=== PATIENT | female | born 1955 | race Caucasian/White ===

== ENCOUNTER 2019-01-14 23:28 | Inpatient (IN) | payer OTHER ==
[~2019-01-14] VITALS: Ht 165.1 cm; Wt 89.6 kg
--- OUTSIDE RECORDS SUMMARY | ~2019-01-14 | XMS | Clinical Summary ---
Demographics + + + | Address | [address] | | | [address] | | | [place] [address] | + + + | Home Phone | | + + + | Preferred Language | Unknown | + + + | Marital Status | | + + + | Tenriism Affiliation | Unknown | + + + | Race | Unknown | + + + | Ethnic Group | Unknown | + + + Author + + + | Author | [facility] | | | and [place] | + + + | Organization | [facility] | | | and [place] | + + + | Address | Unknown | + + + | Phone | Unavailable | + + + Care Team Providers + +------+ + | Care Metal Base Blocker Name | Role | Phone | + +------+ + | Braydon Lowry DO | PCP | Unavailable | + +------+ + Allergies Not on File Medications Not on file Active Problems Not on file Immunizations + + + + | Name | Dates Previously Given | Next Due | + + + [...] Filed Vital Signs + + + + | Vital Sign | Reading | Time Taken | + + + + | Blood Pressure | 134/69 | 07/27/2016 1101 PDT | + + + + | Pulse | 67 | 07/27/2016 1101 PDT | + + + + | Temperature | 36.2 C (97.1 F) | 06/01/2016 1350 PST | + + + + | Respiratory Rate | 14 | 06/01/2016 1350 PST | + + + + | Oxygen Saturation | - | - | + + + + | Inhaled Oxygen | - | - | | Concentration | | | + + + + | Weight | 86.2 kg (190 lb) | 07/27/20161100 PDT | + + + + | Height | 165.1 cm (5' 5") | 07/27/20161100 PDT | + + + + | Body Mass Index | 31.62 | 07/27/20161100 PDT | + + + + Plan of Treatment + + + + + | Health Maintenance | Due Date | Last Done | Comments | + + + + + | Vaccine: | | | | | Dtap/Tdap/Td (1 - | 5 | | | | Tdap) | | [...]
--- OUTSIDE RECORDS SUMMARY | ~2019-01-14 | XMS | Clinical Summary ---
Demographics + + + | Address | [address] | | | [address] | | | [place] [address] | + + + | Home Phone | | + + + | Preferred Language | Unknown | + + + | Marital Status | | + + + | Confucianism Affiliation | Unknown | + + + | Race | Unknown | + + + | Ethnic Group | Unknown | + + + Author + + + | Author | [facility] [email or web address] (Historical as of | | | 11-25-18) | + + + | Organization | [facility] [email or web address] (Historical as of | | | 11-25-18) [...] [place] | | | | | [id number] | | + + + + + Care Team Providers + +------+ + | Care Traveler Changer Name | Role | Phone | + [...] | 20 | | e | | [address] UNITS capsule | | | | 16 [...] +------+-------+ + | PREMERA | PREMER | [id number] | | | [address] [address] | | | A BLUE | | | | [place], [place] | | | CROSS | | | | [phone] | | | FED | | | [...] | sammi | | | [phone] | [phone] | + +--------+ +--------+ + +
--- OUTSIDE RECORDS SUMMARY | ~2019-01-14 | XMS | Clinical Summary ---
Demographics + + + | Address | [address] | | | [address] | | | [place] [address] | + + + | Home Phone | | + + + | Preferred Language | Unknown | + + + | Marital Status | | + + + | Caodaism Affiliation | Unknown | + + + | Race | Unknown | + + + | Ethnic Group | Unknown | + + + Author + + + | Author | [facility] (Historical as of | | | 11-25-18) | + + + | Organization | [facility] (Historical as of | | | 11-25-18) [...] [place] | | | | | [phone] | | + + + + + Care Team Providers + +------+ + | Care Manager Electronic Name | Role | Phone | + [...] | 20 | | e | | [address] UNITS capsule | | | | 16 [...] +------+-------+ + | PREMERA | PREMER | [id number] | | | [address] [address] | | | A BLUE | | | | [place], [place] | | | CROSS | | | | [phone] | | | FED | | | [...] | sammi | | | [phone] | [phone] | + +--------+ +--------+ + +
--- OUTSIDE RECORDS SUMMARY | ~2019-01-14 | XMS | Clinical Summary ---
Demographics + + + | Address | [address] | | | [address] | | | [place] [address] | + + + | Home Phone | | + + + | Preferred Language | Unknown | + + + | Marital Status | | + + + | Scientologist Affiliation | Unknown | + + + | Race | Unknown | + + + | Ethnic Group | Unknown | + + + Author + + + | Author | [facility] | | | and [place] | + + + | Organization | [facility] | | | and [place] | + + + | Address | Unknown | + + + | Phone | Unavailable | + + + Care Team Providers + +------+ + | Care Commercial Baker Helper Name | Role | Phone | + [...]
--- OUTSIDE RECORDS SUMMARY | ~2019-01-14 | XMS | Clinical Summary ---
Demographics + + + | Address | [address] | | | [address] | | | [place] [address] | + + + | Home Phone | | + + + | Preferred Language | Unknown | + + + | Marital Status | | + + + | Presybeterian Affiliation | Unknown | + + + | Race | Unknown | + + + | Ethnic Group | Unknown | + + + Author + + + | Author | [facility] [employer] (Historical as of | | | 11-25-18) | + + + | Organization | [facility] [employer] (Historical as of | | | 11-25-18) [...] [place] | | | | | [phone] | | + + + + + Care Team Providers + +------+ + | Care Qa Analyst Name | Role | Phone | [...] | 20 | | e | | [address] UNITS capsule | | | | 16 [...] +------+-------+ + | PREMERA | PREMER | [id number] | | | [address] [address] | | | A BLUE | | | | [place], [place] | | | CROSS | | | | [phone] | | | FED | | | [...] | sammi | | | [phone] | [phone] | + +--------+ +--------+ + +
--- OUTSIDE RECORDS SUMMARY | ~2019-01-14 | XMS | Clinical Summary ---
Demographics + + + | Address | [address] | | | [address] | | | [place] [address] | + + + | Home Phone | | + + + | Preferred Language | Unknown | + + + | Marital Status | | + + + | Yarsanism Affiliation | Unknown | + + + | Race | Unknown | + + + | Ethnic Group | Unknown | + + + Author + + + | Author | [facility] | | | and [place] | + + + | Organization | [facility] | | | and [place] | + + + | Address | Unknown | + + + | Phone | Unavailable | + + + Care Team Providers + +------+ + | Care Marketing Account Executive Name | Role | Phone | [...]
[2019-01-14] MEDS ORDERED: CARAFATE1 GM/10 ML PO (23:48)
[2019-01-14] MEDS ORDERED: PLAVIX75 MG PO (23:48)
[2019-01-14] MEDS ORDERED: CARVEDILOL3.125 MG PO (23:49)
[2019-01-14] MEDS ORDERED: PRAVACHOL40 MG PO (23:49)
[2019-01-14] MEDS ORDERED: NOVOLOG MI100 UNIT/1 SUB-Q (23:49)
--- NOTE | 2019-01-15 03:57 | NUR ---
PT ARRIVED AT 0245 TO FLOOR WITH . V/S ARE WDL. HER BP HAS DROPPED SIGNIFICANTLY FROM ED TO MS TRANSFER. WILL CONTINUE TO MONITOR. ALL LOBES ARE CLEAR, ABD SOUNDS ARE PRESENT, ABD IS SOFT BUT TENDER TO TOUCH ON THE LEFT SIDE. NO PERIPHERAL EDEMA NOTED AND OVERALL STRENGTH IS +, PT IS AAOX4. PT DENIES PAIN AND N/V THUS FAR.
--- NOTE | 2019-01-15 04:18 | NUR ---
CALL LIGHT ANSWERED. SBA TO RESTROOM FOR VOID AND BACK TO BED. PT RATES PAIN 7/10 IN UPPER EPIGASTRIC AREA. PRN PAIN MEDICATION ADMINISTERED. CALL LIGHT IN REACH. IVF INFUSING WNL.
--- NOTE | 2019-01-15 06:35 | NUR ---
PT ARRIVED ON FLOOR AT 0245. SO FAR PT HAS ONLY REQUIRED IV MORPHINE X1 AND HAS NOT HAD ANY N/V. ALL LOBES ARE CLEAR, ABD IS SOFT TO TOUCH BUT TENDER ON THE LEFT SIDE. NO PERIPHERAL EDMEMA NOTED, V/S ARE WDL.
--- NOTE | 2019-01-15 08:46 | NUR ---
PT SITTING UP IN BED AWAKE. PT AND AWAITING POC AND EVALUATION FROM DR. WOMACK. PT REPORTING 7/10 L EPIGASTRIC PAIN, MEDICATED WITH IV MORPHINE. DENIES NAUSEA OR OTHER CONCERN. IV INFUSING WNL IN RIGHT AC, DRESSING CDI. TRACE EDEMA OF BLE NOTED. CALL LIGHT WITHIN REACH.
--- NOTE | 2019-01-15 11:27 | NUR ---
PT REPORTS NAUSEA AFTER STARTING MIRALAX PREP. MEDICATED WITH IV ZOFRAN.
--- NOTE | 2019-01-15 11:29 | NUR ---
PT RESTING IN BED, MENTIONED THAT SHE IS MORE CONMFORTABLE THAN WHEN SHE CAME IN. WAITING TODAY FOR SCOPE AND MORE TESTS TO KNOW WHAT STEPS TO TAKE NEXT. PT REQUESTED PRAYER, WILL FOLLOW NEEDED
--- NOTE | 2019-01-15 12:15 | NUR ---
REPORTS NAUSEA RESOLVED AT THIS TIME. AT BEDSIDE. NO NEEDS OR CONCERNS AT THIS TIME. CALL LIGHT WITHIN REACH.
--- NOTE | 2019-01-15 12:20 | NUR ---
SPOKE WITH PATIENT IN ROOM. PATIENT LIVES WITH . KNOWS NO BARRIERS TO RETURNING HOME SAFELY AT DISCHARGE. WILL FOLLOW NEEDED.
[2019-01-15] MEDS ORDERED: GLYBURIDE2.5 MG PO (12:42)
[2019-01-15] MEDS ORDERED: GABAPENTIN300 MG PO (12:43)
--- NOTE | 2019-01-15 15:49 | NUR ---
PT REPORTS IMPROVEMENT IN PAIN AND NAUSEA AFTER IV TYLENOL ADMINISTRATION. UP TO RESTROOM INDEPENDENTLY. FINISHED WITH FIRST BOTTLE OF MIRALAX, STARTING SECOND ONE AT THIS TIME. PT AT BEDSIDE.
--- NOTE | 2019-01-15 16:48 | EKG ---
[facility] [address] [place], [place] [address] Signed Sinus rhythm with occasional premature ventricular complexes Otherwise normal ECG No previous ECGs available Confirmed by SAV ASHTON DO ([id number]) on 01/15/2019 4:48:39 PM Electronically Signed By: SAV ASHTON DO 01/15/19 1648 PATIENT NAME: CAPRICE AMADOR Electrocardiogram DATE OF : 55 PHYSICIAN: SAV ASHTON DO REPORT #: [id number] REPORT IS CONFIDENTIAL AND NOT TO BE RELEASED WITHOUT AUTHORIZATION
--- NOTE | 2019-01-15 18:25 | NUR ---
PT LYING IN BED. UP INDEPENDENTLY TO RESTROOM. DENIES NEEDS OR CONCERNS AT THIS TIME. IV INFUSING WNL IN RIGHT ARM. CALL LIGHT WITHIN REACH.
--- NOTE | 2019-01-15 20:10 | NUR ---
RECEIVED REPORT FROM DAY SHIFT RN. PATIENT IS RESTING IN BED. PATIENT RATES PAIN AT A 8/10. PATIENT GIVEN PRN PAIN MEDICATION PER ORDER. NO FURTHER NEEDS NOTED. CALL LIGHT IN REACH.
--- NOTE | 2019-01-15 21:05 | NUR ---
PATIENTS ASSESMENT COMPLETED. PATIENT IS RESTING IN BED. PATIENT IS INDEPENDENT IN THE ROOM AND HAS AN ESTIMATED 1/2 GATORADE BOTTLE OF BOWEL PREP LEFT. PATIENT DENIES ANY NAUSEA. PATIENT RATES PAIN AT A 7/10. PATIENT GIVEN PRN TYLENOL PER ORDER FOR PAIN. PATIENTS IV IS INFUSING PER ORDER. PATIENTS EVENING MEDICATIONS GIVEN PER ORDER. PATIENT HAS HYPERACTIVE BOWEL TONES. CRAMPING NOTED. PATIENT DENIES ANY NEEDS. CALL LIGHT IN REACH.
--- NOTE | 2019-01-15 22:15 | NUR ---
PATIENT IS RESTING IN BED WATCHING TV. PATIENT RATES PAIN AT A 7/10. PATIENT GIVEN PRN PAIN MEDICATION PER ORDER. PATIENT DENIES ANY FURTHER NEEDS AT THIS TIME. ABOUT 200ML LEFT OF BOWEL PREP. CALL LIGHT IN REACH.
--- NOTE | 2019-01-15 23:25 | NUR ---
PATIENT IS RESTING IN BED. PATIENT RATES PAIN AT A 3/10. PATIENT DENIES THE NEED FOR PAIN MEDICATION AT THIS TIME. CALL LIGHT IN REACH.
--- NOTE | 2019-01-16 00:16 | NUR ---
PATIENT IS RESTING IN BED WATCHING TV. PATIENT DENIES ANY NAUSEA. NO PAIN NOTED. CALL LIGHT IN REACH.
--- NOTE | 2019-01-16 02:13 | NUR ---
PATIENT ASSESMENT COMPLETED. PATIENT RATES PAIN AT A 7/10 IN HER ABD. PATIENT GIVEN PRN PAIN MEDICATION PER ORDER. PATIENTS SCHEDULED MEDICATIONS GIVEN PER ORDER. PATIENTS BMS ARE LOOSE WITH SMALL SEDIMENT NOTED. PATIENT DENIES ANY NAUSEA. VITALS TAKEN AND RECORDED. INTAKE AND OUPUT RECORDED. PATIENT DENIES ANY FURTHER NEEDS. CALL LIGHT IN REACH.
--- NOTE | 2019-01-16 02:59 | NUR ---
PATIENT IS RESTING IN BED. PATIENT RATES PAIN AT A 4/10. PATIENT DENIES THE NEED FOR PAIN MEDICATION AT THIS TIME. PATIENT DENIES ANY FURTHER NEEDS. CALL LIGHT IN REACH.
--- NOTE | 2019-01-16 04:07 | NUR ---
PATIENT CALLED AND COMPLAINED AT OF ABD PAIN AT AN 8/10. PATIENT GIVEN PRN PAIN MEDICATION PER ORDER. PATIENT DENIES ANY FURTHER NEEDS AT THIS TIME. CALL LIGHT IN REACH.
--- NOTE | 2019-01-16 05:02 | NUR ---
PATIENT RESTED ON AND OFF THROUGHOUT THE SHIFT. PATIENT IS NPO AT THIS TIME. PATIENT IS ON RA. PATIENT IS INDEPENDENT IN THE ROOM. PATIENT COMPLETED BOWEL PREP AT APPROX 2300. PATIENT HAD MULTIPLE LIQUID BMS. PATIENT RECEIVED PRN PAIN MEDICATION MULTIPLE TIMES. PATIENT DENIED ANY NAUSEA. PATIENT IS AAOX3 AND USES CALL LIGHT APPROPRIATELY.
--- NOTE | 2019-01-16 05:42 | NUR ---
PATIENT CALLED AND NOTIFIED STAFF THAT SHE WAS FEELING LIKE HER STOMACH WAS UPSET. PATIENT GIVEN PRN NAUSEA MEDICATION PER ORDER. PATIENT COMPLAINS OF PAIN. PATIENT HAS ELEVAED TEMP. PATIENT GIVEN PRN TYLENOL FOR TEMP AND PAIN. PATIENTS INTAKE AND OUPUT REOCRDED. PATIENT DENIES ANY FURTHER NEEDS. CALL LIGHT IN REACH.
--- NOTE | 2019-01-16 09:09 | NUR ---
SPOKE WITH PT AND . THEY WOULD LIKE HER IMAGING RELEASED TO DAUGHTER AT [facility]. GIVEN RELEASE FORM TO FILL OUT AND SIGN.
--- NOTE | 2019-01-16 09:10 | NUR ---
PT SITTING UP IN BED AWAKE WATCHING TV. REPORTS 6/10 ABD PAIN. MEDICATED WITH IV MORHPINE. DENIES NAUSEA AT THIS TIME. HAD MULTIPLE LOOSE BM'S LAST NIGHT AFTER BOWEL PREP. NO BASSEM BLOOD NOTED. NO EMSIS. NOTED H&H LOW THIS AM. NOTIFIED DR. WOMACK. RECIEVED ORDER FOR TYPE AND CROSS FOR 2 UNITS PRB'S ON HOLD. PT NPO. IV INFUSING WNL. AT BEDSIDE. CALL LIGHT WITHIN REACH.
--- NOTE | 2019-01-16 09:46 | NUR ---
PATIENT RESTING IN BED. IN ROOM. VITAL SIGNS AND I&O DONE. LOW BLOOD PRESSURE. RN NOTIFIED. CALL LIGHT WITHIN REACH. NO OTHER NEEDS AT THIS TIME
[2019-01-16] MEDS ORDERED: CARVEDILOL25 MG PO (10:06)
[2019-01-16] MEDS ORDERED: LOSARTAN POTASS50 MG PO (12:05)
[2019-01-16] MEDS ORDERED: HYDROCHLOROTH12.5 MG PO (12:05)
--- NOTE | 2019-01-16 12:06 | NUR ---
MED REC COMPLETE
--- NOTE | 2019-01-16 13:45 | NUR ---
PT UP TO VOID WITH SBA. TRANSFERRED INDEPENDENTLY TO STRETCHER AND TRANSPORTED TO OR FOR COLONOSCOPY. LINENS CHANGED. FAMILY REMAINS IN ROOM.
--- NOTE | 2019-01-16 13:52 | NUR ---
PATIENT IN SURGERY. I&O DONE.
--- NOTE | 2019-01-16 14:16 | NUR ---
PT TAKEN TO OR FOR SCOPE. FAMILY WAITING IN RM, WILL FOLLOW NEEDED
--- NOTE | 2019-01-16 15:13 | NUR ---
01/16/19 1513 Ara Jeter 1510 PATIENT ARRIVES TO PACU SLEEPING, DOES NOT RESPOND TO VERBAL STIMULI. RESP EVEN AND UNLABORED, ORAL AIRWAY IN PLACE, MASK AT 10 LITERS, DECREASED TO 6 LITERS.
--- NOTE | 2019-01-16 16:04 | NUR ---
PT RETURNED FROM OR. DROWSY BUT ORIENTED. STATED SHE NEEDED TO USE RESTROOM. STEADY ON FEET WITH SBA TO BATHROOM. PASSED MODERATE AMOUNT OF GAS. AMB TO HOSPITAL BED. VS STABLE. PT REPORTING 8/10 LEFT EPIGASTRIC PAIN. MEDICATED WITH IV MORPHINE. DENIES NAUSEA. CLEAR LIQUIDS ORDERED. AND DAUGHTER AT BEDSIDE. CALL LIGHT WITHIN REACH.
--- NOTE | 2019-01-16 17:49 | NUR ---
PATIENT RESTING IN BED. AND DAUGHTER IN ROOM. VITAL SIGNS AND I&O DONE. PATIENT COMPLAINS ABOUT PAIN. RN NOTIFIED. CALL LIGHT WITHIN REACH. NO OTHER NEEDS AT THIS TIME
--- NOTE | 2019-01-16 17:50 | NUR ---
PT REPORTING 8/10 ABD PAIN. MEDICATED WITH IV MORPHINE. TAKING SIPS OF WATER. KARTHIK WELL. DAUGHTER AND AT BEDSIDE. CALL LIGHT WITHIN REACH.
--- NOTE | 2019-01-16 20:18 | NUR ---
RECEIVED REPORT FROM DAY SHIFT RN. PATIENT IS RESTING IN BED. PATIENT COMPLAINS AT OF PAIN AND NAUSEA. PATIENT GIVEN PRN NAUSEA AND PAIN MEDICATION PER ORDER. PATIENT HAS FAMILY PRESENT NO FURTHER NEEDS NOTED. CALL LIGHT IN REACH.
--- NOTE | 2019-01-16 20:47 | NUR ---
PT IV FLUIDS COMPLETE, NEW BAG INFUSING, WARM BLANKET PROVIDED. AFTER USING BATHROOM, ASSISTED. BACK IN BED, PERSONAL SUPPLIES WITHIN REACH.
--- NOTE | 2019-01-16 21:40 | NUR ---
PATIENT ASSESEMENT COMPLETED. PATIENTS VITALS TAKEN AND RECORDED. INTAKE AND OUPUT RECORDED. PATIENTS EVENING MEDICATIONS GIVEN PER ORDER. PATIENT REPORTS 6/10 PAIN IN HER LUQ AREA. PATIENT GIVEN PRN PAIN MEDICATION PER ORDER. PATIENT DENIES ANY NAUSEA. PATIENTS ABD IS SOFT BUT TENDER. PATIENT HAS FAMILY PRESENT IN THE ROOM. NO FURTHER NEEDS NOTED. CALL LIGHT IN REACH.
--- NOTE | 2019-01-16 23:02 | NUR ---
PATIENT IS RESTING IN BED WATCHING TV. PATIENT RATES PAIN AT A 4/10. PATIENT DENIES THE NEED FOR PAIN MEDICATION AT THIS TIME. PATIENT DENIES ANY NAUSEA. NO NEEDS NOTED. IV INFUSING PER ORDER. ABX INFUSING PER ORDER. CALL LIGHT IN REACH. ASLEEP ON THE COUCH.
--- NOTE | 2019-01-17 01:09 | NUR ---
PATIENT IS RESTING IN BED AND IS IN RECLINER WATCHING TV. PATIENT DENIES ANY PAIN OR NAUSEA. NO NEEDS NOTED. CALL LIGHT IN REACH.
--- NOTE | 2019-01-17 01:39 | NUR ---
PATIENTS SCHEDULED MEDICATIONS GIVEN PER ORDER. PATIENT DENIES ANY PAIN OR NAUSEA. PATIENTS VITALS TAKEN AND RECORDED. INTAKE AND OUPUT RECORDED. PATIENT IS RESTING IN BED. PATIENTS REMAINS IN THE ROOM. PATIENT REFUSES 1 UNIT OF INSULIN FOR A 150 BS. PATIENT EDUCATED ON INSULIN AN SS. PATIENT VERBALIZES UNDERSTANDING AND STILL DECLINES. NO FURTHER NEEDS NOTED. CALL LIGHT IN REACH.
--- NOTE | 2019-01-17 03:45 | NUR ---
PATIENT CALLED AND REQUESTED PAIN MEDICATION FOR 8/10 PAIN IN HER LUQ. PATIENT GIVEN PRN PAIN MEDICATION PER ORDER. PATIENT DENIES ANY NAUSEA. IV INFUSING PER ORDER. PATIENTS REMAINS IN THE ROOM. PATIENT DENIES ANY FURTHER NEEDS. CALL LIGHT IN REACH.
--- NOTE | 2019-01-17 05:09 | NUR ---
PATIENT CALLED AND REQUESTED PAIN MEDICATION. PATIENT GIVEN PRN PAIN MEDICATION FOR 7/10 PAIN IN HER LUQ. PATIENT DENIES ANY NAUSEA. VITALS TAKEN AND RECORDED. INTAKE AND OUPUT RECORDED. IV INFUSING PER ORDER. NO FURTHER NEEDS NOTED. CALL LIGHT IN REACH.
--- NOTE | 2019-01-17 05:38 | NUR ---
PATIENT STRUGGLED TO REST THIS SHIFT. PATIENT IS ON CLEARS, TOELRATING OK, DECREASED APPETITE, AND PRN NAUSEA MEDICATION GIVEN X1. PATIENT RECEIVED PRN PAIN MEDICATION MULTIPLE TIMES. PATIENT IS INDEPENDENT IN THE ROOM. PATIENT HAS SCDS IN USE. PATIENT HAS IV INFUSING PER ORDER. PATEINT IS ON RA. ACTIVE BOWEL TONES. PATIENT IS AAOX3 AND USES CALL LIGHT APPROPRIATELY.
--- NOTE | 2019-01-17 06:09 | NUR ---
PATIENT GIVEN PRN NAUSEA MEDICATION AND PRN TYLENOL PER ORDER FOR PAIN IN HER LUQ THAT PATIENTS RATES AT A 5/10. PATIENT DENIES ANY FURTHER NEEDS. CALL LIGHT IN REACH.
--- NOTE | 2019-01-17 07:30 | NUR ---
0708: BEDSIDE REPORT RECIEVED FROM SUZIE SOARES. PT RESTING IN HER BED STATING HER PAIN IS A 7 WHICH IS TOLERABLE AT THIS TIME. CALL MOORE WITHIN REACH AND SHE DENIES ANY NEW PROBLMES. TEMP IS NOW 98.6.
--- NOTE | 2019-01-17 10:23 | NUR ---
BLOOD INFUSING AT THIS TIME ORDERED. PT DENIES ANY NEW PROBLEMS.
--- NOTE | 2019-01-17 10:24 | HP ---
[facility] [address], [place] [address] Signed ADMISSION DATE: 01/15/2019 REASON FOR ADMISSION: Complex left upper quadrant inflammatory process, possible abscess. HISTORY: This 63-year-old white woman has had 2 weeks of feeling unwell overall. 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 She was evaluated by Dr. Huff with epigastric and left subcostal and left flank pain. Concern was maintained for possible coronary ischemia at 1st and she was given nitroglycerin, which was of no benefit. She is noted to have an elevated white count greater than 14,000. Subsequently underwent a CT scan of the abdomen. This showed a fluid collection with possible air-fluid levels in the left upper quadrant in the region of the tail of the pancreas contiguous with the splenic flexure of the colon. This was interpreted by the radiologist at the time of a possible pancreatic or colonic fistula with abscess. She is admitted for further evaluation and care, begun on broad-spectrum antibiotics. The patient confirms to me the story that I have heard already. She has no prior history of pancreatitis. Does not drink alcohol and has had colonoscopy about three years ago in the [facility]. She says she has had polyps in the past. She additionally says that she has family history of colon cancer in her father. Her other medical issues include diabetes mellitus. She has had no fever or chills. Her appetite has been rather poor for the past 2 weeks. She is seen by [facility]. PAST MEDICAL HISTORY: Also includes coronary stenting 17 years ago. MEDICATIONS: Medicines at admission include carvedilol 3.125 mg p.o. b.i.d., Plavix 75 mg p.o. daily, NovoLog 70/30, 15 units subcu b.i.d., pravastatin 40 mg p.o. daily, and sucralfate suspension 1 g p.o. as needed. REVIEW OF SYSTEMS: She denies any shortness of breath or chest pain. She had no dysphagia. Denies any hematemesis or recent blood per rectum. Her pain is mostly in the left subcostal area. SOCIAL HISTORY: Electronically Signed By: POPEYE WOMACK MD 01/17/19 [facility] PATIENT NAME: CAPRICE AMADOR HISTORY AND PHYSICAL DATE OF : 55 REPORT #: [id number] PHYSICIAN: POPEYE WOMACK MD PCP: YOKASTA LIANG REPORT IS CONFIDENTIAL AND NOT TO BE RELEASED WITHOUT AUTHORIZATION [facility] [address] [place] [id number] Signed She lives in [place]. She is . Her accompanies her. She is retired. She previously worked for the [employer]. She has grown children. PHYSICAL EXAMINATION: GENERAL: This is an obese white woman who looks to be comfortable at this time. VITAL SIGNS: Temperature of 98, pulse is 66, blood pressure 112/58, pulse oximetry 95% on room air. NECK: Shows no thyromegaly or cervical adenopathy. Trachea is midline. CHEST: Shows normal respiratory excursion. Pulses regular. ABDOMEN: Obese and soft. There is mild tenderness in the left upper quadrant. No sign of ascites. ABDOMEN: Obese. EXTREMITIES: Show no clubbing, cyanosis, or edema. LABORATORY STUDIES: Show white count of 14.7, hematocrit 29.9, platelets 687,000. Chem profile is normal. Creatinine 0.72, glucose 131. Liver enzymes appear normal. Troponin is less than 0.01. Globulin 4.0. Amylase 27, lipase 24. I reviewed the CT scan in detail with Dr. Velez, new radiologist on duty. ASSESSMENT: She has an inflammatory process in the left upper quadrant, which bridges the space between the tail of the pancreas and the splenic flexure of the colon. I think it more likely this represents a colonic lesion rather than a pancreatic pseudocyst or pancreatic fistula to the colon. I think the pancreas is innocent bystander in all of this most likely. 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 She does not seem to have extensive diverticula otherwise. At this point, continued antibiotic therapy, IV fluids, and a bowel prep would be appropriate anticipating colonoscopy. If the neoplasm is noted at the splenic flexure and this might represent a perforated colonic neoplasm, for which operative management would be undertaken. Drainage of the abscess at present would be necessary and if the colon was entirely normal, then reconsideration of the etiology of the problem would be made. In the meantime, we will obtain a CA-19-9 tumor marker and CEA level, of which neither would be diagnostic but possibly instructive and determine the etiology of this inflammatory process. Notably, the amylase and lipase are normal and she has had no prior history of Electronically Signed By: POPEYE WOMACK MD 01/17/19 1024 PATIENT NAME: CAPRICE AMADOR HISTORY AND PHYSICAL DATE OF : 55 REPORT #: [id number] PHYSICIAN: POPEYE WOMACK MD PCP: YOKASTA LIANG REPORT IS CONFIDENTIAL AND NOT TO BE RELEASED WITHOUT AUTHORIZATION [facility] [address] [address] Signed pancreatitis or alcohol abuse. MD CLEMENT Landon/EBENEZER /[id number] cc: MD Yokasta Keys PA Copies: GABRIELA HUFF MD, RANDALL PA ~ Electronically Signed By: POPEYE WOMACK MD 01/17/19 1024 PATIENT NAME: CAPRICE AMADOR HISTORY AND PHYSICAL DATE OF : 55 REPORT #: [id number] PHYSICIAN: POPEYE WOMACK MD PCP: YOKASTA LIANG REPORT IS CONFIDENTIAL AND NOT TO BE RELEASED WITHOUT AUTHORIZATION
--- NOTE | 2019-01-17 10:24 | OR ---
[facility] [address], [place] [address] Signed DATE OF OPERATION: 01/16/2019 SURGEON: Popeye Womack MD PREOPERATIVE DIAGNOSES: 1. Left upper quadrant pericolonic fluid collection in region of tail of pancreas. 2. Progressive anemia. 3. Family history of colon cancer. POSTOPERATIVE DIAGNOSES: Extensive diverticular changes of sigmoid and left colon. No evidence of endoluminal lesion of colon. PROCEDURE PERFORMED: Total colonoscopy. ANESTHESIA: Intravenous sedation with propofol infusion. ANESTHESIOLOGIST: Popeye Dexter CRNA. INDICATIONS: This 63-year-old white woman was admitted by me yesterday through the emergency room having two weeks of left upper abdominal pain. She is a patient of Yokasta Liang. The patient was evaluated by Dr. Huff in the emergency room and a CT scan was performed, which showed a complex fluid collection with possible air-fluid levels in the left upper quadrant in the region of tail of pancreas, considered contiguous with the splenic flexure of the colon. Initial interpretation by the radiologist was a possible pancreatic or colonic fistula with abscess. She has been admitted to the hospital, given intravenous antibiotics, broad spectrum, and is improved. She was noted to have an initial hematocrit of 31, now 24 without overt bleeding anywhere. She does have family history of colon cancer. She had a colonoscopy three years ago, which was said to be with some polyps according to her description. She does not drink alcohol on a routine basis. Has no prior history of pancreatitis. Review of her CT scan with Dr. Velez, radiologist, shows no sign of pancreatic ductal dilatation and the fluid collection appears to be inferior to the tail of the pancreas and next to the splenic flexure of the colon. On CT scan, diverticula are not noted. She has undergone a careful bowel prep and is now to undergo colonoscopy to assess if there is an intraluminal lesion, which may account for the finding. The risks of bleeding, Electronically Signed By: POPEYE WOMACK MD 01/17/19 1024 PATIENT NAME: CAPRICE AMADOR OPERATIVE REPORT DATE OF : 55 REPORT #: [id number] PHYSICIAN: POPEYE WOMACK MD PCP: YOKASTA LIANG REPORT IS CONFIDENTIAL AND NOT TO BE RELEASED WITHOUT AUTHORIZATION [facility] [address], [place] [address] Signed infection, and perforation were reviewed with her and her , they understand and wished to proceed. FINDINGS: The prep was good. Passage to the sigmoid and left colon was challenging on the basis of extensive diverticular disease, somehow not noted on CT scan. Passage beyond the splenic flexure into the transverse and ultimately right colon showed no sign of neoplastic change, only diverticulosis. DESCRIPTION OF PROCEDURE: The patient was brought to the endoscopy suite and placed in lateral decubitus position, given intravenous sedation to the point of slurred speech and nystagmus with full cardiopulmonary monitoring by the burn out scarfing operator. The patient is already on antibiotic meropenem and was dosed just prior to the endoscopy session. After satisfactory sedation with propofol infusional anesthesia and full cardiopulmonary monitoring, digital rectal examination was performed, which was normal. An Olympus video colonoscope was passed in the rectum and manipulated into the sigmoid. Angulation deformity and profound diverticular changes were noted with care, persistence, and avoidance of excessive insufflation of air. The scope was advanced through the colon, ultimately beyond the splenic flexure to the transverse and ultimately right colon, and I believe the cecum itself. In keeping with minimal air insufflation, challenging the colon wall with additional pressure to manipulate further was deemed inadvisable. The scope was withdrawn from that point, affirming no evidence of intraluminal neoplastic lesion, only diverticular changes throughout. Retroflexed view was normal. The scope was removed and the patient was taken to recovery room in good condition. CONCLUDING DIAGNOSES: Extensive sigmoid and left-sided diverticular disease and scattered diverticula more proximally. It is uncertain if the pericolonic fluid collection represents a perforated diverticulitis issue or an another intraabdominal process, but it does not appear to be evidence of a perforated colon cancer. I am still unable to explain the anemia, however. Notably, her amylase and lipase are normal. She is not known to have pancreatitis in the past. PLAN: We will continue with IV antibiotics and further consideration of need for exploration to provide drainage. Electronically Signed By: POPEYE WOMACK MD 01/17/19 1024 PATIENT NAME: ACPRICE AMADOR OPERATIVE REPORT DATE OF : 55 REPORT #: [id number] PHYSICIAN: POPEYE WOMACK MD PCP: YOKASTA LIANG REPORT IS CONFIDENTIAL AND NOT TO BE RELEASED WITHOUT AUTHORIZATION [facility] [address] [place] [id number] Signed Popeye Womack MD JM/MODL /[id number] cc: ARIANA Dempsey MD Copies: YOKASTA LIANG SHELDON MD ~ Electronically Signed By: POPEYE WOMACK MD 01/17/19 1024 PATIENT NAME: CAPRICE AMADOR OPERATIVE REPORT DATE OF : 55 REPORT #: [id number] PHYSICIAN: POPEYE WOMACK MD PCP: YOKASTA LIANG REPORT IS CONFIDENTIAL AND NOT TO BE RELEASED WITHOUT AUTHORIZATION
--- NOTE | 2019-01-17 10:42 | NUR ---
PT CALLED AND STATES HER LEFT SIDED ABD PAIN IS AN 8/10, SEE EMAR. THE FIRST UNIT OF BLOOD CONTINUES TO INFUSE WITHOUT DIFFICULTY AND NO S/S REACTION NOTED.
--- NOTE | 2019-01-17 10:49 | NUR ---
PT STATES HER PAIN IS IMPROVING AND IS NOW A 6/10.
--- NOTE | 2019-01-17 12:16 | NUR ---
Pt sleeping, blood continues infusing at this time.
--- NOTE | 2019-01-17 13:34 | NUR ---
Pt's bp was lower than is baseline for her pre transfusion. Her spouse states her sbp runs about 145 normally.
--- NOTE | 2019-01-17 13:43 | NUR ---
PT RESTING IN HER BED STATING HER ABD PAIN IS DECREASING TO A 5 NOW AFTER THE PAIN MEDICATION. PT IS PLANNING TO GO TO CT ABOUT 1430.
--- NOTE | 2019-01-17 14:30 | NUR ---
I COULD TELL SOON I ENTERED PTS' RM COULD TELL SHE'S HAVING A TOUGH DAY. FINISHING UP SOME CONTRAST FOR A CT TO HAVE LATER TODAY. IN RM WITH PT. TRA STATED THAT HE WAS VERY RELIEVED THAT PT DID NOT HAVE CANCER. HE HAS HAD COLON CANCER AND WAS ON EDGE. GAVE PT A P.TOMWL, HAD PRAYER WITH BOTH AND REMINDED PT TO JUST WORK ON TODAY. GET INFO FROM CT, AND TACKLE TOMORROW WHEN IT COMES. WILL FOLLOW NEEDED
--- NOTE | 2019-01-17 14:56 | NUR ---
PT OFF FLOOR TO CT AT THIS TIME.
--- NOTE | 2019-01-17 15:29 | NUR ---
Pt returned to her room after her CT scan. She states her abd pain is an 8/10 at this time, see emar.
--- NOTE | 2019-01-17 15:47 | NUR ---
Pt running a temp of 101.4, pt handed her IS and requested to use it. Pt using it at this time. Pt medicated with iv tylenol at this time. Will continue to monitor.
--- NOTE | 2019-01-17 15:58 | NUR ---
DR WOMACK WAS CALLED AND NOTIFIED OF THE PT'S TEMP, BLOOD CULTURES ORDERED.
--- NOTE | 2019-01-17 17:39 | NUR ---
Pt resting in her bed using her IS and her temp is now 98.6. She states her abd pain is controlled at a 5/10.
--- NOTE | 2019-01-17 18:00 | NUR ---
ARMINDA CONTINUES TO NOT FEEL GOOD THROUGHOUT MY SHIFT. SHE HAS RATED HER PAIN FROM A 5-8/10 IN HER LEFT ABD WHICH HAS BEEN TREATED WITH MS WITH FAIR RESULTS. SHE HAS HAD NAUSEA SEVERAL TIMES WHICH SEEMS WORSE WITH EATING AND ACTIVITY WHICH WAS TREATED WITH ZOFRAN. HER H/H WAS 7.3/22.8 AND SHE RECEIVED TWO UNITS OF BLOOD ORDERED. THIS AFTERNOON THE PT SPIKED A TEMP OF 101.4 AND SHE WAS MEDICATED WITH IV TYLENOL AND USED HER IS, NOTIFIED AND BLOOD CULTURES ORDERED AND DRAWN. THE PT NOW STATES HER PAIN IS 5 WHICH IS ACCEPTABLE AND HER TEMP IS 98.6.
--- NOTE | 2019-01-17 18:14 | NUR ---
VITALS/I&Os RECORDED
--- NOTE | 2019-01-17 19:18 | NUR ---
CHARGE NURSE REPORT RECEIVED FROM MARIA A. NO NEEDS AT THIS TIME.
--- NOTE | 2019-01-17 19:20 | NUR ---
RECEIVED REPORT FROM DAY SHIFT RN. PATIENT IS RESTING IN BED. PATIENT DENIES ANY PAIN OR NASUEA. PATIENT IS REQUESTING A SHOWER AT THIS TIME. CALL LIGHT IN REACH.
--- NOTE | 2019-01-17 21:05 | NUR ---
PATIENT ASSESMENT COMPLETED. PATIENTS EVENING MEDCIATIONS GIVEN PER ORDER. PATIENT IS SL AT THIS TIME. TO TAKE A SHOWER. PATIENTS VITALS TAKEN AND RECORDED. INTAKE AND OUPUT RECORDED. WHEN PATIENT SAT AT THE EDGE OF THE BED PREPARING TO SHOWER PATIENT BECAME NAUSEOUS. PATIENT GIVEN PRN NAUSEA MEDICATION. PATIENT ASSISTED TO SHOWER BY ROBOT OPERATOR. PATIENTS BEDDING CHANGED. ROBOT OPERATOR REMAINS IN THE ROOM.
--- NOTE | 2019-01-17 21:25 | NUR ---
PATIENT BACK IN BED AFTER SHOWER. PATIENT RATES PAIN AT A 6/10. PATIENT GIVEN PRN PAIN MEDICATION PER ORDER. PATIENTS IV INFUSING PER ORDER. DR WOMACK IN THE ROOM TO DISCUSS SURGERY TOMORROW. ALL QUESTIONS ANSWERED. PATIENT DENIES ANY COMMENTS, QUESTIONS, OR CONCERNS ABOUT SURGERY. SCDS PLACE BACK IN AFTER SHOWER. PATIENT DENIES ANY FURTHER NEEDS AT THIS TIME. CALL LIGHT IN REACH.
--- NOTE | 2019-01-17 23:55 | NUR ---
PATIENT IS IN NEED OF A NEW IV TO INFUSE AX AND POTASSIUM. NEW IV STARTED BY ESTELLE SOARES. PATIENT NOW HAS ABX, POTASSIUM, AND IV FLUIDS INFUSING PER ORDER. PATIENT DENIES ANY FURTHER NEEDS. CALL LIGHT IN REACH.
--- NOTE | 2019-01-18 00:43 | NUR ---
PATIENT ASSISTED TO THE RESTROOM A SBA. PATIENT WAS ABLE TO VOID. PATIENT IS NOW BACK IN BED RESTING. PATIENT RATES PAIN AT AN 8/10. PATIENT GIVEN PRN PAIN MEDICATION PER ORDER. PATIENT IS NOW NPO. PATIENT DENIES ANY FURTHER NEEDS. CALL LIGHT IN REACH.
--- NOTE | 2019-01-18 02:32 | NUR ---
PATIENT ASSESMENT COMPLETED. PATIENT IS RESTING IN BED. UNFORTUNATELY PATIENT HAD ANOTHER IV NO LONGER PATENT. NEW IV STARTED BY ESTELLE SOARES. PATIENT IS RECEIVEING ABX PER ORDER. IV INFUSING PER ORDER. PATIENT RATES PAIN AT A 5/10. PATIENT IS REUSTING TYLENOL. PATIENT GIVEN PRN TYLENOL PER ORDER. PATIENT DENIES ANY NAUSEA. NO FURTHER NEEDS NOTED. CALL LIGHT IN REACH.
--- NOTE | 2019-01-18 04:31 | NUR ---
PATIENT CALLED AND REQUESTED PRN PAIN MEDICATION. PATIENT GIVEN PRN PAIN MEDICATION PER ORDER. PATIENT DENIES ANY NAUSEA. IV INFUSING PER ORDER. NO FURTHER NEEDS NOTED. CALL [facility] IN REACH.
--- NOTE | 2019-01-18 04:52 | NUR ---
PATIENT RESTED ON AND OFF THROUGHOUT THE SHIFT. PATIENT HAS BEEN NPO SINCE MIDNIGHT. PATIENT IS A SBA TO THE RESTROOM. PATIENT IS ON RA. PATIENT HAS ACTIVE BOWEL TONES. PATIENT RECEIVE PRN PAIN MEDICATION AND NAUSEA MEDICATION MULTIPLE TIMES FOR LUQ PAIN. PATIENT IS AAOX3. PATIENT HAS IV INFUSING PER ORDER.
--- NOTE | 2019-01-18 05:27 | NUR ---
PATIENTS VITALS TAKEN AND RECORDED. INTAKE AND OUPUT RECORDED. PATIENT DENIES ANY PAIN OR NAUSEA AT THIS TIME. CALL LIGHT IN REACH.
--- NOTE | 2019-01-18 09:00 | NUR ---
PT IS RESTING ON BED, READILY OPENS EYES AND RESPONDS TO QUESTIONS, STATES SHE IS VERY TIRED. DENIES NAUSEA, REPORTS MORPHINE IS EFFECTIVE PAIN CONTROL, ENC PT TO DEEP BREATHE AND USE IS WHEN AWAKE. AFEBRILE. AT BEDSIDE. DENIES ANY NEEDS.
--- NOTE | 2019-01-18 11:00 | NUR ---
PT HAS LOST 2ND IV SITE, VERY DIFFICULT IV START. RAC INFUSING WELL. SPOKE TO CHARGE NURSE ABOUT DIFFICULTY KEEPING IV SITES. CHARGE NUSE SPOKE WITH NURSE IN OR ABOUT MAY NEED LINE PLACEMENT.
--- NOTE | 2019-01-18 11:45 | NUR ---
observed pt resting. call light within reach.
--- NOTE | 2019-01-18 14:24 | NUR ---
PT RESTING IN BED, USING A MOIST SPONGE. SHE IS ALERT, ORIENTED AND JUST WAITING FOR SURGERY LATER THIS PM. CT WAS NOT DEFINATIVE HAD BEEN HOPED FOR, SO WILL DO SOME EXPLORATORY TO FIND LEAK. HAD PRAYER WITH PT AHD HER . REMINDED HER THAT GOAL FOR TODAY IS SURGERY, THEN RECOVERY. EXTENDED A BLESSING, WILL FOLLOW NEEDED
--- NOTE | 2019-01-18 14:51 | NUR ---
PT C/O PAIN IN IV SITE IN R HAND. UNABLE TO FLUSH OR DRAW BLOOD FROM SITE. UNABLE TO SEE GOOD VEIN FOR RESTART. EMILY FROM ICU WILL TRY TO PLACE IV.
--- NOTE | 2019-01-18 15:04 | NUR ---
Pt reported feeling nauseated. Addressed concern with primary nurse to see if Zofran order can be changed to PO. RN working on getting new IV line. Will continue to monitor.
--- NOTE | 2019-01-18 15:10 | NUR ---
Late entry d/t pt care performed at 1400. Went to administer IV Flagyl, assessed R hand IV line with flush. Pain and resistance with flushing changed dressing and tubing, resistance still occuring. Primary RN notified and working on getting another IV line. Pt has been identified as a difficult start. Anesthesiologist is evaluating pt to determine if peripheral line can be placed at this time prior to central line in OR. Notified primary RN that 1400 IV abx are delayed d/t lack of IV access.
--- NOTE | 2019-01-18 15:41 | NUR ---
MICHAEL SOARES IN TO START NEW IV TO RIGHT UPPER ARM. IV FLAGYL RESUMED FOR 30 MINUTES.
--- NOTE | 2019-01-18 16:15 | NUR ---
PT TO OR .
--- NOTE | 2019-01-18 21:20 | NUR ---
DERMATOLOGY SALES REPRESENTATIVE, KALEE, GAVE REPORT. pt DROWSY. SPOKE WITH MD AND THEN LEFT FOR THE NIGHT. ASSESSMENT DONE. GIA DRAIN RECENTLY EMPTIED. OSTOMY BEEFY. MIDLINE DRESSING AND GIA DRESSING CDI. pt DIAPHORETIC, COOL CLOTH APPLIED TO FOREHEAD. ON 2L O2 VIA NC. ON HEART MONITOR, SR WITH PVCs RATE IN THE 70'S. CURTAIN OPEN TO THE NURSES STATION.
--- NOTE | 2019-01-18 21:50 | NUR ---
01/18/192149 Joyce Yin 2041- PT ARRIVES TO CCU ROOM #129 NONAROUSABLE TO NOXIOUS STIMULI WITH AN OPA AT THE BEDSIDE. PT IS ON 10L VIA MASK. OXYGEN SAT LOW TO MID 90'S ON THIS. PT'S OXYGEN MASK FOGGING WELL. RESP EVEN AND UNLABORED. PT'S AT THE BEDSIDE. PT IS DIAPHORETIC, A COOL WASHCLOTH USED TO CLEAN OFF HER HEAD AND NECK AND THEN DRIED. PT'S HANDS AND EYES ARE ALSO SWOLLEN. POPEYE BACON CRNA AWARE OF ABOVE. 2052- PT IS MORE AROUSABLE AND FOLLOWS COMMAND TO OPEN HER MOUTH TO REMOVE OPA. 2101- BLOOD SUGAR 158, TAKEN BY RONALDO SPENCE RN. COOL WASHCLOTH PLACED TO PT'S HEAD. 2102- PT REPORTING HER PAIN TO BE A 10/10, FENTANYL GIVEN. OXYGEN TITRATED TO 2L VIA NC. OXYGEN SAT REMAINS LOW TO MID 90'S ON THIS. 2105- PT FALLS BACK TO SLEEP. RESP EVEN AND UNLABORED. 2112- PT HAS BEEN INTERMITTENTLY AROUSING. PT REPORTS HER PAIN TO CONTINUE TO BE A 10/10. FENTANYL GIVEN. 2114- PT FALLS BACK TO SLEEP. RESP EVEN AND UNLABORED. 2117- DR. WOMCAK AT THE BEDSIDE TO TALK WITH THE PT'S . 2124- REPORT GIVEN TO CCU RN'S RONALDO SPENCE RN AND KIMBERLY APONTE RN ALL QUESTIONS ANSWERED. PT REMAINS INTERMITTENTLY ASLEEP AND AWAKE. RESP EVEN AND UNLABORED. OXYGEN SAT LOW TO MID 90'S ON 2L VIA NC.
--- NOTE | 2019-01-18 22:00 | NUR ---
pt REPORTING 10/10 PAIN. PRN GIVEN (SEE MAR). SOME EDUCATION GIVEN. pt MORE AWAKE AND ALERT.
--- NOTE | 2019-01-18 23:20 | NUR ---
pt REPORTED 10/10 PAIN. PRN MED GIVEN WITH SCHEDULED MEDICATIONS (SEE MAR). ECKERT DRAINING. DRESSING CDI. IV ABX RUNNING IN LEFT HAND IV. IVF AND POTASSIUM INFUSING IN LEFT UPPER ARM IV. CURTAIN OPEN TO THE NURSES STATION.
--- NOTE | 2019-01-19 02:30 | NUR ---
pt REPORTED 10/10 PAIN. PRN GIVEN (SEE MAR). CHANGED GOWN AND GAVE BED BATH. OSTOMY WAFER LEAKING, CHANGED. STOMA RED AND BEEFY IN APPEARANCE. BROWN DRAINAGE. GIA DRAIN EMPTIED. DRESSING CDI. CALL LIGHT WITHIN REACH.
--- NOTE | 2019-01-19 03:31 | NUR ---
ROUNDED ON pt. RESTING WITH EYES CLOSED, RESPIRATIONS REGULAR AND UNLABORED. CALL LIGHT WITHIN REACH.
--- NOTE | 2019-01-19 06:07 | NUR ---
LAB INTO DRAW. DRESSING CHANGE ON IV IN LEFT UPPER ARM. STATES PAIN 8/10. SIPPING WATER AND WATCHING TV. EDUCATED ON PAIN MANAGEMENT AND WHEN NEXT DOSE OF PAIN MEDS AVAILABLE. pt AGREABLE. CALL LIGHT WITHIN REACH.
--- NOTE | 2019-01-19 08:51 | OR ---
[facility] [address] [place], [place] [address] Signed DATE OF OPERATION: 01/18/2019 SURGEON: Popeye Womack MD PREOPERATIVE DIAGNOSES: 1. Retroperitoneal/intra-abdominal abscess in the region of splenic hilum. 2. Anemia of unknown etiology. 3. Family history of colon cancer. 4. Obesity. POSTOPERATIVE DIAGNOSES: 1. Intra-abdominal and retroperitoneal abscess in the region of colonic mesentery at splenic flexure. 2. Profound desmoplastic response to inflammation. 3. Perforation of colon as an underlying etiology of abscess and fibrosis. PROCEDURE: 1. Exploration of abdomen with drainage of deep abdominal and retroperitoneal abscess. 2. Incomplete mobilization of splenic flexure. 3. Segmental resection of colon including transverse colon and splenic flexure with [id number] hand-sewn colocolostomy. 4. Protective diverting loop ileostomy. 5. Biopsy of retroperitoneum. All of these prolonged, complicated, difficult. IN HOME BABY SITTER: Nurse (Brenda Garcia RN). ANESTHESIOLOGIST: Popeye Dexter CRNA. INDICATION: This 63-year-old white woman was admitted through the emergency room on 01/14/2019, having 2 weeks of increasing left upper abdominal and lower chest wall pain. She was found on CT scan to have an abscess with air-fluid levels in the region of the tail of the pancreas in the splenic hilum with air bubbles highly consistent with abscess. She was admitted to the hospital, given intravenous antibiotics and further evaluation undertaken. Electronically Signed By: POPEYE WOMACK MD 01/19/19 0851 PATIENT NAME: CAPRICE AMADOR OPERATIVE REPORT DATE OF : 55 REPORT #: [id number] PHYSICIAN: POPEYE WOMACK MD PCP: YOKASTA MILLS REPORT IS CONFIDENTIAL AND NOT TO BE RELEASED WITHOUT AUTHORIZATION [facility] [address] [place], [place] [address] Signed She has prior history of colonoscopy 3 years ago in the [facility], which was said to be negative, though she may have had polyps. She does have family history of colon cancer in her mother. Interpreting radiologist initially thought the abscess was a pancreaticocolonic fistula; however, the patient has never had pancreatitis in any way, does not drink alcohol at all, has no prior history of pancreatitis in any way, and there is no intrapancreatic ductal dilatation. The patient's initial hematocrit was 31, subsequently 24. She has had no overt rectal bleeding. She underwent colonoscopy by me after bowel prep to assess if there may be a neoplastic portion of colon accounting for this. Passage of the scope was very difficult on the basis of profound diverticular changes and the extent to which colonoscopy was completed was thought to be well beyond the splenic flexure, though this is not entirely certain. She was transfused 2 units of packed red cells and her hematocrit has remained stable. She remains with no gastrointestinal bleeding. A CT scan with IV and GI contrast was undertaken with delayed phases so as to ascertain there was no vascular problem that may account for the inflammatory process as well as concurrent anemia and there appeared to be no sign of splenic artery aneurysm or anything of that sort. The location of the abscess appears to be in the region of the splenic hilum overall. She is admitted at this time to undergo exploration of the abdomen and drainage of the abscess and other indicated procedures. The patient and her understand the risks of bleeding, infection, failure to cure the problem, cardiovascular problems, need for bowel resection including possible need for colostomy or other ostomy type. Understanding this, they wished to proceed. FINDINGS: A rock-hard chronic inflammatory process was noted in the region of the splenic flexure of the colon. There was dense desmoplastic response between the spleen and the mesentery of the splenic flexure of the colon. An abscess was identified that was in the region of the right transverse colon, but deep within the abdomen and part of the root of the mesentery to a degree. Purulent material was noted and Gram stain and cultures were obtained. Additionally, there was a rock-hard fibrotic process of the area inferior to the pancreas as predicted, stomach was spared. It was ultimately found that the source of the abscess was that of a perforated colon. The segment of colon that was afflicted and the cause of the inflammatory process was ultimately mobilized and resected and when opened, appeared to have intense desmoplastic response as well as an obvious perforation and possibly a malignant source rather than the diverticular one, though that remains to be seen. Electronically Signed By: POPEYE WOMACK MD 01/19/19 0851 PATIENT NAME: CPARICE AMADOR OPERATIVE REPORT DATE OF : 55 REPORT #: [id number] PHYSICIAN: POPEYE WOMACK MD PCP: YOKASTA MILLS REPORT IS CONFIDENTIAL AND NOT TO BE RELEASED WITHOUT AUTHORIZATION [address] [address] Signed Given the anatomic findings and high probability that colocolostomy in the future would be profoundly difficult, a [id number] colocolostomy was undertaken from the left colon to the remaining right transverse colon. A protective ileostomy was fashioned as well. The gallbladder was tense and secondarily inflamed, but there was no evidence of palpable gallstones. The liver had some fatty infiltration, but no sign of neoplastic change, no sign of metastatic disease. Small bowel was run from the ligament of Treitz to the terminal ileum, which was normal. The remaining colon both distally and proximally was normal. She had undergone a bowel prep and a variable length colonoscopy. Colon was reasonably well prepped. DESCRIPTION OF PROCEDURE: The patient was brought to the operating room, given a general endotracheal anesthetic. A Gillis catheter was placed. She had done antibiotic meropenem. The abdomen was prepared with chlorhexidine solution and draped sterilely. A midline incision was made from the xiphoid inferiorly and later extended based on her abdominal obesity. The abdomen was entered. There was a bit of inflammatory fluid throughout, but no sign of carcinomatosis, no sign of blood, and no profound ascites particularly. Gentle palpation of the upper abdomen revealed a rock-hard process in the retroperitoneum below the stomach and in the region of the left transverse colon. A Bookwalter retractor was attached to the table. Brief examination of the stomach showed it to be normal as was the first portion of the duodenum. The gallbladder was somewhat tense and somewhat distended, but she has been n.p.o. for days. There was no palpable stone. Liver had no sign of metastatic lesions. Blunted liver edge, was normal otherwise. Gentle manipulation in the region of the splenic flexure revealed the colon proximally and distally to the dense inflammatory mass was widely patent. There appeared to be a puckered appearance in the surface of the colon highly suggestive of neoplasm. With blunt dissection with all due care in the area of the splenic flexure of the colon, a plane was developed and ultimately entering into a pus pocket draining copious purulent material, this was Gram stain and cultured. Further careful blunt dissection was undertaken freeing the inflammatory process from the retroperitoneum. An area of bleeding was secured with clips as well as 0 silk suture. It became clear that the offending cause of the abscess and the inflammatory process was perforated colon in the region of the left transverse colon, not far from splenic flexure proper. Dense fibrosis of the root of the mesentery was noted. There appeared no sign of pancreatic problems, though the pancreas itself was not fully identified. With further care, the entire transverse colon and splenic flexure could be mobilized out of the abdomen. The viable colon was noted proximally and distally to this dense fibrotic inflammatory mass and resection was deemed most advisable as there was an obvious perforation in the colon Electronically Signed By: POPEYE WOMACK MD 01/19/19 0851 PATIENT NAME: CAPRICE AMADOR OPERATIVE REPORT DATE OF : 55 REPORT #: [id number] PHYSICIAN: POPEYE WOMACK MD PCP: YOKASTA MILLS REPORT IS CONFIDENTIAL AND NOT TO BE RELEASED WITHOUT AUTHORIZATION [facility] [address] [place], [place] [address] Signed itself, although this was a perforated diverticulum or perforated colon cancer was uncertain at that point. The fibrotic mesentery of the left transverse colon was incised with electrocautery and secured with clips as necessary. Similarly, attempts were made to more fully mobilize the splenic flexure of the colon. A dense inflammatory rind between the medial aspect of the spleen and the left-sided mesentery was noted. There appeared not to be any sign of pancreatic neoplasm. The splenic flexure could not be fully mobilized, though attempts were made to do so. It was deemed most advisable to transect the colon in the right transverse portion and in the proximal left colon. This was accomplished with a 75 mm JANIYA stapling device after security of the mesentery itself. The proximal and distal ends of the retained colon appeared viable;a portion of the distal aspect had enough deserosalization so forth that over-sewing the staple line with interrupted 3-0 silk sutures was considered appropriate. The specimen was opened on the back table and found to have a deep ulcerating cause of perforation, possibly and in fact likely related to malignancy, though this was not certain. It may simply be a dense fibrotic process related to perforated diverticulitis. Given the intense inflammatory process in the retroperitoneum, it was deemed unlikely that delayed colocolostomy would be at all easy and on that basis, since there was good mobility of the right transverse colon and viability of the left colon in the region of the splenic flexure, a owvv-ei-patn colocolostomy would be undertaken. This was accomplished precisely in a 2-layer technique with interrupted 3-0 silk suture. Good viability of both proximal and distal ends was noted. Wide patency of the anastomosis was also noted. Under the circumstances of this situation, a protective diverting loop ileostomy was deemed advisable, especially considering the inflammatory cicatrix, drained abscess and uncertainty as to pancreatic fluid drainage potential. An incision was made in the right abdominal wall over what would be the rectus abdominis muscle. The thick abdominal wall pannus obscured the anatomy a fair amount. The ileostomy was made above the level of the umbilicus for ease of use. The antimesenteric fat pad of Treves designating the terminal ileum was identified. Small bowel was marked about 10 inches from that site anticipating pullup through the Electronically Signed By: POPEYE WOMACK MD 01/19/19 0851 PATIENT NAME: CAPRICE AMADOR OPERATIVE REPORT DATE OF : 55 REPORT #: [id number] PHYSICIAN: POPEYE WOMACK MD PCP: YOKASTA MILLS REPORT IS CONFIDENTIAL AND NOT TO BE RELEASED WITHOUT AUTHORIZATION [facility] [address] [place], [place] [address] Signed abdominal wall for diverting loop ileostomy. A circular ostomy site was designated to the right abdomen. Dissection carried through subcutaneous tissue and blunt dissection used. Incision was made in the anterior rectus sheath revealing underlying muscle, longitudinally oriented fibers, therefore consistent with rectus abdominis. The abdomen was entered externally and a [place] clamp was used to grasp the loop of ileum. This was brought through the abdominal wall fully. Irrigation was undertaken more fully. Through a left-sided stab incision, a 7 mm flat Mario drain was placed extending from the splenic hilum medially and posteriorly to the dense fibrotic cavity from perforation. The ileostomy was matured with great effort made to have some projection on the ileostomy despite her abdominal wall obesity. Ileostomy was matured with 3-0 Vicryl suture. Irrigation was undertaken of the abdomen, notably gloves were changed after anastomosis and after ileostomy formation. Note that gloves of all team members were changed after anastomosis and after ileostomy formation. The omentum was replaced over the abdominal contents. The midline fascia was reapproximated with running bidirectional #1 PDS suture. Subcutaneous tissue copiously irrigated with saline solution. Skin was closed with running subcuticular 3-0 Vicryl. Steri-Strips were applied as was a Mepilex silver sponge dressing. Ileostomy appliance was fitted to her abdominal wall. The operation was very prolonged, complicated, and difficult, lasting greater than 4 hours, though was accomplished safely. I believe the underlying etiology will represent malignancy, though the possibility of an inflammatory process otherwise is still considered. Popeye Womack MD JM/MODL /[id number] cc: ARIANA Dempsey Electronically Signed By: POPEYE WOMACK MD 01/19/19 0851 PATIENT NAME: CAPRICE AMADOR OPERATIVE REPORT DATE OF : 55 REPORT #: [id number] PHYSICIAN: POPEYE WOMACK MD PCP: YOKASTA MILLS REPORT IS CONFIDENTIAL AND NOT TO BE RELEASED WITHOUT AUTHORIZATION [facility] [address] [place], [place] [address] Signed MD Nathaniel Verde MD Copies: YOKASTA MILLS CYNTHIA SUE MD WENDLER, SHELDON MD ~ Electronically Signed By: POPEYE WOMACK MD 01/19/19 0851 PATIENT NAME: CAPRICE AMADOR OPERATIVE REPORT DATE OF : 55 REPORT #: [id number] PHYSICIAN: POPEYE WOMACK MD PCP: YOKASTA MILLS REPORT IS CONFIDENTIAL AND NOT TO BE RELEASED WITHOUT AUTHORIZATION
[2019-01-19] MEDS ORDERED: SERTRALINE HCL100 MG PO (09:42)
--- NOTE | 2019-01-19 10:59 | NUR ---
PT RECEIVED FROM CCU. PT ON ROOMA IR, LUNG SOUNDS CLEAR, DENIES SOB. PT WITH GIA DRAIN TO LEFT ABD, DRAINED FOR 55ML OF SEROSANGUINOUS DRAINAGE. PT WITH ILEOSTOMY TO RIGHT ABD, DRAINING SMALL AMOUNT OF SEROSANGUINOUS. MIDLINE INCISION CDI. BOWEL TONES ACTIVE, DENIES NAUSEA, PROVIDED WITH ICE WATER AND CHICKEN BROTH. IV FLUIDS INFUSING D5LR AT 85ML/HR TO LEFT UPPER ARM IV. SCDS TO BLE, MINIMAL EDEMA TO LOWER LEGS. DISCUSSED PLAN OF CARE, PLAN TO WALK BEFORE LUNCH AND THIS AFTERNOON. PT DENIES OTHER NEEDS AT THIS TIME, FAMILY AT BEDSIDE.
--- NOTE | 2019-01-19 11:48 | NUR ---
PT ASSISTED TO WALK IN MIN, PT WALKED FROM 107 TO NURSES STATION AND BACK TO ROOM. PT NOW SITTING IN CHAIR. SHAMPOO SHOWER CAP APPLIED TO HEAD. PT DENIES OTHER NEEDS AT THIS TIME, SPOUSE IN ROOM.
--- NOTE | 2019-01-19 12:33 | NUR ---
SPOKE WITH NURSING STAFF. PATIENT IS INDEPENDENT WITH NO KNOWN BARRIERS TO RETURN HOME AT DISCHARGE AT THIS TIME. CONSULT WILL BE PLACED IF ISSUES ARISE. DEFER ASSESSMENT AT THIS TIME.
--- NOTE | 2019-01-19 15:00 | NUR ---
PT ASSISTED TO WALK IN MIN, PT ABLE TO AMBULATE AROUND SHORT LOOP OF NURSING FLOOR, TOLERATED WELL. PT ASSISTED BACK TO BED. GOWN CHANGED. GIA DRAIN EMPTIED, ILEOSTOMY EMPTIED FOR 200 ML OF GREEN/BROWN STOOL.
--- NOTE | 2019-01-19 15:17 | NUR ---
GIA DRAIN WITH 95 ML OUTPUT AT 1330, 110 ML AT 1430 AND IMMEDIATELY FILLED AFTER SUCTIONING FOR ANOTHER 110ML. DR. WOMACK NOTIFIED, ORDER TO MONITOR FOR PUS, GREEN COLOR, OR BLOOD, OTHERWISE LARGE AMOUNTS OF SEROSANGUINOUS FLUID ARE OKAY. UPDATED ON OUPUT FROM ILEOSTOMY. NO OTHER ORDERS AT THIS TIME.
--- NOTE | 2019-01-19 16:47 | NUR ---
PT REQUESTING PAIN MEDICATION, PT RATING PAIN 7-8/10, GIVEN 4MG IV MORPHINE, DISCUSSED THAT TORADOL WILL BE GIVEN WHEN AVAILABLE. PT DNIES OTHER NEEDS AT THIS TIME.
--- NOTE | 2019-01-19 18:29 | NUR ---
PT REQUESTING PAIN MEDICATION. PT RATING PAIN 7/10, GIVEN IV TORADOL AND PO TYLENOL PER EMAR. PT PROVIDED WITH FRESH WATER, ENCOURAGED CLEAR LIQUID TRAY. PT DENIES OTHER NEEDS AT THIS TIME.
--- NOTE | 2019-01-19 18:30 | NUR ---
PT TX FROM CCU. PT ON ROOM AIR, LUNG SOUNDS CLEAR WITH DIMINISHED BASES, I/S AT BEDSIDE. PT ON CLEAR LIQUID DIET, DENIES NAUSEA, BOWEL TONES ACTIVE. ILEOSTOMY WITH GREEN/BROWN STOOL. GIA DRAIN WITH LARGE AMOUNTS OF SEROSANGUINOUS DRAIANGE. PT WALKED IN MIN TWO TIMES WITH 1PA. D5LR AT 85, IV TORADOL AND MORPHINE, TRY TO AVOID NARCOTICS POSSIBLE. PT WITH GENERALIZED EDEMA, CMS INTACT, SCDS IN PLACE.
--- NOTE | 2019-01-19 19:00 | NUR ---
BEDSIDE REPORT RECEIVED FROM OFFGOING RN. PT RESTING IN BED, PARTICIPATES IN REPORT. ABDOMEN VIEWED WITH OFFGOING RN. MEPILEX AND OPSITE. C/D/I. PT DENIES NEEDS AT THIS TIME. CALL LIGHT IN REACH.
--- NOTE | 2019-01-19 21:20 | NUR ---
PT ASSESSMENT COMPLETE. PT RATING PAIN 8/10 TO ABD. PT DENIES SOB OR NAUSEA. PT DEMONSTRATES APPROPRIATE IS USE WHILE FOUNDATION MAKER IN ROOM. BT'S ACTIVE. ABD TENDER TO TOUCH. MEPILEX AND OPSITE TO MIDLINE, C/D/I. GIA TO LLQ, DRAINING SEROSANGUINEOUS DRAINAGE, DRESSING C/D/I. ILEOSTOMY BAG EMPTIED, BROWN/GREEN LIQ PRESENT IN BAG. EDUCATION PROVIDED THROUGHOUT PROCEDURE. PT STATES UNDERSTANDING. PT HAS GENERALIZED EDEMA IN BUE AND BLE. IV SITES FLUSHED, WNL. PT ICE WATER REFILLED. PT DENIES FURTHER NEEDS AT THIS TIME. CALL LIGHT IN REACH.
--- NOTE | 2019-01-19 21:30 | NUR ---
PT STATES THAT PAIN 8/10, STATES THAT SHE NEEDS SOMETHING TO HELP WITH ABD PAIN. PRN MORPHINE, 2MG, ADMINISTERED. PT DENIES FURTHER NEEDS. CALL LIGHT WITHIN REACH.
--- NOTE | 2019-01-19 21:45 | NUR ---
vitals and I&Os done
--- NOTE | 2019-01-19 22:00 | NUR ---
PT UP AMBULATING IN MIN WITH DAUGHTER AT HER SIDE.
--- NOTE | 2019-01-19 23:00 | NUR ---
PT RATES PAIN 5/10, STATES "IT'S BETTER". PT'S DAUGHTER AT BEDSIDE. STATES THAT SHE IS STAYING THE NIGHT WITH PT. PT'S DAUGHTER ORIENTED TO COUCH, PROVIDED WITH COUCH LINEN PACK. PT AND HER DAUGHTER DENY FURTHER NEEDS AT THIS TIME. CALL LIGHT WITHIN REACH.
--- NOTE | 2019-01-20 01:07 | NUR ---
PT REPORTS INCREASED PAIN TO ABD, RATES 7/10. PRN IBUPROFEN ADMINISTERED. PT EXPRESSED CONCERN THAT AT [facility] DOCTORS AT [facility] TOLD EHR NOT TO TAKE IBUPROFEN BECAUSE SHE HAD TAKEN TOO MUCH. ENSURED PT THAT THIS LAY OUT HELPER SPOKE WITH MD AND HE DID ORDER IBUPROFEN. PT REQUESTS JEMAYAO, PROVIDED JELLO. DENIES FURTHER NEEDS AT THIS TIME. CALL LIGHT WITHIN REACH. PT'S DAUGHTER AT BEDSIDE.
--- NOTE | 2019-01-20 02:40 | NUR ---
PT ASSESSMENT COMPLETE. PT STATES THAT PAIN IS BETTER AFTER IBUPROFEN ADMINISTRATION. BT'S ACTIVE. ABD TENDER TO TOUCH. MEPILEX AND OPSITE TO MIDLINE C/D/I. GIA WITH SEROSANGUINEOUS DRAINAGE. ILEOSTOMY WITH SMALL AMOUNT OF BROWNISH/GREEN DRAINAGE. ECKERT CATH DRAINING CLEAR YELLOW URINE. PT DENIES FURTHER NEEDS AT THIS TIME. PT'S DAUGHTER SLEEPING AT BEDSIDE. CALL LIGHT WITHIN REACH.
--- NOTE | 2019-01-20 07:44 | NUR ---
BEDSIDE HANDOFF REPORT RECEIVED FROM SOLAR ENERGY SYSTEMS DESIGNER RN. PT SLEEPING, LEFT UNDISTURBED, FAMILY AT BEDSIDE.
--- NOTE | 2019-01-20 08:00 | NUR ---
PT SLEEPING, BLOOD GLUCOSE 232. ALLOWING PT TO REST BEFORE MORNING MEDICATIONS. FAMILY AT BEDSIDE.
--- NOTE | 2019-01-20 09:00 | NUR ---
PT RESTING IN BED. PT ON ROOM AIR, LUNG SOUNDS CLEAR. PT WITH PAIN 7/10 TO ABD. PT BG 232, GIVEN 5 UNITS SS HUMULIN R. PT HR IN LOW 50'S, COREG HELD. ABD WITH MIDLINE INCISION, CDI, GIA DRAIN TO LEFT SIDE WITH SEROSANGUINOUS DRAIANGE. ILEOSTOMY APPLIANCE TO RIGHT ABD WITH LEAK ON RIGHT LATERAL PORTION OF WAFFER, APPLIANCE CHANGED, EDUCATION PROVIDED. PT WITH EDEMA TO BUE, AND FEET, SLIGHTLY IMPROVED FROM YESTERDAY. IV FLUIDS INFUSING D5LR AT 85 ML/HR, IV MERREM INFUSING. ECKERT CATH WITH QS URINE. DISCUSSED PLAN OF CARE FOR THE DAY. PT DNEIS OTHER NEEDS AT THSI TIME.
--- NOTE | 2019-01-20 10:30 | NUR ---
OSTOMY APPLIANCE WITH LEAK, CHANGED TO NEW APPLIANCE, WITH APPLIANCE PASTE TO HELP BINDING TO CONCAVE SKIN ON RIGHT LATERAL PORTION OF WAFFER. WILL MONITOR FOR LEAKING. PT WITH INCREASED PAIN, RATING PAIN 8/10, GIVEN MOTRIN AND MORPHINE PER EMAR. PLAN FOR WALK IN 30-45 MINUTES, PT AGREEABLE. PT DENIES OTHER NEEDS AT THIS TIME.
--- NOTE | 2019-01-20 10:39 | NUR ---
DR. WOMACK CALLED AND NOTIFIED OF PT HYPERTENSION AND HELD COREG THIS AM, ORDER TO CONTINUE TO HOLD COREG AND TO CONTINUE TO MONITOR BP.
--- NOTE | 2019-01-20 11:05 | NUR ---
PT WALKING INHALL WTH NURSE AIDE.
--- NOTE | 2019-01-20 13:39 | NUR ---
ILEOSTOMY APPLIANCE WITH LEAK, APPLIANCE CHANGED.
--- NOTE | 2019-01-20 14:45 | NUR ---
PT BLOOD GLUCOSE 237, GIVEN 5 UNITS SS HUMULIN R. PT RATING PAIN 5/10, GIVEN TYLENOL PO. ILEOSTOMY APPLIANCE ASSESSED, NO SIGN OF LEAK AT THIS TIME. PT SLOWLY EATING CREAM OF CHICKEN SOUP. FAMILY AT BEDSIDE. PT DENIES OTHER NEEDS AT THIS TIME
--- NOTE | 2019-01-20 16:00 | NUR ---
ECKERT DISCONTINUED PER ORDER. PT ASSISTED TO WALK IN MIN WITHNURSE AIDE
--- NOTE | 2019-01-20 17:46 | NUR ---
GIA DRAIN TUBE SECURED PER ORDER. ILEOSTOMY EMPTIED, WAFFER INTACT, NO SIGNS OF LEAK. PT WORKING ON EATING DINNER. PT DENIES OTHER NEEDS AT THIS TIME.
--- NOTE | 2019-01-20 17:48 | NUR ---
DIFFICULTY WITH OSTOMY APPLIANCE THIS AM ,FREQUENT CHANGES FOR LEAKING, RESOLVED NOW. PT ON ROOM AIR, LUNG SOUNDS CLEAR. PT ADVANCED TO TO FULL LIQUID DIET, SLOW INTAKE. BOWEL TONES ACTIVE, ILEOSTOMY WITH OUTPUT AND FLATUS. PT AMBULATED IN JOSH MIN. ILINE INCISION CDI. GIA DRAIN TO LEFT SIDE WITH SEROSANGUINOUS DRAINAGE, TUBING SECURED WITH OPSITE. EDEMA IMPROVING. ECKERT CATH REMOVED, DUE TO VOID BY 2200.
--- NOTE | 2019-01-20 19:00 | NUR ---
BEDSIDE REPORT RECEIVED FROM OFFGOING RNGERRY. PT RESTING IN BED WITH HER AT BEDSIDE. PT ABLE TO PARTICIPATE IN REPORT. DENIES FURTHER NEEDS AT THIS TIME. CALL LIGHT IN REACH.
--- NOTE | 2019-01-20 21:30 | NUR ---
PT ASSESSMENT COMPLETE. PT RATES PAIN 7-8/10 TO ABD. PRN TYLENOL AND MOTRIN ADMINISTERED. EDUCATION REGARDING MEDCIATION AVAILABILITY PROVIDED. PT STATES UNDERSTANDING. PT DENIES NAUSEA OR SOB. CONTINUOUS PULSE OX IN PLACE, SA02 96% ON RA. BT'S ACTIVE. ABD TENDER TO PALPATION. MEPILEX AND OPSITE C/D/I. GIA DRAIN TO LLQ, OPSITE COVERING GIA. GIA DRAINING SEROSANGUINEOUS FLUID. ILEOSTOMY APPLIANCE INTACT. ILEOSTOMOY DRAINING BROWN LIQUID. GENERALIZED EDEMA IN BUE AND BLE CONTINUES. PT UP TO BATHROOM AND BACK TO BED WITH SBA, TOLERATED WELL. PT DENIES FURTHER NEEDS AT THIS TIME. CALL LIGHT IN REACH.
--- NOTE | 2019-01-20 21:56 | NUR ---
SBA PT TO TOILET, TOOK VITALS/I&Os
--- NOTE | 2019-01-20 22:30 | NUR ---
PT RESTING IN BED WITH EYES CLOSED. DOES NOT WAKE WHILE SOUND TRUCK OPERATOR IN ROOM. PT APPEARS TO BE SLEEPING. CALL LIGHT IN REACH. PT'S ASLEEP ON COUCH.
--- NOTE | 2019-01-20 23:45 | NUR ---
PT UP TO USE THE BATHROOM AND BACK TO BED WITH SBA. PT TOLERATED WELL. PT DENIES FURTHER NEEDS AT THIS TIME. CALL LIGHT IN REACH. PT'S SLEEPING AT BEDSIDE.
--- NOTE | 2019-01-21 02:30 | NUR ---
PT ASSESSMENT COMPLETE. PT STATES THAT PAIN IS WELL CONTROLLED WHILE SHE IS LAYING STILL. PT DENIES NAUSEA AND SOB. ASSESSMENT UNCHANGED FROM PREVIOUS. PT UP TO BR AND BACK TO BED WITH POLISHING MACHINE TENDER ASSISTANCE. PT'S SITTING UP IN CHAIR AT BEDSIDE. PT DENIES FURTHER NEEDS FROM THIS DRILL SHARPENER. POLISHING MACHINE TENDER REMAINS IN ROOM.
--- NOTE | 2019-01-21 05:18 | NUR ---
PT UP TO THE BATHROOM AND BACK TO BED WITH 1 PA. PT TOLERATES WELL, REQUESTS PRN TYLENOL AND IBUPROFEN. PT DENIES FURTHER NEEDS AT THIS TIME. AT BEDSIDE, CALL LIGHT IN REACH.
--- NOTE | 2019-01-21 08:30 | NUR ---
PATIENT UP TO BATHROOM, THEN TO CHAIR. BP ELEVATED. PATIENT REPORTS PAIN 8/10 ON PAIN SCALE. PATIENT REQUESTING MORPHINE IV. PROVIDED WITH MORNING MEDICAITONS. FULL BODY ASSESMENT DONE.
--- NOTE | 2019-01-21 09:05 | NUR ---
PATIENT UP TO BATHROOM, BACK TO BED, ADMINISTERED 4MG IV MORPHINE FOR PAIN. RATES PAIN 8/10 ON PAIN SCALE. ASSISTING WITH TRANSFERING PATIENT.
--- NOTE | 2019-01-21 12:02 | NUR ---
CNA2 BONNY GAVE PATIENT A BEDBATH
--- NOTE | 2019-01-21 13:00 | NUR ---
PATIENT REQUESTING PAIN MEDICATION. UP IN HALLS AMBULATING, APPEARS TO BE TOLERTAING WELL.
--- NOTE | 2019-01-21 15:16 | NUR ---
PATIENT UP AMBULATING IN HALLS, RATES PAIN 7/10 ON PAIN SCALE. REPORTS TYLENOL AND IBUPROFEN NOT EFFECTIVE CONTROLLING PAIN. DRESSING INTACT. GIA DRAINING WELL. ILEOSTOMY PRODUING LIQUID STOOL. ENCOURAGED PATIENT TO PROVIDE MAINTANENCE TO OSTOMY, APPEARS UNINTERESTED AT THIS TIME.
--- NOTE | 2019-01-21 16:32 | NUR ---
TODAY AROUND 1130 THIS MORNING I GAVE PATIENT A BED BATH ALSO WASHED HER HAIR AND PUT IT UP IN HER HAIR TIE. CHANGED HER GOWN.
--- NOTE | 2019-01-21 17:33 | NUR ---
PT CALLED RN INTO ROOM THINKING HER OSTOMY WAS LEAKING. RN ASSESSED OSTOMY, IT WAS LEAKING OUT THE CORNER OF THE WAFER, UNDER THE MEPLEX, ONTO THE STERI-STRIPS AND POOLING IN THE BELLY BUTTON. RN TOOK DOWN THE OPSITE, MEPLEX, AFFECTED STERI-STRIPS, CLEANED SKIN, CLEANED WITH CLORAHEXIDINE SPONGE AND ALLOWED TO AIR DRY. REAPPLIED STERI-STRIPS, MEPLIX AND OPSITE. CHANGED WAFFER AND BAG. RN WALKED PT THOUGH THE STEPS OF CHANGING WAFER AND PT WATCHED THE PROCESS. SHE WAS RECEPTIVE TO WATCHING THE PROCESS AND ASKED QUESTIONS ABOUT THE STOMA. PT STATED SHE WILL CONTINUE TO WORK WITH THE OSTOMY. PT AGREED TO GO FOR ANOTHER WALK AFTER DINNER.
--- NOTE | 2019-01-21 18:32 | NUR ---
PT HAS BEEN UP WALKING IN HALLS SEVERAL TIMES THIS AFTERNOON. WAFER CHANGED DUE TO LEAKING. MEPLEX AND OPSITE OVER MIDLINE INCISION REPLACED DUE TO SOILAGE. INCISION IS C/D/I. NO S/SX OF INFECTION. PT IS SLOWING ADJUSTING TO OSTOMY, ASKING QUESTION RECEPTIVE TO TEACHING. DIET ADVANCED. TOLERATING WELL.
--- NOTE | 2019-01-21 19:00 | NUR ---
RECEIVED REPORT FROM RODGER ADDISON. pt RESTING IN BED. OSTOMY BAG INTACT, NO LEAKING NOTED. REPORTED PAIN "IS ABOUT TIME TO TAKE SOME MORE MEDICATION." PLAN MADE TO RETURNED IN ABOUT HALF AN HOUR WITH PAIN MEDICATION, pt AGREEABLE. CALL LIGHT WITHIN REACH.
--- NOTE | 2019-01-21 19:00 | NUR ---
CHARGE NURSE REPORT RECEIVED. PT IN BED, NO NEEDS.
--- NOTE | 2019-01-21 20:39 | NUR ---
pt UP TO TOILET. REPORTED PAIN 4/10, PRN GIVEN WITH SCHEDULED MEDICATIONS (SEE MAR). IV IN WRIST DC'D PER PROTOCOL. pt INDEPENDENT UP TO VOID. WALKING IN MIN WITH STITCH SEPARATOR.
--- NOTE | 2019-01-21 20:48 | NUR ---
ACCOMPANIED PATIENT AMBULATE AROUND HALLWAY X1. PATIENT IS BACK IN BED. CALL LIGHT IN REACH.
--- NOTE | 2019-01-21 22:39 | NUR ---
ROUNDED ON pt. REPORTED 4/10 PAIN "IT'S OKAY." EMPTIED URINE HAT. NO FURTHER REQUESTS AT THIS TIME CALL LIGHT WITHIN REACH.
--- NOTE | 2019-01-22 01:15 | NUR ---
ROUNDED ON pt. AWAKE, REPORTED 5/10 PAIN. EDUCATED ON NEXT AVAILABLE MEDICATION. WILL CONTINUE TO MONITOR.
--- NOTE | 2019-01-22 01:45 | NUR ---
PRN MEDICATION ADMINISTERED FOR 5/10 PAIN. SCHEDULED ABX INFUSING (SEE MAR). pt AMBULATED TO TOILET. OSTOMY BAG EMPTIED. GIA DRAIN EMPTIED, SEROUS FLUID. ACCU CHECK COMPLETE. WATER PROVIDED. pt RESTING IN BED. NO FURTHER REQUESTS AT THIS TIME. CALL LIGHT WITHIN REACH.
--- NOTE | 2019-01-22 04:01 | NUR ---
ROUNDED ON pt. RESTING WITH EYES CLOSED, RESPIRATIONS REGULAR AND UNLABORED. CALL LIGHT WITHIN REACH.
--- NOTE | 2019-01-22 06:03 | NUR ---
pt RESTED ON AND OFF DURING SHIFT. PAIN MOSTLY CONTROLLED WITH PRN MEDS. ACCUCHECK Q6H. SBA. OSTOMY (RIGHT SIDE) CARE AND EDUCATION. GIA DRAIN LEFT SIDE, SMALL AMOUNT OF SEROUS OUTPUT. TOLERATING 60GM CARB DIET. IVF INFUSING. URINE OUTPUT HIGH. MIDLINE DRESSING IN PLACE. USES CALL LIGHT APPROPRIATELY.
--- NOTE | 2019-01-22 06:28 | NUR ---
pt UP TO TOILET TO VOID AND BACK TO BED. VITALS AND I&O RECORDED. pt REPORTED 3/10 PAIN PRN GIVEN (SEE MAR). WATER PROVIDED. NO FURTHER REQUESTS AT THIS TIME. CALL LIGHT WITHIN REACH.
--- NOTE | 2019-01-22 07:13 | NUR ---
RECIEVED BEDSIDE REPORT FROM RODGER HIGGINS. PT IS SLEEPING SOUNDLY. VOIDING COPIOUS AMOUNTS, OVER 3,000ML OUTPUT. BLOOD SUGAR IN GOOD CONTROL WITH BREAK IN FLUIDS. WAFER HELD.
--- NOTE | 2019-01-22 07:59 | NUR ---
REPLACED WAFER DUE TO LEAKAGE. PT TOLERATED WELL. VOIDED.
--- NOTE | 2019-01-22 11:19 | NUR ---
PT SLEEPING, IN RM. WILL CHECK BACK
--- NOTE | 2019-01-22 19:00 | NUR ---
BEDSIDE REPORT RECEIVED FROM OFFGOING RN. PT RESTING IN BED, PARTICIPATES IN REPORT. DENIES NEEDS AT THIS TIME. CALL LIGHT IN REACH.
--- NOTE | 2019-01-22 19:33 | NUR ---
CHARGE NURSE REPORT RECEIVED. PT IN BED, NO NEEDS
--- NOTE | 2019-01-22 22:05 | NUR ---
PT ASSESSMENT COMPLETE. PT REQUESTS TYLENOL AND IBUPROFEN FOR ABDOMINAL PAIN. LUNG SOUNDS DIM IN BILATERAL BASES. BT'S ACTIVE. ABD TENDER TO PALPATION. MIDLINE INCISION MICHELE WITH STERISTRIPS PRESENT. INCISION REDDENED, WELL APPROXIMATED. GIA DRAIN WITH SEROUS FLUID PRESENT. OPSITE OVER GIA TUBING INTACT. ILEOSTOMY DRAINING BROWN LIQUID. CLINICAL SOCIAL WORKER DISCUSSES WITH PT RE: NEW ILEOSTOMY. PT AGREES THIS IS A LARGE CHANGE, NOT WHAT SHE WAS EXPECTING. PT BECOMES TEARFUL. PT EDUCATION PROVIDED REGARDING TIMELINE FOR REVERSAL. PT AGREES. PT DENIES FURTHER NEEDS AT THIS TIME. CALL LIGHT IN REACH.
--- NOTE | 2019-01-23 00:28 | NUR ---
PT RESTING IN BD WITH EYES CLOSED. DOES NOT WAKE WHEN PERSHING MISSILE CREWMEMBER IN DOORWAY. RESPIRATIONS EVEN AND UNLABORED. PT APPEARS TO BE SLEEPING. CALL LIGHT IN REACH.
--- NOTE | 2019-01-23 01:55 | NUR ---
PT UTILIZES CALL LIGHT FOR ILEOSTOMY LEAKING. APPLIANCE CHANGED AT THIS TIME. PT ASSESSMENT COMPLETE. PT DENIES PAIN, NAUSEA, OR SOB. LUNG SOUNDS DIM IN BILATERAL BASES. BT'S ACTIVE. ABD TENDER TO PALPATION. MIDLINE STAFFING RN WITH STERISTRIPS, UNCHANGED FROM PREVIOUS. GIA DRAIN WITH SEROUS FLUID PRESENT IN BULB. DRESSING TO GIA C/D/I. GENERALIZED EDEMA CONTINUES. PT DENIES FURTHER NEEDS AT THIS TIME. CALL LIGHT IN REACH.
--- NOTE | 2019-01-23 08:00 | NUR ---
SPENT AN HOUR PLACING OSTOMY APPLIANCE TO STOMA SITE. PATIENT SKIN APPEARS RED, AND IRRITATED. PATIENT REPORTS DISCOMFORT. STOMA PRODUCING BROWN/GREEN FLUID, STOMA IS RED AND FLESHY. PATIENT APPEARS TO BE INTERESTED IN CARE. GOOD SEAL TO SITE, PATIENT REPORTS FEELING NAUSEA, AND UNINTERESTED IN BREAKFAST. HOLD [address] FOX NOTIFIED.
--- NOTE | 2019-01-23 10:00 | NUR ---
FULL BODY ASSESMENT DONE, MORNING MEDICAITONS ADMINISTERED. PROVIDED WARM BLANKET AND ICE WATER. AT BEDSIDE. NO OTHER NEEDS AT THIS TIME.
--- NOTE | 2019-01-23 11:30 | NUR ---
SPOKE WITH PATIENT IN ROOM REGARDING POSSIBLE OUTPATIENT OSTOMY CARE AT [facility] AT [facility] AFTER DISCHARGE. DISCUSSED THAT DR WOMACK SUGGESTED THIS TO ME AND WE CAN ARRANGE THAT IF SHE IS INTERESTED. SHE STATES SHE WOULD VERY MUCH LIKE TO DO THIS, SHE STATES SHE HAS TRANSPORTATION AND WOULD BE ABLE TO COME IN FOR THIS. SHE STATES SHE IS STILL FEELING "LITTLE NERVOUS" ABOUT DOING HER OWN OSTOMY CARE AT HOME. SHE STATES THE NURSES ARE "HELPING ME LEARN MORE". SUGGESTED SHE HAVE HER COME IN TO WORK WITH HER ON HOW TO CARE FOR IT, SHE STATES SHE WILL ASK HIM, SHE FEELS HE WOULD BE WILLING TO DO THIS. WE DISCUSSED GENERAL OSTOMY ISSUES, QUESTIONS ANSWERED. WILL CONTINUE TO FOLLOW.
--- NOTE | 2019-01-23 12:20 | NUR ---
PT SITTING UP IN BED, TV ON AND LUNCH IN FRONT OF HER. SHE MENTIONED THAT SHE IS FEELING SO MUCH BETTER-MAYBE DC TOMORROW IF SHE CAN KEEP SOLID FOOD DOWN. PTS' TRA HAD JUST RETURNED WITH HIS LUNCH. PT LOOKING FORWARD TO BEING HOME. SHE REQUESTED PRAYER,WILL FOLLOW NEEDED
--- NOTE | 2019-01-23 13:00 | NUR ---
PATIENT UP AMBUALTING IN HALLS X2 TODAY. PATIENT HAD BENT OVER IN BATHROOM UPON RETURNING TO ROOM AND APPLIANCE STARTED TO LEAK FROM SIDE. PATIENT CALLED FOR ASSISTANCE SPENT 45 MIN ATTEMPTING TO SECURE NEW DEVICE, UNSUCCESFUL. PATIENT BACK TO BED, ANOTHER NURSE TO ROOM TO ATTEMPT GOOD SEAL WITH APPLIANCE.
--- NOTE | 2019-01-23 14:02 | NUR ---
ILEOSTOMY WITH LEAK TO LATERAL SIDE. OSTOMY APPLIANCE CHANGED. GOWN CHANGED.
--- NOTE | 2019-01-23 15:24 | NUR ---
VERBAL REPORT TO GERRY SOARES TO ASSUME CARE.
--- NOTE | 2019-01-23 18:00 | NUR ---
IELOSTOMY APPLIANCE LEAKING, DISCUSSED WITH CORNELIA IN DS, SUGGESTED OSTOMY POWDER OR JOELLE RING, OSTOMY POWDER NOT AVAILABLE BUT EAKING RING AVAILABLE. OSTOMY APPLIANCE EMOVED, REDDENED AREA TO SURROUNDING SKIN OF STOMA FROM 6 TO 9 O'CLOCK, SKIN CLEANSED AND DRIED, SKIN BARRIER SPRAY APPLIED, JOELLE RING AND APPLIANCE APPLIED. WILL CONTINUE TO MONITOR FOR LEAKING.
--- NOTE | 2019-01-23 18:26 | NUR ---
PT ONROOM AIR. PT WITH DECREASED EDEMA. ILEOSTOMY WITH FREQUENT LEAKS, DISCUSSED WITH CORNELIA IN DS, RECOMMENDED JOELLE RING TO HELP WITH SEAL, APPLIED. PT UP WITH SBA. PAIN CONTROLLED WITH TYLENOL AND MORTIN. TOLERATING REGULAR DIET. VOIDING QS.
--- NOTE | 2019-01-23 20:05 | NUR ---
REPORT RECEIVED FROM DAY SHIFT RN. PT LYING IN BED, ALERT AND ORIENTED. DENIES PAIN. OSTOMY APPLIANCE NOTED TO BE LEAKING, WILL CHANGE APPLIANCE. NO OTHER REQUESTS AT THIS TIME. CALL LIGHT IN REACH.
--- NOTE | 2019-01-23 21:50 | NUR ---
EVENING MEDS GIVEN WITHOUT ISSUE. MEDICATED PT WITH PRN IBUPROFEN AND TYLENOL FOR 7/ COLOSTOMY/INCISIONAL PAIN AFTER APPLIANCE CHANGE. ASSESSMENT COMPLETE. MIDLINE ABD INCISION CDI. GIA DRAIN EMPTIED FOR 5 ML CLEAR FLUID. PT AMB TO BR TO VOID INDEPENDENTLY. SS INSULIN GIVEN PER ORDER. I & O, AND VS COMPLETE. NO OTHER REQUESTS AT THIS TIME.
--- NOTE | 2019-01-23 22:30 | NUR ---
PATIENTS ILESTOMY APPLIANCE IS NO LONGER STAYING IN PLACE AND IS LEAKING. APPLIANCE REMOVED. PASTE, JOELLE, AND LOWER RING REPLACED AFTER STOMA SITE CARE COMPLETED. PATIENT TOLERATED ACTIVITY WELL. ERMIAS SOARES IS PRESENT IN THE ROOM.
--- NOTE | 2019-01-24 00:46 | NUR ---
PATIENT CALLED AND NOTIFIED STAFF THAT HER "BAG WAS LEAKING". PATIENTS ILEOSTOMY BAG CHANGED AND REPOSITONED TO HOPEFULLY NO LEAK. PATIENT DENIES ANY NEEDS. CALL LIGHT IN REACH.
--- NOTE | 2019-01-24 01:32 | NUR ---
PATIENT CALLED AND BAG IS LEAKING AGAIN. PATIENTS BAG LEF TIN PLACE HER SKING HAS BECOME VERY IRRITATED AND RED FROM CHANGING. REINFORCED WITH BARRIER CREAM, GAUZE AND SILK TAPE. PATIENT DENIES ANY FURTHER NEEDS. CALL LIGHT IN REACH.
--- NOTE | 2019-01-24 03:09 | NUR ---
PT LYING IN BED RESTING WITH EYES CLOSED, RR EVEN AND UNLABORED. CALL LIGHT IN REACH.
--- NOTE | 2019-01-24 04:42 | NUR ---
call light answered. pt requesting prn pain medication for 6/10 "burning" abd pain. pt denies nausea. no other requests at this time. call light in reach.
--- NOTE | 2019-01-24 04:47 | NUR ---
PATIENT IS RESTING IN BED. PATIENTS GAUZE AND SILK TAPE CHANGED AROUND ILEOSTOMY. PATIENTS STOMA IS PINK AND MOIST. ERMIAS RN PRESENT IN ROOM. NO FURTHER NEEDS NOTED. CALL LIGHT IN REACH.
--- NOTE | 2019-01-24 08:37 | NUR ---
LE 0700: MS RN CALLS DOWN REQUESTING HELP WITH ILEOSTOMY POUCH AND PLACEMENT. IT HAS CONTINUED TO LEAK AFTER TRYING TIPS GIVEN YESTERDAY VIA PHONE. LE 0730: THE PT'S ILEOSTOMY SITE IS ASSESSED PRIOR TO REMOVING THE OLD APPLIANCE. THERE IS ABD PADS AND SILK TAPE ON THE ABDOMEN/SIDE OF CHEST BELOW THE POUCH APPLIANCE TO COLLECT DRAINAGE. AFTER REMOVING THE ABD PADS THERE IS SOILED GAUZE AND STERI STRIPS, THAT ARE ALSO REMOVED. THERE IS A SIGNIFICANT AMOUNT OF PASTE ON THE PT'S SKIN, THIS NEEDS TO BE REMOVED TO WORK WITH A FRESH, FLAT SURFACE. THE PT'S SKIN IS INCREDIBLE RED, RAW, AND PAINFUL. SHE TOLERATES THE REMOVAL OF THE PASTE WELL, SHE IS EDUCATED TO LET STAFF KNOW IF SHE NEEDS A BREAK, SHE VERBALIZES UNDERSTANDING. A COOL SALINE SOAKED GAUZE IS APPLIED TO THE SKIN TO PROVIDE SOME RELIEF AND COLLECT DRAINAGE. ANOTHER SALINE SOAKED GUAZE IS USED TO CLEAN THE SKIN SURFACE TO GET ANY RESIDUCE FROM ADHESIVE REMOVER OFF. THE AREA IS PATTED DRY WITH A DRY WASHCLOTH. SKIN PREP IS GENEROUSLY APPLIED TO THE SURROUNDING PERIWOUND SKIN. A STENCIL IS USED TO CREATE SHAPE ON OSTOMY RING. [facility] SN CUTS THE APPLIANCE TO THE CORRECT SIZE. COLOPLAST IS USED TO CREATE A "DAM" AROUND THE STOMA AND FILL IN THE CONCAVE OF THE SKIN AT 7-8 O'CLOCK. THE POUCH IS APPLIED TO THE RING PRIOR TO ADHERING IT TO THE SKIN. THIS RN HAS THE PT STAND UP TO APPLY THE ILEOSTOMY APPLIANCE TO THE SKIN. GENTLY PRESSURE IS USED TO PRESSURE DOWN THE RING TO MAKE IT STICK TO THE PT'S SKIN. SHE TOLERATES THIS PRESSURE WELL. ONCE THE APPLIANCE IS FULL ADHERED, THE PT IS ASKED TO SIT DOWN AND THE SITE IS ASSESSED, THE EDGE OF THE DRESSING SLIGHTLY POPS UP AT 1 AND 3 O'CLOCK BUT IS EASILY FLATTENED BACK OUT ON THE SKIN. SHE IS ALSO ASKED TO LAY DOWN AND THE SITE IS ASSESSED AGAIN, WITH NO ISSUES. SHE AND THE MS RN ARE EDUCATED ON THINGS THEY CAN DO IF THE EDGE OF THE DRESSING COMES UP AND TO CALL IF THEY HAVE ANY MORE QUESTIONS OR CONCERNS. WILL CALL LATER TODAY TO CHECK AND SEE HOW PT'S APPLIANCE IS DOING.
--- NOTE | 2019-01-24 08:45 | NUR ---
PT ILEOSTOMY LEAKING, CORNELIA SOARES FROM TO ROOM TO ASSIST WITH ILEOSTOMY. SKIN CLEANSED, OSTOMY PASTE REMOVED WITH ADHESIVE REMOVED, SKIN BARRIER APPLIED, COLOPLAST APPLIED AROUND STOMA AND TO CONCAVE SECTION OF SKIN, OSTOMY APPLIANCE APPLIED. PT ON ROOM AIR, LUNG SOUNDS CLEAR WITH DIMINISHED BASES. PT DENIES NAUSEA, BOWEL TONES ACTIVE. PT WITH DECREASED EDEMA, TRACE IN BLE. IV TO LEFT UPPER ARM FLUSHED, PATENT. MIDLINE INCISION WIHT STERISTRIPS IN PLACE, EDGES WELL APPROXIMATED, WITHOUT REDNESS OR DRAINAGE. GIA TO LEFT ABD WITH SEROUS FLUID. PT ENCOURAGED TO SIT AND CHAIR AND WALK IN MIN. DISCUSSED PLAN OF CARE FOR THE DAY.
--- NOTE | 2019-01-24 10:48 | NUR ---
PT SITTING U IN BED, TRA RESTING PT RESTING IN BED WITH TV ON AND TRA RESTING ON COUCH. NEITHER SEEMED TO SLEEP WELL LAST NIGHT. ILIOSTMY BAG CONTINUED TO LEAK. CHANGED AND IT SEEMS BETTER NOW. PT HOPES TO BE DC'S LATER TODAY. EXTENDED A BLESSING,WILL FOLLOW NEEDED ON COUCH.
--- NOTE | 2019-01-24 13:37 | NUR ---
PT SITTING UP IN BED, TV ON. SHE SAID THE NIGHT WAS ALITTLE ROUGH-TROUBLE WITH HER ILEOSTOMY BAG LEAKING. PT FEELS THINGS ARE BETTER, HOPING TO GO HOME TOMORROW. EXTENDED A BLESSING, WILL FOLLOW NEEDED
--- NOTE | 2019-01-24 13:49 | NUR ---
PATIENT IN BED WATCHING TV. FRESH WATER GIVEN. CALL LIGHT IN REACH. NO FURTHER NEEDS AT THIS TIME.
--- NOTE | 2019-01-24 15:02 | PATH ---
[facility] [address] [place], [place] [address] Signed SPECIMEN(S): A SPLENIC COLON SPECIMEN(S): B RETROPERITONEAL TISSUE SPECIMEN SOURCE: A. SPLENIC COLON B. RETROPERITONEAL TISSUE CLINICAL HISTORY: Abscess of LUQ of Abd., poss ruptured diverticulitis, poss tumor of colon. FINAL PATHOLOGIC DIAGNOSIS: A. 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 - Tumor size: 6.2 x 4.2 x 4.2 cm. - Macroscopic tumor perforation: Present. - Histologic tumor type: Mucinous carcinoma. - Histologic grade: Moderately differentiated (grade 2 of 4). - Microscopic tumor extension: Penetrates to surface at visceral peritoneum. - Surgical margins: - Proximal and distal resection margins free of neoplasm. - Neoplasm penetrates to radial margin. - Lymphovascular invasion: Absent. - Perineural invasion: Absent. - Continuous extramural extension: Absent. - Type of polyp in which invasive carcinoma arose: Not identified. - Lymph nodes: Four identified, all negative for metastatic neoplasm. - AJCC: pT4a pN0. - Microsatellite instability testing by immunohistochemistry: - MLH1: Loss of nuclear expression. - MSH2: Intact nuclear expression. - MSH6: Intact nuclear expression. - PMS2: Loss of nuclear expression. - INTERPRETATION: Suggestive of MLH1 mutation. COMMENT: Tumor cells show loss of nuclear expression for both MLH1 and PMS2, suggestive of a mutation or promoter methylation of the MLH1 gene. Testing for methylation of the MLH1 promoter and/or mutation of PATIENT NAME: CAPRICE AMADOR PATHOLOGY DATE OF : 55 REPORT #: [id number] PHYSICIAN: [employer] [facility] PCP: YOKASTA MILLS REPORT IS CONFIDENTIAL AND NOT TO BE RELEASED WITHOUT AUTHORIZATION [facility] [address], [place] [address] Signed BRAF is indicated. The presence of a BRAF V600E mutation and/or MLH1 methylation would suggest sporadic colorectal carcinoma. Absence of both MLH1 methylation and BRAF V600E mutation would suggest Marion syndrome (hereditary non-polyposis colorectal carcinoma syndrome). Clinical correlation with appropriate genetic counseling is recommended to assess the need for further testing in this patient. B. Retroperitoneal tissue, excision: - Focal hemorrhage and fibrosis. - Negative for malignancy. BRAF testing may not be indicated in the absence of metastatic disease and has not been ordered. If testing is desired, please contact [facility] with prior authorization if applicable. As part of [facility] [employer]' Quality Improvement Program, this case was reviewed by another member of our pathology staff. Results called to Dr. Poe's office ([facility]) 01/24/19 1:45 PM. CHARI:NRT:cml:C1NR MICROSCOPIC EXAMINATION: Histologic sections of all submitted blocks are examined by light microscopy. These findings, together with the gross examination, support the pathologic diagnosis. A panel of four antibodies is selected which will detect 95% of microsatellite unstable carcinomas. Testing is performed at the request of Jorge Porras M.D. Block: A7. Recut HE slide is prepared from the block. The presence of neoplastic glands and non-neoplastic internal control glands or stroma is confirmed. Internal control cells for MLH1, MSH2, PMS2 and MSH6 are positive. Neoplastic gland cells show the following: - MLH1: Negative. - MSH2: Positive. - MSH6: Positive. - PMS2: Negative. Technical testing is performed at [facility], [place], [place]. LJA:cml GROSS DESCRIPTION: Two specimens are received in two containers, labeled "RC." A. The specimen, labeled "RC, splenic colon and perforation ," is received in formalin and consists of one piece of large bowel that measure 8.5 cm in length PATIENT NAME: CAPRICE AMADOR PATHOLOGY DATE OF : 55 REPORT #: [id number] PHYSICIAN: [facility] PATHOLOGY PCP: YOKASTA MILLS REPORT IS CONFIDENTIAL AND NOT TO BE RELEASED WITHOUT AUTHORIZATION [facility] [address], [place] [address] Signed and 6.5 cm in inner circumference. One end of the bowel shows black stitch that is undesignated. The serosal surface is pink-graves, indurated and puckering. The bowel shows attached fibroadipose tissue that is dark red, partially covered with yellow-graves, adherent, plaque-like material. There is an area of fibroadipose tissue that is easy friable. That area is probe patent to the lumen of the colon. That area is inked black. The serosal surface is inked blue. One side of the colon shows attached yellow-graves piece of omentum that measure 13 x 11.2 x 0.2 cm. The omentum shows signs of induration on the one area of attachment to the bowel that measure 1.5 x 1.2 cm. Opening of the specimen shows morrison-pink, fungated mass that is necrotic and ulcerated in the middle. The mass measure 6.2 x 4.2 x 4.2 cm. The mass is 3.5 cm from the margin marked with a black stitch and 1.3 cm from the opposite margin. Sectioning through the mass reveal morrison-graves, friable tissue. The mass extended to the area of previously described friable adipose tissue. Extended to the adipose surface is grossly visible. Mass abuts serosa in area of previously described induration and puckering. Crossing to the surface of the serosa is not grossly visible. Sectioning through the pericolonic fat reveals 13 possible lymph nodes that range in size from 0.5-1.2 cm in greatest dimension. Sectioning through the omentum is unremarkable. No abnormalities are grossly identified. Still [employer] Brandy sections submitted in 14 cassettes. Cassette summary: (A1) margin, shave, closest to the black stitch (A2) opposite margin, shave (A3-A4) mass to omentum attachment (A5) mass deepest extension to adipose friable tissue (A6) mass to serosal surface (A7-A8) mass to uninvolved bowel wall (A9) mass, additional section (A10) omentum, random section (A11) five possible lymph nodes (A12) two possible lymph nodes (A13) four possible lymph nodes (A14) two possible lymph nodes B. The specimen, labeled "RC, retroperitoneal tissue," is received in formalin and consists of one piece of brown-graves, irregular shaped tissue that measure 1.0 x 0.7 x 0.3 cm. Specimen is sectioned. PATIENT NAME: CAPRICE AMADOR PATHOLOGY DATE OF : 55 REPORT #: [id number] PHYSICIAN: [employer] [facility] PCP: YOKASTA MILLS REPORT IS CONFIDENTIAL AND NOT TO BE RELEASED WITHOUT AUTHORIZATION [facility] [address], [place] [address] Signed Specimen is entirely submitted in cassette (B1). JS (under the direct supervision of a pathologist) The Gross Description was prepared using a voice recognition system. The report was reviewed for accuracy; however, sound-alike word errors, addition and/or deletions may occur. If there is any question about this report, please contact Client Services. ADDITIONAL NOTES: Immunohistochemical and/or in situ hybridization studies were performed on this case with the appropriate positive controls that react as expected. This test was developed and its performance characteristics determined by [facility]. It has not been cleared or approved by the U.S. Food and Drug Administration. The FDA has determined that such clearance or approval is not necessary. This test is used for clinical purposes. It should not be regarded as investigational or for research. [facility] is certified under the Clinical Laboratory Improvement Amendments of 1988 (CLIA) as qualified to perform high complexity clinical laboratory testing. PERFORMING LABORATORY: The technical component was performed by [facility], [address] [place] [id number] ([employer]: Harleen Jeffers MD; CLIA# [id number]). [facility], [address] [address] ([employer]: Jorge Porras MD; CLIA# [id number]). Diagnostician: Jorge Porras MD Pathologist Electronically Signed 01/24/2019 Copies: ~ PATIENT NAME: CAPRICE AMADOR PATHOLOGY DATE OF : 55 REPORT #: [id number] PHYSICIAN: JERSEY MCQUEEN PCP: YOKASTA MILLS REPORT IS CONFIDENTIAL AND NOT TO BE RELEASED WITHOUT AUTHORIZATION
--- NOTE | 2019-01-24 15:55 | NUR ---
[facility] CONTACTED TO SEE IF THEY HAVE OSTOMY POWDER AND ADDITIONAL SUPPLIES THAT MAY HELP WITH LEAKING APPLIANCE, THEY ARE ABLE TO SUPPLY OSTOMY APPLIANCE AND CONVEX WASHER.
--- NOTE | 2019-01-24 16:22 | NUR ---
OSTOMOY SUPPLIES OBTAINED FROM [facility]. OSTOMY APPLIANCE REMOVED, SKIN CLEANSED WITH ADHESIVE REMOVER, MAALOX APPLIED TO EXCORIATED SKIN PER ORDER. SKIN CLEANSED WITH WATER, DRIED, "CRUSTING" COMPLETED WITH OSTOMY POWDER AND SKIN PROTECTANT SPRAY. CONVEX WASHER MOLDED AND APPLIED AROUND STOMA, OSTOMY APPLIANCE ATTACHED TO WASHER AND SKIN, BAG APPLIED. PT PROVIDED WARM BLANKET AND INSTRUCTED TO APPLY PRESSURE TO HELP WITH SEALING. PT TOLERATED OSTOMY APPLIANCE CHANGE WITH INTERMITTENT MILD BURNING TO EXCORIATED SKIN. WILL CONTINUE TO MONITOR FOR LEAKING.
--- NOTE | 2019-01-24 19:05 | NUR ---
PATIENT IN BED, RNS IN ROOM CHANGING OSTOMY BAG AND GIVING REPOSRT. CALL LIGHT IN REACH. NO FURTHER NEEDS AT THIS TIME.
--- NOTE | 2019-01-24 19:12 | NUR ---
OSTOMY APPLIANCE LEAKING. APPLIANCE REMOVED WITH ADHESIVE REMOVER, SKIN CLEANSED, MAALOX APPLIED AND ALLOWED TO SOAK FOR A 5 MINUTES, SKIN CLEANSED WITH WATER, AND PATTED DRY. "CRUSTING" COMPLETED AGAIN WITH OSTOMY POWDER AND SKIN PROTECTANT SPRAY, CONVATEC OSTOMY APPLIED AND PRESSURE HELD TO HELP WITH BONDING, BAG ATTACHED. PT TOLERATED WITH BURNING PAIN TO SKIN. REDNESS IMPROVED, NO FROM 6-9 O'CLOCK.
--- NOTE | 2019-01-24 19:55 | NUR ---
REPORT RECEIVED FROM DAY SHIFT RN. PT LYING IN BED, ALERT AND ORIENTED. DAY SHIFT RN WORKING ON OSTOMY APPLIANCE. OSTOMY NOT LEAKING FOR THE MOMENT. PT C/O ABDOMINAL PAIN. WILL MEDICATE WITH PRN TYLENOL AND MOTRIN PER ORDER.
--- NOTE | 2019-01-24 19:56 | NUR ---
ROUNDED CHARGE. PATIENT IS RESITNG IN BED. PATIENT DENIES ANY COMMENTS, QUESTIONS OR CONCERNS. NO NEEDS NOTED. CALL LIGHT IN REACH.
--- NOTE | 2019-01-24 20:30 | NUR ---
EVENING ASSESSMENT COMPLETE. PT IN BED, DROWSY. MEDICATED WITH PRN IBUPROFEN FOR ABD PAIN. MIDLINE ABD INCISION WELL APPROXIMATED. NO REDNESS OR DRAINAGE NOTED, STERI STRIPS CDI. BOWEL TONES PRESENT. GIA DRAINING SMALL AMOUNT OF SEROUS DRAINAGE, GAUZE DRESSING WITH OPSITE INTACT. YOGURT GIVEN PER PT REQUEST. OSTOMY LEAKING A SMALL AMOUNT FROM THE SIDE OF APPLIANCE. SKIN CLEANED AND BARRIER CREAM APPLIED. APPLIANCE NOT CHANGED AT THIS TIME. PT DENIES OTHER NEEDS AT THIS TIME. CALL LIGHT IN REACH.
--- NOTE | 2019-01-24 22:17 | NUR ---
THIS RN IN TO ROOM TO ASSIST PT WITH EMPTYING OSTOMY BAG. PT HESITANT BUT WAS ABLE TO SUCCESSFULLY EMPTY AND CLEAN BAG. APPLIANCE STILL LEAKING A SMALL AMOUNT FROM THE SIDE. PT DOES NOT WANT TO CHANGE WHOLE APPLIANCE AT THIS TIME. SKIN CLEANED AND BARRIER CREAM APPLIED. CLEAN TOWEL PLACED UNDER THE BAG TO CATCH DRAINAGE. NO FURTHER QUESTIONS OR REQUESTS AT THIS TIME. CALL LIGHT IN REACH.
--- NOTE | 2019-01-25 01:09 | NUR ---
PT RESTING IN BED WITH EYES CLOSED, NAD. CALL LIGHT IN REACH.
--- NOTE | 2019-01-25 03:40 | NUR ---
O2 SATS 99% ON 15L OXYMASK AT REST. O2 TITRATED TO 10L. RR EVEN AND UNLABORED.
--- NOTE | 2019-01-25 03:48 | NUR ---
PT CONTINUES TO REST. RR EVEN AND UNLABORED. NAD. CALL LIGHT IN REACH.
--- NOTE | 2019-01-25 04:11 | NUR ---
PT OOB AMB TO BR TO VOID 400 ML CL YELLOW URINE. KARTHIK FAIR. INCREASED RR WITH AMB, UNLABORED, PT DENIES SOB. O2 SATS 95% ON 10L OXYMASK. NO FURTHER NEEDS AT THIS TIME.
--- NOTE | 2019-01-25 06:10 | NUR ---
RN IN TO DO ASSESSMENT AND VS. PT UP TO BR WITH MINIMAL ASSIST TO VOID 350 ML YELLOW URINE. KARTHIK WELL. BACK TO BED. OSTOMY EMPTIED BY RN. MEDICATED WITH PRN TYLENOL FOR 6/10 ABD PAIN. MIDLINE ABD INCISION WELL APPROXIMATED, STERI STRIPS CDI. PT DENIES OTHER NEEDS AT THIS TIME. CALL LIGHT IN REACH.
--- NOTE | 2019-01-25 06:16 | NUR ---
PT RESTED WELL THROUGH OUT THE NIGHT. MIDLINE ABD INCISION WELL APPROXIMATED, STERI STRIPS CDI. GIA ON LEFT SIDE DRAINING SEROUS FLUID, SITE COVERED WITH GUAZE AND REINFORCED WITH OPSITE DRESSING. OSTOMY ON RIGHT SIDE CONTINUES TO LEAK A SMALL AMOUNT. PT EMPTIED APPLIANCE 1X LAST NOC. BOWEL TONES PRESENT. PAIN CONTROLLED WELL WITH ALTERNATING PRN TYLENOL AND MOTRIN.
--- NOTE | 2019-01-25 07:33 | NUR ---
0708: Bedside report received from Iman SOARES. Pt resting in her bed with no compliants other than her continue leaking ostomy site. Call adela trinh.
--- NOTE | 2019-01-25 08:20 | NUR ---
PT DENIES ANY NEW PROBLEMS. SHE DOES COMPLAIN ABOUT THE LEAKING OF HER ILEOSTOMY THAT CONTINUES. PLAN TO CHANGE TO JUAN SHORTLY.
--- NOTE | 2019-01-25 08:58 | NUR ---
PT RESTING IN BED. PT HAS NO NEEDS AT THIS TIME.
--- NOTE | 2019-01-25 09:15 | NUR ---
SPOKE WITH PATIENT IN ROOM WITH . PATIENT IN TEARS. STATES SHE IS SCARED TO GO HOME, SHE STATES "THEY JUST CAN'T GET THE BAG TO QUIT LEAKING". SHE STATES THE BAG HAD TO BE CHANGED FOUR TIMES YESTERDAY. DISCUSSED WITH HER THAT WE WILL NOT DISCHARGE HER UNTIL THIS IS FIGURED OUT. SPOKE WITH STAFF. THEY STATED THEY CALLED [facility] YESTERDAY TO SEE ABOUT DIFFERENT OPTIONS FOR SUPPLIES. THEY WERE ABLE TO SEND SOME THINGS. CALLED [facility] TODAY RENETTA SPOKE WITH REINA, SHE STATES THEY ARE HAVING A HOME HEALTH NURSE STOP BY TODAY TO SEE IF THEY CAN OFFER ANY SUGGESTIONS. STAFF AND PATIENT UPDATED.
--- NOTE | 2019-01-25 10:24 | NUR ---
PT'S ILEOSTOMY SITE WAS DRAINING UNDER THE WAFFER ON THE RIGHT SIDE. THE WAFFER WAS CHANGED AT THIS TIME. WILL CONTINUE TO MONITOR FOR LEAKS. THE SKIN ON AROUND THE STOMA AND LARGELY ON THE RIGHT SIDE IS RED AN IRRITATED. MAALOX WAS APPLIED AND ALLOWED TO SOAK THE SKIN, THE SITE WAS DRIED, BARRIER SPRAY WAS APPLIED AND STOMA PASTE WAS PLACE AND A NEW WAFFER AND BAG APPLIED. IT WAS UNCOMFORTABLE TO THE PT TO HAVE THE WAFFER CHANGED DUE TO HER SKIN IRRITATION. PT NOW STATES THAT IT IS EASING UP AFTER THE CHANGE IS DONE.
--- NOTE | 2019-01-25 11:14 | NUR ---
WAFFER IS LEAKING AGAIN. DRESSING CHANGED AGAIN, THIS TIME A COLOPLAST STRIP WAS USED WELL STOMA PASTE. PT STATES HER SKIN IS BURNING AND WAS MEDICATED FOR THE PAIN, SEE EMAR.
--- NOTE | 2019-01-25 11:46 | NUR ---
1130: I SPOKE WITH DR WMOACK ON THE PHONE AND UPDATED HIM TO THE STATUS OF THE OSTOMY SITE LEAKING AND HOW THE SKIN APPEARS AROUND THE STOMA. NEW ORDERS GIVEN, SEE EMAR.
--- NOTE | 2019-01-25 12:02 | NUR ---
Pt states her pain is improving.
--- NOTE | 2019-01-25 13:13 | NUR ---
PT NOW STATES HER PAIN IS A 2/10 WHICH IS UNDER CONTROL FOR HER. THE OSTOMY SITE CONTINUES TO OOZE AND THE SITE WAS REINFORCED. HOME HEALTH IS TO COME SEE THE PT SHORTLY TO SEE IF THEY CAN COME UP WITH A SOLUTION FOR THE LEAKING AT THE [facility]. PT DENIES ANY OTHER PROBLEMS. THE PT DID STATE THAT SHE DOES NOT WANT TO WALK DUE TO THE LEAKING STOOL. PT EATING LUNCH AT THIS TIME.
--- NOTE | 2019-01-25 13:55 | NUR ---
PT LAYING ON BED, COVERS OFF AND FAN BLOWING. TRA IS AT BS. HE HAS BEEN VERY VIGILANT CARING FOR PT. ILEOSTOMY BAG CONTINUES TO LEAK, STAFF HAVE CONTACTED HOME HEALTH TO COME AND SEE IF THEY CAN HELP. PT REQUESTED PRAYER, PT IS TRYING TO STAY POSITIVE, BUT TODAY ESPECIALLY IT IS A REAL CHALLENGE FOR HER. WILL FOLLOW NEEDED
--- NOTE | 2019-01-25 14:00 | NUR ---
PAIGE SOARES FROM [facility] HERE TO SEE THE PT AND CHECK ON HER OSTOMY SITE.
--- NOTE | 2019-01-25 14:28 | NUR ---
New appliance applied by Zari AGUILERA Will continue to monitor for leaking.
--- NOTE | 2019-01-25 14:46 | NUR ---
ILEOSTOMY SITE NOT LEAKING AT THIS TIME. THE STOOL IS NOW THE CONSISTENCY OF JELLO.
--- NOTE | 2019-01-25 15:31 | NUR ---
OSTOMY APPLIANCE HOLDING AND NOT LEAKING AT THIS TIME.
--- NOTE | 2019-01-25 15:47 | NUR ---
Pt states her pain is "doing good" and the waffer is holding at this time.
--- NOTE | 2019-01-25 16:55 | NUR ---
Waffer leaking on the lower right side again. Appliance changed as ordered.
--- NOTE | 2019-01-25 16:56 | NUR ---
Pt using her IS at this time.
--- NOTE | 2019-01-25 17:20 | NUR ---
DR WOMACK CALLED AND UPDATED TO THE PT'S ILEOSTOMY WAFFER FAILURE AND THAT IT HAS BEEN CHANGED [address] WOMACK STATES HE IS COMING TO SEE THE PT YET THIS EVENING. NO NEW ORDERS AT THIS TIME.
--- NOTE | 2019-01-25 19:00 | NUR ---
SHIFT REPORT RECEIVED FROM EYAD STOREY AT BEDSIDE. PT AWAKE AND RESTING IN BED, DENIES NEEDS AT THIS TIME. ABDOMINAL INCISION WELL APPROXIMATED, STERI STRIPS IN PLACE. CALL LIGHT IN REACH.
--- NOTE | 2019-01-25 20:55 | NUR ---
VITALS AND I&OS DONE AND CHARTED. PT ASKED FOR PAIN PILL. I INFORMED HER RN TOMASA. FRESH ICE WATER GIVEN. BEDSIDE TABLE AND CALL LIGHT IN REACH.
--- NOTE | 2019-01-25 21:00 | NUR ---
ASSESSMENT COMPLETE, SCHEDULED MEDICATIONS GIVEN (SEE EMAR). PT AWAKE AND RESTING IN BED, ILEOSTOMY IN PLACE, NO LEAKING NOTED. WILL CONTINUE TO MONITOR. PT REPORTS INCREASING PAIN, PRN TYLENOL ADMINISTERED. VSS. PT DENIES ADDITIONAL NEEDS, CALL LIGHT IN REACH.
--- NOTE | 2019-01-26 01:00 | NUR ---
PT REPORTS ILEOSTOMY IS LEAKING. THIS RN AND RN BALWINDER IN ROOM TO ASSESS. ILEOSTOMY WAFFER AND BAG REMOVED, STOMA WNL, INTERMITTENT OZZING NOTED. SITE AROUND STOMA IS RED AND IRRITATED. HAM SMOKER CALLED TO ASSIST WITH NEW STOMA WAFFER PLACEMENT. PT DENIES FURTHER NEEDS, CALL LIGHT IN REACH. AWAITING HAM SMOKER.
--- NOTE | 2019-01-26 01:33 | NUR ---
THEATER MANAGER IN ROOM TO ASSIST WITH STOMA CLEANING AND APPLICATION OF COLOSTOMY WAFFER.
--- NOTE | 2019-01-26 02:20 | NUR ---
PER THEATER TEACHER, STOMA WAFFER AND BAG REPLACED. PT DENIES ADDITIONAL NEEDS, CALL LIGHT IN REACH.
--- NOTE | 2019-01-26 02:50 | NUR ---
PT REPORTS ILEOSTOMY BAG IS AGAIN LEAKING, WELT BEATER CALLED AND IS IN ROOM TO ASSESS SITE.
--- NOTE | 2019-01-26 03:30 | NUR ---
PER MOVABLE BULKHEAD INSTALLER PAT, STOMA WAFFER WAS MAINTAINED, ADDITIONAL STOMA PASTE AND MASTISOL APPLIED TO STOMA SITE. WILL CONTINUE TO MONITOR.
--- NOTE | 2019-01-26 04:10 | NUR ---
PATIENT GIVEN 600MG OF PO IBUPROFEN FOR PAIN AROUND HER STOMA SITE. PATIENT HAD NO OTHER NEEDS. CALL LIGHT IN REACH.
--- NOTE | 2019-01-26 05:00 | NUR ---
ASSESSMENT COMPLETE, ILEOSTOMY IN PLACE, SCANT LEAKING NOTED TO RIGHT EDGE OF ADHESIVE. WILL MONITOR. PT DENIES BURNING OR PAIN AT PAIN. ABDOMINAL INCISION OPEN TO AIR, STERI STRIPS IN PLACE, WELL APPROXIMATED. NO NEW CHANGES OR CONCERNS. CALL LIGHT IN REACH.
--- NOTE | 2019-01-26 05:27 | NUR ---
PT RESTING IN BED, EYES CLOSED. RR WNL, PT APPEARS COMFORTABLE. NO DISTRESS NOTED. CALL LIGHT IN REACH.
--- NOTE | 2019-01-26 07:24 | NUR ---
0710: REPORT RECIEVED FROM TOMASA SOARES. PT RESTING IN BED AND SHE DENIES ANY PAIN. THE ILEOSTOMY SITE IS LEAKING AT THIS TIME AND IT WAS REINFORCED WITH A WASH CLOTH TO CATCH THE DRIPS. PT DENIES ANY OTHER PROBLEMS.
--- NOTE | 2019-01-26 08:02 | NUR ---
PT SLEEPING, AWAKES TO VOICE AND DENIES ANY PAIN AT THIS TIME.
--- NOTE | 2019-01-26 09:21 | NUR ---
0852: PT TAKEN TO HER SCHEDULED BE. A MESSAGE WAS LEFT FOR DR WOMACK TO NOTIFY HIM OF THIS HE HAD REQUESTED.
--- NOTE | 2019-01-26 10:33 | NUR ---
PT RESTING IN HER ROOM AND SHE CONTINUES TO DENIE ANY PAIN. THE OSTOMY WAFFER CONTINUES TO LEAK AND THE PT DECLINES A CHANGE AT THIS TIME THEY CONTINUE TO LEAK AFTER THE CHANGES IN THE PAST. IT SITE WAS REINFORCED WITH TOWELS AND SHE STATES SHE WILL CALL FOR A CHANGE IF THE SITE STARTS TO CAUSE BURNING AGAIN.
--- NOTE | 2019-01-26 12:38 | NUR ---
PT RESTING IN BED- TRA AND SON PARAM AT . PT IS TO HAVE REVERSAL TOMORROW-PT IS PLEASED. GAVE A BLESSING, WILL FOLLOW NEEDED
--- NOTE | 2019-01-26 13:14 | NUR ---
OSTOMY SITE CONTINUES TO LEAK. THE PT DECLINES A CHANGE OF THE DRESSING AT THIS TIME. SHE IS PLANNING TO TAKE A SHOWER AND STATES IT CAN BE CHANGED FOLLOWING HER SHOWER. PT STATES SHE IS PLEASED WITH THE PLAN OF SURGERY TOMORROW FOR THE REVERSAL. ARMINDA DENIES ANY PAIN AT THIS TIME.
--- NOTE | 2019-01-26 15:09 | NUR ---
PATIENT TOOK A SHOWER TODAY.
--- NOTE | 2019-01-26 15:40 | NUR ---
The pt has showered and has a new iv in her right upper arm placed by Jasson SOARES and Jossie SOARES with ultrasound. The ostomy bag and waffer were removed and the site cleaned but I was unable to get off all of the stoma paste. The skin around the stoma specifically on the right lower edge remains red, irritated and weeping. The area was dried, barrier spray applied, stoma power applied after the barrier spray dried and a diaper was placed over the stoma and held in place with an anita wrap. There was a towel placed under the right side of the pt as well as some chucks to catch as missed drainage. The pt was encouarged to call with any pain at the site or noted drainage.
--- NOTE | 2019-01-26 16:47 | NUR ---
Pt's dressing over her ostomy site was removed, the site cleaned and redressed as before. The skin appears unchanged. The pt states there is "a little burning" at the site and she was medicated, see emar. Orellana denies any other problems at this time.
--- NOTE | 2019-01-26 17:45 | NUR ---
PT RESTING IN HER BED AND STATES HER PAIN IS A 1/10 AT THIS TIME. DRESSING ON THE OSTOMY SITE INTACT AT THIS TIME.
--- NOTE | 2019-01-26 18:42 | NUR ---
Ostomy dressing changed as before and the pt tolerated the change well. The site appears a little less red than it did prior. There was a scant amount of bleeding from the stoma which quicky stopped. The surrounding tissue continues to have stoma paste in place which is turning out to be very difficult to remove while trying to not cause the pt any pain.
--- NOTE | 2019-01-26 19:05 | NUR ---
IN ROOM FOR REPORT, PT IS AWAKE IN BED. SHE DENIES NEEDS AT THIS TIME. CALL LIGHT IS CLOSE.
--- NOTE | 2019-01-26 21:30 | NUR ---
IN ROOM TO ASSESS PT AND ADMINISTER MEDICATIONS. PT REPORTS PAIN 4/10 BURNING AT STOMA SITE. SHE JUST HAD STOMA SITE CLEANED UP BY RONALDO SOARES AND SKIN PROTECTANT APPLIED ALONG WITH DRESSING TO CATCH DRAINAGE. PT IS ON CLEARS UNTIL MIDNIGHT AND DENIES NEED FOR FURTHER FLUIDS AT THIS TIME BESIDES WATER. GIA ONLY PUT OUT 5MLS AT MOST OF SEROUS FLUIDS. LR IS INFUSING AT 65 MLS/HOUR. PT DENIES NEEDS AT THIS TIME. CALL LIGHT IS WITHIN REACH.
--- NOTE | 2019-01-26 23:26 | NUR ---
PT IS RESTING WITH EYES CLOSED, RR IS EVEN AND NONLABORED. CALL LIGHT IS WITHIN REACH.
--- NOTE | 2019-01-27 01:48 | NUR ---
PT IS RESTING WITH EYES CLOSED, RR IS EVEN AND NONLABORED. CALL LIGHT IS WITHIN REACH.
--- NOTE | 2019-01-27 02:59 | NUR ---
asst SOARES c\ ostemy cleanup and change
--- NOTE | 2019-01-27 03:59 | NUR ---
PT IS RESTING WITH EYES CLOSED, RR IS EVEN AND NONLABORED. CALL LIGHT IS WITHIN REACH.
--- NOTE | 2019-01-27 06:20 | NUR ---
asst RN c\ am vitals, asst with ostemey change and GIA Drain measurement,
--- NOTE | 2019-01-27 06:25 | NUR ---
CHANGED PT'S DRESSING OVER OSTOMY AND HUNG NEW IV BAG. PT DENIES NEEDS AT THIS TIME. CALL LIGHT IS CLOSE.
--- NOTE | 2019-01-27 09:41 | NUR ---
PRE OP WIPE DOWN COMPLETE AT THIS TIME. PROP CHECKLIST DONE.
--- NOTE | 2019-01-27 10:02 | NUR ---
PT LEFT UNIT FOR SURGERY WITH OR NURSE MEMBER.
--- NOTE | 2019-01-27 12:37 | NUR ---
01/27/19 1237 Yolanda,Angelique 1147 PT ARRIVED TO PACU ON 6L VIA MASK, PT REACTIVE TO TACTILE STIMULI AND IS REORIENTED TO PACU. 1150 PT REPORTS SHE IS HAVING PAIN AND NAUSEA. APPRENTICE COSMETOLOGIST AT BEDSIDE. DECREASED RESP NOTED AND PT ENOCUARGED TO DEEP BREATHE. 1154 NAUSEA MEDICATION GIVEN PER APPRENTICE COSMETOLOGIST. PT REPORTS PAIN 10/10, PT DEEP BREATHING AND MOANING. 1201 6 BEATS OF V-TACH NOTED ON MONITOR. CNRA AND MD NOTIFIED, NO NEW ORDERS. PT DENIES CHEST PAIN AND DIZZINESS AT THIS TIME. PT REPORTS NO CHANGE IN PAIN OR NAUSEA. 1204 PAIN MEDICATION GIVEN PER EMAR. DECREASED RESP NOTED AND RN CONTINUES TO ENOCUARGE DEEP BREATHING, O2 SAT REMIANS HIGH 90S. 1206 PT RESTING IN BED MOANING OFF AND ON. 1210 PT REPORTS NO CHANGE IN PAIN AND RATES 10/10 RIGHT AT SUGICAL SITE. 1215 O2 MASK REMOVED. PT REPORTS "I FEEL LIKE I AM GOING TO THROW UP." EMESIS BAG GIVEN AND HOB INCREASED SLIGHTLY. NO EMESIS NOTED AT THIS TIME. 1221 NAUSEA MEDICATION GIVEN. PT CONTINUES TO RATE PAIN 10/10 AND REPORTS NAUSEA. VITAL REMAIN STABLE WITH RESP BETWEEN 7-10. 1233 PT REPORTS PAIN IS 9/10 AND NAUSEA "IS ABOUT THE SAME." PT MORE AWAKE AND CONTINUES TO DEEP BREATHE AND MAON OFF AND ON. RESP 7-10. O2 SAT 93-95%
--- NOTE | 2019-01-27 13:38 | NUR ---
PT BACK FROM SURGERY. VS STABLE AT THIS TIME. PT IS ON 2L OXYGEN, SAT LEVEL OF 98% ON 2L PER NC. PT REPORTING 10/10 ABD PAIN; TORADOL 30MG IVP ADMIN. PT IV LR INCREASED TO 100ML/HR PER DOC ORDER. PT ORIENTED TO ROOM AND CALL LIGHT. FAMILY AT BEDSIDE. DRESSING TO RIGHT ABD IS CDI. PT DTV. CALL LIGHT WITHIN REACH. NO NEEDS AT THIS TIME.
--- NOTE | 2019-01-27 14:46 | NUR ---
ADMIN MORHINE 2MG IVP FOR REPORTS OF 10/10 ABD PAIN. PT STATES THE TORADOL DID NOT WORK. TYLENOL IVP WAS RECENTLY GIVEN IN PACU SO UNABLE TO GIVE AT THIS TIME. PT REPORTS NAUSEA IS A BIT IMPROVED. ABD DRESSING CDI. FAMILY AT BEDSIDE. PT DENIES NEED TO VOID. PERSONAL SUPPLIES AND CALL LIGHT WIHTIN REACH.
--- NOTE | 2019-01-27 15:40 | NUR ---
PT RESTING, EYES CLOSED. CPOX INTACT, 93% ON 1L OXYGEN PER NC. PT'S VS STABLE. NO DISTRESS AT THIS TIME. FAMILY AT BEDSIDE. PERSONAL SUPPLIES AND CALL LIGHT WITHIN REACH.
--- NOTE | 2019-01-27 16:40 | NUR ---
ADMIN ZOFRAN 8MG IVP FOR REPORTS OF NAUSEA.
--- NOTE | 2019-01-27 16:50 | NUR ---
VS STABLE, RESP EVEN AND NON LABORED. CPOX INTACT, OXYGEN SAT LEVEL 95% ON RA. ASSISTED PT TO COMMODE AT THIS TIME; PT TOLERATED WELL WITH 1PA. PT STATES THAT ANY PHYSICAL MOVEMENT CAUSES INCREASED NAUSEA. PERSONAL SUPPLIES AND CALL LIGHT WITHIN REACH.
--- NOTE | 2019-01-27 17:39 | NUR ---
ADMIN TYLENOL 1000MG IVP FOR REPORTS OF 9/10 ABD PAIN.
--- NOTE | 2019-01-27 19:12 | NUR ---
REPORT AT BEDSIDE. PT RESTING IN BED. C/O SOME SLIGHT NAUSEA. NO MEDICATION DUE AT THIS TIME. COOL WASHCLOTH ON FORHEAD, AND EMISIS BAG AT SIDE.
--- NOTE | 2019-01-27 23:17 | NUR ---
NOTED ELEVATED BP CHARTED AT 2143 191/66. PT EXPERINCEING 01/18 PAIN REQUIRED TORADOL AND MORPHINE ADMINISTARTION TO REGULATE DOWN TO 09/18. BP RE-ASSESSED 176/61. DISCUSSED WITH SAT ACT INSTRUCTOR.
--- NOTE | 2019-01-28 00:16 | NUR ---
PT HAVING DIFFICUTLY WITH PAIN CONTROL AND NAUSEA. ADMINISTERED PHENERGEN AND MORPHINE.
--- NOTE | 2019-01-28 02:18 | NUR ---
PT CALLED, ASSISTED HER TO THE RESTROOM AND BACK TO BED. REINFORCED RIGHT ABD DRESSING WITH ABD AND MEDIPORE D/T SEROUS DRAINAGE LEAKING OUT. PT DENIES FURTHER NEEDS AT THIS TIME. CALL LIGHT IS WITHIN REACH.
--- NOTE | 2019-01-28 05:09 | NUR ---
PT HAD A ROUGHT FIRST PART OF THE NIGHT WITH UNCONTROLED PAIN AND NAUSEA. ONCE GIVEN PHENERGERN AND MORPHINE SHE WAS ABLE TO REST FOR THE REST OF THE NIGHT. AN ELEVATED BP DURRING INTENSE PAIN RESOLVED. PT CALL APPROPRIATLY FOR ASSISTANCE. GAZE DRESSING RE-INFORCED DUE TO SMALL AMMOUNT OF DRAINAGE. GIA OUTPUT VOLUME MINIMAL AND YELLOW. LUNG SOUNDS CLEAR WITH DIMINSHED IN BASE.
--- NOTE | 2019-01-28 07:10 | NUR ---
REPORT RECEIVED FROM WOOD SHOP TEACHER RN. PT RESTING IN BED. PT REPORTS 4/10 PAIN THAT IS TOLERABLE AT THIS TIME. PT DENEIS NAUSEA. DRESSING C/D/I. NO ADDITIONAL REQEUSTS OR COMPLAINTS AT THIS TIME. CALL LIGHT WITHIN REACH.
--- NOTE | 2019-01-28 09:41 | NUR ---
ADMIN TYLENOL 1000MG PO FOR REPORTS OF 5/10 RIGHT LOWER ABD/INCISIONAL PAIN.
--- NOTE | 2019-01-28 10:00 | NUR ---
MORNING ASSESSMENT DUE. SBA UP TO RESTROOM AND THEN TO CHAIR. PT REPORTS 4/10 PAIN WHICH SHE STATES IS TOLERABLE. PT DENIES NEED FOR PAIN MEDICATION. PT DENIES NAUSEA, TOLERATING CLEAR LIQUID DIET. STOMA SURGICAL SITE DRESSING WAS REINFORCED BY MANAGER HIGHWAY RN, ABD PAD OVER DRESSING WITH METAPORE TAPE. C/D/I ON SURFACE. WHEN LOOKING UNDER ABD PAD, SURGICAL DRESSING SHOWS YELLOW SHADOWING THROUGHOUT DRESSING. GIA DRESSIN C/D/I. 10ML YELLOW DRAINAGE REMOVED FROM GIA DRAIN. MIDLINE OLD SURGICAL INCISION IS WELL APROXIMATED WITH NO DRAINAGE NOTED. LUNG SOUNDS CLEAR. PT DEMONSTRATES USE OF I.S. REACHING 1750ML. CPOX REMAINS IN PLACE PER POST SURGICAL PROTOCOL. ICE WATER REFILLED. NO ADDITIONAL REQUESTS OR COMPLAINTS. AT CHAIRSIDE. CALL LIGHT WITHIN REACH.
--- NOTE | 2019-01-28 10:41 | NUR ---
THIS RN TO ROOM TO CHECK ON PT. PT REMAINS UP TO CHAIR. PT REPORTS 4/10 PAIN AND DENIES NEED FOR ADDITIONAL MEDICATION. PT TALKIGN ON PHONE. NO ADDITONAL REQUESTS OR COMPLAINTS. CALL LIGHT WITHIN REACH.
--- NOTE | 2019-01-28 10:49 | NUR ---
PATIENT IN BED RESTING WITH EYES CLOSED. IN ROOM. CALL LIGHT IN REACH. NO FURTHER NEEDS AT THIS TIME.
--- NOTE | 2019-01-28 11:25 | NUR ---
MD ORDERS FOR DRESSING CHANGE NOTED. ABD PAD REMOVED. SATURATED GAZUE DRESSING REMOVED. PT ASSISTS WITH CARES. NEW GAUZE DRESSING APPLIED PER MD ORDERS. PT DEMONSTRATES UNDERSTANDING AND STATES "THAT'LL BE PRETTY EASY TO DO AT HOME." PT REPROTS 09/18 PAIN. SEE MAR FOR MEDICATION GIVEN. PT DENIES NASUEA. BLOOD SUGAR = 204, PT REQUESTS SHERBERT FOR LUNCH. PROVIDED REQUESTED. MEDICATIONS GIVEN. PT REMAINS UP TO CHAIR. NO ADDITIONAL REQUESTS OR COMPLAINTS AT THIS TIME. CALL LIGHT WITHIN REACH.
--- NOTE | 2019-01-28 11:47 | NUR ---
NOON ASSESSMENT, BLOOD SUGAR CHECK AND MEDICATION DUE. PT UP TO CHAIR. ASSESSMENT DONE. CPOX DC'D PT REMAINS IN 98% ON ROOM AIR. PT UP TO AMBULATE X1 LAP IN MIN. PT BACK TO BED AFTER AMBULATION TO REST. CLEAR LIQUID TRAY ORDERED FOR PT. NEW GAUZE DRESSING OVER STOMA REDUCATION C/D/I. MIDLINE INCISION WELL APROXIMATED. GIA DRAIN SHOWS NO NEW DRAINAGE AT THIS TIME. PT REPORTS TORDOL IS HELPING THE PAIN. NO ADDITIONAL REQUESTS OR COMPLAINTS AT THIS TIME. CALL LIGHT WITHIN REACH. AT BEDSIDE.
--- NOTE | 2019-01-28 13:09 | NUR ---
THIS RN TO ROOM TO CHECK ON PT. PT REPORTS 4/10 PAIN THAT IS TOLERABLE AT THIS TIME. PT DENIES NEED FOR ADDITIONAL PAIN MEDICATION. PT RESTING IN BED. AT BEDSIDE. NO ADDITIONAL REQUESTS OR COMPLAINTS AT THIS TIME. CALL LIGHT WITHIN REACH.
--- NOTE | 2019-01-28 13:39 | OR ---
[facility] [address] [place], [place] [address] Signed DATE OF OPERATION: 01/27/2019 SURGEON: Popeye Womack MD PREOPERATIVE DIAGNOSES: 1. Dysfunctional loop ileostomy with skin excoriation, inability to control ileostomy contents. 2. History of perforated splenic flexure colon cancer with segmental resection, kxgd-yj-shfc anastomosis and protective loop ileostomy; associated pericolic abscess (drained on January 18, 2019). POSTOPERATIVE DIAGNOSES: 1. Dysfunctional loop ileostomy with skin excoriation, inability to control ileostomy contents. 2. History of perforated splenic flexure colon cancer with segmental resection, srvy-wx-svvj anastomosis and protective loop ileostomy; associated pericolic abscess ( January 18, 2019). PROCEDURE: Removal of loop ileostomy with segmental small bowel resection and end-to-end hand-sewn enteroenterostomy. ANESTHESIA: General endotracheal; Judi Truong CRNA and unilateral tap block, right side. INDICATIONS: This 63-year-old white woman is a patient of ARIANA Dempsey and Dr. Rosalio Hinds and was admitted to the hospital by hi on January 15, 2019, having presented to the emergency room with severe left upper abdominal pain and a CT scan finding showing an abscess in the retroperitoneum and deep intraabdominal area in the left upper quadrant. The radiologist's initial consideration was this may represent a pancreatic or colonic fistula, which was certainly not the case. Colonoscopy was performed to rule out neoplasm. The patient had undergone colonoscopy at [facility] 3 years ago without signs of cancer, but with polyps. She does have family history of colon cancer. The colonoscopy did not demonstrate a mass and she proceeded to operation where she was to undergo drainage of the abscess. The abscess was well formed and in the region of the splenic flexure that associated with a dense mass highly suggestive of malignancy. This subsequently proved to be the case. A perforated left transverse/splenic flexure colon cancer was ultimately diagnosed. A zwkp-bx-wmvm colocolostomy was performed with a protective loop ileostomy. Electronically Signed By: POPEYE WOMACK MD 01/28/19 1339 PATIENT NAME: CAPRICE AMADOR OPERATIVE REPORT DATE OF : 55 REPORT #: [id number] PHYSICIAN: POPEYE WOMACK MD PCP: YOKASTA MILLS REPORT IS CONFIDENTIAL AND NOT TO BE RELEASED WITHOUT AUTHORIZATION [facility] [address] [place], [place] [address] Signed She has recovered very well from the operation except for the fact the she has persistent peristomal leakage and progressive and significant skin excoriation. Various methods have been used to secure the ileostomy device, but placement of the ileostomy is in a skin crease that was unbeknownst to me at time of operation and is extremely problematic at this time, causing progressive skin destruction. She underwent a Gastrografin enema yesterday identifying the cfld-id-yvgf colocolostomy as intact and without sign of leakage. I have offered a solution to this problem to include early takedown of the ileostomy versus revisional surgery for the ileostomy. Since there is no anastomotic leakage detected and she is otherwise doing well, I believe it reasonable to takedown the ileostomy at this time with segmental bowel resection. The risks of bleeding, infection, anastomotic failure, or other problems were reviewed in detail. She understands and wished to proceed. FINDINGS: The skin excoriation was ascertained. There was no sign of full-thickness loss of epidermis, but there certainly was significant excoriation. The abdominal wall was obese. The loop segment was mobilized and segmental resection undertaken. An end-to-end ileoileostomy was formed in a 2-layer technique of interrupted 3-0 silk suture and 3-0 Vicryl suture for the inner layer. Abdominal wall defect was repaired at the conclusion of the procedure. There was no complication. DESCRIPTION OF PROCEDURE: The patient was brought to the operating room, given a general endotracheal anesthetic. Preoperative antibiotic, Levaquin and Flagyl were given. Sequential compression device stockings were in place and heparin subcutaneously administered. A Gillis catheter was placed. The ileostomy bag was removed the night prior to operation as the wafer itself was extremely irritating to the patient. The remaining stoma adhesive material was removed with appropriate solvents and the abdomen was then prepared with chlorhexidine solution and draped sterilely. Steri-Strips from the midline incision had been removed. An elliptical incision was made at the ileostomy site. Dissection carried through the dermis and subcutaneous tissue with electrocautery. Ultimately, the fascial wall was encountered. The small bowel was freed from the fascial inflammatory changes and the bowel delivered out of the wound more fully. As expected, inflammatory changes between the mesentery of the small bowel loops was freed with blunt electrocautery dissection. Electronically Signed By: POPEYE WOMACK MD 01/28/19 1339 PATIENT NAME: CAPRICE AMADOR OPERATIVE REPORT DATE OF : 55 REPORT #: [id number] PHYSICIAN: POPEYE WOMACK MD PCP: YOKASTA MILLS REPORT IS CONFIDENTIAL AND NOT TO BE RELEASED WITHOUT AUTHORIZATION [address] [address] Signed An area designated appropriate for segmental excision was identified. The mesentery in this area was lightly scored with electrocautery. Hemostats were applied to the blood vessels and secured with 2-0 silk ties. A JANIYA stapling device, 75 mm in length was used to transect the proximal and distal ileal bowel segments. Specimen passed for pathology. Photographs were taken. Given the configuration of the bowel, it was deemed most appropriate to perform an end-to-end ileoileostomy rather than a lndc-zd-dwva stapled connection particularly as there was mild edema of the bowel related to recent operation. This was accomplished without problem using 2-layer technique of interrupted 3-0 silk suture in the serosal layer and interrupted 3-0 Vicryl in the mucosal layer. The mesenteric defect was secured with a few interrupted 3-0 silk sutures. The fascial opening was extended laterally a bit to allow reduction of the bowel loop into the abdominal cavity. The Peritoneal layer and fascial layer was reapproximated with running PDS suture initially and then the muscular layers, including the anterior rectus sheath, was secured with interrupted 0 PDS suture. Copious irrigation was undertaken in the area. Two interrupted 3-0 Vicryl were used to secure scarpas fascia and gauze was packed into the wound to allow for delayed primary closure. The patient was ultimately extubated after undergoing a unilateral right-sided tap block by the publicist. She tolerated the procedure well. BLOOD LOSS: Less than 20 mL in aggregate. COUNTS: Sponge, needle, and instrument counts reported as correct x3. MD CLEMENT Landon/EBENEZER /[id number] cc: Gabriela Huff MD Electronically Signed By: POPEYE WOMACK MD 01/28/19 1339 PATIENT NAME: CAPRICE AMADOR OPERATIVE REPORT DATE OF : 55 REPORT #: [id number] PHYSICIAN: POPEYE WOMACK MD PCP: YOKASTA MILLS REPORT IS CONFIDENTIAL AND NOT TO BE RELEASED WITHOUT AUTHORIZATION [address] [address] Signed ARIANA Law Copies: GABRIELA HUFF MD, BRUCE JARRELL, RANDALL PA ~ Electronically Signed By: POPEYE WOMACK MD 01/28/19 1339 PATIENT NAME: CAPRICE AMADOR OPERATIVE REPORT DATE OF : 55 REPORT #: [id number] PHYSICIAN: POPEYE WOMACK MD PCP: YOKASTA MILLS REPORT IS CONFIDENTIAL AND NOT TO BE RELEASED WITHOUT AUTHORIZATION
--- NOTE | 2019-01-28 14:01 | NUR ---
PATIENT IN BED RESTING. NO VOID, PATIENT SAYS SHE DOESNT SHE DOESNT HAVE TO GO, RN NOTIFIED. CALL LIGHT IN [facility]. NO FURTHER NEEDS AT THIS TIME.
--- NOTE | 2019-01-28 15:16 | NUR ---
THIS RN TO ROOM TO CHECK ON PT. PT ASSISTED WITH ORDER FULL LIQUID DINNER. PT REPORTS 2/10 PAIN AND DENIES NEED FOR PAIN MEDICATION AT THIS TIME. BED RAILS UP. CALL LIGHT WITHIN REACH.
--- NOTE | 2019-01-28 16:17 | NUR ---
AFTERNOON ASSESSMENT DUE. PT UP TO AMBULATE IN HALLS X1 LAP, SBA, PT UP TO RESTROOM, VOIDS WITHOUT ISSUE. ASSESSMENT DONE. MIDLINE INCISION REMAINS C/D/I WITH EDGES APPROXIMATED. GAUZE DRESSING TO CLOSED STOMA C/D/I, NO DRAINAGE NOTED. GIA BANDAID SHOWS MINIMAL AMOUNT OF SHADOWING. PT REPORTS PAIN OF 2/10 AND DENIES NAUSEA. PT ANTICIPATING DINNER ORDER AND ADDS SHERBERT TO ORDER. I.S. USE DEMONSTRATED. PT REACHES 1750ML. NO ADDITIONAL REQUESTS OR COMPLAINTS AT THIS TIME. CALL LIGHT WITHIN REACH.
--- NOTE | 2019-01-28 18:31 | NUR ---
THIS RN TO ROOM TO CHECK ON PT. PT TALKING ON PHONE. PT REPORTS 5/10 PAIN AND REQUESTS MEDICATION. SEE MAR FOR MEDICATION GIVEN. VITALS TAKEN, I/O RECORDED. PT WATCHING TV. NO ADDITIONAL REQUESTS OR COMPLAINTS AT THIS TIME.
--- NOTE | 2019-01-28 18:33 | NUR ---
PT HERE FOR ILEOSTOMY TAKE DOWN. GAUZE DRESSING IN PLACE TO BE CHANGED DAILY AND PRN. C/D/I THIS SHIFT AFTER DRESSING CHANGE. GIA DRAIN DC'D MY MD. DRESSING OVER OLD CHEST TUBE SITE DC'D BY . ANNABELLA AND MENG GIVEN THIS SHIFT FOR 5-6/10 PAIN. CPX DC'D, PT TOLERATING ROOM AIR WIHT O2 SATURATIONS ABOVE 92%.PT ADVANCED TO FULL LIQUID DIET. TOLERATING WITHOUT NAUSEA. BLOOD SUGAR CHECKS WITH SLIDING SCALE INSULIN. VOIDING QUANTITY SUFFICIENT. BOWEL MOVMENT TODAY. ENCOURAGING AMBULATION, PT UP IN HALLS X2 THIS SHIFT. PT USES CALL LIGHT APPROPRIATLY.
--- NOTE | 2019-01-28 18:39 | NUR ---
PT HERE FOR ILEOSTOMY TAKE DOWN. GAUZE DRESSING IN PLACE TO BE CHANGED DAILY AND PRN. C/D/I THIS SHIFT AFTER DRESSING CHANGE. GIA DRAIN DC'D MY MD. ANNABELLA AND MENG GIVEN THIS SHIFT FOR 5-6/10 PAIN. CPX DC'D, PT TOLERATING ROOM AIR WIHT O2 SATURATIONS ABOVE 92% ADVANCED TO FULL LIQUID DIET. TOLERATING WITHOUT NAUSEA. BLOOD SUGAR CHECKS WITH SLIDING SCALE INSULIN. VOIDING QUANTITY SUFFICIENT. BOWEL MOVMENT TODAY. ENCOURAGING AMBULATION, PT UP IN HALLS X2 THIS SHIFT. PT USES CALL LIGHT APPROPRIATLY.
--- NOTE | 2019-01-28 19:37 | NUR ---
REPORT RECEIVED FROM DAY SHIFT RN. PT LYING IN BED, ALERT AND ORIENTED. PT STATES PRN TYELON GIVE PREVIOUSLY HELPED WITH ABD PAIN. ILEOSTOMY TAKE DOWN SITE ON RIGHT SIDE COVERED WITH GUAZE DRESSING, CDI. MIDLINE ABD INCISION WELL APPROXIMATED, OPEN TO AIR. NO REDNESS OR DRAINAGE NOTED. OLD GIA SITE ON LEFT SIDE COVERED WITH BANDAID, SMALL AMOUNT OF OLD DRAINAGE NOTED. PT ON RA. IV INFUSING WITH OUT DIFFICULTY. PT DENIES OTHER NEEDS AT THIS TIME. CALL LIGHT IN REACH.
--- NOTE | 2019-01-28 19:37 | NUR ---
ROUNDED CHARGE. PATIENT IS RESTING IN BED. PATIENT DENIES ANY COMMENTS, QUESTIONS OR CONCERNS. NO NEEDS NOTED. CALL LIGHT IN REACH.
--- NOTE | 2019-01-28 22:11 | NUR ---
EVENING ASSESSMENT COMPLETE. GAUZE DRESSING CDI. EVENING MEDS GIVEN WITHOUT DIFFICULTY. MEDICATED WITH PRN MOTRIN FOR 4/10 ABD PAIN. MINIMAL STABDY ASSIST TO BR TO VOID 500 ML CLEAR YELLOW URINE AND A SMALL LIQUID, GREEN COLORED BM. PT BACK TO BED, KARTHIK WELL. PT HAVING A PM SNACK, NO OTHER REQUESTS AT THIS TIME. CALL LIGHT IN REACH.
--- NOTE | 2019-01-28 23:00 | NUR ---
PT RESTING IN BED WITH EYES CLOSED, RR EVEN AND UNLABORED. CALL LIGHT IN REACH.
--- NOTE | 2019-01-29 01:05 | NUR ---
PT AMB TO BR WITH MINIMAL SBA TO VOID 600 ML CLEAR YELLOW URINE. BACK TO BED, KARTHIK WELL. MEDICATED WITH PRN TYLENOL FOR 6/10 ABD PAIN. PT AGREEABLE WITH PLAN TO ALTERNATE PRN TYLENOL AND MOTRIN THROUGHOUT THE NIGHT TO PREVENT UNCONTROLLED PAIN. GAUZE DRESSING CDI. PT OTHERWISE RESTING WELL, CALL LIGHT WITHIN REACH.
--- NOTE | 2019-01-29 03:33 | NUR ---
PT CALLED REQUESTING PAIN MEDICATION. MEDICATED WITH PRN IV TORADOL FOR 7/10 ABD PAIN PER PT REQUEST. NO OTHER REQUESTS AT THIS TIME.
--- NOTE | 2019-01-29 05:50 | NUR ---
PT OOB TO BR WITH MINIMAL SBA TO VOID AND HAVE EXTRA SMALL LIQUID BM. PT C/O INCREASED PAIN WITH AMBULATION AND GETTING OUT OF BED. PT BACK TO BED, KARTHIK WELL. ASSESSMENT, VS, AND I & O COMPLETE. GAUZE DRESSING OVER STOMA SITE CDI. PT DENIES OTHER NEEDS AT THIS TIME. CALL LIGHT IN REACH.
--- NOTE | 2019-01-29 05:56 | NUR ---
PT SLEPT FAIR THROUGHOUT THE NIGHT. PT MEDICATED WITH IV TORADOL, PO TYLENOL AND MOTRIN, PAIN 4/10 AT THIS TIME. GAUZE OVER STOMA SITE REMAINS CDI. MIDLINE INCISION WELL APPROXIMATED, NO DRAINAGE OR REDNESS NOTED. GIA SITE COVERED WITH BANDAID, SMALL AMOUNT OF OLD DRAINAGE NOTED. BOWEL TONES ACTIVE, PT HAD BM X 2 THIS SHIFT. NO C/O NAUSEA. AMB INDEPENDENTLY IN ROOM, TRANSFERS SELF OOB TO BR. ENCOURAGED TO USE CALL LIGHT. LUNGS CLEAR, DIM IN THE BASES, ON RA.
--- NOTE | 2019-01-29 06:58 | NUR ---
REPORT RECEIVED FROM RODGER MONSON. PT RESTING ON BACK WITH EYES CLOSED. RESPIRATIONS EVEN AND UNLABORED. BED RAILS UP. CALL LIGHT WITHIN REACH. PT ALLOWED TO REST.
--- NOTE | 2019-01-29 07:57 | NUR ---
TOOK PATIENTS BLOOD GLUCOSE IT WAS 98, WILL REPORT TO NURSE
--- NOTE | 2019-01-29 08:39 | NUR ---
MORNING ASSESSMENT AND MEDICATIONS DUE. PT WATCHING TV WITH . PT REPORTS 4/10 PAIN AND REQUESTS MEDICATION "SO IT DOESN'T GET WORSE." SEE MAR FOR MEDICATION GIVEN. ASSESSMENT DONE. MID LINE INCISION EDGES WELL APROXIMATED. DRESSING CHANGE TO STOMA REINCERTION SITE DONE BY PT WHILE THIS RN OBSERVED. PT DEMONSTRATES COMPETENCY WITH DRESSING CHANGE. MODERATE AMOUNT OF YELLOW AND SERIOUSANGUINOUS DRAINGED NOTED ON OLD DRESSING. BANDAID REMAINS OVER OLD GIA SITE WITH MINIMAL AMOUNT OF SHADOWING. LUNG SOUNDS CLEAR. PT DEMONSTRATES USE OF I.S. REACHING 2000ML. PT UP TO AMBULATE IN MIN X2 LAPS AROUND UNIT. PT SITTING ON EDGE OF BED EAING BREAKFAST, TOLERATING WELL. NO ADDITONAL REQUESTS OR COMPLAINTS AT THIS TIME. AT BEDSIDE. CALL LIGHT WITHIN REACH.
--- NOTE | 2019-01-29 09:10 | NUR ---
SPOKE WITH PATIENT AND IN ROOM. PATIENT STATES SHE HAD THE OSTOMY TAKEN DOWN THIS WEEKEND AND SHE IS FEELING GOOD. SHE IS GLAD SHE DOESN'T HAVE TO "DEAL WITH THE BAG" ANYMORE. PATIENT FEELS SHE CAN GO HOME ON OWN WITH NOW. WILL CONTINUE TO FOLLOW NEEDED.
--- NOTE | 2019-01-29 10:25 | NUR ---
THIS RN TO ROOM TO CHECK ON PT. PT RESTING IN BED VISITING WITH FRIENDS AND FMAILY. PT REPORTS 2/10 PAIN AND DENIES NEED FOR PAIN MEDICATION AT THIS TIME. PT ASSISTED WITH ORDERING FOOD FOR LUNCH. PIV SALINE LOCKED PER MD ORDER. NO ADDITIONAL REQUESTS OR COMPLAINTS AT THIS TIME. CALL LIGHT WITHIN REACH.
--- NOTE | 2019-01-29 10:57 | NUR ---
PT UP TO AMBULATE IN MIN, INDEPENDANT, WITH , X1 LAP. NO REQUESTS OR COMPLAINTS AT THIS TIME.
--- NOTE | 2019-01-29 11:19 | NUR ---
PT HAS BEEN UP AMBULATING AND SAID SHE ENJOYED IT. IN SOME PAIN NOW, VISITOR IN RM. LOOKS LIKE DC TOMORROW, EXTENDED A BLESSING. WILL FOLLOW NEEDED
--- NOTE | 2019-01-29 12:08 | NUR ---
NOON ASSESSMENT AND MEDICATION DUE. PT SITTING AT EDGE OF BED, LUNCH JUST ARRIVED. BLOOD SUGAR ASSESSED. 1 UNIT INSULINE GIVEN. ASSESSMENT DONE. MIDLINE INCISION WELL APPROXIMATED. GAUZE DRESSING C/D/I. BANDAID REMOVED FROM GIA SITE, WNL. NO CHANGES FROM THIS AM ASSESSMENT. PT EATING LUNCH, TOLERATING WELL. DENIES NAUSEA. REPORTS 2/10 PAIN AND DENIES NEED FOR PAIN MEDICAITON AT THIS TIME. NO ADDITIONAL REQUESTS OR COMPLAINTS AT THIS TIME. CALL LIGHT WITHIN REACH.
--- NOTE | 2019-01-29 12:50 | NUR ---
THIS RN TO ROOM TO CHECK ON PT. PT DENIES NEED FOR PAIN MEDICAITON AT THIS TIME. PT STATES LUNCH WENT "REALLY WELL." PT DENIES NASUEA. PT WATCHING TV. NO REQUESTS OR COMPLAINTS AT THIS TIME. CALL LIGHT WITHIN REACH.
--- NOTE | 2019-01-29 13:42 | NUR ---
PT CALL LIGHT ON. PT REQUESTS PAIN MEDICATION FOR 5/10 PAIN, "JUST SOMETHING TO TAKE THE EDGE OFF." SEE MAR FOR MEDICATION GIVEN. PT STATES SHE HAS NO ADDITIONAL REQUESTS OR COMPLAINTS AT THIS TIME. PT DENIES NASUEA. CALL LIGHT WITHIN REACH.
--- NOTE | 2019-01-29 16:25 | NUR ---
AFTERNOON ASSESSMENT AND MEDICATION DUE. PT UP TO AMBULATE OUT MAIN MIN TO EQUAL EMPLOYMENT OPPORTUNITY OFFICER DESK AND 1 LAP AROUND UNIT WITH THIS RN. PT INDEPENDANT AND STEADY ON FEET. PT DENIES NAUSEA AND REPORTS PAIN OF 4/10 AFTER AMBULATION. SEE MAR FOR MEDICATION GIVEN. ASSESSMENT DONE. STOMA REDUCTION DRESSING C/D/I. ALL OTHER WOUND EDGES WELL APROXIMATED. LUNG SOUNDS CLEAR. PT REACHES 1750 ON I.S. CBG TAKEN. CALLED FOR CLARIFICATION ON INSULIN ORDERS. NO ANSWER AT THIS TIME. WILL CALL BACK. NO ADDITIONAL REQUESTS OR COMPLAINTS AT THIS TIME. CALL LIGHT WITHIN REACH.
--- NOTE | 2019-01-29 17:00 | NUR ---
CALLED REGARDING INSULIN. NO ANSWER, WILL TRY AGAIN.
--- NOTE | 2019-01-29 17:01 | NUR ---
PT HERE FOR ILEOSTOMY TAKE DOWN. PT INDEPENDANT IN ROOM AND AMBULATING IN HALLS FREQUENTLY. PT TOLERATING 60G CARB DIET WITH NO NAUSEA THIS SHIFT. DRESSING CHANGE DONE BY PT WITH SBA FROM THIS RN THIS SHIFT. PT DEMONSTRATES COMPETENCY WITH DRESSING CHANGE. MID LINE INCISION C/D/I WITH EDGES WELL APROXIMATED THIS SHIFT. OLD GIA DRAIN SITE WNL. 2-5 PAIN THIS SHIFT CONTROLED WITH TYLENOL AND MOTRIN. VOIDING QUANTITY SUFFICIENT. NEW INSULIN ORDERS WITH CBG CHECK AT MEALS AND HS. PT USES CALL LIGHT APPROPRIATLY.
--- NOTE | 2019-01-29 17:14 | NUR ---
DINNER ARRIVED. PTS HOME DOSE OF INSULIN GIVEN. SLIDING SCALE HELD UNTIL MD CAN BE CONSULTED. PT REPORTS 3/10 PAIN. PT DENIES NAUSEA. PT WATCHING TV AND EATING DINNER. NO REQUESTS OR COMPLAINTS AT THIS TIME. CALL LIGHT WITHIN REACH.
--- NOTE | 2019-01-29 18:27 | NUR ---
DR WOMACK CALLED. STATES TO HOLD SLIDING SCALE INSULIN DOES UNTIL THE MORNING BLOOD SUGAR CHECKS. BEGIN SLIDING SCALE IN AM ORDERED. CHARGE NURSE NOTIFIED OF CHANGE OF ORDERS.
--- NOTE | 2019-01-29 18:38 | NUR ---
PATIENT IN BED RESTING. FRESH WATER GIVEN. CALL LIGHT IN REACH. NO FURTHER NEEDS AT THIS TIME.
--- NOTE | 2019-01-29 19:39 | NUR ---
REPORT RECEIVED FROM DAY SHIFT RN. PT LYING IN BED WATCHING TV, ALERT AND ORIENTED. NO REQUESTS AT THIS TIME. CALL LIGHT IN REACH.
--- NOTE | 2019-01-29 22:54 | NUR ---
ASSESSMENT COMPLETE. MIDLINE ABD INCISION WELL APPROXIMATED, OPEN TO AIR. OLD GIA SITE OPEN TO AIR, NO DRAINAGE OR REDNESS NOTED. OLD STOMA SITE COVERED WITH GAUZE DRESSING AND TAPE, NO DRAINAGE NOTED. BOWEL TONES ACTIVE, LUNGS CLEAR. SLIDING SCALE INSULIN NOT GIVEN THIS KIA PT IS TRYING TO TRANSITION BACK TO HOME REGIMENT. MEDICATED WITH PRN MOTRIN FOR 5/10 ABD PAIN. PM SNACK PROVIDED PER PT REQUEST. NO OTHER REQUESTS AT THIS TIME. CALL LIGHT IN REACH.
--- NOTE | 2019-01-30 01:13 | NUR ---
PRN TYLENOL GIVEN FOR 5/10 ABD PAIN. PT UP TO BR WITH NO ASSIST TO VOID 600 ML YELLOW URINE. BACK TO BED, KARTHIK WELL. NO OTHER REQUESTS AT THIS TIME.
--- NOTE | 2019-01-30 04:28 | NUR ---
MEDICATED WITH PRN MOTRIN FOR 4/10 ABD PAIN. PT RESTING IN BED. ASSESSMENT COMPLETE. GAUZE DRESSING OVER STOMA SITE, CDI. MIDLINE INCISION WELL APPROXIMATED, NO REDNESS OR DRAINAGE NOTED. GIA SITE OPEN TO AIR, NO DRAINAGE NOTED. BOWEL TONES ACTIVE, PT PASSING GAS. PT DENIES NAUSEA. NO OTHER NEEDS AT THIS TIME, CALL LIGHT IN REACH.
--- NOTE | 2019-01-30 04:55 | NUR ---
PT RESTED WELL. 4-5/ ABD PAIN CONTROLLED WITH PRN MOTRIN AND TYLENOL. PT INDEPENDENT IN ROOM. SLIDING SCALE INSULIN HELD LAST NOC PT IS TRANSITIONING BACK TO HER HOME REGIMEN. PT KARTHIK 60 GR CC DIET. MIDLINE ABD INCISION WELL APPROXIMATED, NO REDNESS OR DRAINAGE. STOMA SITE COVERED WITH GAUZE DRESS, CDI. GIA SITE OPEN TO AIR, NO DRAINAGE NOTED. VOIDING QS. PT USES CALL LIGHT APPROPRIATELY.
--- NOTE | 2019-01-30 06:47 | NUR ---
MEDICATED PT WITH PRN TYLENOL FOR 4/10 ABD PAIN. BS CHECK COMPLETE, PT WOULD LIKE TO TAKE INSULIN CLOSER TO BREAKFAST TIME. WILL PASS ALONG TO DAY SHIFT RN. NO FURTHER REQUESTS, CALL LIGHT IN REACH.
--- NOTE | 2019-01-30 07:38 | NUR ---
Pt in bed, eyes closed at this time, resp even and non labored. Pt has no notable distress. Personal supplies and call light within reach. No needs at this time.
--- NOTE | 2019-01-30 09:34 | NUR ---
PATIENT RESTING IN BED WITH IN ROOM. PATIENT IS WAITING ON DOCTOR AND WOULD LIKE A SHOWER AFTERWARDS. NO OTHER NEEDS AT THIS TIME.
--- NOTE | 2019-01-30 10:45 | NUR ---
PATIENT UP TO SHOWER. LINENS CHANGED. FRESH ICEWATER GIVEN. IN ROOM RESTING IN CHAIR.
--- NOTE | 2019-01-30 11:33 | NUR ---
PT IN BED WATCHING TV, RESP EVEN AND NON LABORED. PT DENIES NEEDS AT THIS TIME. AT BEDSIDE. NO NEEDS AT THIS TIME.
--- NOTE | 2019-01-30 12:41 | NUR ---
PT RESTING IN BED, AT BS. PT IS READY TO GO! SHE IS HOPING TODAY IS THE DAY. EXTENDED A BLESSING, WILL FOLLOW NEEDED
[2019-01-30] MEDS ORDERED: NICOTINE PATCH1 EAC1 TD (13:20)
[2019-01-30] MEDS ORDERED: IBUPROFEN600 MG PO (13:21)
--- NOTE | 2019-01-31 10:51 | DS ---
[facility] [address], [place] [address] Signed ADMISSION DATE: 01/15/2019 DISCHARGE DATE: 01/30/2019 REASON FOR ADMISSION: This 63-year-old white woman has had 2 weeks of feeling unwell overall. She presented to the emergency room the [employer] hours and was evaluated by Dr. Huff with epigastric and severe left subcostal and left flank pain. Her evaluation in emergency room included a CT scan of the abdomen showing an obvious abscess in the region of the splenic flexure of the colon, not far from the splenic hilum and the tail of the pancreas. She is admitted for further evaluation and care. Other details can be found in Admission History and Physical. Special note, she does have family history of colon cancer in her mother and underwent colonoscopy in the past three years at [facility] showing some polyps. She is a patient of ARIANA Dempsey. OTHER MEDICAL ISSUES: Include dyslipidemia, ongoing smoking, hypertension. PERTINENT PHYSICAL EXAM: GENERAL: An obese white woman, who looked not to be systemically toxic. VITAL SIGNS: Temperature is 98, pulse 66, blood pressure 112/58. ABDOMEN: Obese and soft. There is mild tenderness in the left upper abdomen. There is no sign of ascites. LABORATORY DATA: White count was 14.7, hematocrit 29.9, platelets 687,000. Liver enzymes were normal. Troponin is less than 0.01. Lipase and amylase normal. HOSPITAL COURSE: She was admitted with an abscess quite clearly on evaluation, but uncertain as to its etiology. The original radiology report theorized a pancreaticocolonic fistula, which was quite unlikely as she has never had pancreatitis. Pancreatic duct was not dilated nor inflamed at this time. She underwent a colonoscopy on January 16, 2019, after that to assess if there was a neoplasm in the splenic flexure. There was no such neoplasm identified particularly, but the prep was suboptimal. She was maintained on broad-spectrum antibiotics for the abscess. This was thoght to possibly represent perforated diverticulitis with peridiverticular abscess. Diverticuli had been identified on ct and colonoscopy. A repeat CT scan was performed Electronically Signed By: POPEYE WOMACK MD 01/31/19 1051 PATIENT NAME: CAPRICE AMADOR DISCHARGE SUMMARY DATE OF : 55 REPORT #: [id number] PHYSICIAN: POPEYE WOMACK MD PCP: YOKASTA MILLS REPORT IS CONFIDENTIAL AND NOT TO BE RELEASED WITHOUT AUTHORIZATION [facility] [address], [place] [address] Signed with IV and GI contrast to ascertain that this did not represent a ruptured splenic artery aneurysm or something of that sort. As she has had symptoms for nearly two weeks, possibility of that with thrombosis was considered possible. The study did not confirm such a finding, however. On January 18, 2019, she underwent operative exploration to provide for drainage of the abscess. Drainage of the retroperitoneal and intraabdominal abscess was undertaken. There was a hard mass with profound desmoplastic response in the region of the left transverse colon. Drainage of the retroperitoneal abscess was undertaken, and ultimately segmental resection of the colon was undertaken. Upon opening the dense hard mass in the colonic specimen, is was felt most likely to represent perforated colon cancer with pericolonic abscess. There was no evidence of splenic or pancreatic abnormality. The proximal and distal colonic segments were free of stool and clean and viable so a side to side colocolostomy was performed. A protective loop ileostomy was also formed, considering the anastomosis lay in the area of profound inflammation of the drained abscess area, despite its drainage and irrigation. Postoperatively, she was maintained with as minimal opiate use as possible. The drain that was placed, drained only serosanguineous fluid, no purulence. She was maintained with broad spectrum antibiotics. The Ileostomy began to work rather promptly, but it was difficult to provide an adequate skins/appliance seal. Leakage was symptomatic and significant. This was largely related to location of the ileostomy, which ultimately was found to be in an abdominal skin crease that was not foreseeable at the time of operation due to her significant abdominal obesity. Placement of the ileostomy any higher would have abutted the costal margin and any lower would have been out of view of given her abdominal pannus. Multiple attempts at control of the ileostomy effluent in relation to her wafer and skin was unsuccessful. Consideration was made for takedown of the ileostomy or replacement to a different site. On that basis, a Gastrografin enema was performed showing the colocolostomy to be intact without sign of leakage or other problem. On January 27, 2019, she underwent takedown of the dysfunctional loop ileostomy demonstrating significant skin excoriation locally. Segmental small bowel resection was undertaken with end-to-end hand-sewn anastomosis. The abdominal wall defect was repaired as well. The subcutaneous layer was left open for gauze packing to minimize Electronically Signed By: POPEYE WOMACK MD 01/31/19 1051 PATIENT NAME: CAPRICE AMADOR DISCHARGE SUMMARY DATE OF : 55 REPORT #: [id number] PHYSICIAN: POPEYE WOMACK MD PCP: YOKASTA MILLS REPORT IS CONFIDENTIAL AND NOT TO BE RELEASED WITHOUT AUTHORIZATION [address] [place], [place] [address] Signed chances of wound infection. She had prompt recovery after that, resumption of oral intake promptly and marked improvement of her skin excoriation. The ileostomy site is being packed with plain gauze and will close secondarily. The pathology report ultimately did return confirming perforated adenocarcinoma of the colon. Margins were negative. Retroperitoneal biopsy showed only fibrosis. There was no evidence of carcinomatosis or hepatic metastases. The patient will be discharged home with local wound care performed by herself. We will arrange for a medical oncology consultation with Dr. Obregon as she may be a candidate for adjuvant chemotherapy depending on his judgment. DISCHARGE DIAGNOSES: 1. Perforated splenic flexure, adenocarcinoma of the colon with secondary abscess formation in retroperitoneum and deep abdomen, status post abscess drainage, segmental colon resection, wmae-fv-vwze colocolostomy and protective diverting loop ileostomy. 2. Family history of colon cancer (mother). 3. History of polyps. Last colonoscopy three years ago at [facility]. 4. Smoking and obesity 5. Insulin-dependent diabetes mellitus. 6. Hypertension. 7. 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 FOLLOWUP PLAN: She will return to see me in approximately [address] Obregon before that time. DISCHARGE MEDICATIONS: 1. Nicotine patch 21 mg topically daily #30, refill 4. 2. Ibuprofen 600 mg p.o. q.6 hours p.r.n. pain #30, refill 1. 3. She will continue usual medication sucralfate at bedtime and before meals on empty stomach. 4. NovoLog 70/30, 15 units b.i.d. before meals. 5. Pravastatin 40 mg p.o. bedtime. 6. Glyburide 2.5 mg p.o. with meals. 7. Gabapentin 300 mg 1-3 p.o. at bedtime for restless legs. 8. Carvedilol 25 mg p.o. b.i.d. with meals. 9. Losartan 50 mg p.o. daily. 10. Hydrochlorothiazide 12.5 mg p.o. daily. 11. Sertraline 100 mg p.o. daily. Electronically Signed By: POPEYE WOMACK MD 01/31/19 1051 PATIENT NAME: CAPRICE AMADOR DISCHARGE SUMMARY DATE OF : 55 REPORT #: [id number] PHYSICIAN: POPEYE WOMACK MD PCP: YOKASTA MILLS REPORT IS CONFIDENTIAL AND NOT TO BE RELEASED WITHOUT AUTHORIZATION [address] [address] Signed She is held in abeyance of taking Plavix 75 mg daily. MD CLEMENT Landon/MODL /[id number] cc: MD Rosalio Santiago MD Randall Jarrell, PA Copies: NIELS OBREGON MD, BRUCE WENDLER, SHELDON MD GENE,YOKASTA PA ~ Electronically Signed By: POPEYE WOMACK MD 01/31/19 1051 PATIENT NAME: CAPRICE AMADOR DISCHARGE SUMMARY DATE OF : 55 REPORT #: [id number] PHYSICIAN: POPEYE WOMACK MD PCP: YOKASTA MILLS REPORT IS CONFIDENTIAL AND NOT TO BE RELEASED WITHOUT AUTHORIZATION
--- NOTE | 2019-01-31 14:36 | PATH ---
[facility] [address], [place] [address] Signed SPECIMEN(S): A SEGMENT OF ILEUM SPECIMEN SOURCE: A. SEGMENT OF ILEUM CLINICAL HISTORY: Take down loop ileostomy. FINAL PATHOLOGIC DIAGNOSIS: Ileum, segmental excision (takedown of loop ileostomy): - Focal area of mucosal necrosis, chronic inflammation, edema and hemorrhage with focal acute serositis. - Negative for malignancy and atypia. COMMENT: The patient had a recent segmental excision of the splenic flexure of the colon with diagnosis of mucinous carcinoma with macroscopic perforation present, proximal and distal resection margins free of neoplasm, but with neoplasm penetrating to the radial margin ([id number]), received at [facility] 01/19/2019. CHARI:cml:C2NR MICROSCOPIC EXAMINATION: Histologic sections of all submitted blocks are examined by light microscopy. These findings, together with the gross examination, support the pathologic diagnosis. GROSS DESCRIPTION: The specimen, labeled "RC, segment of ileum," is received in formalin and consists of two small bowel segments that are side by side and have a stapled margin at one end. The opposite end of each segment comes together to an opening that is lined by a 0.4 cm wide strip of graves-brown skin. The segments of small bowel measure 3.2 cm in length by 3.1 cm diameter and 3.4 cm in length by 3.0 cm diameter. Surrounding the specimen is up to 1.4 cm of graves-yellow and lobulated mesentery. The mucosa of the specimen is graves with unremarkable folds. No lesions or lymph nodes are grossly identified. Section Weaver sections are submitted in cassette (A1). AM (under the direct supervision of a pathologist) The Gross Description was prepared using a voice recognition system. The report was reviewed for accuracy; however, sound-alike word errors, addition PATIENT NAME: CAPRICE AMADOR PATHOLOGY DATE OF : 55 REPORT #: [id number] PHYSICIAN: [facility] PCP: YOKASTA MILLS REPORT IS CONFIDENTIAL AND NOT TO BE RELEASED WITHOUT AUTHORIZATION [facility] [address], [place] [address] Signed and/or deletions may occur. If there is any question about this report, please contact Client Services. PERFORMING LABORATORY: The technical component was performed by [facility] [address] (Gut Dropper: Harleen Jeffers MD; CLIA# [id number]). [facility] [address] [address] (Gut Dropper: Jorge Porras MD; CLIA# [id number]). Diagnostician: Jorge Porras MD Pathologist Electronically Signed 01/31/2019 Copies: ~ PATIENT NAME: CAPRICE AMADOR PATHOLOGY DATE OF : 55 REPORT #: [id number] PHYSICIAN: [facility] PCP: YOKASTA MILLS REPORT IS CONFIDENTIAL AND NOT TO BE RELEASED WITHOUT AUTHORIZATION
== END 2019-01-30 14:35 | disposition home or self-care (01) | DRG 329 ==
LOC: ED 23:28 → MS 23:30 → CCU 01-18 20:40 → MS 01-19 10:10
PROVIDERS: ADMIT Surgery
PROC: 0DJD8ZZ Inspection of Lower Intestinal Tract, Via Natural or Artificial Opening Endoscopic (ICD-10-PCS; 2019-01-16)
PROC: 30233N1 Transfusion of Nonautologous Red Blood Cells into Peripheral Vein, Percutaneous Approach (ICD-10-PCS; 2019-01-16)
PROC: 0DBL0ZZ Excision of Transverse Colon, Open Approach (ICD-10-PCS; principal; 2019-01-18 14:00)
PROC: 0D1B0Z4 Bypass Ileum to Cutaneous, Open Approach (ICD-10-PCS; 2019-01-18 14:00)
PROC: 0DBB0ZZ Excision of Ileum, Open Approach (ICD-10-PCS; 2019-01-27)
PROC: 3E0T3BZ Introduction of Anesthetic Agent into Peripheral Nerves and Plexi, Percutaneous Approach (ICD-10-PCS; 2019-01-27)
DX: C18.4 Malignant neoplasm of transverse colon (principal); K63.1 Perforation of intestine (nontraumatic); K63.0 Abscess of intestine; K94.13 Enterostomy malfunction; K57.30 Diverticulosis of large intestine without perforation or abscess without bleeding; I10 Essential (primary) hypertension; F17.200 Nicotine dependence, unspecified, uncomplicated; E78.5 Hyperlipidemia, unspecified; I25.2 Old myocardial infarction; E11.9 Type 2 diabetes mellitus without complications; D63.0 Anemia in neoplastic disease; F41.9 Anxiety disorder, unspecified; E66.9 Obesity, unspecified; G89.18 Other acute postprocedural pain; Z80.0 Family history of malignant neoplasm of digestive organs; Z95.5 Presence of coronary angioplasty implant and graft; Z88.0 Allergy status to penicillin; Z79.02 Long term (current) use of antithrombotics/antiplatelets; Z79.4 Long term (current) use of insulin; Z79.899 Other long term (current) drug therapy; Z68.32 Body mass index [BMI] 32.0-32.9, adult
CPT/HCPCS: 00840; 36415; 36430; 71045; 71046; 74160; 74177; 74270; 76942; 80048; 80053; 82150; 82247; 82465; 83615; 83690; 83735; 84100; 84478; 84484; 84550; 85025; 86850; 86900; 86901; 86920; 87040; 87070; 87075; 87076; 87077; 87185; 87205; 88305; 88309; 88341; 88342; 93005; 93010; 94760; 96365; 96368; 96375; 96376; 99285-25; 99406; G0378; J0131; J0330; J0360; J1100; J1200; J1644; J1720; J1815; J1885; J1956; J2185; J2250; J2270; J2405; J2550; J2704; J2765; J2795; J3010; J3475; J3480; J7030; J7120; J7121; P9016; Q9967

== ENCOUNTER 2019-04-09 08:24 | Inpatient (IN) | payer OTHER ==
[~2019-04-09] VITALS: Ht 165.1 cm; Wt 83.9 kg
--- NOTE | ~2019-04-09 | DS ---
[facility] [address], [place] [address] Draft ADMISSION DATE: 04/09/2019 DISCHARGE DATE: 04/13/2019 REASON FOR ADMISSION: This 63-year-old white woman is known to me from the past. In January, she suffered a left upper abdominal quadrant abscess, which was found related to perforated colon cancer. She underwent segmental resection of the upper portion of left colon and mid transverse colon with primary anastomosis and a protective loop ileostomy. On postoperative day 8, she underwent takedown of loop ileostomy without complication, was discharged home, doing well. She presented to the emergency room on the day of admission, April 09, 2019, suffering onset of right-sided abdominal pain 2 nights previously. The pain was unrelenting and worsened with movement. She was thoroughly evaluated by Dr. Yan and gallbladder ultrasound performed showed a normal-appearing gallbladder. No findings of concern. A CT scan was then performed, which showed peculiar findings of marked inflammatory change in the region of the ileoileostomy (takedown of loop ileostomy) as well as numerous diverticula of the remaining left and sigmoid colon and small air bubbles outside the area of the loop ileostomy and apparent possible small bubbles near the left colon and one lucency within the spleen. She was admitted for further evaluation and care. Of special note, she does have diabetes, which is insulin dependent. PERTINENT PHYSICAL EXAMINATION: GENERAL: Showed an obese white woman accompanied by her son and . She did not look systemically toxic. HEENT: Mucous membranes are dry. NECK: Trachea midline. CHEST: Clear. HEART: Regular without murmur. ABDOMEN: Obese with a well-healed midline incision and a small right upper quadrant ileostomy incision well healed. There is no crepitus of the skin. No erythema of the skin. She had marked tenderness in the right subcostal area. The left lower abdomen had mild tenderness, but not much. LABORATORY DATA: Her white count was 9.2, hematocrit 36.4, platelets 310,000. Electrolytes are normal. Chem profile essentially normal. CT was reviewed with Dr. Velez. HOSPITAL COURSE: PATIENT NAME: CAPRICE AMADOR DISCHARGE SUMMARY DATE OF : 55 REPORT #: [id number] PHYSICIAN: POPEYE WOMACK MD PCP: YOKASTA MILLS REPORT IS CONFIDENTIAL AND NOT TO BE RELEASED WITHOUT AUTHORIZATION [facility] [address], [place] [address] Draft Quite uncertain was the underlying diagnosis, but with free abdominal air or perienteric bubbles, concern was maintained for possible enteric leak of course. Broad-spectrum antibiotics were initiated and examination showed her to have no tenderness except in the right subcostal area, which was quite marked. There was no obvious mass on examination. A CCK HIDA test was performed, which showed an ejection fraction of 0%. On that basis, she was considered likely to have acute acalculous cholecystitis. On that basis, she underwent laparoscopy on April 10, 2019. Laparoscopy demonstrated a fair number of adhesions as might be expected. A gallbladder, which was tense and distended and subacutely inflamed. There was no sign of fluid collection or actual abscess. There was marked inflammatory change of a small bowel loop nearby and the enteroenterostomy had a firm with somewhat gelatinous cocoon around it. Whether this was normal or not was uncertain. On that basis, conversion to open operation was undertaken. She was found to have fibrinous peel around the area of the previous enteroenterostomy, but no sign of renard perforation. Segmental resection of this was undertaken with end-to-end anastomosis. Additionally, the cholecystectomy was performed without cholangiogram. The appendix had fecaliths without sign of acute inflammation. Appendectomy was also performed. Additionally, she had an inflamed appendix epiploica. Whether this was secondary to an inflammatory process or torsion was uncertain. It was excised as well. A drain was placed in the left lower quadrant. She had numerous palpable diverticula of the sigmoid and left colon, but no obvious perforation or abscess in that area. She was maintained on broad-spectrum antibiotics. She had a fair amount of pain postoperatively as a TAP block was not performed and was started on a HAND GLASS CUTTER device, which was beneficial. She was properly advanced to a liquid diet and ultimately full and subsequently solid diet, which she tolerated well. She had several bowel movements prior to time of discharge. Incision was healing well. Her preoperative symptoms were entirely resolved. It is quite uncertain as to the ultimate etiology of her problem whether there was a subclinical leak of the enteroenterostomy or it was simply acalculous cholecystitis. In any case, she is now doing well. FOLLOWUP PLAN: She is to return to see me in approximately a month. She will lift no more than 10 pounds for a month. She is permitted and encouraged to shower daily and to walk. She will resume her usual diabetes diet and diabetic regimen. DISCHARGE MEDICATIONS: 1. Nicotine patch 21 mg daily, #30, refill two. 2. Percocet 7.5/325 1-2 p.o. q.4 hours as needed for pain, #14. 3. Tylenol Extra Strength 500 mg tablets two tablets p.o. q.6 hours as needed for pain, #60, refill two. 4. Bactrim DS one tablet p.o. b.i.d., #10, no refill. PATIENT NAME: CAPRICE AMADOR DISCHARGE SUMMARY DATE OF : 55 REPORT #: [id number] PHYSICIAN: POPEYE WOMACK MD PCP: YOKASTA MILLS REPORT IS CONFIDENTIAL AND NOT TO BE RELEASED WITHOUT AUTHORIZATION [facility] [address], [place] [address] Draft 5. She will continue with Carafate in 10 mL suspension a.c. and h.s. on empty stomach. 6. NovoLog mix 70/30, 15 units subcutaneous before meals b.i.d. 7. Pravastatin 40 mg p.o. at bedtime as needed for cholesterol issues. 8. Glyburide 2.5 mg p.o. daily with breakfast. 9. Gabapentin 300 mg 2-3 caps oral at bedtime for restless legs. 10. Carvedilol 25 mg p.o. b.i.d. with meals. 11. Losartan 50 mg p.o. daily for hypertension. 12. Hydrochlorothiazide 12.5 mg p.o. daily for peripheral swelling. 13. Aspirin 81 mg p.o. daily. 14. Flonase Allergy relief one spray each nostril daily as needed for headaches. DISCHARGE DIAGNOSES: 1. Severe acute right upper quadrant pain with acalculous cholecystitis status post open cholecystectomy. 2. Inflamed and edematous ileoileostomy from prior loop ileostomy takedown, January 2019, without obvious perforation, status post resection and anastomosis. 3. Placement of drain of abdomen. 4. Appendectomy for appendix with multiple fecaliths. 5. Taenia epiploica excision (torsed and inflamed). 6. Diabetes mellitus, insulin dependent. 7. Hypertension. 8. History of smoking. 9. Peptic disease. 10. Obesity. 11. History of perforated splenic flexure, colon cancer status post resection with primary anastomosis and diverting loop ileostomy with takedown of loop ileostomy eight days postoperatively (January 2019). MD CLEMENT Landon/MODL /[id number] cc: ARIANA Dempsey MD PATIENT NAME: CAPRICE AMADOR DISCHARGE SUMMARY DATE OF : 55 REPORT #: [id number] PHYSICIAN: POPEYE WOMACK MD PCP: YOKASTA MILLS REPORT IS CONFIDENTIAL AND NOT TO BE RELEASED WITHOUT AUTHORIZATION [facility] [address] [place] [id number] Draft Copies: YOKASTA MILLS WILLIAM S MD ~ PATIENT NAME: CAPRICE AMADOR DISCHARGE SUMMARY DATE OF : 55 REPORT #: [id number] PHYSICIAN: POPEYE WOMACK MD PCP: YOKASTA MILLS REPORT IS CONFIDENTIAL AND NOT TO BE RELEASED WITHOUT AUTHORIZATION
--- OUTSIDE RECORDS SUMMARY | ~2019-04-09 | XMS | Encounter Summary ---
Demographics + + + | Address | [address] | | | [place] [address] | + + + | Home Phone | | + + + | Preferred Language | Unknown | + + + | Marital Status | | + + + | Alevism Affiliation | Unknown | + + + | Race | Unknown | + + + | Ethnic Group | Unknown | + + + Author + + + | Author | [facility] | | | and [place] | + + + | Organization | [facility] | | | and [place] | + + + | Address | Unknown | + + + | Phone | Unavailable | + + + Support + + +---------+ + | Name | Relationship | Address | Phone | + + +---------+ + | James Hurt | ECON | Unknown | | + + +---------+ + Care Team Providers + +------+ + | Care Bone Drier Name | Role | Phone | + +------+ + PCP | Unavailable | + +------+ + Encounter Details +--------+ + + + + | Date | Type | Department | Care Team | Description | +--------+ + + + + | 01/25/ | Hospital | [facility] | Dc Munoz | Excessive | | 2002 - | Encounter | [facility] | Alex [phone] | menstruation | | | | [place] | (Fax) | | | 01/27/ | | [place] | | | | 2002 | | [address] | | | | | | [phone] | | | +--------+ + + + + Social History + +-------+ +--------+------+ | Tobacco Use | Types | Packs/Day | Years | Date | | | | | Used | | + +-------+ +--------+------+ | Never Assessed | | | | | + +-------+ +--------+------+ + + + | Sex Assigned at | Date Recorded | | | | + + + | Not on file | | + + + + + + + | Job Start Date | Occupation | Industry | + + + + | Not on file | Not on file | Not on file | + + + + + + + + | Travel History | Travel Start | Travel End | + + + + + + | No recent travel history available. | + + documented as of this encounter Plan of Treatment Not on filedocumented as of this encounter Visit Diagnoses + + | Diagnosis | + + | Excessive menstruation Excessive or frequent menstruation | + + documented in this encounter"
--- OUTSIDE RECORDS SUMMARY | ~2019-04-09 | XMS | Encounter Summary ---
Demographics + + + | Address | [address] | | | [place] [address] | + + + | Home Phone | | + + + | Preferred Language | Unknown | + + + | Marital Status | | + + + | Sabianist Affiliation | Unknown | + + + | Race | Unknown | + + + | Ethnic Group | Unknown | + + + Author + + + | Author | [facility] | | | and [place] | + + + | Organization | [facility] | | | and [place] [...] Team Providers + +------+ + | Care Solutions Specialist Name | Role | Phone | + +------+ + PCP | Unavailable | + +------+ + Encounter Details +--------+ + + + + | Date | Type | Department | Care Team | Description | +--------+ + + + + | 05/28/ | Hospital | [facility] | Conversion | | | 2017 | Encounter | [facility] | Transaction, | | | | | CLINIC [address] | Provider Unknown | | | | | [place] | | | | | | [address] | (Fax) | | | | | [phone] | | | +--------+ + + + [...] + + documented as of this encounter Last Filed Vital Signs + + + + + | Vital Sign | Reading | Time Taken | Comments | + + + + + | Blood Pressure | 116/56 | 05/28/2016 4:02 PM | | | | | PST | | + + + + + | Pulse | 72 | 05/28/2016 4:02 PM | | | | | PST | | + + + + + | Temperature | - | - | | + + + + + | Respiratory Rate | - | - | | + + + + + | Oxygen Saturation | - | - | | + + + + + | Inhaled Oxygen | - | - | | | Concentration | | | | + + + + + | Weight | 86.8 kg (191 lb 5.8 | 05/28/2016 4:02 PM | | | | oz) | PST | | + + + + + | Height | 165.1 cm (5' 5") | 05/28/2016 4:02 PM | | | | | PST | | + + + + + | Body Mass Index | 31.84 | 05/28/2016 4:02 PM | | | | | PST | | + + + + + documented in this encounter Plan of Treatment Not on filedocumented as of this encounter Procedures + +--------+ + + + | Procedure Name | Priori | Date/Time | Associated Diagnosis | Comments | | | ty | | | | + +--------+ + + + | BASIC METABOLIC | Routin | 05/28/2016 | | Results for this | | PANEL | e | 4:21 PM | | procedure are in the | | | | PST | | results section. | + +--------+ + + + documented in this encounter Results Basic Metabolic Panel (05/28/2016 4:21 PM PST) + + + + + + | Component | Value | Ref Range | Performed | Pathologist | | | | | At | Signature | + + + + + + | Na | 142Comment: Testing | 135 - 145 | EXTERNAL | | | | performed at [facility] | mmol/L | LAB | | | | [address] [facility];[place], [place] | | | | | | [address] | | | | + + + + + + | K | 4.1Comment: Testing | 3.5 - 4.9 | EXTERNAL | | | | performed at [facility];[address] | mmol/L | LAB | | | | [address];[place] | | | | | | [address] | | | | + + + + + + | Cl | 106Comment: Testing | 99 - 109 mmol/L | EXTERNAL | | | | performed at [facility];[address] | | LAB | | | | [address];[place] | | | | | | [address] | | | | + + + + + + | CO2 | 27Comment: Testing | 23 - 32 mmol/L | EXTERNAL | | | | performed at [facility];[address] | | LAB | | | | [address];[place] | | | | | | [address] | | | | + + + + + + | Anion Gap | 12Comment: Testing | 5 - 20 mmol/L | EXTERNAL | | | | performed at [facility];[address] | | LAB | | | | [address];[place] | | | | | | [address] | | | | + + + + + + | Glucose, | 152 (H)Comment: Testing | 65 - 99 mg/dL | EXTERNAL | | | Fasting | performed at [facility];[address] | | LAB | | | | [address];[place] | | | | | | [address] | | | | + + + + + + | BUN | 14Comment: Testing | 8 - 25 mg/dL | EXTERNAL | | | | performed at [facility];[address] | | LAB | | | | [address];[place] | | | | | | [address] | | | | + + + + + + | Creatinine | 0.79Comment: Testing | 0.50 - 1.00 | EXTERNAL | | | | performed at [facility];888 | mg/dL | LAB | | | | [address];[place] | | | | | | [address] | | | | + + + + + + | BUN/Creatin | 18Comment: Testing | | EXTERNAL | | | ine Ratio | performed at [facility];[address] | | LAB | | | | [address];[place] | | | | | | [address] | | | | + + + + + + | Calcium | 9.3Comment: Testing | 8.5 - 10.5 | EXTERNAL | | | | performed at [facility];888 | mg/dL | LAB | | | | [address];[place] | | | | | | [address] | | | | + + + + + + | Estimated | >60Comment: GFR <60: | mL/min/1.73m2 | EXTERNAL | | | GFR | CHRONIC KIDNEY DISEASE, | | LAB | | | | IF FOUND OVER A 3 MONTH | | | | | | PERIOD.GFR <15: KIDNEY | | | | | | FAILURE.FOR | | | | | | AMERICANS, MULTIPLY THE | | | | | | CALCULATED GFR BY | | | | | | 1.210.Testing performed | | | | | | at [facility];[address] | | | | | | [address];[place] [address] | | | | + + + + + + + + | Specimen | + + | Blood specimen | | (specimen) | + + + +---------+ + + | Performing | Address | City/State/Zipcode | Phone Number | | Organization | | | | + +---------+ + + | EXTERNAL LAB | | | | + +---------+ + + documented in this encounter Visit Diagnoses Not on filedocumented in this encounter
--- OUTSIDE RECORDS SUMMARY | ~2019-04-09 | XMS | Clinical Summary ---
Demographics + + + | Address | [address] | | | [place] [address] | + + + | Home Phone | | + + + | Preferred Language | Unknown | + + + | Marital Status | | + + + | Amish Affiliation | Unknown | + + + | Race | Unknown | + + + | Ethnic Group | Unknown | + + + Author + + + | Author | [facility] [place] | | | and [place] | + + + | Organization | [facility] | | | and [place] | [...] Team Providers + +------+ + | Care Commercial Collections Specialist Name | Role | Phone | + +------+ + | Ziyad Liang | PCP | | + +------+ + Allergies Not on File Medications Not on file Active Problems Not on file Immunizations + + + + | Name | Administration Dates | Next Due | + + + + | INFLUENZA PF | 03/06/2016 | | | QUAD(PED/ADOL/ADULT) | | | | ,PSKT or VIAL | | | + + + + Family History + +------+ + + | Relation | Name | Status | Comments | + +------+ + + | Father | | | | + +------+ + + | Mother | | | | + +------+ + + Social History + +-------+ +--------+------+ | Tobacco Use | Types | Packs/Day | Years | Date | | | | | Used | | + +-------+ +--------+------+ | Current Every Day | | 0.25 | | | | Smoker | | | | | + +-------+ [...] recent travel history available. | + + Last Filed Vital Signs + + + + + | Vital Sign | Reading | Time Taken | Comments | + + + + + | Blood Pressure | 134/69 | 07/27/2016 11:01 AM | | | | | PDT | | + + + + + | Pulse | 67 | 07/27/2016 11:01 AM | | | | | PDT | | + + + + + | Temperature | 36.2 C (97.1 F) | 06/01/2016 1:50 PM | | | | | PST | | + + + + + | Respiratory Rate | 14 | 06/01/2016 1:50 PM | | | | | PST | | + + + + + | Oxygen Saturation | - | - | | + + + + + | Inhaled Oxygen | - | - | | | Concentration | | | | + + + + + | Weight | 86.2 kg (190 lb) | 07/27/2016 11:01 AM | | | | | PDT | | + + + + + | Height | 165.1 cm (5' 5") | 07/27/2016 11:01 AM | | | | | PDT | | + + + + + | Body Mass Index | 31.62 | 07/27/2016 11:01 AM | | | | | PDT | | + + + + + Plan of Treatment + + + + + | Health Maintenance | Due Date | Last Done | Comments | + + + + + | Vaccine: | | | | | Dtap/Tdap/Td (1 - | 7 | | | | Tdap) | | | | + + + + + | Cervical Cancer | | | | | Screening (Pap) | 6 | | | + + + + + | Vaccine: Zoster (1 | | | | | of 2) | 6 | | | + + + + + | Breast Cancer | | 02/21/2013 | | | Screening | 5 | | | + + + + + | Vaccine: Influenza | | 03/06/2016 | | | (#1) | 9 | | | + + + + + Results Not on filefrom Last 3 Months Insurance + +--------+ +--------+ +---------+--------+ | Payer | Benefi | Subscriber | Effect | Phone | Address | Type | | | t Plan | ID | michelle | | | | | | / | | Dates | | | | | | Group | | | | | | + +--------+ +--------+ +---------+--------+ | [employer] | [employer] | [id number] | 02/19/ | [phone] | | [employer] | | MEDICAID HMO | HEALTH | | 2019-P | 1 | | id | | | MDCD | | resent | | | | | | HMO [place] | | | | | | + +--------+ +--------+ +---------+--------+ + +--------+ +--------+ + + | Guarantor Name | Accoun | Relation to | Date | Phone | Billing Address | | | t Type | Patient | of | | | | | | | | | | + +--------+ +--------+ + + | Whit Hurt | Person | Self [birth year] [address] | | | al/Fam | | 1956 | [phone] | [place] [address] | | | sammi | | | 2 (Home) | | + +--------+ +--------+ + +
--- OUTSIDE RECORDS SUMMARY | ~2019-04-09 | XMS | Encounter Summary ---
Demographics + + + | Address | [address] | | | [place] [address] | + + + | Home Phone | | + + + | Preferred Language | Unknown | + + + | Marital Status | | + + + | Zoroastrian Affiliation | Unknown | + + + | Race | Unknown | + + + | Ethnic Group | Unknown | + + + Author + + + | Author | [facility] | | | and [place] | + + + | Organization | [facility] | | | and [place] [...] Team Providers + +------+ + | Care Retail Marketing Executive Name | Role | Phone | + +------+ + PCP | Unavailable | + +------+ + Encounter Details +--------+ + + + + | Date | Type | Department | Care Team | Description | +--------+ + + + + | 05/26/ | Emergency | [facility] | Vinh Baker, | Acute abdominal | | 2013 - | | [facility] | MD Amaris THOMSON | pain; Acute | | | | EMERGENCY CENTER | [place] [address] | gastroenteritis | | 05/27/ | | [address] | [phone] | | | 2013 | | [place], [place] | | | | | | [address] | | | | | | [phone] | | | +--------+ + + + [...] | + +--------+ + + + | CT ABDOMEN PELVIS WO | Routin | 05/27/2013 | | Results for this | | CONTRAST | e | 12:05 AM | | procedure are in the | | | | PST | | results section. | + +--------+ + + + | EXTERNAL LAB: CBC | Routin | 05/26/2013 | | Results for this | | | e | 11:22 PM | | procedure are in the | | | | PST | | results section. | + +--------+ + + + | LIPASE | Routin | 05/26/2013 | | Results for this | | | e | 11:22 PM | | procedure are in the | | | | PST | | results section. | + +--------+ + + + | COMPREHENSIVE | Routin | 05/26/2013 | | Results for this | | METABOLIC PANEL | e | 11:22 PM | | procedure are in the | | | | PST | | results section. | + +--------+ + + + documented in this encounter Results CT Abdomen Pelvis wo Contrast (05/27/2013 12:05 AM PST) + + | Specimen | + + | | + + + + + | Impressions | Performed At | + + + | Negative noncontrast CT of the abdomen and pelvis. The kidneys | | | demonstrate no stones or hydronephrosis. No evidence of bowel | | | obstruction or appendicitis. There is sigmoid colon diverticulosis | | | without evidence of diverticulitis. [facility] Electronically | | | signed by Jose Nava MD on May 27 2013 12:23AM SITE ID: [id number] | | + + + + + + | Narrative | Performed At | + + + | EXAM: CT ABDOMEN AND PELVIS (CT KUB) EXAM DATE: 05/27/2013 12:05 | | | AM. CLINICAL HISTORY: Abdominal pain. COMPARISONS: None. | | | TECHNIQUE: Routine axial helical CT imaging was performed through the | | | abdomen and pelvis without IV contrast. Reconstructions: Coronal. | | | FINDINGS: Lung Bases: Normal. Right Kidney/Ureter: No stones, | | | hydronephrosis, or hydroureter. No perinephric fat stranding. Left | | | Kidney/Ureter: No stones, hydronephrosis, or hydroureter. No | | | perinephric fat stranding. Other Solid Organs: Noncontrast images | | | of the solid organs are grossly unremarkable. Gallbladder/Bile | | | Ducts: Unremarkable. Peritoneal Cavity: No free fluid, free air or | | | renard adenopathy. Bowel is grossly unremarkable. Pelvic Organs: | | | No bladder stones or wall thickening. Noncontrast images of the | | | visualized pelvic organs are unremarkable. Vasculature: No | | | aneurysms. There are atheromatous calcifications of the aorta and | | | branch vessels. Other: Small fat-containing periumbilical hernia | | | without evidence of associated inflammation. | | + + + + + | Procedure Note | + + | Niraj Lepe Conversion - 11/24/2018 8:21 PM PDT EXAM:CT ABDOMEN AND PELVIS (CT KUB) | | EXAM DATE: 05/27/2013 12:05 AM. CLINICAL HISTORY: Abdominal pain. COMPARISONS: None. | | TECHNIQUE:Routine axial helical CT imaging was performed through the abdomen and pelvis | | without IV contrast. Reconstructions: Coronal. FINDINGS:Lung Bases: Normal. Right | | Kidney/Ureter: No stones, hydronephrosis, or hydroureter. No perinephric fat stranding. | | Left Kidney/Ureter: No stones, hydronephrosis, or hydroureter. No perinephric fat | | stranding. Other Solid Organs: Noncontrast images of the solid organs are grossly | | unremarkable. Gallbladder/Bile Ducts: Unremarkable. Peritoneal Cavity: No free fluid, | | free air or renard adenopathy. Bowel is grossly unremarkable. Pelvic Organs: No bladder | | stones or wall thickening. Noncontrast images of the visualized pelvic organs are | | unremarkable. Vasculature: No aneurysms. There are atheromatous calcifications of the | | aorta and branch vessels. Other: Small fat-containing periumbilical hernia without | | evidence of associated inflammation. IMPRESSION: Negative noncontrast CT of the abdomen | | and pelvis. The kidneys demonstrate no stones or hydronephrosis. No evidence of bowel | | obstruction or appendicitis. There is sigmoid colon diverticulosis without evidence of | | diverticulitis. [facility] Electronically signed by Jose Nava MD on May 27 2013 | | 12:23AM SITE ID: [id number] | |Left Kidney/Ureter: No stones, hydronephrosis, or hydroureter. No perinephric fat stranding . | | | |Other Solid Organs: Noncontrast images of the solid organs are grossly unremarkable. | | | |Gallbladder/Bile Ducts: Unremarkable. | | | |Peritoneal Cavity: No free fluid, free air or renard adenopathy. Bowel is grossly unremarkab le. | | | |Pelvic Organs: No bladder stones or wall thickening. Noncontrast images of the visualized p elvic organs are unremarkable. | | | |Vasculature: No aneurysms. There are atheromatous calcifications of the aorta and branch ve ssels. | | | |Other: Small fat-containing periumbilical hernia without evidence of associated inflammatio n. | | | |IMPRESSION: | | | |Negative noncontrast CT of the abdomen and pelvis. The kidneys demonstrate no stones or hyd ronephrosis. No evidence of bowel obstruction or appendicitis. There is sigmoid colon divert iculosis without evidence of diverticulitis. | | | |[facility] | | | | Electronically signed by Jose Nava MD on May 27 2013 12:23AM SITE ID: [id number] | + + External Lab: [facility] (05/26/2013 11:22 PM PST) + + + + + + | Component | Value | Ref Range | Performed | Pathologist | | | | | At | Signature | + + + + + + | WBC | 14.0 (H)Comment: Testing | 3.8 - 11.0 K/uL | EXTERNAL | | | | performed at [facility];[address] | | LAB | | | | [address];[place] | | | | | | [address] | | | | + + + + + + | RED CELL | 5.11 (H)Comment: Testing | 3.70 - 5.10 | EXTERNAL | | | COUNT | performed at [facility];[address] | M/uL | LAB | | | | [address];[place] | | | | | | [address] | | | | + + + + + + | Hgb | 15.9 (H)Comment: Testing | 11.3 - 15.5 | EXTERNAL | | | | performed at [facility];[address] | g/dL | LAB | | | | [address];[place] | | | | | | [address] | | | | + + + + + + | Hematocrit, | 47.4 (H)Comment: Testing | 34.0 - 46.0 % | EXTERNAL | | | POC | performed at [facility];[address] | | LAB | | | | [address];[place] | | | | | | [address] | | | | + + + + + + | MCV | 92.7Comment: Testing | 80.0 - 100.0 fl | EXTERNAL | | | | performed at [facility];[address] | | LAB | | | | [address];[place] | | | | | | [address] | | | | + + + + + + | MCH | 31.1Comment: Testing | 27.0 - 34.0 pg | EXTERNAL | | | | performed at [facility];[address] | | LAB | | | | [address];[place] | | | | | | [address] | | | | + + + + + + | MCHC | 33.6Comment: Testing | 32.0 - 35.5 | EXTERNAL | | | | performed at [facility];[address] | g/dL | LAB | | | | [address];[place] | | | | | | [address] | | | | + + + + + + | RDW-CV | 43.3Comment: Testing | 37 - 53 fl | EXTERNAL | | | | performed at [facility];[address] | | LAB | | | | [address];[place] | | | | | | [address] | | | | + + + + + + | Platelet | 354Comment: Testing | 150 - 400 K/uL | EXTERNAL | | | Count | performed at [facility];[address] | | LAB | | | Plasma | [address];[place] | | | | | | [address] | | | | + + + + + + | MPV | 8.5Comment: Testing | fl | EXTERNAL | | | | performed at [facility];[address] | | LAB | | | | [address];[place] | | | | | | [address] | | | | + + + + + + | Differentia | AUTOMATEDComment: | | EXTERNAL | | | l Type | Testing performed at | | LAB | | | | [facility];[address];[place] [address] | | | | + + + + + + | % Segmented | 79.0Comment: Testing | % | EXTERNAL | | | | performed at [facility];[address] | | LAB | | | Neutrophils | [address];[place] | | | | | | [address] | | | | + + + + + + | % | 15.5Comment: Testing | % | EXTERNAL | | | Lymphocytes | performed at [facility];[address] | | LAB | | | | [address];[place] | | | | | | [address] | | | | + + + + + + | % Monocytes | 4.9Comment: Testing | % | EXTERNAL | | | | performed at [facility];[address] | | LAB | | | | [address];[place] | | | | | | [address] | | | | + + + + + + | % | 0.4Comment: Testing | % | EXTERNAL | | | Eosinophils | performed at [facility];[address] | | LAB | | | | [address];[place] | | | | | | [address] | | | | + + + + + + | % Basophils | 0.2Comment: Testing | % | EXTERNAL | | | | performed at [facility];[address] | | LAB | | | | [address];[place] | | | | | | [address] | | | | + + + + + + | Absolute | 11.1 (H)Comment: Testing | 1.9 - 7.4 K/uL | EXTERNAL | | | Segmented | performed at [facility];[address] | | LAB | | | Neutrophils | [address];[place] | | | | | | [address] | | | | + + + + + + | Absolute | 2.2Comment: Testing | 1.0 - 3.9 K/uL | EXTERNAL | | | Lymphocytes | performed at [facility];[address] | | LAB | | | | [address];[place] | | | | | | [address] | | | | + + + + + + | Absolute | 0.7Comment: Testing | 0 - 0.8 K/uL | EXTERNAL | | | Monocytes | performed at [facility];[address] | | LAB | | | | [address];[place] | | | | | | [address] | | | | + + + + + + | Absolute | 0.1Comment: Testing | 0 - 0.5 K/uL | EXTERNAL | | | Eosinophils | performed at [facility];[address] | | LAB | | | | [address];[place] | | | | | | [address] | | | | + + + + + + | Absolute | 0.0Comment: Testing | 0 - 0.1 K/uL | EXTERNAL | | | Basophils | performed at [facility];[address] | | LAB | | | | [address];[place] | | | | | | [address] | | | | + + + + + + + + | Specimen | + + | Blood specimen | | (specimen) | + + + +---------+ + + | Performing | Address | City/State/Zipcode | Phone Number | | Organization | | | | + +---------+ + + | EXTERNAL LAB | | | | + +---------+ + + Lipase (05/26/2013 11:22 PM PST) + + + + + + | Component | Value | Ref Range | Performed | Pathologist | | | | | At | Signature | + + + + + + | Lipase | 348Comment: Testing | 73 - 393 U/L | EXTERNAL | | | | performed at [facility];[address] | | LAB | | | | [address], [place] | | | | | | [address] | | | | + + + + + + + + | Specimen | + + | Blood specimen | | (specimen) | + + + +---------+ + + | Performing | Address | City/State/Zipcode | Phone Number | | Organization | | | | + +---------+ + + | EXTERNAL LAB | | | | + +---------+ + + Comprehensive Metabolic Panel (05/26/2013 11:22 PM PST) + + + + + + | Component | Value | Ref Range | Performed | Pathologist | | | | | At | Signature | + + + + + + | Na | 138Comment: Testing | 135 - 143 | EXTERNAL | | | | performed at [facility];[address] | mmol/L | LAB | | | | [address];[place] | | | | | | [address] | | | | + + + + + + | K | 3.8Comment: Testing | 3.5 - 4.9 | EXTERNAL | | | | performed at [facility];[address] | mmol/L | LAB | | | | [address];[place] | | | | | | [address] | | | | + + + + + + | Cl | 104Comment: Testing | 99 - 109 mmol/L | EXTERNAL | | | | performed at [facility];[address] | | LAB | | | | [address];[place] | | | | | | [address] | | | | + + + + + + | CO2 | 26Comment: Testing | 23 - 32 mmol/L | EXTERNAL | | | | performed at [facility];[address] | | LAB | | | | [address];[place] | | | | | | [address] | | | | + + + + + + | Anion Gap | 11Comment: Testing | 5 - 20 mmol/L | EXTERNAL | | | | performed at [facility];[address] | | LAB | | | | [address];[place] | | | | | | [address] | | | | + + + + + + | Glucose, | 329 (H)Comment: Testing | 65 - 99 mg/dL | EXTERNAL | | | Fasting | performed at [facility];[address] | | LAB | | | | [address];[place] | | | | | | [address] | | | | + + + + + + | BUN | 11Comment: Testing | 8 - 25 mg/dL | EXTERNAL | | | | performed at [facility];[address] | | LAB | | | | [address];[place] | | | | | | [address] | | | | + + + + + + | Creatinine | 1.03 (H)Comment: Testing | 0.50 - 1.00 | EXTERNAL | | | | performed at [facility];[address] | mg/dL | LAB | | | | [address];[place] | | | | | | [address] | | | | + + + + + + | BUN/Creatin | 11Comment: Testing | | EXTERNAL | | | ine Ratio | performed at [facility];[address] | | LAB | | | | [address];[place] | | | | | | [address] | | | | + + + + + + | Calcium | 9.7Comment: Testing | 8.5 - 10.2 | EXTERNAL | | | | performed at [facility];[address] | mg/dL | LAB | | | | [address];[place] | | | | | | [address] | | | | + + + + + + | Protein, | 8.7 (H)Comment: Testing | 6.3 - 8.2 g/dL | EXTERNAL | | | Total | performed at [facility];[address] | | LAB | | | | [address];[place] | | | | | | [address] | | | | + + + + + + | Albumin | 4.5Comment: Testing | 3.6 - 5.0 g/dL | EXTERNAL | | | | performed at [facility];[address] | | LAB | | | | [address];[place] | | | | | | [address] | | | | + + + + + + | Globulin | 4.2Comment: Testing | 1.3 - 4.9 g/dL | EXTERNAL | | | | performed at [facility];[address] | | LAB | | | | [address];[place] | | | | | | [address] | | | | + + + + + + | A/G Ratio | 1.1Comment: Testing | 1.0 - 2.4 | EXTERNAL | | | | performed at [facility];[address] | | LAB | | | | [address];[place] | | | | | | [address] | | | | + + + + + + | Bilirubin | 0.2Comment: Testing | 0.1 - 1.5 mg/dL | EXTERNAL | | | Total | performed at [facility];[address] | | LAB | | | | [address];[place] | | | | | | [address] | | | | + + + + + + | ALP, | 144 (H)Comment: Testing | 35 - 115 U/L | EXTERNAL | | | External | performed at [facility];[address] | | LAB | | | | [address];[place] | | | | | | [address] | | | | + + + + + + | AST | 19Comment: Testing | 10 - 45 U/L | EXTERNAL | | | | performed at [facility];[address] | | LAB | | | | [address];[place] | | | | | | [address] | | | | + + + + + + | ALT | 28Comment: Testing | 10 - 65 U/L | EXTERNAL | | | | performed at [facility];[address] | | LAB | | | | [address];[place] | | | | | | [address] | | | | + + + + + + | Estimated | 59 (L)Comment: GFR <60: | mL/min/1.73m2 | EXTERNAL | [...] | | | | | | at [facility];[address];[place] [address] | | | | + + + [...] + documented in this encounter Visit Diagnoses + + | Diagnosis | + + | Acute abdominal pain Abdominal pain, unspecified site | + + | Acute gastroenteritis Other and unspecified noninfectious gastroenteritis and colitis | + + documented in this encounter"
--- OUTSIDE RECORDS SUMMARY | ~2019-04-09 | XMS | Encounter Summary ---
Demographics + + + | Address | [address] | | | [place] [address] | + + + | Home Phone | | + + + | Preferred Language | Unknown | + + + | Marital Status | | + + + | Uatsdin Affiliation | Unknown | + + + | Race | Unknown | + + + | Ethnic Group | Unknown | + + + Author + + + | Author | [facility] [place] | | | and [place] | + + + | Organization | [facility] | | | and [place] [...] Team Providers + +------+ + | Care Sensory Scientist Name | Role | Phone | + +------+ + PCP | Unavailable | + +------+ + Encounter Details +--------+ + + + + | Date | Type | Department | Care Team | Description | +--------+ + + + + | 02/21/ | Hospital | [facility] | Conversion | Other screening | | 2012 | Encounter | IMAGING SERVICES | Transaction, | mammogram | | | | [address] | Provider Unknown | | | | | [address] [place], [place] | [phone] | | | | | [address] | | | | | | [phone] | | | +--------+ + + + [...] | + +--------+ + + + | RAIMUNDO DIGITAL | Routin | 02/21/2013 | | Results for this | | SCREENING BILATERAL | e | 8:43 AM | | procedure are in the | | | | PST | | results section. | + +--------+ + + + documented in this encounter Results RAIMUNDO Digital Screening Bilateral (02/21/2013 8:43 AM PST) + + | Specimen | + + | | + + + + + | Impressions | Performed At | + + + | BI-RADS 1 Negative examination. Routine annual examination | | | recommended. No mammographic evidence of malignancy Patient's | | | information has been entered into the reminder system with a target | | | date for follow-up mammogram. No imaging study is completely | | | sensitive and 10 to 15% of malignancies are not visible by | | | mammography. A negative mammographic evaluation should not preclude | | | further evaluation of any clinically suspicious finding. | | | | | + + + + + + | Narrative | Performed At | + + + | 57 years Female History: MAMMO SCREENING BILATERAL Comparison: | | | none Technique: Bilateral DIGITAL CC and MLO: 4 images. | | | COMPUTER AIDED DETECTION was utilized. Breast parenchyma: Breast | | | parenchyma is normal in attenuation with scattered fibroglandular | | | elements throughout both breasts. No dominant or spiculated mass is | | | seen. Calcifications: There are no worrisome calcifications within | | | the breasts. Architectural distortion: None | | + + + + + | Procedure Note | + + | Roberth, Rad Conversion - 12/01/2018 7:14 PM PDT 57 years FemaleHistory: MAMMO SCREENING | | BILATERAL Comparison: none Technique: Bilateral DIGITAL CC and MLO: 4 images. | | COMPUTER AIDED DETECTION was utilized. Breast parenchyma: Breast parenchyma is normal in | | attenuation with scattered fibroglandular elements throughout both breasts. No dominant | | or spiculated mass is seen.Calcifications: There are no worrisome calcifications within | | the breasts.Architectural distortion: None IMPRESSION: BI-RADS 1 Negative | | examination. Routine annual examination recommended. No mammographic evidence of | | malignancy Patient's information has been entered into the reminder system with a target | | date for follow-up mammogram.No imaging study is completely sensitive and 10 to 15% of | | malignancies are not visible by mammography. A negative mammographic evaluation should | | not preclude further evaluation of any clinically suspicious finding. Electronically | | signed by Raul Hamilton MD on 02/21/2013 1:19 PM | | | |BI-RADS 1 Negative examination. Routine annual examination recommended. | | | |No mammographic evidence of malignancy | | | |Patient's information has been entered into the reminder system with a target date for foll ow-up mammogram. | |No imaging study is completely sensitive and 10 to 15% of malignancies are not visible by mammography. A negative mammographic evaluation should not preclude further evaluation of a ny clinically suspicious finding. | | | | | + + documented in this encounter Visit Diagnoses + + | Diagnosis | + + | Other screening mammogram | + + documented in this encounter"
--- OUTSIDE RECORDS SUMMARY | ~2019-04-09 | XMS | Encounter Summary ---
Demographics + + + | Address | [address] | | | [place] [address] | + + + | Home Phone | | + + + | Preferred Language | Unknown | + + + | Marital Status | | + + + | Amish Affiliation | Unknown | + + + | Race | Unknown | + + + | Ethnic Group | Unknown | + + + Author + + + | Author | [facility] [place] | | | and [place] | + + + | Organization | [facility] [place] | | | and [place] | [...] Team Providers + +------+ + | Care Inventory Control Specialist Name | Role | Phone | + +------+ + PCP | Unavailable | + +------+ + Encounter Details +--------+ + + + + | Date | Type | Department | Care Team | Description | +--------+ + + + + | 09/03/ | Hospital | [facility] | Conversion | | | 2016 | Encounter | [facility] | Transaction, | | | | | NUCLEAR MEDICINE | Provider Unknown | | | | | [address] | | | | | | [place] | (Fax) | | | | | [address] | | | | | | [phone] | | | +--------+ + + + [...] filedocumented as of this encounter Visit Diagnoses Not on filedocumented in this encounter"
--- OUTSIDE RECORDS SUMMARY | ~2019-04-09 | XMS | Encounter Summary ---
Demographics + + + | Address | [address] | | | [place] [address] | + + + | Home Phone | | + + + | Preferred Language | Unknown | + + + | Marital Status | | + + + | Spiritism Affiliation | Unknown | + + + | Race | Unknown | + + + | Ethnic Group | Unknown | + + + Author + + + | Author | [facility] [place] | | | and [place] | + + + | Organization | [facility] [place] | | | and [place] [...] Team Providers + +------+ + | Care Business Management Analyst Name | Role | Phone | + +------+ + PCP | Unavailable | + +------+ + Encounter Details +--------+ + + + + | Date | Type | Department | Care Team | Description | +--------+ + + + + | 08/04/ | Hospital | [facility] | Conversion | [facility] NOS EPISODE CARE | | 2002 - | Encounter | [facility] | Transaction, | UNSPEC ([facility]) | | | | CARE FLOOR [address] | Provider Unknown | | | 08/06/ | | [address] | | | | 2002 | | [place], [place] | (Fax) | | | | | [address] | | | | | | [phone] | | | +--------+ + + + [...] | Diagnosis | + + | Acute myocardial infarction, unspecified site, episode of care unspecified | + + documented in this encounter"
--- OUTSIDE RECORDS SUMMARY | ~2019-04-09 | XMS | Encounter Summary ---
Demographics + + + | Address | [address] | | | [place] [address] | + + + | Home Phone | | + + + | Preferred Language | Unknown | + + + | Marital Status | | + + + | Sikhism Affiliation | Unknown | + + + | Race | Unknown | + + + | Ethnic Group | Unknown | + + + Author + + + | Author | [facility] [place] | | | and [place] | + + + | Organization | [facility] | | | and [...] Team Providers + +------+ + | Care Mailmaster Name | Role | Phone | + +------+ + PCP | Unavailable | + +------+ + Encounter Details +--------+ + + + + | Date | Type | Department | Care Team | Description | +--------+ + + + + | 02/21/ | Hospital | [facility] | Conversion | Other screening | | 2012 | Encounter | IMAGING SERVICES | Transaction, | mammogram | | | | [address] | Provider Unknown | | | | | [address] [place], [place] | [phone] | | | | | [address] | | | | | | [phone] | | | +--------+ + + + [...]
--- OUTSIDE RECORDS SUMMARY | ~2019-04-09 | XMS | Encounter Summary ---
Demographics + + + | Address | [address] | | | [place] [address] | + + + | Home Phone | | + + + | Preferred Language | Unknown | + + + | Marital Status | | + + + | Hindu Affiliation | Unknown | + + + | Race | Unknown | + + + | Ethnic Group | Unknown | + + + Author + + + | Author | [facility] [place] | | | and [place] | + + + | Organization | [facility] [place] | | | and [place] [...] Team Providers + +------+ + | Care Powdered Metal Supervisor Name | Role | Phone | + +------+ + PCP | Unavailable | + +------+ + Encounter Details +--------+ + + + + | Date | Type | Department | Care Team | Description | +--------+ + + + + | 08/04/ | Hospital | [facility] | Conversion | [place] NOS EPISODE CARE | | 2002 - | Encounter | [facility]ENTER [facility] | Transaction, | UNSPEC ([facility]) | | | | CARE FLOOR [phone] | Provider Unknown | | | 08/06/ | | [address] | | | | 2002 | | [place], [place] | (Fax) | | | | | [address] | | | | | | [phone] | | | +--------+ + + + [...]
--- OUTSIDE RECORDS SUMMARY | ~2019-04-09 | XMS | Clinical Summary ---
Demographics + + + | Address | [address] | | | [address] | | | [place] [address] | + + + | Home Phone | | + + + | Preferred Language | Unknown | + + + | Marital Status | | + + + | Holiness Affiliation | Unknown | + + + | Race | Unknown | + + + | Ethnic Group | Unknown | + + + Author + + + | Author | [facility] (Historical as of | | | 11-25-18) | + + + | Organization | [facility] (Historical as of | | | 11-25-18) | + + + | Address | Unknown | + + + | Phone | Unavailable | + + + Support + + + + + | Name | Relationship | Address | Phone | + + + + + | Detailed,Message | ECON | Unknown | | + + + + + | James Amador | ECON | [address] | | | | | [place] | | | | | [address] | | + + + + + Care Team Providers + +------+ + | Care Telephoto Installer Name | Role | Phone | + +------+ + | Braydon Lowry DO | PP | | + +------+ + Allergies + + + + + + | Active Allergy | Reactions | Severity | Noted | Comments | | | | | Date | | + + + + + + | Penicillins | Itching | Medium | 05/26/19 | | | | | | 14 | | + + + + + + Current Medications + + + +---------+------+------+-------+ | Prescription | Sig. | Disp. | Refills | Star | End | Statu | | | | | | t | Date | s | | | | | | Date | | | + + + +---------+------+------+-------+ | clopidogrel | Take 75 mg by mouth | | | | | Activ | | (PLAVIX) 75 MG | daily. | | | | | e | | tablet | | | | | | | + + + +---------+------+------+-------+ | pravastatin | Take 40 mg by mouth | | | | | Activ | | (PRAVACHOL) 40 MG | nightly. | | | | | e | | tablet | | | | | | | + + + +---------+------+------+-------+ | sertraline | Take 50 mg by mouth | | | 08/0 | | Activ | | (ZOLOFT) 50 MG | daily. | | | 2/20 | | e | | tablet | | | | 16 | | | + + + +---------+------+------+-------+ | estradiol | | | | 06/1 | | Activ | | (ESTRACE) 1 MG | | | | 1/20 | | e | | tablet | | | | 16 | | | + + + +---------+------+------+-------+ | amLODIPine | | | | 07/0 | | Activ | | (NORVASC) 10 MG | | | | 5/20 | | e | | tablet | | | | 16 | | | + + + +---------+------+------+-------+ | oxybutynin | every 6 (six) hours | | | 06/3 | | Activ | | (DITROPAN) 5 MG | as needed. | | | 0/20 | | e | | tabletIndications: | Indications: | | | 16 | | | | Hyperhidrosis | Excessive or Profuse | | | | | | | | Sweating | | | | | | + + + +---------+------+------+-------+ | ramipril (ALTACE) | | | | 06 | | Activ | | 10 MG capsule | | | | 09/28 | | e | | | | | | 16 | | | + + + +---------+------+------+-------+ | | | | | 07 | | Activ | | HYDROcodone-acetamin | | | | 12/29 | | e | | ophen (NORCO) | | | | 16 | | | | 7.5-325 MG per | | | | | | | | tablet | | | | | | | + + + +---------+------+------+-------+ | traMADol (ULTRAM) | every 6 (six) hours | | | / | | Activ | | 50 MG tablet | as needed. | | | 1/20 | | e | | | | | | 16 | | | + + + +---------+------+------+-------+ | vitamin D2, | once a week. Pt | | | 09/10 | | Activ | | ergocalciferol, | takes every Tuesday | | | 20 | | e | | [address]111 UNITS capsule | | | | 16 | | | + + + +---------+------+------+-------+ | metFORMIN | Take 2 tablets by | 60 | 1 | 11/09 | | Activ | | (GLUCOPHAGE) 500 MG | mouth 2 (two) times | tablet | | 0/20 | | e | | tablet | daily with meals. | | | 16 | | | + + + +---------+------+------+-------+ | insulin aspart | Inject 15 Units into | 3 mL | 1 | 08/1 | | Activ | | protamine-insulin | the skin 2 (two) | | | 0/20 | | e | | aspart (NOVOLOG | times daily before | | | 16 | | | | 70/30) (70-30) 100 | meals. | | | | | | | UNIT/ML injection | | | | | | | + + + +---------+------+------+-------+ | hydrocortisone | Place 1 suppository | 12 | 0 | 08/ | | Activ | | (ANUSOL-HC) 25 MG | rectally 2 (two) | supposito | | 520 | | e | | suppository | times daily as | ry | | 16 | | | | | needed for | | | | | | | | Hemorrhoids. Place | | | | | | | | into the rectum | | | | | | | | after each bowel | | | | | | | | movement and at | | | | | | | | night as needed | | | | | | + + + +---------+------+------+-------+ | carvedilol (COREG) | Take 1 tablet by | 60 | 0 | 11/2 | | Activ | | 12.5 MG tablet | mouth 2 (two) times | tablet | | 8/20 | | e | | | daily with meals. | | | 16 | | | + + + +---------+------+------+-------+ | potassium chloride | Take 2 tablets by | 60 | 0 | 11/2 | | Activ | | (K-DUR,KLOR-CON) 20 | mouth daily with | tablet | | 8/20 | | e | | MEQ tablet | breakfast. | | | 16 | | | + + + +---------+------+------+-------+ | sucralfate | Take 10 mLs by mouth | 420 mL | 0 | 11/2 | | Activ | | (CARAFATE) 1 GM/10ML | every 6 (six) | | | 8/20 | | e | | suspension | hours. | | | 16 | | | + + + +---------+------+------+-------+ | Apoaequorin | Take by mouth. | | | | | Activ | | (PREVAGEN PO) | | | | | | e | + + + +---------+------+------+-------+ Active Problems + + + | Problem | Noted Date | + + + | Colon cancer screening | 04/19/2016 | + + + | Epigastric pain | 04/19/2016 | + + + | Non-intractable vomiting with nausea | 04/19/2016 | + + + | Hypokalemia | 03/06/2016 | + + + | Dehydration | 03/05/2016 | + + + | Chest pain, unspecified | 03/05/2016 | + + + | Obesity, unspecified | 03/05/2016 | + + + | Type 2 diabetes mellitus with hyperglycemia (HCC) | 03/05/2016 | + + + | Gastroesophageal reflux disease without esophagitis | 03/05/2016 | + + + | Epigastric abdominal pain | 03/05/2016 | + + + | Severe protein-calorie malnutrition (HCC) | 11/21/2015 | + + + | Gastritis and duodenitis | 11/20/2015 | + + + | CAD (coronary artery disease) | 11/18/2015 | + + + | Depression | 11/18/2015 | + + + | Leukocytosis, unspecified | 11/18/2015 | + + + | Smoking | 11/18/2015 | + + + | Essential hypertension, benign | 11/16/2015 | + + + | Other and unspecified hyperlipidemia | 11/16/2015 | + + + | DM (diabetes mellitus) | 11/16/2015 | + + + | Abdominal pain | 11/16/2015 | + + + | Nausea and vomiting | 11/16/2015 | + + + Immunizations + + + + | Name | Dates Previously Given | Next Due | + + + + | INFLUENZA PF, | 03/06/2016 | | | QUADRIVALENT | | | | (PED/ADOL/ADULT) | | | + + + + [...] | | | + +-------+ +--------+------+ + +---+---+---+ | Smokeless Tobacco: | | | | | Never Used | | | | + +---+---+---+ + + | Tobacco Cessation: Counseling Given: Yes | + + + + +---------+ + | Alcohol Use | Drinks/We | oz/Week | Comments | | | ek | | | + + +---------+ + | No | | | | + + +---------+ + + + + | Sex Assigned at | Date Recorded | | | | + + + | Not on file | | + + + Last Filed Vital Signs + + + + | Vital Sign | Reading | Time Taken | + + + + | Blood Pressure | 135/63 | 06/01/2016 1:45 PM PST | + + + + | Pulse | 62 | 06/01/2016 1:45 PM PST | + + + + | Temperature | 36.2 C (97.1 F) | 06/01/2016 1:45 PM PST | + + + + | Respiratory Rate | 14 | 06/01/2016 1:45 PM PST | + + + + | Oxygen Saturation | 99% | 06/01/2016 1:45 PM PST | + + + + | Inhaled Oxygen | - | - | | Concentration | | | + + + + | Weight | 86.8 kg (191 lb 5.8 | 06/01/2016 10:56 AM PST | | | oz) | | + + + + | Height | 165.1 cm (5' 5") | 06/01/2016 10:56 AM PST | + + + + | Body Mass Index | 31.84 | 06/01/2016 10:56 AM PST | + + + + Plan of Treatment + + + + + | Health Maintenance | Due Date | Last Done | Comments | + + + + + | Diabetic Eye Exam | | | | | | 6 | | | + + + + + | Diabetic Foot Exam | | | | | | 6 | | | + + + + + | Microalbumin | | | | | Screening | 6 | | | + + + + + | Vaccine: | | | | | Dtap/Tdap/Td (1 - | 5 | | | | Tdap) | | | | + + + + + | Vaccine: | | | | | Pneumococcal 19-64 | 5 | | | | (PPSV23 only) Medium | | | | | Risk (1 of 1 - | | | | | PPSV23) | | | | + + + [...] | Screening | 5 | | | | (Mammogram) | | | | + + + + + | Hemoglobin A1c | | 03/05/2016, 11/17/2015, | | | | 7 | 11/16/2015 | | + + + + + | Vaccine: Influenza | | 03/06/2016 | | | (#1) | 9 | | | + + + + + | Colon Cancer | | 06/01/2016 | | | Screening | 7 | | | | (Colonoscopy) | | | | + + + + + Results Not on filefrom Last 3 Months Insurance +---------+--------+ +------+-------+ + | Payer | Benefi | Subscriber | Type | Phone | Address | | | t Plan | ID | | | | | | / | | | | | | | Group | | | | | +---------+--------+ +------+-------+ + | PREMERA | PREMER | [id number] | | | [address] [address] | | | A BLUE | | | | [place], [place] | | | [place] | | | | [address] | | | FED | | | | | | | PPO | | | | | +---------+--------+ +------+-------+ + + +--------+ +--------+ + + | Guarantor Name | Accoun | Relation to | Date | Phone | Billing Address | | | t Type | Patient | of | | | | | | | | | | + +--------+ +--------+ + + | CAPRICE AMADOR | Person | Self [birth year] | Home: | [address] | | | al[place]ime | | [phone] | [phone] [address] [place] | | | [place] | | | [phone] | [phone] | + +--------+ +--------+ + +
--- OUTSIDE RECORDS SUMMARY | ~2019-04-09 | XMS | Encounter Summary ---
Demographics + + + | Address | [address] | | | [place] [address] | + + + | Home Phone | | + + + | Preferred Language | Unknown | + + + | Marital Status | | + + + | Anglican Affiliation | Unknown | + + + | Race | Unknown | + + + | Ethnic Group | Unknown | + + + Author + + + | Author | [facility] [place] | | | and [place] | + + + | Organization | [facility] | | | and [place] [...] Team Providers + +------+ + | Care It Senior Analyst Name | Role | Phone | + +------+ + PCP | Unavailable | + +------+ + Encounter Details +--------+ + + + + | Date | Type | Department | Care Team | Description | +--------+ + + + + | 06/01/ | Hospital | [facility] | Patricia Oden, | Colon cancer | | 2017 | Encounter | [facility] | [address] | screening | | | | INTRA [address] | [address] [facility] | | | | | [place], [place] | [place] [address] | | | | | [address] | [phone] | | | | | [phone] | | | +--------+ + + + [...] | Blood Pressure | 135/63 | 06/01/2016 1:50 PM | | | | | PST | | + + + + + | Pulse | 62 | 06/01/2016 1:50 PM | | | [...] 86.8 kg (191 lb 5.8 | 06/01/2016 1:50 PM | | | | oz) | PST | | + + + + + | Height | 165.1 cm (5' 5") | 06/01/2016 1:50 PM | | | | | PST | | + + + + + | Body Mass Index | 31.84 | 06/01/2016 1:50 PM | | | | | PST | | + + + + + documented in this encounter Plan of Treatment Not on filedocumented as of this encounter Procedures + +--------+ + + + | Procedure Name | Priori | Date/Time | Associated Diagnosis | Comments | | | ty | | | | + +--------+ + + + | TISSUE REQUEST FOR | Routin | 06/02/2016 | | Results for this | | PATHOLOGY (NON-ORD) | e | 12:00 AM | | procedure are in the | | | | PST | | results section. | + +--------+ + + + | POC GLUCOSE | Routin | 06/01/2016 | | Results for this | | | e | 11:07 AM | | procedure are in the | | | | PST | | results section. | + +--------+ + + + documented in this encounter Results Tissue Request For Pathology (06/02/2016 12:00 AM PST) + + | Specimen | + + | Soft tissue sample | | (specimen) | + + + + + | Narrative | Performed At | + + + | SPECIMEN(S): A CECAL POLYP SPECIMEN(S): B ASCENDING COLON POLYPS | EXTERNAL LAB | | SPECIMEN(S): C TRANSVERSE COLON POLYPS SPECIMEN SOURCE: A. CECAL | | | POLYP B. ASCENDING COLON POLYPS C. TRANSVERSE COLON POLYPS CLINICAL | | | HISTORY: 06/01/2016 at 1251 H. No clinical history given. | | | MICROSCOPIC DESCRIPTION: A-C. Histologic sections of all submitted | | | blocks are examined by light microscopy. These findings, together with | | | the gross examination, support the pathologic diagnosis. FINAL | | | PATHOLOGIC DIAGNOSIS: A. Colon, cecum, biopsy: - Hyperplastic | | | polyp. COMMENT: There is no evidence of dysplasia or malignancy. | | | B. Colon, ascending, biopsy: - Sessile serrated polyp, | | | single largest polyp. - Additional polyps consist of tubular | | | adenomata and hyperplastic polyps. - No evidence of | | | malignancy. The sections through the colonic polyp show the presence | | | of serrated glands lined by cells that histologically more closely | | | resemble hyperplastic epithelium than adenomatous epithelium. Unlike | | | traditional hyperplastic polyps the serrated appearance extends to the | | | base of the mucosa. No dysplasia or malignancy is identified. | | | This polyp type can be seen in hyperplastic ("serrated") polyposis | | | syndrome. Recent data suggest that patients with sessile serrated | | | polyps, if incompletely excised or associated with multiple similar | | | polyps, may benefit from a shorter surveillance interval (e.g., 1-2 | | | years) since there is now compelling evidence that these lesions often | | | contain a "methylator phenotype". References: Hoang [place], Pete JR, | | | Rebecca Laguerre, Jewel ROSSI. Serrated polyps of the large intestine: | | | a morphologic and molecular review of an evolving concept. Am J Clin | | | Pathol. 2005;124:380-91. C. Colon, transverse, biopsies: - | | | Multiple fragments of tubular adenoma. - No evidence of high | | | grade dysplasia or malignancy. GROSS DESCRIPTION: Three specimens | | | are received in three containers labeled with the patient's name: | | | A. The specimen is received in formalin designated "cecal polyp" and | | | consists of one yellow-graves soft tissue fragment that is 0.2 cm in | | | greatest dimension. The specimen is entirely submitted in cassette | | | A1. B. The specimen is received in formalin designated "ascending | | | colon polyps" and consists of multiple yellow-graves soft tissue | | | fragments that range in size from 0.3 cm up to 1.0 cm in greatest | | | dimension. The largest tissue fragment is inked and sectioned. The | | | specimen is entirely submitted in cassette B1. C. The specimen is | | | received in formalin designated "transverse colon polyps" and consists | | | of three yellow-graves soft tissue fragments that range in size from 0.5 | | | cm up to 0.9 cm in greatest dimension. The largest tissue fragment | | | is inked and trisected. The specimen is entirely submitted in | | | cassette C1. FAM:[facility] PERFORMING LABORATORY: Professional | | | interpretation and technical preparation was performed by [facility] | | | [facility], [address], | | | [place] [address] (Bioprocess Engineer: Vinh Leal M.D.; IA#: | | | [id number]). Diagnostician: Samuel Venegas MD Pathologist | | | Electronically Signed 06/03/2016 | | + + + + +---------+ + + | Performing | Address | City/State/Zipcode | Phone Number | | Organization | | | | + +---------+ + + | EXTERNAL LAB | | | | + +---------+ + + POC Glucose (06/01/2016 11:07 AM PST) + + + + + + | Component | Value | Ref Range | Performed | Pathologist | | | | | At | Signature | + + + + + + | Glucose, | 86Comment: Testing | 65 - 99 mg/dL | EXTERNAL | | | Fingerstick | performed at [facility];[address] | | LAB | | | | [address];[place], [place] | | | | | | [address] | | | | + + + + + + + + | Specimen | + + | | + + + +---------+ + + | Performing | Address | City/State/Zipcode | Phone Number | | Organization | | | | + +---------+ + + | EXTERNAL LAB | | | | + +---------+ + + documented in this encounter Visit Diagnoses + + | Diagnosis | + + | Colon cancer screening Special screening for malignant neoplasms, colon | + + documented in this encounter
--- OUTSIDE RECORDS SUMMARY | ~2019-04-09 | XMS | Clinical Summary ---
Demographics + + + | Address | [address] | | | [place] [address] | + + + | Home Phone | | + + + | Preferred Language | Unknown | + + + | Marital Status | | + + + | Restoration Affiliation | Unknown | + + + | Race | Unknown | + + + | Ethnic Group | Unknown | + + + Author + + + | Author | [facility] [place] | | | and [place] | + + + | Organization | [facility] [place] | | | and [place] [...] Team Providers + +------+ + | Care Molder Operator Name | Role | Phone | + [...] | [employer] | MODA | [id number] | 02/19/ | [phone] | | Medica | | MEDICAID HMO [...] | Self | [birth year] | [address] | | | al/Fam | | 1956 | [phone] | [place] [address] | | | sammi | | | 2 (Home) | | + +--------+ +--------+ + +
--- OUTSIDE RECORDS SUMMARY | ~2019-04-09 | XMS | Encounter Summary ---
Demographics + + + | Address | [address] | | | [place] [address] | + + + | Home Phone | | + + + | Preferred Language | Unknown | + + + | Marital Status | | + + + | Holiness Affiliation | Unknown | + + + | Race | Unknown | + + + | Ethnic Group | Unknown | + + + Author + + + | Author | [facility] [place] | | | and [place] | + + + | Organization | [facility] [place] | | | and [...] Team Providers + +------+ + | Care Telephone Interviewer Name | Role | Phone | + +------+ + PCP | Unavailable | + +------+ + Encounter Details +--------+ + + + + | Date | Type | Department | Care Team | Description | +--------+ + + + + | 05/28/ | Hospital | [facility] | Conversion | | | 2017 | Encounter | [facility] | Transaction, | | | | | CLINIC [address] | Provider Unknown | | | | | [place] | | | | | | [address] | (Fax) | | | | | [phone] | | | +--------+ + + + [...] EXTERNAL | | | | performed at [facility]888 | mmol/L | LAB | | | | [facility];[place], [place] | | | | | | [address] | | | | + + + + + + | K | 4.1Comment: Testing | 3.5 - 4.9 | EXTERNAL | | | | performed at [facility];888 | mmol/L | LAB | | | | [address];[place] | | | | | | [address] | | | | + + + + + + | Cl | 106Comment: Testing | 99 - 109 mmol/L | EXTERNAL | | | | performed at [facility];[address] | | LAB | | | | [address];[place] | | | | | | [address] | | | | + + + + + + | CO2 | 27Comment: Testing | 23 - 32 mmol/L | EXTERNAL | | | | performed at [facility];[address] | | LAB | | | | [address];[place] | | | | | | [address] | | | | + + + + + + | Anion Gap | 12Comment: Testing | 5 - 20 mmol/L | EXTERNAL | | | | performed at [facility];[address] | | LAB | | | | [address];[place] | | | | | | [address] | | | | + + + + + + | Glucose, | 152 (H)Comment: Testing | 65 - 99 mg/dL | EXTERNAL | | | Fasting | performed at [facility];[address] | | LAB | | | | [address];[place] | | | | | | [address] | | | | + + + + + + | BUN | 14Comment: Testing | 8 - 25 mg/dL | EXTERNAL | | | | performed at [facility];[address] | | LAB | | | | [address];[place] | | | | | | [address] | | | | + + + + + + | Creatinine | 0.79Comment: Testing | 0.50 - 1.00 | EXTERNAL | | | | performed at [facility];888 | mg/dL | LAB | | | | [address];[place] | | | | | | [address] | | | | + + + + + + | BUN/Creatin | 18Comment: Testing | | EXTERNAL | | | ine Ratio | performed at [facility];[address] | | LAB | | | | [address];[place] | | | | | | [address] | | | | + + + + + + | Calcium | 9.3Comment: Testing | 8.5 - 10.5 | EXTERNAL | | | | performed at [facility];888 | mg/dL | LAB | | | | [address];[place] | | | | | | [address] | | | | + + + [...] | | | | | | at [facility];[address] | | | | | | [address];[place] [address] | | | | + + + [...]
--- OUTSIDE RECORDS SUMMARY | ~2019-04-09 | XMS | Encounter Summary ---
Demographics + + + | Address | [address] | | | [place] [address] | + + + | Home Phone | | + + + | Preferred Language | Unknown | + + + | Marital Status | | + + + | Yazidism Affiliation | Unknown | + + + | Race | Unknown | + + + | Ethnic Group | Unknown | + + + Author + + + | Author | [facility] [place] | | | and [place] | + + + | Organization | [facility] [place] | | | and [place] [...] Team Providers + +------+ + | Care Ski Lift Operator Name | Role | Phone | + +------+ + PCP | Unavailable | + +------+ + Encounter Details +--------+ + + + + | Date | Type | Department | Care Team | Description | +--------+ + + + + | 07/06/ | Hospital | [facility] | Tommy Voss E, | | | 2001 | Encounter | MED CTR [facility] INTRA OP | [address] | | | | | [address] | [place] | | | | | [place] | [address] | | | | | [address] | | | | | | [phone] | | | +--------+ + + + [...]
--- OUTSIDE RECORDS SUMMARY | ~2019-04-09 | XMS | Clinical Summary ---
Demographics + + + | Address | [address] | | | [place] [address] | + + + | Home Phone | | + + + | Preferred Language | Unknown | + + + | Marital Status | | + + + | Yazidi Affiliation | Unknown | + + + | Race | Unknown | + + + | Ethnic Group | Unknown | + + + Author + + + | Author | [facility] [place] | | | and [place] | + + + | Organization | [facility] [place] | | | and [place] [...] Team Providers + +------+ + | Care Senior Inspector Name | Role | Phone | + [...] | [employer] | MODA | [id number] | 02/19/ | [phone] | | Medica | | MEDICAID HMO [...] | Self | [birth year] | | [address] | | | al/Fam | | 1956 | [phone] | [place] [address] | | | sammi | | | 2 (Home) | | + +--------+ +--------+ + +
--- OUTSIDE RECORDS SUMMARY | ~2019-04-09 | XMS | Encounter Summary ---
Demographics + + + | Address | [address] | | | [place] [address] | + + + | Home Phone | | + + + | Preferred Language | Unknown | + + + | Marital Status | | + + + | Holiness Affiliation | Unknown | + + + | Race | Unknown | + + + | Ethnic Group | Unknown | + + + Author + + + | Author | [facility] [place] | | | and [place] | + + + | Organization | [facility] [place] | | | and [place] | + + + | Address | Unknown | + + + | Phone | Unavailable | + + + Support + + +---------+ + | Name | Relationship | Address | Phone | + + +---------+ + | James Amador | ECON | Unknown | | + + +---------+ + Care Team Providers + +------+ + | Care Personal Computer Specialist Name | Role | Phone | + +------+ + PCP | Unavailable | + +------+ + Encounter Details +--------+ + + + + | Date | Type | Department | Care Team | Description | +--------+ + + + + | 06/04/ | Hospital | [facility] | Braydon Pena, | Pain in Joint, | | 2008 | Encounter | CONVERSION [address] | [place] [address] [address] | Pelvic Region and | | | | [address] | [address] | Thigh | | | | [place], [place] | [place] [address] | | | | | [address] | [phone] | | | | | [phone] | | | +--------+ + + + [...] | + +--------+ + + + | XR HIP LEFT 2-3 | Routin | 06/04/2008 | | Results for this | | VIEWS | e | 9:30 AM | | procedure are in the | | | | PST | | results section. | + +--------+ + + + documented in this encounter Results XR Hip Left 2-3 Views (06/04/2008 9:30 AM PST) + + | Specimen | + + | | + + + + + | Narrative | Performed At | + + + | [id number] | | | Page 1 RADIOLOGY | | | / | | | O/P [facility] | | | NAME: [place] [address] | | | | | | | | | DATE OF : 1955 ORDER NUMBER: [id number] EXAM | | | DATE/TIME: 06/04/2008 09:22 A ORDERING PHYSICIAN: BRAYDON PENA | | | ORDER DETAIL: [id number] / / MARTHA EXAM DESCRIPTION: XR HIP 2VIEWS LEFT | | | | | | TWO-VIEW LEFT HIP 06/04/2008 HISTORY Hip pain. TECHNIQUE | | | Skeletal images were obtained as requested above customarily to | | | evaluate for effects of trauma, chronic disease, neoplastic disease, | | | aging changes or developmental anomalies. Evaluation includes soft | | | tissues and osseous structures. Any abnormalities on the basis of | | | these criteria will be discussed below. FINDINGS There is | | | minimal osteophytic buttressing along the articular surface of the | | | left femoral head seen only on the frogleg view. The joint spaces are | | | well preserved. Good acetabular coverage is noted. Pelvic ring is | | | intact. IMPRESSION Minimal degenerative changes. Details | | | mentioned above. Read by KURT GARZA MD 06/04/2008 10:46 A | | | Electronically Signed by KURT GARZA MD 06/04/2008 03:51 P | | | A P JOEL/[id number]/ | | | cc: MD BRAYDON DIMAS DO | | + + + + + | Procedure Note | + + | Niraj Lepe Conversion - 12/04/2018 12:40 AM PDT | | [id number] Page 1 | | RADIOLOGY / | | O/P | | [facility] NAME: CAPRICE AMADOR | | [place] [address] | | | | DATE OF : 1955 | | | | ORDER NUMBER: [id number] | | EXAM DATE/TIME: 06/04/2008 09:22 A | | ORDERING PHYSICIAN: BRAYDON PENA | | ORDER DETAIL: [id number] / / MARTHA | | EXAM DESCRIPTION: XR HIP 2VIEWS LEFT | | | | TWO-VIEW LEFT HIP 06/04/2008 | | | | HISTORY | | Hip pain. | | | | TECHNIQUE | | Skeletal images were obtained as requested above customarily to evaluate | | for effects of trauma, chronic disease, neoplastic disease, aging | | changes or developmental anomalies. Evaluation includes soft tissues and | | osseous structures. Any abnormalities on the basis of these criteria | | will be discussed below. | | | | FINDINGS | | There is minimal osteophytic buttressing along the articular surface of | | the left femoral head seen only on the frogleg view. The joint spaces | | are well preserved. Good acetabular coverage is noted. Pelvic ring is | | intact. | | | | IMPRESSION | | Minimal degenerative changes. Details mentioned above. | | | | Read by | | KURT GARZA MD 06/04/2008 10:46 A | | Electronically Signed by | | KURT GARZA MD 06/04/2008 03:51 P | | | | A | | P | | [facility]/[id number]/ | | cc: KURT GARZA MD | | BRAYDON PENA DO | + + documented in this encounter Visit Diagnoses + + | Diagnosis | + + | Pain in joint, pelvic region and thigh | + + documented in this encounter"
--- OUTSIDE RECORDS SUMMARY | ~2019-04-09 | XMS | Encounter Summary ---
Demographics + + + | Address | [address] | | | [place] [address] | + + + | Home Phone | | + + + | Preferred Language | Unknown | + + + | Marital Status | | + + + | Jain Affiliation | Unknown | + + + | Race | Unknown | + + + | Ethnic Group | Unknown | + + + Author + + + | Author | [facility] [place] | | | and [place] | + + + | Organization | [facility] [place] | | | and [place] [...] Team Providers + +------+ + | Care Forensic Medical Examiner Name | Role | Phone | + +------+ + PCP | Unavailable | + +------+ + Encounter Details +--------+ + + + + | Date | Type | Department | Care Team | Description | +--------+ + + + + | 01/25/ | Hospital | [facility] | Dc Munoz | Excessive | | 2002 - | Encounter | [facility] [address] | Alex [phone] | menstruation | | | | [place] | (Fax) | | | 01/27/ | | [place] | | | | 2002 | | [address] | | | | | | [phone] | | | +--------+ + + + [...]
--- OUTSIDE RECORDS SUMMARY | ~2019-04-09 | XMS | Encounter Summary ---
Demographics + + + | Address | [address] | | | [place] [address] | + + + | Home Phone | | + + + | Preferred Language | Unknown | + + + | Marital Status | | + + + | Jehovah'S Witness Affiliation | Unknown | + + + | Race | Unknown | + + + | Ethnic Group | Unknown | + + + Author + + + | Author | [facility] [place] | | | and [place] | + + + | Organization | [facility] [place] | | | and [place] [...] Team Providers + +------+ + | Care Sterile Technician Name | Role | Phone | + +------+ + PCP | Unavailable | + +------+ + Encounter Details +--------+ + + + + | Date | Type | Department | Care Team | Description | +--------+ + + + + | 07/06/ | Hospital | [facility] | Tommy Voss E, | | | 2001 | Encounter | MED CTR MP INTRA OP | [address] | | | | | [address] | [place] | | | | | [place] | [address] | | | | | [address] | | | | | | [phone] | | | +--------+ + + + [...]
--- OUTSIDE RECORDS SUMMARY | ~2019-04-09 | XMS | Encounter Summary ---
Demographics + + + | Address | [address] | | | [place] [address] | + + + | Home Phone | | + + + | Preferred Language | Unknown | + + + | Marital Status | | + + + | Roman Catholic Affiliation | Unknown | + + + | Race | Unknown | + + + | Ethnic Group | Unknown | + + + Author + + + | Author | [facility] | | | and [place] | + + + | Organization | [facility] | | | and [place] [...] Team Providers + +------+ + | [facility] Docent Name | Role | Phone | + +------+ + PCP | Unavailable | + +------+ + Encounter Details +--------+ + + + + | Date | Type | Department | Care Team | Description | +--------+ + + + + | 04/04/ | Emergency | [facility] | Avtar Ellis MD | Elevated blood | | 2016 - | | MEDICAL CENTER | [address] | pressure; | | | | EMERGENCY CENTER | [place] [address] | Generalized | | 04/05/ | | [address] | [phone] | abdominal pain; | | 2015 | | [place], [place] | | Non-intractable | | | | [address] | | vomiting with | | | | [phone] | | nausea, unspecified | | | | | | vomiting type; | | | | | | Hyponatremia; | | | | | | Hematuria | +--------+ + + + + Social [...] + + + | Blood Pressure | 204/94 | 04/05/2016 12:17 AM | | | | | PST | | + + + + + | Pulse | 101 | 04/05/2016 12:17 AM | | | | | PST | | + + + + + | Temperature | 37.2 C (98.9 F) | 04/05/2016 12:17 AM | | | | | PST | | + + + + + | Respiratory Rate | 14 | 04/05/2016 12:17 AM | | | | | PST | | + + + + + | Oxygen Saturation | - | - | | + + + + + | Inhaled Oxygen | - | - | | | Concentration | | | | + + + + + | Weight | 72.8 kg (160 lb 8 | 04/05/2016 12:17 AM | | | | oz) | PST | | + + + + + | Height | 165.1 cm (5' 5") | 04/05/2016 12:17 AM | | | | | PST | | + + + + + | Body Mass Index | 26.71 | 04/05/2016 12:17 AM | | | | | PST | | + + + + + documented in this encounter Plan of Treatment Not on filedocumented as of this encounter Procedures + +--------+ + + + | Procedure Name | Priori | Date/Time | Associated Diagnosis | Comments | | | ty | | | | + +--------+ + + + | URINALYSIS, REFLEX | Routin | 04/04/2016 | | Results for this | | MICROSCOPIC AND/OR | e | 10:42 PM | | procedure are in the | | CULTURE | | PST | | results section. | + +--------+ + + + | LACTIC ACID | Routin | 04/04/2016 | | Results for this | | | e | 7:59 PM | | procedure are in the | | | | PST | | results section. | + +--------+ + + + | EXTERNAL LAB: CBC | Routin | 04/04/2016 | | Results for this | | | e | 7:22 PM | | procedure are in the | | | | PST | | results section. | + +--------+ + + + | LIPASE | Routin | 04/04/2016 | | Results for this | | | e | 7:22 PM | | procedure are in the | | | | PST | | results section. | + +--------+ + + + | COMPREHENSIVE | Routin | 04/04/2016 | | Results for this | | METABOLIC PANEL | e | 7:22 PM | | procedure are in the | | | | PST | | results section. | + +--------+ + + + | ECG 12 LEAD | Routin | 04/04/2016 | | Results for this | | | e | 7:17 PM | | procedure are in the | | | | PST | | results section. | + +--------+ + + + documented in this encounter Results Urinalysis, Reflex Microscopic and/or Culture (04/04/2016 10:42 PM PST) + + + + + + | Component | Value | Ref Range | Performed | Pathologist | | | | | At | Signature | + + + + + + | Color | YELLOWComment: Testing | | EXTERNAL | | | | performed at [facility];[address] | | LAB | | | [address];[place] | | | | | | [address] | | | | + + + + + + | Clarity | CLEARComment: Testing | | EXTERNAL | | | | performed at [facility];[address] | | LAB | | | | [address];[place] | | | | | | [address] | | | | + + + + + + | Specific | 1.015Comment: Testing | 1.002 - 1.030 | EXTERNAL | | | Mazon | performed at [facility];[address] | | LAB | | | | [address];[place] | | | | | | [address] | | | | + + + + + + | Leukocyte | NEGATIVEComment: Testing | | EXTERNAL | | | Esterase, | performed at [facility];[address] | | LAB | | | Urine | [address];[place] | | | | | | [address] | | | | + + + + + + | Nitrite, | NEGATIVEComment: Testing | | EXTERNAL | | | Urine | performed at [facility];[address] | | LAB | | | | [address];[place] | | | | | | [address] | | | | + + + + + + | Urobilinoge | NORMALComment: Testing | mg/dL | EXTERNAL | | | n, Urine | performed at [facility];[address] | | LAB | | | | [address];[place] | | | | | | [address] | | | | + + + + + + | Protein, | >500 (A)Comment: Testing | mg/dL | EXTERNAL | | | Urine | performed at [facility];[address] | | LAB | | | | [address];[place] | | | | | | [address] | | | | + + + + + + | pH, Urine | 7.0Comment: Testing | 5.0 - 8.0 | EXTERNAL | | | | performed at [facility];[address] | | LAB | | | | [address];[place] | | | | | | [address] | | | | + + + + + + | Blood, | SMALL (A)Comment: | | EXTERNAL | | | Urine | Testing performed at | | LAB | | | | [facility];[address];[place] [address] | | | | + + + + + + | Ketones | 20 (A)Comment: Testing | mg/dL | EXTERNAL | | | | performed at [facility];[address] | | LAB | | | | [address];[place] | | | | | | [address] | | | | + + + + + + | Bilirubin, | NEGATIVEComment: Testing | | EXTERNAL | | | Urine | performed at [facility];[address] | | LAB | | | | [address];[place] | | | | | | [address] | | | | + + + + + + | Glucose, | >500 (A)Comment: Testing | mg/dL | EXTERNAL | | | Urine | performed at [facility];[address] | | LAB | | | [address];[place] | | | | | | [address] | | | | + + + + + + | WBC, UA | 3-5Comment: Testing | 0 - 5 /hpf | EXTERNAL | | | | performed at [facility];[address] | | LAB | | | | [address];[place] | | | | | | [address] | | | | + + + + + + | RBC, UA | 11-15Comment: Testing | 0 - 5 /hpf | EXTERNAL | | | | performed at [facility];[address] | | LAB | | | | [address];[place] | | | | | | [address] | | | | + + + + + + | Bacteria, | 1+ (A)Comment: Testing | | EXTERNAL | | | UA | performed at [facility];[address] | | LAB | | | | [address];[place] | | | | | | [address] | | | | + + + + + + | Epithelial | 16-25Comment: Testing | /lpf | EXTERNAL | | | Cells | performed at [facility];[address] | | LAB | | | | [address];[place] | | | | | | [address] | | | | + + + + + + | MUCUS UA | 1+Comment: Testing | | EXTERNAL | | | | performed at [facility];[address] | | LAB | | | | [address];[place] | | | | | | [address] | | | | + + + + + + + + | Specimen | + + | | + + + +---------+ + + | Performing | Address | City/State/Zipcode | Phone Number | | Organization | | | | + +---------+ + + | EXTERNAL LAB | | | | + +---------+ + + Lactic Acid (04/04/2016 7:59 PM PST) + + + + + + | Component | Value | Ref Range | Performed | Pathologist | | | | | At | Signature | + + + + + + | Lactate | 1.5Comment: Testing | 0.4 - 2.0 | EXTERNAL | | | | performed at [facility];[address] | mmol/L | LAB | | | | [address];[place], [place] | | | | | | [address] | | | | + + + + + + + + | Specimen | + + | | + + + +---------+ + + | Performing | Address | City/State/Zipcode | Phone Number | | Organization | | | | + +---------+ + + | EXTERNAL LAB | | | | + +---------+ + + External Lab: CBC (04/04/2016 7:22 PM PST) + + + + + + | Component | Value | Ref Range | Performed | Pathologist | | | | | At | Signature | + + + + + + | WBC | 14.80 (H)Comment: | 3.80 - 11.00 | EXTERNAL | | | | Testing performed at | K/uL | LAB | | | | [facility];[address];[place] [address] | | | | + + + + + + | RED CELL | 6.14 (H)Comment: Testing | 3.70 - 5.10 | EXTERNAL | | | COUNT | performed at [facility];[address] | M/uL | LAB | | | | [address];[place] | | | | | | [address] | | | | + + + + + + | Hgb | 18.7 (H)Comment: Testing | 11.3 - 15.5 | EXTERNAL | | | | performed at [facility];[address] | g/dL | LAB | | | | [address];[place] | | | | | | [address] | | | | + + + + + + | Hematocrit, | 55.1 (H)Comment: Testing | 34.0 - 46.0 % | EXTERNAL | | | POC | performed at [facility];[address] | | LAB | | | | [address];[place] | | | | | | [address] | | | | + + + + + + | MCV | 89.8Comment: Testing | 80.0 - 100.0 fl | EXTERNAL | | | | performed at [facility];[address] | | LAB | | | | [address];[place] | | | | | | [address] | | | | + + + + + + | MCH | 30.5Comment: Testing | 27.0 - 34.0 pg | EXTERNAL | | | | performed at [facility];[address] | | LAB | | | | [address];[place] | | | | | | [address] | | | | + + + + + + | MCHC | 34.0Comment: Testing | 32.0 - 35.5 | EXTERNAL | | | | performed at [facility];[address] | g/dL | LAB | | | | [address];[place] | | | | | | [address] | | | | + + + + + + | RDW-CV | 42.9Comment: Testing | 37 - 53 fl | EXTERNAL | | | | performed at [facility];[address] | | LAB | | | | [address];[place] | | | | | | [address] | | | | + + + + + + | Platelet | 364Comment: Testing | 150 - 400 K/uL | EXTERNAL | | | Count | performed at [facility];[address] | | LAB | | | Plasma | [address];[place] | | | | | | [address] | | | | + + + + + + | MPV | 8.1Comment: Testing | fl | EXTERNAL | | | | performed at [facility];[address] | | LAB | | | | [address];[place] | | | | | | [address] | | | | + + + + + + | Differentia | MANUALComment: Testing | | EXTERNAL | | | l Type | performed at [facility];[address] | | LAB | | | | [address];[place] | | | | | | [address] | | | | + + + + + + | Segmented | 81Comment: Testing | % | EXTERNAL | | | Neutrophils | performed at [facility];[address] | | LAB | | | Manual | [address];[place] | | | | | | [address] | | | | + + + + + + | % Bands | 1Comment: Testing | % | EXTERNAL | | | | performed at [facility];[address] | | LAB | | | | [address];[place] | | | | | | [address] | | | | + + + + + + | Lymphocytes | 12Comment: Testing | % | EXTERNAL | | | Manual | performed at [facility];[address] | | LAB | | | | [address];[place] | | | | | | [address] | | | | + + + + + + | Monocytes | 6Comment: Testing | % | EXTERNAL | | | Manual | performed at [facility];[address] | | LAB | | | | [address];[place] | | | | | | [address] | | | | + + + + + + | Absolute | 11.98 (H)Comment: | 1.90 - 7.40 | EXTERNAL | | | Neutrophils | Testing performed at | K/uL | LAB | | | | [facility];[address];[place] [address] | | | | + + + + + + | Bands | 0.15Comment: Testing | 0.00 - 0.20 | EXTERNAL | | | Manual | performed at [facility];[address] | K/uL | LAB | | | | [address];[place] | | | | | | [address] | | | | + + + + + + | Absolute | 1.78Comment: Testing | 1.00 - 3.90 | EXTERNAL | | | Lymphocytes | performed at [facility];[address] | K/uL | LAB | | | | [address];[place] | | | | | | [address] | | | | + + + + + + | Absolute | 0.89 (H)Comment: Testing | 0.00 - 0.80 | EXTERNAL | | | Monocytes | performed at [facility];[address] | K/uL | LAB | | | | [address];[place] | | | | | | [address] | | | | + + + + + + | RBC | RBC AND PLT MORPHOLOGY | | EXTERNAL | | | Morphology | APPEAR NORMALComment: | | LAB | | | | Testing performed at | | | | | | [facility];[address];[place] [address] | | | | + + + + + + + + | Specimen | + + | Blood specimen | | (specimen) | + + + +---------+ + + | Performing | Address | City/State/Zipcode | Phone Number | | Organization | | | | + +---------+ + + | EXTERNAL LAB | | | | + +---------+ + + Lipase (04/04/2016 7:22 PM PST) + + + + + + | Component | Value | Ref Range | Performed | Pathologist | | | | | At | Signature | + + + + + + | Lipase | 109Comment: Testing | 73 - 393 U/L | EXTERNAL | | | | performed at [facility];[address] | | LAB | | | | [address];[place], [place] | | | | | | [address] | | | | + + + [...] + +---------+ + + Comprehensive Metabolic Panel (04/04/2016 7:22 PM PST) + + + + + + | Component | Value | Ref Range | Performed | Pathologist | | | | | At | Signature | + + + + + + | Na | 133 (L)Comment: Testing | 135 - 145 | EXTERNAL | | | | performed at [facility];[address] | mmol/L | LAB | | | | [address];[place] | | | | | | [address] | | | | + + + + + + | K | 3.9Comment: MODERATE | 3.5 - 4.9 | EXTERNAL | | | | HEMOLYSISTesting | mmol/L | LAB | | | | performed at [facility];[address] | | | | | | [address];[place] | | | | | | [address] | | | | + + + + + + | Cl | 97 (L)Comment: Testing | 99 - 109 mmol/L | EXTERNAL | | | | performed at [facility];[address] | | LAB | | | | [address];[place] | | | | | | [address] | | | | + + + + + + | CO2 | 23Comment: Testing | 23 - 32 mmol/L | EXTERNAL | | | | performed at [facility];[address] | | LAB | | | | [address];[place] | | | | | | [address] | | | | + + + + + + | Anion Gap | 18Comment: Testing | 5 - 20 mmol/L | EXTERNAL | | | | performed at [facility];[address] | | LAB | | | | [address];[place] | | | | | | [address] | | | | + + + + + + | Glucose, | 231 (H)Comment: Testing | 65 - 99 mg/dL | EXTERNAL | | | Fasting | performed at [facility];[address] | | LAB | | | | [address];[place] | | | | | | [address] | | | | + + + + + + | BUN | 11Comment: Testing | 8 - 25 mg/dL | EXTERNAL | | | | performed at [facility];[address] | | LAB | | | | [address];[place] | | | | | | [address] | | | | + + + + + + | Creatinine | 0.88Comment: Testing | 0.50 - 1.00 | EXTERNAL | | | | performed at [facility];[address] | mg/dL | LAB | | | | [address];[place] | | | | | | [address] | | | | + + + + + + | BUN/Creatin | 12Comment: Testing | | EXTERNAL | | | ine Ratio | performed at [facility];[address] | | LAB | | | | [address];[place] | | | | | | [address] | | | | + + + + + + | Calcium | 10.0Comment: Testing | 8.5 - 10.5 | EXTERNAL | | | | performed at [facility];[address] | mg/dL | LAB | | | | [address];[place] | | | | | | [address] | | | | + + + + + + | Protein, | 8.9 (H)Comment: Testing | 6.3 - 8.2 g/dL | EXTERNAL | | | Total | performed at [facility];[address] | | LAB | | | | [address];[place] | | | | | | [address] | | | | + + + + + + | Albumin | 4.3Comment: Testing | 3.3 - 4.8 g/dL | EXTERNAL | | | | performed at [facility];[address] | | LAB | | | | [address];[place] | | | | | | [address] | | | | + + + + + + | Globulin | 4.6Comment: Testing | 1.3 - 4.9 g/dL | EXTERNAL | | | | performed at [facility];[address] | | LAB | | | | [address];[place] | | | | | | [address] | | | | + + + + + + | A/G Ratio | 0.9 (L)Comment: Testing | 1.0 - 2.4 | EXTERNAL | | | | performed at [facility];[address] | | LAB | | | | [address];[place] | | | | | | [address] | | | | + + + + + + | Bilirubin | 0.7Comment: Testing | 0.1 - 1.5 mg/dL | EXTERNAL | | | Total | performed at [facility];[address] | | LAB | | | | [address];[place] | | | | | | [address] | | | | + + + + + + | ALP, | 121 (H)Comment: Testing | 35 - 115 U/L | EXTERNAL | | | External | performed at [facility];[address] | | LAB | | | | [address];[place] | | | | | | [address] | | | | + + + + + + | AST | 17Comment: MODERATE | 10 - 45 U/L | EXTERNAL | | | | HEMOLYSISTesting | | LAB | | | | performed at [facility];[address] | | | | | | [address];[place] | | | | | | [address] | | | | + + + + + + | ALT | 18Comment: Testing | 10 - 65 U/L | EXTERNAL | | | | performed at [facility];[address] | | LAB | | | | [address];[place] | | | | | | [address] | | | | + + + [...] | | | | | | at [facility];[address] [place] [address] | | | | | | Blvd;[place] [address] | | | | + + + + + + + + | Specimen | + + | Blood specimen | | (specimen) | + + + +---------+ + + | Performing | Address | City/State/Zipcode | Phone Number | | Organization | | | | + +---------+ + + | EXTERNAL LAB | | | | + +---------+ + + ECG 12 lead (04/04/2016 7:17 PM PST) + + + + + + | Component | Value | Ref Range | Performed | Pathologist | | | | | At | Signature | + + + + + + | DIAGNOSIS: | Sinus tachycardiaRight | | EXTERNAL | | | | atrial | | LAB | | | | enlargementBorderline | | | | | | ECGWhen compared with | | | | | | ECG of 04-MAR-2016 | | | | | | 21:29,Minimal criteria | | | | | | for Inferior infarct are | | | | | | no longer PresentThis | | | | | | ECG contains Unconfirmed | | | | | | Interpretation | | | | | | Statements. See ED | | | | | | Record for Physician | | | | | | Interpretation. | | | | | | Confirmed by MUSE READ | | | | | | ONLY, -COMPUTER ([id number]), | | | | | | market editor ATUL TIPTON | | | | | | (125) on 04/04/2016 | | | | | | 8:47:25 PM | | | | + + + + + + + + | Specimen | + + | | + + + + + | Narrative | Performed At | + + + | Historically converted procedure from [facility] [employer] environment | EXTERNAL LAB | + + + + +---------+ + + | Performing | Address | City/State/Zipcode | Phone Number | | Organization | | | | + +---------+ + + | EXTERNAL LAB | | | | + +---------+ + + documented in this encounter Visit Diagnoses + + | Diagnosis | + + | Elevated blood pressure Elevated blood pressure reading without diagnosis of | | hypertension | + + | Generalized abdominal pain Abdominal pain, generalized | + + | Non-intractable vomiting with nausea, unspecified vomiting type | + + | Hyponatremia Hyposmolality and/or hyponatremia | + + | Hematuria Hematuria, unspecified | + + documented in this encounter
--- OUTSIDE RECORDS SUMMARY | ~2019-04-09 | XMS | Encounter Summary ---
Demographics + + + | Address | [address] | | | [place] [address] | + + + | Home Phone | | + + + | Preferred Language | Unknown | + + + | Marital Status | | + + + | Druze Affiliation | Unknown | + + + | Race | Unknown | + + + | Ethnic Group | Unknown | + + + Author + + + | Author | [facility] [place] | | | and [place] | + + + | Organization | [facility] | | | and [...] Team Providers + +------+ + | Care Director Of Marketing Operations Name | Role | Phone | + +------+ + PCP | Unavailable | + +------+ + Encounter Details +--------+ + + + + | Date | Type | Department | Care Team | Description | +--------+ + + + + | 03/04/ | Hospital | [facility] | Consuelo Fishman | Intractable | | 2016 - | Encounter | [facility] | [address] | abdominal pain; | | | | CARE FLOOR [address] | Gastritis and | | 03/08/ | | [address] | [place] [address] | duodenitis; | | 2016 | | [place] | [phone] | Gastroesophageal | | | | [address] | | reflux disease | | | | [phone] | | without esophagitis; | | | | | | Obesity, | | | | | | unspecified; | | | | | | Smoking; Type 2 | | | | | | diabetes mellitus | | | | | | with hyperglycemia, | | | | | | without long-term | | | | | | current use of | | | | | | insulin ([facility]); | | | | | | Hypokalemia; | | | | | | Intractable vomiting | | | | | | with nausea, | | | | | | unspecified vomiting | | | | | | type; Chest pain, | | | | | | unspecified type; | | | | | | Leukocytosis, | | | | | | unspecified type; | | | | | | Essential | | | | | | hypertension; | | | | | | Epigastric pain; | | | | | | Chest pain, | | | | | | unspecified; | | | | | | Dehydration; | | | | | | Essential | | | | | | hypertension, benign | +--------+ + + + + Social [...] + + + | Blood Pressure | 108/54 | 03/08/2016 11:06 AM | | | | | PST | | + + + + + | Pulse | 65 | 03/08/2016 11:06 AM | | | | | PST | | + + + + + | Temperature | 37.2 C (98.9 F) | 03/08/2016 11:06 AM | | | | | PST | | + + + + + | Respiratory Rate | 16 | 03/08/2016 11:06 AM | | | | | PST | | + + + + + | Oxygen Saturation | - | - | | + + + + + | Inhaled Oxygen | - | - | | | Concentration | | | | + + + + + | Weight | 78 kg (171 lb 15.4 | 03/08/2016 11:06 AM | | | | oz) | PST | | + + + + + | Height | 165.1 cm (5' 5") | 03/08/2016 11:06 AM | | | | | PST | | + + + + + | Body Mass Index | 28.62 | 03/08/2016 11:06 AM | | | | | PST | | + + + + + documented in this encounter Discharge Summaries Clementine Broussard MD - 03/08/2016 3:23 PM PSTFormatting of this note might be different fr om the original. Discharge Summaries by Clementine Broussard MD at 03/08/16 1523 Author: Clementine Broussard MD Service: Hospitalist Author Type: Physician Filed: 03/08/16 1628 Date of Service: 03/08/16 1523 Status: Signed Brim Pouncer Machine Operator: Clementine Broussard MD (Physician) [facility] Service: Hospitalist Discharge Summary Date of Admission: 03/04/2016 Date of Discharge: 03/08/2016 Discharge Provider: CLEMENTINE BROUSSARD MD Treatment Team: Consulting Physician: Ian Witt MD Consulting Physician: Fermin Weston MD Admitting Provider: Consuelo Fishman MD Discharge Diagnoses: Principal Problem: Epigastric abdominal pain Active Problems: Essential hypertension, benign DM (diabetes mellitus) (HCC) Abdominal pain Nausea and vomiting CAD (coronary artery disease) Depression Smoking Gastritis and duodenitis Dehydration Chest pain, unspecified Obesity, unspecified Type 2 diabetes mellitus with hyperglycemia (HCC) Gastroesophageal reflux disease without esophagitis Hypokalemia Leucocytosis Polycythemia BRIEF HISTORY OF PRESENTATION/HOSPITAL COURSE: Caprice Amador is a 60 y.o. female who is obese, history of coronary artery disease is status post stenting about 10 years ago, history of hypertension, history of diabetes type 2 , recent admission on November 20, 2015 until November 24, 2015 for acute gastritis and duodenit is who was supposed to follow up with her gastrointestinal does not was never done, was supp osed to be taking PPI but she claims there were no refills and her prescriptions who present ed with acute onset of 10/10 sharp pain over the epigastric area soon after having her Thank sgiving meal as initiated in nausea and vomiting. She described radiation to the chest somew hat similar to her symptoms 10 years ago when she had the cardiac stent. Her electrocardiogr am showed normal sinus rhythm with right atrial enlargement with nonspecific ST to T wave ch anges. I did not appreciate any ST elevations. Her troponins have been negative 3. She had an unremarkable cardiac stress test in September 04, 2015. Her chest computed axial tomography sc an is unremarkable. Her abdominal and pelvic computed axial tomography scan likewise unremar kable. She was noted to have uncontrolled initially. Coreg was added to her regimen on top of her usual home BP meds. Eventually her BP improved. Her potassium was replaced. I suspect primary hyperaldosteronism and pheochromocytoma. Aldosterone/renin ratio and metanephrine were ordered and pending. These can be followed up as outpatient. Recheck BMP in 1 week. She was also noted to have high Hct and WBC. Hematology was consulted. EPO came back l ow which warrants further work up as outpatient. No phlebotomy was recommended. Most likel y cause is chronic hypoxia due to smoking. Encouraged smoking cessation. TSH is low but T4 is normal. Further outpatient follow up recommended. She was also seen by GI. No repeat EGD done. She was treated for possible gastroparesis . Pain control as needed. Her diet was slowly advanced to general consistency which she to lerated. Her epigastric pain improved. She remained stable and improved. The rest of her hospital stay was unremarkable. DISCHARGE EXAM Vital Signs: Filed Vitals: 03/08/16 0023 03/08/16 0357 03/08/16 0711 03/08/16 1103 BP: 137/64 125/58 112/58 108/54 Pulse: 67 68 65 Temp: 97.8 F (36.6 C) 97.8 F (36.6 C) 98.9 F (37.2 C) TempSrc: Oral Oral Oral Resp: 18 16 16 Height: Weight: 78 kg (171 lb 15.3 oz) SpO2: 93% 93% 97% Physical Exam General appearance: alert, appears stated age and cooperative. Fatigued looking, obese, mil d distress due to pain. Head: Normocephalic, without obvious abnormality, atraumatic Neck: no adenopathy, no carotid bruit, no JVD, supple, symmetrical, trachea midline and thy roid not enlarged, symmetric, no tenderness/mass/nodules Lungs: clear to auscultation bilaterally Heart: regular rate and rhythm, S1, S2 normal, no murmur, click, rub or gallop Abdomen: soft, negative tenderness over the epigastric area; bowel sounds normal; no masses , no organomegaly Musculoskeletal: There is no redness, warmth, or swelling of the joints. Full range of motion noted. Motor strength is 5 out of 5 all extremities bilaterally. Tone is normal. Extremities: extremities normal, atraumatic, no cyanosis or edema Pulses: 2+ and symmetric Skin: Skin color, texture, turgor normal. No rashes or lesions Lymph nodes: Cervical, supraclavicular, and axillary nodes normal. DATA, personally reviewed Recent Labs Lab 03/08/16 0420 03/07/16 0450 03/06/16 0505 WBC 11.07* 14.36* 19.22* HGB 15.8* 17.1* 17.2* HCT 46.6* 50.7* 52.1* PLT 319 335 357 NEUTOPHILPCT 60.06 75.31 83.31 MONOPCT 10.95 7.05 6.44 Recent Labs Lab 03/08/16 0420 03/07/16 0450 03/06/16 1731 03/06/16 0505 NA 139 136 -- 138 K 3.2* 3.0* 3.7 3.4* CL 102 99 -- 101 CO2 28 24 -- 24 BUN 13 12 -- 13 CREATININE 0.7 0.6 -- 0.6 PROT 6.2* 6.7 -- 7.5 BILITOT 0.6 0.5 -- 0.5 ALT 16 14 -- 23 AST 13 11 -- 14 Phosphorus: Lab Results Component Value Date PHOS 2.8 03/08/2016 Recent Labs Lab 03/06/16 0505 03/05/16 0454 MG 2.3 2.1 Recent Labs Lab 03/04/16 2131 APTT 30 INR 1.0 Recent Labs Lab 03/06/16 0505 03/05/16 0454 TSH -- 0.38* FREET4 1.0 -- Recent Labs Lab 03/05/16 1750 03/05/16 1148 03/05/16 0543 CKTOTAL 45 42 44 TROPONINI <0.020 <0.020 <0.020 CKMBINDEX 4.4 4.5 3.0 Component Latest Ref Rng 03/04/2016 03/08/2016 9:31 PM 4:20 AM LIPASE 73 - 393 U/L 171 328 Component Latest Ref Rng 03/06/2016 8:07 AM ERYTHROPOIETIN 3.5 - 24.0 mIU/mL 1.9 (L) Component Latest Ref Rng 03/05/2016 03/05/2016 10:22 AM 10:31 AM Specimen Description BLOOD, PERIPHERAL DRAW BLOOD, PERIPHERAL DRAW SPECIAL REQUESTS RIGHT WRIST RIGHT HAND CULTURE NO GROWTH 2 DAYS NO GROWTH 2 DAYS Component Latest Ref Rng 03/05/2016 4:54 AM HEMOGLOBIN A1C 4.0 - 6.0 % 6.5 (H) ESTIMATED AVG GLUCOSE 140 Component Latest Ref Rng 03/05/2016 4:51 AM D DIMER, QUANTITATIVE 0.19 - 0.50 mg/L FEU 0.37 Radiology, personally reviewed Xr Chest Pa And Lateral 03/04/2016 Normal 2-view chest radiography. [facility] Electronically signed by Kelvin Hopson MD on Mar 04 2016 9:59PM Referring Provider Line: [phone] ID: [id number] Ct Chest Non-contrast 03/05/[address] finding on noncontrast evaluation of the chest. The lungs are clear . [facility] Electronically signed by Nick Williamson MD on Mar 05 2016 2:47AM Referring Provider Line: [phone] ID: [id number] Ct Abdomen Pelvis With Contrast 03/05/2016 1. Diverticulosis, no diverticulitis or other acute inflammatory process. 2. No rmal appendix. 3. No bowel obstruction or fluid collections. 4. Stable subcapsular splenic p erfusion defect the etiology of which is uncertain. This may represent sequela of old infarc t or injury. [facility] Electronically signed by Sylvain Newman MD on Mar 05 2016 1:22AM Ref erring Provider Line: [phone] ID: [id number] Echo Cardiac Adult Complete 03/05/2016 1. Sinus rhythm with extra systolic beats. 2. A 2-dimensional transthoracic ech ocardiogram with m-mode, spectral and color flow Doppler was perfomed. 3. This was a technic ally difficult study with suboptimal views. 4. Left ventricular systolic function is hyperdy namic with an estimated EF of >70%. 5. The left ventricle cavity size is normal. 6. Left carolina tricular wall thickness is normal. 7. The right ventricle is normal in size. 8. The left atr ium is normal in size. 9. The right atrium is normal in size. 10. The aortic valve was not w ell visualized. 11. There is no evidence of aortic regurgitation. 12. There is no evidence o f aortic stenosis. 13. The mitral valve is normal. 14. There is trace mitral regurgitation. 15. The tricuspid valve appears structurally normal. 16. Trace tricuspid regurgitation prese nt. 17. The pulmonic valve was not well visualized. 18. There is no pericardial effusion. 19 . The IVC is normal size (1.5-2.5cm) and collapses >50% with sniff, consistent with central venous pressures of 5-10mmHg. PLAN -discharge home. -follow medications as outlined below. -follow up with providers as indicated. Disposition: Home Condition: Stable Code Status: Full Code Discharge Instructions Basic metabolic panel Standing Status: Future Standing Exp. Date: 03/08/17 Call MD for: Temperature > 100.4F (38C) Call MD for: Severe Uncontrolled Pain Follow up: Ian Witt MD [address] [facility] [address] Schedule an appointment as soon as possible for a visit in 2 weeks post hospital follow up DO CARLOS Bowers [address] [place] [address] Schedule an appointment as soon as possible for a visit in 1 week post hospital follow up. recheck electrolytes and BP. also follow up on sylvia/renin ratio and metanephrines. Medication List START taking these medications carvedilol 12.5 MG tablet QTY: 60 tablet Refills: 0 Commonly known as: COREG Take 1 tablet by mouth 2 (two) times daily with meals. metoclopramide 10 MG tablet QTY: 90 tablet Refills: 0 Commonly known as: REGLAN Take 1 tablet by mouth 3 (three) times daily before meals. pantoprazole 40 MG tablet QTY: 30 tablet Refills: 0 Commonly known as: PROTONIX Take 1 tablet by mouth every morning before breakfast. Start taking on: 03/09/2016 potassium chloride SA 20 MEQ tablet QTY: 60 tablet Refills: 0 Commonly known as: K-DUR,KLOR-CON Take 2 tablets by mouth daily with breakfast. senna-docusate 8.6-50 MG per tablet QTY: 60 tablet Refills: 0 Commonly known as: PERICOLACE Take 2 tablets by mouth nightly. CONTINUE taking these medications amLODIPine 10 MG tablet Refills: 0 Commonly known as: NORVASC clopidogrel 75 MG tablet Refills: 0 Commonly known as: PLAVIX estradiol 1 MG tablet Refills: 0 Commonly known as: ESTRACE HYDROcodone-acetaminophen 7.5-325 MG per tablet Refills: 0 Commonly known as: NORCO hydrocortisone 25 MG suppository QTY: 12 suppository Refills: 0 Commonly known as: ANUSOL-HC Place 1 suppository rectally 2 (two) times daily as needed for Hemorrhoids. Place into the rectum after each bowel movement and at night as needed insulin aspart protamine-insulin aspart (70-30) 100 UNIT/ML injection QTY: 3 mL Refills: 1 Commonly known as: NOVOLOG 70/30 Inject 15 Units into the skin 2 (two) times daily before meals. metFORMIN 500 MG tablet QTY: 60 tablet Refills: 1 Commonly known as: GLUCOPHAGE Take 2 tablets by mouth 2 (two) times daily with meals. oxybutynin 5 MG tablet Refills: 0 Commonly known as: DITROPAN pravastatin 40 MG tablet Refills: 0 Commonly known as: PRAVACHOL ramipril 10 MG capsule Refills: 0 Commonly known as: ALTACE sertraline 50 MG tablet Refills: 0 Commonly known as: ZOLOFT sucralfate 1 GM/10ML suspension QTY: 420 mL Refills: 0 Commonly known as: CARAFATE Take 10 mLs by mouth every 6 (six) hours. traMADol 50 MG tablet Refills: 0 Commonly known as: ULTRAM vitamin D2 (ergocalciferol) [address] UNITS capsule Refills: 0 Where to Get Your Medications You can get these medications from any pharmacy Bring a paper prescription for each of these medications - carvedilol 12.5 MG tablet - metoclopramide 10 MG tablet - pantoprazole 40 MG tablet - potassium chloride SA 20 MEQ tablet - senna-docusate 8.6-50 MG per tablet - sucralfate 1 GM/10ML suspension Discharge took 45 minutes, to include final examination, discussion of admission, and prepa ration of prescriptions, instructions for on-going care, follow-up and documentation of disc harge summary. Dictation and university registrar or software, [employer], used which may contain error for similar s ounding words even after review. Personal communication requested for any clarification. CLEMENTINE BROUSSARD MD 03/08/2016 4:17 PM documented in this encounter Progress Notes Conversion Transaction, Provider Unknown - 03/08/2016 3:22 PM PSTFormatting of this note m ight be different from the original. Nurse Progress Note by Heather Ziegler RN at 03/08/16 1522 Author: Heather Ziegler RN Service: (none) Author Type: Registered Nurse Filed: 03/08/16 1523 Date of Service: 03/08/16 1522 Status: Signed Brim Pouncer Machine Operator: Heather Ziegler RN (Registered Nurse) Patient signed and voiced understanding of discharge instructions and medications. Home wit h via private vehicle. IV removed, tele DCd. Patient refused escort service and ambu lated out of facility with at side. HEATHER ZIEGLER RN 03/08/2016 onver glory Transaction, Provider Unknown - 03/08/2016 1:10 PM PST Case Management by Rochelle Amaya RN at 03/08/16 1310 Author: Rochelle Amaya RN Service: (none) Author Type: Registered Nurse Filed: 03/08/16 1311 Date of Service: 03/08/16 1310 Status: Signed Brim Pouncer Machine Operator: Rochelle Amaya RN (Registered Nurse) 03/08/16 1310 Anticipated Disposition Facility Type Home Discharge planning: CM met with pt to discuss discharge planning, no new needs identified, will discharge home with spouse, aware CM is available if any new needs arise. Fermin Santos MD - 03/07/2016 12:49 PM PSTFormatting of this note might be different fro m the original. Progress Notes by Fermin Weston MD at 03/07/16 1660 Author: Fermin Weston MD Service: (none) Author Type: Physician Filed: 03/07/16 9371 Date of Service: 03/07/161248 Status: Signed Brim Pouncer Machine Operator: Fermin Weston MD (Physician) [facility] Service: Gastroenterology Progress Note Hospital Day: LOS: 2 days Post-Op Day: * No surgery found * SUBJECTIVE: feeling better. Her nausea , lower sternal pain and epigastric pain are improve d at least 50 %. Tolerates clear liquid without vomiting. Scheduled Medications amLODIPine 10 mg Oral Daily atorvastatin 20 mg Oral Nightly carvedilol 12.5 mg Oral BID WC clopidogrel 75 mg Oral Daily enoxaparin 40 mg Subcutaneous Q24H insulin glargine 10 Units Subcutaneous Nightly insulin lispro (human) 0-14 Units Subcutaneous TID AC insulin lispro (human) 0-7 Units Subcutaneous Nightly lisinopril 40 mg Oral Daily metoclopramide 5 mg Intravenous Q6H nicotine 1 patch Transdermal Daily pantoprazole 40 mg Intravenous QAM AC polyethylene glycol 17 g Oral Daily senna-docusate 2 tablet Oral Nightly sertraline 50 mg Oral Daily sucralfate 1 g Oral 4x Daily AC & HS Continuous Infusions dextrose sodium chloride 75 mL/hr at 03/07/16 0954 PRN Medications acetaminophen OR acetaminophen, aluminum-magnesium hydroxide-simethicone, dextrose, dex trose, dextrose, enalaprilat, glucagon, glucagon, hydrALAZINE, HYDROcodone-acetaminophen, hy drocortisone, HYDROmorphone OR HYDROmorphone, LORazepam OR LORazepam, nitroGLYCERIN, ondansetron OR ondansetron, phosphorus OR sodium phosphate IVPB 15 mmol OR sodi um phosphate IVPB 30 mmol, potassium chloride OR potassium chloride OR potassium chl oride, promethazine, zolpidem OBJECTIVE Vital Signs: BP 163/80 mmHg | Pulse 78 | Temp(Src) 99.6 F (37.6 C) (Oral) | Resp 18 | Ht 1.651 m (5' 5") | Wt 78.9 kg (173 lb 15.1 oz) | BMI 28.95 kg/m2 | SpO2 94% Temp: [98.5 F (36.9 C)-99.6 F (37.6 C)] 99.6 F (37.6 C) (03/07 114) BP: (151-188)/(68-88) 163/80 mmHg (03/07 114) Heart Rate: [78-94] 78 (03/07 114) Resp: [16-20] 18 (03/07 114) SpO2: [94 %-96 %] 94 % (03/07 1143) Weight: [78.9 kg (173 lb 15.1 oz)] 78.9 kg (173 lb 15.1 oz) (03/07 311) General Appearance: Alert, cooperative, no distress, appears stated age Head: Normocephalic, without obvious abnormality, atraumatic Eyes: PERRL, conjunctiva/corneas clear, EOM's intact, fundi benign, both eyes Ears: Normal TM's and external ear canals, both ears Nose: Nares normal, septum midline, mucosa normal, no drainage or sinus tenderness Throat: Lips, mucosa, and tongue normal; teeth and gums normal Neck: Supple, symmetrical, trachea midline, no adenopathy; thyroid: no enlargement/tenderness/nodules; no carotid bruit or JVD Back: Symmetric, no curvature, ROM normal, no CVA tenderness Lungs: Clear to auscultation bilaterally, respirations unlabored Chest Wall: No tenderness or deformity Heart: Regular rate and rhythm, S1 and S2 normal, no murmur, rub or gallop Abdomen: Soft, non-tender, bowel sounds active all four quadrants, no masses, no organomegaly Extremities: Extremities normal, atraumatic, no cyanosis or edema Pulses: 2+ and symmetric all extremities Skin: Skin color, texture, turgor normal, no rashes or lesions Lymph nodes: Cervical, supraclavicular, and axillary nodes normal Neurologic: CNII-XII intact, normal strength, sensation and reflexes throughout DATA CBC: Lab Results Component Value Date WBC 14.36* 03/07/2016 RBC 5.55* 03/07/2016 HGB 17.1* 03/07/2016 HCT 50.7* 03/07/2016 MCV 91.3 03/07/2016 MCH 30.7 03/07/2016 MCHC 33.7 03/07/2016 RDW 41.6 03/07/2016 PLT 335 03/07/2016 MPV 8.8 03/07/2016 DIFFTYPE AUTOMATED 03/07/2016 CMP: Lab Results Component Value Date NA 136 03/07/2016 K 3.0* 03/07/2016 CL 99 03/07/2016 CO2 24 03/07/2016 ANIONGAP 16 03/07/2016 GLUF 172* 03/07/2016 BUN 12 03/07/2016 CREATININE 0.6 03/07/2016 BCR 20 03/07/2016 CA 9.5 03/07/2016 CA 10.0 11/16/2015 PROT 6.7 03/07/2016 ALB 3.3 03/07/2016 GLOB 3.4 03/07/2016 BILITOT 0.5 03/07/2016 ALP 80 03/07/2016 AST 11 03/07/2016 ALT 14 03/07/2016 EGFR >60 03/07/2016 PT/INR: Lab Results Component Value Date INR 1.0 03/04/2016 Xr Chest Pa And Lateral 03/04/2016 Normal 2-view chest radiography. [facility] Electronically signed by Kelvin Hopson MD on Mar 04 2016 9:59PM Referring Provider Line: [phone] ID: [id number] Ct Chest Non-contrast 03/05/[address] finding on noncontrast evaluation of the chest. The lungs are clear . [facility] Electronically signed by Nick Williamson MD on Mar 05 2016 2:47AM Referring Provider Line: [phone] ID: [id number] Ct Abdomen Pelvis With Contrast 03/05/2016 1. Diverticulosis, no diverticulitis or other acute inflammatory process. 2. No rmal appendix. 3. No bowel obstruction or fluid collections. 4. Stable subcapsular splenic p erfusion defect the etiology of which is uncertain. This may represent sequela of old infarc t or injury. [facility] Electronically signed by Sylvain Newman MD on Mar 05 2016 1:22AM Ref erring Provider Line: [phone] ID: [id number] Echo Cardiac Adult Complete 03/05/2016 1. Sinus rhythm with extra systolic beats. 2. A 2-dimensional transthoracic ech ocardiogram with m-mode, spectral and color flow Doppler was perfomed. 3. This was a technic ally difficult study with suboptimal views. 4. Left ventricular systolic function is hyperdy namic with an estimated EF of >70%. 5. The left ventricle cavity size is normal. 6. Left carolina tricular wall thickness is normal. 7. The right ventricle is normal in size. 8. The left atr ium is normal in size. 9. The right atrium is normal in size. 10. The aortic valve was not w ell visualized. 11. There is no evidence of aortic regurgitation. 12. There is no evidence o f aortic stenosis. 13. The mitral valve is normal. 14. There is trace mitral regurgitation. 15. The tricuspid valve appears structurally normal. 16. Trace tricuspid regurgitation prese nt. 17. The pulmonic valve was not well visualized. 18. There is no pericardial effusion. 19 . The IVC is normal size (1.5-2.5cm) and collapses >50% with sniff, consistent with central venous pressures of 5-10mmHg. PROBLEM LIST Principal Problem: Epigastric abdominal pain Active Problems: Essential hypertension, benign DM (diabetes mellitus) (HCC) Abdominal pain Nausea and vomiting CAD (coronary artery disease) Depression Smoking Gastritis and duodenitis Dehydration Chest pain, unspecified Obesity, unspecified Type 2 diabetes mellitus with hyperglycemia (HCC) Gastroesophageal reflux disease without esophagitis Hypokalemia ASSESSMENT & PLAN Improving nausea, lower sternal and epigastric pain Recommendation Continue gastroparesis diet, empiric metoclopramide and PPI Possible could be discharged home in am if continues to improve The necessity of quit smoking was again explained to the patient. Disposition: inpatient Code Status: Full Code FERMIN WESTON MD 03/07/2016 Angel Sol MD - 03/07/2016 8:26 AM PSTFormatting of this note might be different from the lee girenny. Progress Notes by Clementine Broussard MD at 03/07/16825 Author: Clementine Broussard MD Service: Hospitalist Author Type: Physician Filed: 03/07/1697 Date of Service: 03/07/16825 Status: Signed Brim Pouncer Machine Operator: Clementine Broussard MD (Physician) [facility] Service: Hospitalist Progress Note Hospital Day: LOS: 2 days SUBJECTIVE Patient Summary: 60-year-old female smoker who is obese, history of coronary artery d henrique is status post stenting about 10 years ago, history of hypertension, history of diabe derek type 2, recent admission on November 20, 2015 until November 24, 2015 for acute gastritis an d duodenitis who was supposed to follow up with her gastrointestinal does not was never done , was supposed to be taking PPI but she claims there were no refills and her prescriptions justin pickard presented with acute onset of 10/10 sharp pain over the epigastric area soon after having her Thanksgiving meal as initiated in nausea and vomiting. She described radiation to the c hest somewhat similar to her symptoms 10 years ago when she had the cardiac stent. Her elect rocardiogram showed normal sinus rhythm with right atrial enlargement with nonspecific ST to T wave changes. I did not appreciate any ST elevations. Her troponins have been negative 3. She had an unremarkable cardiac stress test in sep 04 2015. Her chest computed axial og graphy scan is unremarkable. Her abdominal and pelvic computed axial tomography scan likewis e unremarkable. Events Overnight: 03/05/2016 Seen and examined patient. She continues to have epigastric pain. After further questioning, it became apparent that the patient's symptoms is actually related to her gastr ointestinal issues. She continues to smoke half a pack per day. I reviewed her laboratories and imaging findings. These were all discussed in details. 03/06/2016 Seen and examined pain. Some improvement in epigastric pain. Now describes isabela n with breathing and changes in position. No fever or chills. BP still elevated but coming down. 03/07/2016 Seen and examined patient. Her epigastric pain persist 5-7/10. She is requirin g IV dilaudid. No BM x 3 days. Positive nausea. No BM x 3 days. Scheduled Medications amLODIPine 10 mg Oral Daily atorvastatin 20 mg Oral Nightly carvedilol 12.5 mg Oral BID WC clopidogrel 75 mg Oral Daily enoxaparin 40 mg Subcutaneous Q24H insulin glargine 10 Units Subcutaneous Nightly insulin lispro (human) 0-14 Units Subcutaneous TID AC insulin lispro (human) 0-7 Units Subcutaneous Nightly lisinopril 40 mg Oral Daily metoclopramide 5 mg Intravenous Q6H nicotine 1 patch Transdermal Daily pantoprazole 40 mg Intravenous QAM AC polyethylene glycol 17 g Oral Daily senna-docusate 2 tablet Oral Nightly sertraline 50 mg Oral Daily sucralfate 1 g Oral 4x Daily AC & HS Continuous Infusions dextrose sodium chloride 75 mL/hr at 03/06/16 194 PRN Medications acetaminophen OR acetaminophen, aluminum-magnesium hydroxide-simethicone, dextrose, dex trose, dextrose, enalaprilat, glucagon, glucagon, hydrALAZINE, HYDROcodone-acetaminophen, hy drocortisone, HYDROmorphone OR HYDROmorphone, LORazepam OR LORazepam, nitroGLYCERIN, ondansetron OR ondansetron, phosphorus OR sodium phosphate IVPB 15 mmol OR sodi um phosphate IVPB 30 mmol, potassium chloride OR potassium chloride OR potassium chl oride, promethazine, zolpidem OBJECTIVE Vital Signs: Filed Vitals: 03/06/16 1932 03/07/16 0311 03/07/16 0347 03/07/16 0747 BP: 158/72 169/80 157/72 177/81 Pulse: 90 88 94 Temp: 98.5 F (36.9 C) 99.2 F (37.3 C) 98.8 F (37.1 C) TempSrc: Oral Oral Oral Resp: 18 16 18 Height: Weight: 78.9 kg (173 lb 15.1 oz) SpO2: 96% 95% 96% Physical Exam General appearance: alert, appears stated age and cooperative. Fatigued looking, obese, mil d distress due to pain. Head: Normocephalic, without obvious abnormality, atraumatic Neck: no adenopathy, no carotid bruit, no JVD, supple, symmetrical, trachea midline and thy roid not enlarged, symmetric, no tenderness/mass/nodules Lungs: clear to auscultation bilaterally Heart: regular rate and rhythm, S1, S2 normal, no murmur, click, rub or gallop Abdomen: soft, positive tenderness over the epigastric area; bowel sounds normal; no masses , no organomegaly Musculoskeletal: There is no redness, warmth, or swelling of the joints. Full range of mo tion noted. Motor strength is 5 out of 5 all extremities bilaterally. Tone is normal. Extremities: extremities normal, atraumatic, no cyanosis or edema Pulses: 2+ and symmetric Skin: Skin color, texture, turgor normal. No rashes or lesions Lymph nodes: Cervical, supraclavicular, and axillary nodes normal. DATA, personally reviewed Recent Labs Lab 03/07/16 0450 03/06/16 0505 03/05/16 0454 03/04/16 2131 WBC 14.36* 19.22* 18.47* 14.18* HGB 17.1* 17.2* 16.9* 17.6* HCT 50.7* 52.1* 50.2* 51.1* PLT 335 357 327 359 NEUTOPHILPCT 75.31 83.31 -- 87.39 MONOPCT 7.05 6.44 -- 2.16 Recent Labs Lab 03/07/16 0450 03/06/16 1731 03/06/16 0505 03/05/16 0454 NA 136 -- 138 138 K 3.0* 3.7 3.4* 3.7 CL 99 -- 101 103 CO2 24 -- 24 23 BUN 12 -- 13 12 CREATININE 0.6 -- 0.6 0.8 PROT 6.7 -- 7.5 8.1 BILITOT 0.5 -- 0.5 0.4 ALT 14 -- 23 20 AST 11 -- 14 13 Phosphorus: Lab Results Component Value Date PHOS 2.1* 03/07/2016 Recent Labs Lab 03/06/16 0505 03/05/16 0454 MG 2.3 2.1 Recent Labs Lab 03/04/16 2131 APTT 30 INR 1.0 Recent Labs Lab 03/06/16 0505 03/05/16 0454 TSH -- 0.38* FREET4 1.0 -- Recent Labs Lab 03/05/16 1750 03/05/16 1148 03/05/16 0543 CKTOTAL 45 42 44 TROPONINI <0.020 <0.020 <0.020 CKMBINDEX 4.4 4.5 3.0 Component Latest Ref Rng 03/05/2016 3:13 AM COLOR UA STRAW CLARITY CLEAR Specific [place], UA 1.002 - 1.030 1.033 (H) Leukocyes, UA NEGATIVE NEGATIVE Nitrite, UA NEGATIVE NEGATIVE UROBILINOGEN <1.1 mg/dL NORMAL PROTEIN NEGATIVE mg/dL 100 (A) PH,URINE 5.0 - 8.0 6.0 BLOOD NEGATIVE SMALL (A) KETONES NEGATIVE mg/dL TRACE (A) BILIRUBIN NEGATIVE NEGATIVE GLUCOSE NEGATIVE mg/dL >500 (A) WBC 0 - 5 /hpf 0-2 Blood, UA 0 - 5 /hpf 6-10 BACTERIA NONE SEEN NONE SEEN Epithelial Cells 16-25 Component Latest Ref Rng 03/04/2016 9:31 PM LIPASE 73 - 393 U/L 171 Radiology, personally reviewed Xr Chest Pa And Lateral 03/04/2016 Normal 2-view chest radiography. [facility] Electronically signed by Kelvin Hopson MD on Mar 04 2016 9:59PM Referring Provider Line: [phone] ID: [id number] Ct Chest Non-contrast 03/05/[address] finding on noncontrast evaluation of the chest. The lungs are clear . [facility] Electronically signed by Nick Williamson MD on Mar 05 2016 2:47AM Referring Provider Line: [phone] ID: [id number] Ct Abdomen Pelvis With Contrast 03/05/2016 1. Diverticulosis, no diverticulitis or other acute inflammatory process. 2. No rmal appendix. 3. No bowel obstruction or fluid collections. 4. Stable subcapsular splenic p erfusion defect the etiology of which is uncertain. This may represent sequela of old infarc t or injury. [facility] Electronically signed by Sylvain Newman MD on Mar 05 2016 1:22AM Ref erring Provider Line: [phone] ID: [id number] PROBLEM LIST Principal Problem: Epigastric abdominal pain Active Problems: Essential hypertension, benign DM (diabetes mellitus) (HCC) Abdominal pain Nausea and vomiting CAD (coronary artery disease) Depression Smoking Gastritis and duodenitis Dehydration Chest pain, unspecified Obesity, unspecified Type 2 diabetes mellitus with hyperglycemia (HCC) Gastroesophageal reflux disease without esophagitis Leukocytosis Hypokalemia Hypophosphatemia ASSESSMENT & PLAN 03/05/2016 -60-year-old female with several cardiac risk factors presenting with epigastric pain radia ting to the chest. Her history and her recent workup is more suggestive of a gastrointestina l source of her pain. Her troponins have been negative. I reviewed the electrocardiogram and compare it with the on 1 which did not show any major changes. On exam, she is tender on th e epigastric area. -I ordered clear liquids for now. The patient could not tolerate general diet at this time because of her nausea and vomiting. -Her abdominal computed axial tomography scan and lipase are unremarkable. At this point in time, I do not think that she will need urgent endoscopy. I will start her back on PPI twic e a day. Also order sucralfate. If persistent symptoms however, will consult gastrointestshaun l. -Pain control with prn Dilaudid in the meantime. -For her hypertension, this is not well controlled at this time. Continue enalapril and hyd ralazine prn. She is on amlodipine and lisinopril. I will add Coreg and titrate accordingly. If needed, I will add a diuretic versus clonidine. -For her diabetes, current A1c is 6.5. Continue Humalog sliding scale. -For her nausea, vomiting and abdominal pain, symptomatic treatment has been ordered. -She will continue to take Plavix for her coronary artery disease. Again based on presentin g symptoms and findings so far, I suspect gastrointestinal source of her pain. -For her dehydration, I will have to lower the IV rate down to 75 cc an hour due to uncontr olled hypertension. Her renal function is normal. -Her leukocytosis is actually a chronic finding. I suspect there is underlying hematologic disorder. This can further be worked up as an outpatient. 03/06/2016 -epigastric pain persist. Based on exam and history, I doubt cardia cause. I will consult GI. She might need repeat EGD. -continue PPI BID and sucralfate. -continue clear liquids. If no procedure, will advance diet slowly. -BP still spiking high but trending down. Pain might be contributing. She was started on coreg. Goal systolic for now 150-160. 120 systolic might be a rapid drop. -continue humalog SSi for her DM. -her high WBC could be reactive. She is not on any meds to cause this. Also no signs of i nfection and no fever. Noted polycythemia which could be related to her smoking history. I will consult hematology. Check EPO level and peripheral smear. -replace K and phos and monitor levels. -TSH is low but T4 is normal. Outpatient follow up of her thyroid. -continue all other essential regimen. 03/07/2016 -BP still high. Increased coreg to 12.5 BID. Continue amlodipine 10 and lisinopril 40. -for her epigastric pain, there is tenderness on palpation. Discussed with Dr. Christensen, no u rgent need for EGD now. Advance to DM gastroparesis diet. Started on reglan. Also added s tool softeners and laxatives. Reduced PPI to daily and continue carafate. -for her high WBC and Hgb, I discussed the case with Dr. Witt. Slides is not consistent w ith polycythemia vera. Awaiting EPO level. He did not suggest phlebotomy at this time. -replacing K and Phos. -discussed pain control. Will make use oral narcotic and try to avoid IV dilaudid if possi ble. Discussed with patient and she agreed. -continue all other essential regimen. DVT prophylaxis: in place GI prophylaxis: in place Disposition: Inpatient Code Status: Full Code Dictation and university registrar or software, [employer], used which may contain error for similar s ounding words even after review. Personal communication requested for any clarification. CLEMENTINE BROUSSARD MD 03/07/2016 8:26 AM onversion Transact ion, Provider Unknown - 03/06/2016 3:16 PM PSTFormatting of this note might be different fr om the original. Progress Notes by Emily Pearson RD at 03/06/16 9420 Author: Emily Pearson RD Service: (none) Author Type: Registered Dietitian Filed: 03/06/161516 Date of Service: 03/06/161515 Status: Signed Brim Pouncer Machine Operator: Emily Pearson RD (Aircraft Hydraulic Equipment Mechanic) 03/06/16 1405 Subjective Timepoint Admit Pt c/o Pt triggered for wt loss. Admit dx of epigastric pain and complaints of N/V abd and back pain. Hx of acute malnutrition, gastritis and duodenitis. Diet Experience Self-selected diet(s) followed Pt states she was diagnosed with DM a few months ago and has cut out a lot of concentrated sweets and soda. She states she lost weight in november when sh e was ill and not eating well but never gained it back. She believes she kept it off because of some dietary changes. Fluid / Beverage Intake Oral Fluids Amount CL ad tian Food Intake Amount of Food Pt is on clears. She states she is afraid to have too much as she has N/V. O rdered diet sunny harjeet and broth. Type of Food / Meals Clear liquids Nutrition-Focused Physical Findings Digestive System (Mouth to Rectum) n/v, pain-back and abd Anthropometrics Weight change Admit wt of 79 kg and BMI of 29 (overweight). Pt was 89.6 kg on 11-15-15 admit. This is a wt loss of 10.6 kg (12%) in three months and considered severe. Biochemical data, medical tests, and procedures reviewed Biochemical data, medical tests, and procedures reviewed BGs in the 200s-high dose correcti onal scale Humalog ordered. A1C 6.5 (H)-within goal for DM. P 2.2 (L)-repletion ordered. Estimated Energy Needs Total Energy Estimated Needs [id number] kcal Method for Estimating Needs 25-30 kcal/kg/day based on adj wt of 62.4 kg Estimated Protein Needs Total Protein Estimated Needs 75-94 g Method for Estimating Needs 1.2-1.5 g/kg/day based on adj wt of 62.4 kg Recommendations Recommended energy needs ADAT per MD. Recommend diabetic diet to provide consistent intake of carbs. Provide supplements when diet advances. Will continue to monitor as indicated. Nutritional Risk Nutritional risk Moderate / high Nutritional risk comment Possible malnutrition. Will monitor intake closely. Follow up date 03/10/[address] Clementine Sol MD - 03/06/2016 8:21 AM PST Progress Notes by Clementine Broussard MD at 03/06/16820 Author: Clementine Broussard MD Service: Hospitalist Author Type: Physician Filed: 03/06/16830 Date of Service: 03/06/16820 Status: Signed Brim Pouncer Machine Operator: Clementine Broussard MD (Physician) [facility] Service: Hospitalist Progress Note Hospital Day: LOS: 1 day SUBJECTIVE Patient Summary: 60-year-old female smoker who is obese, history of coronary artery d henrique is status post stenting about 10 years ago, history of hypertension, history of diabe derek type 2, recent admission on November 20, 2015 until November 24, 2015 for acute gastritis an d duodenitis who was supposed to follow up with her gastrointestinal does not was never done , was supposed to be taking PPI but she claims there were no refills and her prescriptions justin pickard presented with acute onset of 10/10 sharp pain over the epigastric area soon after having her Thanksgiving meal as initiated in nausea and vomiting. She described radiation to the c hest somewhat similar to her symptoms 10 years ago when she had the cardiac stent. Her elect rocardiogram showed normal sinus rhythm with right atrial enlargement with nonspecific ST to T wave changes. I did not appreciate any ST elevations. Her troponins have been negative 3. She had an unremarkable cardiac stress test in sep 04 2015. Her chest computed axial og graphy scan is unremarkable. Her abdominal and pelvic computed axial tomography scan likewis e unremarkable. Events Overnight: 03/05/2016 Seen and examined patient. She continues to have epigastric pain. After further questioning, it became apparent that the patient's symptoms is actually related to her gastr ointestinal issues. She continues to smoke half a pack per day. I reviewed her laboratories and imaging findings. These were all discussed in details. 03/06/2016 Seen and examined pain. Some improvement in epigastric pain. Now describes isabela n with breathing and changes in position. No fever or chills. BP still elevated but coming down. Scheduled Medications amLODIPine 10 mg Oral Daily atorvastatin 20 mg Oral Nightly carvedilol 6.25 mg Oral BID WC clopidogrel 75 mg Oral Daily enoxaparin 40 mg Subcutaneous Q24H influenza vaccine quadrivalent 0.5 mL Intramuscular Once Immunization insulin lispro (human) 0-14 Units Subcutaneous TID AC insulin lispro (human) 0-7 Units Subcutaneous Nightly lisinopril 40 mg Oral Daily nicotine 1 patch Transdermal Daily pantoprazole 40 mg Intravenous BID sertraline 50 mg Oral Daily sucralfate 1 g Oral 4x Daily AC & HS Continuous Infusions dextrose sodium chloride 75 mL/hr at 03/06/16 0339 PRN Medications acetaminophen OR acetaminophen, aluminum-magnesium hydroxide-simethicone, dextrose, dex trose, dextrose, enalaprilat, glucagon, glucagon, hydrALAZINE, HYDROcodone-acetaminophen, hy drocortisone, HYDROmorphone OR HYDROmorphone, LORazepam OR LORazepam, nitroGLYCERIN, ondansetron OR ondansetron, polyethylene glycol, promethazine, zolpidem OBJECTIVE Vital Signs: Filed Vitals: 03/05/16 2319 03/06/16 0327 03/06/16 0407 03/06/16 0810 BP: 179/86 203/89 158/74 171/81 Pulse: 94 98 92 90 Temp: 99.1 F (37.3 C) 98.8 F (37.1 C) 98.8 F (37.1 C) TempSrc: Oral Oral Oral Resp: Height: Weight: 80 kg (176 lb 5.9 oz) SpO2: 96% 97% 96% Physical Exam General appearance: alert, appears stated age and cooperative. Fatigued looking, obese, mil d distress due to pain. Head: Normocephalic, without obvious abnormality, atraumatic Neck: no adenopathy, no carotid bruit, no JVD, supple, symmetrical, trachea midline and thy roid not enlarged, symmetric, no tenderness/mass/nodules Lungs: clear to auscultation bilaterally Heart: regular rate and rhythm, S1, S2 normal, no murmur, click, rub or gallop Abdomen: soft, positive tenderness over the epigastric area; bowel sounds normal; no masses , no organomegaly Musculoskeletal: There is no redness, warmth, or swelling of the joints. Full range of mo tion noted. Motor strength is 5 out of 5 all extremities bilaterally. Tone is normal. Extremities: extremities normal, atraumatic, no cyanosis or edema Pulses: 2+ and symmetric Skin: Skin color, texture, turgor normal. No rashes or lesions Lymph nodes: Cervical, supraclavicular, and axillary nodes normal. DATA, personally reviewed Recent Labs Lab 03/06/16 0505 03/05/16 0454 03/04/16 2131 WBC 19.22* 18.47* 14.18* HGB 17.2* 16.9* 17.6* HCT 52.1* 50.2* 51.1* PLT 357 327 359 NEUTOPHILPCT 83.31 -- 87.39 MONOPCT 6.44 -- 2.16 Recent Labs Lab 03/06/16 0505 03/05/16 0454 03/04/16 2131 NA 138 138 136 K 3.4* 3.7 3.9 CL 101 103 101 CO2 24 23 24 BUN 13 12 12 CREATININE 0.6 0.8 0.97 PROT 7.5 8.1 8.8* BILITOT 0.5 0.4 0.3 ALT 23 20 20 AST 14 13 14 Phosphorus: Lab Results Component Value Date PHOS 2.2* 03/06/2016 Recent Labs Lab 03/06/16 0505 03/05/16 0454 MG 2.3 2.1 Recent Labs Lab 03/04/16 2131 APTT 30 INR 1.0 Recent Labs Lab 03/06/16 0505 03/05/16 0454 TSH -- 0.38* FREET4 1.0 -- Recent Labs Lab 03/05/16 1750 03/05/16 1148 03/05/16 0543 CKTOTAL 45 42 44 TROPONINI <0.020 <0.020 <0.020 CKMBINDEX 4.4 4.5 3.0 Component Latest Ref Rng 03/05/2016 3:13 AM COLOR UA STRAW CLARITY CLEAR Specific [place], UA 1.002 - 1.030 1.033 (H) Leukocyes, UA NEGATIVE NEGATIVE Nitrite, UA NEGATIVE NEGATIVE UROBILINOGEN <1.1 mg/dL NORMAL PROTEIN NEGATIVE mg/dL 100 (A) PH,URINE 5.0 - 8.0 6.0 BLOOD NEGATIVE SMALL (A) KETONES NEGATIVE mg/dL TRACE (A) BILIRUBIN NEGATIVE NEGATIVE GLUCOSE NEGATIVE mg/dL >500 (A) WBC 0 - 5 /hpf 0-2 Blood, UA 0 - 5 /hpf 6-10 BACTERIA NONE SEEN NONE SEEN Epithelial Cells 16-25 Component Latest Ref Rng 03/04/2016 9:31 PM LIPASE 73 - 393 U/L 171 Radiology, personally reviewed Xr Chest Pa And Lateral 03/04/2016 Normal 2-view chest radiography. [facility] Electronically signed by Kelvin Hopson MD on Mar 04 2016 9:59PM Referring Provider Line: [phone] ID: [id number] Ct Chest Non-contrast 03/05/[address] finding on noncontrast evaluation of the chest. The lungs are clear . [facility] Electronically signed by Nick Williamson MD on Mar 05 2016 2:47AM Referring Provider Line: [phone] ID: [id number] Ct Abdomen Pelvis With Contrast 03/05/2016 1. Diverticulosis, no diverticulitis or other acute inflammatory process. 2. No rmal appendix. 3. No bowel obstruction or fluid collections. 4. Stable subcapsular splenic p erfusion defect the etiology of which is uncertain. This may represent sequela of old infarc t or injury. [facility] Electronically signed by Sylvain Newman MD on Mar 05 2016 1:22AM Ref erring Provider Line: [phone] ID: [id number] PROBLEM LIST Principal Problem: Epigastric abdominal pain Active Problems: Essential hypertension, benign DM (diabetes mellitus) (HCC) Abdominal pain Nausea and vomiting CAD (coronary artery disease) Depression Smoking Gastritis and duodenitis Dehydration Chest pain, unspecified Obesity, unspecified Type 2 diabetes mellitus with hyperglycemia (HCC) Gastroesophageal reflux disease without esophagitis Leukocytosis Hypokalemia Hypophosphatemia ASSESSMENT & PLAN 03/05/2016 -60-year-old female with several cardiac risk factors presenting with epigastric pain radia ting to the chest. Her history and her recent workup is more suggestive of a gastrointestina l source of her pain. Her troponins have been negative. I reviewed the electrocardiogram and compare it with the on which did not show any major changes. On exam, she is tender on th e epigastric area. -I ordered clear liquids for now. The patient could not tolerate general diet at this time because of her nausea and vomiting. -Her abdominal computed axial tomography scan and lipase are unremarkable. At this point in time, I do not think that she will need urgent endoscopy. I will start her back on PPI twic e a day. Also order sucralfate. If persistent symptoms however, will consult gastrointestina l. -Pain control with prn Dilaudid in the meantime. -For her hypertension, this is not well controlled at this time. Continue enalapril and hyd ralazine prn. She is on amlodipine and lisinopril. I will add Coreg and titrate accordingly. If needed, I will add a diuretic versus clonidine. -For her diabetes, current A1c is 6.5. Continue Humalog sliding scale. -For her nausea, vomiting and abdominal pain, symptomatic treatment has been ordered. -She will continue to take Plavix for her coronary artery disease. Again based on presentin g symptoms and findings so far, I suspect gastrointestinal source of her pain. -For her dehydration, I will have to lower the IV rate down to 75 cc an hour due to uncontr olled hypertension. Her renal function is normal. -Her leukocytosis is actually a chronic finding. I suspect there is underlying hematologic disorder. This can further be worked up as an outpatient. 03/06/2016 -epigastric pain persist. Based on exam and history, I doubt cardia cause. I will consult GI. She might need repeat EGD. -continue PPI BID and sucralfate. -continue clear liquids. If no procedure, will advance diet slowly. -BP still spiking high but trending down. Pain might be contributing. She was started on coreg. Goal systolic for now 150-160. 120 systolic might be a rapid drop. -continue humalog SSi for her DM. -her high WBC could be reactive. She is not on any meds to cause this. Also no signs of i nfection and no fever. Noted polycythemia which could be related to her smoking history. I will consult hematology. Check EPO level and peripheral smear. -replace K and phos and monitor levels. -TSH is low but T4 is normal. Outpatient follow up of her thyroid. -continue all other essential regimen. DVT prophylaxis: in place GI prophylaxis: in place Disposition: Inpatient Code Status: Full Code Dictation and university registrar or software, [employer], used which may contain error for similar s ounding words even after review. Personal communication requested for any clarification. CLEMENTINE BROUSSARD MD 03/06/2016 8:21 AM onversion Transact ion, Provider Unknown - 03/06/2016 3:45 AM PSTFormatting of this note might be different fr om the original. Nurse Progress Note by Curt Ellis RN at 03/06/16344 Author: Curt Ellis RN Service: (none) Author Type: Registered Nurse Filed: 03/06/16345 Date of Service: 03/06/16344 Status: Signed Brim Pouncer Machine Operator: Curt L Caelb, RN (Registered Nurse) Pt BP in the 200's IV Hydralazine given will recheck again in 30 mins. Curt Ellis RN Clementine Sol MD - 03/05/2016 3:56 PM PST Progress Notes by Clementine Broussard MD at 03/05/16 1692 Author: Celmentine Broussard MD Service: Hospitalist Author Type: Physician Filed: 03/05/16 8097 Date of Service: 03/05/16 0333 Status: Signed Brim Pouncer Machine Operator: Clementine Broussard MD (Physician) [facility] Service: Hospitalist Progress Note Hospital Day: LOS: 0 days SUBJECTIVE Patient Summary: 60-year-old female smoker who is obese, history of coronary artery d isease is status post stenting about 10 years ago, history of hypertension, history of diabe derek type 2, recent admission on November 20, 2015 until November 24, 2015 for acute gastritis an d duodenitis who was supposed to follow up with her gastrointestinal does not was never done , was supposed to be taking PPI but she claims there were no refills and her prescriptions w neeraj presented with acute onset of 10/10 sharp pain over the epigastric area soon after having her Thanksgiving meal as initiated in nausea and vomiting. She described radiation to the c hest somewhat similar to her symptoms 10 years ago when she had the cardiac stent. Her elect rocardiogram showed normal sinus rhythm with right atrial enlargement with nonspecific ST to T wave changes. I did not appreciate any ST elevations. Her troponins have been negative 3. She had an unremarkable cardiac stress test in sep 04 2015. Her chest computed axial og graphy scan is unremarkable. Her abdominal and pelvic computed axial tomography scan likewis e unremarkable. Events Overnight: Seen and examined patient. She continues to have epigastric pain. A fter further questioning, it became apparent that the patient's symptoms is actually related to her gastrointestinal issues. She continues to smoke half a pack per day. I reviewed her laboratories and imaging findings. These were all discussed in details. Scheduled Medications amLODIPine 10 mg Oral Daily atorvastatin 20 mg Oral Nightly carvedilol 6.25 mg Oral BID WC clopidogrel 75 mg Oral Daily enoxaparin 40 mg Subcutaneous Q24H influenza vaccine quadrivalent 0.5 mL Intramuscular Once Immunization insulin lispro (human) 0-14 Units Subcutaneous TID AC insulin lispro (human) 0-7 Units Subcutaneous Nightly lisinopril 40 mg Oral Daily nicotine 1 patch Transdermal Daily pantoprazole 40 mg Intravenous BID sertraline 50 mg Oral Daily sucralfate 1 g Oral 4x Daily AC & HS Continuous Infusions dextrose sodium chloride 75 mL/hr at 03/05/16 1536 PRN Medications acetaminophen OR acetaminophen, aluminum-magnesium hydroxide-simethicone, dextrose, dex trose, dextrose, enalaprilat, glucagon, glucagon, hydrALAZINE, HYDROcodone-acetaminophen, hy drocortisone, HYDROmorphone OR HYDROmorphone, LORazepam OR LORazepam, nitroGLYCERIN, ondansetron OR ondansetron, polyethylene glycol, promethazine, zolpidem OBJECTIVE Vital Signs: Filed Vitals: 03/05/16 1230 03/05/16 1245 03/05/16 1315 03/05/16 1516 BP: 186/86 194/88 156/71 173/74 Pulse: 96 97 101 98 Temp: 98.5 F (36.9 C) TempSrc: Oral Resp: 28 Height: Weight: SpO2: 94% Physical Exam General appearance: alert, appears stated age and cooperative. Fatigued looking, obese, mil d distress due to pain. Head: Normocephalic, without obvious abnormality, atraumatic Neck: no adenopathy, no carotid bruit, no JVD, supple, symmetrical, trachea midline and thy roid not enlarged, symmetric, no tenderness/mass/nodules Lungs: clear to auscultation bilaterally Heart: regular rate and rhythm, S1, S2 normal, no murmur, click, rub or gallop Abdomen: soft, positive tenderness over the epigastric area; bowel sounds normal; no masses , no organomegaly Musculoskeletal: There is no redness, warmth, or swelling of the joints. Full range of mo tion noted. Motor strength is 5 out of 5 all extremities bilaterally. Tone is normal. Extremities: extremities normal, atraumatic, no cyanosis or edema Pulses: 2+ and symmetric Skin: Skin color, texture, turgor normal. No rashes or lesions Lymph nodes: Cervical, supraclavicular, and axillary nodes normal. DATA, personally reviewed Recent Labs Lab 03/05/16 0454 03/04/162130 WBC 18.47* 14.18* HGB 16.9* 17.6* HCT 50.2* 51.1* PLT 327 359 NEUTOPHILPCT -- 87.39 MONOPCT -- 2.16 Recent Labs Lab 03/05/16 0454 03/04/16 2131 NA 138 136 K 3.7 3.9 CL 103 101 CO2 23 24 BUN 12 12 CREATININE 0.8 0.97 PROT 8.1 8.8* BILITOT 0.4 0.3 ALT 20 20 AST 13 14 Phosphorus: Lab Results Component Value Date PHOS 3.3 03/05/2016 Recent Labs Lab 03/05/16 0454 MG 2.1 Recent Labs Lab 03/04/162130 APTT 30 INR 1.0 Recent Labs Lab 03/05/16 0454 TSH 0.38* Recent Labs Lab 03/05/16 1148 03/05/16 0543 03/05/16 0018 03/04/161 CKTOTAL 42 44 -- 65 TROPONINI <0.020 <0.020 <0.020 -- CKMBINDEX 4.5 3.0 -- UNABLE TO CALCULATE Component Latest Ref Rng 03/05/2016 3:13 AM COLOR UA STRAW CLARITY CLEAR Specific [place], UA 1.002 - 1.030 1.033 (H) Leukocyes, UA NEGATIVE NEGATIVE Nitrite, UA NEGATIVE NEGATIVE UROBILINOGEN <1.1 mg/dL NORMAL PROTEIN NEGATIVE mg/dL 100 (A) PH,URINE 5.0 - 8.0 6.0 BLOOD NEGATIVE SMALL (A) KETONES NEGATIVE mg/dL TRACE (A) BILIRUBIN NEGATIVE NEGATIVE GLUCOSE NEGATIVE mg/dL >500 (A) WBC 0 - 5 /hpf 0-2 Blood, UA 0 - 5 /hpf 6-10 BACTERIA NONE SEEN NONE SEEN Epithelial Cells 16-25 Component Latest Ref Rng 03/04/2016 9:31 PM LIPASE 73 - 393 U/L 171 Radiology, personally reviewed Xr Chest Pa And Lateral 03/04/2016 Normal 2-view chest radiography. [facility] Electronically signed by Kelvin Hopson MD on Mar 04 2016 9:59PM Referring Provider Line: [phone] ID: [id number] Ct Chest Non-contrast 03/05/[address] finding on noncontrast evaluation of the chest. The lungs are clear . [facility] Electronically signed by Nick Williamson MD on Mar 05 2016 2:47AM Referring Provider Line: [phone] ID: [id number] Ct Abdomen Pelvis With Contrast 03/05/2016 1. Diverticulosis, no diverticulitis or other acute inflammatory process. 2. No rmal appendix. 3. No bowel obstruction or fluid collections. 4. Stable subcapsular splenic p erfusion defect the etiology of which is uncertain. This may represent sequela of old infarc t or injury. [facility] Electronically signed by Sylvain Newman MD on Mar 05 2016 1:22AM Ref erring Provider Line: [phone] ID: [id number] PROBLEM LIST Principal Problem: Epigastric abdominal pain Active Problems: Essential hypertension, benign DM (diabetes mellitus) (HCC) Abdominal pain Nausea and vomiting CAD (coronary artery disease) Depression Smoking Gastritis and duodenitis Dehydration Chest pain, unspecified Obesity, unspecified Type 2 diabetes mellitus with hyperglycemia (HCC) Gastroesophageal reflux disease without esophagitis Leukocytosis ASSESSMENT & PLAN -60-year-old female with several cardiac risk factors presenting with epigastric pain radia ting to the chest. Her history and her recent workup is more suggestive of a gastrointestina l source of her pain. Her troponins have been negative. I reviewed the electrocardiogram and compare it with the on 1 which did not show any major changes. On exam, she is tender on th e epigastric area. -I ordered clear liquids for now. The patient could not tolerate general diet at this time because of her nausea and vomiting. -Her abdominal computed axial tomography scan and lipase are unremarkable. At this point in time, I do not think that she will need urgent endoscopy. I will start her back on PPI twic e a day. Also order sucralfate. If persistent symptoms however, will consult gastrointestina l. -Pain control with prn Dilaudid in the meantime. -For her hypertension, this is not well controlled at this time. Continue enalapril and hyd ralazine prn. She is on amlodipine and lisinopril. I will add Coreg and titrate accordingly. If needed, I will add a diuretic versus clonidine. -For her diabetes, current A1c is 6.5. Continue Humalog sliding scale. -For her nausea, vomiting and abdominal pain, symptomatic treatment has been ordered. -She will continue to take Plavix for her coronary artery disease. Again based on presentin g symptoms and findings so far, I suspect gastrointestinal source of her pain. -For her dehydration, I will have to lower the IV rate down to 75 cc an hour due to uncontr olled hypertension. Her renal function is normal. -Her leukocytosis is actually a chronic finding. I suspect there is underlying hematologic disorder. This can further be worked up as an outpatient. DVT prophylaxis: in place GI prophylaxis: in place Disposition: Inpatient Code Status: Full Code Dictation and university registrar or software, [employer], used which may contain error for similar s ounding words even after review. Personal communication requested for any clarification. CLEMENTINE BROUSSARD MD 03/05/2016 3:57 PM onversion Transact ion, Provider Unknown - 03/05/2016 3:38 PM PSTFormatting of this note might be different fr om the original. Nurse Progress Note by Gissell Rice RN at 03/05/16 8079 Author: Gissell Rice RN Service: (none) Author Type: Registered Nurse Filed: 03/05/16 1146 Date of Service: 03/05/161537 Status: Signed Brim Pouncer Machine Operator: Gissell Rice RN (Registered Nurse) Patient continues to have SBP 160-190 throughout shift after carvedilol given this am, PRN vasotec and hydralazine given, SBP continues to be elevated 170s. Dr. Broussard notified, will d ecrease IV fluids and increase carvedilol dose this evening. Okay with SBP 160-180s between PRN vasotec and hydralazine doses, does not want to increase dose at this time. Will continu e to monitor. GISSELL RICE RN onver glory Transaction, Provider Unknown - 03/05/2016 8:13 AM PST Case Management by RONI Alvarenga at 03/05/16812 Author: RONI Alvarenga Service: (none) Author Type: Rn Case Mgr Filed: 03/05/16813 Date of Service: 03/05/16812 Status: Signed Brim Pouncer Machine Operator: RONI Alvarenga (Rn Case Mgr) 03/05/16799 Discharge Planning Evaluation Admitting Diagnosis NSTEMI Readmission No Living Arrangements Spouse/significant other Support Systems Spouse/significant other Type of Residence Private residence Independent with ADL's Yes Independent with Mobility Yes Home Care Services No Mental Status Oriented Prior functional status indpt, home with spouse, 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 Anticipated Discharge Plan Post Acute Care Needs None at this time Resources Financial concerns No Transportation issues No Patient/Family concerns No Prescription Plan Yes Anticipated Disposition Facility Type Home Met with: pt and discussed discharge planning, Pt is a 60 y.o., female, admit for NSTEMI - pt lives home with spouse, is indpt with adls, iadls, no dme, 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 [employer], no needs anticipated for DCP at this time Patient's PCP is: Braydon Lowry Patient's insurance:[employer] Coverage concerns: no concerns Medication coverage/concerns: no concerns Community resources utilized / needed: none Assistance in transportation: none Identification of any specific education / training: TBD Barriers to Discharge / Alternative housing needed: none anticipated Anticipated DCP: home Gray Lyn onver glory Transaction, Provider Unknown - 03/05/2016 5:35 AM PST Pharmacy Note by Ximena Florez RPH at 03/05/16534 Author: Ximena Florez RPH Service: Pharmacy Author Type: Pharmacist Filed: 03/05/16534 Date of Service: 03/05/16534 Status: Signed Brim Pouncer Machine Operator: Ximena Florez RPH (Pharmacist) Clinical Pharmacy Note: Renal Monitoring Height: 165.1 cm Weight: 79 kg CREATININE: 0.97 (03/04/162130) Estimated creatinine clearance - 64.1 mL/min Pharmacy dosing for renal function per Dr. Fishman. Currently there are no medications needing to be adjusted. Pharmacy will continue to monito r for changes in medication orders and in renal function and adjust accordingly per protocol . Ximena Florez, PharmD 03/05/2016 5:35 AM docume nted in this encounter Plan of Treatment Not on filedocumented as of this encounter Procedures + +--------+ + + + | Procedure Name | Priori | Date/Time | Associated Diagnosis | Comments | | | ty | | | | + +--------+ + + + | POC GLUCOSE | Routin | 03/08/2016 | | Results for this | | | e | 11:04 AM | | procedure are in the | | | | PST | | results section. | + +--------+ + + + | ALDOSTERONE/RENIN | Routin | 03/08/2016 | | Results for this | | RATIO | e | 8:04 AM | | procedure are in the | | | | PST | | results section. | + +--------+ + + + | METANEPHRINES, | Routin | 03/08/2016 | | Results for this | | FRACTIONATED, FREE, | e | 8:04 AM | | procedure are in the | | PLASMA | | PST | | results section. | + +--------+ + + + | POC GLUCOSE | Routin | 03/08/2016 | | Results for this | | | e | 5:20 AM | | procedure are in the | | | | PST | | results section. | + +--------+ + + + | EXTERNAL LAB: CBC | Routin | 03/08/2016 | | Results for this | | | e | 4:20 AM | | procedure are in the | | | | PST | | results section. | + +--------+ + + + | PHOSPHORUS | Routin | 03/08/2016 | | Results for this | | | e | 4:20 AM | | procedure are in the | | | | PST | | results section. | + +--------+ + + + | LIPASE | Routin | 03/08/2016 | | Results for this | | | e | 4:20 AM | | procedure are in the | | | | PST | | results section. | + +--------+ + + + | COMPREHENSIVE | Routin | 03/08/2016 | | Results for this | | METABOLIC PANEL | e | 4:20 AM | | procedure are in the | | | | PST | | results section. | + +--------+ + + + | POC GLUCOSE | Routin | 03/07/2016 | | Results for this | | | e | 9:17 PM | | procedure are in the | | | | PST | | results section. | + +--------+ + + + | URINALYSIS, REFLEX | Routin | 03/07/2016 | | Results for this | | MICROSCOPIC AND/OR | e | 3:53 PM | | procedure are in the | | CULTURE | | PST | | results section. | + +--------+ + + + | POC GLUCOSE | Routin | 03/07/2016 | | Results for this | | | e | 3:51 PM | | procedure are in the | | | | PST | | results section. | + +--------+ + + + | POC GLUCOSE | Routin | 03/07/2016 | | Results for this | | | e | 11:02 AM | | procedure are in the | | | | PST | | results section. | + +--------+ + + + | POC GLUCOSE | Routin | 03/07/2016 | | Results for this | | | e | 5:29 AM | | procedure are in the | | | | PST | | results section. | + +--------+ + + + | EXTERNAL LAB: CBC | Routin | 03/07/2016 | | Results for this | | | e | 4:50 AM | | procedure are in the | | | | PST | | results section. | + +--------+ + + + | PHOSPHORUS | Routin | 03/07/2016 | | Results for this | | | e | 4:50 AM | | procedure are in the | | | | PST | | results section. | + +--------+ + + + | COMPREHENSIVE | Routin | 03/07/2016 | | Results for this | | METABOLIC PANEL | e | 4:50 AM | | procedure are in the | | | | PST | | results section. | + +--------+ + + + | POC GLUCOSE | Routin | 03/06/2016 | | Results for this | | | e | 9:12 PM | | procedure are in the | | | | PST | | results section. | + +--------+ + + + | POTASSIUM | Routin | 03/06/2016 | | Results for this | | | e | 5:31 PM | | procedure are in the | | | | PST | | results section. | + +--------+ + + + | POC GLUCOSE | Routin | 03/06/2016 | | Results for this | | | e | 4:09 PM | | procedure are in the | | | | PST | | results section. | + +--------+ + + + | POC GLUCOSE | Routin | 03/06/2016 | | Results for this | | | e | 11:03 AM | | procedure are in the | | | | PST | | results section. | + +--------+ + + + | SLIDE SCAN | Routin | 03/06/2016 | | Results for this | | | e | 8:07 AM | | procedure are in the | | | | PST | | results section. | + +--------+ + + + | ERYTHROPOIETIN | Routin | 03/06/2016 | | Results for this | | | e | 8:07 AM | | procedure are in the | | | | PST | | results section. | + +--------+ + + + | POC GLUCOSE | Routin | 03/06/2016 | | Results for this | | | e | 5:19 AM | | procedure are in the | | | | PST | | results section. | + +--------+ + + + | EXTERNAL LAB: CBC | Routin | 03/06/2016 | | Results for this | | | e | 5:05 AM | | procedure are in the | | | | PST | | results section. | + +--------+ + + + | T4, FREE | Routin | 03/06/2016 | | Results for this | | | e | 5:05 AM | | procedure are in the | | | | PST | | results section. | + +--------+ + + + | PHOSPHORUS | Routin | 03/06/2016 | | Results for this | | | e | 5:05 AM | | procedure are in the | | | | PST | | results section. | + +--------+ + + + | MAGNESIUM | Routin | 03/06/2016 | | Results for this | | | e | 5:05 AM | | procedure are in the | | | | PST | | results section. | + +--------+ + + + | COMPREHENSIVE | Routin | 03/06/2016 | | Results for this | | METABOLIC PANEL | e | 5:05 AM | | procedure are in the | | | | PST | | results section. | + +--------+ + + + | POC GLUCOSE | Routin | 03/05/2016 | | Results for this | | | e | 9:07 PM | | procedure are in the | | | | PST | | results section. | + +--------+ + + + | TROPONIN I | Routin | 03/05/2016 | | Results for this | | | e | 5:50 PM | | procedure are in the | | | | PST | | results section. | + +--------+ + + + | CK-MB | Routin | 03/05/2016 | | Results for this | | | e | 5:50 PM | | procedure are in the | | | | PST | | results section. | + +--------+ + + + | CK TOTAL | Routin | 03/05/2016 | | Results for this | | | e | 5:50 PM | | procedure are in the | | | | PST | | results section. | + +--------+ + + + | POC GLUCOSE | Routin | 03/05/2016 | | Results for this | | | e | 3:56 PM | | procedure are in the | | | | PST | | results section. | + +--------+ + + + | ECHO COMPLETE | Routin | 03/05/2016 | | Results for this | | | e | 12:15 PM | | procedure are in the | | | | PST | | results section. | + +--------+ + + + | TROPONIN I | Routin | 03/05/2016 | | Results for this | | | e | 11:48 AM | | procedure are in the | | | | PST | | results section. | + +--------+ + + + | CK-MB | Routin | 03/05/2016 | | Results for this | | | e | 11:48 AM | | procedure are in the | | | | PST | | results section. | + +--------+ + + + | CK TOTAL | Routin | 03/05/2016 | | Results for this | | | e | 11:48 AM | | procedure are in the | | | | PST | | results section. | + +--------+ + + + | POC GLUCOSE | Routin | 03/05/2016 | | Results for this | | | e | 11:30 AM | | procedure are in the | | | | PST | | results section. | + +--------+ + + + | CULTURE, BLOOD, 2ND | Timed | 03/05/2016 | | Results for this | | SPECIMEN (NON-ORD) | | 10:31 AM | | procedure are in the | | | | PST | | results section. | + +--------+ + + + | CULTURE, BLOOD | Timed | 03/05/2016 | | Results for this | | | | 10:22 AM | | procedure are in the | | | | PST | | results section. | + +--------+ + + + | TROPONIN I | Routin | 03/05/2016 | | Results for this | | | e | 5:43 AM | | procedure are in the | | | | PST | | results section. | + +--------+ + + + | CK-MB | Routin | 03/05/2016 | | Results for this | | | e | 5:43 AM | | procedure are in the | | | | PST | | results section. | + +--------+ + + + | CK TOTAL | Routin | 03/05/2016 | | Results for this | | | e | 5:43 AM | | procedure are in the | | | | PST | | results section. | + +--------+ + + + | POC GLUCOSE | Routin | 03/05/2016 | | Results for this | | | e | 5:17 AM | | procedure are in the | | | | PST | | results section. | + +--------+ + + + | EXTERNAL LAB: CBC | Routin | 03/05/2016 | | Results for this | | | e | 4:54 AM | | procedure are in the | | | | PST | | results section. | + +--------+ + + + | LIPID PANEL | Routin | 03/05/2016 | | Results for this | | | e | 4:54 AM | | procedure are in the | | | | PST | | results section. | + +--------+ + + + | TSH | Routin | 03/05/2016 | | Results for this | | | e | 4:54 AM | | procedure are in the | | | | PST | | results section. | + +--------+ + + + | PHOSPHORUS | Routin | 03/05/2016 | | Results for this | | | e | 4:54 AM | | procedure are in the | | | | PST | | results section. | + +--------+ + + + | MAGNESIUM | Routin | 03/05/2016 | | Results for this | | | e | 4:54 AM | | procedure are in the | | | | PST | | results section. | + +--------+ + + + | HEMOGLOBIN A1C | Routin | 03/05/2016 | | Results for this | | | e | 4:54 AM | | procedure are in the | | | | PST | | results section. | + +--------+ + + + | COMPREHENSIVE | Routin | 03/05/2016 | | Results for this | | METABOLIC PANEL | e | 4:54 AM | | procedure are in the | | | | PST | | results section. | + +--------+ + + + | D-DIMER | Routin | 03/05/2016 | | Results for this | | | e | 4:51 AM | | procedure are in the | | | | PST | | results section. | + +--------+ + + + | URINALYSIS, REFLEX | Routin | 03/05/2016 | | Results for this | | MICROSCOPIC AND/OR | e | 3:13 AM | | procedure are in the | | CULTURE | | PST | | results section. | + +--------+ + + + | CT CHEST WO CONTRAST | Routin | 03/05/2016 | | Results for this | | | e | 2:26 AM | | procedure are in the | | | | PST | | results section. | + +--------+ + + + | CT ABDOMEN PELVIS W | Routin | 03/05/2016 | | Results for this | | CONTRAST | e | 12:54 AM | | procedure are in the | | | | PST | | results section. | + +--------+ + + + | TROPONIN I | Routin | 03/05/2016 | | Results for this | | | e | 12:18 AM | | procedure are in the | | | | PST | | results section. | + +--------+ + + + | XR CHEST 2 VIEWS | Routin | 03/04/2016 | | Results for this | | | e | 9:41 PM | | procedure are in the | | | | PST | | results section. | + +--------+ + + + | HISTORICAL LAB PANEL | Routin | 03/04/2016 | | Results for this | | RESULT | e | 9:31 PM | | procedure are in the | | | | PST | | results section. | + +--------+ + + + | LIPASE | Routin | 03/04/2016 | | Results for this | | | e | 9:31 PM | | procedure are in the | | | | PST | | results section. | + +--------+ + + + | ECG 12 LEAD | Routin | 03/04/2016 | | Results for this | | | e | 9:29 PM | | procedure are in the | | | | PST | | results section. | + +--------+ + + + documented in this encounter Results POC Glucose (03/08/2016 11:04 AM PST) + + + + + + | Component | Value | Ref Range | Performed | Pathologist | | | | | At | Signature | + + + + + + | Glucose, | 224 (H)Comment: Testing | 65 - 99 mg/dL | EXTERNAL | | | Fingerstick | performed at [facility];[address] | | LAB | | | | [address];[place] | | | | | | [address] | | | | + + + + + + + + | Specimen | + + | | + + + +---------+ + + | Performing | Address | City/State/Zipcode | Phone Number | | Organization | | | | + +---------+ + + | EXTERNAL LAB | | | | + +---------+ + + Aldosterone/Renin Ratio (03/08/2016 8:04 AM PST) + + + + + + | Component | Value | Ref Range | Performed | Pathologist | | | | | At | Signature | + + + + + + | Aldosterone | 3.6Comment: UPRIGHT: | ng/dL | EXTERNAL | | | , Urine | <39.2 NG/DL SUPINE: | | LAB | | | | <23.2 NG/DLNORMAL SERUM | | | | | | ALDOSTERONE LEVELS ARE | | | | | | DEPENDENT ON MANY | | | | | | FACTORS: POSTURE, SODIUM | | | | | | INTAKE, AND TIME OF | | | | | | DAY. EVALUATION OF SERUM | | | | | | ALDOSTERONESHOULD BE | | | | | | INTERPRETED UNDER | | | | | | STRICTLY CONTROLLED | | | | | | CONDITIONS.Testing | | | | | | performed at [facility], [address] | | | | | | [facility] | | | | | | [place] [address] | | | | + + + + + + | Renin, | <2.1Comment: UPRIGHT < | pg/mL | EXTERNAL | | | Direct | OR = 40 YEARS OLD 4.2 | | LAB | | | | TO 52.2 PG/MLUPRIGHT >40 | | | | | | YEARS OLD | | | | | | 3.6 TO 81.6 | | | | | | PG/MLSUPINE < OR = 40 | | | | | | YEARS OLD 3.2 TO 33.2 | | | | | | PG/MLSUPINE >40 YEARS | | | | | | OLD 2.5 TO | | | | | | 45.1 PG/MLTesting | | | | | | performed at [facility], [address] | | | | | | [address] | | | | | | [place] [address] | | | | + + + + + + | ALDOSTERONE | >1.7Comment: Reference | 0 - 25 ratio | EXTERNAL | | | /RENIN | range: 0.1 to 3.7 AN | | LAB | | | RATIO | ALDOSTERONE/DIRECT RENIN | | | | | | RATIO OF GREATER THAN | | | | | | 3.7 IS SUGGESTIVE | | | | | | OFHYPERALDOSTERONISM.Derek | | | | | | ting performed at [facility], | | | | | | [address] | | | | | | [place] [address] | | | | + + + + + + + + | Specimen | + + | | + + + +---------+ + + | Performing | Address | City/State/Zipcode | Phone Number | | Organization | | | | + +---------+ + + | EXTERNAL LAB | | | | + +---------+ + + Metanephrines, Fractionated, Free, Plasma (03/08/2016 8:04 AM PST) + + + + + + | Component | Value | Ref Range | Performed | Pathologist | | | | | At | Signature | + + + + + + | Metanephrin | <0.25Comment: Testing | 0.0 - 0.49 | EXTERNAL | | | e, Free | performed at [facility], [address] | nmol/L | LAB | | | | [address] [place] | | | | | | [place] [address] | | | | + + + + + + | Normetaneph | 1.01 (H)Comment: | 0.0 - 0.89 | EXTERNAL | | | rine, Free | Reference range: 0.00 to | nmol/L | LAB | | | | 0.89Testing performed | | | | | | at [facility], [address] | | | | | | [place] | | | | | | [address] | | | | + + + + + + | Total,Free | <1.26Comment: THIS TEST | 0.0 - 1.38 | EXTERNAL | | | Metanephrin | IS USEFUL IN THE | nmol/L | LAB | | | e,Normetane | DETECTION OF | | | | | phrine | PHEOCHROMOCYTOMA. | | | | | | MOSTPATIENTS WHO | | | | | | PRESENT WITH THIS | | | | | | CONDITION HAVE A PLASMA | | | | | | METANEPHRINEAND/OR | | | | | | NORMETANEPHRINE | | | | | | CONCENTRATION GREATER | | | | | | THAN 10 TIMES THE | | | | | | UPPERLIMIT OF | | | | | | NORMAL.PATIENTS WITH | | | | | | MODERATE ELEVATIONS OF | | | | | | METANEPHRINE | | | | | | AND/ORNORMETANEPHRINE | | | | | | (UP TO 4 TIMES THE UPPER | | | | | | LIMIT OF THE NORMAL | | | | | | RANGE)MAY BE DUE TO | | | | | | MEDICATION OR STRESS. IF | | | | | | CLINICAL SUSPICION | | | | | | REMAINS,REPEAT PLASMA | | | | | | TESTING OR TEST FOR | | | | | | METANEPHRINES IN A 24 | | | | | | HOUR | | | | | | URINECOLLECTION.Testing | | | | | | performed at [facility], [address] | | | | | | [facility] | | | | | | [place] [address] | | | | + + + + + + + + | Specimen | + + | | + + + +---------+ + + | Performing | Address | City/State/Zipcode | Phone Number | | Organization | | | | + +---------+ + + | EXTERNAL LAB | | | | + +---------+ + + POC Glucose (03/08/2016 5:20 AM PST) + + + + + + | Component | Value | Ref Range | Performed | Pathologist | | | | | At | Signature | + + + + + + | Glucose, | 159 (H)Comment: Testing | 65 - 99 mg/dL | EXTERNAL | | | Fingerstick | performed at [facility] | | LAB | | | | [address];[place], [place] | | | | | | [address] | | | | + + + + + + + + | Specimen | + + | | + + + +---------+ + + | Performing | Address | City/State/Zipcode | Phone Number | | Organization | | | | + +---------+ + + | EXTERNAL LAB | | | | + +---------+ + + External Lab: CBC (03/08/2016 4:20 AM PST) + + + + + + | Component | Value | Ref Range | Performed | Pathologist | | | | | At | Signature | + + + + + + | WBC | 11.07 (H)Comment: | 3.80 - 11.00 | EXTERNAL | | | | Testing performed at | K/uL | LAB | | | | [facility], [address] | | | | | | [place] | | | | | | [address] | | | | + + + + + + | RED CELL | 5.11 (H)Comment: Testing | 3.70 - 5.10 | EXTERNAL | | | COUNT | performed at [facility], [address] | [address] | LAB | | | | [address], | | | | | | [place] [address] | | | | + + + + + + | Hgb | 15.8 (H)Comment: Testing | 11.3 - 15.5 | EXTERNAL | | | | performed at [facility], [address] | g/dL | LAB | | | | [address], | | | | | | [place] [address] | | | | + + + + + + | Hematocrit, | 46.6 (H)Comment: Testing | 34.0 - 46.0 % | EXTERNAL | | | POC | performed at [facility], [address] | | LAB | | | | [address], | | | | | | [place] [address] | | | | + + + + + + | MCV | 91.3Comment: Testing | 80.0 - 100.0 fl | EXTERNAL | | | | performed at [facility], [address] | | LAB | | | | [address], | | | | | | [place] [address] | | | | + + + + + + | MCH | 30.9Comment: Testing | 27.0 - 34.0 pg | EXTERNAL | | | | performed at [facility], [address] | | LAB | | | | [address], | | | | | | [place] [address] | | | | + + + + + + | MCHC | 33.9Comment: Testing | 32.0 - 35.5 | EXTERNAL | | | | performed at [facility], [address] | g/dL | LAB | | | | [address], | | | | | | [place] [address] | | | | + + + + + + | RDW-CV | 41.1Comment: Testing | 37 - 53 fl | EXTERNAL | | | | performed at [facility], [address] | | LAB | | | | [address], | | | | | | [place] [address] | | | | + + + + + + | Platelet | 319Comment: Testing | 150 - 400 K/uL | EXTERNAL | | | Count | performed at [facility], [address] | | LAB | | | Plasma | [address] [place], | | | | | | [place] [address] | | | | + + + + + + | MPV | 8.3Comment: Testing | fl | EXTERNAL | | | | performed at [facility], [address] | | LAB | | | | [address], | | | | | | [place] [address] | | | | + + + + + + | Differentia | AUTOMATEDComment: | | EXTERNAL | | | l Type | Testing performed at | | LAB | | | | [facility], [address] | | | | | | [place] | | | | | | [address] | | | | + + + + + + | % Segmented | 60.06Comment: Testing | % | EXTERNAL | | | | performed at [facility], [address] | | LAB | | | Neutrophils | [address], | | | | | | [place] [address] | | | | + + + + + + | % | 28.48Comment: Testing | % | EXTERNAL | | | Lymphocytes | performed at [facility], [address] | | LAB | | | | [address], | | | | | | [place] [address] | | | | + + + + + + | % Monocytes | 10.95Comment: Testing | % | EXTERNAL | | | | performed at [facility], [address] | | LAB | | | | [address], | | | | | | [place] [address] | | | | + + + + + + | % | 0.34Comment: Testing | % | EXTERNAL | | | Eosinophils | performed at [facility], [address] | | LAB | | | | [address], | | | | | | [place] [address] | | | | + + + + + + | % Basophils | 0.17Comment: Testing | % | EXTERNAL | | | | performed at [facility], [address] | | LAB | | | | [address], | | | | | | [place] [address] | | | | + + + + + + | Absolute | 6.65Comment: Testing | 1.90 - 7.40 | EXTERNAL | | | Segmented | performed at [facility], [address] | K/uL | LAB | | | Neutrophils | [address], | | | | | | [place] [address] | | | | + + + + + + | Absolute | 3.15Comment: Testing | 1.00 - 3.90 | EXTERNAL | | | Lymphocytes | performed at [facility], [address] | K/uL | LAB | | | | [address], | | | | | | [place] [address] | | | | + + + + + + | Absolute | 1.21 (H)Comment: Testing | 0.00 - 0.80 | EXTERNAL | | | Monocytes | performed at [facility], [address] | K/[address] | LAB | | | | [address] [place], | | | | | | [place] [address] | | | | + + + + + + | Absolute | 0.04Comment: Testing | 0.00 - 0.50 | EXTERNAL | | | Eosinophils | performed at [facility], [address] | K/uL | LAB | | | | [address], | | | | | | [place] [address] | | | | + + + + + + | Absolute | 0.02Comment: Testing | 0.00 - 0.10 | EXTERNAL | | | Basophils | performed at [facility], [address] | K/uL | LAB | | | | [address], | | | | | | [place] [address] | | | | + + + + + + + + | Specimen | + + | Blood specimen | | (specimen) | + + + +---------+ + + | Performing | Address | City/State/Zipcode | Phone Number | | Organization | | | | + +---------+ + + | EXTERNAL LAB | | | | + +---------+ + + Phosphorus (03/08/2016 4:20 AM PST) + + + + + + | Component | Value | Ref Range | Performed | Pathologist | | | | | At | Signature | + + + + + + | PHOSPHORUS | 2.8Comment: Testing | 2.3 - 4.8 mg/dL | EXTERNAL | | | | performed at [facility], [address] | | LAB | | | | [address] [place], | | | | | | [place] [address] | | | | + + + + + + + + | Specimen | + + | Blood specimen | | (specimen) | + + + +---------+ + + | Performing | Address | City/State/Zipcode | Phone Number | | Organization | | | | + +---------+ + + | EXTERNAL LAB | | | | + +---------+ + + Lipase (03/08/2016 4:20 AM PST) + + + + + + | Component | Value | Ref Range | Performed | Pathologist | | | | | At | Signature | + + + + + + | Lipase | 328Comment: Testing | 73 - 393 U/L | EXTERNAL | | | | performed at [facility];[address] | | LAB | | | | [place] | | | | | | [address] | | | | + + + [...] + +---------+ + + Comprehensive Metabolic Panel (03/08/2016 4:20 AM PST) + + + + + + | Component | Value | Ref Range | Performed | Pathologist | | | | | At | Signature | + + + + + + | Na | 139Comment: Testing | 135 - 145 | EXTERNAL | | | | performed at [facility], [address] | mmol/L | LAB | | | | [address] [place], | | | | | | [place] [address] | | | | + + + + + + | K | 3.2 (L)Comment: Testing | 3.5 - 4.9 | EXTERNAL | | | | performed at [facility], [address] | mmol/L | LAB | | | | [address], | | | | | | [place] [address] | | | | + + + + + + | Cl | 102Comment: Testing | 99 - 109 mmol/L | EXTERNAL | | | | performed at [facility], [address] | | LAB | | | | [address], | | | | | | [place] [address] | | | | + + + + + + | CO2 | 28Comment: Testing | 23 - 32 mmol/L | EXTERNAL | | | | performed at [facility], [address] | | LAB | | | | [address], | | | | | | [place] [address] | | | | + + + + + + | Anion Gap | 12Comment: Testing | 5 - 20 mmol/L | EXTERNAL | | | | performed at [facility], [address] | | LAB | | | | [address], | | | | | | [place] [address] | | | | + + + + + + | Glucose, | 138 (H)Comment: Testing | 65 - 99 mg/dL | EXTERNAL | | | Fasting | performed at [facility], [address] | | LAB | | | | [address], | | | | | | [place] [address] | | | | + + + + + + | BUN | 13Comment: Testing | 8 - 25 mg/dL | EXTERNAL | | | | performed at [facility], [address] | | LAB | | | | [address], | | | | | | [place] [address] | | | | + + + + + + | Creatinine | 0.7Comment: Testing | 0.50 - 1.00 | EXTERNAL | | | | performed at [facility], [address] | mg/dL | LAB | | | | [address], | | | | | | [place] [address] | | | | + + + + + + | BUN/Creatin | 19Comment: Testing | | EXTERNAL | | | ine Ratio | performed at [facility], [address] | | LAB | | | | [address], | | | | | | [place] [address] | | | | + + + + + + | Calcium | 9.2Comment: Testing | 8.5 - 10.5 | EXTERNAL | | | | performed at [facility], [address] | mg/dL | LAB | | | | [address], | | | | | | [place] [address] | | | | + + + + + + | Protein, | 6.2 (L)Comment: Testing | 6.3 - 8.2 g/dL | EXTERNAL | | | Total | performed at [facility], [address] | | LAB | | | [address], | | | | | | [place] [address] | | | | + + + + + + | Albumin | 3.2 (L)Comment: Testing | 3.3 - 4.8 g/dL | EXTERNAL | | | | performed at [facility], [address] | | LAB | | | [address], | | | | | | [place] [address] | | | | + + + + + + | Globulin | 3.0Comment: Testing | 1.3 - 4.9 g/dL | EXTERNAL | | | | performed at [facility], [address] | | LAB | | | | [address], | | | | | | [place] [address] | | | | + + + + + + | A/G Ratio | 1.1Comment: Testing | 1.0 - 2.4 | EXTERNAL | | | | performed at [facility], [address] | | LAB | | | [address], | | | | | | [place] [address] | | | | + + + + + + | Bilirubin | 0.6Comment: Testing | 0.1 - 1.5 mg/dL | EXTERNAL | | | Total | performed at [facility], [address] | | LAB | | | | [address], | | | | | | [place] [address] | | | | + + + + + + | ALP, | 68Comment: Testing | 35 - 115 U/L | EXTERNAL | | | External | performed at [facility], [address] | | LAB | | | | [address], | | | | | | [place] [address] | | | | + + + + + + | AST | 13Comment: Testing | 10 - 45 U/L | EXTERNAL | | | | performed at [facility], [address] | | LAB | | | | [address], | | | | | | [place] [address] | | | | + + + + + + | ALT | 16Comment: Testing | 10 - 65 U/L | EXTERNAL | | | | performed at [facility], [address] | | LAB | | | | [address], | | | | | | [place] [address] | | | | + + + [...] | | | | | | at [facility], [address] | | | | | | [address], | | | | | | [place] [address] | | | | + + + + + + + + | Specimen | + + | Blood specimen | | (specimen) | + + + +---------+ + + | Performing | Address | City/State/Zipcode | Phone Number | | Organization | | | | + +---------+ + + | EXTERNAL LAB | | | | + +---------+ + + POC Glucose (03/07/2016 9:17 PM PST) + + + + + + | Component | Value | Ref Range | Performed | Pathologist | | | | | At | Signature | + + + + + + | Glucose, | 190 (H)Comment: Testing | 65 - 99 mg/dL | EXTERNAL | | | Fingerstick | performed at [facility];[address] | | LAB | | | | [address];[place], [place] | | | | | | [address] | | | | + + + + + + + + | Specimen | + + | | + + + +---------+ + + | Performing | Address | City/State/Zipcode | Phone Number | | Organization | | | | + +---------+ + + | EXTERNAL LAB | | | | + +---------+ + + Urinalysis, Reflex Microscopic and/or Culture (03/07/2016 3:53 PM PST) + + + + + + | Component | Value | Ref Range | Performed | Pathologist | | | | | At | Signature | + + + + + + | Color | YELLOWComment: Testing | | EXTERNAL | | | | performed at [facility] | | LAB | | | | [place] | | | | | | [address] | | | | + + + + + + | Clarity | CLEARComment: Testing | | EXTERNAL | | | | performed at [facility];[address] | | LAB | | | | [address];[place] | | | | | | [address] | | | | + + + + + + | Specific | 1.010Comment: Testing | 1.002 - 1.030 | EXTERNAL | | | [place] | performed at [facility];[address] | | LAB | | | | [address];[place] | | | | | | [address] | | | | + + + + + + | Leukocyte | NEGATIVEComment: Testing | | EXTERNAL | | | Esterase, | performed at [facility];[address] | | LAB | | | Urine | [address];[place] | | | | | | [address] | | | | + + + + + + | Nitrite, | NEGATIVEComment: Testing | | EXTERNAL | | | Urine | performed at [facility];[address] | | LAB | | | | [address];[place] | | | | | | [address] | | | | + + + + + + | Urobilinoge | NORMALComment: Testing | mg/dL | EXTERNAL | | | n, Urine | performed at [facility];[address] | | LAB | | | | [address] [place] | | | | | | [address] | | | | + + + + + + | Protein, | NEGATIVEComment: Testing | mg/dL | EXTERNAL | | | Urine | performed at [facility];[address] | | LAB | | | | [address];[place] | | | | | | [address] | | | | + + + + + + | pH, Urine | 6.0Comment: Testing | 5.0 - 8.0 | EXTERNAL | | | | performed at [facility];[address] | | LAB | | | | [address];[place] | | | | | | [address] | | | | + + + + + + | Blood, | SMALL (A)Comment: | | EXTERNAL | | | Urine | Testing performed at | | LAB | | | | [facility];[address];[place] [address] | | | | + + + + + + | Ketones | NEGATIVEComment: Testing | mg/dL | EXTERNAL | | | | performed at [facility];[address] | | LAB | | | | [address];[place] | | | | | | [address] | | | | + + + + + + | Bilirubin, | NEGATIVEComment: Testing | | EXTERNAL | | | Urine | performed at [facility];[address] | | LAB | | | | [address];[place] | | | | | | [address] | | | | + + + + + + | Glucose, | 50 (A)Comment: Testing | mg/dL | EXTERNAL | | | Urine | performed at [facility];[address] | | LAB | | | | [address];[place] | | | | | | [address] | | | | + + + + + + | WBC, UA | 0-2Comment: Testing | 0 - 5 /hpf | EXTERNAL | | | | performed at [facility];[address] | | LAB | | | | [address];[place] | | | | | | [address] | | | | + + + + + + | RBC, UA | 3-5Comment: Testing | 0 - 5 /hpf | EXTERNAL | | | | performed at [facility];[address] | | LAB | | | | [address];[place] | | | | | | [address] | | | | + + + + + + | Bacteria, | 1+ (A)Comment: Testing | | EXTERNAL | | | UA | performed at [facility];[address] | | LAB | | | | [address];[place] | | | | | | [address] | | | | + + + + + + | Epithelial | 15Comment: Testing | /lpf | EXTERNAL | | | Cells | performed at [facility];[address] | | LAB | | | | [address];[place], [place] | | | | | | [address] | | | | + + + + + + + + | Specimen | + + | | + + + +---------+ + + | Performing | Address | City/State/Zipcode | Phone Number | | Organization | | | | + +---------+ + + | EXTERNAL LAB | | | | + +---------+ + + POC Glucose (03/07/2016 3:51 PM PST) + + + + + + | Component | Value | Ref Range | Performed | Pathologist | | | | | At | Signature | + + + + + + | Glucose, | 172 (H)Comment: Testing | 65 - 99 mg/dL | EXTERNAL | | | Fingerstick | performed at [facility];[address] | | LAB | | | | [address];[place], [place] | | | | | | [address] | | | | + + + + + + + + | Specimen | + + | | + + + +---------+ + + | Performing | Address | City/State/Zipcode | Phone Number | | Organization | | | | + +---------+ + + | EXTERNAL LAB | | | | + +---------+ + + POC Glucose (03/07/2016 11:02 AM PST) + + + + + + | Component | Value | Ref Range | Performed | Pathologist | | | | | At | Signature | + + + + + + | Glucose, | 200 (H)Comment: Testing | 65 - 99 mg/dL | EXTERNAL | | | Fingerstick | performed at [facility];[address] | | LAB | | | | [address];[place], [place] | | | | | | [address] | | | | + + + + + + + + | Specimen | + + | | + + + +---------+ + + | Performing | Address | City/State/Zipcode | Phone Number | | Organization | | | | + +---------+ + + | EXTERNAL LAB | | | | + +---------+ + + POC Glucose (03/07/2016 5:29 AM PST) + + + + + + | Component | Value | Ref Range | Performed | Pathologist | | | | | At | Signature | + + + + + + | Glucose, | 189 (H)Comment: Testing | 65 - 99 mg/dL | EXTERNAL | | | Fingerstick | performed at [facility];[address] | | LAB | | | | [address];[place] | | | | | | [address] | | | | + + + + + + + + | Specimen | + + | | + + + +---------+ + + | Performing | Address | City/State/Zipcode | Phone Number | | Organization | | | | + +---------+ + + | EXTERNAL LAB | | | | + +---------+ + + External Lab: CBC (03/07/2016 4:50 AM PST) + + + + + + | Component | Value | Ref Range | Performed | Pathologist | | | | | At | Signature | + + + + + + | WBC | 14.36 (H)Comment: | 3.80 - 11.00 | EXTERNAL | | | | Testing performed at | K/uL | LAB | | | | [facility], [address] [facility] | | | | | | [place] | | | | | | [address] | | | | + + + + + + | RED CELL | 5.55 (H)Comment: Testing | 3.70 - 5.10 | EXTERNAL | | | COUNT | performed at [facility], [address] | M/uL | LAB | | | | [address], | | | | | | [place] [address] | | | | + + + + + + | Hgb | 17.1 (H)Comment: Testing | 11.3 - 15.5 | EXTERNAL | | | | performed at [facility], [address] | g/dL | LAB | | | | [address], | | | | | | [place] [address] | | | | + + + + + + | Hematocrit, | 50.7 (H)Comment: Testing | 34.0 - 46.0 % | EXTERNAL | | | POC | performed at [facility], [address] | | LAB | | | | [address], | | | | | | [place] [address] | | | | + + + + + + | MCV | 91.3Comment: Testing | 80.0 - 100.0 fl | EXTERNAL | | | | performed at [facility], [address] | | LAB | | | | [address], | | | | | | [place] [address] | | | | + + + + + + | MCH | 30.7Comment: Testing | 27.0 - 34.0 pg | EXTERNAL | | | | performed at [facility], [address] | | LAB | | | | [address], | | | | | | [place] [address] | | | | + + + + + + | MCHC | 33.7Comment: Testing | 32.0 - 35.5 | EXTERNAL | | | | performed at [facility], [address] | g/dL | LAB | | | | [address], | | | | | | [place] [address] | | | | + + + + + + | RDW-CV | 41.6Comment: Testing | 37 - 53 fl | EXTERNAL | | | | performed at [facility], [address] | | LAB | | | | [address], | | | | | | [place] [address] | | | | + + + + + + | Platelet | 335Comment: Testing | 150 - 400 K/uL | EXTERNAL | | | Count | performed at [facility], [address] | | LAB | | | Plasma | [address], | | | | | | [place] [address] | | | | + + + + + + | MPV | 8.8Comment: Testing | fl | EXTERNAL | | | | performed at [facility], [address] | | LAB | | | | [address], | | | | | | [place] [address] | | | | + + + + + + | Differentia | AUTOMATEDComment: | | EXTERNAL | | | l Type | Testing performed at | | LAB | | | | [facility], [address] | | | | | | [place] | | | | | | [address] | | | | + + + + + + | % Segmented | 75.31Comment: Testing | % | EXTERNAL | | | | performed at [facility], [address] | | LAB | | | Neutrophils | [address], | | | | | | [place] [address] | | | | + + + + + + | % | 17.39Comment: Testing | % | EXTERNAL | | | Lymphocytes | performed at [facility], [address] | | LAB | | | | [address], | | | | | | [place] [address] | | | | + + + + + + | % Monocytes | 7.05Comment: Testing | % | EXTERNAL | | | | performed at [facility], [address] | | LAB | | | | [address], | | | | | | [place] [address] | | | | + + + + + + | % | 0.06Comment: Testing | % | EXTERNAL | | | Eosinophils | performed at [facility], [address] | | LAB | | | | [address], | | | | | | [place] [address] | | | | + + + + + + | % Basophils | 0.19Comment: Testing | % | EXTERNAL | | | | performed at [facility], [address] | | LAB | | | | [address], | | | | | | [place] [address] | | | | + + + + + + | Absolute | 10.82 (H)Comment: | 1.90 - 7.40 | EXTERNAL | | | Segmented | Testing performed at | K/uL | LAB | | | Neutrophils | [facility], [address] | | | | | | [place] | | | | | | [address] | | | | + + + + + + | Absolute | 2.50Comment: Testing | 1.00 - 3.90 | EXTERNAL | | | Lymphocytes | performed at [facility], [address] | K/uL | LAB | | | | [address], | | | | | | [place] [address] | | | | + + + + + + | Absolute | 1.01 (H)Comment: Testing | 0.00 - 0.80 | EXTERNAL | | | Monocytes | performed at [facility], [address] | K/uL | LAB | | | | [address], | | | | | | [place] [address] | | | | + + + + + + | Absolute | 0.01Comment: Testing | 0.00 - 0.50 | EXTERNAL | | | Eosinophils | performed at [facility], [address] | K/uL | LAB | | | | [address], | | | | | | [place] [address] | | | | + + + + + + | Absolute | 0.03Comment: Testing | 0.00 - 0.10 | EXTERNAL | | | Basophils | performed at [facility], [address] | K/uL | LAB | | | | [address], | | | | | | [place] [address] | | | | + + + + + + + + | Specimen | + + | Blood specimen | | (specimen) | + + + +---------+ + + | Performing | Address | City/State/Zipcode | Phone Number | | Organization | | | | + +---------+ + + | EXTERNAL LAB | | | | + +---------+ + + Phosphorus (03/07/2016 4:50 AM PST) + + + + + + | Component | Value | Ref Range | Performed | Pathologist | | | | | At | Signature | + + + + + + | PHOSPHORUS | 2.1 (L)Comment: Testing | 2.3 - 4.8 mg/dL | EXTERNAL | | | | performed at [facility], [address] | | LAB | | | | [address], | | | | | | [place] [address] | | | | + + + [...] + +---------+ + + Comprehensive Metabolic Panel (03/07/2016 4:50 AM PST) + + + + + + | Component | Value | Ref Range | Performed | Pathologist | | | | | At | Signature | + + + + + + | Na | 136Comment: Testing | 135 - 145 | EXTERNAL | | | | performed at [facility], [address] | mmol/L | LAB | | | | [address], | | | | | | [place] [address] | | | | + + + + + + | K | 3.0 (L)Comment: Testing | 3.5 - 4.9 | EXTERNAL | | | | performed at [facility], [address] | mmol/L | LAB | | | | [address], | | | | | | [place] [address] | | | | + + + + + + | Cl | 99Comment: Testing | 99 - 109 mmol/L | EXTERNAL | | | | performed at [facility], [address] | | LAB | | | | [address], | | | | | | [place] [address] | | | | + + + + + + | CO2 | 24Comment: Testing | 23 - 32 mmol/L | EXTERNAL | | | | performed at [facility], [address] | | LAB | | | | [address], | | | | | | [place] [address] | | | | + + + + + + | Anion Gap | 16Comment: Testing | 5 - 20 mmol/L | EXTERNAL | | | | performed at [facility], [address] | | LAB | | | | [address], | | | | | | [place], [place] [address] | | | | + + + + + + | Glucose, | 172 (H)Comment: Testing | 65 - 99 mg/dL | EXTERNAL | | | Fasting | performed at [facility], [address] | | LAB | | | | [address], | | | | | | [place], [place] [address] | | | | + + + + + + | BUN | 12Comment: Testing | 8 - 25 mg/dL | EXTERNAL | | | | performed at [facility], [address] | | LAB | | | | [address], | | | | | | [place] [address] | | | | + + + + + + | Creatinine | 0.6Comment: Testing | 0.50 - 1.00 | EXTERNAL | | | | performed at [facility], [address] | mg/dL | LAB | | | | [address], | | | | | | [place] [address] | | | | + + + + + + | BUN/Creatin | 20Comment: Testing | | EXTERNAL | | | ine Ratio | performed at [facility], [address] | | LAB | | | | [address], | | | | | | [place] [address] | | | | + + + + + + | Calcium | 9.5Comment: Testing | 8.5 - 10.5 | EXTERNAL | | | | performed at [facility], [address] | mg/dL | LAB | | | | [address], | | | | | | [place] [address] | | | | + + + + + + | Protein, | 6.7Comment: Testing | 6.3 - 8.2 g/dL | EXTERNAL | | | Total | performed at [facility], [address] | | LAB | | | | [address], | | | | | | [place] [address] | | | | + + + + + + | Albumin | 3.3Comment: Testing | 3.3 - 4.8 g/dL | EXTERNAL | | | | performed at [facility], [address] | | LAB | | | | [address], | | | | | | [place] [address] | | | | + + + + + + | Globulin | 3.4Comment: Testing | 1.3 - 4.9 g/dL | EXTERNAL | | | | performed at [facility], [address] | | LAB | | | | [address], | | | | | | [place] [address] | | | | + + + + + + | A/G Ratio | 1.0Comment: Testing | 1.0 - 2.4 | EXTERNAL | | | | performed at [facility], [address] | | LAB | | | | [address], | | | | | | [place] [address] | | | | + + + + + + | Bilirubin | 0.5Comment: Testing | 0.1 - 1.5 mg/dL | EXTERNAL | | | Total | performed at [facility], [address] | | LAB | | | | [address], | | | | | | [place] [address] | | | | + + + + + + | ALP, | 80Comment: Testing | 35 - 115 U/L | EXTERNAL | | | External | performed at [facility], [address] | | LAB | | | | [address], | | | | | | [place] [address] | | | | + + + + + + | AST | 11Comment: Testing | 10 - 45 U/L | EXTERNAL | | | | performed at [facility], [address] | | LAB | | | | [address], | | | | | | [place] [id number] | | | | + + + + + + | ALT | 14Comment: Testing | 10 - 65 U/L | EXTERNAL | | | | performed at [facility], [address] | | LAB | | | | [address] [facility], | | | | | | [place] [address] | | | | + + + [...] | | | | | | at [facility], [address] | | | | | | [address] [facility], | | | | | | [place] [address] | | | | + + + + + + + + | Specimen | + + | Blood specimen | | (specimen) | + + + +---------+ + + | Performing | Address | City/State/Zipcode | Phone Number | | Organization | | | | + +---------+ + + | EXTERNAL LAB | | | | + +---------+ + + POC Glucose (03/06/2016 9:12 PM PST) + + + + + + | Component | Value | Ref Range | Performed | Pathologist | | | | | At | Signature | + + + + + + | Glucose, | 200 (H)Comment: Testing | 65 - 99 mg/dL | EXTERNAL | | | Fingerstick | performed at [facility];[address] | | LAB | | | | [address];[place] | | | | | | [address] | | | | + + + + + + + + | Specimen | + + | | + + + +---------+ + + | Performing | Address | City/State/Zipcode | Phone Number | | Organization | | | | + +---------+ + + | EXTERNAL LAB | | | | + +---------+ + + Potassium (03/06/2016 5:31 PM PST) + + + + + + | Component | Value | Ref Range | Performed | Pathologist | | | | | At | Signature | + + + + + + | K | 3.7Comment: SLT | 3.5 - 4.9 | EXTERNAL | | | | HEMOLYSISTesting | mmol/L | LAB | | | | performed at [facility];[address] | | | | | | [address];[place] | | | | | | [address] | | | | + + + + + + + + | Specimen | + + | Blood specimen | | (specimen) | + + + +---------+ + + | Performing | Address | City/State/Zipcode | Phone Number | | Organization | | | | + +---------+ + + | EXTERNAL LAB | | | | + +---------+ + + POC Glucose (03/06/2016 4:09 PM PST) + + + + + + | Component | Value | Ref Range | Performed | Pathologist | | | | | At | Signature | + + + + + + | Glucose, | 168 (H)Comment: Testing | 65 - 99 mg/dL | EXTERNAL | | | Fingerstick | performed at [facility];[address] | | LAB | | | | [address];[place] | | | | | | [address] | | | | + + + + + + + + | Specimen | + + | | + + + +---------+ + + | Performing | Address | City/State/Zipcode | Phone Number | | Organization | | | | + +---------+ + + | EXTERNAL LAB | | | | + +---------+ + + POC Glucose (03/06/2016 11:03 AM PST) + + + + + + | Component | Value | Ref Range | Performed | Pathologist | | | | | At | Signature | + + + + + + | Glucose, | 201 (H)Comment: Testing | 65 - 99 mg/dL | EXTERNAL | | | Fingerstick | performed at [facility];[address] | | LAB | | | | [address];[place] | | | | | | [address] | | | | + + + + + + + + | Specimen | + + | | + + + +---------+ + + | Performing | Address | City/State/Zipcode | Phone Number | | Organization | | | | + +---------+ + + | EXTERNAL LAB | | | | + +---------+ + + Slide Scan (DNS) (03/06/2016 8:07 AM PST) + + + + + + | Component | Value | Ref Range | Performed | Pathologist | | | | | At | Signature | + + + + + + | SLIDE | DONEComment: Testing | | EXTERNAL | | | REVIEWED | performed at [facility] | | LAB | | | | [address];[place] | | | | | | [address] | | | | + + + + + + + + | Specimen | + + | | + + + +---------+ + + | Performing | Address | City/State/Zipcode | Phone Number | | Organization | | | | + +---------+ + + | EXTERNAL LAB | | | | + +---------+ + + Erythropoietin (03/06/2016 8:07 AM PST) + + + + + + | Component | Value | Ref Range | Performed | Pathologist | | | | | At | Signature | + + + + + + | ERYTHROPOIE | 1.9 (L)Comment: THE | 3.5 - 24.0 | EXTERNAL | | | TIN | ERYTHROPOIETIN REFERENCE | mIU/mL | LAB | | | | RANGE IS BASED ON DATA | | | | | | FROM HEALTHYADULTS WITH | | | | | | NORMAL HEMATOCRIT | | | | | | VALUES.ERYTHROPOIETIN IS | | | | | | INCREASED IN ANEMIAS, | | | | | | SECONDARY | | | | | | POLYCYTHEMIA, | | | | | | AND ERYTHROPOIETIN | | | | | | PRODUCING TUMORS, AND IS | | | | | | DECREASED INPRIMARY | | | | | | POLYCYTHEMIA AND RENAL | | | | | | FAILURE.Testing | | | | | | performed at [facility], [address] | | | | | | [facility] | | | | | | [place] [address] | | | | + + + + + + + + | Specimen | + + | Blood specimen | | (specimen) | + + + +---------+ + + | Performing | Address | City/State/Zipcode | Phone Number | | Organization | | | | + +---------+ + + | EXTERNAL LAB | | | | + +---------+ + + POC Glucose (03/06/2016 5:19 AM PST) + + + + + + | Component | Value | Ref Range | Performed | Pathologist | | | | | At | Signature | + + + + + + | Glucose, | 208 (H)Comment: Testing | 65 - 99 mg/dL | EXTERNAL | | | Fingerstick | performed at [facility];[address] | | LAB | | | | [address];[place], [place] | | | | | | [address] | | | | + + + + + + + + | Specimen | + + | | + + + +---------+ + + | Performing | Address | City/State/Zipcode | Phone Number | | Organization | | | | + +---------+ + + | EXTERNAL LAB | | | | + +---------+ + + External Lab: CBC (03/06/2016 5:05 AM PST) + + + + + + | Component | Value | Ref Range | Performed | Pathologist | | | | | At | Signature | + + + + + + | WBC | 19.22 (H)Comment: | 3.80 - 11.00 | EXTERNAL | | | | Testing performed at | K/uL | LAB | | | | [facility], [address] [facility] [address] | | | [address], [place], [place] | | | | | | [address] | | | | + + + + + + | RED CELL | 5.68 (H)Comment: Testing | 3.70 - 5.10 | EXTERNAL | | | COUNT | performed at [facility], [address] | M/[address] | LAB | | | | [address], | | | | | | [place] [address] | | | | + + + + + + | Hgb | 17.2 (H)Comment: Testing | 11.3 - 15.5 | EXTERNAL | | | | performed at [facility], [address] | g/dL | LAB | | | | [address], | | | | | | [place] [address] | | | | + + + + + + | Hematocrit, | 52.1 (H)Comment: Testing | 34.0 - 46.0 % | EXTERNAL | | | POC | performed at [facility], [address] | | LAB | | | | [address], | | | | | | [place] [address] | | | | + + + + + + | MCV | 91.9Comment: Testing | 80.0 - 100.0 fl | EXTERNAL | | | | performed at [facility], [address] | | LAB | | | | [address], | | | | | | [place] [address] | | | | + + + + + + | MCH | 30.3Comment: Testing | 27.0 - 34.0 pg | EXTERNAL | | | | performed at [facility], [address] | | LAB | | | [address], | | | | | | [place] [address] | | | | + + + + + + | MCHC | 33.0Comment: Testing | 32.0 - 35.5 | EXTERNAL | | | | performed at [facility], [address] | g/dL | LAB | | | | [address], | | | | | | [place] [address] | | | | + + + + + + | RDW-CV | 42.0Comment: Testing | 37 - 53 fl | EXTERNAL | | | | performed at [facility], [address] | | LAB | | | | [address], | | | | | | [place] [address] | | | | + + + + + + | Platelet | 357Comment: Testing | 150 - 400 K/uL | EXTERNAL | | | Count | performed at [facility], [address] | | LAB | | | Plasma | [address], | | | | | | [place] [address] | | | | + + + + + + | MPV | 8.9Comment: Testing | fl | EXTERNAL | | | | performed at [facility], [address] | | LAB | | | | [address], | | | | | | [place] [address] | | | | + + + + + + | Differentia | AUTOMATEDComment: | | EXTERNAL | | | l Type | Testing performed at | | LAB | | | | [facility], [address] | | | | | | [place] | | | | | | [address] | | | | + + + + + + | % Segmented | 83.31Comment: Testing | % | EXTERNAL | | | | performed at [facility], [address] | | LAB | | | Neutrophils | [address], | | | | | | [place] [address] | | | | + + + + + + | % | 10.09Comment: Testing | % | EXTERNAL | | | Lymphocytes | performed at [facility], [address] | | LAB | | | | [address], | | | | | | [place] [address] | | | | + + + + + + | % Monocytes | 6.44Comment: Testing | % | EXTERNAL | | | | performed at [facility], [address] | | LAB | | | | [address], | | | | | | [place] [address] | | | | + + + + + + | % | 0.03Comment: Testing | % | EXTERNAL | | | Eosinophils | performed at [facility], [address] | | LAB | | | | [address], | | | | | | [place] [address] | | | | + + + + + + | % Basophils | 0.13Comment: Testing | % | EXTERNAL | | | | performed at [facility], [address] | | LAB | | | | [address], | | | | | | [place] [address] | | | | + + + + + + | Absolute | 16.01 (H)Comment: | 1.90 - 7.40 | EXTERNAL | | | Segmented | Testing performed at | K/uL | LAB | | | Neutrophils | [facility], [address] | | | | | | [place] | | | | | | [address] | | | | + + + + + + | Absolute | 1.94Comment: Testing | 1.00 - 3.90 | EXTERNAL | | | Lymphocytes | performed at [facility], [address] | K/uL | LAB | | | | [address], | | | | | | [place] [address] | | | | + + + + + + | Absolute | 1.24 (H)Comment: Testing | 0.00 - 0.80 | EXTERNAL | | | Monocytes | performed at [facility], [address] | [address] | LAB | | | | [address], | | | | | | [place] [address] | | | | + + + + + + | Absolute | 0.01Comment: Testing | 0.00 - 0.50 | EXTERNAL | | | Eosinophils | performed at [facility], [address] | K/uL | LAB | | | | [address], | | | | | | [place] [address] | | | | + + + + + + | Absolute | 0.03Comment: Testing | 0.00 - 0.10 | EXTERNAL | | | Basophils | performed at [facility], [address] | K/uL | LAB | | | | [address], | | | | | | [place] [address] | | | | + + + + + + + + | Specimen | + + | Blood specimen | | (specimen) | + + + +---------+ + + | Performing | Address | City/State/Zipcode | Phone Number | | Organization | | | | + +---------+ + + | EXTERNAL LAB | | | | + +---------+ + + T4, Free (03/06/2016 5:05 AM PST) + + + + + + | Component | Value | Ref Range | Performed | Pathologist | | | | | At | Signature | + + + + + + | FREE T4 | 1.0Comment: Testing | 0.7 - 1.5 ng/dL | EXTERNAL | | | (REF) | performed at [facility], [address] | | LAB | | | | [address], | | | | | | [place] [address] | | | | + + + + + + + + | Specimen | + + | Blood specimen | | (specimen) | + + + +---------+ + + | Performing | Address | City/State/Zipcode | Phone Number | | Organization | | | | + +---------+ + + | EXTERNAL LAB | | | | + +---------+ + + Phosphorus (03/06/2016 5:05 AM PST) + + + + + + | Component | Value | Ref Range | Performed | Pathologist | | | | | At | Signature | + + + + + + | PHOSPHORUS | 2.2 (L)Comment: Testing | 2.3 - 4.8 mg/dL | EXTERNAL | | | | performed at [facility], [address] | | LAB | | | | [address], | | | | | | [place] [address] | | | | + + + + + + + + | Specimen | + + | Blood specimen | | (specimen) | + + + +---------+ + + | Performing | Address | City/State/Zipcode | Phone Number | | Organization | | | | + +---------+ + + | EXTERNAL LAB | | | | + +---------+ + + Magnesium (03/06/2016 5:05 AM PST) + + + + + + | Component | Value | Ref Range | Performed | Pathologist | | | | | At | Signature | + + + + + + | Magnesium | 2.3Comment: Testing | 1.7 - 2.4 mg/dL | EXTERNAL | | | | performed at [facility], [address] | | LAB | | | | [address], | | | | | | [place] [address] | | | | + + + [...] + +---------+ + + Comprehensive Metabolic Panel (03/06/2016 5:05 AM PST) + + + + + + | Component | Value | Ref Range | Performed | Pathologist | | | | | At | Signature | + + + + + + | Na | 138Comment: Testing | 135 - 145 | EXTERNAL | | | | performed at [facility], [address] | mmol/L | LAB | | | | [address], | | | | | | [place] [address] | | | | + + + + + + | K | 3.4 (L)Comment: Testing | 3.5 - 4.9 | EXTERNAL | | | | performed at [facility], [address] | mmol/L | LAB | | | | [address], | | | | | | [place] [address] | | | | + + + + + + | Cl | 101Comment: Testing | 99 - 109 mmol/L | EXTERNAL | | | | performed at [facility], [address] | | LAB | | | | [address], | | | | | | [place] [address] | | | | + + + + + + | CO2 | 24Comment: Testing | 23 - 32 mmol/L | EXTERNAL | | | | performed at [facility], [address] | | LAB | | | | [address], | | | | | | [place] [address] | | | | + + + + + + | Anion Gap | 16Comment: Testing | 5 - 20 mmol/L | EXTERNAL | | | | performed at [facility], [address] | | LAB | | | | [address], | | | | | | [place] [address] | | | | + + + + + + | Glucose, | 204 (H)Comment: Testing | 65 - 99 mg/dL | EXTERNAL | | | Fasting | performed at [facility], [address] | | LAB | | | | [address], | | | | | | [place] [address] | | | | + + + + + + | BUN | 13Comment: Testing | 8 - 25 mg/dL | EXTERNAL | | | | performed at [facility], [address] | | LAB | | | | [address], | | | | | | [place] [address] | | | | + + + + + + | Creatinine | 0.6Comment: Testing | 0.50 - 1.00 | EXTERNAL | | | | performed at [facility], [address] | mg/dL | LAB | | | | [address], | | | | | | [place] [address] | | | | + + + + + + | BUN/Creatin | 22Comment: Testing | | EXTERNAL | | | ine Ratio | performed at [facility], [address] | | LAB | | | | [address], | | | | | | [place] [address] | | | | + + + + + + | Calcium | 9.7Comment: Testing | 8.5 - 10.5 | EXTERNAL | | | | performed at [facility], [address] | mg/dL | LAB | | | | [address], | | | | | | [place] [address] | | | | + + + + + + | Protein, | 7.5Comment: Testing | 6.3 - 8.2 g/dL | EXTERNAL | | | Total | performed at [facility], [address] | | LAB | | | | [address], | | | | | | [place] [address] | | | | + + + + + + | Albumin | 3.7Comment: Testing | 3.3 - 4.8 g/dL | EXTERNAL | | | | performed at [facility], [address] | | LAB | | | | [address], | | | | | | [place] [address] | | | | + + + + + + | Globulin | 3.8Comment: Testing | 1.3 - 4.9 g/dL | EXTERNAL | | | | performed at [facility], [address] | | LAB | | | | [address], | | | | | | [place] [address] | | | | + + + + + + | A/G Ratio | 1.0Comment: Testing | 1.0 - 2.4 | EXTERNAL | | | | performed at [facility], [address] | | LAB | | | | [address], | | | | | | [place], [place] [address] | | | | + + + + + + | Bilirubin | 0.5Comment: Testing | 0.1 - 1.5 mg/dL | EXTERNAL | | | Total | performed at [facility], [address] | | LAB | | | | [address], | | | | | | [place] [address] | | | | + + + + + + | ALP, | 87Comment: Testing | 35 - 115 U/L | EXTERNAL | | | External | performed at [facility], [address] | | LAB | | | | [address], | | | | | | [place] [address] | | | | + + + + + + | AST | 14Comment: Testing | 10 - 45 U/L | EXTERNAL | | | | performed at [facility], [address] | | LAB | | | | [address], | | | | | | [place] [address] | | | | + + + + + + | ALT | 23Comment: Testing | 10 - 65 U/L | EXTERNAL | | | | performed at [facility], [address] | | LAB | | | | [facility], | | | | | | [place] [address] | | | | + + + [...] | | | | | | at [facility], [address] | | | | | | [employer], | | | | | | [place] [address] | | | | + + + + + + + + | Specimen | + + | Blood specimen | | (specimen) | + + + +---------+ + + | Performing | Address | City/State/Zipcode | Phone Number | | Organization | | | | + +---------+ + + | EXTERNAL LAB | | | | + +---------+ + + POC Glucose (03/05/2016 9:07 PM PST) + + + + + + | Component | Value | Ref Range | Performed | Pathologist | | | | | At | Signature | + + + + + + | Glucose, | 190 (H)Comment: Testing | 65 - 99 mg/dL | EXTERNAL | | | Fingerstick | performed at [facility];[address] | | LAB | | | | [address];[place], [place] | | | | | | [address] | | | | + + + + + + + + | Specimen | + + | | + + + +---------+ + + | Performing | Address | City/State/Zipcode | Phone Number | | Organization | | | | + +---------+ + + | EXTERNAL LAB | | | | + +---------+ + + CK-MB (03/05/2016 5:50 PM PST) + + + + + -+ | Component | Value | Ref Range | Performed | Pathologist | | | | | At | Signature | + + + + + -+ | CK-MB | 2.0Comment: Testing | 0.5 - 3.6 ng/mL | EXTERNAL | | | | performed at [facility];[address] | | LAB | | | | [address];[place], [place] | | | | | | [address] | | | | + + + + + -+ | CK-MB Index | 4.4Comment: CK INDEX | | EXTERNAL | | | | INTERPRETATION: | | LAB | | | | MMB ng/mL | | | | | | | | | | | |CK INDEX INTERPRETATION: | | | | | | MMB ng/mL | | | | | | | | | | + + + + + -+ + + | Specimen | + + | Blood specimen | | (specimen) | + + + +---------+ + + | Performing | Address | City/State/Zipcode | Phone Number | | Organization | | | | + +---------+ + + | EXTERNAL LAB | | | | + +---------+ + + Troponin I (03/05/2016 5:50 PM PST) + + + + + + | Component | Value | Ref Range | Performed | Pathologist | | | | | At | Signature | + + + + + + | Troponin I, | <0.020Comment: 0.00 to | 0.00 - 0.10 | EXTERNAL | | | Qual | 0.10 CONSISTENT WITH | ng/mL | LAB | | | | NORMAL POPULATION0.11 | | | | | | to 0.60 CONSISTENT | | | | | | WITH INCREASED RISK FOR | | | | | | ADVERSE OUTCOMES> 0.60 | | | | | | CONSISTENT | | | | | | WITH WHO CRITERIA FOR | | | | | | ACUTE [place] Testing | | | | | | performed at [facility];[address] | | | | | | [address];[place], [place] | | | | | | [address] | | | | + + + + + + + + | Specimen | + + | Blood specimen | | (specimen) | + + + +---------+ + + | Performing | Address | City/State/Zipcode | Phone Number | | Organization | | | | + +---------+ + + | EXTERNAL LAB | | | | + +---------+ + + CK Total (03/05/2016 5:50 PM PST) + + + + + + | Component | Value | Ref Range | Performed | Pathologist | | | | | At | Signature | + + + + + + | CK, Total | 45Comment: Testing | 30 - 240 U/L | EXTERNAL | | | | performed at [facility] | | LAB | | | | [address];[place], [place] | | | | | | [address] | | | | + + + + + + + + | Specimen | + + | Blood specimen | | (specimen) | + + + +---------+ + + | Performing | Address | City/State/Zipcode | Phone Number | | Organization | | | | + +---------+ + + | EXTERNAL LAB | | | | + +---------+ + + POC Glucose (03/05/2016 3:56 PM PST) + + + + + + | Component | Value | Ref Range | Performed | Pathologist | | | | | At | Signature | + + + + + + | Glucose, | 229 (H)Comment: Testing | 65 - 99 mg/dL | EXTERNAL | | | Fingerstick | performed at [facility];[address] | | LAB | | | | [address];[place], [place] | | | | | | [address] | | | | + + + + + + + + | Specimen | + + | | + + + +---------+ + + | Performing | Address | City/State/Zipcode | Phone Number | | Organization | | | | + +---------+ + + | EXTERNAL LAB | | | | + +---------+ + + ECHO Complete (03/05/2016 12:15 PM PST) + + | Specimen | + + | | + + + + + | Impressions | Performed At | + + + | 1. Sinus rhythm with extra systolic beats. 2. A 2-dimensional | | | transthoracic echocardiogram with m-mode, spectral and color flow | | | Doppler was perfomed. 3. This was a technically difficult study with | | | suboptimal views. 4. Left ventricular systolic function is | | | hyperdynamic with an estimated EF of >70%. 5. The left ventricle | | | cavity size is normal. 6. Left ventricular wall thickness is normal. | | | 7. The right ventricle is normal in size. 8. The left atrium is | | | normal in size. 9. The right atrium is normal in size. 10. The | | | aortic valve was not well visualized. 11. There is no evidence of | | | aortic regurgitation. 12. There is no evidence of aortic stenosis. | | | 13. The mitral valve is normal. 14. There is trace mitral | | | regurgitation. 15. The tricuspid valve appears structurally normal. | | | 16. Trace tricuspid regurgitation present. 17. The pulmonic valve was | | | not well visualized. 18. There is no pericardial effusion. 19. The | | | IVC is normal size (1.5-2.5cm) and collapses >50% with sniff, | | | consistent with central venous pressures of 5-10mmHg. | | + + + + + + | Narrative | Performed At | + + + | Patient Name: CAPRICE AMADOR Date of : 1955 | | | Performing Physician: Corrine Mendez MD | | | | | | INDICATIONS SHORTNESS OF BREATH CONCLUSIONS | | | 1. Sinus rhythm with extra systolic beats. 2. A | | | 2-dimensional transthoracic echocardiogram with m-mode, spectral and | | | color flow Doppler was perfomed. 3. This was a technically difficult | | | study with suboptimal views. 4. Left ventricular systolic function is | | | hyperdynamic with an estimated EF of >70%. 5. The left ventricle | | | cavity size is normal. 6. Left ventricular wall thickness is normal. | | | 7. The right ventricle is normal in size. 8. The left atrium is | | | normal in size. 9. The right atrium is normal in size. 10. The | | | aortic valve was not well visualized. 11. There is no evidence of | | | aortic regurgitation. 12. There is no evidence of aortic stenosis. | | | 13. The mitral valve is normal. 14. There is trace mitral | | | regurgitation. 15. The tricuspid valve appears structurally normal. | | | 16. Trace tricuspid regurgitation present. 17. The pulmonic valve was | | | not well visualized. 18. There is no pericardial effusion. 19. The | | | IVC is normal size (1.5-2.5cm) and collapses >50% with sniff, | | | consistent with central venous pressures of 5-10mmHg. FINDINGS | | | -------- ECG rhythm: Sinus rhythm with extra systolic beats. Study: | | | A 2-dimensional transthoracic echocardiogram with m-mode, spectral and | | | color flow Doppler was perfomed. Study: This was a technically | | | difficult study with suboptimal views. Left Ventricle: Left | | | ventricular systolic function is hyperdynamic with an estimated EF of | | | >70%. Left Ventricle: The left ventricle cavity size is normal. Left | | | Ventricle: Left ventricular wall thickness is normal. Right | | | Ventricle: The right ventricle is normal in size. Left Atrium: The | | | left atrium is normal in size. Right Atrium: The right atrium is | | | normal in size. Aortic Valve: The aortic valve was not well | | | visualized. Aortic Valve: There is no evidence of aortic | | | regurgitation. Aortic Valve: There is no evidence of aortic stenosis. | | | Mitral Valve: The mitral valve is normal. Mitral Valve: There is | | | trace mitral regurgitation. Tricuspid Valve: The tricuspid valve | | | appears structurally normal. Tricuspid Valve: Trace tricuspid | | | regurgitation present. Tricuspid Valve: The poor TR signal prevents | | | accurate estimation of pulmonary pressures. Pulmonic Valve: The | | | pulmonic valve was not well visualized. Pericardium: There is no | | | pericardial effusion. IVC/Hepatic Veins: The IVC is normal size | | | (1.5-2.5cm) and collapses >50% with sniff, consistent with central | | | venous pressures of 5-10mmHg. MEASUREMENTS IVC: | | | 2.09 cm LA Major: 5.03 cm EDV(Teich): 46.43 ml IVSd: 1.11 | | | cm LVIDd: 3.37 cm LVPWd: 0.95 cm LVOT Diam: 1.99 cm %FS: | | | 38.48 % EF(Teich): 69.97 % ESV(Teich): 13.94 ml IVSs: | | | 1.15 cm LVIDs: 2.07 cm LVPWs: 1.23 cm SV(Teich): 32.49 ml | | | RA Major: 4.34 cm RVIDd: 3.11 cm LAESV(A-L): 28.54 ml | | | LAESV Index (A-L): 15.26 ml/m2 LAAs A2C: 11.59 cm2 LAESV A-L | | | A2C: 27.05 ml LALs A2C: 4.22 cm LAAs A4C: 10.97 cm2 LAESV | | | A-L A4C: 27.00 ml LALs A4C: 3.78 cm TAPSE: 2.65 cm IVC | | | diameter: 1.44 cm IVC collapse: 0.69 cm IVC % collapse: | | | 50.47 % HR: 94.75 BPM AV maxP.76 mmHg AV meanP.21 | | | mmHg AV Vmax: 1.71 m/s AV Vmean: 1.29 m/s AV VTI: 36.39 | | | cm SASHA Vmax: 2.57 cm2 SASHA (VTI): 2.46 cm2 AVAI Vmax: 0.00 | | | cm2/m2 AVAI (VTI): 0.00 cm2/m2 LVCI Dopp: 4.52 l/minm2 LVCO | | | Dopp: 8.45 l/min HR: 94.23 BPM LVOT maxP.94 mmHg LVOT | | | meanP.92 mmHg LVSI Dopp: 47.97 ml/m2 LVSV Dopp: 89.71 | | | ml LVOT Vmax: 1.40 m/s LVOT Vmean: 1.07 m/s LVOT VTI: | | | 28.62 cm MCO: 373.70 ms MV A Clark: 1.41 m/s MV DecT: 129.43 | | | ms MV E Clark: 1.01 m/s MV E/A Ratio: 0.71 MV PHT: 36.50 ms | | | MVA By PHT: 6.02 cm2 MV A Dur: 152.24 ms Septal e': 0.06 | | | m/s Septal E/e': 16.44 Lateral e': 0.14 m/s Lateral E/e': | | | 7.19 P Vein A: 0.41 m/s P Vein A Dur: 79.58 ms P Vein D: | | | 0.54 m/s P Vein S/D Ratio: 1.62 P Vein S: 0.88 m/s HR: | | | 98.52 BPM PV maxP.55 mmHg PV meanP.96 mmHg PV Vmax: | | | 0.94 m/s PV Vmean: 0.65 m/s PV VTI: 18.95 cm RV S': | | | 0.15 m/s TV A Clark: 0.91 m/s TV Dec [place]: 4.46 m/s2 TV Dec | | | Time: 129.57 ms TV E Clark: 0.57 m/s TV E/A Ratio: 0.63 | | | Cutting Machine Operator: [id number] Authenticated by: Corrine Mendez MD Report | | | Date/Time: -- | | + + + + + | Procedure Note | + + | Niraj Lepe - 11/23/2018 9:09 AM PDT Patient Name: Bebeto AMADOR of | | : 1955 Performing Physician: Corrine Mendez | | INDICATIONS S | | HORTNESS OF BREATH CONCLUSIONS 1. Sinus rhythm with extra systolic beats.2. A | | 2-dimensional transthoracic echocardiogram with m-mode, spectral and color flow Doppler | | was perfomed.3. This was a technically difficult study with suboptimal views.4. Left | | ventricular systolic function is hyperdynamic with an estimated EF of >70%.5. The left | | ventricle cavity size is normal.6. Left ventricular wall thickness is normal.7. The | | right ventricle is normal in size.8. The left atrium is normal in size.9. The right | | atrium is normal in size.10. The aortic valve was not well visualized.11. There is no | | evidence of aortic regurgitation.12. There is no evidence of aortic stenosis.13. The | | mitral valve is normal.14. There is trace mitral regurgitation.15. The tricuspid valve | | appears structurally normal.16. Trace tricuspid regurgitation present.17. The pulmonic | | valve was not well visualized.18. There is no pericardial effusion.19. The IVC is normal | | size (1.5-2.5cm) and collapses >50% with sniff, consistent with central venous | | pressures of 5-10mmHg. FINDINGS--------ECG rhythm: Sinus rhythm with extra systolic | | beats.Study: A 2-dimensional transthoracic echocardiogram with m-mode, spectral and | | color flow Doppler was perfomed.Study: This was a technically difficult study with | | suboptimal views.Left Ventricle: Left ventricular systolic function is hyperdynamic with | | an estimated EF of >70%.Left Ventricle: The left ventricle cavity size is normal.Left | | Ventricle: Left ventricular wall thickness is normal.Right Ventricle: The right | | ventricle is normal in size.Left Atrium: The left atrium is normal in size.Right Atrium: | | The right atrium is normal in size.Aortic Valve: The aortic valve was not well | | visualized.Aortic Valve: There is no evidence of aortic regurgitation.Aortic Valve: | | There is no evidence of aortic stenosis.Mitral Valve: The mitral valve is normal.Mitral | | Valve: There is trace mitral regurgitation.Tricuspid Valve: The tricuspid valve appears | | structurally normal.Tricuspid Valve: Trace tricuspid regurgitation present.Tricuspid | | Valve: The poor TR signal prevents accurate estimation of pulmonary pressures.Pulmonic | | Valve: The pulmonic valve was not well visualized.Pericardium: There is no pericardial | | effusion.IVC/Hepatic Veins: The IVC is normal size (1.5-2.5cm) and collapses >50% with | | sniff, consistent with central venous pressures of 5-10mmHg. | | MEASUREMENTS IVC: 2.09 cmLA Major: 5.03 cmEDV(Teich): 46.43 mlIVSd: | | 1.11 cmLVIDd: 3.37 cmLVPWd: 0.95 cmLVOT Diam: 1.99 cm%FS: 38.48 %EF(Teich): | | 69.97 %ESV(Teich): 13.94 mlIVSs: 1.15 cmLVIDs: 2.07 cmLVPWs: 1.23 cmSV(Teich): | | 32.49 mlRA Major: 4.34 cmRVIDd: 3.11 cmLAESV(A-L): 28.54 mlLAESV Index (A-L): | | 15.26 ml/m2LAAs A2C: 11.59 [id number] A-L A2C: 27.05 mlLALs A2C: 4.22 cmLAAs A4C: | | 10.97 [id number] A-L A4C: 27.00 mlLALs A4C: 3.78 cmTAPSE: 2.65 cmIVC diameter: | | 1.44 cmIVC collapse: 0.69 cmIVC % collapse: 50.47 %HR: 94.75 BPMAV maxP.76 | | mmHgAV meanP.21 mmHgAV Vmax: 1.71 m/Damián Vmean: 1.29 m/Damián VTI: 36.39 cmAVA | | Vmax: 2.57 cm2AVA (VTI): 2.46 ng2YSFR Vmax: 0.00 cm2/m2AVAI (VTI): 0.00 | | cm2/m2LVCI Dopp: 4.52 l/[id number] Dopp: 8.45 l/minHR: 94.23 BPMLVOT maxP.94 | | mmHgLVOT meanP.92 mmHgLVSI Dopp: 47.97 ml/m2LVSV Dopp: 89.71 mlLVOT Vmax: | | 1.40 m/sLVOT Vmean: 1.07 m/sLVOT VTI: 28.62 cmMCO: 373.70 msMV A Clark: 1.41 m/sMV | | DecT: 129.43 msMV E [place]: 1.01 m/sMV E/A Ratio: 0.71MV PHT: 36.50 msMVA By PHT: | | 6.02 cm2MV A Dur: 152.24 msSeptal e': 0.06 m/sSeptal E/e': 16.44Lateral e': | | 0.14 m/sLateral E/e': 7.19P Vein A: 0.41 m/sP Vein A Dur: 79.58 msP Vein D: 0.54 | | m/sP Vein S/D Ratio: 1.62P Vein S: 0.88 m/sHR: 98.52 BPMPV maxP.55 mmHgPV | | meanP.96 mmHgPV Vmax: 0.94 m/sPV Vmean: 0.65 m/sPV VTI: 18.95 cmRV S': | | 0.15 m/sTV A Clark: 0.91 m/sTV Dec [place]: 4.46 m/s2TV Dec Time: 129.57 msTV E Clark: | | 0.57 m/sTV E/A Ratio: 0.63 Cutting Machine Operator: [id number] by: Corrine Mendez | | MDReport Date/Time: -- IMPRESSION: 1. Sinus rhythm with extra systolic beats.2. A | | 2-dimensional transthoracic echocardiogram with m-mode, spectral and color flow Doppler | | was perfomed.3. This was a technically difficult study with suboptimal views.4. Left | | ventricular systolic function is hyperdynamic with an estimated EF of >70%.5. The left | | ventricle cavity size is normal.6. Left ventricular wall thickness is normal.7. The | | right ventricle is normal in size.8. The left atrium is normal in size.9. The right | | atrium is normal in size.10. The aortic valve was not well visualized.11. There is no | | evidence of aortic regurgitation.12. There is no evidence of aortic stenosis.13. The | | mitral valve is normal.14. There is trace mitral regurgitation.15. The tricuspid valve | | appears structurally normal.16. Trace tricuspid regurgitation present.17. The pulmonic | | valve was not well visualized.18. There is no pericardial effusion.19. The IVC is normal | | size (1.5-2.5cm) and collapses >50% with sniff, consistent with central venous | | pressures of 5-10mmHg. | |LVIDd: 3.37 cm | |LVPWd: 0.95 cm | |LVOT Diam: 1.99 cm | |%FS: 38.48 % | |EF(Teich): 69.97 % | |ESV(Teich): 13.94 ml | |IVSs: 1.15 cm | |LVIDs: 2.07 cm | |LVPWs: 1.23 cm | |SV(Teich): 32.49 ml | |RA Major: 4.34 cm | |RVIDd: 3.11 cm | |LAESV(A-L): 28.54 ml | |LAESV Index (A-L): 15.26 ml/m2 | |LAAs A2C: 11.59 cm2 | |LAESV A-L A2C: 27.05 ml | |LALs A2C: 4.22 cm | |LAAs A4C: 10.97 cm2 | |LAESV A-L A4C: 27.00 ml | |LALs A4C: 3.78 cm | |TAPSE: 2.65 cm | |IVC diameter: 1.44 cm | |IVC collapse: 0.69 cm | |IVC % collapse: 50.47 % | |HR: 94.75 BPM | |AV maxP.76 mmHg | |AV meanP.21 mmHg | |AV Vmax: 1.71 m/s | |AV Vmean: 1.29 m/s | |AV VTI: 36.39 cm | |SASHA Vmax: 2.57 cm2 | |SASHA (VTI): 2.46 cm2 | |AVAI Vmax: 0.00 cm2/m2 | |AVAI (VTI): 0.00 cm2/m2 | |LVCI Dopp: 4.52 l/minm2 | |LVCO Dopp: 8.45 l/min | |HR: 94.23 BPM | |LVOT maxP.94 mmHg | |LVOT meanP.92 mmHg | |LVSI Dopp: 47.97 ml/m2 | |LVSV Dopp: 89.71 ml | |LVOT Vmax: 1.40 m/s | |LVOT Vmean: 1.07 m/s | |LVOT VTI: 28.62 cm | |MCO: 373.70 ms | |MV A Clark: 1.41 m/s | |MV DecT: 129.43 ms | |MV E Clark: 1.01 m/s | |MV E/A Ratio: 0.71 | |MV PHT: 36.50 ms | |MVA By PHT: 6.02 cm2 | |MV A Dur: 152.24 ms | |Septal e': 0.06 m/s | |Septal E/e': 16.44 | |Lateral e': 0.14 m/s | |Lateral E/e': 7.19 | |P Vein A: 0.41 m/s | |P Vein A Dur: 79.58 ms | |P Vein D: 0.54 m/s | |P Vein S/D Ratio: 1.62 | |P Vein S: 0.88 m/s | |HR: 98.52 BPM | |PV maxP.55 mmHg | |PV meanP.96 mmHg | |PV Vmax: 0.94 m/s | |PV Vmean: 0.65 m/s | |PV VTI: 18.95 cm | |RV S': 0.15 m/s | |TV A Clark: 0.91 m/s | |TV Dec [place]: 4.46 m/s2 | |TV Dec Time: 129.57 ms | |TV E Clark: 0.57 m/s | |TV E/A Ratio: 0.63 | | | |Cutting Machine Operator: [email or web address] | |Authenticated by: Corrine Mendez MD | |Report Date/Time: -- | | | |IMPRESSION: | |1. Sinus rhythm with extra systolic beats. | |2. A 2-dimensional transthoracic echocardiogram with m-mode, spectral and color flow Dopple r was perfomed. | |3. This was a technically difficult study with suboptimal views. | |4. Left ventricular systolic function is hyperdynamic with an estimated EF of >70%. | |5. The left ventricle cavity size is normal. | |6. Left ventricular wall thickness is normal. | |7. The right ventricle is normal in size. | |8. The left atrium is normal in size. | |9. The right atrium is normal in size. | |10. The aortic valve was not well visualized. | |11. There is no evidence of aortic regurgitation. | |12. There is no evidence of aortic stenosis. | |13. The mitral valve is normal. | |14. There is trace mitral regurgitation. | |15. The tricuspid valve appears structurally normal. | |16. Trace tricuspid regurgitation present. | |17. The pulmonic valve was not well visualized. | |18. There is no pericardial effusion. | |19. The IVC is normal size (1.5-2.5cm) and collapses >50% with sniff, consistent with centr al venous pressures of 5-10mmHg. | + + CK-MB (03/05/2016 11:48 AM PST) + + + + + -+ | Component | Value | Ref Range | Performed | Pathologist | | | | | At | Signature | + + + + + -+ | CK-MB | 1.9Comment: Testing | 0.5 - 3.6 ng/mL | EXTERNAL | | | | performed at [facility];[address] | | LAB | | | | [address];[place], [place] | | | | | | [address] | | | | + + + + + -+ | CK-MB Index | 4.5Comment: CK INDEX | | EXTERNAL | | | | INTERPRETATION: | | LAB | | | | MMB ng/mL | | | | | | | | | | | |CK INDEX INTERPRETATION: | | | | | | MMB ng/mL | | | | | | | | | | + + + + + -+ + + | Specimen | + + | Blood specimen | | (specimen) | + + + +---------+ + + | Performing | Address | City/State/Zipcode | Phone Number | | Organization | | | | + +---------+ + + | EXTERNAL LAB | | | | + +---------+ + + Troponin I (03/05/2016 11:48 AM PST) + + + + + + | Component | Value | Ref Range | Performed | Pathologist | | | | | At | Signature | + + + + + + | Troponin I, | <0.020Comment: 0.00 to | 0.00 - 0.10 | EXTERNAL | | | Qual | 0.10 CONSISTENT WITH | ng/mL | LAB | | | | NORMAL POPULATION0.11 | | | | | | to 0.60 CONSISTENT | | | | | | WITH INCREASED RISK FOR | | | | | | ADVERSE OUTCOMES> 0.60 | | | | | | CONSISTENT | | | | | | WITH WHO CRITERIA FOR | | | | | | ACUTE [place] Testing | | | | | | performed at [facility];[address] | | | | | | [address] [facility];[place], [place] | | | | | | [address] | | | | + + + + + + + + | Specimen | + + | Blood specimen | | (specimen) | + + + +---------+ + + | Performing | Address | City/State/Zipcode | Phone Number | | Organization | | | | + +---------+ + + | EXTERNAL LAB | | | | + +---------+ + + CK Total (03/05/2016 11:48 AM PST) + + + + + + | Component | Value | Ref Range | Performed | Pathologist | | | | | At | Signature | + + + + + + | CK, Total | 42Comment: Testing | 30 - 240 U/L | EXTERNAL | | | | performed at [facility];[address] | | LAB | | | | [facility];[place], [place] | | | | | | [address] | | | | + + + + + + + + | Specimen | + + | Blood specimen | | (specimen) | + + + +---------+ + + | Performing | Address | City/State/Zipcode | Phone Number | | Organization | | | | + +---------+ + + | EXTERNAL LAB | | | | + +---------+ + + POC Glucose (03/05/2016 11:30 AM PST) + + + + + + | Component | Value | Ref Range | Performed | Pathologist | | | | | At | Signature | + + + + + + | Glucose, | 251 (H)Comment: Testing | 65 - 99 mg/dL | EXTERNAL | | | Fingerstick | performed at [facility];[address] | | LAB | | | | [address];[place], [place] | | | | | | [address] | | | | + + + + + + + + | Specimen | + + | | + + + +---------+ + + | Performing | Address | City/State/Zipcode | Phone Number | | Organization | | | | + +---------+ + + | EXTERNAL LAB | | | | + +---------+ + + Culture, Blood, 2nd Specimen (03/05/2016 10:31 AM PST) + + | Specimen | + + | Blood specimen | | (specimen) | + + + + + | Narrative | Performed At | + + + | Specimen Description BLOOD, PERIPHERAL DRAW | EXTERNAL LAB | | SPECIAL REQUESTS RIGHT HAND CULTURE | | | NO GROWTH 6 DAYS | | + + + + +---------+ + + | Performing | Address | City/State/Zipcode | Phone Number | | Organization | | | | + +---------+ + + | EXTERNAL LAB | | | | + +---------+ + + Culture, Blood (03/05/2016 10:22 AM PST) + + | Specimen | + + | Blood specimen | | (specimen) | + + + + + | Narrative | Performed At | + + + | Specimen Description BLOOD, PERIPHERAL DRAW | EXTERNAL LAB | | SPECIAL REQUESTS RIGHT WRIST CULTURE | | | NO GROWTH 6 DAYS | | + + + + +---------+ + + | Performing | Address | City/State/Zipcode | Phone Number | | Organization | | | | + +---------+ + + | EXTERNAL LAB | | | | + +---------+ + + CK-MB (03/05/2016 5:43 AM PST) + + + + + -+ | Component | Value | Ref Range | Performed | Pathologist | | | | | At | Signature | + + + + + -+ | CK-MB | 1.3Comment: Testing | 0.5 - 3.6 ng/mL | EXTERNAL | | | | performed at [facility];[address] | | LAB | | | | [address];[place], [place] | | | | | | [address] | | | | + + + + + -+ | CK-MB Index | 3.0Comment: CK INDEX | | EXTERNAL | | | | INTERPRETATION: | | LAB | | | | MMB ng/mL | | | | | | | | | | | |CK INDEX INTERPRETATION: | | | | | | MMB ng/mL | | | | | | | | | | + + + + + -+ + + | Specimen | + + | Blood specimen | | (specimen) | + + + +---------+ + + | Performing | Address | City/State/Zipcode | Phone Number | | Organization | | | | + +---------+ + + | EXTERNAL LAB | | | | + +---------+ + + Troponin I (03/05/2016 5:43 AM PST) + + + + + + | Component | Value | Ref Range | Performed | Pathologist | | | | | At | Signature | + + + + + + | Troponin I, | <0.020Comment: 0.00 to | 0.00 - 0.10 | EXTERNAL | | | Qual | 0.10 CONSISTENT WITH | ng/mL | LAB | | | | NORMAL POPULATION0.11 | | | | | | to 0.60 CONSISTENT | | | | | | WITH INCREASED RISK FOR | | | | | | ADVERSE OUTCOMES> 0.60 | | | | | | CONSISTENT | | | | | | WITH WHO CRITERIA FOR | | | | | | ACUTE [place] Testing | | | | | | performed at [facility];[address] | | | | | | [facility];[place], [place] | | | | | | [address] | | | | + + + + + + + + | Specimen | + + | Blood specimen | | (specimen) | + + + +---------+ + + | Performing | Address | City/State/Zipcode | Phone Number | | Organization | | | | + +---------+ + + | EXTERNAL LAB | | | | + +---------+ + + CK Total (03/05/2016 5:43 AM PST) + + + + + + | Component | Value | Ref Range | Performed | Pathologist | | | | | At | Signature | + + + + + + | CK, Total | 44Comment: Testing | 30 - 240 U/L | EXTERNAL | | | | performed at [facility];[address] | | LAB | | | | [address];[place], [place] | | | | | | [address] | | | | + + + + + + + + | Specimen | + + | Blood specimen | | (specimen) | + + + +---------+ + + | Performing | Address | City/State/Zipcode | Phone Number | | Organization | | | | + +---------+ + + | EXTERNAL LAB | | | | + +---------+ + + POC Glucose (03/05/2016 5:17 AM PST) + + + + + + | Component | Value | Ref Range | Performed | Pathologist | | | | | At | Signature | + + + + + + | Glucose, | 252 (H)Comment: Testing | 65 - 99 mg/dL | EXTERNAL | | | Fingerstick | performed at [facility];[address] | | LAB | | | | [address];[place] | | | | | | [address] | | | | + + + + + + + + | Specimen | + + | | + + + +---------+ + + | Performing | Address | City/State/Zipcode | Phone Number | | Organization | | | | + +---------+ + + | EXTERNAL LAB | | | | + +---------+ + + External Lab: CBC (03/05/2016 4:54 AM PST) + + + + + + | Component | Value | Ref Range | Performed | Pathologist | | | | | At | Signature | + + + + + + | WBC | 18.47 (H)Comment: | 3.80 - 11.00 | EXTERNAL | | | | Testing performed at | K/uL | LAB | | | | [facility], [address] [facility] | | | | | | [place] | | | | | | [address] | | | | + + + + + + | RED CELL | 5.43 (H)Comment: Testing | 3.70 - 5.10 | EXTERNAL | | | COUNT | performed at [facility], [address] | M/uL | LAB | | | | [address], | | | | | | [place] [address] | | | | + + + + + + | Hgb | 16.9 (H)Comment: Testing | 11.3 - 15.5 | EXTERNAL | | | | performed at [facility], [address] | g/dL | LAB | | | | [address], | | | | | | [place] [address] | | | | + + + + + + | Hematocrit, | 50.2 (H)Comment: Testing | 34.0 - 46.0 % | EXTERNAL | | | POC | performed at [facility], [address] | | LAB | | | | [address], | | | | | | [place] [address] | | | | + + + + + + | MCV | 92.5Comment: Testing | 80.0 - 100.0 fl | EXTERNAL | | | | performed at [facility], [address] | | LAB | | | | [address], | | | | | | [place] [address] | | | | + + + + + + | MCH | 31.0Comment: Testing | 27.0 - 34.0 pg | EXTERNAL | | | | performed at [facility], [address] | | LAB | | | | [address], | | | | | | [place] [address] | | | | + + + + + + | MCHC | 33.6Comment: Testing | 32.0 - 35.5 | EXTERNAL | | | | performed at [facility], [address] | g/dL | LAB | | | | [address], | | | | | | [place] [address] | | | | + + + + + + | RDW-CV | 42.0Comment: Testing | 37 - 53 fl | EXTERNAL | | | | performed at [facility], [address] | | LAB | | | | [address], | | | | | | [place] [address] | | | | + + + + + + | Platelet | 327Comment: Testing | 150 - 400 K/uL | EXTERNAL | | | Count | performed at [facility], [address] | | LAB | | | Plasma | [address], | | | | | | [place] [address] | | | | + + + + + + | MPV | 8.9Comment: Testing | fl | EXTERNAL | | | | performed at [facility], [address] | | LAB | | | | [address], | | | | | | [place] [address] | | | | + + + + + + | Differentia | MANUALComment: Testing | | EXTERNAL | | | l Type | performed at [facility], [address] | | LAB | | | | [address], | | | | | | [place] [address] | | | | + + + + + + | Segmented | 93Comment: Testing | % | EXTERNAL | | | Neutrophils | performed at [facility], [address] | | LAB | | | Manual | [address], | | | | | | [place] [address] | | | | + + + + + + | % Bands | 2Comment: Testing | % | EXTERNAL | | | | performed at [facility], [address] | | LAB | | | | [address], | | | | | | [place] [address] | | | | + + + + + + | Lymphocytes | 4Comment: Testing | % | EXTERNAL | | | Manual | performed at [facility], [address] | | LAB | | | | [address], | | | | | | [place] [address] | | | | + + + + + + | Monocytes | 1Comment: Testing | % | EXTERNAL | | | Manual | performed at [facility], [address] | | LAB | | | | [address], | | | | | | [place] [address] | | | | + + + + + + | Absolute | 17.18 (H)Comment: | 1.90 - 7.40 | EXTERNAL | | | Neutrophils | Testing performed at | K/uL | LAB | | | | [facility], [address] [facility] | | | | | | [place] | | | | | | [address] | | | | + + + + + + | Bands | 0.37 (H)Comment: Testing | 0.00 - 0.20 | EXTERNAL | | | Manual | performed at [facility], [address] | K/uL | LAB | | | | [address], | | | | | | [place] [address] | | | | + + + + + + | Absolute | 0.74 (L)Comment: Testing | 1.00 - 3.90 | EXTERNAL | | | Lymphocytes | performed at [facility], [address] | K/uL | LAB | | | | [address], | | | | | | [place] [address] | | | | + + + + + + | Absolute | 0.18Comment: Testing | 0.00 - 0.80 | EXTERNAL | | | Monocytes | performed at [facility], [address] | K/uL | LAB | | | | [address], | | | | | | [place] [address] | | | | + + + + + + | RBC | RBC AND PLT MORPHOLOGY | | EXTERNAL | | | Morphology | APPEAR NORMALComment: | | LAB | | | | Testing performed at | | | | | | [facility], [address] | | | | | | [place] | | | | | | [address] | | | | + + + + + + + + | Specimen | + + | Blood specimen | | (specimen) | + + + +---------+ + + | Performing | Address | City/State/Zipcode | Phone Number | | Organization | | | | + +---------+ + + | EXTERNAL LAB | | | | + +---------+ + + TSH (03/05/2016 4:54 AM PST) + + + + + + | Component | Value | Ref Range | Performed | Pathologist | | | | | At | Signature | + + + + + + | TSH | 0.38 (L)Comment: Testing | 0.45 - 5.10 | EXTERNAL | | | | performed at [facility], [address] | uIU/mL | LAB | | | | [address], | | | | | | [place] [address] | | | | + + + + + + + + | Specimen | + + | Blood specimen | | (specimen) | + + + +---------+ + + | Performing | Address | City/State/Zipcode | Phone Number | | Organization | | | | + +---------+ + + | EXTERNAL LAB | | | | + +---------+ + + Phosphorus (03/05/2016 4:54 AM PST) + + + + + + | Component | Value | Ref Range | Performed | Pathologist | | | | | At | Signature | + + + + + + | PHOSPHORUS | 3.3Comment: SPECIMEN | 2.3 - 4.8 mg/dL | EXTERNAL | | | | SLIGHTLY | | LAB | | | | HEMOLYZEDTesting | | | | | | performed at [facility], [address] | | | | | | [address], | | | | | | [place] [address] | | | | + + + + + + + + | Specimen | + + | Blood specimen | | (specimen) | + + + +---------+ + + | Performing | Address | City/State/Zipcode | Phone Number | | Organization | | | | + +---------+ + + | EXTERNAL LAB | | | | + +---------+ + + Magnesium (03/05/2016 4:54 AM PST) + + + + + + | Component | Value | Ref Range | Performed | Pathologist | | | | | At | Signature | + + + + + + | Magnesium | 2.1Comment: SPECIMEN | 1.7 - 2.4 mg/dL | EXTERNAL | | | | SLIGHTLY | | LAB | | | | HEMOLYZEDTesting | | | | | | performed at [facility], [address] | | | | | | [address], | | | | | | [place] [address] | | | | + + + + + + + + | Specimen | + + | Blood specimen | | (specimen) | + + + +---------+ + + | Performing | Address | City/State/Zipcode | Phone Number | | Organization | | | | + +---------+ + + | EXTERNAL LAB | | | | + +---------+ + + Hemoglobin A1C (03/05/2016 4:54 AM PST) + + + + + + | Component | Value | Ref Range | Performed | Pathologist | | | | | At | Signature | + + + + + + | Hemoglobin | 6.5 (H)Comment: The | 4.0 - 6.0 % | EXTERNAL | | | A1c | [place] [employer] | | LAB | | | | Association considers a | | | | | | hemoglobin A1c result of | | | | | | <7.0% to be the goal of | | | | | | diabetic therapy. | | | | | | When results are | | | | | | consistently >8.0%, the | | | | | | ADA suggests | | | | | | reevaluation of the | | | | | | treatment regimen. The | | | | | | testing method used is | | | | | | certified traceable to | | | | | | the Diabetes Control and | | | | | | Complications Trial | | | | | | reference method.Testing | | | | | | performed at [facility], [address] | | | | | [address] | | | | | | [place] [address] | | | | + + + + + + | Glycohemogl | 140Comment: The ADA | mg/dL | EXTERNAL | | | obin | considers an eAG result | | LAB | | | (GHb),Total | of LT 154 mg/dL to be | | | | | | the goal of diabetic | | | | | | therapy. Estimated | | | | | | Average Glucose | | | | | | calculated from | | | | | | hemoglobin A1c by use of | | | | | | the ADA recommended | | | | | | formula.Testing | | | | | | performed at [facility], [address] | | | | | | [address] | | | | | | [place] [address] | | | | + + + + + + + + | Specimen | + + | Blood specimen | | (specimen) | + + + +---------+ + + | Performing | Address | City/State/Zipcode | Phone Number | | Organization | | | | + +---------+ + + | EXTERNAL LAB | | | | + +---------+ + + Lipid Panel (03/05/2016 4:54 AM PST) + + + + + + | Component | Value | Ref Range | Performed | Pathologist | | | | | At | Signature | + + + + + + | Cholesterol | 215 (H)Comment: SPECIMEN | mg/dL | EXTERNAL | | | | SLIGHTLY | | LAB | | | | HEMOLYZEDTesting | | | | | | performed at [facility], [address] | | | | | [address], | | | | | | [place] [address] | | | | + + + + + + | Triglycerid | 108Comment: SPECIMEN | mg/dL | EXTERNAL | | | es | SLIGHTLY | | LAB | | | | HEMOLYZEDTesting | | | | | | performed at [facility], [address] | | | | | [address], | | | | | | [place] [id number] | | | | + + + + + + | HDL | 90Comment: Testing | mg/dL | EXTERNAL | | | | performed at [facility], [address] | | LAB | | | | [address], | | | | | | [place] [address] | | | | + + + + + + | LDL | 103 (H)Comment: Testing | mg/dL | EXTERNAL | | | Cholesterol | performed at [facility], [address] | | LAB | | | , | [address], | | | | | Calculated, | [place] [address] | | | | | External | | | | | + + [...] + +---------+ + + Comprehensive Metabolic Panel (03/05/2016 4:54 AM PST) + + + + + + | Component | Value | Ref Range | Performed | Pathologist | | | | | At | Signature | + + + + + + | Na | 138Comment: Testing | 135 - 145 | EXTERNAL | | | | performed at [facility], [address] | mmol/L | LAB | | | | [address], | | | | | | [place] [address] | | | | + + + + + + | K | 3.7Comment: SPECIMEN | 3.5 - 4.9 | EXTERNAL | | | | SLIGHTLY | mmol/L | LAB | | | | HEMOLYZEDTesting | | | | | | performed at [facility], [address] | | | | | | [address], | | | | | | [place] [address] | | | | + + + + + + | Cl | 103Comment: Testing | 99 - 109 mmol/L | EXTERNAL | | | | performed at [facility], [address] | | LAB | | | | [address], | | | | | | [place] [address] | | | | + + + + + + | CO2 | 23Comment: Testing | 23 - 32 mmol/L | EXTERNAL | | | | performed at [facility], [address] | | LAB | | | | [address], | | | | | | [place] [address] | | | | + + + + + + | Anion Gap | 16Comment: Testing | 5 - 20 mmol/L | EXTERNAL | | | | performed at [facility], [address] | | LAB | | | | [address], | | | | | | [place] [address] | | | | + + + + + + | Glucose, | 245 (H)Comment: SPECIMEN | 65 - 99 mg/dL | EXTERNAL | | | Fasting | SLIGHTLY | | LAB | | | | HEMOLYZEDTesting | | | | | | performed at [facility], [address] | | | | | | [address], | | | | | | [place] [address] | | | | + + + + + + | BUN | 12Comment: Testing | 8 - 25 mg/dL | EXTERNAL | | | | performed at [facility], [address] | | LAB | | | | [address], | | | | | | [place] [address] | | | | + + + + + + | Creatinine | 0.8Comment: SPECIMEN | 0.50 - 1.00 | EXTERNAL | | | | SLIGHTLY | mg/dL | LAB | | | | HEMOLYZEDTesting | | | | | | performed at [facility], [address] | | | | | | [address], | | | | | | [place] [address] | | | | + + + + + + | BUN/Creatin | 15Comment: Testing | | EXTERNAL | | | ine Ratio | performed at [facility], [address] | | LAB | | | | [address], | | | | | | [place] [address] | | | | + + + + + + | Calcium | 9.6Comment: Testing | 8.5 - 10.5 | EXTERNAL | | | | performed at [facility], [address] | mg/dL | LAB | | | | [address], | | | | | | [place] [address] | | | | + + + + + + | Protein, | 8.1Comment: Testing | 6.3 - 8.2 g/dL | EXTERNAL | | | Total | performed at [facility], [address] | | LAB | | | | [address], | | | | | | [place] [address] | | | | + + + + + + | Albumin | 4.2Comment: Testing | 3.3 - 4.8 g/dL | EXTERNAL | | | | performed at [facility], [address] | | LAB | | | | [address], | | | | | | [place] [address] | | | | + + + + + + | Globulin | 3.9Comment: Testing | 1.3 - 4.9 g/dL | EXTERNAL | | | | performed at [facility], [address] | | LAB | | | | [address], | | | | | | [place] [address] | | | | + + + + + + | A/G Ratio | 1.1Comment: Testing | 1.0 - 2.4 | EXTERNAL | | | | performed at [facility], [address] | | LAB | | | | [address], | | | | | | [place] [address] | | | | + + + + + + | Bilirubin | 0.4Comment: SPECIMEN | 0.1 - 1.5 mg/dL | EXTERNAL | | | Total | SLIGHTLY | | LAB | | | | HEMOLYZEDTesting | | | | | | performed at [facility], [address] | | | | | | [address], | | | | | | [place] [address] | | | | + + + + + + | ALP, | 95Comment: Testing | 35 - 115 U/L | EXTERNAL | | | External | performed at [facility], [address] | | LAB | | | | [address], | | | | | | [place] [address] | | | | + + + + + + | AST | 13Comment: SPECIMEN | 10 - 45 U/L | EXTERNAL | | | | SLIGHTLY | | LAB | | | | HEMOLYZEDTesting | | | | | | performed at [facility], [address] | | | | | | [address], | | | | | | [place] [address] | | | | + + + + + + | ALT | 20Comment: SPECIMEN | 10 - 65 U/L | EXTERNAL | | | | SLIGHTLY | | LAB | | | | HEMOLYZEDTesting | | | | | | performed at [facility], [address] | | | | | | [address], | | | | | | [place] [address] | | | | + + + [...] | | | | | | at [facility], [address] | | | | | | [address], | | | | | | [place] [address] | | | | + + + + + + + + | Specimen | + + | Blood specimen | | (specimen) | + + + +---------+ + + | Performing | Address | City/State/Zipcode | Phone Number | | Organization | | | | + +---------+ + + | EXTERNAL LAB | | | | + +---------+ + + D-Dimer (03/05/2016 4:51 AM PST) + + + + + + | Component | Value | Ref Range | Performed | Pathologist | | | | | At | Signature | + + + + + + | D-DIMER, | 0.37Comment: D Dimer | 0.19 - 0.50 | EXTERNAL | | | MANUAL | results less than 0.50 | mg/L FEU | LAB | | | | mg/L FEU may rule out | | | | | | DVT and PE. However, | | | | | | all laboratory results | | | | | | should be interpreted in | | | | | | the context of all | | | | | | available clinical, | | | | | | radiologic and | | | | | | laboratory | | | | | | information.Testing | | | | | | performed at [facility];[address] | | | | | | [facility];[place], [place] | | | | | | [address] | | | | + + + + + + + + | Specimen | + + | Blood specimen | | (specimen) | + + + +---------+ + + | Performing | Address | City/State/Zipcode | Phone Number | | Organization | | | | + +---------+ + + | EXTERNAL LAB | | | | + +---------+ + + Urinalysis, Reflex Microscopic and/or Culture (03/05/2016 3:13 AM PST) + + + + + + | Component | Value | Ref Range | Performed | Pathologist | | | | | At | Signature | + + + + + + | Color | STRAWComment: Testing | | EXTERNAL | | | | performed at [facility];[address] | | LAB | | | | [address];[place] | | | | | | [address] | | | | + + + + + + | Clarity | CLEARComment: Testing | | EXTERNAL | | | | performed at [facility];[address] | | LAB | | | | [address];[place] | | | | | | [address] | | | | + + + + + + | Specific | 1.033 (H)Comment: | 1.002 - 1.030 | EXTERNAL | | | [place] | Testing performed at | | LAB | | | | [facility];[address];[place] [address] | | | | + + + + + + | Leukocyte | NEGATIVEComment: Testing | | EXTERNAL | | | Esterase, | performed at [facility];[address] | | LAB | | | Urine | [address];[place] | | | | | | [address] | | | | + + + + + + | Nitrite, | NEGATIVEComment: Testing | | EXTERNAL | | | Urine | performed at [facility];[address] | | LAB | | | | [address];[place] | | | | | | [address] | | | | + + + + + + | Urobilinoge | NORMALComment: Testing | mg/dL | EXTERNAL | | | n, Urine | performed at [facility];[address] | | LAB | | | | [address];[place] | | | | | | [address] | | | | + + + + + + | Protein, | 100 (A)Comment: Testing | mg/dL | EXTERNAL | | | Urine | performed at [facility];[address] | | LAB | | | | [address];[place] | | | | | | [address] | | | | + + + + + + | pH, Urine | 6.0Comment: Testing | 5.0 - 8.0 | EXTERNAL | | | | performed at [facility];[address] | | LAB | | | | [address];[place] | | | | | | [address] | | | | + + + + + + | Blood, | SMALL (A)Comment: | | EXTERNAL | | | Urine | Testing performed at | | LAB | | | | [facility];[address];[place] [address] | | | | + + + + + + | Ketones | TRACE (A)Comment: | mg/dL | EXTERNAL | | | | Testing performed at | | LAB | | | | [facility];[address];[place] [address] | | | | + + + + + + | Bilirubin, | NEGATIVEComment: Testing | | EXTERNAL | | | Urine | performed at [facility];[address] | | [address] | | | | [address];[place] | | | | | | [address] | | | | + + + + + + | Glucose, | >500 (A)Comment: Testing | mg/dL | EXTERNAL | | | Urine | performed at [facility];[address] | | [address] | | | | [address];[place] | | | | | | [address] | | | | + + + + + + | WBC, UA | 0-2Comment: Testing | 0 - 5 /hpf | EXTERNAL | | | | performed at [facility];[address] | | [address] | | | | [address];[place] | | | | | | [address] | | | | + + + + + + | RBC, UA | 6-10Comment: Testing | 0 - 5 /hpf | EXTERNAL | | | | performed at [facility];[address] | | [address] | | | | [address];[place] | | | | | | [address] | | | | + + + + + + | Bacteria, | NONE SEENComment: | | EXTERNAL | | | UA | Testing performed at | | LAB | | | | [facility];[address];[place] [address] | | | | + + + + + + | Epithelial | 16-25Comment: Testing | /lpf | EXTERNAL | | | Cells | performed at [facility];[address] | | [address] | | | | [address];[place] | | | | | | [address] | | | | + + + + + + + + | Specimen | + + | | + + + +---------+ + + | Performing | Address | City/State/Zipcode | Phone Number | | Organization | | | | + +---------+ + + | EXTERNAL LAB | | | | + +---------+ + + CT Chest wo Contrast (03/05/2016 2:26 AM PST) + + | Specimen | + + | | + + + + + | Impressions | Performed At | + + + | No acute CT finding on noncontrast evaluation of the chest. | | | The lungs are clear. RADIA? Electronically signed by | | | Nick Williamson MD on Mar 05 2016 2:47AM Referring Provider Line: | | | [phone] ID: [id number] | | + + + + + + | Narrative | Performed At | + + + | EXAM: CT CHEST EXAM DATE: 03/05/2016 02:26 AM. CLINICAL | | | HISTORY: Chest pain. COMPARISONS: None. TECHNIQUE: Routine | | | helical CT imaging was performed through the chest. IV contrast: None. | | | Reconstructions: Coronal and sagittal. In accordance with CT | | | protocol optimization, one or more of the following dose reduction | | | techniques were utilized for this exam: automated exposure control, | | | adjustment of mA and/or KV based on patient size, or use of iterative | | | reconstructive technique. FINDINGS: Lungs/Pleura: No significant | | | nodules, bronchial thickening, consolidation, or edema. Pulmonary | | | vasculature is normal. No pericardial or pleural effusion. No | | | pneumothorax. Mediastinum: No bulky adenopathy . Thoracic aorta is | | | mildly calcified and dilated. There is coronary artery calcification. | | | Heart size appears normal. Bones: No significant lytic or blastic | | | lesions. There are moderately advanced hypertrophic degenerative | | | changes throughout the thoracic spine with ventral osteophytes at | | | multiple levels. Ribs are intact. There is incompletely visualized | | | metallic fusion hardware lower cervical spine Visualized | | | Abdomen: There is a 2.5 x 1.2 cm left adrenal nodule, likely adenoma, | | | not significantly changed as compared with prior CT study of | | | 05/27/2013. | | + + + + + | Procedure Note | + + | Niraj Lepe Conversion - 11/23/2018 9:08 AM PDT EXAM:CT CHEST EXAM DATE: 03/05/2016 | | 02:26 AM. CLINICAL HISTORY: Chest pain. COMPARISONS: None. TECHNIQUE:Routine helical CT | | imaging was performed through the chest. IV contrast: None. Reconstructions: Coronal and | | sagittal. In accordance with CT protocol optimization, one or more of the following | | dose reduction techniques were utilized for this exam: automated exposure control, | | adjustment of mA and/or KV based on patient size, or use of iterative reconstructive | | technique. FINDINGS:Lungs/Pleura: No significant nodules, bronchial thickening, | | consolidation, or edema. Pulmonary vasculature is normal. No pericardial or pleural | | effusion. No pneumothorax. Mediastinum: No bulky adenopathy . Thoracic aorta is mildly | | calcified and dilated. There is coronary artery calcification. Heart size appears | | normal. Bones: No significant lytic or blastic lesions. There are moderately advanced | | hypertrophic degenerative changes throughout the thoracic spine with ventral osteophytes | | at multiple levels. Ribs are intact. There is incompletely visualized metallic fusion | | hardware lower cervical spine Visualized Abdomen: There is a 2.5 x 1.2 cm left adrenal | | nodule, likely adenoma, not significantly changed as compared with prior CT study of | | 05/27/2013. IMPRESSION: No acute CT finding on noncontrast evaluation of the chest. | | The lungs are clear. RADIA? Electronically signed by Nick Williamson MD on Mar 05 | | 2015 2:47AM Referring Provider Line: [phone] ID: [id number] | | | |Bones: No significant lytic or blastic lesions. There are moderately advanced hypertrophic degenerative changes throughout the thoracic spine with ventral osteophytes at multiple leve ls. Ribs are intact. There is | |incompletely visualized metallic fusion | |hardware lower cervical spine | | | |Visualized Abdomen: There is a 2.5 x 1.2 cm left adrenal nodule, likely adenoma, not signif icantly changed as compared with prior CT study of 05/27/2013. | | | | | |IMPRESSION: | | | | | |No acute CT finding on noncontrast evaluation of the chest. The lungs are clear. | | | | | | | |RADIA? | | | | Electronically signed by Nick Williamson MD on Mar 05 2016 2:47AM Referring Provider Emna e: [phone] ID: [id number] | + + CT Abdomen Pelvis w Contrast (03/05/2016 12:54 AM PST) + + | Specimen | + + | | + + + + + | Impressions | Performed At | + + + | 1. Diverticulosis, no diverticulitis or other acute inflammatory | | | process. 2. Normal appendix. 3. No bowel obstruction or fluid | | | collections. 4. Stable subcapsular splenic perfusion defect the | | | etiology of which is uncertain. This may represent sequela of old | | | infarct or injury. RADIA Electronically signed by Sylvain | | | MD Trent on Mar 05 2016 1:22AM Referring Provider Line: | | | [phone] ID: [id number] | | + + + + + + | Narrative | Performed At | + + + | EXAM: CT ABDOMEN AND PELVIS EXAM DATE: 03/05/2016 12:55 AM. | | | CLINICAL HISTORY: Abdominal pain. COMPARISONS: 11/16/2015 CT. | | | TECHNIQUE: Routine helical CT imaging was performed through the | | | abdomen and pelvis. IV contrast: 100 mL Isovue-300. Enteric contrast: | | | No. Reconstructions: Coronal and sagittal. In accordance with CT | | | protocol optimization, one or more of the following dose reduction | | | techniques were utilized for this exam: automated exposure control, | | | adjustment of mA and/or KV based on patient size, or use of iterative | | | reconstructive technique. FINDINGS: Lung Bases: Unremarkable. | | | Liver: Normal. No masses. Gallbladder/Bile Ducts: Unremarkable. | | | Spleen: Stable 2.1 x 0.6 cm subcapsular splenic hypodensity | | | possibly fluid collection or perfusion defect. No splenomegaly. | | | Pancreas: Normal. Adrenal Glands: Normal. Kidneys: Stable | | | bilateral renal cysts. No hydronephrosis. Peritoneal Cavity/Bowel: | | | Diverticulosis without diverticulitis. Increased stool volume | | | throughout colon suggesting constipation. No small bowel obstruction. | | | No free air or fluid collections. The appendix is well visualized and | | | normal. Pelvic Organs: Normal. The bladder and visualized pelvic | | | organs are within normal limits. Vasculature: Atherosclerotic | | | aorta without evidence of aneurysm. 4. Stable Bones: No | | | significant abnormality. Other: None. | | + + + + + | Procedure Note | + + | Roberth, Rad Conversion - 11/23/2018 9:09 AM PDT EXAM:CT ABDOMEN AND PELVIS EXAM DATE: | | 03/05/2016 12:55 AM. CLINICAL HISTORY: Abdominal pain. COMPARISONS: 11/16/2015 CT. | | TECHNIQUE: Routine helical CT imaging was performed through the abdomen and pelvis. IV | | contrast: 100 mL Isovue-300. Enteric contrast: No. Reconstructions: Coronal and | | sagittal. In accordance with CT protocol optimization, one or more of the following dose | | reduction techniques were utilized for this exam: automated exposure control, | | adjustment of mA and/or KV based on patient size, or use of iterative reconstructive | | technique. FINDINGS:Lung Bases: Unremarkable. Liver: Normal. No masses. Gallbladder/Bile | | Ducts: Unremarkable. Spleen: Stable 2.1 x 0.6 cm subcapsular splenic hypodensity | | possibly fluid collection or perfusion defect. No splenomegaly. Pancreas: Normal. | | Adrenal Glands: Normal. Kidneys: Stable bilateral renal cysts. No hydronephrosis. | | Peritoneal Cavity/Bowel: Diverticulosis without diverticulitis. Increased stool volume | | throughout colon suggesting constipation. No small bowel obstruction. No free air or | | fluid collections. The appendix is well visualized and normal. Pelvic Organs: Normal. | | The bladder and visualized pelvic organs are within normal limits. Vasculature: | | Atherosclerotic aorta without evidence of aneurysm.4. Stable Bones: No significant | | abnormality. Other: None. IMPRESSION: 1. Diverticulosis, no diverticulitis or other | | acute inflammatory process.2. Normal appendix.3. No bowel obstruction or fluid | | collections.4. Stable subcapsular splenic perfusion defect the etiology of which is | | uncertain. This may represent sequela of old infarct or injury. RADIA Electronically | | signed by Sylvain Newman MD on Mar 05 2016 1:22AM Referring Provider Line: | | [phone] ID: [id number] | |Pancreas: Normal. | | | |Adrenal Glands: Normal. | | | |Kidneys: Stable bilateral renal cysts. No hydronephrosis. | | | |Peritoneal Cavity/Bowel: Diverticulosis without diverticulitis. Increased stool volume thro ughout colon suggesting constipation. No small bowel obstruction. No free air or fluid colle ctions. The appendix is well visualized and normal. | | | |Pelvic Organs: Normal. The bladder and visualized pelvic organs are within normal limits. | | | |Vasculature: Atherosclerotic aorta without evidence of aneurysm. | |4. Stable | | | |Bones: No significant abnormality. | | | |Other: None. | | | |IMPRESSION: | | | |1. Diverticulosis, no diverticulitis or other acute inflammatory process. | |2. Normal appendix. | |3. No bowel obstruction or fluid collections. | |4. Stable subcapsular splenic perfusion defect the etiology of which is uncertain. This may represent sequela of old infarct or injury. | | | |RADIA | | | | Electronically signed by Sylvain Newman MD on Mar 05 2016 1:22AM Referring Provider Arlet ne: [phone] ID: [id number] | + + Troponin I (03/05/2016 12:18 AM PST) + + + + + + | Component | Value | Ref Range | Performed | Pathologist | | | | | At | Signature | + + + + + + | Troponin I, | <0.020Comment: 0.00 to | 0.00 - 0.10 | EXTERNAL | | | Qual | 0.10 CONSISTENT WITH | ng/mL | LAB | | | | NORMAL POPULATION0.11 | | | | | | to 0.60 CONSISTENT | | | | | | WITH INCREASED RISK FOR | | | | | | ADVERSE OUTCOMES> 0.60 | | | | | | CONSISTENT | | | | | | WITH WHO CRITERIA FOR | | | | | | ACUTE [place] Testing | | | | | | performed at [facility];[address] | | | | | | [address];[place] | | | | | | [address] | | | | + + + + + + + + | Specimen | + + | Blood specimen | | (specimen) | + + + +---------+ + + | Performing | Address | City/State/Zipcode | Phone Number | | Organization | | | | + +---------+ + + | EXTERNAL LAB | | | | + +---------+ + + XR Chest 2 Vws (03/04/2016 9:41 PM PST) + + | Specimen | + + | | + + + + + | Impressions | Performed At | + + + | Normal 2-view chest radiography. RADIA Electronically | | | signed by Kelvin oHpson MD on Mar 04 2016 9:59PM Referring Provider | | | Line: [phone] ID: [id number] | | + + + + + + | Narrative | Performed At | + + + | EXAM: CHEST RADIOGRAPHY EXAM DATE: 03/04/2016 09:42 PM. | | | CLINICAL HISTORY: Chest pain. COMPARISON: Date 02/29/2016. | | | TECHNIQUE: 2 views. FINDINGS: Lungs/Pleura: No focal opacities | | | evident. No pneumothorax or pleural effusion. Normal volumes. | | | Mediastinum: Heart and mediastinal contours are unremarkable. | | | Other: Stable lower cervical fusion. No compression fractures | | | identified. | | + + + + + | Procedure Note | + + | Roberth, Rad Conversion - 11/23/2018 9:08 AM PDT EXAM:CHEST RADIOGRAPHY EXAM DATE: | | 03/04/2016 09:42 PM. CLINICAL HISTORY: Chest pain. COMPARISON: Date 02/29/2016. | | TECHNIQUE: 2 views. FINDINGS:Lungs/Pleura: No focal opacities evident. No pneumothorax | | or pleural effusion. Normal volumes. Mediastinum: Heart and mediastinal contours are | | unremarkable. Other: Stable lower cervical fusion. No compression fractures identified. | | IMPRESSION: Normal 2-view chest radiography. RADIA Electronically signed by Kelvin | | MD Mark Anthony on Mar 04 2016 9:59PM Referring Provider Line: [phone] ID: [id number] | |COMPARISON: Date 02/29/2016. | | | |TECHNIQUE: 2 views. | | | |FINDINGS: | |Lungs/Pleura: No focal opacities evident. No pneumothorax or pleural effusion. Normal volum es. | | | |Mediastinum: Heart and mediastinal contours are unremarkable. | | | |Other: Stable lower cervical fusion. No compression fractures identified. | | | |IMPRESSION: | |Normal 2-view chest radiography. | | | |RADIA | | | | Electronically signed by Kelvin Hopson MD on Mar 04 2016 9:59PM Referring Provider Line: [phone] ID: [id number] | + + HISTORICAL LAB PANEL RESULT (03/04/2016 9:31 PM PST) + + + + + + | Component | Value | Ref Range | Performed | Pathologist | | | | | At | Signature | + + + + + + | WBC | 14.18 (H)Comment: | 3.80 - 11.00 | EXTERNAL | | | | Testing performed at | K/uL | LAB | | | | [facility];[address];[place] [address] | | | | + + + + + + | RED CELL | 5.59 (H)Comment: Testing | 3.70 - 5.10 | EXTERNAL | | | COUNT | performed at [facility];[address] | M/uL | LAB | | | | [address];[place] | | | | | | [address] | | | | + + + + + + | Hgb | 17.6 (H)Comment: Testing | 11.3 - 15.5 | EXTERNAL | | | | performed at [facility];[address] | g/dL | LAB | | | | [address];[place] | | | | | | [address] | | | | + + + + + + | Hematocrit, | 51.1 (H)Comment: Testing | 34.0 - 46.0 % | EXTERNAL | | | POC | performed at [facility];[address] | | LAB | | | | [address];[place] | | | | | | [address] | | | | + + + + + + | MCV | 91.4Comment: Testing | 80.0 - 100.0 fl | EXTERNAL | | | | performed at [facility];[address] | | LAB | | | | [address];[place] | | | | | | [address] | | | | + + + + + + | MCH | 31.5Comment: Testing | 27.0 - 34.0 pg | EXTERNAL | | | | performed at [facility];[address] | | LAB | | | | [address];[place] | | | | | | [address] | | | | + + + + + + | MCHC | 34.5Comment: Testing | 32.0 - 35.5 | EXTERNAL | | | | performed at [facility];[address] | g/dL | LAB | | | | [address];[place] | | | | | | [address] | | | | + + + + + + | RDW-CV | 41.6Comment: Testing | 37 - 53 fl | EXTERNAL | | | | performed at [facility];[address] | | LAB | | | | [address];[place] | | | | | | [address] | | | | + + + + + + | Platelet | 359Comment: Testing | 150 - 400 K/uL | EXTERNAL | | | Count | performed at [facility];[address] | | LAB | | | Plasma | [address];[place] | | | | | | [address] | | | | + + + + + + | MPV | 8.4Comment: Testing | fl | EXTERNAL | | | | performed at [facility];[address] | | LAB | | | | [address];[place] | | | | | | [address] | | | | + + + + + + | Differentia | AUTOMATEDComment: | | EXTERNAL | | | l Type | Testing performed at | | LAB | | | | [facility];[address];[place] [address] | | | | + + + + + + | % Segmented | 87.39Comment: Testing | % | EXTERNAL | | | | performed at [facility];[address] | | LAB | | | Neutrophils | [address];[place] | | | | | | [address] | | | | + + + + + + | % | 9.30Comment: Testing | % | EXTERNAL | | | Lymphocytes | performed at [facility];[address] | | LAB | | | | [address];[place] | | | | | | [address] | | | | + + + + + + | % Monocytes | 2.16Comment: Testing | % | EXTERNAL | | | | performed at [facility];[address] | | LAB | | | | [address];[place] | | | | | | [address] | | | | + + + + + + | % | 0.54Comment: Testing | % | EXTERNAL | | | Eosinophils | performed at [facility];[address] | | LAB | | | | [address];[place] | | | | | | [address] | | | | + + + + + + | % Basophils | 0.61Comment: Testing | % | EXTERNAL | | | | performed at [facility];[address] | | LAB | | | | [address];[place] | | | | | | [address] | | | | + + + + + + | Absolute | 12.39 (H)Comment: | 1.90 - 7.40 | EXTERNAL | | | Segmented | Testing performed at | K/uL | LAB | | | Neutrophils | [facility];[address] | | | [address];[place] [address] | | | | + + + + + + | Absolute | 1.32Comment: Testing | 1.00 - 3.90 | EXTERNAL | | | Lymphocytes | performed at [facility];[address] | [address] | LAB | | | | [address];[place] | | | | | | [address] | | | | + + + + + + | Absolute | 0.31Comment: Testing | 0.00 - 0.80 | EXTERNAL | | | Monocytes | performed at [facility];[address] | K/uL | LAB | | | | [address];[place] | | | | | | [address] | | | | + + + + + + | Absolute | 0.08Comment: Testing | 0.00 - 0.50 | EXTERNAL | | | Eosinophils | performed at [facility];[address] | K/uL | LAB | | | | [address];[place] | | | | | | [address] | | | | + + + + + + | Absolute | 0.09Comment: Testing | 0.00 - 0.10 | EXTERNAL | | | Basophils | performed at [facility];[address] | K/uL | LAB | | | | [address];[place] | | | | | | [address] | | | | + + + + + + | RBC | RBC AND PLT MORPHOLOGY | | EXTERNAL | | | Morphology | APPEAR NORMALComment: | | LAB | | | | Testing performed at | | | | | | [facility];[address];[place] [address] | | | | + + + + + + | Platelet | ADEQUATEComment: Testing | | EXTERNAL | | | Estimate | performed at [facility];[address] | | LAB | | | | [address];[place] | | | | | | [address] | | | | + + + + + + | Differentia | SLIDE SCANNED, AGREES | | EXTERNAL | | | l Comments | WITH AUTOMATED | | LAB | | | | RESULTS.Comment: Testing | | | | | | performed at [facility];[address] | | | | | | [address];[place] | | | | | | [address] | | | | + + + + + + | Na | 136Comment: Testing | 135 - 145 | EXTERNAL | | | | performed at [facility];888 | mmol/L | LAB | | | | [address];[place] | | | | | | [address] | | | | + + + + + + | K | 3.9Comment: SLT | 3.5 - 4.9 | EXTERNAL | | | | HEMOLYSISTesting | mmol/L | LAB | | | | performed at [facility];[address] | [address] | | [address];[place] | | | | | | [address] | | | | + + + + + + | Cl | 101Comment: Testing | 99 - 109 mmol/L | EXTERNAL | | | | performed at [facility];[address] | | LAB | | | | [address];[place] | | | | | | [address] | | | | + + + + + + | CO2 | 24Comment: Testing | 23 - 32 mmol/L | EXTERNAL | | | | performed at [facility];[address] | | LAB | | | | [address];[place] | | | | | | [address] | | | | + + + + + + | Anion Gap | 15Comment: Testing | 5 - 20 mmol/L | EXTERNAL | | | | performed at [facility];[address] | | LAB | | | | [address];[place] | | | | | | [address] | | | | + + + + + + | Glucose, | 255 (H)Comment: Testing | 65 - 99 mg/dL | EXTERNAL | | | Fasting | performed at [facility];[address] | | LAB | | | | [address];[place] | | | | | | [address] | | | | + + + + + + | BUN | 12Comment: Testing | 8 - 25 mg/dL | EXTERNAL | | | | performed at [facility];[address] | | LAB | | | | [address];[place] | | | | | | [address] | | | | + + + + + + | Creatinine | 0.97Comment: Testing | 0.50 - 1.00 | EXTERNAL | | | | performed at [facility];888 | mg/dL | LAB | | | | [address];[place] | | | | | | [address] | | | | + + + + + + | BUN/Creatin | 13Comment: Testing | | EXTERNAL | | | ine Ratio | performed at [facility];[address] | | LAB | | | | [address];[place] | | | | | | [address] | | | | + + + + + + | Calcium | 10.5Comment: Testing | 8.5 - 10.5 | EXTERNAL | | | | performed at [facility];888 | mg/dL | LAB | | | | [address];[place] | | | | | | [address] | | | | + + + + + + | Protein, | 8.8 (H)Comment: Testing | 6.3 - 8.2 g/dL | EXTERNAL | | | Total | performed at [facility];[address] | | LAB | | | | [address];[place] | | | | | | [address] | | | | + + + + + + | Albumin | 4.5Comment: Testing | 3.3 - 4.8 g/dL | EXTERNAL | | | | performed at [facility];[address] | | LAB | | | | [address];[place] | | | | | | [address] | | | | + + + + + + | Globulin | 4.4Comment: Testing | 1.3 - 4.9 g/dL | EXTERNAL | | | | performed at [facility];[address] | | LAB | | | | [address];[place] | | | | | | [address] | | | | + + + + + + | A/G Ratio | 1.0Comment: Testing | 1.0 - 2.4 | EXTERNAL | | | | performed at [facility];[address] | | LAB | | | | [address];[place] | | | | | | [address] | | | | + + + + + + | Bilirubin | 0.3Comment: Testing | 0.1 - 1.5 mg/dL | EXTERNAL | | | Total | performed at [facility];[address] | | LAB | | | | [address];[place] | | | | | | [address] | | | | + + + + + + | ALP, | 109Comment: Testing | 35 - 115 U/L | EXTERNAL | | | External | performed at [facility];[address] | | LAB | | | | [address];[place] | | | | | | [address] | | | | + + + + + + | AST | 14Comment: SLT | 10 - 45 U/L | EXTERNAL | | | | HEMOLYSISTesting | | LAB | | | | performed at [facility];[address] | | | | | | [address];[place] | | | | | | [address] | | | | + + + + + + | ALT | 20Comment: Testing | 10 - 65 U/L | EXTERNAL | | | | performed at [facility];[address] | | LAB | | | | [address];[place] | | | | | | [address] | | | | + + + [...] | | | | | | at [facility];[address];[place] [address] | | | | + + + + + + | CK, Total | 65Comment: Testing | 30 - 240 U/L | EXTERNAL | | | | performed at [facility];[address] | | LAB | | | | [address];[place] | | | | | | [address] | | | | + + + + + + | INR | 1.0Comment: REFERENCE | | EXTERNAL | | | | RANGE:0.9 - 1.2 | | LAB | | | | NON-ANTICOAGULATED2.0 | | | | | | - 3.0 ALL OTHER | | | | | | THERAPEUTIC | | | | | | INDICATIONS2.5 - 3.5 | | | | | | MECHANICAL HEART VALVES, | | | | | | RECURRENT OR SYSTEMIC | | | | | | EMBOLISMTesting | | | | | | performed at [facility];[address] | | [address] | | [address];[place] | | | | | | [address] | | | | + + + + + + | aPTT, | 30Comment: Testing | 23 - 32 seconds | EXTERNAL | | | Patient | performed at [facility];[address] | | LAB | | | | [address];[place] | | | | | | [address] | | | | + + + + + + | CK-MB | <1.0Comment: Testing | 0.5 - 3.6 ng/mL | EXTERNAL | | | | performed at [facility];[address] | | LAB | | | | [address];[place] | | | | | | [address] | | | | + + + + + + | CK-MB Index | UNABLE TO | | EXTERNAL | | | | CALCULATEComment: | | LAB | | | | Testing performed at | | | | | | [facility];[address];[place] [address] | | | | + + + + + + + + | Specimen | + + | | + + + +---------+ + + | Performing | Address | City/State/Zipcode | Phone Number | | Organization | | | | + +---------+ + + | EXTERNAL LAB | | | | + +---------+ + + Lipase (03/04/2016 9:31 PM PST) + + + + + + | Component | Value | Ref Range | Performed | Pathologist | | | | | At | Signature | + + + + + + | Lipase | 171Comment: Testing | 73 - 393 U/L | EXTERNAL | | | | performed at [facility];[address] | | LAB | | | | [address];[place], [place] | | | | | | [address] | | | | + + + + + + + + | Specimen | + + | | + + + +---------+ + + | Performing | Address | City/State/Zipcode | Phone Number | | Organization | | | | + +---------+ + + | EXTERNAL LAB | | | | + +---------+ + + ECG 12 lead (03/04/2016 9:29 PM PST) + + + + + + | Component | Value | Ref Range | Performed | Pathologist | | | | | At | Signature | + + + + + + | DIAGNOSIS: | Normal sinus rhythmRight | | EXTERNAL | | | | atrial | | LAB | | | | enlargementRightward | | | | | | axisCannot rule out | | | | | | Inferior infarct , age | | | | | | undeterminedAbnormal | | | | | | ECGWhen compared with | | | | | | ECG of 20-NOV-2015 | | | | | | 07:15,Minimal criteria | | | | | | for Inferior infarct are | | | | | | now PresentThis ECG | | | | | | contains Unconfirmed | | | | | | Interpretation | | | | | | Statements. See ED | | | | | | Record for Physician | | | | | | Interpretation. | | | | | | Confirmed by MUSE READ | | | | | | ONLY, -COMPUTER ([id number]), | | | | | | video editor Jhonny Bates | | | | | | (124) on 03/05/2016 | | | | | | 5:34:53 AM | | | | + + + + + + + + | Specimen | + + | | + + + + + | Narrative | Performed At | + + + | Historically converted procedure from [facility] environment | EXTERNAL LAB | + + + + +---------+ + + | Performing | Address | City/State/Zipcode | Phone Number | | Organization | | | | + +---------+ + + | EXTERNAL LAB | | | | + +---------+ + + documented in this encounter Visit Diagnoses + + | Diagnosis | + + | Intractable abdominal pain Abdominal pain, unspecified site | + + | Gastritis and duodenitis Unspecified gastritis and gastroduodenitis without mention | | of hemorrhage | + + | Gastroesophageal reflux disease without esophagitis Esophageal reflux | + + | Obesity, unspecified | + + | Smoking Tobacco use disorder | + + | Type 2 diabetes mellitus with hyperglycemia, without long-term current use of insulin | | (HCC) | + + | Hypokalemia Hypopotassemia | + + | Intractable vomiting with nausea, unspecified vomiting type | + + | Chest pain, unspecified type | + + | Leukocytosis, unspecified type | + + | Essential hypertension Unspecified essential hypertension | + + | Epigastric pain Abdominal pain, epigastric | + + | Dehydration | + + | Essential hypertension, benign | + + documented in this encounter
--- OUTSIDE RECORDS SUMMARY | ~2019-04-09 | XMS | Encounter Summary ---
Demographics + + + | Address | [address] | | | [place] [address] | + + + | Home Phone | | + + + | Preferred Language | Unknown | + + + | Marital Status | | + + + | Rastafari Affiliation | Unknown | + + + | Race | Unknown | + + + | Ethnic Group | Unknown | + + + Author + + + | Author | [facility] | | | and [place] | + + + | Organization | [facility] | | | and [...] Team Providers + +------+ + | Care Buckle Attacher Name | Role | Phone | + +------+ + PCP | Unavailable | + +------+ + Encounter Details +--------+ + + + + | Date | Type | Department | Care Team | Description | +--------+ + + + + | 04/04/ | Emergency | [facility] | Avtar Ellis MD | Elevated blood | | 2016 - | | MEDICAL CENTER | [address] | pressure; | | | | EMERGENCY CENTER | [place] [address] | Generalized | | 04/05/ | | [address] | [phone] | abdominal pain; | | 2015 | | [place], [place] | | Non-intractable | | | | [phone] | | vomiting with | | | | [phone] | | nausea, unspecified | | | [...] EXTERNAL | | | | performed at [facility];[address] | | LAB | | | | [address];[place] | | | | | | [address] | | | | + + + + + + | Clarity | CLEARComment: Testing | | EXTERNAL | | | | performed at [facility];[address] | | LAB | | | | [address];[place] | | | | | | [address] | | | | + + + + + + | Specific | 1.015Comment: Testing | 1.002 - 1.030 | EXTERNAL | | | Leola | performed at [facility];[address] | | LAB | | | | [address];[place] | | | | | | [address] | | | | + + + + + + | Leukocyte | NEGATIVEComment: Testing | | EXTERNAL | | | Esterase, | performed at [facility];[address] | | LAB | | | Urine | [address];[place] | | | | | | [address] | | | | + + + + + + | Nitrite, | NEGATIVEComment: Testing | | EXTERNAL | | | Urine | performed at [facility];[address] | | LAB | | | | [address];[place] | | | | | | [address] | | | | + + + + + + | Urobilinoge | NORMALComment: Testing | mg/dL | EXTERNAL | | | n, Urine | performed at [facility];[address] | | LAB | | | | [address];[place] | | | | | | [address] | | | | + + + + + + | Protein, | >500 (A)Comment: Testing | mg/dL | EXTERNAL | | | Urine | performed at [facility];[address] | | LAB | | | | [address];[place] | | | | | | [address] | | | | + + + + + + | pH, Urine | 7.0Comment: Testing | 5.0 - 8.0 | EXTERNAL | | | | performed at [facility];[address] | | LAB | | | | [address];[place] | | | | | | [address] | | | | + + + + + + | Blood, | SMALL (A)Comment: | | EXTERNAL | | | Urine | Testing performed at | | LAB | | | | [facility];[address];[place] [address] | | | | + + + + + + | Ketones | 20 (A)Comment: Testing | mg/dL | EXTERNAL | | | | performed at [facility];[address] | | LAB | | | | [address];[place] | | | | | | [address] | | | | + + + + + + | Bilirubin, | NEGATIVEComment: Testing | | EXTERNAL | | | Urine | performed at [facility];[address] | | LAB | | | | [address];[place] | | | | | | [address] | | | | + + + + + + | Glucose, | >500 (A)Comment: Testing | mg/dL | EXTERNAL | | | Urine | performed at [facility];[address] | | LAB | | | | [address];[place] | | | | | | [address] | | | | + + + + + + | WBC, UA | 3-5Comment: Testing | 0 - 5 /hpf | EXTERNAL | | | | performed at [facility];[address] | | LAB | | | | [address];[place] | | | | | | [address] | | | | + + + + + + | RBC, UA | 11-15Comment: Testing | 0 - 5 /hpf | EXTERNAL | | | | performed at [facility];[address] | | LAB | | | | [address];[place] | | | | | | [address] | | | | + + + + + + | Bacteria, | 1+ (A)Comment: Testing | | EXTERNAL | | | UA | performed at [facility];[address] | | LAB | | | | [address];[place] | | | | | | [address] | | | | + + + + + + | Epithelial | 16-25Comment: Testing | /lpf | EXTERNAL | | | Cells | performed at [facility];[address] | | LAB | | | | [address];[place] | | | | | | [address] | | | | + + + + + + | MUCUS UA | 1+Comment: Testing | | EXTERNAL | | | | performed at [facility];[address] | | LAB | | | | [address];[place] | | | | | | [address] | | | | + + + [...] EXTERNAL | | | | performed at [facility];888 | mmol/L | LAB | | | | [address];[place], [place] | | | | | | [address] | | | | + + + [...] K/uL | LAB | | | | [facility];[address];[place] [address] | | | | + + + + + + | RED CELL | 6.14 (H)Comment: Testing | 3.70 - 5.10 | EXTERNAL | | | COUNT | performed at [facility];[address] | M/uL | LAB | | | | [address];[place] | | | | | | [address] | | | | + + + + + + | Hgb | 18.7 (H)Comment: Testing | 11.3 - 15.5 | EXTERNAL | | | | performed at [facility];888 | g/dL | LAB | | | | [address];[place] | | | | | | [address] | | | | + + + + + + | Hematocrit, | 55.1 (H)Comment: Testing | 34.0 - 46.0 % | EXTERNAL | | | POC | performed at [facility];[address] | | LAB | | | | [address];[place] | | | | | | [address] | | | | + + + + + + | MCV | 89.8Comment: Testing | 80.0 - 100.0 fl | EXTERNAL | | | | performed at [facility];[address] | | LAB | | | | [address];[place] | | | | | | [address] | | | | + + + + + + | MCH | 30.5Comment: Testing | 27.0 - 34.0 pg | EXTERNAL | | | | performed at [facility];[address] | | LAB | | | | [address];[place] | | | | | | [address] | | | | + + + + + + | MCHC | 34.0Comment: Testing | 32.0 - 35.5 | EXTERNAL | | | | performed at [facility];888 | g/dL | LAB | | | | [address];[place] | | | | | | [address] | | | | + + + + + + | RDW-CV | 42.9Comment: Testing | 37 - 53 fl | EXTERNAL | | | | performed at [facility];[address] | | LAB | | | | [address];[place] | | | | | | [address] | | | | + + + + + + | Platelet | 364Comment: Testing | 150 - 400 K/uL | EXTERNAL | | | Count | performed at [facility];[address] | | LAB | | | Plasma | [address];[place] | | | | | | [address] | | | | + + + + + + | MPV | 8.1Comment: Testing | fl | EXTERNAL | | | | performed at [facility];[address] | | LAB | | | | [address];[place] | | | | | | [address] | | | | + + + + + + | Differentia | MANUALComment: Testing | | EXTERNAL | | | l Type | performed at [facility];[address] | | LAB | | | | [address];[place] | | | | | | [address] | | | | + + + + + + | Segmented | 81Comment: Testing | % | EXTERNAL | | | Neutrophils | performed at [facility];[address] | | LAB | | | Manual | [address];[place] | | | | | | [address] | | | | + + + + + + | % Bands | 1Comment: Testing | % | EXTERNAL | | | | performed at [facility];[address] | | LAB | | | | [address];[place] | | | | | | [address] | | | | + + + + + + | Lymphocytes | 12Comment: Testing | % | EXTERNAL | | | Manual | performed at [facility];[address] | | LAB | | | | [address];[place] | | | | | | [address] | | | | + + + + + + | Monocytes | 6Comment: Testing | % | EXTERNAL | | | Manual | performed at [facility];[address] | | LAB | | | | [address];[place] | | | | | | [address] | | | | + + + + + + | Absolute | 11.98 (H)Comment: | 1.90 - 7.40 | EXTERNAL | | | Neutrophils | Testing performed at | K/uL | LAB | | | | [facility];[address];[place] [address] | | | | + + + + + + | Bands | 0.15Comment: Testing | 0.00 - 0.20 | EXTERNAL | | | Manual | performed at [facility];[address] | K/uL | LAB | | | | [address];[place] | | | | | | [address] | | | | + + + + + + | Absolute | 1.78Comment: Testing | 1.00 - 3.90 | EXTERNAL | | | Lymphocytes | performed at [facility];[address] | K/uL | LAB | | | | [address];[place] | | | | | | [address] | | | | + + + + + + | Absolute | 0.89 (H)Comment: Testing | 0.00 - 0.80 | EXTERNAL | | | Monocytes | performed at [facility];[address] | K/uL | LAB | | | | [address];[place] | | | | | | [address] | | | | + + + + + + | RBC | RBC AND PLT MORPHOLOGY | | EXTERNAL | | | Morphology | APPEAR NORMALComment: | | LAB | | | | Testing performed at | | | | | | [facility];[address];[place] [address] | | | | + + + [...] EXTERNAL | | | | performed at [facility];[address] | | LAB | | | | [address];[place], [place] | | | | | | [address] | | | | + + + [...] EXTERNAL | | | | performed at [facility];888 | mmol/L | LAB | | | | [address];[place] | | | | | | [address] | | | | + + + + + + | K | 3.9Comment: MODERATE | 3.5 - 4.9 | EXTERNAL | | | | HEMOLYSISTesting | mmol/L | LAB | | | | performed at [facility];[address] | | | | | | [address];[place] | | | | | | [address] | | | | + + + + + + | Cl | 97 (L)Comment: Testing | 99 - 109 mmol/L | EXTERNAL | | | | performed at [facility];[address] | | LAB | | | | [address];[place] | | | | | | [address] | | | | + + + + + + | CO2 | 23Comment: Testing | 23 - 32 mmol/L | EXTERNAL | | | | performed at [facility];[address] | | LAB | | | | [address];[place] | | | | | | [address] | | | | + + + + + + | Anion Gap | 18Comment: Testing | 5 - 20 mmol/L | EXTERNAL | | | | performed at [facility];[address] | | LAB | | | | [address];[place] | | | | | | [address] | | | | + + + + + + | Glucose, | 231 (H)Comment: Testing | 65 - 99 mg/dL | EXTERNAL | | | Fasting | performed at [facility];[address] | | LAB | | | | [address];[place] | | | | | | [address] | | | | + + + + + + | BUN | 11Comment: Testing | 8 - 25 mg/dL | EXTERNAL | | | | performed at [facility];[address] | | LAB | | | | [address];[place] | | | | | | [address] | | | | + + + + + + | Creatinine | 0.88Comment: Testing | 0.50 - 1.00 | EXTERNAL | | | | performed at [facility];[address] | mg/dL | LAB | | | | [address];[place] | | | | | | [address] | | | | + + + + + + | BUN/Creatin | 12Comment: Testing | | EXTERNAL | | | ine Ratio | performed at [facility];[address] | | LAB | | | | [address];[place] | | | | | | [address] | | | | + + + + + + | Calcium | 10.0Comment: Testing | 8.5 - 10.5 | EXTERNAL | | | | performed at [facility];888 | mg/dL | LAB | | | | [address];[place] | | | | | | [address] | | | | + + + + + + | Protein, | 8.9 (H)Comment: Testing | 6.3 - 8.2 g/dL | EXTERNAL | | | Total | performed at [facility];[address] | | LAB | | | | [address];[place] | | | | | | [address] | | | | + + + + + + | Albumin | 4.3Comment: Testing | 3.3 - 4.8 g/dL | EXTERNAL | | | | performed at [facility];[address] | | LAB | | | | [address];[place] | | | | | | [address] | | | | + + + + + + | Globulin | 4.6Comment: Testing | 1.3 - 4.9 g/dL | EXTERNAL | | | | performed at [facility];[address] | | LAB | | | | [address];[place] | | | | | | [address] | | | | + + + + + + | A/G Ratio | 0.9 (L)Comment: Testing | 1.0 - 2.4 | EXTERNAL | | | | performed at [facility];[address] | | LAB | | | | [address];[place] | | | | | | [address] | | | | + + + + + + | Bilirubin | 0.7Comment: Testing | 0.1 - 1.5 mg/dL | EXTERNAL | | | Total | performed at [facility];[address] | | LAB | | | | [address];[place] | | | | | | [address] | | | | + + + + + + | ALP, | 121 (H)Comment: Testing | 35 - 115 U/L | EXTERNAL | | | External | performed at [facility];[address] | | LAB | | | | [address];[place] | | | | | | [address] | | | | + + + + + + | AST | 17Comment: MODERATE | 10 - 45 U/L | EXTERNAL | | | | HEMOLYSISTesting | | LAB | | | | performed at [facility];[address] | | | | | | [address];[place] | | | | | | [address] | | | | + + + + + + | ALT | 18Comment: Testing | 10 - 65 U/L | EXTERNAL | | | | performed at [facility];[address] | | LAB | | | | [address];[place] | | | | | | [address] | | | | + + + [...] | | | | | | at [facility];[address] [place] [address] | | | | | | Blvd;[place] [address] | | | | + + + [...] (500), | | | | | | newspaper editor ATUL TIPTON | | | | [...]
--- OUTSIDE RECORDS SUMMARY | ~2019-04-09 | XMS | Encounter Summary ---
Demographics + + + | Address | [address] | | | [place] [address] | + + + | Home Phone | | + + + | Preferred Language | Unknown | + + + | Marital Status | | + + + | Gnosticism Affiliation | Unknown | + + + | Race | Unknown | + + + | Ethnic Group | Unknown | + + + Author + + + | Author | [facility] [place] | | | and [place] | + + + | Organization | [facility] [place] | | | and [...] Team Providers + +------+ + | Care Formula Technician Name | Role | Phone | + +------+ + PCP | Unavailable | + +------+ + Encounter Details +--------+ + + + + | Date | Type | Department | Care Team | Description | +--------+ + + + + | 01/25/ | Hospital | [facility] | Dc Munoz | Excessive | | 2002 - | Encounter | [facility] [address] | Alex [phone] | menstruation | | | | [place] | (Fax) | | | 01/27/ | | [place] | | | | 2002 | | [address] | | | | | | [phone] | | | +--------+ + + + [...]
--- OUTSIDE RECORDS SUMMARY | ~2019-04-09 | XMS | Encounter Summary ---
Demographics + + + | Address | [address] | | | [place] [address] | + + + | Home Phone | | + + + | Preferred Language | Unknown | + + + | Marital Status | | + + + | Spiritism Affiliation | Unknown | + + + | Race | Unknown | + + + | Ethnic Group | Unknown | + + + Author + + + | Author | [facility] [place] | | | and [place] | + + + | Organization | [facility] [place] | | | and [...] Team Providers + +------+ + | Care Windshield Technician Name | Role | Phone | + +------+ + PCP | Unavailable | + +------+ + Encounter Details +--------+ + + + + | Date | Type | Department | Care Team | Description | +--------+ + + + + | 09/03/ | Hospital | [facility] | Conversion | | | 2016 | Encounter | [facility] | Transaction, | | | | | NUCLEAR MEDICINE | Provider Unknown | | | | | [address] | | | | | | [place] | (Fax) | | | | | [address] | | | | | | [phone] | | | +--------+ + + + [...]
--- OUTSIDE RECORDS SUMMARY | ~2019-04-09 | XMS | Encounter Summary ---
Demographics + + + | Address | [address] | | | [place] [address] | + + + | Home Phone | | + + + | Preferred Language | Unknown | + + + | Marital Status | | + + + | Mormon Affiliation | Unknown | + + + | Race | Unknown | + + + | Ethnic Group | Unknown | + + + Author + + + | Author | [facility] [place] | | | and [place] | + + + | Organization | [facility] [place] | | | and [place] [...] Team Providers + +------+ + | Care Claims Adjudicator Name | Role | Phone | + +------+ + PCP | Unavailable | + +------+ + Encounter Details +--------+ + + + + | Date | Type | Department | Care Team | Description | +--------+ + + + + | 05/28/ | Hospital | [facility] | Conversion | | | 2017 | Encounter | [facility] | Transaction, | | | | | CLINIC [address] | Provider Unknown | | | | | [place] | | | | | | [address] | (Fax) | | | | | [phone] | | | +--------+ + + + [...] EXTERNAL | | | | performed at [facility];888 | mmol/L | LAB | | | | [facility];[place], [place] | | | | | | [address] | | | | + + + + + + | K | 4.1Comment: Testing | 3.5 - 4.9 | EXTERNAL | | | | performed at [facility];888 | mmol/L | LAB | | | | [address];[place] | | | | | | [address] | | | | + + + + + + | Cl | 106Comment: Testing | 99 - 109 mmol/L | EXTERNAL | | | | performed at [facility];[address] | | LAB | | | | [address];[place] | | | | | | [address] | | | | + + + + + + | CO2 | 27Comment: Testing | 23 - 32 mmol/L | EXTERNAL | | | | performed at [facility];[address] | | LAB | | | | [address];[place] | | | | | | [address] | | | | + + + + + + | Anion Gap | 12Comment: Testing | 5 - 20 mmol/L | EXTERNAL | | | | performed at [facility];[address] | | LAB | | | | [address];[place] | | | | | | [address] | | | | + + + + + + | Glucose, | 152 (H)Comment: Testing | 65 - 99 mg/dL | EXTERNAL | | | Fasting | performed at [facility];[address] | | LAB | | | | [address];[place] | | | | | | [address] | | | | + + + + + + | BUN | 14Comment: Testing | 8 - 25 mg/dL | EXTERNAL | | | | performed at [facility];[address] | | LAB | | | | [address];[place] | | | | | | [address] | | | | + + + + + + | Creatinine | 0.79Comment: Testing | 0.50 - 1.00 | EXTERNAL | | | | performed at [facility];888 | mg/dL | LAB | | | | [address];[place] | | | | | | [address] | | | | + + + + + + | BUN/Creatin | 18Comment: Testing | | EXTERNAL | | | ine Ratio | performed at [facility];[address] | | LAB | | | | [address];[place] | | | | | | [address] | | | | + + + + + + | Calcium | 9.3Comment: Testing | 8.5 - 10.5 | EXTERNAL | | | | performed at [facility];888 | mg/dL | LAB | | | | [address];[place] | | | | | | [address] | | | | + + + [...] | | | | | | at [facility];[address] | | | | | | [address];[place] [address] | | | | + + + [...]
--- OUTSIDE RECORDS SUMMARY | ~2019-04-09 | XMS | Encounter Summary ---
Demographics + + + | Address | [address] | | | [place] [address] | + + + | Home Phone | | + + + | Preferred Language | Unknown | + + + | Marital Status | | + + + | Jain Affiliation | Unknown | + + + | Race | Unknown | + + + | Ethnic Group | Unknown | + + + Author + + + | Author | [facility] [place] | | | and [place] | + + + | Organization | [facility] [place] | | | and [...] Team Providers + +------+ + | Care Planning Management It Specialist Name | Role | Phone | + +------+ + PCP | Unavailable | + +------+ + Encounter Details +--------+ + + + + | Date | Type | Department | Care Team | Description | +--------+ + + + + | 02/21/ | Hospital | [facility] | Conversion | Other screening | | 2012 | Encounter | IM[facility]ING [facility] | Transaction, | mammogram | | | | [address] | Provider Unknown | | | | | [address] [place], [place] | [phone] | | | | | [address] | | | | | | [phone] | | | +--------+ + + + [...]
--- OUTSIDE RECORDS SUMMARY | ~2019-04-09 | XMS | Encounter Summary ---
Demographics + + + | Address | [address] | | | [place] [address] | + + + | Home Phone | | + + + | Preferred Language | Unknown | + + + | Marital Status | | + + + | Buddhist Affiliation | Unknown | + + + | Race | Unknown | + + + | Ethnic Group | Unknown | + + + Author + + + | Author | [facility] [place] | | | and [place] | + + + | Organization | [facility] [place] | | | and [place] | [...] Team Providers + +------+ + | Care Dip Dyer Name | Role | Phone | + +------+ + PCP | Unavailable | + +------+ + Encounter Details +--------+ + + + + | Date | Type | Department | Care Team | Description | +--------+ + + + + | 07/06/ | Hospital | [facility] | Tommy Voss E, | | | 2001 | Encounter | [facility] | [address] | | | | | [address] | [place] | | | | | [place] | [address] | | | | | [address] | | | | | | [phone] | | | +--------+ + + + [...]
--- OUTSIDE RECORDS SUMMARY | ~2019-04-09 | XMS | Encounter Summary ---
Demographics + + + | Address | [address] | | | [place] [address] | + + + | Home Phone | | + + + | Preferred Language | Unknown | + + + | Marital Status | | + + + | Oriental Orthodox Affiliation | Unknown | + + + | Race | Unknown | + + + | Ethnic Group | Unknown | + + + Author + + + | Author | [facility] | | | and [place] | + + + | Organization | [facility] | | | and [place] [...] Team Providers + +------+ + | Care Clinical Data Analyst Name | Role | Phone | + +------+ + PCP | Unavailable | + +------+ + Encounter Details +--------+ + + + + | Date | Type | Department | Care Team | Description | +--------+ + + + + | 11/14/ | Hospital | [facility] | [place], | Epigastric abdominal | | 2016 - | Encounter | [facility] | MD [address] | pain; Gastritis; | | | | CLINICAL DECISION | [address] | Essential | | 11/18/ | | [address] | [place] [address] | hypertension, | | 2016 | | [place] | [phone] | hypertension with | | | | [address] | | unspecified goal; | | | | [phone] | | Hyperglycemia | +--------+ + + + + Social [...] + + + | Blood Pressure | 120/59 | 11/19/2015 11:27 AM | | | | | PDT | | + + + + + | Pulse | 68 | 11/19/2015 11:27 AM | | | | | PDT | | + + + + + | Temperature | 37.1 C (98.8 F) | 11/19/2015 11:27 AM | | | | | PDT | | + + + + + | Respiratory Rate | 16 | 11/19/2015 11:27 AM | | | | | PDT | | + + + + + | Oxygen Saturation | - | - | | + + + + + | Inhaled Oxygen | - | - | | | Concentration | | | | + + + + + | Weight | 83.5 kg (184 lb 1.3 | 11/19/2015 11:27 AM | | | | oz) | PDT | | + + + + + | Height | 165.1 cm (5' 5") | 11/19/2015 11:27 AM | | | | | PDT | | + + + + + | Body Mass Index | 30.63 | 11/19/2015 11:27 AM | | | | | PDT | | + + + + + documented in this encounter Discharge Summaries Laila Pruitt MD - 11/19/2015 10:55 AM PDTFormatting of this note might be different fro m the original. Discharge Summaries by Laila Pruitt MD at 11/19/15 1606 Author: Laila Pruitt MD Service: (none) Author Type: Physician Filed: 11/19/15 5946 Date of Service: 11/19/151054 Status: Addendum Service Desk Team Lead: Laila Pruitt MD (Physician) Related Notes: Original Note by Laila Pruitt MD (Physician) filed at 11/19/15 5762 [facility] Service: Hospitalist Discharge Summary Date of Admission: 11/15/2015 Date of Discharge: 11/19/2015 Discharge Provider: Laila Pruitt MD Treatment Team: Admitting Provider: Garry Quesada MD Discharge Diagnoses: Principal Problem: Abdominal pain Active Problems: Essential hypertension, benign Other and unspecified hyperlipidemia DM (diabetes mellitus) (HCC) Nausea and vomiting CAD (coronary artery disease) Depression Leukocytosis, unspecified Smoking Resolved Problems: * No resolved hospital problems. * Procedures: Procedure(s): ESOPHAGOGASTRODUODENOSCOPY Significant Diagnostic Studies: Endoscopy: gastroscopy: EGD did not show any acute patholo gy. Biopsies were taken of the gastric antrum. HOSPITAL COURSE: Patient is a 60-year-old female with poorly controlled diabetes, who presented with th e sudden onset of abdominal pain associated with nausea and vomiting after eating pizza. Tiarra kocytosis was also noted. Symptoms slowly improved with time and being on IV Cipro and Flagy l. No obvious source of infection was noted though. Stool cultures have thus far been negati ve. Had a EGD done by Dr. Stauffer which did not show any acute pathology. Diet was slowly adva nced. Patient tolerated po well. Nausea improved. Would be on oral Cipro and Flagyl for a co uple of more days. PPI and Carafate was advised as per GI recommendations. No signs and symp toms of diabetic gastroparesis noted. Because of poorly controlled diabetes, metformin was c ontinued and Humalog 70 3015 units twice a day was advised on top of that. Needs outpatient close follow-up. Vital Signs: BP 126/58 mmHg | Pulse 64 | Temp(Src) 98.2 F (36.8 C) (Oral) | Resp 16 | Ht 1.651 m (5' 5") | Wt 83.5 kg (184 lb 1.4 oz) | BMI 30.63 kg/m2 | SpO2 95% | ? No Patient is awake, alert, oriented to time, place and person Skin: Warm and supple Neck: No JVD Chest: Normal vesicular breath sounds, good air entry bilaterally CVS: S1S2 audible, no murmurs heard Abdomen: Soft, mild to no abdominal tenderness present, normal bowel sounds, no organomegal y Extremities: No pedal edema, clubbing or cyanosis Neurologic examination: No focal sensory or motor deficits Back examination: No CVA tenderness, no spinal tenderness Disposition: Home Condition: Stable Discharge Instructions Referral to Diabetic Education Referral Priority: Routine Referral Type: Consultation Referral Reason: Specialty Services Required Number of Visits Requested: 12 Follow up: Braydon Lowry DO [address] [place] [address] Schedule an appointment as soon as possible for a visit [facility] [address] [place] [phone] If symptoms worsen Braydon Lowry DO [address] [place] [address] In 1 week Discharge took 35 minutes, to include final examination, discussion of admission, and prepa ration of prescriptions, instructions for on-going care, follow-up and documentation of disc harge summary. Medication List START taking these medications insulin aspart protamine-insulin aspart (70-30) 100 UNIT/ML injection QTY: 3 mL Refills: 1 Commonly known as: NOVOLOG 70/30 Inject 15 Units into the skin 2 (two) times daily before meals. pantoprazole 40 MG tablet QTY: 30 tablet Refills: 0 Commonly known as: PROTONIX Take 1 tablet by mouth every morning before breakfast. promethazine 25 MG tablet QTY: 15 tablet Refills: 0 Commonly known as: PHENERGAN Take 1 tablet by mouth every 6 (six) hours as needed for Nausea or Vomiting (or vomiting). sucralfate 1 GM/10ML suspension QTY: 420 mL Refills: 0 Commonly known as: CARAFATE Take 10 mLs by mouth every 6 (six) hours. CHANGE how you take these medications metFORMIN 500 MG tablet QTY: 60 tablet Refills: 1 Commonly known as: GLUCOPHAGE Take 2 tablets by mouth 2 (two) times daily with meals. What changed: - how much to take - when to take this CONTINUE taking these medications amLODIPine 10 MG tablet Refills: 0 Commonly known as: NORVASC clopidogrel 75 MG tablet Refills: 0 Commonly known as: PLAVIX estradiol 1 MG tablet Refills: 0 Commonly known as: ESTRACE HYDROcodone-acetaminophen 7.5-325 MG per tablet Refills: 0 Commonly known as: NORCO oxybutynin 5 MG tablet Refills: 0 Commonly known as: DITROPAN phentermine 37.5 MG tablet Refills: 0 Commonly known as: ADIPEX-P pravastatin 40 MG tablet Refills: 0 Commonly known as: PRAVACHOL ramipril 10 MG capsule Refills: 0 Commonly known as: ALTACE sertraline 50 MG tablet Refills: 0 Commonly known as: ZOLOFT traMADol 50 MG tablet Refills: 0 Commonly known as: ULTRAM vitamin D2 (ergocalciferol) 66598 UNITS capsule Refills: 0 Where to Get Your Medications 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 You may get the following medications from any pharmacy - insulin aspart protamine-insulin aspart (70-30) 100 UNIT/ML injection - metFORMIN 500 MG tablet - pantoprazole 40 MG tablet - promethazine 25 MG tablet - sucralfate 1 GM/10ML suspension documented in this e ncounter Progress Notes Conversion Transaction, Provider Unknown - 11/19/2015 12:08 PM PDTFormatting of this note m ight be different from the original. Nurse Progress Note by Lien Starkey RN at 11/19/151207 Author: Lien Starkey RN Service: (none) Author Type: Registered Nurse Filed: 11/19/15 1209 Date of Service: 11/19/151207 Status: Signed Service Desk Team Lead: Lien Starkey RN (Registered Nurse) Patient d/c instructions given with family present. All questions answered. Spouse to [facility] transportation. Lien Starkey RN [facility] Transaction, Provider Unknown - 11/19/2015 5:41 AM PDT Nurse Progress Note by Ximena Villela RN at 11/19/1541 Author: Ximena Villela RN Service: (none) Author Type: Registered Nurse Filed: 11/19/15 0549 Date of Service: 11/19/15540 Status: Signed Service Desk Team Lead: Ximena Villela RN (Registered Nurse) Pt's pain has been controlled with oral norco x 3. Continues to need antiemetics (Zofran gi carolina x 2 and IV phenergan x 2) . Pain in upper abdomen was relieved for the majority of the evening. Continue to monitor. [facility] Transaction, Provider Unknown - 11/18/2015 5:48 PM PDT Nurse Progress Note by Selma Shook RN at 11/18/151747 Author: Selma Shook RN Service: (none) Author Type: Registered Nurse Filed: 11/18/151755 Date of Service: 11/18/151747 Status: Signed Service Desk Team Lead: Selma Shook RN (Registered Nurse) Patient complains of acute abdominal pain, medicated with dilaudid and norco. Patient was h ypertensive after EGD and was medicated with prn labetalol and hydralazine. Patient is reque sting pain medication before availability. Potassium currently infusing for replacement of 3 .4. SBP currently 175. Selma Shook RN Laila Esquivel MD - 11/18/2015 11:05 AM PDTFormatting of this note might be different from the o riginal. Progress Notes by Laila Pruitt MD at 11/18/15 110 Author: Laila Pruitt MD Service: (none) Author Type: Physician Filed: 11/18/15 1129 Date of Service: 11/18/15 1105 Status: Addendum Service Desk Team Lead: Laila Pruitt MD (Physician) Related Notes: Original Note by Laila Pruitt MD (Physician) filed at 11/18/15 1126 [facility] Service: Hospitalist Progress Note Hospital Day: LOS: 1 day Procedure: Procedure(s) (LRB): ESOPHAGOGASTRODUODENOSCOPY (N/A) SUBJECTIVE Patient continues to grade her pain 8-9 out of 10 in spite of resting comfortably in bed. Mentions about some nausea but no vomiting. No blood in the stools, no blood in the vomitus . Pain is mostly lower abdominal. Plan is to do a EGD this morning. Leukocytosis slowly impr oving. Patient remains on IV fluids and on IV Cipro and Flagyl. Cultures thus far have been negative. Vitals are stable. Blood pressure is on the higher end. Was visited by diabetic ed ucator. Blood sugars slowly turning better. Is npo at present. Scheduled Medications amLODIPine 10 mg Oral Daily atorvastatin 10 mg Oral Nightly clopidogrel 75 mg Oral Daily famotidine 20 mg Oral BID heparin (porcine) 5000 unit/0.5mL 5,000 Units Subcutaneous Q8H insulin glargine 15 Units Subcutaneous Nightly insulin lispro (human) 0-14 Units Subcutaneous Q6H lisinopril 10 mg Oral Daily pantoprazole 40 mg Intravenous BIDQ pneumococcal 23-valent vaccine 0.5 mL Intramuscular Once Immunization sertraline 50 mg Oral Daily Continuous Infusions ciprofloxacin 400 mg (11/18/15 1037) dextrose famotidine 20 mg (11/17/15 2240) magnesium sulfate Or magnesium sulfate Or magnesium sulfate metronidazole Stopped (11/18/15 1034) potassium chloride Or potassium chloride 40 mEq (11/17/15 1813) Or potassium chloride sodium chloride (IV) 150 mL/hr at 11/18/15 0752 OBJECTIVE Vital Signs: BP 188/88 mmHg | Pulse 86 | Temp(Src) 98.5 F (36.9 C) (Oral) | Resp 14 | Ht 1.651 m (5' 5") | Wt 89.6 kg (197 lb 8.5 oz) | BMI 32.87 kg/m2 | SpO2 96% | ? No Patient is awake, alert, oriented to time, place and person, Skin: Warm and supple Neck: No JVD Chest: Normal vesicular breath sounds, good air entry bilaterally CVS: S1S2 audible, no murmurs heard Abdomen: Soft, non tender, normal bowel sounds, no organomegaly Extremities: No pedal edema, clubbing or cyanosis Neurologic examination: No focal sensory or motor deficits Back examination: No CVA tenderness, no spinal tenderness REVIEW OF SYSTEMS: Denies any fever, cough, dysuria, hematuria, vomiting, diarrhea. Mention s about some persistent nausea and lower abdominal pain. Never had a EGD or colonoscopy befo re. DATA CBC: Lab Results Component Value Date WBC 14.45* 11/18/2015 RBC 5.38* 11/18/2015 HGB 16.5* 11/18/2015 HCT 49.5* 11/18/2015 MCV 92.0 11/18/2015 MCH 30.6 11/18/2015 MCHC 33.2 11/18/2015 RDW 43.3 11/18/2015 PLT 345 11/18/2015 MPV 8.4 11/18/2015 DIFFTYPE AUTOMATED 11/18/2015 CMP: Lab Results Component Value Date NA 136 11/18/2015 K 3.4* 11/18/2015 CL 101 11/18/2015 CO2 24 11/18/2015 ANIONGAP 14 11/18/2015 GLUF 218* 11/18/2015 BUN 9 11/18/2015 CREATININE 0.6 11/18/2015 BCR 15 11/18/2015 CA 9.1 11/18/2015 CA 10.0 11/16/2015 PROT 7.5 11/17/2015 ALB 3.6 11/17/2015 GLOB 3.9 11/17/2015 BILITOT 0.3 11/17/2015 ALP 103 11/17/2015 AST 13 11/17/2015 ALT 28 11/17/2015 EGFR >60 11/18/2015 ASSESSMENT & PLAN Leukocytosis with sudden onset of nausea vomiting and lower abdominal pain after eating piz za: Leukocytosis and symptoms slowly improving. Patient is npo for now. She is also on IV fl uids. On IV Cipro and Flagyl. There is a small fluid collection around the spleen which is n ot suspected to be any abscesses. Continue with the supportive care with promethazine and Zo golden. Be watchful of IV narcotic use as patient is grading the pain 8-9 out of 10 in spite o f having a restful day in bed. Diabetes: Diverticular to get her consulted. Continue with the 15 units of Lantus once a da y along with pre-meal Humalog 3 times a day with meals. Continue with the statin, lisinopril . Patient had nosebleeds with aspirin. And stays on Plavix. Hypertension: Blood pressure is on the higher end. Cutdown on the IV fluids. Continue with IV hydralazine and IV labetalol prn. Continue with amlodipine and lisinopril. Hyperlipidemia: Continue with the statin and Plavix. Gastroesophageal reflux disease: Continue with IV Protonix. Deep vein thrombosis prophylaxis: SCDs Depression on Zoloft. Smoking: Advised strongly to give up smoking. Disposition: Plan is to continue the supportive treatment. Follow-up with the EGD report. Code Status: Full Code Laila Pruitt MD 11/18/2015 onversion Transacti on, Provider Unknown - 11/18/2015 10:24 AM PDTFormatting of this note might be different fro m the original. Nurse Progress Note by Caity Kenney RN at 11/18/15 1024 Author: Caity Kenney RN Service: (none) Author Type: Registered Nurse Filed: 11/18/15 1026 Date of Service: 11/18/15 1024 Status: Signed Service Desk Team Lead: Caity Kenney RN (Registered Nurse) Patient requesting pain medications for second time this am before availability. Right now patient rates pain 9/10 and describes as pulsating and states it comes and goes; upon walk ing into room her eyes were closed with smooth respirations and in no apparent distress. Ed ucated patient on pain rating scale with a 10 being the worst pain she has ever experienced. She then rated her pain 8/10 scale. Informed patient too early for pain meds but she agree s to try warm packs on abdomen. Caity Kenney RN [facility] Transaction, Provider Unknown - 11/18/2015 7:30 AM PDT Nurse Progress Note by Caity Kenney RN at 11/18/15 0730 Author: Caity Kenney RN Service: (none) Author Type: Registered Nurse Filed: 11/18/15 1027 Date of Service: 11/18/15 0730 Status: Signed Service Desk Team Lead: Caity Kenney RN (Registered Nurse) Noted that patient still has stool sample to be collected for shiga and fecal leukocytes. However, patient states she has not had a BM since arrival to hospital on night of 11/15/15. Caity Kenney RN [facility] Transaction, Provider Unknown - 11/18/2015 6:24 AM PDT Nurse Progress Note by Cordelia Stein RN at 11/18/15623 Author: Cordelia Stein RN Service: (none) Author Type: Registered Nurse Filed: 11/18/15626 Date of Service: 11/18/15623 Status: Signed Service Desk Team Lead: Cordelia Stein RN (Registered Nurse) Have kept pt. NPO this shift with mouth care and swabs for comfort. Pain med see MAR Q 3-4 hrs and zorfran and phenergan for neasua . No vomiting this shift. Amada Cotton i, MD - 11/17/2015 3:12 PM PDTFormatting of this note might be different from the or iginal. Progress Notes by Amada Jurado MD at 11/17/15 1512 Author: Amada Jurado MD Service: Hospitalist Author Type: Physician Filed: 11/17/15 1524 Date of Service: 11/17/151511 Status: Signed Service Desk Team Lead: Amada Jurado MD (Physician) [facility] Service: Hospitalist Progress Note Hospital Day: Post-Op Day: * No surgery found * SUBJECTIVE Patient summary: 60 with history of tobacco use, MT, hypertension who presented with nausea /vomitting abdominal pain since one day prior to admission. CT abdomen shows small fluid col lection around spleen but repeat reading by Dr. Chan shows questionable splenic infarct. Pa tient with persistent leukocytosis and increased hb. Events Overnight: Patient continues to have nausea. No BM since 2 days. Continues to have 7/10 abdominal pain. No fevers or chills. Scheduled Medications amLODIPine 10 mg Oral Daily atorvastatin 10 mg Oral Nightly clopidogrel 75 mg Oral Daily famotidine 20 mg Oral BID heparin (porcine) 5000 unit/0.5mL 5,000 Units Subcutaneous Q8H insulin glargine 15 Units Subcutaneous Nightly insulin lispro (human) 0-14 Units Subcutaneous Q6H lisinopril 10 mg Oral Daily sertraline 50 mg Oral Daily Continuous Infusions ciprofloxacin 400 mg (11/17/15 0956) dextrose famotidine magnesium sulfate Or magnesium sulfate Or magnesium sulfate metronidazole 500 mg (11/17/15 0955) potassium chloride Or potassium chloride Or potassium chloride sodium chloride (IV) 150 mL/hr at 11/17/15 1402 PRN Medications acetaminophen OR acetaminophen, dextrose, dextrose, dextrose, glucagon, glucagon, hydrA LAZINE, HYDROcodone-acetaminophen, HYDROmorphone OR HYDROmorphone, labetalol, magnesium sulfate OR magnesium sulfate OR magnesium sulfate, ondansetron OR ondansetron, p olyethylene glycol, potassium chloride OR potassium chloride OR potassium chloride, promethazine, zolpidem OBJECTIVE Vital Signs: BP 182/77 mmHg | Pulse 88 | Temp(Src) 98.3 F (36.8 C) (Oral) | Resp 18 | Ht 1.651 m (5' 5") | Wt 89.6 kg (197 lb 8.5 oz) | BMI 32.87 kg/m2 | SpO2 97% | ? No Gen: AOX3. NAD HEENT: NCAT CV: RRR. S1S2 normal. no murmer, rubs, or gallops. No JVD Chest: CTA b/l Abd: S, epigastric tenderness, lower abdominal tenderness. BS+, no gaurding or ridigity Ext: No edema. 2+ DP Neuro: Motor/sensations intact. 2+ DTRs DATA Recent Labs Lab 11/17/15 0603 11/16/15 0538 11/15/15 2335 WBC 19.11* 20.88* 15.45* HGB 16.7* 16.6* 16.9* HCT 51.7* 50.0* 50.3* PLT 313 328 342 NEUTOPHILPCT 80.72 -- 77.97 MONOPCT 6.42 -- 4.68 Recent Labs Lab 11/17/15 0603 11/17/15 0048 11/16/15 1735 11/16/15 0538 11/15/15 2335 NA 138 -- -- 135 132* K 3.7 4.0 3.7 3.7 3.7 CL 104 -- -- 97* 97* CO2 22* -- -- 23 28 BUN 13 -- -- 14 15 CREATININE 0.7 -- -- 0.8 0.92 PROT 7.5 -- -- -- 8.8* BILITOT 0.3 -- -- -- 0.3 ALT 28 -- -- -- 34 AST 13 -- -- -- 18 Phosphorus: Lab Results Component Value Date PHOS 3.4 11/16/2015 Invalid input(s): LABALBU Recent Labs Lab 11/16/15 0538 MG 2.0 No results for input(s): AMYLASE in the last 168 hours. No results for input(s): PHART, PO2ART, PGM5YRN, S9SKXGZG, BEART in the last 168 hours. No results for input(s): APTT, INR, PTT in the last 168 hours. No results for input(s): TSH, T3FREE, FREET4 in the last 168 hours. No results for input(s): CKTOTAL, TROPONINI, TROPONINT, CKMBINDEX in the last 168 hours. DATA CBC: Lab Results Component Value Date WBC 19.11* 11/17/2015 RBC 5.58* 11/17/2015 HGB 16.7* 11/17/2015 HCT 51.7* 11/17/2015 MCV 92.7 11/17/2015 MCH 30.0 11/17/2015 MCHC 32.3 11/17/2015 RDW 43.8 11/17/2015 PLT 313 11/17/2015 MPV 8.6 11/17/2015 DIFFTYPE AUTOMATED 11/17/2015 CMP: Lab Results Component Value Date NA 138 11/17/2015 K 3.7 11/17/2015 CL 104 11/17/2015 CO2 22* 11/17/2015 ANIONGAP 16 11/17/2015 GLUF 276* 11/17/2015 BUN 13 11/17/2015 CREATININE 0.7 11/17/2015 BCR 19 11/17/2015 CA 9.5 11/17/2015 CA 10.0 11/16/2015 PROT 7.5 11/17/2015 ALB 3.6 11/17/2015 GLOB 3.9 11/17/2015 BILITOT 0.3 11/17/2015 ALP 103 11/17/2015 AST 13 11/17/2015 ALT 28 11/17/2015 EGFR >60 11/17/2015 BMP: Lab Results Component Value Date NA 138 11/17/2015 K 3.7 11/17/2015 CL 104 11/17/2015 CO2 22* 11/17/2015 ANIONGAP 16 11/17/2015 GLUF 276* 11/17/2015 BUN 13 11/17/2015 CREATININE 0.7 11/17/2015 BCR 19 11/17/2015 CA 9.5 11/17/2015 CA 10.0 11/16/2015 EGFR >60 11/17/2015 Ct Abdomen & Pelvis With Contrast 11/16/2015 1. Fatty liver. 2. Colonic diverticula without evidence of diverticulitis. 3. A ppendix appears normal. 4. Spleen shows a small subcapsular fluid collection measuring 2.5 x 0.9 cm. RADIA Electronically signed by John Corado MD on Nov 16 2015 1:24AM Referring Provider Line: [phone] ID: [id number] PROBLEM LIST Principal Problem: Abdominal pain Active Problems: Essential hypertension, benign Other and unspecified hyperlipidemia DM (diabetes mellitus) (HCC) Nausea and vomiting ASSESSMENT & PLAN Abdominal pain with nausea/vomitting: most likely infectious gastroenteritis vs. Gastritis vs. PUD. She does have leukocytosis with bandemia and persistent leukocytosis hence I feel t hat antibiotics are indicated as this may be bacterial. continue cipro and flagyl. Blood cul tures pending. She has had no BM since yesterday. Ordered stool leukocytosis and stool cultu re but no BM. Continue IV fluids, antiemetics, and pain control. CT abdomen showed small sub capsular fluid collection, I reviewed results with Dr. Chan with radiology. He does not bel ieve this to be fluid collection but questionable very small splenic infarction. He recommen ds repeat US/CT scan in a month for evaluation. Cause is unknown. She has no know history of atrial fibrillation but will monitor her on telemetry. Ordered CLD and advance as tolerated . Ordered IV protonix. Dr. Stauffer with GI consulted. Accelerated hypertension: 2/2 pain and not taking PO medications due to nausea. Continue n orvasc and lisinopril. Will continue IV labetolol prn for SBP >180. HLD: continue statin. 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 Continue plavix, statin, ?not on BB. DM type II with hyperglycemia: on metformin at home. a1c 10. Increase lantus to 15 units an d continue high dose SSI. Monitor BS. Ordered telehealth nurse educator. Hypercalcemia: resolved.could be 2/2 dehydration, PTH and vitamin D normal. Elevated hb: could be due to hemoconcentration but she did have elevated white count and in creased hb at that time too. This could be hemoconcentration, per recs of Dr. Stauffer, have in creased IV fluids and monitor. Will r/o polythemia vera as she does have questionable spleni c infarct or seconday polycythemia from tobacco use Ordered ABG, erythropoietin level, iron studies, and peripheral smear. Tobacco use: counseled on cessation. Disposition: change to inpatient Code Status: Full Code DVT PPx: heparin SQ Amada Jurado MD 11/17/2015 onversion Brenda cornejo Provider Unknown - 11/17/2015 10:40 AM PDT Case Management by Becky Cardenas RN at 11/17/15 1040 Author: Becky Cardenas RN Service: (none) Author Type: Registered Nurse Filed: 11/17/15 104 Date of Service: 11/17/15 104 Status: Signed Service Desk Team Lead: Becky Cardenas RN (Registered Nurse) 11/17/15 1033 Discharge Planning Evaluation Admitting Diagnosis intractable abdominal pain Readmission No Living Arrangements (James - [phone]) Support Systems Spouse/significant other;Children;Family members Type of Residence Other (Comment);Private residence House type Mobile home Independent with ADL's Yes Independent with Mobility Yes Home Care Services No 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 Anticipated Discharge Plan Post Acute Care Needs None at this time Plan communicated to patient/family Yes Resources Financial concerns No Transportation issues No Patient/Family concerns No Prescription Plan Yes Name of Pharmacy [facility] [address] Anticipated Disposition Facility Type Home Medicare Important Message (CATIE) Not applicable [facility] Provider Unknown - 11/17/2015 10:36 AM PDT Case Management by Becky Cardenas RN at 11/17/151035 Author: Becky Cardenas RN Service: (none) Author Type: Registered Nurse Filed: 11/17/151038 Date of Service: 11/17/151035 Status: Signed Service Desk Team Lead: Becky Cardenas RN (Registered Nurse) Met with: patient and James [phone] and discussed discharge planning, Pt is a 60 y.o., female admitted with c/o intractable abdominal pain. 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 Independent with all adl's and mobility. Patient's PCP is: BRAYDON LOWRY Patient's insurance:[employer] Coverage concerns: none Medication coverage/concerns: y/n [facility] Bedside Delivery: [facility] resources utilized / needed: none Assistance in transportation: family Identification of any specific education / training: none Barriers to Discharge / Alternative housing needed: none Anticipated DCP: home with Becky Saenzs[facility]roland on[facility] glory Transaction, Provider Unknown - 11/16/2015 6:55 PM PDT Nurse Progress Note by Ester Merchant RN at 11/16/151854 Author: Ester Merchant RN Service: (none) Author Type: Registered Nurse Filed: 11/16/151855 Date of Service: 11/16/151854 Status: Signed Service Desk Team Lead: Ester Merchant RN (Registered Nurse) 162/67 Patient asleep at bedside, left her undisturbed. onver glory Transaction, Provider Unknown - 11/16/2015 3:37 PM PDT Nurse Progress Note by Ester Merchant RN at 11/16/151536 Author: Ester Merchant RN Service: (none) Author Type: Registered Nurse Filed: 11/16/151537 Date of Service: 11/16/151536 Status: Signed Service Desk Team Lead: Ester Merchant RN (Registered Nurse) PRN hydralazine for HTN onver glory Transaction, Provider Unknown - 11/16/2015 12:09 PM PDT Nurse Progress Note by Ester Merchant RN at 11/16/15 1209 Author: Ester Merchant RN Service: (none) Author Type: Registered Nurse Filed: 11/16/15 1210 Date of Service: 11/16/15 1209 Status: Signed Service Desk Team Lead: Ester Merchant RN (Registered Nurse) PRN labetolol for hypertension On monitor Q30 minutes onver glory Transaction, Provider Unknown - 11/16/2015 10:32 AM PDT Nurse Progress Note by Ester Merchant RN at 11/16/15 1032 Author: Ester Merchant RN Service: (none) Author Type: Registered Nurse Filed: 11/16/15 1033 Date of Service: 11/16/15 1032 Status: Signed Service Desk Team Lead: Ester Merchant RN (Registered Nurse) Po Rx for c/o abdominal pain Tele on Amada Cotton i, MD - 11/16/2015 9:47 AM PDTFormatting of this note might be different from the or iginal. Progress Notes by Amada Jurado MD at 11/16/15 0947 Author: Amada Jurado MD Service: Hospitalist Author Type: Physician Filed: 11/16/15 1014 Date of Service: 11/16/15 0947 Status: Addendum Service Desk Team Lead: Amada Jurado MD (Physician) Related Notes: Original Note by Amada Jurado MD (Physician) filed at 11/16/15 1012 [facility] Service: Hospitalist Progress Note Hospital Day: Post-Op Day: * No surgery found * SUBJECTIVE Events Overnight: Patient continues to have nausea. No BM since yesterday evening. Abdomin al pain controlled with IV dilaudid. No fevers or chills. Scheduled Medications [START ON 11/17/2015] amLODIPine 10 mg Oral Daily atorvastatin 10 mg Oral Nightly clopidogrel 75 mg Oral Daily famotidine 20 mg Oral BID heparin (porcine) 5000 unit/0.5mL 5,000 Units Subcutaneous Q8H insulin lispro (human) 0-3 Units Subcutaneous Nightly insulin lispro (human) 0-6 Units Subcutaneous TID AC lisinopril 10 mg Oral Daily sertraline 50 mg Oral Daily Continuous Infusions ciprofloxacin 400 mg (11/16/15 0839) dextrose famotidine magnesium sulfate Or magnesium sulfate Or magnesium sulfate metronidazole potassium chloride Or potassium chloride Or potassium chloride sodium chloride (IV) 110 mL/hr at 11/16/15 0759 PRN Medications acetaminophen OR acetaminophen, dextrose, dextrose, dextrose, glucagon, glucagon, HYDRO codone-acetaminophen, HYDROmorphone OR HYDROmorphone, labetalol, magnesium sulfate OR* * magnesium sulfate OR magnesium sulfate, ondansetron OR ondansetron, polyethylene g lycol, potassium chloride OR potassium chloride OR potassium chloride, zolpidem OBJECTIVE Vital Signs: BP 194/79 mmHg | Pulse 101 | Temp(Src) 98.5 F (36.9 C) (Oral) | Resp 18 | Ht 1.651 m (5 ' 5") | Wt 89.6 kg (197 lb 8.5 oz) | BMI 32.87 kg/m2 | SpO2 96% | ? No Gen: AOX3. NAD HEENT: NCAT CV: RRR. S1S2 normal. no murmer, rubs, or gallops. No JVD Chest: CTA b/l Abd: S, epigastric tenderness, lower abdominal tenderness. BS+, no gaurding or ridigity Ext: No edema. 2+ DP Neuro: Motor/sensations intact. 2+ DTRs DATA Recent Labs Lab 11/16/15 0538 11/15/15 2335 WBC 20.88* 15.45* HGB 16.6* 16.9* HCT 50.0* 50.3* PLT 328 342 NEUTOPHILPCT -- 77.97 MONOPCT -- 4.68 Recent Labs Lab 11/16/15 0538 11/15/15 2335 NA 135 132* K 3.7 3.7 CL 97* 97* CO2 23 28 BUN 14 15 CREATININE 0.8 0.92 PROT -- 8.8* BILITOT -- 0.3 ALT -- 34 AST -- 18 Phosphorus: Lab Results Component Value Date PHOS 3.4 11/16/2015 Invalid input(s): LABALBU Recent Labs Lab 11/16/15 0538 MG 2.0 No results for input(s): AMYLASE in the last 168 hours. No results for input(s): PHART, PO2ART, BBW2QFB, Y8JJKGIJ, BEART in the last 168 hours. No results for input(s): APTT, INR, PTT in the last 168 hours. No results for input(s): TSH, T3FREE, FREET4 in the last 168 hours. No results for input(s): CKTOTAL, TROPONINI, TROPONINT, CKMBINDEX in the last 168 hours. DATA CBC: Lab Results Component Value Date WBC 20.88* 11/16/2015 RBC 5.47* 11/16/2015 HGB 16.6* 11/16/2015 HCT 50.0* 11/16/2015 MCV 91.4 11/16/2015 MCH 30.3 11/16/2015 MCHC 33.1 11/16/2015 RDW 42.9 11/16/2015 PLT 328 11/16/2015 MPV 8.8 11/16/2015 DIFFTYPE MANUAL 11/16/2015 CMP: Lab Results Component Value Date NA 135 11/16/2015 K 3.7 11/16/2015 CL 97* 11/16/2015 CO2 23 11/16/2015 ANIONGAP 19 11/16/2015 GLUF 373* 11/16/2015 BUN 14 11/16/2015 CREATININE 0.8 11/16/2015 BCR 18 11/16/2015 CA 10.7* 11/16/2015 PROT 8.8* 11/15/2015 ALB 4.3 11/15/2015 GLOB 4.5 11/15/2015 BILITOT 0.3 11/15/2015 ALP 159* 11/15/2015 AST 18 11/15/2015 ALT 34 11/15/2015 EGFR >60 11/16/2015 BMP: Lab Results Component Value Date NA 135 11/16/2015 K 3.7 11/16/2015 CL 97* 11/16/2015 CO2 23 11/16/2015 ANIONGAP 19 11/16/2015 GLUF 373* 11/16/2015 BUN 14 11/16/2015 CREATININE 0.8 11/16/2015 BCR 18 11/16/2015 CA 10.7* 11/16/2015 EGFR >60 11/16/2015 Ct Abdomen & Pelvis With Contrast 11/16/2015 1. Fatty liver. 2. Colonic diverticula without evidence of diverticulitis. 3. A ppendix appears normal. 4. Spleen shows a small subcapsular fluid collection measuring 2.5 x 0.9 cm. RADIA Electronically signed by John Corado MD on Nov 16 2015 1:24AM Referring Provider Line: [phone] ID: [id number] PROBLEM LIST Principal Problem: Abdominal pain Active Problems: Essential hypertension, benign Other and unspecified hyperlipidemia DM (diabetes mellitus) (HCC) Nausea and vomiting ASSESSMENT & PLAN Abdominal pain with nausea/vomitting: most likely infectious gastroenteritis vs. Gastritis vs. PUD. She does have leukocytosis with bandemia hence I feel that antibiotics are indicate d as this may be bacterial. Will start cipro and flagyl. Blood cultures pending. She has had no BM since yesterday. Ordered stool leukocytosis and stool culture. Continue IV fluids, an tiemetics, and pain control. CT abdomen showed small subcapsular fluid collection, I reviewe d results with Dr. Chan with radiology. He does not believe this to be fluid collection but possibility of very small splenic infarction. He recommends repeat US/CT scan in a month fo r evaluation. Cause is unknown. She has no know history of atrial fibrillation but will daina tor her on telemetry. Ordered CLD and advance as tolerated. Ordered IV protonix. Accelerated hypertension: 2/2 pain and not taking PO medications due to nausea. She took me dications this AM with improvement. Will continue IV labetolol prn for SBP >180. HLD: continue statin. 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 Continue plavix, statin, ?not on BB. DM type II with hyperglycemia: on metformin at home. a1c 10. Will start Lantus and increase to high dose SSI. Monitor BS. Ordered telehealth nurse educator. Hypercalcemia: could be 2/2 dehydration but will order PTH and vitamin D. Disposition: observation Code Status: Full Code DVT PPx: heparin SQ Amada Jurado MD 11/16/2015 onversion Transactio n, Provider Unknown - 11/16/2015 8:03 AM PDT Nurse Progress Note by Ester Merchant RN at 11/16/15802 Author: Ester Merchant RN Service: (none) Author Type: Registered Nurse Filed: 11/16/15803 Date of Service: 11/16/15802 Status: Signed Service Desk Team Lead: Ester Merchant RN (Registered Nurse) Electrolyte protocol: Mg 2, no replacement necessary. K+ 3.7 messaged pharmacy to send 20 mEq IV onver glory Transaction, Provider Unknown - 11/16/2015 5:45 AM PDT Progress Notes by Susannah Tristan RPH at 11/16/15544 Author: Susannah Tristan RPH Service: (none) Author Type: Pharmacist Filed: 11/16/1545 Date of Service: 11/16/15544 Status: Signed Service Desk Team Lead: Susannah Tristan RPH (Pharmacist) Renal Dosing Monitoring: Whit Hurt 60 y.o. female Pharmacy dosing for renal function per Dr. Quesada SCr 0.92, est. CrCl = 72 ml/min Plan per protocol: Medications dosed appropriately for current renal function. Pharmacy will continue monitoring patient for appropriate dosing per renal function. 11/16/2015 5:45 AM Pharmacist: Susannah Tristan docume nted in this encounter Plan of Treatment Not on filedocumented as of this encounter Procedures + +--------+ + + + | Procedure Name | Priori | Date/Time | Associated Diagnosis | Comments | | | ty | | | | + +--------+ + + + | POC GLUCOSE | Routin | 11/19/2015 | | Results for this | | | e | 11:28 AM | | procedure are in the | | | | PDT | | results section. | + +--------+ + + + | EXTERNAL LAB: CBC | Routin | 11/19/2015 | | Results for this | | | e | 9:43 AM | | procedure are in the | | | | PDT | | results section. | + +--------+ + + + | BASIC METABOLIC | Routin | 11/19/2015 | | Results for this | | PANEL | e | 9:43 AM | | procedure are in the | | | | PDT | | results section. | + +--------+ + + + | POTASSIUM | Routin | 11/19/2015 | | Results for this | | | e | 5:57 AM | | procedure are in the | | | | PDT | | results section. | + +--------+ + + + | PHOSPHORUS | Routin | 11/19/2015 | | Results for this | | | e | 5:57 AM | | procedure are in the | | | | PDT | | results section. | + +--------+ + + + | MAGNESIUM | Routin | 11/19/2015 | | Results for this | | | e | 5:57 AM | | procedure are in the | | | | PDT | | results section. | + +--------+ + + + | POC GLUCOSE | Routin | 11/19/2015 | | Results for this | | | e | 5:03 AM | | procedure are in the | | | | PDT | | results section. | + +--------+ + + + | TISSUE REQUEST FOR | Routin | 11/19/2015 | | Results for this | | PATHOLOGY (NON-ORD) | e | 12:00 AM | | procedure are in the | | | | PDT | | results section. | + +--------+ + + + | POC GLUCOSE | Routin | 11/18/2015 | | Results for this | | | e | 10:07 PM | | procedure are in the | | | | PDT | | results section. | + +--------+ + + + | POTASSIUM | Routin | 11/18/2015 | | Results for this | | | e | 6:59 PM | | procedure are in the | | | | PDT | | results section. | + +--------+ + + + | POC GLUCOSE | Routin | 11/18/2015 | | Results for this | | | e | 4:17 PM | | procedure are in the | | | | PDT | | results section. | + +--------+ + + + | POC GLUCOSE | Routin | 11/18/2015 | | Results for this | | | e | 11:45 AM | | procedure are in the | | | | PDT | | results section. | + +--------+ + + + | POC GLUCOSE | Routin | 11/18/2015 | | Results for this | | | e | 5:51 AM | | procedure are in the | | | | PDT | | results section. | + +--------+ + + + | EXTERNAL LAB: CBC | Routin | 11/18/2015 | | Results for this | | | e | 4:50 AM | | procedure are in the | | | | PDT | | results section. | + +--------+ + + + | MAGNESIUM | Routin | 11/18/2015 | | Results for this | | | e | 4:50 AM | | procedure are in the | | | | PDT | | results section. | + +--------+ + + + | BASIC METABOLIC | Routin | 11/18/2015 | | Results for this | | PANEL | e | 4:50 AM | | procedure are in the | | | | PDT | | results section. | + +--------+ + + + | POC GLUCOSE | Routin | 11/17/2015 | | Results for this | | | e | 10:33 PM | | procedure are in the | | | | PDT | | results section. | + +--------+ + + + | POTASSIUM | Routin | 11/17/2015 | | Results for this | | | e | 10:29 PM | | procedure are in the | | | | PDT | | results section. | + +--------+ + + + | IRON AND IRON | Routin | 11/17/2015 | | Results for this | | BINDING CAPACITY | e | 3:54 PM | | procedure are in the | | | | PDT | | results section. | + +--------+ + + + | POTASSIUM | Routin | 11/17/2015 | | Results for this | | | e | 3:54 PM | | procedure are in the | | | | PDT | | results section. | + +--------+ + + + | MAGNESIUM | Routin | 11/17/2015 | | Results for this | | | e | 3:54 PM | | procedure are in the | | | | PDT | | results section. | + +--------+ + + + | FERRITIN | Routin | 11/17/2015 | | Results for this | | | e | 3:54 PM | | procedure are in the | | | | PDT | | results section. | + +--------+ + + + | POC GLUCOSE | Routin | 11/17/2015 | | Results for this | | | e | 3:53 PM | | procedure are in the | | | | PDT | | results section. | + +--------+ + + + | POC GLUCOSE | Routin | 11/17/2015 | | Results for this | | | e | 11:31 AM | | procedure are in the | | | | PDT | | results section. | + +--------+ + + + | POC GLUCOSE | Routin | 11/17/2015 | | Results for this | | | e | 10:32 AM | | procedure are in the | | | | PDT | | results section. | + +--------+ + + + | EXTERNAL LAB: CBC | Routin | 11/17/2015 | | Results for this | | | e | 6:03 AM | | procedure are in the | | | | PDT | | results section. | + +--------+ + + + | ERYTHROPOIETIN | Routin | 11/17/2015 | | Results for this | | | e | 6:03 AM | | procedure are in the | | | | PDT | | results section. | + +--------+ + + + | HEMOGLOBIN A1C | Routin | 11/17/2015 | | Results for this | | | e | 6:03 AM | | procedure are in the | | | | PDT | | results section. | + +--------+ + + + | BILIRUBIN, DIRECT | Routin | 11/17/2015 | | Results for this | | | e | 6:03 AM | | procedure are in the | | | | PDT | | results section. | + +--------+ + + + | COMPREHENSIVE | Routin | 11/17/2015 | | Results for this | | METABOLIC PANEL | e | 6:03 AM | | procedure are in the | | | | PDT | | results section. | + +--------+ + + + | POC GLUCOSE | Routin | 11/17/2015 | | Results for this | | | e | 4:31 AM | | procedure are in the | | | | PDT | | results section. | + +--------+ + + + | POTASSIUM | Routin | 11/17/2015 | | Results for this | | | e | 12:48 AM | | procedure are in the | | | | PDT | | results section. | + +--------+ + + + | POC GLUCOSE | Routin | 11/16/2015 | | Results for this | | | e | 9:31 PM | | procedure are in the | | | | PDT | | results section. | + +--------+ + + + | POC GLUCOSE | Routin | 11/16/2015 | | Results for this | | | e | 9:11 PM | | procedure are in the | | | | PDT | | results section. | + +--------+ + + + | POTASSIUM | Routin | 11/16/2015 | | Results for this | | | e | 5:35 PM | | procedure are in the | | | | PDT | | results section. | + +--------+ + + + | POC GLUCOSE | Routin | 11/16/2015 | | Results for this | | | e | 4:43 PM | | procedure are in the | | | | PDT | | results section. | + +--------+ + + + | POC GLUCOSE | Routin | 11/16/2015 | | Results for this | | | e | 11:55 AM | | procedure are in the | | | | PDT | | results section. | + +--------+ + + + | VITAMIN D, | Routin | 11/16/2015 | | Results for this | | DEFICIENCY SCREEN | e | 10:02 AM | | procedure are in the | | (25-HYDROXY) | | PDT | | results section. | + +--------+ + + + | PARATHYROID HORMONE, | Routin | 11/16/2015 | | Results for this | | INTACT AND CALCIUM | e | 10:02 AM | | procedure are in the | | | | PDT | | results section. | + +--------+ + + + | POC GLUCOSE | Routin | 11/16/2015 | | Results for this | | | e | 6:10 AM | | procedure are in the | | | | PDT | | results section. | + +--------+ + + + | CULTURE, BLOOD, 2ND | Timed | 11/16/2015 | | Results for this | | SPECIMEN (NON-ORD) | | 5:55 AM | | procedure are in the | | | | PDT | | results section. | + +--------+ + + + | CULTURE, BLOOD | Timed | 11/16/2015 | | Results for this | | | | 5:54 AM | | procedure are in the | | | | PDT | | results section. | + +--------+ + + + | EXTERNAL LAB: CBC | Routin | 11/16/2015 | | Results for this | | | e | 5:38 AM | | procedure are in the | | | | PDT | | results section. | + +--------+ + + + | PROCALCITONIN, SERUM | Routin | 11/16/2015 | | Results for this | | | e | 5:38 AM | | procedure are in the | | | | PDT | | results section. | + +--------+ + + + | PHOSPHORUS | Routin | 11/16/2015 | | Results for this | | | e | 5:38 AM | | procedure are in the | | | | PDT | | results section. | + +--------+ + + + | MAGNESIUM | Routin | 11/16/2015 | | Results for this | | | e | 5:38 AM | | procedure are in the | | | | PDT | | results section. | + +--------+ + + + | HEMOGLOBIN A1C | Routin | 11/16/2015 | | Results for this | | | e | 5:38 AM | | procedure are in the | | | | PDT | | results section. | + +--------+ + + + | BASIC METABOLIC | Routin | 11/16/2015 | | Results for this | | PANEL | e | 5:38 AM | | procedure are in the | | | | PDT | | results section. | + +--------+ + + + | POC GLUCOSE | Routin | 11/16/2015 | | Results for this | | | e | 1:59 AM | | procedure are in the | | | | PDT | | results section. | + +--------+ + + + | ECG 12 LEAD | Routin | 11/16/2015 | | Results for this | | | e | 1:05 AM | | procedure are in the | | | | PDT | | results section. | + +--------+ + + + | URINALYSIS, REFLEX | Routin | 11/16/2015 | | Results for this | | MICROSCOPIC AND/OR | e | 12:54 AM | | procedure are in the | | CULTURE | | PDT | | results section. | + +--------+ + + + | CT ABDOMEN PELVIS W | Routin | 11/16/2015 | | Results for this | | CONTRAST | e | 12:50 AM | | procedure are in the | | | | PDT | | results section. | + +--------+ + + + | EXTERNAL LAB: CBC | Routin | 11/15/2015 | | Results for this | | | e | 11:35 PM | | procedure are in the | | | | PDT | | results section. | + +--------+ + + + | C-REACTIVE PROTEIN | Routin | 11/15/2015 | | Results for this | | | e | 11:35 PM | | procedure are in the | | | | PDT | | results section. | + +--------+ + + + | LIPASE | Routin | 11/15/2015 | | Results for this | | | e | 11:35 PM | | procedure are in the | | | | PDT | | results section. | + +--------+ + + + | LACTIC ACID | Routin | 11/15/2015 | | Results for this | | | e | 11:35 PM | | procedure are in the | | | | PDT | | results section. | + +--------+ + + + | COMPREHENSIVE | Routin | 11/15/2015 | | Results for this | | METABOLIC PANEL | e | 11:35 PM | | procedure are in the | | | | PDT | | results section. | + +--------+ + + + documented in this encounter Results POC Glucose (11/19/2015 11:28 AM PDT) + + + + + + | Component | Value | Ref Range | Performed | Pathologist | | | | | At | Signature | + + + + + + | Glucose, | 146 (H)Comment: Testing | 65 - 99 mg/dL | EXTERNAL | | | Fingerstick | performed at [facility] [place] | | [place] | | | | [address];[place], [place] | | | | | | [address] | | | | + + + + + + + + | Specimen | + + | | + + + +---------+ + + | Performing | Address | City/State/Zipcode | Phone Number | | Organization | | | | + +---------+ + + | EXTERNAL LAB | | | | + +---------+ + + External Lab: [facility] (11/19/2015 9:43 AM PDT) + + + + + + | Component | Value | Ref Range | Performed | Pathologist | | | | | At | Signature | + + + + + + | WBC | 8.65Comment: Testing | 3.80 - 11.00 | EXTERNAL | | | | performed at [facility] [place] | K/uL | LAB | | | | [address];[place] | | | | | | [address] | | | | + + + + + + | RED CELL | 4.66Comment: Testing | 3.70 - 5.10 | EXTERNAL | | | COUNT | performed at [facility] [place] | M/uL | LAB | | | | [address];[place] | | | | | | [address] | | | | + + + + + + | Hgb | 14.6Comment: Testing | 11.3 - 15.5 | EXTERNAL | | | | performed at [facility] [place] | g/dL | LAB | | | | [address];[place] | | | | | | [address] | | | | + + + + + + | Hematocrit, | 42.6Comment: Testing | 34.0 - 46.0 % | EXTERNAL | | | POC | performed at [facility] [place] | | LAB | | | | [address];[place] | | | | | | [address] | | | | + + + + + + | MCV | 91.5Comment: Testing | 80.0 - 100.0 fl | EXTERNAL | | | | performed at [facility] [place] | | LAB | | | | [address];[place] | | | | | | [address] | | | | + + + + + + | MCH | 31.4Comment: Testing | 27.0 - 34.0 pg | EXTERNAL | | | | performed at [facility] [place] | | LAB | | | | [address];[place] | | | | | | [address] | | | | + + + + + + | MCHC | 34.3Comment: Testing | 32.0 - 35.5 | EXTERNAL | | | | performed at [facility] [place] | g/dL | LAB | | | | [address];[place] | | | | | | [address] | | | | + + + + + + | RDW-CV | 43.3Comment: Testing | 37 - 53 fl | EXTERNAL | | | | performed at [facility] [place] | | LAB | | | | [address];[place] | | | | | | [address] | | | | + + + + + + | Platelet | 283Comment: Testing | 150 - 400 K/uL | EXTERNAL | | | Count | performed at [facility] [place] | | LAB | | | Plasma | [address];[place] | | | | | | [address] | | | | + + + + + + | MPV | 8.0Comment: Testing | fl | EXTERNAL | | | | performed at [facility] [place] | | LAB | | | | [address];[place] | | | | | | [address] | | | | + + + + + + | Differentia | AUTOMATEDComment: | | EXTERNAL | | | l Type | Testing performed at | | LAB | | | | [facility] [place];[place] [address] | | | | + + + + + + | % Segmented | 59.96Comment: Testing | % | EXTERNAL | | | | performed at [facility] [place] | | LAB | | | Neutrophils | [address];[place] | | | | | | [address] | | | | + + + + + + | % | 28.13Comment: Testing | % | EXTERNAL | | | Lymphocytes | performed at [facility] [place] | | LAB | | | | [address];[place] | | | | | | [address] | | | | + + + + + + | % Monocytes | 11.00Comment: Testing | % | EXTERNAL | | | | performed at [facility] [place] | | LAB | | | | [address];[place] | | | | | | [address] | | | | + + + + + + | % | 0.23Comment: Testing | % | EXTERNAL | | | Eosinophils | performed at [facility] [place] | | LAB | | | | [address];[place] | | | | | | [address] | | | | + + + + + + | % Basophils | 0.68Comment: Testing | % | EXTERNAL | | | | performed at [facility] [place] | | LAB | | | | [address];[place] | | | | | | [address] | | | | + + + + + + | Absolute | 5.18Comment: Testing | 1.90 - 7.40 | EXTERNAL | | | Segmented | performed at [facility] [place] | K/uL | LAB | | | Neutrophils | [address];[place] | | | | | | [address] | | | | + + + + + + | Absolute | 2.43Comment: Testing | 1.00 - 3.90 | EXTERNAL | | | Lymphocytes | performed at [facility] [place] | K/uL | LAB | | | | [address];[place] | | | | | | [address] | | | | + + + + + + | Absolute | 0.95 (H)Comment: Testing | 0.00 - 0.80 | EXTERNAL | | | Monocytes | performed at [facility] [place] | K/uL | LAB | | | | [address];[place] | | | | | | [address] | | | | + + + + + + | Absolute | 0.02Comment: Testing | 0.00 - 0.50 | EXTERNAL | | | Eosinophils | performed at [facility] [place] | K/uL | LAB | | | | [address];[place] | | | | | | [address] | | | | + + + + + + | Absolute | 0.06Comment: Testing | 0.00 - 0.10 | EXTERNAL | | | Basophils | performed at [facility] [place] | K/uL | LAB | | | | [address];[place] | | | | | | [address] | | | | + + + + + + + + | Specimen | + + | Blood specimen | | (specimen) | + + + +---------+ + + | Performing | Address | City/State/Zipcode | Phone Number | | Organization | | | | + +---------+ + + | EXTERNAL LAB | | | | + +---------+ + + Basic Metabolic Panel (11/19/2015 9:43 AM PDT) + + + + + + | Component | Value | Ref Range | Performed | Pathologist | | | | | At | Signature | + + + + + + | Na | 136Comment: Testing | 135 - 145 | EXTERNAL | | | | performed at [facility] [place] | mmol/L | LAB | | | | [address];[place], [place] | | | | | | [address] | | | | + + + + + + | K | 3.2 (L)Comment: Testing | 3.5 - 4.9 | EXTERNAL | | | | performed at [facility] [place] | mmol/L | LAB | | | | [address];[place] | | | | | | [address] | | | | + + + + + + | Cl | 104Comment: Testing | 99 - 109 mmol/L | EXTERNAL | | | | performed at [facility] [place] | | LAB | | | | [address];[place] | | | | | | [address] | | | | + + + + + + | CO2 | 26Comment: Testing | 23 - 32 mmol/L | EXTERNAL | | | | performed at [facility] [place] | | LAB | | | | [address];[place] | | | | | | [address] | | | | + + + + + + | Anion Gap | 9Comment: Testing | 5 - 20 mmol/L | EXTERNAL | | | | performed at [facility] [place] | | LAB | | | | [address];[place] | | | | | | [address] | | | | + + + + + + | Glucose, | 168 (H)Comment: Testing | 65 - 99 mg/dL | EXTERNAL | | | Fasting | performed at [facility] [place] | | LAB | | | | [address];[place] | | | | | | [address] | | | | + + + + + + | BUN | 16Comment: Testing | 8 - 25 mg/dL | EXTERNAL | | | | performed at [facility] [place] | | LAB | | | | [address];[place] | | | | | | [address] | | | | + + + + + + | Creatinine | 0.87Comment: Testing | 0.50 - 1.00 | EXTERNAL | | | | performed at [facility] [place] | mg/dL | LAB | | | | [address];[place] | | | | | | [address] | | | | + + + + + + | BUN/Creatin | 18Comment: Testing | | EXTERNAL | | | ine Ratio | performed at [facility] [place] | | LAB | | | | [address];[place] | | | | | | [address] | | | | + + + + + + | Calcium | 9.1Comment: Testing | 8.5 - 10.5 | EXTERNAL | | | | performed at [facility] [place] | mg/dL | LAB | | | | [address];[place] | | | | | | [address] | | | | + + + [...] | | | | | | at [facility] [place] | | | | | | [address];[place] [address] | | | | + + + + + + + + | Specimen | + + | Blood specimen | | (specimen) | + + + +---------+ + + | Performing | Address | City/State/Zipcode | Phone Number | | Organization | | | | + +---------+ + + | EXTERNAL LAB | | | | + +---------+ + + Potassium (11/19/2015 5:57 AM PDT) + + + + + + | [...] [address], | | | | | | [place] [address] | | | | + + + + + + + + | Specimen | + + | Blood specimen | | (specimen) | + + + +---------+ + + | Performing | Address | City/State/Zipcode | Phone Number | | Organization | | | | + +---------+ + + | EXTERNAL LAB | | | | + +---------+ + + Phosphorus (11/19/2015 5:57 AM PDT) + + + + + + | Component | Value | Ref Range | Performed | Pathologist | | | | | At | Signature | + + + + + + | PHOSPHORUS | 3.2Comment: Testing | 2.3 - 4.8 mg/dL | EXTERNAL | | | | performed at [facility], [address] | | LAB | | | | [address], | | | | | | [place] [address] | | | | + + + + + + + + | Specimen | + + | Blood specimen | | (specimen) | + + + +---------+ + + | Performing | Address | City/State/Zipcode | Phone Number | | Organization | | | | + +---------+ + + | EXTERNAL LAB | | | | + +---------+ + + Magnesium (11/19/2015 5:57 AM PDT) + + + + + + | Component | Value | Ref Range | Performed | Pathologist | | | | | At | Signature | + + + + + + | Magnesium | 2.0Comment: Testing | 1.7 - 2.4 mg/dL | EXTERNAL | | | | performed at [facility], [address] | | LAB | | | | [address], | | | | | | [place] [address] | | | | + + + + + + + + | Specimen | + + | Blood specimen | | (specimen) | + + + +---------+ + + | Performing | Address | City/State/Zipcode | Phone Number | | Organization | | | | + +---------+ + + | EXTERNAL LAB | | | | + +---------+ + + POC Glucose (11/19/2015 5:03 AM PDT) + + + + + + | Component | Value | Ref Range | Performed | Pathologist | | | | | At | Signature | + + + + + + | Glucose, | 162 (H)Comment: Testing | 65 - 99 mg/dL | EXTERNAL | | | Fingerstick | performed at [facility] [place] | | LAB | | | | [address];[place] | | | | | | [address] | | | | + + + + + + + + | Specimen | + + | | + + + +---------+ + + | Performing | Address | City/State/Zipcode | Phone Number | | Organization | | | | + +---------+ + + | EXTERNAL LAB | | | | + +---------+ + + Tissue Request For Pathology (11/19/2015 12:00 AM PDT) + + | Specimen | + + | Soft tissue sample | | (specimen) | + + + + + | Narrative | Performed At | + + + | SPECIMEN(S): A GASTRIC- BIOPSY SPECIMEN SOURCE: A. GASTRIC- | EXTERNAL LAB | | BIOPSY CLINICAL HISTORY: 11/18/2015 at 1458 H. Abdominal pain, | | | nausea and vomiting. EGD normal. MICROSCOPIC DESCRIPTION: | | | Histologic sections of all submitted blocks are examined by light | | | microscopy. These findings, together with the gross examination, | | | support the pathologic diagnosis. FINAL PATHOLOGIC DIAGNOSIS: | | | Stomach, biopsies: - Chronic gastritis with mild inflammatory | | | activity. - No Helicobacter pylori bacteria are identified by | | | Warthin-Starry stain. AMB:emb:C2NR GROSS DESCRIPTION: The | | | specimen is received in formalin labeled with the patient's name and | | | designated "gastric" and consists of four 0.3 cm fragments all in A1. | | | ja:julio cesar PERFORMING LABORATORY: Professional interpretation and | | | technical preparation was performed by [facility] | | | [address] [address] | | | (Staff Interpreter: Vinh Leal M.D.; [facility]#: [id number]). | | | Diagnostician: Harleen Jeffers MD Pathologist Electronically Signed | | | 11/20/2015 | | + + + + +---------+ + + | Performing | Address | City/State/Zipcode | Phone Number | | Organization | | | | + +---------+ + + | EXTERNAL LAB | | | | + +---------+ + + POC Glucose (11/18/2015 10:07 PM PDT) + + + + + + | Component | Value | Ref Range | Performed | Pathologist | | | | | At | Signature | + + + + + + | Glucose, | 233 (H)Comment: Testing | 65 - 99 mg/dL | EXTERNAL | | | Fingerstick | performed at [facility] | | LAB | | | | [address];[place] | | | | | | [address] | | | | + + + + + + + + | Specimen | + + | | + + + +---------+ + + | Performing | Address | City/State/Zipcode | Phone Number | | Organization | | | | + +---------+ + + | EXTERNAL LAB | | | | + +---------+ + + Potassium (11/18/2015 6:59 PM PDT) + + + + + + | Component | Value | Ref Range | Performed | Pathologist | | | | | At | Signature | + + + + + + | K | 3.5Comment: Testing | 3.5 - 4.9 | EXTERNAL | | | | performed at [facility] | mmol/L | LAB | | | | [address];[place] | | | | | | [address] | | | | + + + + + + + + | Specimen | + + | Blood specimen | | (specimen) | + + + +---------+ + + | Performing | Address | City/State/Zipcode | Phone Number | | Organization | | | | + +---------+ + + | EXTERNAL LAB | | | | + +---------+ + + POC Glucose (11/18/2015 4:17 PM PDT) + + + + + + | Component | Value | Ref Range | Performed | Pathologist | | | | | At | Signature | + + + + + + | Glucose, | 192 (H)Comment: Testing | 65 - 99 mg/dL | EXTERNAL | | | Fingerstick | performed at [facility] [place] | | LAB | | | | [address];[place] | | | | | | [address] | | | | + + + + + + + + | Specimen | + + | | + + + +---------+ + + | Performing | Address | City/State/Zipcode | Phone Number | | Organization | | | | + +---------+ + + | EXTERNAL LAB | | | | + +---------+ + + POC Glucose (11/18/2015 11:45 AM PDT) + + + + + + | Component | Value | Ref Range | Performed | Pathologist | | | | | At | Signature | + + + + + + | Glucose, | 198 (H)Comment: Testing | 65 - 99 mg/dL | EXTERNAL | | | Fingerstick | performed at [facility] | | LAB | | | | [address];[place], [place] | | | | | | [address] | | | | + + + + + + + + | Specimen | + + | | + + + +---------+ + + | Performing | Address | City/State/Zipcode | Phone Number | | Organization | | | | + +---------+ + + | EXTERNAL LAB | | | | + +---------+ + + POC Glucose (11/18/2015 5:51 AM PDT) + + + + + + | Component | Value | Ref Range | Performed | Pathologist | | | | | At | Signature | + + + + + + | Glucose, | 180 (H)Comment: Testing | 65 - 99 mg/dL | EXTERNAL | | | Fingerstick | performed at [facility] | | LAB | | | | [address];[place], [place] | | | | | | [address] | | | | + + + + + + + + | Specimen | + + | | + + + +---------+ + + | Performing | Address | City/State/Zipcode | Phone Number | | Organization | | | | + +---------+ + + | EXTERNAL LAB | | | | + +---------+ + + External Lab: CBC (11/18/2015 4:50 AM PDT) + + + + + + | Component | Value | Ref Range | Performed | Pathologist | | | | | At | Signature | + + + + + + | WBC | 14.45 (H)Comment: | 3.80 - 11.00 | EXTERNAL | | | | Testing performed at | K/uL | LAB | | | | [facility], [address] [facility] [place] | | | | | | [place] | | | | | | [address] | | | | + + + + + + | RED CELL | 5.38 (H)Comment: Testing | 3.70 - 5.10 | EXTERNAL | | | COUNT | performed at [facility], [address] | M/[address] | LAB | | | | [address], | | | | | | [place] [address] | | | | + + + + + + | Hgb | 16.5 (H)Comment: Testing | 11.3 - 15.5 | EXTERNAL | | | | performed at [facility], [address] | g/dL | LAB | | | | [address], | | | | | | [place] [address] | | | | + + + + + + | Hematocrit, | 49.5 (H)Comment: Testing | 34.0 - 46.0 % | EXTERNAL | | | POC | performed at [facility], [address] | | LAB | | | | [address], | | | | | | [place] [address] | | | | + + + + + + | MCV | 92.0Comment: Testing | 80.0 - 100.0 fl | EXTERNAL | | | | performed at [facility], [address] | | LAB | | | [address], | | | | | | [place] [address] | | | | + + + + + + | MCH | 30.6Comment: Testing | 27.0 - 34.0 pg | EXTERNAL | | | | performed at [facility], [address] | | LAB | | | [address], | | | | | | [place] [address] | | | | + + + + + + | MCHC | 33.2Comment: Testing | 32.0 - 35.5 | EXTERNAL | | | | performed at [facility], [address] | g/dL | LAB | | | | [address], | | | | | | [place] [address] | | | | + + + + + + | RDW-CV | 43.3Comment: Testing | 37 - 53 fl | EXTERNAL | | | | performed at [facility], [address] | | LAB | | | | [address], | | | | | | [place] [address] | | | | + + + + + + | Platelet | 345Comment: Testing | 150 - 400 K/uL | EXTERNAL | | | Count | performed at [facility], [address] | | LAB | | | Plasma | [address], | | | | | | [place] [address] | | | | + + + + + + | MPV | 8.4Comment: Testing | fl | EXTERNAL | | | | performed at [facility], [address] | | LAB | | | | [address], | | | | | | [place] [address] | | | | + + + + + + | Differentia | AUTOMATEDComment: | | EXTERNAL | | | l Type | Testing performed at | | LAB | | | | [facility], [address] | | | | | | [place] | | | | | | [address] | | | | + + + + + + | % Segmented | 72.32Comment: Testing | % | EXTERNAL | | | | performed at [facility], [address] | | LAB | | | Neutrophils | [address], | | | | | | [place] [address] | | | | + + + + + + | % | 20.25Comment: Testing | % | EXTERNAL | | | Lymphocytes | performed at [facility], [address] | | LAB | | | | [address], | | | | | | [place] [address] | | | | + + + + + + | % Monocytes | 7.05Comment: Testing | % | EXTERNAL | | | | performed at [facility], [address] | | LAB | | | | [address], | | | | | | [place] [address] | | | | + + + + + + | % | 0.01Comment: Testing | % | EXTERNAL | | | Eosinophils | performed at [facility], [address] | | LAB | | | | [address], | | | | | | [place] [address] | | | | + + + + + + | % Basophils | 0.37Comment: Testing | % | EXTERNAL | | | | performed at [facility], [address] | | LAB | | | | [address], | | | | | | [place] [address] | | | | + + + + + + | Absolute | 10.45 (H)Comment: | 1.90 - 7.40 | EXTERNAL | | | Segmented | Testing performed at | K/uL | LAB | | | Neutrophils | [facility], [address] | | | | | | [place] | | | | | | [address] | | | | + + + + + + | Absolute | 2.93Comment: Testing | 1.00 - 3.90 | EXTERNAL | | | Lymphocytes | performed at [facility], [address] | K/uL | LAB | | | | [address], | | | | | | [place] [address] | | | | + + + + + + | Absolute | 1.02 (H)Comment: Testing | 0.00 - 0.80 | EXTERNAL | | | Monocytes | performed at [facility], [address] | K[address]L | LAB | | | | [address], | | | | | | [place] [address] | | | | + + + + + + | Absolute | 0.00Comment: Testing | 0.00 - 0.50 | EXTERNAL | | | Eosinophils | performed at [facility], [address] | K/uL | LAB | | | | [address], | | | | | | [place] [address] | | | | + + + + + + | Absolute | 0.05Comment: Testing | 0.00 - 0.10 | EXTERNAL | | | Basophils | performed at [facility], [address] | K/uL | LAB | | | | [address], | | | | | | [place] [address] | | | | + + + + + + + + | Specimen | + + | Blood specimen | | (specimen) | + + + +---------+ + + | Performing | Address | City/State/Zipcode | Phone Number | | Organization | | | | + +---------+ + + | EXTERNAL LAB | | | | + +---------+ + + Magnesium (11/18/2015 4:50 AM PDT) + + + + + + | [...] | | | | | performed at [facility], [address] | | | | | | [address], | | | | | | [place] [address] | | | | + + + + + + + + | Specimen | + + | Blood specimen | | (specimen) | + + + +---------+ + + | Performing | Address | City/State/Zipcode | Phone Number | | Organization | | | | + +---------+ + + | EXTERNAL LAB | | | | + +---------+ + + Basic Metabolic Panel (11/18/2015 4:50 AM PDT) + + + + + + | [...] | | | | | [place] [address] | | | | + + + + + + | K | 3.4 (L)Comment: SPECIMEN | 3.5 - 4.9 | EXTERNAL | | | | SLIGHTLY | mmol/L | LAB | | | | HEMOLYZEDTesting | | | | | | performed at [facility], [address] | | | | | | [address], | | | | | | [place] [address] | | | | + + + + + + | Cl | 101Comment: Testing | 99 - 109 mmol/L | EXTERNAL | | | | performed at [facility], [address] | | LAB | | | | [address], | | | | | | [place] [address] | | | | + + + + + + | CO2 | 24Comment: Testing | 23 - 32 mmol/L | EXTERNAL | | | | performed at [facility], [address] | | LAB | | | | [address], | | | | | | [place] [address] | | | | + + + + + + | Anion Gap | 14Comment: Testing | 5 - 20 mmol/L | EXTERNAL | | | | performed at [facility], [address] | | LAB | | | | [address], | | | | | | [place] [address] | | | | + + + + + + | Glucose, | 218 (H)Comment: SPECIMEN | 65 - 99 mg/dL | EXTERNAL | | | Fasting | SLIGHTLY | | LAB | | | | HEMOLYZEDTesting | | | | | | performed at [facility], [address] | | | | | | [address], | | | | | | [place] [address] | | | | + + + + + + | BUN | 9Comment: Testing | 8 - 25 mg/dL | EXTERNAL | | | | performed at [facility], [address] | | LAB | | | | [address], | | | | | | [place] [address] | | | | + + + + + + | Creatinine | 0.6Comment: SPECIMEN | 0.50 - 1.00 | EXTERNAL | | | | SLIGHTLY | mg/dL | LAB | | | | HEMOLYZEDTesting | | | | | | performed at [facility], [address] | | | | | | [address], | | | | | | [place] [address] | | | | + + + + + + | BUN/Creatin | 15Comment: Testing | | EXTERNAL | | | ine Ratio | performed at [facility], [address] | | LAB | | | | [address], | | | | | | [place] [address] | | | | + + + + + + | Calcium | 9.1Comment: Testing | 8.5 - 10.5 | EXTERNAL | | | | performed at [facility], [address] | mg/dL | LAB | | | | [address], | | | | | | [place] [address] | | | | + + + [...] | | | | | | at [facility], [address] | | | | | | [facility], | | | | | | [place] [address] | | | | + + + + + + + + | Specimen | + + | Blood specimen | | (specimen) | + + + +---------+ + + | Performing | Address | City/State/Zipcode | Phone Number | | Organization | | | | + +---------+ + + | EXTERNAL LAB | | | | + +---------+ + + POC Glucose (11/17/2015 10:33 PM PDT) + + + + + + | Component | Value | Ref Range | Performed | Pathologist | | | | | At | Signature | + + + + + + | Glucose, | 211 (H)Comment: Testing | 65 - 99 mg/dL | EXTERNAL | | | Fingerstick | performed at [facility] | | LAB | | | | [address];[place] | | | | | | [address] | | | | + + + + + + + + | Specimen | + + | | + + + +---------+ + + | Performing | Address | City/State/Zipcode | Phone Number | | Organization | | | | + +---------+ + + | EXTERNAL LAB | | | | + +---------+ + + Potassium (11/17/2015 10:29 PM PDT) + + + + + + | Component | Value | Ref Range | Performed | Pathologist | | | | | At | Signature | + + + + + + | K | 3.8Comment: SLT | 3.5 - 4.9 | EXTERNAL | | | | HEMOLYSISTesting | mmol/L | LAB | | | | performed at [facility] | | | | | | [address];[place] | | | | | | [address] | | | | + + + + + + + + | Specimen | + + | Blood specimen | | (specimen) | + + + +---------+ + + | Performing | Address | City/State/Zipcode | Phone Number | | Organization | | | | + +---------+ + + | EXTERNAL LAB | | | | + +---------+ + + Iron and Iron Binding Capacity (11/17/2015 3:54 PM PDT) + + + + + + | Component | Value | Ref Range | Performed | Pathologist | | | | | At | Signature | + + + + + + | Iron | 94Comment: Testing | 30 - 180 ug/dL | EXTERNAL | | | | performed at [facility], [address] | | LAB | | | | [address], | | | | | | [place] [address] | | | | + + + + + + | TIBC | 271Comment: Testing | 260 - 490 ug/dL | EXTERNAL | | | | performed at [facility], [address] | | LAB | | | | [address], | | | | | | [place] [address] | | | | + + + + + + | Iron | 35Comment: Testing | 15 - 50 % | EXTERNAL | | | Saturation | performed at [facility], [address] | | LAB | | | | [address], | | | | | | [place] [address] | | | | + + + + + + + + | Specimen | + + | Blood specimen | | (specimen) | + + + +---------+ + + | Performing | Address | City/State/Zipcode | Phone Number | | Organization | | | | + +---------+ + + | EXTERNAL LAB | | | | + +---------+ + + Potassium (11/17/2015 3:54 PM PDT) + + + + + + | Component | Value | Ref Range | Performed | Pathologist | | | | | At | Signature | + + + + + + | K | 3.4 (L)Comment: SPECIMEN | 3.5 - 4.9 | EXTERNAL | | | | SLIGHTLY | mmol/L | LAB | | | | HEMOLYZEDTesting | | | | | | performed at [facility] | | | | | | [address];[place], [place] | | | | | | [address] | | | | + + + + + + + + | Specimen | + + | Blood specimen | | (specimen) | + + + +---------+ + + | Performing | Address | City/State/Zipcode | Phone Number | | Organization | | | | + +---------+ + + | EXTERNAL LAB | | | | + +---------+ + + Magnesium (11/17/2015 3:54 PM PDT) + + + + + + | Component | Value | Ref Range | Performed | Pathologist | | | | | At | Signature | + + + + + + | Magnesium | 2.0Comment: SPECIMEN | 1.7 - 2.4 mg/dL | EXTERNAL | | | | SLIGHTLY | | LAB | | | | HEMOLYZEDTesting | | | | | | performed at [facility] | | | | | | [facility];[place], [place] | | | | | | [address] | | | | + + + + + + + + | Specimen | + + | Blood specimen | | (specimen) | + + + +---------+ + + | Performing | Address | City/State/Zipcode | Phone Number | | Organization | | | | + +---------+ + + | EXTERNAL LAB | | | | + +---------+ + + Ferritin (11/17/2015 3:54 PM PDT) + + + + + + | Component | Value | Ref Range | Performed | Pathologist | | | | | At | Signature | + + + + + + | Ferritin, | 120Comment: Testing | 6 - 170 ng/mL | EXTERNAL | | | External | performed at [facility], [address] | | LAB | | | | [address], | | | | | | [place] [address] | | | | + + + + + + + + | Specimen | + + | Blood specimen | | (specimen) | + + + +---------+ + + | Performing | Address | City/State/Zipcode | Phone Number | | Organization | | | | + +---------+ + + | EXTERNAL LAB | | | | + +---------+ + + POC Glucose (11/17/2015 3:53 PM PDT) + + + + + + | Component | Value | Ref Range | Performed | Pathologist | | | | | At | Signature | + + + + + + | Glucose, | 243 (H)Comment: Testing | 65 - 99 mg/dL | EXTERNAL | | | Fingerstick | performed at [facility];[address] | | LAB | | | | [address];[place] | | | | | | [address] | | | | + + + + + + + + | Specimen | + + | | + + + +---------+ + + | Performing | Address | City/State/Zipcode | Phone Number | | Organization | | | | + +---------+ + + | EXTERNAL LAB | | | | + +---------+ + + POC Glucose (11/17/2015 11:31 AM PDT) + + + + + + | Component | Value | Ref Range | Performed | Pathologist | | | | | At | Signature | + + + + + + | Glucose, | 264 (H)Comment: Testing | 65 - 99 mg/dL | EXTERNAL | | | Fingerstick | performed at [facility] | | LAB | | | | [address];[place], [place] | | | | | | [address] | | | | + + + + + + + + | Specimen | + + | | + + + +---------+ + + | Performing | Address | City/State/Zipcode | Phone Number | | Organization | | | | + +---------+ + + | EXTERNAL LAB | | | | + +---------+ + + POC Glucose (11/17/2015 10:32 AM PDT) + + + + + + | Component | Value | Ref Range | Performed | Pathologist | | | | | At | Signature | + + + + + + | Glucose, | 234 (H)Comment: Testing | 65 - 99 mg/dL | EXTERNAL | | | Fingerstick | performed at [facility] | | LAB | | | | [address];[place] | | | | | | [address] | | | | + + + + + + + + | Specimen | + + | | + + + +---------+ + + | Performing | Address | City/State/Zipcode | Phone Number | | Organization | | | | + +---------+ + + | EXTERNAL LAB | | | | + +---------+ + + Erythropoietin (11/17/2015 6:03 AM PDT) + + + + + + | Component | Value | Ref Range | Performed | Pathologist | | | | | At | Signature | + + + + + + | ERYTHROPOIE | 10.4Comment: THE | 3.5 - 24.0 | EXTERNAL [...] | | | | | performed at [facility], [address] | | | | | | [facility] | | | | | | [place] [address] | | | | + + + [...] + +---------+ + + External Lab: CBC (11/17/2015 6:03 AM PDT) + + + + + + | Component | Value | Ref Range | Performed | Pathologist | | | | | At | Signature | + + + + + + | WBC | 19.11 (H)Comment: | 3.80 - 11.00 | EXTERNAL | | | | Testing performed at | K/uL | LAB | | | | [facility], [address] [facility] | | | | | | [place] | | | | | | [id number] | | | | + + + + + + | RED CELL | 5.58 (H)Comment: Testing | 3.70 - 5.10 | EXTERNAL | | | COUNT | performed at [facility], [address] | M/[address] | LAB | | | | [address], | | | | | | [place] [address] | | | | + + + + + + | Hgb | 16.7 (H)Comment: Testing | 11.3 - 15.5 | EXTERNAL | | | | performed at [facility], [address] | g/dL | LAB | | | | [address], | | | | | | [place] [address] | | | | + + + + + + | Hematocrit, | 51.7 (H)Comment: Testing | 34.0 - 46.0 % | EXTERNAL | | | POC | performed at [facility], [address] | | LAB | | | | [address], | | | | | | [place] [address] | | | | + + + + + + | MCV | 92.7Comment: Testing | 80.0 - 100.0 fl | EXTERNAL | | | | performed at [facility], [address] | | LAB | | | | [address], | | | | | | [place] [address] | | | | + + + + + + | MCH | 30.0Comment: Testing | 27.0 - 34.0 pg | EXTERNAL | | | | performed at [facility], [address] | | LAB | | | | [address], | | | | | | [place] [address] | | | | + + + + + + | MCHC | 32.3Comment: Testing | 32.0 - 35.5 | EXTERNAL | | | | performed at [facility], [address] | g/dL | LAB | | | | [address], | | | | | | [place] [address] | | | | + + + + + + | RDW-CV | 43.8Comment: Testing | 37 - 53 fl | EXTERNAL | | | | performed at [facility], [address] | | LAB | | | | [address], | | | | | | [place] [address] | | | | + + + + + + | Platelet | 313Comment: Testing | 150 - 400 K/uL | EXTERNAL | | | Count | performed at [facility], [address] | | LAB | | | Plasma | [address], | | | | | | [place] [address] | | | | + + + + + + | MPV | 8.6Comment: Testing | fl | EXTERNAL | | | | performed at [facility], [address] | | LAB | | | | [address], | | | | | | [place] [address] | | | | + + + + + + | Differentia | AUTOMATEDComment: | | EXTERNAL | | | l Type | Testing performed at | | LAB | | | | [facility], [address] [facility] | | | | | | [place] | | | | | | [address] | | | | + + + + + + | % Segmented | 80.72Comment: Testing | % | EXTERNAL | | | | performed at [facility], [address] | | LAB | | | Neutrophils | [address], | | | | | | [place] [address] | | | | + + + + + + | % | 12.51Comment: Testing | % | EXTERNAL | | | Lymphocytes | performed at [facility], [address] | | LAB | | | | [address], | | | | | | [place] [address] | | | | + + + + + + | % Monocytes | 6.42Comment: Testing | % | EXTERNAL | | | | performed at [facility], [address] | | LAB | | | | [address], | | | | | | [place] [address] | | | | + + + + + + | % | 0.01Comment: Testing | % | EXTERNAL | | | Eosinophils | performed at [facility], [address] | | LAB | | | | [address], | | | | | | [place] [address] | | | | + + + + + + | % Basophils | 0.34Comment: Testing | % | EXTERNAL | | | | performed at [facility], [address] | | LAB | | | | [address], | | | | | | [place] [address] | | | | + + + + + + | Absolute | 15.43 (H)Comment: | 1.90 - 7.40 | EXTERNAL | | | Segmented | Testing performed at | K/uL | LAB | | | Neutrophils | [facility], [address] | | | | | | [place] | | | | | | [address] | | | | + + + + + + | Absolute | 2.39Comment: Testing | 1.00 - 3.90 | EXTERNAL | | | Lymphocytes | performed at [facility], [address] | K/uL | LAB | | | | [address], | | | | | | [place] [address] | | | | + + + + + + | Absolute | 1.23 (H)Comment: Testing | 0.00 - 0.80 | EXTERNAL | | | Monocytes | performed at [facility], [address] | [address] | LAB | | | | [address], | | | | | | [place] [address] | | | | + + + + + + | Absolute | 0.00Comment: Testing | 0.00 - 0.50 | EXTERNAL | | | Eosinophils | performed at [facility], [address] | K/uL | LAB | | | | [address], | | | | | | [place] [address] | | | | + + + + + + | Absolute | 0.07Comment: Testing | 0.00 - 0.10 | EXTERNAL | | | Basophils | performed at [facility], [address] | K/uL | LAB | | | | [address], | | | | | | [place] [address] | | | | + + + + + + + + | Specimen | + + | Blood specimen | | (specimen) | + + + +---------+ + + | Performing | Address | City/State/Zipcode | Phone Number | | Organization | | | | + +---------+ + + | EXTERNAL LAB | | | | + +---------+ + + Hemoglobin A1C (11/17/2015 6:03 AM PDT) + + + + + + | Component | Value | Ref Range | Performed | Pathologist | | | | | At | Signature | + + + + + + | Hemoglobin | 10.2 (H)Comment: The | 4.0 - 6.0 % | EXTERNAL | | | A1c | [facility] | | LAB | | | [...] | | | | | performed at [facility], [address] | | | | | [address], | | | | | | [place] [address] | | | | + + + + + + | Glycohemogl | 246Comment: The ADA | mg/dL | EXTERNAL | [...] | | | | | performed at [facility], [address] | | | | | | [facility], | | | | | | [place] [address] | | | | + + + + + + + + | Specimen | + + | Blood specimen | | (specimen) | + + + +---------+ + + | Performing | Address | City/State/Zipcode | Phone Number | | Organization | | | | + +---------+ + + | EXTERNAL LAB | | | | + +---------+ + + Bilirubin, Direct (11/17/2015 6:03 AM PDT) + + + + + + | Component | Value | Ref Range | Performed | Pathologist | | | | | At | Signature | + + + + + + | Bilirubin | <0.1Comment: SPECIMEN | 0.0 - 0.3 mg/dL | EXTERNAL | | | Direct | SLIGHTLY | | LAB | | | | HEMOLYZEDTesting | | | | | | performed at [facility], [address] | | | | | | [address], | | | | | | [place] [address] | | | | + + + + + + + + | Specimen | + + | | + + + +---------+ + + | Performing | Address | City/State/Zipcode | Phone Number | | Organization | | | | + +---------+ + + | EXTERNAL LAB | | | | + +---------+ + + Comprehensive Metabolic Panel (11/17/2015 6:03 AM PDT) + + + + + + | [...] | | | | | [place] [address] | | | | + + + + + + | K | 3.7Comment: SPECIMEN | 3.5 - 4.9 | EXTERNAL | | | | SLIGHTLY | mmol/L | LAB | | | | HEMOLYZEDTesting | | | | | | performed at [facility], [address] | | | | | | [address], | | | | | | [place] [address] | | | | + + + + + + | Cl | 104Comment: Testing | 99 - 109 mmol/L | EXTERNAL | | | | performed at [facility], [address] | | LAB | | | | [address], | | | | | | [place] [address] | | | | + + + + + + | CO2 | 22 (L)Comment: Testing | 23 - 32 mmol/L | EXTERNAL | | | | performed at [facility], [address] | | LAB | | | | [address], | | | | | | [place] [address] | | | | + + + + + + | Anion Gap | 16Comment: Testing | 5 - 20 mmol/L | EXTERNAL | | | | performed at [facility], [address] | | LAB | | | | [address], | | | | | | [place] [address] | | | | + + + + + + | Glucose, | 276 (H)Comment: SPECIMEN | 65 - 99 mg/dL | EXTERNAL | | | Fasting | SLIGHTLY | | LAB | | | | HEMOLYZEDTesting | | | | | | performed at [facility], [address] | | | | | | [address], | | | | | | [place] [address] | | | | + + + + + + | BUN | 13Comment: Testing | 8 - 25 mg/dL | EXTERNAL | | | | performed at [facility], [address] | | LAB | | | | [address], | | | | | | [place] [address] | | | | + + + + + + | Creatinine | 0.7Comment: SPECIMEN | 0.50 - 1.00 | EXTERNAL | | | | SLIGHTLY | mg/dL | LAB | | | | HEMOLYZEDTesting | | | | | | performed at [facility], [address] | | | | | | [address], | | | | | | [place] [address] | | | | + + + + + + | BUN/Creatin | 19Comment: Testing | | EXTERNAL | | | ine Ratio | performed at [facility], [address] | | LAB | | | | [address], | | | | | | [place] [address] | | | | + + + + + + | Calcium | 9.5Comment: Testing | 8.5 - 10.5 | EXTERNAL | | | | performed at [facility], [address] | mg/dL | LAB | | | | [address], | | | | | | [place] [address] | | | | + + + + + + | Protein, | 7.5Comment: Testing | 6.3 - 8.2 g/dL | EXTERNAL | | | Total | performed at [facility], [address] | | LAB | | | | [address], | | | | | | [place] [address] | | | | + + + + + + | Albumin | 3.6Comment: Testing | 3.3 - 4.8 g/dL | EXTERNAL | | | | performed at [facility], [address] | | LAB | | | | [address], | | | | | | [place] [address] | | | | + + + + + + | Globulin | 3.9Comment: Testing | 1.3 - 4.9 g/dL | EXTERNAL | | | | performed at [facility], [address] | | LAB | | | | [address], | | | | | | [place] [address] | | | | + + + + + + | A/G Ratio | 0.9 (L)Comment: Testing | 1.0 - 2.4 | EXTERNAL | | | | performed at [facility], [address] | | LAB | | | | [address], | | | | | | [place] [address] | | | | + + + + + + | Bilirubin | 0.3Comment: SPECIMEN | 0.1 - 1.5 mg/dL | EXTERNAL | | | Total | SLIGHTLY | | LAB | | | | HEMOLYZEDTesting | | | | | | performed at [facility], [address] | | | | | | [address], | | | | | | [place] [address] | | | | + + + + + + | ALP, | 103Comment: Testing | 35 - 115 U/L | EXTERNAL | | | External | performed at [facility], [address] | | LAB | | | | [address], | | | | | | [place] [address] | | | | + + + + + + | AST | 13Comment: SPECIMEN | 10 - 45 U/L | EXTERNAL | | | | SLIGHTLY | | LAB | | | | HEMOLYZEDTesting | | | | | | performed at [facility], [address] | | | | | | [address], | | | | | | [place] [address] | | | | + + + + + + | ALT | 28Comment: SPECIMEN | 10 - 65 U/L | EXTERNAL | | | | SLIGHTLY | | LAB | | | | HEMOLYZEDTesting | | | | | | performed at [facility], [address] | | | | | | [address], | | | | | | [place] [address] | | | | + + + [...] | | | | | | at [facility], [address] | | | | | | [address], | | | | | | [place] [address] | | | | + + + + + + + + | Specimen | + + | Blood specimen | | (specimen) | + + + +---------+ + + | Performing | Address | City/State/Zipcode | Phone Number | | Organization | | | | + +---------+ + + | EXTERNAL LAB | | | | + +---------+ + + POC Glucose (11/17/2015 4:31 AM PDT) + + + + + + | Component | Value | Ref Range | Performed | Pathologist | | | | | At | Signature | + + + + + + | Glucose, | 273 (H)Comment: Testing | 65 - 99 mg/dL | EXTERNAL | | | Fingerstick | performed at [facility] | | [address] | | | | [address];[place], [place] | | | | | | [address] | | | | + + + + + + + + | Specimen | + + | | + + + +---------+ + + | Performing | Address | City/State/Zipcode | Phone Number | | Organization | | | | + +---------+ + + | EXTERNAL LAB | | | | + +---------+ + + Potassium (11/17/2015 12:48 AM PDT) + + + + + + | Component | Value | Ref Range | Performed | Pathologist | | | | | At | Signature | + + + + + + | K | 4.0Comment: SPECIMEN | 3.5 - 4.9 | EXTERNAL | | | | SLIGHTLY | mmol/L | LAB | | | | HEMOLYZEDTesting | | | | | | performed at [facility], [address] | | | | | | [address], | | | | | | [place] [address] | | | | + + + + + + + + | Specimen | + + | Blood specimen | | (specimen) | + + + +---------+ + + | Performing | Address | City/State/Zipcode | Phone Number | | Organization | | | | + +---------+ + + | EXTERNAL LAB | | | | + +---------+ + + POC Glucose (11/16/2015 9:31 PM PDT) + + + + + + | Component | Value | Ref Range | Performed | Pathologist | | | | | At | Signature | + + + + + + | Glucose, | 262 (H)Comment: Testing | 65 - 99 mg/dL | EXTERNAL | | | Fingerstick | performed at [facility] | | LAB | | | | [address];[place], [place] | | | | | | [address] | | | | + + + + + + + + | Specimen | + + | | + + + +---------+ + + | Performing | Address | City/State/Zipcode | Phone Number | | Organization | | | | + +---------+ + + | EXTERNAL LAB | | | | + +---------+ + + POC Glucose (11/16/2015 9:11 PM PDT) + + + + + + | Component | Value | Ref Range | Performed | Pathologist | | | | | At | Signature | + + + + + + | Glucose, | 289 (H)Comment: Testing | 65 - 99 mg/dL | EXTERNAL | | | Fingerstick | performed at [facility] | | LAB | | | | [address];[place] | | | | | | [address] | | | | + + + + + + + + | Specimen | + + | | + + + +---------+ + + | Performing | Address | City/State/Zipcode | Phone Number | | Organization | | | | + +---------+ + + | EXTERNAL LAB | | | | + +---------+ + + Potassium (11/16/2015 5:35 PM PDT) + + + + + + | Component | Value | Ref Range | Performed | Pathologist | | | | | At | Signature | + + + + + + | K | 3.7Comment: Testing | 3.5 - 4.9 | EXTERNAL | | | | performed at [facility];[address] | mmol/L | LAB | | | | [address];[place], [place] | | | | | | [address] | | | | + + + + + + + + | Specimen | + + | | + + + +---------+ + + | Performing | Address | City/State/Zipcode | Phone Number | | Organization | | | | + +---------+ + + | EXTERNAL LAB | | | | + +---------+ + + POC Glucose (11/16/2015 4:43 PM PDT) + + + + + + | Component | Value | Ref Range | Performed | Pathologist | | | | | At | Signature | + + + + + + | Glucose, | 256 (H)Comment: Testing | 65 - 99 mg/dL | EXTERNAL | | | Fingerstick | performed at [facility];[address] | | LAB | | | | [address];[place] | | | | | | [address] | | | | + + + + + + + + | Specimen | + + | | + + + +---------+ + + | Performing | Address | City/State/Zipcode | Phone Number | | Organization | | | | + +---------+ + + | EXTERNAL LAB | | | | + +---------+ + + POC Glucose (11/16/2015 11:55 AM PDT) + + + + + + | Component | Value | Ref Range | Performed | Pathologist | | | | | At | Signature | + + + + + + | Glucose, | 292 (H)Comment: Testing | 65 - 99 mg/dL | EXTERNAL | | | Fingerstick | performed at [facility];[address] | | LAB | | | | [address];[place] | | | | | | [address] | | | | + + + + + + + + | Specimen | + + | | + + + +---------+ + + | Performing | Address | City/State/Zipcode | Phone Number | | Organization | | | | + +---------+ + + | EXTERNAL LAB | | | | + +---------+ + + Parathyroid Hormone, Intact and Calcium (11/16/2015 10:02 AM PDT) + + + + + + | [...] | | | | | [place] [address] | | | | + + + + + + | PTH Intact | 57.9Comment: Nomogram | pg/mL | EXTERNAL | | | | suggests Normal | | LAB | | | | Parathryoid | | | | | | status.Diagnosis of | | | | | | parathyroid disease | | | | | | requires both clinical | | | | | | and laboratory | | | | | | data.Testing performed | | | | | | at [facility], [address] | | | | | | [address], | | | | | | [place] [address] | | | | + + + + + + + + | Specimen | + + | Blood specimen | | (specimen) | + + + +---------+ + + | Performing | Address | City/State/Zipcode | Phone Number | | Organization | | | | + +---------+ + + | EXTERNAL LAB | | | | + +---------+ + + Vitamin D, Deficiency Screen (25-Hydroxy) (11/16/2015 10:02 AM PDT) + + + + + + | Component | Value | Ref Range | Performed | Pathologist | | | | | At | Signature | + + + + + + | Vit D, | 31Comment: <20 ng/mL | 30 - 150 ng/mL | EXTERNAL | | | 25-Hydroxy | Suggests deficiency | | LAB | | | | of 25-OH Vitamin | | | | | | D.20-29 ng/mL | | | | | | Suggests a relative | | | | | | insufficiency of 25-OH | | | | | | Vitamin D.30-150 ng/mL | | | | | | Suggests a sufficient | | | | | | level of 25-OH Vitamin | | | | | | D.>150 ng/mL Toxic | | | | | | level of 25-OH Vitamin | | | | | | D.Blood levels of 25 | | | | | | Hydroxy Vitamin D vary | | | | | | with the extent of sun | | | | | | exposure. Values tend to | | | | | | be highest in late | | | | | | summer and lowest in the | | | | | | spring. Values also | | | | | | tend to decrease with | | | | | | age, due to decreased | | | | | | precursor synthesis in | | | | | | the skin.Testing | | | | | | performed at [facility], [address] | | | | | | [facility], | | | | | | [place] [address] | | | | + + + + + + + + | Specimen | + + | Blood specimen | | (specimen) | + + + +---------+ + + | Performing | Address | City/State/Zipcode | Phone Number | | Organization | | | | + +---------+ + + | EXTERNAL LAB | | | | + +---------+ + + POC Glucose (11/16/2015 6:10 AM PDT) + + + + + + | Component | Value | Ref Range | Performed | Pathologist | | | | | At | Signature | + + + + + + | Glucose, | 331 (H)Comment: Testing | 65 - 99 mg/dL | EXTERNAL | | | Fingerstick | performed at [facility] | | LAB | | | | [address];[place], [place] | | | | | | [address] | | | | + + + + + + + + | Specimen | + + | | + + + +---------+ + + | Performing | Address | City/State/Zipcode | Phone Number | | Organization | | | | + +---------+ + + | EXTERNAL LAB | | | | + +---------+ + + Culture, Blood, 2nd Specimen (11/16/2015 5:55 AM PDT) + + | Specimen | + + | Blood specimen | | (specimen) | + + + + + | Narrative | Performed At | + + + | Specimen Description BLOOD, PERIPHERAL DRAW | EXTERNAL LAB | | SPECIAL REQUESTS RH CULTURE | | | NO GROWTH 6 DAYS | | + + + + +---------+ + + | Performing | Address | City/State/Zipcode | Phone Number | | Organization | | | | + +---------+ + + | EXTERNAL LAB | | | | + +---------+ + + Culture, Blood (11/16/2015 5:54 AM PDT) + + | Specimen | + + | Blood specimen | | (specimen) | + + + + + | Narrative | Performed At | + + + | Specimen Description BLOOD, PERIPHERAL DRAW | EXTERNAL LAB | | SPECIAL REQUESTS LH CULTURE | | | NO GROWTH 6 DAYS | | + + + + +---------+ + + | Performing | Address | City/State/Zipcode | Phone Number | | Organization | | | | + +---------+ + + | EXTERNAL LAB | | | | + +---------+ + + Procalcitonin (11/16/2015 5:38 AM PDT) + + + + + + | Component | Value | Ref Range | Performed | Pathologist | | | | | At | Signature | + + + + + + | PROCALCITON | <0.05Comment: | ng/mL | EXTERNAL | | | IN | INTERPRETIVE | | LAB | | | | INFORMATION: | | | | | | PROCALCITONIN PCT <= | | | | | | 0.5 ng/mL: Low risk | | | | | | for progression to | | | | | | severe systemic | | | | | | bacterial infection | | | | | | (severe sepsis/septic | | | | | | shock). Does not | | | | | | exclude an infection, | | | | | | because localized | | | | | | infections may be | | | | | | associated with such low | | | | | | levels. If PCT is | | | | | | measured very early | | | | | | after bacterial | | | | | | challenge (usually <6 | | | | | | hours), results may | | | | | | still be low and | | | | | | should re-assess PCT | | | | | | 6-24 hours later. PCT | | | | | | >0.5 and <= 2 ng/mL: | | | | | | Moderate risk for | | | | | | progression to severe | | | | | | systemic infection | | | | | | (severe sepsis/septic | | | | | | shock). Other | | | | | | conditions are known | | | | | | to elevate PCT, patient | | | | | | should be closely | | | | | | monitored both | | | | | | clinically and by | | | | | | re-assessing PCT | | | | | | within 6-24 hours. PCT > | | | | | | 2 ng/mL: High | | | | | | likelihood for | | | | | | progression to severe | | | | | | systemic bacterial | | | | | | infection (severe | | | | | | sepsis/septic shock). | | | | | | PCT >= 10 ng/mL: | | | | | | High likelihood of | | | | | | severe sepsis or septic | | | | | | shock.Testing performed | | | | | | at [facility] [place] [address] | | | | | | [facility];[place] [address] | | | | + + + + + + + + | Specimen | + + | | + + + +---------+ + + | Performing | Address | City/State/Zipcode | Phone Number | | Organization | | | | + +---------+ + + | EXTERNAL LAB | | | | + +---------+ + + External Lab: CBC (11/16/2015 5:38 AM PDT) + + + + + + | Component | Value | Ref Range | Performed | Pathologist | | | | | At | Signature | + + + + + + | WBC | 20.88 (H)Comment: | 3.80 - 11.00 | EXTERNAL | | | | Testing performed at | K/uL | LAB | | | | [facility], [address] | | | | | | [place] | | | | | | [address] | | | | + + + + + + | RED CELL | 5.47 (H)Comment: Testing | 3.70 - 5.10 | EXTERNAL | | | COUNT | performed at [facility], [address] | [address] | LAB | | | | [address], | | | | | | [place] [address] | | | | + + + + + + | Hgb | 16.6 (H)Comment: Testing | 11.3 - 15.5 | EXTERNAL | | | | performed at [facility], [address] | g/dL | LAB | | | | [address], | | | | | | [place] [address] | | | | + + + + + + | Hematocrit, | 50.0 (H)Comment: Testing | 34.0 - 46.0 % | EXTERNAL | | | POC | performed at [facility], [address] | | LAB | | | | [address], | | | | | | [place] [address] | | | | + + + + + + | MCV | 91.4Comment: Testing | 80.0 - 100.0 fl | EXTERNAL | | | | performed at [facility], [address] | | LAB | | | | [address], | | | | | | [place] [address] | | | | + + + + + + | MCH | 30.3Comment: Testing | 27.0 - 34.0 pg | EXTERNAL | | | | performed at [facility], [address] | | LAB | | | | [address], | | | | | | [place] [address] | | | | + + + + + + | MCHC | 33.1Comment: Testing | 32.0 - 35.5 | EXTERNAL | | | | performed at [facility], [address] | g/dL | LAB | | | | [address], | | | | | | [place] [address] | | | | + + + + + + | RDW-CV | 42.9Comment: Testing | 37 - 53 fl | EXTERNAL | | | | performed at [facility], [address] | | LAB | | | | [address], | | | | | | [place] [address] | | | | + + + + + + | Platelet | 328Comment: Testing | 150 - 400 K/uL | EXTERNAL | | | Count | performed at [facility], [address] | | LAB | | | Plasma | [address], | | | | | | [place] [address] | | | | + + + + + + | MPV | 8.8Comment: Testing | fl | EXTERNAL | | | | performed at [facility], [address] | | LAB | | | | [address], | | | | | | [place] [address] | | | | + + + + + + | Differentia | MANUALComment: Testing | | EXTERNAL | | | l Type | performed at [facility], [address] | | LAB | | | | [address], | | | | | | [place], [place] [address] | | | | + + + + + + | Segmented | 84Comment: Testing | % | EXTERNAL | | | Neutrophils | performed at [facility], [address] | | LAB | | | Manual | [address], | | | | | | [place], [place] [address] | | | | + + + + + + | % Bands | 6Comment: Testing | % | EXTERNAL | | | | performed at [facility], [address] | | LAB | | | | [address], | | | | | | [place], [place] [address] | | | | + + + + + + | Lymphocytes | 8Comment: Testing | % | EXTERNAL | | | Manual | performed at [facility], [address] | | LAB | | | | [address], | | | | | | [place] [address] | | | | + + + + + + | Monocytes | 2Comment: Testing | % | EXTERNAL | | | Manual | performed at [facility], [address] | | LAB | | | | [address], | | | | | | [place] [address] | | | | + + + + + + | Absolute | 17.54 (H)Comment: | 1.90 - 7.40 | EXTERNAL | | | Neutrophils | Testing performed at | K/uL | LAB | | | | [facility], [address] | | | | | | [place] | | | | | | [address] | | | | + + + + + + | Bands | 1.25 (H)Comment: Testing | 0.00 - 0.20 | EXTERNAL | | | Manual | performed at [facility], [address] | K[address] | LAB | | | | [address], | | | | | | [place] [address] | | | | + + + + + + | Absolute | 1.67Comment: Testing | 1.00 - 3.90 | EXTERNAL | | | Lymphocytes | performed at [facility], [address] | K/uL | LAB | | | | [address], | | | | | | [place] [address] | | | | + + + + + + | Absolute | 0.42Comment: Testing | 0.00 - 0.80 | EXTERNAL | | | Monocytes | performed at [facility], [address] | K/[address] | LAB | | | | [address], | | | | | | [place] [address] | | | | + + + + + + | RBC | RBC AND PLT MORPHOLOGY | | EXTERNAL | | | Morphology | APPEAR NORMALComment: | | LAB | | | | Testing performed at | | | | | | [facility], [address] | | | | | | [place] | | | | | | [address] | | | | + + + + + + + + | Specimen | + + | Blood specimen | | (specimen) | + + + +---------+ + + | Performing | Address | City/State/Zipcode | Phone Number | | Organization | | | | + +---------+ + + | EXTERNAL LAB | | | | + +---------+ + + Phosphorus (11/16/2015 5:38 AM PDT) + + + + + + | Component | Value | Ref Range | Performed | Pathologist | | | | | At | Signature | + + + + + + | PHOSPHORUS | 3.4Comment: SPECIMEN | 2.3 - 4.8 mg/dL | EXTERNAL | | | | SLIGHTLY | | LAB | | | | HEMOLYZEDTesting | | | | | | performed at [facility], [address] | | | | | | [address], | | | | | | [place] [address] | | | | + + + + + + + + | Specimen | + + | Blood specimen | | (specimen) | + + + +---------+ + + | Performing | Address | City/State/Zipcode | Phone Number | | Organization | | | | + +---------+ + + | EXTERNAL LAB | | | | + +---------+ + + Magnesium (11/16/2015 5:38 AM PDT) + + + + + + | Component | Value | Ref Range | Performed | Pathologist | | | | | At | Signature | + + + + + + | Magnesium | 2.0Comment: SPECIMEN | 1.7 - 2.4 mg/dL | EXTERNAL | | | | SLIGHTLY | | LAB | | | | HEMOLYZEDTesting | | | | | | performed at [facility], [address] | | | | | [facility], | | | | | | [place] [address] | | | | + + + + + + + + | Specimen | + + | Blood specimen | | (specimen) | + + + +---------+ + + | Performing | Address | City/State/Zipcode | Phone Number | | Organization | | | | + +---------+ + + | EXTERNAL LAB | | | | + +---------+ + + Hemoglobin A1C (11/16/2015 5:38 AM PDT) + + + + + + | Component | Value | Ref Range | Performed | Pathologist | | | | | At | Signature | + + + + + + | Hemoglobin | 10.2 (H)Comment: The | 4.0 - 6.0 % | EXTERNAL | | | A1c | [facility] | | LAB | | | [...] | | | | | performed at [facility], [address] | | | [address] | [address] [facility], | | | | | | [place] [address] | | | | + + + + + + | Glycohemogl | 246Comment: The ADA | mg/dL | EXTERNAL | [...] | | | | | performed at [facility], [address] | | | | | [facility], | | | | | | [place] [address] | | | | + + + + + + + + | Specimen | + + | Blood specimen | | (specimen) | + + + +---------+ + + | Performing | Address | City/State/Zipcode | Phone Number | | Organization | | | | + +---------+ + + | EXTERNAL LAB | | | | + +---------+ + + Basic Metabolic Panel (11/16/2015 5:38 AM PDT) + + + + + + | Component | Value | Ref Range | Performed | Pathologist | | | | | At | Signature | + + + + + + | Na | 135Comment: Testing | 135 - 145 | EXTERNAL | | | | performed at [facility], [address] | mmol/L | LAB | | | | [address], | | | | | | [place] [address] | | | | + + + + + + | K | 3.7Comment: SPECIMEN | 3.5 - 4.9 | EXTERNAL | | | | SLIGHTLY | mmol/L | LAB | | | | HEMOLYZEDTesting | | | | | | performed at [facility], [address] | | | | | | [address], | | | | | | [place] [address] | | | | + + + + + + | Cl | 97 (L)Comment: Testing | 99 - 109 mmol/L | EXTERNAL | | | | performed at [facility], [address] | | LAB | | | | [address], | | | | | | [place] [address] | | | | + + + + + + | CO2 | 23Comment: Testing | 23 - 32 mmol/L | EXTERNAL | | | | performed at [facility], [address] | | LAB | | | | [address], | | | | | | [place] [address] | | | | + + + + + + | Anion Gap | 19Comment: Testing | 5 - 20 mmol/L | EXTERNAL | | | | performed at [facility], [address] | | LAB | | | | [address], | | | | | | [place] [address] | | | | + + + + + + | Glucose, | 373 (H)Comment: SPECIMEN | 65 - 99 mg/dL | EXTERNAL | | | Fasting | SLIGHTLY | | LAB | | | | HEMOLYZEDTesting | | | | | | performed at [facility], [address] | | | | | | [address], | | | | | | [place] [address] | | | | + + + + + + | BUN | 14Comment: Testing | 8 - 25 mg/dL | EXTERNAL | | | | performed at [facility], [address] | | LAB | | | | [address], | | | | | | [place] [address] | | | | + + + + + + | Creatinine | 0.8Comment: SPECIMEN | 0.50 - 1.00 | EXTERNAL | | | | SLIGHTLY | mg/dL | LAB | | | | HEMOLYZEDTesting | | | | | | performed at [facility], [address] | | | | | | [address], | | | | | | [place] [address] | | | | + + + + + + | BUN/Creatin | 18Comment: Testing | | EXTERNAL | | | ine Ratio | performed at [facility], [address] | | LAB | | | | [address], | | | | | | [place] [address] | | | | + + + + + + | Calcium | 10.7 (H)Comment: Testing | 8.5 - 10.5 | EXTERNAL | | | | performed at [facility], [address] | mg/dL | LAB | | | | [address], | | | | | | [place] [address] | | | | + + + [...] | | | | | | at [facility], [address] | | | | | | [address], | | | | | | [place] [address] | | | | + + + + + + + + | Specimen | + + | Blood specimen | | (specimen) | + + + +---------+ + + | Performing | Address | City/State/Zipcode | Phone Number | | Organization | | | | + +---------+ + + | EXTERNAL LAB | | | | + +---------+ + + POC Glucose (11/16/2015 1:59 AM PDT) + + + + + + | Component | Value | Ref Range | Performed | Pathologist | | | | | At | Signature | + + + + + + | Glucose, | 354 (H)Comment: Testing | 65 - 99 mg/dL | EXTERNAL | | | Fingerstick | performed at [facility] | | [address] | | | [address];[place], [place] | | | | | | [address] | | | | + + + + + + + + | Specimen | + + | | + + + +---------+ + + | Performing | Address | City/State/Zipcode | Phone Number | | Organization | | | | + +---------+ + + | EXTERNAL LAB | | | | + +---------+ + + ECG 12 lead (11/16/2015 1:05 AM PDT) + + + + + + | Component | Value | Ref Range | Performed | Pathologist | | | | | At | Signature | + + + + + + | DIAGNOSIS: | Normal sinus rhythmRight | | EXTERNAL | | | | atrial | | LAB | | | | enlargementProlonged | | | | | | QTAbnormal ECGWhen | | | | | | compared with ECG of | | | | | | 04-SEP-2015 12:11,No | | | | | | significant change was | | | | | | foundThis ECG contains | | | | | | Unconfirmed | | | | | | Interpretation | | | | | | Statements. See ED | | | | | | Record for Physician | | | | | | Interpretation. | | | | | | Confirmed by MUSE READ | | | | | | ONLY, -COMPUTER ([id number]), | | | | | | desk editor ATUL TIPTON | | | | | | ([id number]) on 11/16/2015 | | | | | | 5:04:05 AM | | | | + + + + + + + + | Specimen | + + | | + + + + + | Narrative | Performed At | + + + | [facility] | EXTERNAL LAB | + + + + +---------+ + + | Performing | Address | City/State/Zipcode | Phone Number | | Organization | | | | + +---------+ + + | EXTERNAL LAB | | | | + +---------+ + + Urinalysis, Reflex Microscopic and/or Culture (11/16/2015 12:54 AM PDT) + + + + + + | Component | Value | Ref Range | Performed | Pathologist | | | | | At | Signature | + + + + + + | Color | COLORLESSComment: | | EXTERNAL | | | | Testing performed at | | LAB | | | | [facility] [facility] | | | | | | [address];[place] [address] | | | | + + + + + + | Clarity | CLEARComment: Testing | | EXTERNAL | | | | performed at [facility] | | LAB | | | | [address];[place] | | | | | | [address] | | | | + + + + + + | Specific | 1.015Comment: Testing | 1.002 - 1.030 | EXTERNAL | | | [place] | performed at [facility] | | LAB | | | | [address];[place] | | | | | | [address] | | | | + + + + + + | Leukocyte | NEGATIVEComment: Testing | | EXTERNAL | | | Esterase, | performed at [facility];[address] | | LAB | | | Urine | [address];[place] | | | | | | [address] | | | | + + + + + + | Nitrite, | NEGATIVEComment: Testing | | EXTERNAL | | | Urine | performed at [facility];[address] | | LAB | | | | [address];[place] | | | | | | [address] | | | | + + + + + + | Urobilinoge | NORMALComment: Testing | mg/dL | EXTERNAL | | | n, Urine | performed at [facility] | | LAB | | | | [address];[place] | | | | | | [address] | | | | + + + + + + | Protein, | NEGATIVEComment: Testing | mg/dL | EXTERNAL | | | Urine | performed at [facility];[address] | | LAB | | | | [address];[place] | | | | | | [address] | | | | + + + + + + | pH, Urine | 8.0Comment: Testing | 5.0 - 8.0 | EXTERNAL | | | | performed at [facility];[address] | | LAB | | | | [address];[place] | | | | | | [address] | | | | + + + + + + | Blood, | SMALL (A)Comment: | | EXTERNAL | | | Urine | Testing performed at | | LAB | | | | [facility];[place] [address] | | | | + + + + + + | Ketones | TRACE (A)Comment: | mg/dL | EXTERNAL | | | | Testing performed at | | LAB | | | | [facility];[place] [address] | | | | + + + + + + | Bilirubin, | NEGATIVEComment: Testing | | EXTERNAL | | | Urine | performed at [facility];[address] | | LAB | | | | [address];[place] | | | | | | [address] | | | | + + + + + + | Glucose, | >500 (A)Comment: Testing | mg/dL | EXTERNAL | | | Urine | performed at [facility];[address] | | LAB | | | | [address];[place] | | | | | | [address] | | | | + + + + + + | WBC, UA | 0-2Comment: Testing | 0 - 5 /hpf | EXTERNAL | | | | performed at [facility];[address] | | LAB | | | | [address];[place] | | | | | | [address] | | | | + + + + + + | RBC, UA | 3-5Comment: Testing | 0 - 5 /hpf | EXTERNAL | | | | performed at [facility] | | LAB | | | | [address];[place] | | | | | | [address] | | | | + + + + + + | Bacteria, | NONE SEENComment: | | EXTERNAL | | | UA | Testing performed at | | LAB | | | | [facility];[place] [address] | | | | + + + + + + | Epithelial | 3-5Comment: Testing | /lpf | EXTERNAL | | | Cells | performed at [facility];[address] | | LAB | | | | [address];[place], [place] | | | | | | [address] | | | | + + + + + + + + | Specimen | + + | | + + + +---------+ + + | Performing | Address | City/State/Zipcode | Phone Number | | Organization | | | | + +---------+ + + | EXTERNAL LAB | | | | + +---------+ + + CT Abdomen Pelvis w Contrast (11/16/2015 12:50 AM PDT) + + | Specimen | + + | | + + + + + | Impressions | Performed At | + + + | 1. Fatty liver. 2. Colonic diverticula without evidence of | | | diverticulitis. 3. Appendix appears normal. 4. Spleen shows a small | | | subcapsular fluid collection measuring 2.5 x 0.9 cm. [facility] | | | Electronically signed by John Corado MD on Nov 16 2015 1:24AM | | | Referring Provider Line: [phone] ID: [id number] | | + + + + + + | Narrative | Performed At | + + + | EXAM: CT ABDOMEN AND PELVIS EXAM DATE: 11/16/2015 12:51 AM. | | | CLINICAL HISTORY: Abdominal pain. COMPARISONS: 05/27/2013. | | | TECHNIQUE: Routine helical CT imaging was performed through the | | | abdomen and pelvis. IV contrast: Non-ionic. Enteric contrast: No. | | | Reconstructions: Coronal and sagittal. [...] Lung Bases: Unremarkable. | | | Liver: Fatty infiltration. Gallbladder/Bile Ducts: Unremarkable. | | | Spleen: Small lenticular subcapsular fluid collection measuring | | | 2.5 x 0.9 cm. Pancreas: Normal. Adrenal Glands: Small left | | | adrenal adenoma, similar compared with the prior exam. Right adrenal | | | is unremarkable. Kidneys: Small bilateral cysts. No masses or | | | hydronephrosis. Peritoneal Cavity/Bowel: Colonic diverticula | | | without evidence of diverticulitis. Moderate stool in the colon. No | | | free air or free fluid. No bowel obstruction. No lymphadenopathy. | | | Appendix appears normal. Pelvic Organs: Uterus is not seen. | | | Visualized pelvic organs are otherwise unremarkable. Vasculature: | | | Moderate atherosclerosis. No aortic aneurysm. Bones: Grade 1 | | | degenerative spondylolisthesis at L3-L4. Spinal stenosis. Other: | | | None. | | + + + + + | Procedure Note | + + | Roberth, Rad Conversion - 11/23/2018 9:09 AM PDT EXAM:CT ABDOMEN AND PELVIS EXAM DATE: | | 11/16/2015 12:51 AM. CLINICAL HISTORY: Abdominal pain. COMPARISONS: 05/27/2013. TECHNIQUE: | | Routine helical CT imaging was performed through the abdomen and pelvis. IV contrast: | | Non-ionic. Enteric contrast: No. Reconstructions: Coronal and sagittal. In accordance | | with CT protocol optimization, one or more of the following dose reduction techniques | | were utilized for this exam: automated exposure control, adjustment of mA and/or KV | | based on patient size, or use of iterative reconstructive technique. FINDINGS:Lung | | Bases: Unremarkable. Liver: Fatty infiltration. Gallbladder/Bile Ducts: Unremarkable. | | Spleen: Small lenticular subcapsular fluid collection measuring 2.5 x 0.9 cm. Pancreas: | | Normal. Adrenal Glands: Small left adrenal adenoma, similar compared with the prior | | exam. Right adrenal is unremarkable. Kidneys: Small bilateral cysts. No masses or | | hydronephrosis. Peritoneal Cavity/Bowel: Colonic diverticula without evidence of | | diverticulitis. Moderate stool in the colon. No free air or free fluid. No bowel | | obstruction. No lymphadenopathy. Appendix appears normal. Pelvic Organs: Uterus is not | | seen. Visualized pelvic organs are otherwise unremarkable. Vasculature: Moderate | | atherosclerosis. No aortic aneurysm. Bones: Grade 1 degenerative spondylolisthesis at | | L3-L4. Spinal stenosis. Other: None. IMPRESSION: 1. Fatty liver.2. Colonic diverticula | | without evidence of diverticulitis.3. Appendix appears normal.4. Spleen shows a small | | subcapsular fluid collection measuring 2.5 x 0.9 cm. [facility] Electronically signed by | | John Corado MD on Nov 16 2015 1:24AM Referring Provider Line: [phone] ID: [id number] | |Spleen: Small lenticular subcapsular fluid collection measuring 2.5 x 0.9 cm. | | | |Pancreas: Normal. | | | |Adrenal Glands: Small left adrenal adenoma, similar compared with the prior exam. Right adr enal is unremarkable. | | | |Kidneys: Small bilateral cysts. No masses or hydronephrosis. | | | |Peritoneal Cavity/Bowel: Colonic diverticula without evidence of diverticulitis. Moderate s tool in the colon. No free air or free fluid. No bowel obstruction. No lymphadenopathy. Appe ndix appears normal. | | | |Pelvic Organs: Uterus is not seen. Visualized pelvic organs are otherwise unremarkable. | | | |Vasculature: Moderate atherosclerosis. No aortic aneurysm. | | | |Bones: Grade 1 degenerative spondylolisthesis at L3-L4. Spinal stenosis. | | | |Other: None. | | | |IMPRESSION: | | | |1. Fatty liver. | |2. Colonic diverticula without evidence of diverticulitis. | |3. Appendix appears normal. | |4. Spleen shows a small subcapsular fluid collection measuring 2.5 x 0.9 cm. | | | |[facility] | | | | Electronically signed by John Corado MD on Nov 16 2015 1:24AM Referring Provider Line: [phone] ID: [id number] | + + External Lab: CBC (11/15/2015 11:35 PM PDT) + + + + + + | Component | Value | Ref Range | Performed | Pathologist | | | | | At | Signature | + + + + + + | WBC | 15.45 (H)Comment: | 3.80 - 11.00 | EXTERNAL | | | | Testing performed at | K/uL | LAB | | | | [facility];[place] [address] | | | | + + + + + + | RED CELL | 5.46 (H)Comment: Testing | 3.70 - 5.10 | EXTERNAL | | | COUNT | performed at [facility];[address] | M/uL | LAB | | | | [address];[place] | | | | | | [address] | | | | + + + + + + | Hgb | 16.9 (H)Comment: Testing | 11.3 - 15.5 | EXTERNAL | | | | performed at [facility];[address] | g/dL | LAB | | | | [address];[place] | | | | | | [address] | | | | + + + + + + | Hematocrit, | 50.3 (H)Comment: Testing | 34.0 - 46.0 % | EXTERNAL | | | POC | performed at [facility];[address] | | LAB | | | | [address];[place] | | | | | | [address] | | | | + + + + + + | MCV | 92.2Comment: Testing | 80.0 - 100.0 fl | EXTERNAL | | | | performed at [facility];[address] | | LAB | | | | [address];[place] | | | | | | [address] | | | | + + + + + + | MCH | 30.9Comment: Testing | 27.0 - 34.0 pg | EXTERNAL | | | | performed at [facility];[address] | | LAB | | | | [address];[place] | | | | | | [address] | | | | + + + + + + | MCHC | 33.5Comment: Testing | 32.0 - 35.5 | EXTERNAL | | | | performed at [facility];[address] | g/dL | LAB | | | | [address];[place] | | | | | | [address] | | | | + + + + + + | RDW-CV | 41.1Comment: Testing | 37 - 53 fl | EXTERNAL | | | | performed at [facility] | | LAB | | | | [address];[place] | | | | | | [address] | | | | + + + + + + | Platelet | 342Comment: Testing | 150 - 400 K/uL | EXTERNAL | | | Count | performed at [facility];[address] | | LAB | | | Plasma | [address];[place] | | | | | | [address] | | | | + + + + + + | MPV | 8.3Comment: Testing | fl | EXTERNAL | | | | performed at [facility];[address] | | LAB | | | | [address];[place] | | | | | | [address] | | | | + + + + + + | Differentia | AUTOMATEDComment: | | EXTERNAL | | | l Type | Testing performed at | | LAB | | | | [facility];[place] [address] | | | | + + + + + + | % Segmented | 77.97Comment: Testing | % | EXTERNAL | | | | performed at [facility];[address] | | LAB | | | Neutrophils | [address];[place] | | | | | | [address] | | | | + + + + + + | % | 16.10Comment: Testing | % | EXTERNAL | | | Lymphocytes | performed at [facility];[address] | | LAB | | | | [address];[place] | | | | | | [address] | | | | + + + + + + | % Monocytes | 4.68Comment: Testing | % | EXTERNAL | | | | performed at [facility];[address] | | LAB | | | | [address];[place] | | | | | | [address] | | | | + + + + + + | % | 0.09Comment: Testing | % | EXTERNAL | | | Eosinophils | performed at [facility];[address] | | LAB | | | | [address];[place] | | | | | | [address] | | | | + + + + + + | % Basophils | 1.16Comment: Testing | % | EXTERNAL | | | | performed at [facility];[address] | | LAB | | | | [address];[place] | | | | | | [address] | | | | + + + + + + | Absolute | 12.04 (H)Comment: | 1.90 - 7.40 | EXTERNAL | | | Segmented | Testing performed at | K/uL | LAB | | | Neutrophils | [facility];[address];[place] [address] | | | | + + + + + + | Absolute | 2.49Comment: Testing | 1.00 - 3.90 | EXTERNAL | | | Lymphocytes | performed at [facility];[address] | K/uL | LAB | | | | [address];[place] | | | | | | [address] | | | | + + + + + + | Absolute | 0.72Comment: Testing | 0.00 - 0.80 | EXTERNAL | | | Monocytes | performed at [facility];[address] | K/uL | LAB | | | | [address];[place] | | | | | | [address] | | | | + + + + + + | Absolute | 0.01Comment: Testing | 0.00 - 0.50 | EXTERNAL | | | Eosinophils | performed at [facility];[address] | K/uL | LAB | | | | [address];[place] | | | | | | [address] | | | | + + + + + + | Absolute | 0.18 (H)Comment: Testing | 0.00 - 0.10 | EXTERNAL | | | Basophils | performed at [facility];[address] | K/uL | LAB | | | | [address];[place] | | | | | | [address] | | | | + + + + + + + + | Specimen | + + | Blood specimen | | (specimen) | + + + +---------+ + + | Performing | Address | City/State/Zipcode | Phone Number | | Organization | | | | + +---------+ + + | EXTERNAL LAB | | | | + +---------+ + + C-Reactive Protein (11/15/2015 11:35 PM PDT) + + + + + + | Component | Value | Ref Range | Performed | Pathologist | | | | | At | Signature | + + + + + + | CRP | 0.5 (H)Comment: Testing | mg/dL | EXTERNAL | | | | performed at [facility] | | LAB | | | | [address];[place], [place] | | | | | | [address] | | | | + + + + + + + + | Specimen | + + | Blood specimen | | (specimen) | + + + +---------+ + + | Performing | Address | City/State/Zipcode | Phone Number | | Organization | | | | + +---------+ + + | EXTERNAL LAB | | | | + +---------+ + + Lipase (11/15/2015 11:35 PM PDT) + + + + + + | Component | Value | Ref Range | Performed | Pathologist | | | | | At | Signature | + + + + + + | Lipase | 201Comment: Testing | 73 - 393 U/L | EXTERNAL | | | | performed at [facility] | | LAB | | | | [facility], [place] | | | | | | [address] | | | | + + + + + + + + | Specimen | + + | Blood specimen | | (specimen) | + + + +---------+ + + | Performing | Address | City/State/Zipcode | Phone Number | | Organization | | | | + +---------+ + + | EXTERNAL LAB | | | | + +---------+ + + Lactic Acid (11/15/2015 11:35 PM PDT) + + + + + + | Component | Value | Ref Range | Performed | Pathologist | | | | | At | Signature | + + + + + + | Lactate | 1.8Comment: Testing | 0.4 - 2.0 | EXTERNAL | | | | performed at [facility] | mmol/L | LAB | | | | [address];[place], [place] | | | | | | [address] | | | | + + + [...] + +---------+ + + Comprehensive Metabolic Panel (11/15/2015 11:35 PM PDT) + + + + + + | Component | Value | Ref Range | Performed | Pathologist | | | | | At | Signature | + + + + + + | Na | 132 (L)Comment: Testing | 135 - 145 | EXTERNAL | | | | performed at [facility];[address] | mmol/L | LAB | | | | [address];[place] | | | | | | [address] | | | | + + + + + + | K | 3.7Comment: SLT | 3.5 - 4.9 | EXTERNAL | | | | HEMOLYSISTesting | mmol/L | LAB | | | | performed at [facility] | | | | | | [address];[place] | | | | | | [address] | | | | + + + + + + | Cl | 97 (L)Comment: Testing | 99 - 109 mmol/L | EXTERNAL | | | | performed at [facility];[address] | | LAB | | | | [address];[place] | | | | | | [address] | | | | + + + + + + | CO2 | 28Comment: Testing | 23 - 32 mmol/L | EXTERNAL | | | | performed at [facility];[address] | | LAB | | | | [address];[place] | | | | | | [address] | | | | + + + + + + | Anion Gap | 10Comment: Testing | 5 - 20 mmol/L | EXTERNAL | | | | performed at [facility];[address] | | LAB | | | | [address];[place] | | | | | | [address] | | | | + + + + + + | Glucose, | 377 (H)Comment: Testing | 65 - 99 mg/dL | EXTERNAL | | | Fasting | performed at [facility];[address] | | LAB | | | | [address];[place] | | | | | | [address] | | | | + + + + + + | BUN | 15Comment: Testing | 8 - 25 mg/dL | EXTERNAL | | | | performed at [facility];[address] | | LAB | | | | [address];[place] | | | | | | [address] | | | | + + + + + + | Creatinine | 0.92Comment: Testing | 0.50 - 1.00 | EXTERNAL | | | | performed at [facility];[address] | mg/dL | LAB | | | | [address];[place] | | | | | | [address] | | | | + + + + + + | BUN/Creatin | 17Comment: Testing | | EXTERNAL | | | ine Ratio | performed at [facility];[address] | | LAB | | | | [address];[place] | | | | | | [address] | | | | + + + + + + | Calcium | 10.9 (H)Comment: Testing | 8.5 - 10.5 | EXTERNAL | | | | performed at [facility];[address] | mg/dL | LAB | | | | [address];[place] | | | | | | [address] | | | | + + + + + + | Protein, | 8.8 (H)Comment: Testing | 6.3 - 8.2 g/dL | EXTERNAL | | | Total | performed at [facility];[address] | | LAB | | | | [address];[place] | | | | | | [address] | | | | + + + + + + | Albumin | 4.3Comment: Testing | 3.3 - 4.8 g/dL | EXTERNAL | | | | performed at [facility];[address] | | LAB | | | | [address];[place] | | | | | | [address] | | | | + + + + + + | Globulin | 4.5Comment: Testing | 1.3 - 4.9 g/dL | EXTERNAL | | | | performed at [facility];[address] | | LAB | | | | [address];[place] | | | | | | [address] | | | | + + + + + + | A/G Ratio | 1.0Comment: Testing | 1.0 - 2.4 | EXTERNAL | | | | performed at [facility] [place] | | LAB | | | | [address];[place] | | | | | | [address] | | | | + + + + + + | Bilirubin | 0.3Comment: Testing | 0.1 - 1.5 mg/dL | EXTERNAL | | | Total | performed at [facility] [place] | | LAB | | | | [address];[place] | | | | | | [address] | | | | + + + + + + | ALP, | 159 (H)Comment: Testing | 35 - 115 U/L | EXTERNAL | | | External | performed at [facility] [place] | | LAB | | | | [address];[place] | | | | | | [address] | | | | + + + + + + | AST | 18Comment: SLT | 10 - 45 U/L | EXTERNAL | | | | HEMOLYSISTesting | | LAB | | | | performed at [facility] [place] [facility] [place] | | | | | | [address];[place] | | | | | | [address] | | | | + + + + + + | ALT | 34Comment: Testing | 10 - 65 U/L | EXTERNAL | | | | performed at [facility] [place] | | LAB | | | | [address];[place] | | | | | | [address] | | | | + + + [...] | | | | | | at [facility] [place];[place] [address] | | | | + + + [...] + | Diagnosis | + + | Epigastric abdominal pain Abdominal pain, epigastric | + + | Gastritis Unspecified gastritis and gastroduodenitis without mention of hemorrhage | + + | Essential hypertension, hypertension with unspecified goal | + + | Hyperglycemia Other abnormal glucose | + + documented in this encounter
--- OUTSIDE RECORDS SUMMARY | ~2019-04-09 | XMS | Encounter Summary ---
Demographics + + + | Address | [address] | | | [place] [address] | + + + | Home Phone | | + + + | Preferred Language | Unknown | + + + | Marital Status | | + + + | Bahai Affiliation | Unknown | + + + | Race | Unknown | + + + | Ethnic Group | Unknown | + + + Author + + + | Author | [facility] | | | and [place] | + + + | Organization | [facility] | | | and [...] Team Providers + +------+ + | Care Box Stapler Name | Role | Phone | + +------+ + PCP | Unavailable | + +------+ + Encounter Details +--------+ + + + + | Date | Type | Department | Care Team | Description | +--------+ + + + + | 11/14/ | Hospital | [facility] | [place], | Epigastric abdominal | | 2016 - | Encounter | [facility]ICAL [facility]ENTER | MD [address] | pain; Gastritis; | | | | CLINICAL DECISION | [address] | Essential | | 11/18/ | | [address] | [place] [address] | hypertension, | | 2016 | | [place] | [phone] | hypertension with | | | | [address] | | unspecified goal; | | | | [phone] | | Hyperglycemia | +--------+ + + [...] Summaries by Laila Pruitt MD at 11/19/15 0227 Author: Laila Pruitt MD Service: (none) Author Type: Physician Filed: 11/19/15 2419 Date of Service: 11/19/151054 Status: Addendum Repair Miller: Laila Pruitt MD (Physician) Related Notes: Original Note by Laila Pruitt MD (Physician) filed at 11/19/15 5595 [facility] Service: Hospitalist Discharge Summary Date of [...] Lowry DO [address] [place] [address] Schedule an appointment as soon as possible for a visit [facility] Emergency Department [address] [place] [id number] If symptoms worsen Braydon Lowry DO [address] [place] [address] In 1 week Discharge took 35 minutes, [...] Commonly known as: ULTRAM vitamin D2 (ergocalciferol) 05094 UNITS capsule Refills: 0 Where to Get Your Medications 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 You may get the following medications from [...] 1209 Date of Service: 11/19/151207 Status: Signed Repair Miller: Lien Starkey RN (Registered Nurse) Patient d/c instructions given with family present. All questions answered. Spouse to [facility] transportation. Lien Starkey RN onver glory Transaction, Provider Unknown - 11/19/2015 5:41 AM PDT Nurse Progress Note by Ximena Villela RN at 11/19/1541 Author: Ximena Villela RN Service: (none) Author Type: Registered Nurse Filed: 11/19/15 0549 Date of Service: 11/19/15540 Status: Signed Repair Miller: Ximena Villela RN (Registered Nurse) Pt's pain [...] 11/18/151755 Date of Service: 11/18/151747 Status: Signed Repair Miller: Selma Shook RN (Registered Nurse) Patient complains [...] Notes by Laila Pruitt MD at 11/18/15 1104 Author: Laila Pruitt MD Service: (none) Author Type: Physician Filed: 11/18/15 1129 Date of Service: 11/18/15 1105 Status: Addendum Repair Miller: Laila Pruitt MD (Physician) Related Notes: Original Note by Laila Pruitt MD (Physician) filed at 11/18/15 1126 [facility] Service: Hospitalist Progress Note Hospital Day: [...] Date of Service: 11/18/15 1024 Status: Signed Repair Miller: Caity Kenney RN (Registered Nurse) Patient requesting [...] Date of Service: 11/18/15 0730 Status: Signed Repair Miller: Caity Kenney RN (Registered Nurse) Noted that [...] 11/18/15626 Date of Service: 11/18/15623 Status: Signed Repair Miller: Cordelia Stein RN (Registered Nurse) Have kept [...] 1524 Date of Service: 11/17/151511 Status: Signed Repair Miller: Amada Jurado MD (Physician) [facility] Service: Hospitalist Progress Note Hospital Day: Post-Op Day: * No surgery found * SUBJECTIVE Patient summary: 60 with history of tobacco use, DC, hypertension who presented with nausea /vomitting abdominal [...] hours. No results for input(s): PHART, PO2ART, VSP9IIZ, D6SNBITJ, BEART in the last 168 hours. No [...] Nov 16 2015 1:24AM Referring Provider Line: [phone] ID: [id number] PROBLEM LIST Principal Problem: Abdominal [...] SBP >180. HLD: continue statin. 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 Continue plavix, statin, ?not on BB. DM type II with hyperglycemia: on metformin at home. a1c 10. Increase lantus to 15 units an d continue high dose SSI. Monitor BS. Ordered early childhood special educator. Hypercalcemia: resolved.could be 2/2 dehydration, PTH [...] Date of Service: 11/17/15 104 Status: Signed Repair Miller: Becky Cardenas RN (Registered Nurse) 11/17/15 1033 Discharge Planning Evaluation Admitting Diagnosis intractable abdominal pain Readmission No Living Arrangements (James - [phone]) Support Systems Spouse/significant other;Children;Family members Type of Residence Other (Comment);Private residence House type Mobile home Independent with ADL's Yes Independent with Mobility Yes Home Care Services No Mental Status Oriented Power of Benefits Manager No Anticipated Discharge Plan Post Acute Care [...] 11/17/151038 Date of Service: 11/17/151035 Status: Signed Repair Miller: Becky Cardenas RN (Registered Nurse) Met with: patient and James [phone] and discussed discharge planning, Pt is a 60 y.o., female admitted with c/o intractable abdominal pain. 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 Independent with all adl's and mobility. Patient's PCP is: BRAYDON LOWRY Patient's insurance:[employer] Coverage concerns: none Medication coverage/concerns: y/n [facility] Bedside Delivery: [facility] resources utilized / needed: none Assistance in [...] 11/16/151855 Date of Service: 11/16/151854 Status: Signed Repair Miller: Ester Merchant RN (Registered Nurse) 162/67 Patient asleep at bedside, left her undisturbed. onver glory Transaction, Provider Unknown - 11/16/2015 3:37 PM PDT Nurse Progress Note by Ester Merchant RN at 11/16/151536 Author: Ester Merchant RN Service: (none) Author Type: Registered Nurse Filed: 11/16/151537 Date of Service: 11/16/151536 Status: Signed Repair Miller: Ester Merchant RN (Registered Nurse) PRN hydralazine for HTN onver glory Transaction, Provider Unknown - 11/16/2015 12:09 PM PDT Nurse Progress Note by Ester Merchant RN at 11/16/15 1209 Author: Ester Merchant RN Service: (none) Author Type: Registered Nurse Filed: 11/16/15 1210 Date of Service: 11/16/15 1209 Status: Signed Repair Miller: Ester Merchant RN (Registered Nurse) PRN labetolol for hypertension On monitor Q30 minutes onver glory Transaction, Provider Unknown - 11/16/2015 10:32 AM PDT Nurse Progress Note by Ester Merchant RN at 11/16/15 1032 Author: Ester Merchant RN Service: (none) Author Type: Registered Nurse Filed: 11/16/15 1033 Date of Service: 11/16/15 1032 Status: Signed Repair Miller: Ester Merchant RN (Registered Nurse) Po Rx for c/o abdominal pain Tele on Amada Cotton i, MD - 11/16/2015 9:47 AM PDTFormatting of this note might be different from the or iginal. Progress Notes by Amada Jurado MD at 11/16/15 0947 Author: Amada Jurado MD Service: Hospitalist Author Type: Physician Filed: 11/16/15 1014 Date of Service: 11/16/15 0947 Status: Addendum Repair Miller: Amada Jurado MD (Physician) Related Notes: Original Note by Amada Jurado MD (Physician) filed at 11/16/15 1012 [facility] Service: Hospitalist Progress Note Hospital Day: Post-Op [...] hours. No results for input(s): PHART, PO2ART, QUD8TXZ, O7FSYSXT, BEART in the last 168 hours. No [...] Nov 16 2015 1:24AM Referring Provider Line: [phone] ID: [id number] PROBLEM LIST Principal Problem: Abdominal [...] SBP >180. HLD: continue statin. 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 Continue plavix, statin, ?not on BB. DM type II with hyperglycemia: on metformin at home. a1c 10. Will start Lantus and increase to high dose SSI. Monitor BS. Ordered early childhood special educator. Hypercalcemia: could be 2/2 dehydration but [...] 11/16/15803 Date of Service: 11/16/15802 Status: Signed Repair Miller: Ester Merchant RN (Registered Nurse) Electrolyte protocol: Mg 2, no replacement necessary. K+ 3.7 messaged pharmacy to send 20 mEq IV onver glory Transaction, Provider Unknown - 11/16/2015 5:45 AM PDT Progress Notes by Susannah Tristan RPH at 11/16/15544 Author: Susannah Tristan RPH Service: (none) Author Type: Pharmacist Filed: 11/16/1545 Date of Service: 11/16/15544 Status: Signed Repair Miller: Susannah Tristan RPH (Pharmacist) Renal Dosing Monitoring: [...] | | | Fingerstick | performed at [facility];[address] | | LAB | | | | [address];[place], [place] | | | | | | [address] | | | | + + + [...] EXTERNAL | | | | performed at [facility];[address] | K/uL | LAB | | | | [address];[place] | | | | | | [address] | | | | + + + + + + | RED CELL | 4.66Comment: Testing | 3.70 - 5.10 | EXTERNAL | | | COUNT | performed at [facility];[address] | M/uL | LAB | | | | [address];[place] | | | | | | [address] | | | | + + + + + + | Hgb | 14.6Comment: Testing | 11.3 - 15.5 | EXTERNAL | | | | performed at [facility];[address] | g/dL | LAB | | | | [address];[place] | | | | | | [address] | | | | + + + + + + | Hematocrit, | 42.6Comment: Testing | 34.0 - 46.0 % | EXTERNAL | | | POC | performed at [facility];[address] | | LAB | | | | [address];[place] | | | | | | [address] | | | | + + + + + + | MCV | 91.5Comment: Testing | 80.0 - 100.0 fl | EXTERNAL | | | | performed at [facility];[address] | | LAB | | | | [address];[place] | | | | | | [address] | | | | + + + + + + | MCH | 31.4Comment: Testing | 27.0 - 34.0 pg | EXTERNAL | | | | performed at [facility];[address] | | LAB | | | | [address];[place] | | | | | | [address] | | | | + + + + + + | MCHC | 34.3Comment: Testing | 32.0 - 35.5 | EXTERNAL | | | | performed at [facility];[address] | g/dL | LAB | | | | [address];[place] | | | | | | [address] | | | | + + + + + + | RDW-CV | 43.3Comment: Testing | 37 - 53 fl | EXTERNAL | | | | performed at [facility];[address] | | LAB | | | | [address];[place] | | | | | | [address] | | | | + + + + + + | Platelet | 283Comment: Testing | 150 - 400 K/uL | EXTERNAL | | | Count | performed at [facility];[address] | | LAB | | | Plasma | [address];[place] | | | | | | [address] | | | | + + + + + + | MPV | 8.0Comment: Testing | fl | EXTERNAL | | | | performed at [facility];[address] | | LAB | | | | [address];[place] | | | | | | [address] | | | | + + + + + + | Differentia | AUTOMATEDComment: | | EXTERNAL | | | l Type | Testing performed at | | LAB | | | | [facility];[address];[place] [address] | | | | + + + + + + | % Segmented | 59.96Comment: Testing | % | EXTERNAL | | | | performed at [facility];[address] | | LAB | | | Neutrophils | [address];[place] | | | | | | [address] | | | | + + + + + + | % | 28.13Comment: Testing | % | EXTERNAL | | | Lymphocytes | performed at [facility];[address] | | LAB | | | | [address];[place] | | | | | | [address] | | | | + + + + + + | % Monocytes | 11.00Comment: Testing | % | EXTERNAL | | | | performed at [facility];[address] | | LAB | | | | [address];[place] | | | | | | [address] | | | | + + + + + + | % | 0.23Comment: Testing | % | EXTERNAL | | | Eosinophils | performed at [facility];[address] | | LAB | | | | [address];[place] | | | | | | [address] | | | | + + + + + + | % Basophils | 0.68Comment: Testing | % | EXTERNAL | | | | performed at [facility];[address] | | LAB | | | | [address];[place] | | | | | | [address] | | | | + + + + + + | Absolute | 5.18Comment: Testing | 1.90 - 7.40 | EXTERNAL | | | Segmented | performed at [facility];[address] | K/uL | LAB | | | Neutrophils | [address];[place] | | | | | | [address] | | | | + + + + + + | Absolute | 2.43Comment: Testing | 1.00 - 3.90 | EXTERNAL | | | Lymphocytes | performed at [facility];[address] | K/uL | LAB | | | | [address];[place] | | | | | | [address] | | | | + + + + + + | Absolute | 0.95 (H)Comment: Testing | 0.00 - 0.80 | EXTERNAL | | | Monocytes | performed at [facility];[address] | K/uL | LAB | | | | [address];[place] | | | | | | [address] | | | | + + + + + + | Absolute | 0.02Comment: Testing | 0.00 - 0.50 | EXTERNAL | | | Eosinophils | performed at [facility];[address] | K/uL | LAB | | | | [address];[place] | | | | | | [address] | | | | + + + + + + | Absolute | 0.06Comment: Testing | 0.00 - 0.10 | EXTERNAL | | | Basophils | performed at [facility];[address] | K/uL | LAB | | | | [address];[place] | | | | | | [address] | | | | + + + [...] EXTERNAL | | | | performed at [facility];[address] | mmol/L | LAB | | | | [address];[place], [place] | | | | | | [address] | | | | + + + + + + | K | 3.2 (L)Comment: Testing | 3.5 - 4.9 | EXTERNAL | | | | performed at [facility];[address] | mmol/L | LAB | | | | [address];[place] | | | | | | [address] | | | | + + + + + + | Cl | 104Comment: Testing | 99 - 109 mmol/L | EXTERNAL | | | | performed at [facility];[address] | | LAB | | | | [address];[place] | | | | | | [address] | | | | + + + + + + | CO2 | 26Comment: Testing | 23 - 32 mmol/L | EXTERNAL | | | | performed at [facility];[address] | | LAB | | | | [address];[place] | | | | | | [address] | | | | + + + + + + | Anion Gap | 9Comment: Testing | 5 - 20 mmol/L | EXTERNAL | | | | performed at [facility];[address] | | LAB | | | | [address];[place] | | | | | | [address] | | | | + + + + + + | Glucose, | 168 (H)Comment: Testing | 65 - 99 mg/dL | EXTERNAL | | | Fasting | performed at [facility];[address] | | LAB | | | | [address];[place] | | | | | | [address] | | | | + + + + + + | BUN | 16Comment: Testing | 8 - 25 mg/dL | EXTERNAL | | | | performed at [facility];[address] | | LAB | | | | [address];[place] | | | | | | [address] | | | | + + + + + + | Creatinine | 0.87Comment: Testing | 0.50 - 1.00 | EXTERNAL | | | | performed at [facility];[address] | mg/dL | LAB | | | | [address];[place] | | | | | | [address] | | | | + + + + + + | BUN/Creatin | 18Comment: Testing | | EXTERNAL | | | ine Ratio | performed at [facility];[address] | | LAB | | | | [address];[place] | | | | | | [address] | | | | + + + + + + | Calcium | 9.1Comment: Testing | 8.5 - 10.5 | EXTERNAL | | | | performed at [facility];[address] | mg/dL | LAB | | | | [address];[place] | | | | | | [address] | | | | + + + [...] | | | | | | at [facility];[address] | | | | | | [address];[place] [address] | | | | + + + [...] | | | | | | [place] [address] | | | | + + + [...] EXTERNAL | | | | performed at [facility], [address] | | LAB | | | | [address], | | | | | | [place] [address] | | | | + + + [...] EXTERNAL | | | | performed at [facility], [address] | | LAB | | | | [address], | | | | | | [place] [address] | | | | + + + [...] | | | Fingerstick | performed at [facility];[address] | | LAB | | | | [address];[place] | | | | | | [address] | | | | + + + [...] | | technical preparation was performed by [employer] [facility] | | | [address] [address] | | | (Sourcing Manager: Vinh Leal M.D.; [facility]#: [id number]). | | | Diagnostician: Harleen Jeffers MD [...] | | | Fingerstick | performed at [facility];[address] | | LAB | | | | [address];[place] | | | | | | [address] | | | | + + + [...] EXTERNAL | | | | performed at [facility];[address] | mmol/L | LAB | | | | [address];[place] | | | | | | [address] | | | | + + + [...] | | | Fingerstick | performed at [facility];[address] | | LAB | | | | [address];[place] | | | | | | [address] | | | | + + + [...] | | | Fingerstick | performed at [facility];[address] | | LAB | | | | [address];[place], [place] | | | | | | [address] | | | | + + + [...] | | | Fingerstick | performed at [facility];[address] | | LAB | | | | [address];[place], [place] | | | | | | [address] | | | | + + + [...] | | | | [facility], [address] [facility] | | | | | | [place] | | | | | | [address] | | | | + + + + + + | RED CELL | 5.38 (H)Comment: Testing | 3.70 - 5.10 | EXTERNAL | | | COUNT | performed at [facility], [address] | M/uL | LAB | | | | [address], | | | | | | [place] [address] | | | | + + + + + + | Hgb | 16.5 (H)Comment: Testing | 11.3 - 15.5 | EXTERNAL | | | | performed at [facility], [address] | g/dL | LAB | | | | [address], | | | | | | [place] [address] | | | | + + + + + + | Hematocrit, | 49.5 (H)Comment: Testing | 34.0 - 46.0 % | EXTERNAL | | | POC | performed at [facility], [address] | | LAB | | | | [address], | | | | | | [place] [address] | | | | + + + + + + | MCV | 92.0Comment: Testing | 80.0 - 100.0 fl | EXTERNAL | | | | performed at [facility], [address] | | LAB | | | [address], | | | | | | [place] [address] | | | | + + + + + + | MCH | 30.6Comment: Testing | 27.0 - 34.0 pg | EXTERNAL | | | | performed at [facility], [address] | | LAB | | | [address], | | | | | | [place] [address] | | | | + + + + + + | MCHC | 33.2Comment: Testing | 32.0 - 35.5 | EXTERNAL | | | | performed at [facility], [address] | g/dL | LAB | | | | [address], | | | | | | [place] [address] | | | | + + + + + + | RDW-CV | 43.3Comment: Testing | 37 - 53 fl | EXTERNAL | | | | performed at [facility], [address] | | LAB | | | | [address], | | | | | | [place] [address] | | | | + + + + + + | Platelet | 345Comment: Testing | 150 - 400 K/uL | EXTERNAL | | | Count | performed at [facility], [address] | | LAB | | | Plasma | [address], | | | | | | [place] [address] | | | | + + + + + + | MPV | 8.4Comment: Testing | fl | EXTERNAL | | | | performed at [facility], [address] | | LAB | | | | [address], | | | | | | [place] [address] | | | | + + + + + + | Differentia | AUTOMATEDComment: | | EXTERNAL | | | l Type | Testing performed at | | LAB | | | | [facility], [address] | | | | | | [place] | | | | | | [address] | | | | + + + + + + | % Segmented | 72.32Comment: Testing | % | EXTERNAL | | | | performed at [facility], [address] | | LAB | | | Neutrophils | [address], | | | | | | [place] [address] | | | | + + + + + + | % | 20.25Comment: Testing | % | EXTERNAL | | | Lymphocytes | performed at [facility], [address] | | LAB | | | | [address], | | | | | | [place] [address] | | | | + + + + + + | % Monocytes | 7.05Comment: Testing | % | EXTERNAL | | | | performed at [facility], [address] | | LAB | | | | [address], | | | | | | [place] [address] | | | | + + + + + + | % | 0.01Comment: Testing | % | EXTERNAL | | | Eosinophils | performed at [facility], [address] | | LAB | | | | [address], | | | | | | [place] [address] | | | | + + + + + + | % Basophils | 0.37Comment: Testing | % | EXTERNAL | | | | performed at [facility], [address] | | LAB | | | | [address], | | | | | | [place] [address] | | | | + + + + + + | Absolute | 10.45 (H)Comment: | 1.90 - 7.40 | EXTERNAL | | | Segmented | Testing performed at | K/uL | LAB | | | Neutrophils | [facility], [address] | | | | | | [place] | | | | | | [address] | | | | + + + + + + | Absolute | 2.93Comment: Testing | 1.00 - 3.90 | EXTERNAL | | | Lymphocytes | performed at [facility], [address] | K/uL | LAB | | | | [address], | | | | | | [place] [address] | | | | + + + + + + | Absolute | 1.02 (H)Comment: Testing | 0.00 - 0.80 | EXTERNAL | | | Monocytes | performed at [facility], [address] | K/uL | LAB | | | | [address], | | | | | | [place] [address] | | | | + + + + + + | Absolute | 0.00Comment: Testing | 0.00 - 0.50 | EXTERNAL | | | Eosinophils | performed at [facility], [address] | K/uL | LAB | | | | [address], | | | | | | [place] [address] | | | | + + + + + + | Absolute | 0.05Comment: Testing | 0.00 - 0.10 | EXTERNAL | | | Basophils | performed at [facility], [address] | K/uL | LAB | | | | [address], | | | | | | [place] [address] | | | | + + + [...] | | | | | [place] [address] | | | | + + + [...] | | | | | [place] [address] | | | | + + + + + + | K | 3.4 (L)Comment: SPECIMEN | 3.5 - 4.9 | EXTERNAL | | | | SLIGHTLY | mmol/L | LAB | | | | HEMOLYZEDTesting | | | | | | performed at [facility], [address] | | | | | | [address], | | | | | | [place] [address] | | | | + + + + + + | Cl | 101Comment: Testing | 99 - 109 mmol/L | EXTERNAL | | | | performed at [facility], [address] | | LAB | | | | [address], | | | | | | [place] [address] | | | | + + + + + + | CO2 | 24Comment: Testing | 23 - 32 mmol/L | EXTERNAL | | | | performed at [facility], [address] | | LAB | | | | [address], | | | | | | [place] [address] | | | | + + + + + + | Anion Gap | 14Comment: Testing | 5 - 20 mmol/L | EXTERNAL | | | | performed at [facility], [address] | | LAB | | | | [address], | | | | | | [place] [address] | | | | + + + [...] | | | | | [place] [address] | | | | + + + + + + | BUN | 9Comment: Testing | 8 - 25 mg/dL | EXTERNAL | | | | performed at [facility], [address] | | LAB | | | | [address], | | | | | | [place] [address] | | | | + + + + + + | Creatinine | 0.6Comment: SPECIMEN | 0.50 - 1.00 | EXTERNAL | | | | SLIGHTLY | mg/dL | LAB | | | | HEMOLYZEDTesting | | | | | | performed at [facility], [address] | | | | | | [address], | | | | | | [place] [address] | | | | + + + + + + | BUN/Creatin | 15Comment: Testing | | EXTERNAL | | | ine Ratio | performed at [facility], [address] | | LAB | | | | [address], | | | | | | [place] [address] | | | | + + + + + + | Calcium | 9.1Comment: Testing | 8.5 - 10.5 | EXTERNAL | | | | performed at [facility], [address] | mg/dL | LAB | | | | [address], | | | | | | [place] [address] | | | | + + + [...] | | | | | | at [facility], [address] | | | | | | [facility], | | | | | | [place] [address] | | | | + + + [...] | | | Fingerstick | performed at [facility];[address] | | LAB | | | | [address];[place] | | | | | | [address] | | | | + + + [...] LAB | | | | performed at [facility];[address] | | | | | | [address];[place] | | | | | | [address] | | | | + + + [...] | | | | | [place] [address] | | | | + + + + + + | TIBC | 271Comment: Testing | 260 - 490 ug/dL | EXTERNAL | | | | performed at [facility], [address] | | LAB | | | | [address], | | | | | | [place] [address] | | | | + + + + + + | Iron | 35Comment: Testing | 15 - 50 % | EXTERNAL | | | Saturation | performed at [facility], [address] | | LAB | | | | [address], | | | | | | [place] [address] | | | | + + + [...] | | | | | performed at [facility] | | | | | | [address];[place], [place] | | | | | | [address] | | | | + + + [...] | | | | | performed at [facility];[address] | | | | | | [facility];[place], [place] | | | | | | [address] | | | | + + + [...] | | | External | performed at [facility], [address] | | LAB | | | | [address], | | | | | | [place] [id number] | | | | + + + [...] | | | Fingerstick | performed at [facility];[address] | | LAB | | | | [address];[place] | | | | | | [address] | | | | + + + [...] | | | Fingerstick | performed at [facility];[address] | | LAB | | | | [address];[place], [place] | | | | | | [address] | | | | + + + [...] | | | Fingerstick | performed at [facility];[address] | | LAB | | | | [place] | | | | | | [address] | | | | + + + [...] | | | | | performed at [facility], [address] | | | | | [facility] | | | | | | [place] [address] | | | | + + + [...] | | | | TCL, [address] [facility] | | | | | | [place] | | | | | | [address] | | | | + + + + + + | RED CELL | 5.58 (H)Comment: Testing | 3.70 - 5.10 | EXTERNAL | | | COUNT | performed at TC, [address] | M/uL | LAB | | | | [address], | | | | | | [place] [address] | | | | + + + + + + | Hgb | 16.7 (H)Comment: Testing | 11.3 - 15.5 | EXTERNAL | | | | performed at TC, [address] | g/dL | LAB | | | | [address], | | | | | | [place] [address] | | | | + + + + + + | Hematocrit, | 51.7 (H)Comment: Testing | 34.0 - 46.0 % | EXTERNAL | | | POC | performed at TCL, [address] | | LAB | | | | [address], | | | | | | [place] [address] | | | | + + + + + + | MCV | 92.7Comment: Testing | 80.0 - 100.0 fl | EXTERNAL | | | | performed at TCL, [address] | | LAB | | | | [address], | | | | | | [place] [address] | | | | + + + + + + | MCH | 30.0Comment: Testing | 27.0 - 34.0 pg | EXTERNAL | | | | performed at TCL, [address] | | LAB | | | | [address], | | | | | | [place] [address] | | | | + + + + + + | MCHC | 32.3Comment: Testing | 32.0 - 35.5 | EXTERNAL | | | | performed at TCL, [address] | g/dL | LAB | | | | [address], | | | | | | [place] [address] | | | | + + + + + + | RDW-CV | 43.8Comment: Testing | 37 - 53 fl | EXTERNAL | | | | performed at TCL, [address] | | LAB | | | | [address], | | | | | | [place] [address] | | | | + + + + + + | Platelet | 313Comment: Testing | 150 - 400 K/uL | EXTERNAL | | | Count | performed at TCL, [address] | | LAB | | | Plasma | [address], | | | | | | [place] [address] | | | | + + + + + + | MPV | 8.6Comment: Testing | fl | EXTERNAL | | | | performed at TCL, [address] | | LAB | | | | [address], | | | | | | [place] [address] | | | | + + + + + + | Differentia | AUTOMATEDComment: | | EXTERNAL | | | l Type | Testing performed at | | LAB | | | | TCL, [address] [facility] | | | | | | [place] | | | | | | [address] | | | | + + + + + + | % Segmented | 80.72Comment: Testing | % | EXTERNAL | | | | performed at [facility], [address] | | LAB | | | Neutrophils | [address], | | | | | | [place] [address] | | | | + + + + + + | % | 12.51Comment: Testing | % | EXTERNAL | | | Lymphocytes | performed at TC, [address] | | LAB | | | | [address], | | | | | | [place] [address] | | | | + + + + + + | % Monocytes | 6.42Comment: Testing | % | EXTERNAL | | | | performed at TCL, [address] | | LAB | | | | [address], | | | | | | [place] [address] | | | | + + + + + + | % | 0.01Comment: Testing | % | EXTERNAL | | | Eosinophils | performed at TCL, [address] | | LAB | | | | [address], | | | | | | [place] [address] | | | | + + + + + + | % Basophils | 0.34Comment: Testing | % | EXTERNAL | | | | performed at TCL, [address] | | LAB | | | | [address], | | | | | | [place] [address] | | | | + + + + + + | Absolute | 15.43 (H)Comment: | 1.90 - 7.40 | EXTERNAL | | | Segmented | Testing performed at | K/uL | LAB | | | Neutrophils | TCL, [address] | | | | | | [place] | | | | | | [address] | | | | + + + + + + | Absolute | 2.39Comment: Testing | 1.00 - 3.90 | EXTERNAL | | | Lymphocytes | performed at TC, [address] | K/uL | LAB | | | | [address], | | | | | | [place] [address] | | | | + + + + + + | Absolute | 1.23 (H)Comment: Testing | 0.00 - 0.80 | EXTERNAL | | | Monocytes | performed at TCL, [address] | K/uL | LAB | | | | [address], | | | | | | [place] [address] | | | | + + + + + + | Absolute | 0.00Comment: Testing | 0.00 - 0.50 | EXTERNAL | | | Eosinophils | performed at TCL, [address] | K/uL | LAB | | | | [address], | | | | | | [place] [address] | | | | + + + + + + | Absolute | 0.07Comment: Testing | 0.00 - 0.10 | EXTERNAL | | | Basophils | performed at [facility], [address] | K/uL | LAB | | | | [address] [place], | | | | | | [place] [address] | | | | + + + [...] | EXTERNAL | | | A1c | [place] Diabetes | | LAB | | | [...] | | | | | performed at [facility], [address] | | | | | | [address], | | | | | | [place] [address] | | | | + + + [...] | | | | | performed at [facility], [address] | | | | | | [facility], | | | | | | [place] [address] | | | | + + + [...] | | | | | performed at [facility], [address] | | | | | | [address], | | | | | | [place] [address] | | | | + + + [...] | | | | | [place] [address] | | | | + + + + + + | K | 3.7Comment: SPECIMEN | 3.5 - 4.9 | EXTERNAL | | | | SLIGHTLY | mmol/L | LAB | | | | HEMOLYZEDTesting | | | | | | performed at TCL, [address] | | | | | | [address], | | | | | | [place] [address] | | | | + + + + + + | Cl | 104Comment: Testing | 99 - 109 mmol/L | EXTERNAL | | | | performed at TCL, [address] | | LAB | | | | [address], | | | | | | [place] [address] | | | | + + + + + + | CO2 | 22 (L)Comment: Testing | 23 - 32 mmol/L | EXTERNAL | | | | performed at TCL, [address] | | LAB | | | | [address], | | | | | | [place] [address] | | | | + + + + + + | Anion Gap | 16Comment: Testing | 5 - 20 mmol/L | EXTERNAL | | | | performed at TCL, [address] | | LAB | | | | [address], | | | | | | [place] [address] | | | | + + + [...] | | | | | [place] [address] | | | | + + + + + + | BUN | 13Comment: Testing | 8 - 25 mg/dL | EXTERNAL | | | | performed at TCL, [address] | | LAB | | | | [address], | | | | | | [place] [address] | | | | + + + + + + | Creatinine | 0.7Comment: SPECIMEN | 0.50 - 1.00 | EXTERNAL | | | | SLIGHTLY | mg/dL | LAB | | | | HEMOLYZEDTesting | | | | | | performed at TCL, [address] | | | | | | [address], | | | | | | [place] [address] | | | | + + + + + + | BUN/Creatin | 19Comment: Testing | | EXTERNAL | | | ine Ratio | performed at TCL, [address] | | LAB | | | | [address], | | | | | | [place] [address] | | | | + + + + + + | Calcium | 9.5Comment: Testing | 8.5 - 10.5 | EXTERNAL | | | | performed at TCL, [address] | mg/dL | LAB | | | | [address], | | | | | | [place] [address] | | | | + + + + + + | Protein, | 7.5Comment: Testing | 6.3 - 8.2 g/dL | EXTERNAL | | | Total | performed at TC, [address] | | LAB | | | | [address], | | | | | | [place] [address] | | | | + + + + + + | Albumin | 3.6Comment: Testing | 3.3 - 4.8 g/dL | EXTERNAL | | | | performed at TC, [address] | | LAB | | | | [address], | | | | | | [place] [address] | | | | + + + + + + | Globulin | 3.9Comment: Testing | 1.3 - 4.9 g/dL | EXTERNAL | | | | performed at TC, [address] | | LAB | | | | [address], | | | | | | [place] [address] | | | | + + + + + + | A/G Ratio | 0.9 (L)Comment: Testing | 1.0 - 2.4 | EXTERNAL | | | | performed at TC, [address] | | LAB | | | | [address], | | | | | | [place] [address] | | | | + + + + + + | Bilirubin | 0.3Comment: SPECIMEN | 0.1 - 1.5 mg/dL | EXTERNAL | | | Total | SLIGHTLY | | LAB | | | | HEMOLYZEDTesting | | | | | | performed at TCL, [address] | | | | | | [address], | | | | | | [place] [address] | | | | + + + + + + | ALP, | 103Comment: Testing | 35 - 115 U/L | EXTERNAL | | | External | performed at TCL, [address] | | LAB | | | | [address], | | | | | | [place] [address] | | | | + + + + + + | AST | 13Comment: SPECIMEN | 10 - 45 U/L | EXTERNAL | | | | SLIGHTLY | | LAB | | | | HEMOLYZEDTesting | | | | | | performed at TCL, [address] | | | | | | [address], | | | | | | [place] [address] | | | | + + + + + + | ALT | 28Comment: SPECIMEN | 10 - 65 U/L | EXTERNAL | | | | SLIGHTLY | | LAB | | | | HEMOLYZEDTesting | | | | | | performed at [facility], [address] | | | | | | [address], | | | | | | [place] [address] | | | | + + + [...] | | | | | | at [facility], [address] | | | [address], | | | | | | [place] [address] | | | | + + + [...] | | | Fingerstick | performed at [facility];[address] | | LAB | | | | [address];[place], [place] | | | | | | [address] | | | | + + + [...] | | | | | performed at [facility], [address] | | | | | | [address], | | | | | | [place] [address] | | | | + + + [...] | | | Fingerstick | performed at [facility];[address] | | LAB | | | | [address];[place], [place] | | | | | | [address] | | | | + + + [...] | | | Fingerstick | performed at [facility];[address] | | LAB | | | | [address];[place] | | | | | | [address] | | | | + + + [...] EXTERNAL | | | | performed at [facility];[address] | mmol/L | LAB | | | | [address];[place], [place] | | | | | | [address] | | | | + + + [...] | | | Fingerstick | performed at [facility];[address] | | LAB | | | | [address];[place] | | | | | | [address] | | | | + + + [...] | | | Fingerstick | performed at [facility];[address] | | LAB | | | | [address];[place] | | | | | | [address] | | | | + + + [...] | | | | | [place] [address] | | | | + + + [...] | | | | | | at [facility], [address] | | | | | | [address], | | | | | | [place] [address] | | | | + + + [...] | | | | | performed at [facility], [address] | | | | | | [facility], | | | | | | [place] [address] | | | | + + [...] | | | Fingerstick | performed at [facility];[address] | | LAB | | | | [address];[place], [place] | | | | | | [address] | | | | + + + [...] | | | | | | at [facility];[address] [place] [address] | | | | | | [facility];[place] [address] | | | | + + + [...] K/uL | LAB | | | | [facility], [address] | | | | | | [place] | | | | | | [address] | | | | + + + + + + | RED CELL | 5.47 (H)Comment: Testing | 3.70 - 5.10 | EXTERNAL | | | COUNT | performed at [facility], [address] | M/uL | LAB | | | | [address] [place], | | | | | | [place] [address] | | | | + + + + + + | Hgb | 16.6 (H)Comment: Testing | 11.3 - 15.5 | EXTERNAL | | | | performed at TC, [address] | g/dL | LAB | | | | [address], | | | | | | [place] [address] | | | | + + + + + + | Hematocrit, | 50.0 (H)Comment: Testing | 34.0 - 46.0 % | EXTERNAL | | | POC | performed at [facility], [address] | | LAB | | | | [address], | | | | | | [place] [address] | | | | + + + + + + | MCV | 91.4Comment: Testing | 80.0 - 100.0 fl | EXTERNAL | | | | performed at TCL, [address] | | LAB | | | | [address], | | | | | | [place] [address] | | | | + + + + + + | MCH | 30.3Comment: Testing | 27.0 - 34.0 pg | EXTERNAL | | | | performed at TCL, [address] | | LAB | | | | [address], | | | | | | [place] [address] | | | | + + + + + + | MCHC | 33.1Comment: Testing | 32.0 - 35.5 | EXTERNAL | | | | performed at TCL, [address] | g/dL | LAB | | | | [address], | | | | | | [place] [address] | | | | + + + + + + | RDW-CV | 42.9Comment: Testing | 37 - 53 fl | EXTERNAL | | | | performed at TCL, [address] | | LAB | | | | [address], | | | | | | [place] [address] | | | | + + + + + + | Platelet | 328Comment: Testing | 150 - 400 K/uL | EXTERNAL | | | Count | performed at TCL, [address] | | LAB | | | Plasma | [address], | | | | | | [place] [address] | | | | + + + + + + | MPV | 8.8Comment: Testing | fl | EXTERNAL | | | | performed at TCL, [address] | | LAB | | | | [address], | | | | | | [place] [address] | | | | + + + + + + | Differentia | MANUALComment: Testing | | EXTERNAL | | | l Type | performed at TCL, [address] | | LAB | | | | [address], | | | | | | [place], [place] [address] | | | | + + + + + + | Segmented | 84Comment: Testing | % | EXTERNAL | | | Neutrophils | performed at TCL, [address] | | LAB | | | Manual | [address], | | | | | | [place], [place] [address] | | | | + + + + + + | % Bands | 6Comment: Testing | % | EXTERNAL | | | | performed at TCL, [address] | | LAB | | | | [address], | | | | | | [place], [place] [address] | | | | + + + + + + | Lymphocytes | 8Comment: Testing | % | EXTERNAL | | | Manual | performed at TCL, [address] | | LAB | | | | [address], | | | | | | [place] [address] | | | | + + + + + + | Monocytes | 2Comment: Testing | % | EXTERNAL | | | Manual | performed at TC, [address] | | LAB | | | | [address], | | | | | | [place] [address] | | | | + + + + + + | Absolute | 17.54 (H)Comment: | 1.90 - 7.40 | EXTERNAL | | | Neutrophils | Testing performed at | K/uL | LAB | | | | TCL, [address] | | | | | | [place] | | | | | | [address] | | | | + + + + + + | Bands | 1.25 (H)Comment: Testing | 0.00 - 0.20 | EXTERNAL | | | Manual | performed at TC, [address] | K/uL | LAB | | | | [address], | | | | | | [place] [address] | | | | + + + + + + | Absolute | 1.67Comment: Testing | 1.00 - 3.90 | EXTERNAL | | | Lymphocytes | performed at TCL, [address] | K/uL | LAB | | | | [address], | | | | | | [place] [address] | | | | + + + + + + | Absolute | 0.42Comment: Testing | 0.00 - 0.80 | EXTERNAL | | | Monocytes | performed at TCL, [address] | K/uL | LAB | | | | [address], | | | | | | [place] [address] | | | | + + + + + + | RBC | RBC AND PLT MORPHOLOGY | | EXTERNAL | | | Morphology | APPEAR NORMALComment: | | LAB | | | | Testing performed at | | | | | | TCL, [address] | | | | | | [place] | | | | | | [address] | | | | + + + [...] | | | | | performed at [facility], [address] | | | | | | [address], | | | | | | [place] [address] | | | | + + + [...] | | | | | performed at [facility], [address] | | | | | | [facility], | | | | | | [place] [address] | | | | + + + [...] | EXTERNAL | | | A1c | Maur[place] Diabetes | | LAB | | | [...] | | | | | performed at [facility], [address] | | | | | | [address] [facility], | | | | | | [place] [address] | | | | + + + [...] | | | | | performed at [facility], [address] | | | | | | [facility], | | | | | | [place] [address] | | | | + + + [...] | | | | | [place] [address] | | | | + + + + + + | K | 3.7Comment: SPECIMEN | 3.5 - 4.9 | EXTERNAL | | | | SLIGHTLY | mmol/L | LAB | | | | HEMOLYZEDTesting | | | | | | performed at TCL, [address] | | | | | | [address], | | | | | | [place] [address] | | | | + + + + + + | Cl | 97 (L)Comment: Testing | 99 - 109 mmol/L | EXTERNAL | | | | performed at TCL, [address] | | LAB | | | | [address], | | | | | | [place] [address] | | | | + + + + + + | CO2 | 23Comment: Testing | 23 - 32 mmol/L | EXTERNAL | | | | performed at TCL, [address] | | LAB | | | | [address], | | | | | | [place] [address] | | | | + + + + + + | Anion Gap | 19Comment: Testing | 5 - 20 mmol/L | EXTERNAL | | | | performed at TCL, [address] | | LAB | | | | [address], | | | | | | [place] [address] | | | | + + + [...] | | | | | [place] [address] | | | | + + + + + + | BUN | 14Comment: Testing | 8 - 25 mg/dL | EXTERNAL | | | | performed at TCL, [address] | | LAB | | | | [address], | | | | | | [place] [address] | | | | + + + + + + | Creatinine | 0.8Comment: SPECIMEN | 0.50 - 1.00 | EXTERNAL | | | | SLIGHTLY | mg/dL | LAB | | | | HEMOLYZEDTesting | | | | | | performed at TCL, [address] | | | | | | [address], | | | | | | [place] [address] | | | | + + + + + + | BUN/Creatin | 18Comment: Testing | | EXTERNAL | | | ine Ratio | performed at TCL, [address] | | LAB | | | | [address], | | | | | | [place] [address] | | | | + + + + + + | Calcium | 10.7 (H)Comment: Testing | 8.5 - 10.5 | EXTERNAL | | | | performed at TCL, [address] | mg/dL | LAB | | | | [address], | | | | | | [place] [address] | | | | + + + [...] [place], | | | | | | [place] [address] | | | | + + + [...] | | | Fingerstick | performed at [facility];[address] | | LAB | | | | [address];[place], [place] | | | | | | [address] | | | | + + + [...] (500), | | | | | | makeup editor ATUL TIPTON | | | | | | (125) on 11/16/2015 | | | | | | 5:04:05 AM | | | | + + + + + + + + | Specimen | + + | | + + + + + | Narrative | Performed At | + + + | Historically converted procedure from [facility] Epic environment | EXTERNAL LAB | + [...] | | LAB | | | | [facility];[address] [facility] | | | | | | [place] [address] | | | | + + + + + + | Clarity | CLEARComment: Testing | | EXTERNAL | | | | performed at [facility];[address] | | LAB | | | | [address];[place] | | | | | | [address] | | | | + + + + + + | Specific | 1.015Comment: Testing | 1.002 - 1.030 | EXTERNAL | | | Lacey | performed at [facility];[address] | | LAB | | | | [address];[place] | | | | | | [address] | | | | + + + + + + | Leukocyte | NEGATIVEComment: Testing | | EXTERNAL | | | Esterase, | performed at [facility];[address] | | LAB | | | Urine | [address];[place] | | | | | | [address] | | | | + + + + + + | Nitrite, | NEGATIVEComment: Testing | | EXTERNAL | | | Urine | performed at [facility];[address] | | LAB | | | | [address];[place] | | | | | | [address] | | | | + + + + + + | Urobilinoge | NORMALComment: Testing | mg/dL | EXTERNAL | | | n, Urine | performed at [facility];[address] | | LAB | | | | [address];[place] | | | | | | [address] | | | | + + + + + + | Protein, | NEGATIVEComment: Testing | mg/dL | EXTERNAL | | | Urine | performed at [facility];[address] | | LAB | | | | [address];[place] | | | | | | [address] | | | | + + + + + + | pH, Urine | 8.0Comment: Testing | 5.0 - 8.0 | EXTERNAL | | | | performed at [facility];[address] | | LAB | | | | [address];[place] | | | | | | [address] | | | | + + + + + + | Blood, | SMALL (A)Comment: | | EXTERNAL | | | Urine | Testing performed at | | LAB | | | | [facility];[address];[place] [address] | | | | + + + + + + | Ketones | TRACE (A)Comment: | mg/dL | EXTERNAL | | | | Testing performed at | | LAB | | | | [facility];[address];[place] [address] | | | | + + + + + + | Bilirubin, | NEGATIVEComment: Testing | | EXTERNAL | | | Urine | performed at [facility];[address] | | LAB | | | | [address];[place] | | | | | | [address] | | | | + + + + + + | Glucose, | >500 (A)Comment: Testing | mg/dL | EXTERNAL | | | Urine | performed at [facility];[address] | | LAB | | | | [address];[place] | | | | | | [address] | | | | + + + + + + | WBC, UA | 0-2Comment: Testing | 0 - 5 /hpf | EXTERNAL | | | | performed at [facility];[address] | | LAB | | | | [address];[place] | | | | | | [address] | | | | + + + + + + | RBC, UA | 3-5Comment: Testing | 0 - 5 /hpf | EXTERNAL | | | | performed at [facility];[address] | | LAB | | | | [address];[place] | | | | | | [address] | | | | + + + + + + | Bacteria, | NONE SEENComment: | | EXTERNAL | | | UA | Testing performed at | | LAB | | | | [facility];[address];[place] [address] | | | | + + + + + + | Epithelial | 3-5Comment: Testing | /lpf | EXTERNAL | | | Cells | performed at [facility];[address] | | LAB | | | | [address];[place], [place] | | | | | | [address] | | | | + + + [...] 1:24AM | | | Referring Provider Line: [phone] ID: [id number] | | + + + [...] Nov 16 2015 1:24AM Referring Provider Line: [phone] ID: [id number] | |Spleen: Small lenticular subcapsular [...] 16 2015 1:24AM Referring Provider Line: [phone] ID: [id number] | + + External Lab: [...] K/uL | LAB | | | | [facility];[address];[place] [address] | | | | + + + + + + | RED CELL | 5.46 (H)Comment: Testing | 3.70 - 5.10 | EXTERNAL | | | COUNT | performed at [facility];[address] | M/uL | LAB | | | | [address];[place] | | | | | | [address] | | | | + + + + + + | Hgb | 16.9 (H)Comment: Testing | 11.3 - 15.5 | EXTERNAL | | | | performed at [facility];[address] | g/dL | LAB | | | | [address];[place] | | | | | | [address] | | | | + + + + + + | Hematocrit, | 50.3 (H)Comment: Testing | 34.0 - 46.0 % | EXTERNAL | | | POC | performed at [facility];[address] | | LAB | | | | [address];[place] | | | | | | [address] | | | | + + + + + + | MCV | 92.2Comment: Testing | 80.0 - 100.0 fl | EXTERNAL | | | | performed at [facility];[address] | | LAB | | | | [address];[place] | | | | | | [address] | | | | + + + + + + | MCH | 30.9Comment: Testing | 27.0 - 34.0 pg | EXTERNAL | | | | performed at [facility];[address] | | LAB | | | | [address];[place] | | | | | | [address] | | | | + + + + + + | MCHC | 33.5Comment: Testing | 32.0 - 35.5 | EXTERNAL | | | | performed at [facility];[address] | g/dL | LAB | | | | [address];[place] | | | | | | [address] | | | | + + + + + + | RDW-CV | 41.1Comment: Testing | 37 - 53 fl | EXTERNAL | | | | performed at [facility];[address] | | LAB | | | | [address];[place] | | | | | | [address] | | | | + + + + + + | Platelet | 342Comment: Testing | 150 - 400 K/uL | EXTERNAL | | | Count | performed at [facility];[address] | | LAB | | | Plasma | [address];[place] | | | | | | [address] | | | | + + + + + + | MPV | 8.3Comment: Testing | fl | EXTERNAL | | | | performed at [facility];[address] | | LAB | | | | [address];[place] | | | | | | [address] | | | | + + + + + + | Differentia | AUTOMATEDComment: | | EXTERNAL | | | l Type | Testing performed at | | LAB | | | | [facility];[address];[place] [address] | | | | + + + + + + | % Segmented | 77.97Comment: Testing | % | EXTERNAL | | | | performed at [facility];[address] | | LAB | | | Neutrophils | [address];[place] | | | | | | [address] | | | | + + + + + + | % | 16.10Comment: Testing | % | EXTERNAL | | | Lymphocytes | performed at [facility];[address] | | LAB | | | | [address];[place] | | | | | | [address] | | | | + + + + + + | % Monocytes | 4.68Comment: Testing | % | EXTERNAL | | | | performed at [facility];[address] | | LAB | | | | [address];[place] | | | | | | [address] | | | | + + + + + + | % | 0.09Comment: Testing | % | EXTERNAL | | | Eosinophils | performed at [facility];[address] | | LAB | | | | [address];[place] | | | | | | [address] | | | | + + + + + + | % Basophils | 1.16Comment: Testing | % | EXTERNAL | | | | performed at [facility];[address] | | LAB | | | | [address];[place] | | | | | | [address] | | | | + + + + + + | Absolute | 12.04 (H)Comment: | 1.90 - 7.40 | EXTERNAL | | | Segmented | Testing performed at | K/uL | LAB | | | Neutrophils | [facility];[address];[place] [address] | | | | + + + + + + | Absolute | 2.49Comment: Testing | 1.00 - 3.90 | EXTERNAL | | | Lymphocytes | performed at [facility];[address] | K/uL | LAB | | | | [address];[place] | | | | | | [address] | | | | + + + + + + | Absolute | 0.72Comment: Testing | 0.00 - 0.80 | EXTERNAL | | | Monocytes | performed at [facility];[address] | K/uL | LAB | | | | [address];[place] | | | | | | [address] | | | | + + + + + + | Absolute | 0.01Comment: Testing | 0.00 - 0.50 | EXTERNAL | | | Eosinophils | performed at [facility] [facility];[address] | K/uL | LAB | | | | [address];[place] | | | | | | [address] | | | | + + + + + + | Absolute | 0.18 (H)Comment: Testing | 0.00 - 0.10 | EXTERNAL | | | Basophils | performed at [facility];888 | K/uL | LAB | | | | [address];[place] | | | | | | [address] | | | | + + + [...] EXTERNAL | | | | performed at [facility];888 | | LAB | | | | [address];[place], [place] | | | | | | [address] | | | | + + + [...] EXTERNAL | | | | performed at [facility];8 | | LAB | | | | [facility];[place], [place] | | | | | | [address] | | | | + + + [...] EXTERNAL | | | | performed at [facility];888 | mmol/L | LAB | | | | [address];[place], [place] | | | | | | [address] | | | | + + + [...] EXTERNAL | | | | performed at [facility];888 | mmol/L | LAB | | | | [address];[place] | | | | | | [address] | | | | + + + + + + | K | 3.7Comment: SLT | 3.5 - 4.9 | EXTERNAL | | | | HEMOLYSISTesting | mmol/L | LAB | | | | performed at [facility];[address] | | | | | | [address];[place] | | | | | | [address] | | | | + + + + + + | Cl | 97 (L)Comment: Testing | 99 - 109 mmol/L | EXTERNAL | | | | performed at [facility];[address] | | LAB | | | | [address];[place] | | | | | | [address] | | | | + + + + + + | CO2 | 28Comment: Testing | 23 - 32 mmol/L | EXTERNAL | | | | performed at [facility];[address] | | LAB | | | | [address];[place] | | | | | | [address] | | | | + + + + + + | Anion Gap | 10Comment: Testing | 5 - 20 mmol/L | EXTERNAL | | | | performed at [facility];[address] | | LAB | | | | [address];[place] | | | | | | [address] | | | | + + + + + + | Glucose, | 377 (H)Comment: Testing | 65 - 99 mg/dL | EXTERNAL | | | Fasting | performed at [facility];[address] | | LAB | | | | [address];[place] | | | | | | [address] | | | | + + + + + + | BUN | 15Comment: Testing | 8 - 25 mg/dL | EXTERNAL | | | | performed at [facility];[address] | | LAB | | | | [address];[place] | | | | | | [address] | | | | + + + + + + | Creatinine | 0.92Comment: Testing | 0.50 - 1.00 | EXTERNAL | | | | performed at [facility];888 | mg/dL | LAB | | | | [address];[place] | | | | | | [address] | | | | + + + + + + | BUN/Creatin | 17Comment: Testing | | EXTERNAL | | | ine Ratio | performed at [facility];[address] | | LAB | | | | [address];[place] | | | | | | [address] | | | | + + + + + + | Calcium | 10.9 (H)Comment: Testing | 8.5 - 10.5 | EXTERNAL | | | | performed at [facility];888 | mg/dL | LAB | | | | [address];[place] | | | | | | [address] | | | | + + + + + + | Protein, | 8.8 (H)Comment: Testing | 6.3 - 8.2 g/dL | EXTERNAL | | | Total | performed at [facility];[address] | | LAB | | | | [address];[place] | | | | | | [address] | | | | + + + + + + | Albumin | 4.3Comment: Testing | 3.3 - 4.8 g/dL | EXTERNAL | | | | performed at [facility];[address] | | LAB | | | | [address];[place] | | | | | | [address] | | | | + + + + + + | Globulin | 4.5Comment: Testing | 1.3 - 4.9 g/dL | EXTERNAL | | | | performed at [facility];[address] | | LAB | | | | [address];[place] | | | | | | [address] | | | | + + + + + + | A/G Ratio | 1.0Comment: Testing | 1.0 - 2.4 | EXTERNAL | | | | performed at [facility];[address] | | LAB | | | | [address];[place] | | | | | | [address] | | | | + + + + + + | Bilirubin | 0.3Comment: Testing | 0.1 - 1.5 mg/dL | EXTERNAL | | | Total | performed at [facility];[address] | | LAB | | | | [address];[place] | | | | | | [address] | | | | + + + + + + | ALP, | 159 (H)Comment: Testing | 35 - 115 U/L | EXTERNAL | | | External | performed at [facility];[address] | | LAB | | | | [address];[place] | | | | | | [address] | | | | + + + + + + | AST | 18Comment: SLT | 10 - 45 U/L | EXTERNAL | | | | HEMOLYSISTesting | | LAB | | | | performed at [facility];[address] | | | | | | [address];[place] | | | | | | [address] | | | | + + + + + + | ALT | 34Comment: Testing | 10 - 65 U/L | EXTERNAL | | | | performed at [facility];[address] | | LAB | | | | [address];[place] | | | | | | [address] | | | | + + + [...] | | | | | | at [facility];[address] | | [address];[place] [address] | | | | + + + [...]
--- OUTSIDE RECORDS SUMMARY | ~2019-04-09 | XMS | Encounter Summary ---
Demographics + + + | Address | [address] | | | [place] [address] | + + + | Home Phone | | + + + | Preferred Language | Unknown | + + + | Marital Status | | + + + | Mormonism Affiliation | Unknown | + + + | Race | Unknown | + + + | Ethnic Group | Unknown | + + + Author + + + | Author | [facility] | | | and [place] | + + + | Organization | [facility] | | | [...] Team Providers + +------+ + | Care Logging Equipment Mechanic Name | Role | Phone | + +------+ + PCP | Unavailable | + +------+ + Encounter Details +--------+ + + + + | Date | Type | Department | Care Team | Description | +--------+ + + + + | 09/03/ | Hospital | [facility] | Conversion | Preop examination; | | 2015 | Encounter | [facility]ENTER | Transaction, | Chronic ischemic | | | | NUCLEAR MEDICINE | Provider Unknown | heart disease; | | | | [address] | | Personal history of | | | | [place], [place] | (Fax) | tobacco use | | | | [address] | | | | | | [phone] | | | +--------+ + + + [...] | + +--------+ + + + | NM MYOCARDIAL | Routin | 09/04/2015 | | Results for this | | PERFUSION MULT SPECT | e | 12:29 PM | | procedure are in the | | | | PDT | | results section. | + +--------+ + + + documented in this encounter Results NM Myocardial Perfusion Mult SPECT (09/04/2015 12:29 PM PDT) + + | Specimen | + + | | + + + + + | Narrative | Performed At | + + + | | | | | | | DATE OF SERVICE September 04, 2015 HISTORY Mrs. Whit Hurt is a | | | pleasant 60-year-old white female who had a stent placed in her right | | | coronary artery by Dr. Juan in 2002. The patient is going to | | | have cervical spine surgery. The patient is a long time smoker. | | | DESCRIPTION OF PROCEDURE The patient received Lexiscan per protocol. | | | Her resting heart rate of 80 beats per minute whit to a maximum heart | | | rate of 125 beats per minute. The blood pressure of 147/87, | | | increased to 210/108 beats per minute at peak infusion. The patient's | | | baseline EKG showed normal sinus rhythm, normal axis with no acute | | | changes. During the infusion there were no significant ST elevations | | | or depressions noted. MYOCARDIAL PERFUSION The images are | | | adequate for interpretation. There was hypoperfusion that was noted | | | at rest and stress, that was more pronounced at stress. With prone | | | imaging, the hypoperfusion inferior wall was noted to be similar to | | | the rest images. There was no significant evidence of ischemia. TID | | | 1.07. GATED IMAGES 1. The rest EDV was 71 mL. 2. The rest ESV | | | was 29 mL. 3. The rest ejection fraction was 59%. 4. The stress EDV | | | was 75 mL. 5. The stress ESV was 27 mL. 6. The stress ejection | | | fraction was 63%. PROCEDURELexiscan myocardial perfusion scan, and | | | 10 mCi of 99m Technetium Cardiolite was given intravenously for the | | | rest images, and 43 mCi of 99m Technetium Cardiolite was given for | | | the stress images. CONCLUSION 1. Normal Lexiscan myocardial | | | perfusion scan. 2. Minimal hypoperfusion of the inferior wall at rest | | | and stress, consistent with the patient's previous myocardial | | | infarction in 2002, and stent placement. 3. Baseline EKG appears | | | normal. 4. The patient would be a candidate for surgery in light of | | | her myocardial perfusion scan that does not show any significant | | | ischemia. Read by YOKASTA RICH MD 09/05/2015 10:29 A | | | | | + + + + + | Procedure Note | + + | Niraj Lepe Conversion - 11/23/2018 9:09 AM PDT | | | | DATE OF SERVICE | | September 04, 2015 | | | | HISTORY | | Mrs. Whit Hurt is a pleasant 60-year-old white female who had a stent | | placed in her right coronary artery by Dr. Juan in 2002. The patient | | is going to have cervical spine surgery. The patient is a long time | | smoker. | | | | DESCRIPTION OF PROCEDURE | | The patient received Lexiscan per protocol. Her resting heart rate of 80 | | beats per minute whit to a maximum heart rate of 125 beats per minute. The | | blood pressure of 147/87, increased to 210/108 beats per minute at peak | | infusion. The patient's baseline EKG showed normal sinus rhythm, normal | | axis with no acute changes. During the infusion there were no significant | | ST elevations or depressions noted. | | | | MYOCARDIAL PERFUSION | | The images are adequate for interpretation. There was hypoperfusion that | | was noted at rest and stress, that was more pronounced at stress. With | | prone imaging, the hypoperfusion inferior wall was noted to be similar to | | the rest images. There was no significant evidence of ischemia. TID 1.07. | | | | GATED IMAGES | | 1. The rest EDV was 71 mL. | | 2. The rest ESV was 29 mL. | | 3. The rest ejection fraction was 59%. | | 4. The stress EDV was 75 mL. | | 5. The stress ESV was 27 mL. | | 6. The stress ejection fraction was 63%. | | | | PROCEDURELexiscan myocardial perfusion scan, and 10 mCi of 99m Technetium | | Cardiolite was given intravenously for the rest images, and 43 mCi of 99m | | Technetium Cardiolite was given for the stress images. | | | | CONCLUSION | | 1. Normal Lexiscan myocardial perfusion scan. | | 2. Minimal hypoperfusion of the inferior wall at rest and stress, | | consistent with the patient's previous myocardial infarction in 2002, | | and stent placement. | | 3. Baseline EKG appears normal. | | 4. The patient would be a candidate for surgery in light of her myocardial | | perfusion scan that does not show any significant ischemia. | | | | Read by YOKASTA RICH MD 09/05/2015 10:29 A | | | | | + + documented in this encounter Visit Diagnoses + + | Diagnosis | + + | Preop examination Preoperative examination, unspecified | + + | Chronic ischemic heart disease Chronic ischemic heart disease, unspecified | + + | Personal history of tobacco use Personal history of tobacco use, presenting hazards | | to health | + + documented in this encounter"
--- OUTSIDE RECORDS SUMMARY | ~2019-04-09 | XMS | Encounter Summary ---
Demographics + + + | Address | [address] | | | [place] [address] | + + + | Home Phone | | + + + | Preferred Language | Unknown | + + + | Marital Status | | + + + | Quaker Affiliation | Unknown | + + + | Race | Unknown | + + + | Ethnic Group | Unknown | + + + Author + + + | Author | [facility] | | | and [place] | + + + | Organization | [facility] | | | and [place] [...] Team Providers + +------+ + | Care Computer Discovery Teacher Name | Role | Phone | + +------+ + PCP | Unavailable | + +------+ + Encounter Details +--------+ + + + + | Date | Type | Department | Care Team | Description | +--------+ + + + + | 06/01/ | Hospital | [facility] | Patricia Oden, | Colon cancer | | 2017 | Encounter | [facility] | [address] | screening | | | | INTRA [address] | [address] [facility] | | | | | [place], [place] | [place] [address] | | | | | [address] | [phone] | | | | | [phone] | | | +--------+ + + + [...] submitted in | | | cassette C1. FAM:[facility] PERFORMING LABORATORY: Professional | | | interpretation and technical preparation was performed by [facility] | | | [facility], [address], | | | [place] [address] (Certified Industrial Hygienist: iVnh Leal M.D.; IA#: | | | [id number]). Diagnostician: Samuel Venegas MD Pathologist | | [...] | | | Fingerstick | performed at [facility];888 | | LAB | | | | [address];[place], [place] | | | | | | [address] | | | | + + + [...]
--- OUTSIDE RECORDS SUMMARY | ~2019-04-09 | XMS | Encounter Summary ---
Demographics + + + | Address | [address] | | | [place] [address] | + + + | Home Phone | | + + + | Preferred Language | Unknown | + + + | Marital Status | | + + + | Congregation Affiliation | Unknown | + + + | Race | Unknown | + + + | Ethnic Group | Unknown | + + + Author + + + | Author | [facility] | | | and [place] | + + + | Organization | [facility] | | | and [place] | + [...] Team Providers + +------+ + | Care Triage Nurse Name | Role | Phone | + +------+ + PCP | Unavailable | + +------+ + Encounter Details +--------+ + + + + | Date | Type | Department | Care Team | Description | +--------+ + + + + | 11/25/ | Hospital | [facility] | Conversion | | | 2016 | Encounter | [facility] | Transaction, | | | | | SERVICES [address] | Provider Unknown | | | | | [place] | | | | | | [address] | (Fax) | | | | | [phone] | | | +--------+ + + + [...] + + + | Blood Pressure | - | - | | + + + + + | Pulse | - | - | | + [...] + + + + | Weight | 89.4 kg (197 lb) | 11/26/2015 12:17 PM | | | | | PDT | | + + + + + | Height | 165.1 cm (5' 5") | 11/26/2015 12:17 PM | | | | | PDT | | + + + + + | Body Mass Index | 32.78 | 11/26/2015 12:17 PM | | | | | PDT | | + + + + + documented in this encounter Progress Notes Heidi Cortés RN - 11/26/2015 11:00 AM PDT Progress Notes by Heidi Cortés RN, CDE at 11/26/15 1100 Author: Heidi Cortés RN, CDE Service: (none) Author Type: Tin Roofer Filed: 11/26/15 1230 Date of Service: 11/26/15 1100 Status: Signed Silverware Assembler: Heidi Cortés RN, CDE (Tin Roofer) Progress note for general diabetes (individual) REASON FOR VISIT: Individual education to manage Type 2 diabetes (insulin-treated) SUBJECTIVE: Whit Guerin" is here today for her first education visit. She states she has had pre-diabetes for 1-2 years and was recently told she has full-blown diabetes when she wa s in the hospital for gastritis. She was sent home on insulin and will be seeing her PCP (Lynne Lowry in [place]) on 12/16/15. OBJECTIVE: Wt Readings from Last 1 Encounters: 11/26/15 89.359 kg (197 lb) Ht Readings from Last 1 Encounters: 11/26/15 1.651 m (5' 5") Estimated body mass index is 32.78 kg/(m^2) as calculated from the following: Height as of this encounter: 1.651 m (5' 5"). Weight as of this encounter: 89.359 kg (197 lb). Blood Glucose Values Range fasting B-128 Range post-prandial B-228 A1c: 10.2 (lab) DIABETES MEDICATIONS: Novolog 70/30 15 units before breakfast and dinner (starting today, previously taking Lantu s only) ASSESSMENT: Reyna is in the preparation stage of readiness for diabetes self-management. She has a One Touch Ultra2 meter and is checking BGs before and after breakfast and dinn er. She has only been home from the hospital for a couple of days. FBGs have been within ta rget range. Postprandial BGs are often elevated. Reyna was given a Lantus pen when she left the hospital and has been taking this rather than the Novolog 70/30 that was prescribed, thus her postprandial BGs may come down when she starts the new insulin. She stays active at work but does not participate in a formal exercise program. INTERVENTION: Educational topics discussed: Disease process, Nutrition, Exercise & activity, Medication, Monitoring, Chronic complications, Goal setting & problem solving and A1c Explored Reyna's current self-goals and answered her questions. Used Diabetes packet to discuss the basics of Type 2 DM. Reviewed insulin administration in detail and Reyna performed a return demonstration wit h an insulin pen. Discussed timing, dosing, action, and storage for her insulin. Explained the effects of carbohydrates on BGs and discussed meal planning and carbohydra te counting. Reviewed A1c and BG targets. See education record for further topics discussed. SELF-SELECTED GOALS: Goal: Healthy Eating Nutrition Goal: Yes Follow meal plan: New [facility] Resource List (handouts) Class Packets: Insulin Packet PLAN: Whit will return for follow-up on 12/24/15. Encouraged her to contact us in the meantime wi th any questions or concerns. Heidi Cortés RN, CDE Wash Driller Helper 11/26/2015 12:29 PM documented in th is encounter Plan of Treatment Not on filedocumented as of this encounter Visit Diagnoses Not on filedocumented in this encounter
--- OUTSIDE RECORDS SUMMARY | ~2019-04-09 | XMS | Encounter Summary ---
Demographics + + + | Address | [address] | | | [place] [address] | + + + | Home Phone | | + + + | Preferred Language | Unknown | + + + | Marital Status | | + + + | Christianity Affiliation | Unknown | + + + | Race | Unknown | + + + | Ethnic Group | Unknown | + + + Author + + + | Author | [facility] | | | and [place] | + + + | Organization | [facility] | | | and [place] [...] Team Providers + +------+ + | Care Varsity Baseball Coach Name | Role | Phone | + +------+ + PCP | Unavailable | + +------+ + Encounter Details +--------+ + + + + | Date | Type | Department | Care Team | Description | +--------+ + + + + | 04/04/ | Emergency | [facility] | Avtar Ellis MD | Elevated blood | | 2016 - | | MEDICAL CENTER | [address] | pressure; | | | | EMERGENCY CENTER | [place] [address] | Generalized | | 04/05/ | | [address] | [phone] | abdominal pain; | | 2015 | | [place], [place] | | Non-intractable | | | | [address] | | vomiting with | | | | [phone] | | nausea, unspecified | | | [...] EXTERNAL | | | | performed at [facility];[address] | | LAB | | | | [address];[place] | | | | | | [address] | | | | + + + + + + | Clarity | CLEARComment: Testing | | EXTERNAL | | | | performed at [facility];[address] | | LAB | | | | [address];[place] | | | | | | [address] | | | | + + + + + + | Specific | 1.015Comment: Testing | 1.002 - 1.030 | EXTERNAL | | | [place] | performed at [facility];[address] | | LAB | | | | [address];[place] | | | | | | [address] | | | | + + + + + + | Leukocyte | NEGATIVEComment: Testing | | EXTERNAL | | | Esterase, | performed at [facility];[address] | | LAB | | | Urine | [address];[place] | | | | | | [address] | | | | + + + + + + | Nitrite, | NEGATIVEComment: Testing | | EXTERNAL | | | Urine | performed at [facility];[address] | | LAB | | | | [address];[place] | | | | | | [address] | | | | + + + + + + | Urobilinoge | NORMALComment: Testing | mg/dL | EXTERNAL | | | n, Urine | performed at [facility];[address] | | LAB | | | | [address];[place] | | | | | | [address] | | | | + + + + + + | Protein, | >500 (A)Comment: Testing | mg/dL | EXTERNAL | | | Urine | performed at [facility];[address] | | LAB | | | | [address];[place] | | | | | | [address] | | | | + + + + + + | pH, Urine | 7.0Comment: Testing | 5.0 - 8.0 | EXTERNAL | | | | performed at [facility];[address] | | LAB | | | | [address];[place] | | | | | | [address] | | | | + + + + + + | Blood, | SMALL (A)Comment: | | EXTERNAL | | | Urine | Testing performed at | | LAB | | | | [facility];[address];[place] [address] | | | | + + + + + + | Ketones | 20 (A)Comment: Testing | mg/dL | EXTERNAL | | | | performed at [facility];[address] | | LAB | | | | [address];[place] | | | | | | [address] | | | | + + + + + + | Bilirubin, | NEGATIVEComment: Testing | | EXTERNAL | | | Urine | performed at [facility];[address] | | LAB | | | | [address];[place] | | | | | | [address] | | | | + + + + + + | Glucose, | >500 (A)Comment: Testing | mg/dL | EXTERNAL | | | Urine | performed at [facility];[address] | | LAB | | | | [address];[place] | | | | | | [address] | | | | + + + + + + | WBC, UA | 3-5Comment: Testing | 0 - 5 /hpf | EXTERNAL | | | | performed at [facility];[address] | | LAB | | | | [address];[place] | | | | | | [address] | | | | + + + + + + | RBC, UA | 11-15Comment: Testing | 0 - 5 /hpf | EXTERNAL | | | | performed at [facility];[address] | | LAB | | | | [address];[place] | | | | | | [address] | | | | + + + + + + | Bacteria, | 1+ (A)Comment: Testing | | EXTERNAL | | | UA | performed at [facility];[address] | | LAB | | | | [address];[place] | | | | | | [address] | | | | + + + + + + | Epithelial | 16-25Comment: Testing | /lpf | EXTERNAL | | | Cells | performed at [facility];[address] | | LAB | | | | [address];[place] | | | | | | [address] | | | | + + + + + + | MUCUS UA | 1+Comment: Testing | | EXTERNAL | | | | performed at [facility];[address] | | LAB | | | | [address];[place] | | | | | | [address] | | | | + + + [...] EXTERNAL | | | | performed at [facility];[address] | mmol/L | LAB | | | | [address];[place], [place] | | | | | | [address] | | | | + + + [...] K/uL | LAB | | | | [facility];[address];[place] [address] | | | | + + + + + + | RED CELL | 6.14 (H)Comment: Testing | 3.70 - 5.10 | EXTERNAL | | | COUNT | performed at [facility];[address] | M/uL | LAB | | | | [address];[place] | | | | | | [address] | | | | + + + + + + | Hgb | 18.7 (H)Comment: Testing | 11.3 - 15.5 | EXTERNAL | | | | performed at [facility];[address] | g/dL | LAB | | | | [address];[place] | | | | | | [address] | | | | + + + + + + | Hematocrit, | 55.1 (H)Comment: Testing | 34.0 - 46.0 % | EXTERNAL | | | POC | performed at [facility];[address] | | LAB | | | | [address];[place] | | | | | | [address] | | | | + + + + + + | MCV | 89.8Comment: Testing | 80.0 - 100.0 fl | EXTERNAL | | | | performed at [facility];[address] | | LAB | | | | [address];[place] | | | | | | [address] | | | | + + + + + + | MCH | 30.5Comment: Testing | 27.0 - 34.0 pg | EXTERNAL | | | | performed at [facility];[address] | | LAB | | | | [address];[place] | | | | | | [address] | | | | + + + + + + | MCHC | 34.0Comment: Testing | 32.0 - 35.5 | EXTERNAL | | | | performed at [facility];888 | g/dL | LAB | | | | [address];[place] | | | | | | [address] | | | | + + + + + + | RDW-CV | 42.9Comment: Testing | 37 - 53 fl | EXTERNAL | | | | performed at [facility];[address] | | LAB | | | | [address];[place] | | | | | | [address] | | | | + + + + + + | Platelet | 364Comment: Testing | 150 - 400 K/uL | EXTERNAL | | | Count | performed at [facility];[address] | | LAB | | | Plasma | [address];[place] | | | | | | [address] | | | | + + + + + + | MPV | 8.1Comment: Testing | fl | EXTERNAL | | | | performed at [facility];[address] | | LAB | | | | [address];[place] | | | | | | [address] | | | | + + + + + + | Differentia | MANUALComment: Testing | | EXTERNAL | | | l Type | performed at [facility];[address] | | LAB | | | | [address];[place] | | | | | | [address] | | | | + + + + + + | Segmented | 81Comment: Testing | % | EXTERNAL | | | Neutrophils | performed at [facility];[address] | | LAB | | | Manual | [address];[place] | | | | | | [address] | | | | + + + + + + | % Bands | 1Comment: Testing | % | EXTERNAL | | | | performed at [facility];[address] | | LAB | | | | [address];[place] | | | | | | [address] | | | | + + + + + + | Lymphocytes | 12Comment: Testing | % | EXTERNAL | | | Manual | performed at [facility];[address] | | LAB | | | | [address];[place] | | | | | | [address] | | | | + + + + + + | Monocytes | 6Comment: Testing | % | EXTERNAL | | | Manual | performed at [facility];[address] | | LAB | | | | [address];[place] | | | | | | [address] | | | | + + + + + + | Absolute | 11.98 (H)Comment: | 1.90 - 7.40 | EXTERNAL | | | Neutrophils | Testing performed at | K/uL | LAB | | | | [facility];[address];[place] [address] | | | | + + + + + + | Bands | 0.15Comment: Testing | 0.00 - 0.20 | EXTERNAL | | | Manual | performed at [facility];[address] | K/uL | LAB | | | | [address];[place] | | | | | | [address] | | | | + + + + + + | Absolute | 1.78Comment: Testing | 1.00 - 3.90 | EXTERNAL | | | Lymphocytes | performed at [facility];[address] | K/uL | LAB | | | | [address];[place] | | | | | | [address] | | | | + + + + + + | Absolute | 0.89 (H)Comment: Testing | 0.00 - 0.80 | EXTERNAL | | | Monocytes | performed at [facility];[address] | K/uL | LAB | | | | [address];[place] | | | | | | [address] | | | | + + + + + + | RBC | RBC AND PLT MORPHOLOGY | | EXTERNAL | | | Morphology | APPEAR NORMALComment: | | LAB | | | | Testing performed at | | | | | | [facility];[address];[place] [address] | | | | + + + [...] EXTERNAL | | | | performed at [facility];[address] | | LAB | | | | [address];[place], [place] | | | | | | [address] | | | | + + + [...] EXTERNAL | | | | performed at [facility];[address] | mmol/L | LAB | | | | [address];[place] | | | | | | [address] | | | | + + + + + + | K | 3.9Comment: MODERATE | 3.5 - 4.9 | EXTERNAL | | | | HEMOLYSISTesting | mmol/L | LAB | | | | performed at [facility];[address] | | | | | | [address];[place] | | | | | | [address] | | | | + + + + + + | Cl | 97 (L)Comment: Testing | 99 - 109 mmol/L | EXTERNAL | | | | performed at [facility];[address] | | LAB | | | | [address];[place] | | | | | | [address] | | | | + + + + + + | CO2 | 23Comment: Testing | 23 - 32 mmol/L | EXTERNAL | | | | performed at [facility];[address] | | LAB | | | | [address];[place] | | | | | | [address] | | | | + + + + + + | Anion Gap | 18Comment: Testing | 5 - 20 mmol/L | EXTERNAL | | | | performed at [facility];[address] | | LAB | | | | [address];[place] | | | | | | [address] | | | | + + + + + + | Glucose, | 231 (H)Comment: Testing | 65 - 99 mg/dL | EXTERNAL | | | Fasting | performed at [facility];[address] | | LAB | | | | [address];[place] | | | | | | [address] | | | | + + + + + + | BUN | 11Comment: Testing | 8 - 25 mg/dL | EXTERNAL | | | | performed at [facility];[address] | | LAB | | | | [address];[place] | | | | | | [address] | | | | + + + + + + | Creatinine | 0.88Comment: Testing | 0.50 - 1.00 | EXTERNAL | | | | performed at [facility];888 | mg/dL | LAB | | | | [address];[place] | | | | | | [address] | | | | + + + + + + | BUN/Creatin | 12Comment: Testing | | EXTERNAL | | | ine Ratio | performed at [facility];[address] | | LAB | | | | [address];[place] | | | | | | [address] | | | | + + + + + + | Calcium | 10.0Comment: Testing | 8.5 - 10.5 | EXTERNAL | | | | performed at [facility];888 | mg/dL | LAB | | | | [address];[place] | | | | | | [address] | | | | + + + + + + | Protein, | 8.9 (H)Comment: Testing | 6.3 - 8.2 g/dL | EXTERNAL | | | Total | performed at [facility];[address] | | LAB | | | | [address];[place] | | | | | | [address] | | | | + + + + + + | Albumin | 4.3Comment: Testing | 3.3 - 4.8 g/dL | EXTERNAL | | | | performed at [facility];[address] | | LAB | | | | [address];[place] | | | | | | [address] | | | | + + + + + + | Globulin | 4.6Comment: Testing | 1.3 - 4.9 g/dL | EXTERNAL | | | | performed at [facility];[address] | | LAB | | | | [address];[place] | | | | | | [address] | | | | + + + + + + | A/G Ratio | 0.9 (L)Comment: Testing | 1.0 - 2.4 | EXTERNAL | | | | performed at [facility];[address] | | LAB | | | | [address];[place] | | | | | | [address] | | | | + + + + + + | Bilirubin | 0.7Comment: Testing | 0.1 - 1.5 mg/dL | EXTERNAL | | | Total | performed at [facility];[address] | | LAB | | | | [address];[place] | | | | | | [address] | | | | + + + + + + | ALP, | 121 (H)Comment: Testing | 35 - 115 U/L | EXTERNAL | | | External | performed at [facility];[address] | | LAB | | | | [address];[place] | | | | | | [address] | | | | + + + + + + | AST | 17Comment: MODERATE | 10 - 45 U/L | EXTERNAL | | | | HEMOLYSISTesting | | LAB | | | | performed at [facility];[address] | | | | | | [address];[place] | | | | | | [address] | | | | + + + + + + | ALT | 18Comment: Testing | 10 - 65 U/L | EXTERNAL | | | | performed at [facility];[address] | | LAB | | | | [address];[place] | | | | | | [address] | | | | + + + [...] | | | | | | at [facility];[address] [place] [address] | | | | | | Blvd;[place] [address] | | | | + + + [...] (500), | | | | | | multimedia editor ATUL TIPTON | | | | [...]
--- OUTSIDE RECORDS SUMMARY | ~2019-04-09 | XMS | Encounter Summary ---
Demographics + + + | Address | [address] | | | [place] [address] | + + + | Home Phone | | + + + | Preferred Language | Unknown | + + + | Marital Status | | + + + | Amish Affiliation | Unknown | + + + | Race | Unknown | + + + | Ethnic Group | Unknown | + + + Author + + + | Author | [facility] | | | and [place] | + + + | Organization | [facility] | [...] Team Providers + +------+ + | Care Hr Shared Services Consultant Name | Role | Phone | + +------+ + PCP | Unavailable | + +------+ + Encounter Details +--------+ + + + + | Date | Type | Department | Care Team | Description | +--------+ + + + + | 06/01/ | Hospital | [facility] | Patricia Oden, | Colon cancer | | 2017 | Encounter | [facility] | [address] | screening | | | | INTRA OP [address] | [address] [facility] | | | | | [place], [place] | [place] [address] | | | | | [address] | [phone] | | | | | [phone] | | | +--------+ + + + [...] submitted in | | | cassette C1. FAM:[facility] PERFORMING LABORATORY: Professional | | | interpretation and technical preparation was performed by [facility] | | | [facility], [address], | | | [place] [address] (Stna: Vinh Leal M.D.; [place]#: | | | [id number]). Diagnostician: Samuel Venegas MD Pathologist | | [...] | | | Fingerstick | performed at [facility];[address] | | LAB | | | | [address];[place], [place] | | | | | | [address] | | | | + + + [...]
--- OUTSIDE RECORDS SUMMARY | ~2019-04-09 | XMS | Encounter Summary ---
Demographics + + + | Address | [address] | | | [place] [address] | + + + | Home Phone | | + + + | Preferred Language | Unknown | + + + | Marital Status | | + + + | Sabianism Affiliation | Unknown | + + + | Race | Unknown | + + + | Ethnic Group | Unknown | + + + Author + + + | Author | [facility] | | | and [place] | + + + | Organization | [facility] | | | and [place] | + + + | Address | Unknown | + + + | Phone | Unavailable | + + + Support + + +---------+ + | Name | Relationship | Address | Phone | + + +---------+ + | Kiana Hurt | ECON | Unknown | | + + +---------+ + Care Team Providers + +------+ + | Care Foreign Clerk Name | Role | Phone | + +------+ + PCP | Unavailable | + +------+ + Encounter Details +--------+ + + + + | Date | Type | Department | Care Team | Description | +--------+ + + + + | 11/19/ | Hospital | [facility] | RiazAlmash | Chest pain in adult; | | 2016 - | Encounter | [facility] | MD [address] | Hyponatremia; | | | | CARE FLOOR [phone] | [facility] | Hypokalemia; | | 11/23/ | | [address] | [place] [address] | Gastritis and | | 2016 | | [place] | [phone] | duodenitis; Type 2 | | | | [id number] | | diabetes mellitus | | | | [phone] | | without complication | | | | | | (HCC) | +--------+ + + + + Social [...] + + + | Blood Pressure | 140/77 | 11/24/2015 9:05 AM | | | | | PDT | | + + + + + | Pulse | 67 | 11/24/2015 9:05 AM | | | | | PDT | | + + + + + | Temperature | 37.1 C (98.8 F) | 11/24/2015 9:05 AM | | | | | PDT | | + + + + + | Respiratory Rate | 18 | 11/24/2015 9:05 AM | | | | | PDT | | + + + + + | Oxygen Saturation | - | - | | + + + + + | Inhaled Oxygen | - | - | | | Concentration | | | | + + + + + | Weight | 84.1 kg (185 lb 6.6 | 11/24/2015 9:05 AM | | | | oz) | PDT | | + + + + + | Height | - | - | | + + + + + | Body Mass Index | 30.85 | 11/19/2015 11:27 AM | | | | | PDT | | + + + + + documented in this encounter Discharge Summaries Demetria Mixon MD - 11/24/2015 8:22 AM PDTFormatting of this note might be different from fr[place] olivo. Discharge Summaries by Demetria Mixon MD at 11/24/15821 Author: Demetria Mixon MD Service: Hospitalist Author Type: Physician Filed: 11/26/15 1024 Date of Service: 11/24/15821 Status: Signed Hauling Contractor: Demetria Mixon MD (Physician) [facility] Service: Hospitalist Discharge Summary Date of Admission: 11/20/2015 Date of Discharge: 11/24/2015 Discharge Physician: Demetria Mixon MD Treatment Team: Admitting Provider: Almas Mello MD Discharge Diagnoses: Principal Problem: Gastritis and duodenitis Active Problems: DM (diabetes mellitus) (HCC) Leukocytosis, unspecified Smoking Severe protein-calorie malnutrition (HCC) Resolved Problems: * No resolved hospital problems. * Procedures: * No surgery found * Significant Diagnostic Studies: BRIEF HISTORY OF PRESENTATION: Whit Hurt is a 60 y.o. female who presented with N/V and epigastric pain please to H&P for details. HOSPITAL COURSE: N/V and epigastric pain due to Gastritis secondary to NSAIDs. Recommend cessation of NSA ID's and ASA completely ,continue PPI BID and Carafate,follow up with as an outpati ent. DM 2 continue current insulin regimen follow up with PCP Tobacco abuse recommend cessation Leukocytosis; uncertain etiology. No antibiotic at this time. Could be from stress response .overall improving HTN continue current antihypertensives and follow up with PCP Anusol prn for possible hemorrhoids and itching Hypokalemia replete prior to discharge Patient was discharged in stable condition. Addressed all of their questions and covered wi th side affects of newly added medications. Past Medical History Diagnosis Date Hypertension SC (myocardial infarction) (HCC) Hyperlipidemia Diabetes mellitus, type 2 (HCC) CAD (coronary artery disease) 11/18/2015 Past Surgical History Procedure Laterality Date Hysterectomy Oophorectomy Coronary stent placement Cardiac catheterization Neck surgery Esophagogastroduodenoscopy N/A 11/18/2015 Procedure: ESOPHAGOGASTRODUODENOSCOPY; Surgeon: Jasson Stauffer IV, MD; Location: [facility]; Service: Gastroenterology; Laterality: N/A; Allergies Allergen Reactions Penicillins Itching Prescriptions prior to admission Medication Sig Dispense Refill Last Dose amLODIPine (NORVASC) 10 MG tablet 11/19/2015 at Unknown time clopidogrel (PLAVIX) 75 MG tablet Take 75 mg by mouth daily. 11/19/2015 at Unknown kiana e estradiol (ESTRACE) 1 MG tablet 11/19/2015 at Unknown time HYDROcodone-acetaminophen (NORCO) 7.5-325 MG per tablet 11/20/2015 at Unknown time insulin aspart protamine-insulin aspart (NOVOLOG 70/30) (70-30) 100 UNIT/ML injection I nject 15 Units into the skin 2 (two) times daily before meals. 3 mL 1 11/19/2015 at Unknown t miya metFORMIN (GLUCOPHAGE) 500 MG tablet Take 2 tablets by mouth 2 (two) times daily with m eals. 60 tablet 1 11/19/2015 at Unknown time oxybutynin (DITROPAN) 5 MG tablet every 6 (six) hours as needed. Indications: Excessive or Profuse Sweating Past Month at Unknown time pravastatin (PRAVACHOL) 40 MG tablet Take 40 mg by mouth nightly. 11/19/2015 at Unknow n time promethazine (PHENERGAN) 25 MG tablet Take 1 tablet by mouth every 6 (six) hours as nee ded for Nausea or Vomiting (or vomiting). 15 tablet 0 Past Week at Unknown time ramipril (ALTACE) 10 MG capsule 11/19/2015 at Unknown time sertraline (ZOLOFT) 50 MG tablet Take 50 mg by mouth daily. 11/19/2015 at Unknown time sucralfate (CARAFATE) 1 GM/10ML suspension Take 10 mLs by mouth every 6 (six) hours. 42 0 mL 0 11/19/2015 at Unknown time vitamin D2, ergocalciferol, 44161 UNITS capsule once a week. Pt takes every Tuesday at Unknown time traMADol (ULTRAM) 50 MG tablet every 6 (six) hours as needed. DISCHARGE EXAM Vital Signs: BP 140/77 mmHg | Pulse 67 | Temp(Src) 98.8 F (37.1 C) (Oral) | Resp 18 | Wt 84.1 kg (18 5 lb 6.5 oz) | SpO2 95% | ? No General appearance: alert, appears stated age, cooperative,and no distress Head: Normocephalic, without obvious abnormality, atraumatic Neck: no adenopathy, no carotid bruit, no JVD, supple, symmetrical, trachea midline and thy roid not enlarged, symmetric, no tenderness/mass/nodules Lungs: clear to auscultation bilaterally Heart: regular rate and rhythm, S1, S2 normal, no murmur, click, rub or gallop Abdomen: soft, non-tender; bowel sounds normal; no masses, no organomegaly Extremities: extremities normal, atraumatic, no cyanosis or edema Pulses: 2+ and symmetric Neurologic: Grossly normal DATA CBC: Lab Results Component Value Date WBC 11.09* 11/23/2015 RBC 4.38 11/23/2015 HGB 13.8 11/23/2015 HCT 40.4 11/23/2015 MCV 92.3 11/23/2015 MCH 31.5 11/23/2015 MCHC 34.1 11/23/2015 RDW 42.9 11/23/2015 PLT 294 11/23/2015 MPV 8.9 11/23/2015 DIFFTYPE AUTOMATED 11/23/2015 CMP: Lab Results Component Value Date NA 142 11/24/2015 K 3.3* 11/24/2015 CL 104 11/24/2015 CO2 30 11/24/2015 ANIONGAP 11 11/24/2015 GLUF 121* 11/24/2015 BUN 8 11/24/2015 CREATININE 0.7 11/24/2015 BCR 17 11/21/2015 CA 9.5 11/24/2015 CA 10.0 11/16/2015 PROT 7.3 11/20/2015 ALB 3.1* 11/24/2015 GLOB 3.6 11/20/2015 BILITOT 0.4 11/20/2015 ALP 105 11/20/2015 AST 23 11/20/2015 ALT 35 11/20/2015 EGFR >60 11/24/2015 Disposition: Home Condition: Stable Code Status: Full Code Discharge Instructions Diet Diabetic Scheduling Instructions: Low fat diet Activity as Tolerated Call MD for: Temperature > 100.4F (38C) Call MD for: Persistant Nausea and Vomiting Call MD for: Difficulty Breathing, Headache or Visual Disturbances Call MD for: Severe Uncontrolled Pain Call MD for: Redness, Tenderness, or Signs of Infection (Pain, Swelling, Redness, Odor or Green/Yellow Discharge Around Incision Site) Call MD for: Persistant Dizziness or Light-Headedness Call MD for: Hives Call MD for: Extreme Fatigue Follow up: [facility], [address] [place] [address] Schedule an appointment as soon as possible for a visit in 1 week Jasson Stauffer IV, MD [address] [place] [id number] Schedule an appointment as soon as possible for a visit in 1 week As needed Medication List START taking these medications hydrocortisone 25 MG suppository QTY: 12 suppository Refills: 0 Commonly known as: ANUSOL-HC Place 1 suppository rectally 2 (two) times daily as needed for Hemorrhoids. Place into the rectum after each bowel movement and at night as needed CHANGE how you take these medications pantoprazole 40 MG tablet QTY: 60 tablet Refills: 0 Commonly known as: PROTONIX Take 1 tablet by mouth 2 (two) times daily before meals. What changed: when to take this CONTINUE taking these medications amLODIPine 10 MG tablet Refills: 0 Commonly known as: NORVASC clopidogrel 75 MG tablet Refills: 0 Commonly known as: PLAVIX estradiol 1 MG tablet Refills: 0 Commonly known as: ESTRACE HYDROcodone-acetaminophen 7.5-325 MG per tablet Refills: 0 Commonly known as: NORCO insulin aspart protamine-insulin aspart (70-30) 100 UNIT/ML [...] tablet Refills: 0 Commonly known as: PRAVACHOL promethazine 25 MG tablet QTY: 15 tablet Refills: 0 Commonly known as: PHENERGAN Take 1 tablet by mouth every 6 (six) hours as needed for Nausea or Vomiting (or vomiting). ramipril 10 MG capsule Refills: 0 Commonly known as: ALTACE sertraline 50 MG tablet Refills: 0 Commonly known as: ZOLOFT sucralfate 1 GM/10ML suspension QTY: 420 mL Refills: 0 Commonly known as: CARAFATE Take 10 mLs by mouth every 6 (six) hours. traMADol 50 MG tablet Refills: 0 Commonly known as: ULTRAM vitamin D2 (ergocalciferol) 48566 UNITS capsule Refills: 0 Where to Get Your Medications These are the prescriptions that you need to pickle sorter. You may get the following medications from any pharmacy - hydrocortisone 25 MG suppository - pantoprazole 40 MG tablet Discharge took over 30 minutes, to include final examination, discussion of admission, and preparation of prescriptions, instructions for on-going care, follow-up and documentation o f discharge summary. Demetria Mixon MD 11/24/2015 documented in this encou nter Progress Notes Demetria Mixon MD - 11/23/2015 11:34 AM PDTFormatting of this note might be different from th e original. Progress Notes by Demetria Mixon MD at 11/23/15 1415 Author: Demetria Mixon MD Service: Hospitalist Author Type: Physician Filed: 11/23/15 1844 Date of Service: 11/23/151133 Status: Signed Hauling Contractor: Demetria Mixon MD (Physician) [facility] Service: Hospitalist Progress Note Hospital Day: LOS: 3 days Post-Op Day: * No surgery found * SUBJECTIVE Patient Summary: Refer to H&P for details Events Overnight: Patient seen and examined,denies CP or SOB,able to tolerate FLD. Scheduled Medications amLODIPine 10 mg Oral Daily atorvastatin 10 mg Oral Nightly clopidogrel 75 mg Oral Daily docusate sodium 100 mg Oral BID estradiol 1 mg Oral Daily heparin (porcine) 5000 unit/0.5mL 5,000 Units Subcutaneous 2 times per day hydrocortisone 25 mg Rectal BID insulin glargine 15 Units Subcutaneous Nightly insulin lispro (human) 0-14 Units Subcutaneous TID AC insulin lispro (human) 0-7 Units Subcutaneous Nightly lisinopril 40 mg Oral Daily metFORMIN 1,000 mg Oral BID WC pantoprazole 40 mg Oral BID AC potassium chloride 40 mEq Oral Once sertraline 50 mg Oral Daily sodium chloride 10 mL Intravenous Q8H sucralfate 1 g Oral 4 times per day Continuous Infusions dextrose PRN Medications acetaminophen OR acetaminophen, aluminum-magnesium hydroxide-simethicone, calcium carbo ingris, dextrose, glucagon, labetalol, labetalol, magnesium sulfate OR magnesium sulfate * *OR magnesium sulfate, morphine OR morphine OR morphine, ondansetron OR ondans etron, phosphorus OR sodium phosphate IVPB 20 mmol OR sodium phosphate IVPB 45 mmol, polyethylene glycol, potassium chloride OR potassium chloride OR potassium chloride , simethicone, traMADol, zolpidem OBJECTIVE Vital Signs: BP 119/67 mmHg | Pulse 67 | Temp(Src) 98.5 F (36.9 C) (Oral) | Resp 16 | Wt 84.1 kg (18 5 lb 6.5 oz) | SpO2 97% | ? No General appearance: alert, appears stated age, cooperative, fatigued and no distress Head: Normocephalic, without obvious abnormality, atraumatic Neck: no adenopathy, no carotid bruit, no JVD, supple, symmetrical, trachea midline and thy roid not enlarged, symmetric, no tenderness/mass/nodules Lungs: clear to auscultation bilaterally Heart: regular rate and rhythm, S1, S2 normal, no murmur, click, rub or gallop Abdomen: soft, non-tender; bowel sounds normal; no masses, no organomegaly Extremities: extremities normal, atraumatic, no cyanosis or edema Pulses: 2+ and symmetric Neurologic: Grossly normal DATA CBC: Lab Results Component Value Date WBC 11.09* 11/23/2015 RBC 4.38 11/23/2015 HGB 13.8 11/23/2015 HCT 40.4 11/23/2015 MCV 92.3 11/23/2015 MCH 31.5 11/23/2015 MCHC 34.1 11/23/2015 RDW 42.9 11/23/2015 PLT 294 11/23/2015 MPV 8.9 11/23/2015 DIFFTYPE AUTOMATED 11/23/2015 CMP: Lab Results Component Value Date NA 143 11/23/2015 K 3.3* 11/23/2015 CL 107 11/23/2015 CO2 28 11/23/2015 ANIONGAP 11 11/23/2015 GLUF 115* 11/23/2015 BUN 5* 11/23/2015 CREATININE 0.6 11/23/2015 BCR 17 11/21/2015 CA 9.0 11/23/2015 CA 10.0 11/16/2015 PROT 7.3 11/20/2015 ALB 3.0* 11/23/2015 GLOB 3.6 11/20/2015 BILITOT 0.4 11/20/2015 ALP 105 11/20/2015 AST 23 11/20/2015 ALT 35 11/20/2015 EGFR >60 11/23/2015 Lab Results Component Value Date HGBA1C 10.2* 11/17/2015 PROBLEM LIST Principal Problem: Gastritis and duodenitis Active Problems: DM (diabetes mellitus) (HCC) Leukocytosis, unspecified Smoking Severe protein-calorie malnutrition (HCC) ASSESSMENT & PLAN N/V and epigastric pain due to Gastritis secondary to NSAIDs. Recommend cessation of NSAID 's and ASA completely ,continue IVF and advance diet slowly to low fat diet ,continue PPI BI D and Carafate DM 2 continue current insulin regimen and monitor BG adjust as needed Tobacco abuse recommend cessation,nicotine patch was offered Leukocytosis; uncertain etiology. No antibiotic at this time. Could be from stress response .overall improving HTN continue current antihypertensives and monitor BP adjust as needed Anusol for possible hemorrhoids DVT px HSC and SCDS Disposition: Admitted Code Status: Full Code Demetria Mixon MD 11/23/2015 emetria Mixon MD - 2015 11:05 AM PDT Progress Notes by Demetria Mixon MD at 11/22/15 4206 Author: Demetria Mixon MD Service: Hospitalist Author Type: Physician Filed: 11/22/152007 Date of Service: 11/22/151104 Status: Signed Hauling Contractor: Demetria Mixon MD (Physician) [facility] Service: Hospitalist Progress Note Hospital Day: LOS: 2 days Post-Op Day: * No surgery found * SUBJECTIVE Patient Summary: Refer to H&P for details Events Overnight: Patient seen and examined,denies CP or SOB,she feels rectal pain an d also fatigued,has nausea is willing to try FLD,stable VS. Addressed all her questi ons. Scheduled Medications amLODIPine 10 mg Oral Daily atorvastatin 10 mg Oral Nightly clopidogrel 75 mg Oral Daily docusate sodium 100 mg Oral BID estradiol 1 mg Oral Daily heparin (porcine) 5000 unit/0.5mL 5,000 Units Subcutaneous 2 times per day hydrocortisone 25 mg Rectal BID insulin glargine 15 Units Subcutaneous Nightly insulin lispro (human) 0-14 Units Subcutaneous TID AC insulin lispro (human) 0-7 Units Subcutaneous Nightly lisinopril 40 mg Oral Daily metFORMIN 1,000 mg Oral BID WC pantoprazole 40 mg Oral BID AC potassium chloride 40 mEq Oral Once sertraline 50 mg Oral Daily sodium chloride 10 mL Intravenous Q8H sucralfate 1 g Oral 4 times per day Continuous Infusions dextrose sodium chloride (IV) 75 mL/hr at 11/21/15 1419 PRN Medications acetaminophen OR acetaminophen, aluminum-magnesium hydroxide-simethicone, calcium carbo ingris, dextrose, glucagon, labetalol, labetalol, magnesium sulfate OR magnesium sulfate * *OR magnesium sulfate, morphine OR morphine OR morphine, ondansetron OR ondans etron, phosphorus OR sodium phosphate IVPB 20 mmol OR sodium phosphate IVPB 45 mmol, polyethylene glycol, potassium chloride OR potassium chloride OR potassium chloride , traMADol, zolpidem OBJECTIVE Vital Signs: BP 138/70 mmHg | Pulse 74 | Temp(Src) 98.9 F (37.2 C) (Oral) | Resp 16 | Wt 85.3 kg (18 8 lb 0.8 oz) | SpO2 96% | ? No General appearance: alert, appears stated age, cooperative, fatigued and no distress Head: Normocephalic, without obvious abnormality, atraumatic Neck: no adenopathy, no carotid bruit, no JVD, supple, symmetrical, trachea midline and thy roid not enlarged, symmetric, no tenderness/mass/nodules Lungs: clear to auscultation bilaterally Heart: regular rate and rhythm, S1, S2 normal, no murmur, click, rub or gallop Abdomen: soft, non-tender; bowel sounds normal; no masses, no organomegaly Extremities: extremities normal, atraumatic, no cyanosis or edema Pulses: 2+ and symmetric Neurologic: Grossly normal DATA CBC: Lab Results Component Value Date WBC 11.20* 11/22/2015 RBC 4.52 11/22/2015 HGB 14.2 11/22/2015 HCT 41.8 11/22/2015 MCV 92.5 11/22/2015 MCH 31.3 11/22/2015 MCHC 33.9 11/22/2015 RDW 42.9 11/22/2015 PLT 298 11/22/2015 MPV 8.8 11/22/2015 DIFFTYPE AUTOMATED 11/22/2015 CMP: Lab Results Component Value Date NA 143 11/22/2015 K 3.5 11/22/2015 CL 110* 11/22/2015 CO2 24 11/22/2015 ANIONGAP 13 11/22/2015 GLUF 131* 11/22/2015 BUN 8 11/22/2015 CREATININE 0.6 11/22/2015 BCR 17 11/21/2015 CA 8.9 11/22/2015 CA 10.0 11/16/2015 PROT 7.3 11/20/2015 ALB 2.8* 11/22/2015 GLOB 3.6 11/20/2015 BILITOT 0.4 11/20/2015 ALP 105 11/20/2015 AST 23 11/20/2015 ALT 35 11/20/2015 EGFR >60 11/22/2015 Lab Results Component Value Date HGBA1C 10.2* 11/17/2015 PROBLEM LIST Principal Problem: Gastritis and duodenitis Active Problems: DM (diabetes mellitus) (HCC) Leukocytosis, unspecified Smoking Severe protein-calorie malnutrition (HCC) ASSESSMENT & PLAN N/V and epigastric pain due to Gastritis secondary to NSAIDs. Recommend cessation of NSAID 's and ASA completely ,continue IVF and advance diet slowly,continue PPI BID and Carafate DM 2 continue current insulin regimen and monitor BG adjust as needed Tobacco abuse recommend cessation,nicotine patch was offered Leukocytosis; uncertain etiology. No antibiotic at this time. Could be from stress response .overall improving HTN continue current antihypertensives and monitor BP adjust as needed Add Anusol for possible hemorrhoids DVT px HSC and SCDS Disposition: Admitted Code Status: Full Code Demetria Mixon MD 11/22/2015 onversion Transaction, Provider Unknown - 11/21/2015 6:00 PM PDTFormatting of this note might be different from fr[place] e original. Case Management by RONI Prince at 11/21/15 1800 Author: RONI Prince Service: (none) Author Type: Sports Intern Filed: 11/21/15 802 Date of Service: 11/21/15 1800 Status: Signed Hauling Contractor: RONI Prince (Sports Intern) 11/21/15 1700 Discharge Planning Evaluation Admitting Diagnosis Gastritis Readmission Yes-within 14 days (11/14 to 11/19/15) Reason for readmission pain management Last discharge disposition Home Needs met at last discharge Yes (ESOPHAGOGASTRODUODENOSCOPY at last admit) Picked up discharge Rx medications Yes Started prescribed DC meds No Was there a reason for not starting DC meds No Followed up with primary or specialty provider No Understood discharge instructions Yes Assistance available Yes Concerns for meeting needs No Living Arrangements Spouse/significant other (Kiana Hurt [phone]) Type of Residence Private residence House type Mobile home Steps to enter 2 Independent with ADL's Yes Independent with Mobility Yes Home Care Services No Mental Status Oriented Prior functional status 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 She is takin g Plavix as a blood thinner and her insurance covers the entire cost. She has no caregivers or Home O2. Resources Transportation issues [facility] [address]; recent change from [facility] [address] Anticipated Disposition Facility Type Home Met with: patient and discussed discharge planning. Pt is a 60 y.o., female with significa nt past medical history of T2DM, CAD, tobacco, and HTN. Patient's PCP is: BRAYDON LOWRY Patient's insurance: [employer] PPO Coverage concerns: None Medication coverage/concerns: Y/N Community resources utilized / needed: TBD Assistance in transportation: Spouse Identification of any specific education / training: TBD Barriers to Discharge / Alternative housing needed: At the time of this assessment, patient did not indicate any barriers to returning to his/her home at discharge. 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 Tolerating clear liquid diet. Complains of abdominal pain at 7/10. States she is able to tolerate this. Independent in room. No changes since earlier as sessment. BIN MENDOZA [employer] Transaction, Provider Unknown - 11/21/2015 3:16 PM PDT Progress Notes by Zohra Martinez RD at 11/21/15 2587 Author: Zohra Martinez RD Service: (none) Author Type: Registered Dietitian Filed: 11/21/15 1516 Date of Service: 11/21/151515 Status: Signed Hauling Contractor: Zohra Martinez RD (Registered Dietitian) 11/21/15 3230 Subjective Timepoint Admit (Consult - low intake) Pt c/o Pt reports minimal po intake over the past week. Reports significant nausea. Told she will remain on clear liquids for 5 days. Diet Experience Previous Diet / Nutrition Education / Counseling Pt reports she did not check blood sugars or take insulin prior to last admit. Received diabetes education last week. Now has a mete r and insulin. Self-selected diet(s) followed Typically eats 2 meals daily. Normally has a good appetite Food Intake Amount of Food Tolerated broth this morning. Type of Food / Meals Clear liquid diet Nutrition-Focused Physical Findings Digestive System (Mouth to Rectum) Nausea currently controlled with meds Anthropometrics Weight change Pt reports wt loss prior to admit. Wt down 9.8 kg over past week. Pt repo rts UBW is around 197#. Wt on admit last week was 89.6 kg. Wt on this admit 79.8 kg Biochemical data, medical tests, and procedures reviewed Biochemical data, medical tests, and procedures reviewed K low. BG elevated. Estimated Energy Needs Total Energy Estimated Needs [id number] kcals Method for Estimating Needs 25-30 kcal/kg ABW of 62.6 kg Estimated Protein Needs Total Protein Estimated Needs 75-94 gms Method for Estimating Needs 1.2-1.5 gm pro/kg ABW of 62.6 kg Recommendations Recommended energy needs Advance to diabetic diet when able. Add Boost Breeze BID until in take improves. Monitor and follow as indicated. Nutritional Risk Nutritional risk Moderate Follow up date 11/26/15 Malnutrition Evaluation Estimated energy intake time frame 7 Days Estimated % energy intake last 7 days (!) 10 % RD Assessed Weight 79.8 kg (175 lb 14.8 oz) Weight Loss time frame 1 Week Weight 1 week ago 89.6 kg (197 lb 8.5 oz) % weight loss from 1 week ago (!) -10.94 % Malnutrition in the Context Of Acute Illness Clinical Characteristics indicative of severe malnutrition 50% or less of EER within 5 days ;>2% weight loss over 1 week Protein-Calorie Malnutrition Type (!) Severe Demetria Perez MD - 11/21/2015 1:23 PM PDTFormatting of this note might be different from the origi nal. Progress Notes by Demetria Mixon MD at 11/21/15 1323 Author: Demetria Mixon MD Service: Hospitalist Author Type: Physician Filed: 11/21/15 5286 Date of Service: 11/21/151322 Status: Addendum Hauling Contractor: Demetria Mixon MD (Physician) Related Notes: Original Note by Demetria Mixon MD (Physician) filed at 11/21/15 4587 [facility] Service: Hospitalist Progress Note Hospital Day: LOS: 1 day Post-Op Day: * No surgery found * SUBJECTIVE Patient Summary: Refer to H&P for details Events Overnight: Patient seen and examined,denies CP or SOB,resolved epigastric pain and able to tolerate CLD,stable VS. Addressed all her questions. Scheduled Medications amLODIPine 10 mg Oral Daily atorvastatin 10 mg Oral Nightly clopidogrel 75 mg Oral Daily docusate sodium 100 mg Oral BID estradiol 1 mg Oral Daily [START ON 11/22/2015] heparin (porcine) 5000 unit/0.5mL 5,000 Units Subcutaneous 2 time s per day insulin glargine 15 Units Subcutaneous Nightly insulin lispro (human) 0-14 Units Subcutaneous TID AC insulin lispro (human) 0-7 Units Subcutaneous Nightly lidocaine buffered 1% 0.5 mL Intradermal Once lisinopril 40 mg Oral Daily metFORMIN 1,000 mg Oral BID WC pantoprazole 40 mg Oral BID AC potassium chloride 40 mEq Oral Once sertraline 50 mg Oral Daily sodium chloride 10 mL Intravenous Q8H sucralfate 1 g Oral 4 times per day Continuous Infusions dextrose sodium chloride (IV) 75 mL/hr at 11/21/15 1419 PRN Medications acetaminophen OR acetaminophen, aluminum-magnesium hydroxide-simethicone, calcium carbo ingris, dextrose, glucagon, labetalol, labetalol, morphine OR morphine OR morphine, on dansetron OR ondansetron, polyethylene glycol, potassium chloride OR potassium chlor jackie OR potassium chloride, traMADol, zolpidem OBJECTIVE Vital Signs: BP 105/60 mmHg | Pulse 58 | Temp(Src) 99.1 F (37.3 C) (Oral) | Resp 18 | Wt 83.008 kg ( 183 lb) | SpO2 97% | ? No General appearance: alert, appears stated age, cooperative, fatigued and no distress Head: Normocephalic, without obvious abnormality, atraumatic Neck: no adenopathy, no carotid bruit, no JVD, supple, symmetrical, trachea midline and thy roid not enlarged, symmetric, no tenderness/mass/nodules Lungs: clear to auscultation bilaterally Heart: regular rate and rhythm, S1, S2 normal, no murmur, click, rub or gallop Abdomen: soft, non-tender; bowel sounds normal; no masses, no organomegaly Extremities: extremities normal, atraumatic, no cyanosis or edema Pulses: 2+ and symmetric Neurologic: Grossly normal DATA CBC: Lab Results Component Value Date WBC 12.70* 11/21/2015 RBC 4.67 11/21/2015 HGB 14.6 11/21/2015 HCT 42.8 11/21/2015 MCV 91.6 11/21/2015 MCH 31.2 11/21/2015 MCHC 34.1 11/21/2015 RDW 42.9 11/21/2015 PLT 313 11/21/2015 MPV 8.4 11/21/2015 DIFFTYPE AUTOMATED 11/21/2015 CMP: Lab Results Component Value Date NA 139 11/21/2015 K 3.2* 11/21/2015 CL 102 11/21/2015 CO2 28 11/21/2015 ANIONGAP 12 11/21/2015 GLUF 186* 11/21/2015 BUN 12 11/21/2015 CREATININE 0.7 11/21/2015 BCR 17 11/21/2015 CA 8.8 11/21/2015 CA 10.0 11/16/2015 PROT 7.3 11/20/2015 ALB 3.6 11/20/2015 GLOB 3.6 11/20/2015 BILITOT 0.4 11/20/2015 ALP 105 11/20/2015 AST 23 11/20/2015 ALT 35 11/20/2015 EGFR >60 11/21/2015 Lab Results Component Value Date HGBA1C 10.2* 11/17/2015 PROBLEM LIST Principal Problem: Gastritis and duodenitis Active Problems: DM (diabetes mellitus) (HCC) Leukocytosis, unspecified Smoking Severe protein-calorie malnutrition (HCC) ASSESSMENT & PLAN N/V and epigastric pain due to Gastritis secondary to NSAIDs. Recommend cessation of NSAID 's and ASA completely ,continue IVF and advance diet slowly ,make PPI BID,dietary consult DM 2 continue current insulin regimen and monitor BG adjust as needed Tobacco abuse recommend cessation,nicotine patch was offered Leukocytosis; uncertain etiology. No antibiotic at this time. Could be from stress response . HTN continue current antihypertensives and monitor BP adjust as needed Loose stool will check stool for C diff DVT px HSC and SCDS Disposition: Admitted Code Status: Full Code Demetria Mixon MD 11/21/2015 onversion Transaction, Provider Unknown - 11/20/2015 12:57 PM PDTFormatting of this note might be different from fr[place] olivo. Progress Notes by Shahzad Montoya RPH at 11/20/15 1257 Author: Shahzad Montoya RPH Service: (none) Author Type: Pharmacist Filed: 11/20/15 1257 Date of Service: 11/20/15 1257 Status: Signed Hauling Contractor: Shahzad Montoya RPH (Pharmacist) Clinical Pharmacy Note: Renal Monitoring Whit Hurt 60 y.o. female Ht Readings from Last 1 Encounters: 11/16/15 1.651 m (5' 5") Wt Readings from Last 1 Encounters: 11/20/15 79.8 kg (175 lb 14.8 oz) CREATININE Date Value Ref Range Status 11/20/2015 0.84 0.50 - 1.00 mg/dL Final Comment: Testing performed at [facility];[address] [place] [address];[place] [address] CREATININE: 0.84 (11/20/15 0721) Estimated creatinine clearance - 74.3 mL/min Pharmacy dosing for renal function per Dr. Mello. Currently, there are no medications needing to be adjusted. Pharmacy will continue to monit or for changes in medication orders and in renal function and adjust accordingly. Shahzad Montoya RPh 11/20/2015 12:57 PM docume nted in this encounter Plan of Treatment Not on filedocumented as of this encounter Procedures + +--------+ + + + | Procedure Name | Priori | Date/Time | Associated Diagnosis | Comments | | | ty | | | | + +--------+ + + + | POC GLUCOSE | Routin | 11/24/2015 | | Results for this | | | e | 5:47 AM | | procedure are in the | | | | PDT | | results section. | + +--------+ + + + | RENAL FUNCTION PANEL | Routin | 11/24/2015 | | Results for this | | | e | 4:34 AM | | procedure are in the | | | | PDT | | results section. | + +--------+ + + + | POC GLUCOSE | Routin | 11/23/2015 | | Results for this | | | e | 8:42 PM | | procedure are in the | | | | PDT | | results section. | + +--------+ + + + | POC GLUCOSE | Routin | 11/23/2015 | | Results for this | | | e | 4:51 PM | | procedure are in the | | | | PDT | | results section. | + +--------+ + + + | POC GLUCOSE | Routin | 11/23/2015 | | Results for this | | | e | 11:29 AM | | procedure are in the | | | | PDT | | results section. | + +--------+ + + + | POC GLUCOSE | Routin | 11/23/2015 | | Results for this | | | e | 5:22 AM | | procedure are in the | | | | PDT | | results section. | + +--------+ + + + | EXTERNAL LAB: CBC | Routin | 11/23/2015 | | Results for this | | | e | 5:04 AM | | procedure are in the | | | | PDT | | results section. | + +--------+ + + + | MAGNESIUM | Routin | 11/23/2015 | | Results for this | | | e | 5:04 AM | | procedure are in the | | | | PDT | | results section. | + +--------+ + + + | RENAL FUNCTION PANEL | Routin | 11/23/2015 | | Results for this | | | e | 5:04 AM | | procedure are in the | | | | PDT | | results section. | + +--------+ + + + | POC GLUCOSE | Routin | 11/22/2015 | | Results for this | | | e | 9:00 PM | | procedure are in the | | | | PDT | | results section. | + +--------+ + + + | POC GLUCOSE | Routin | 11/22/2015 | | Results for this | | | e | 4:21 PM | | procedure are in the | | | | PDT | | results section. | + +--------+ + + + | POC GLUCOSE | Routin | 11/22/2015 | | Results for this | | | e | 11:24 AM | | procedure are in the | | | | PDT | | results section. | + +--------+ + + + | POC GLUCOSE | Routin | 11/22/2015 | | Results for this | | | e | 5:26 AM | | procedure are in the | | | | PDT | | results section. | + +--------+ + + + | EXTERNAL LAB: CBC | Routin | 11/22/2015 | | Results for this | | | e | 5:05 AM | | procedure are in the | | | | PDT | | results section. | + +--------+ + + + | RENAL FUNCTION PANEL | Routin | 11/22/2015 | | Results for this | | | e | 5:05 AM | | procedure are in the | | | | PDT | | results section. | + +--------+ + + + | HISTORICAL | Timed | 11/21/2015 | | Results for this | | MICROBIOLOGY RESULT | | 9:54 PM | | procedure are in the | | | | PDT | | results section. | + +--------+ + + + | POC GLUCOSE | Routin | 11/21/2015 | | Results for this | | | e | 9:44 PM | | procedure are in the | | | | PDT | | results section. | + +--------+ + + + | POTASSIUM | Routin | 11/21/2015 | | Results for this | | | e | 5:35 PM | | procedure are in the | | | | PDT | | results section. | + +--------+ + + + | POC GLUCOSE | Routin | 11/21/2015 | | Results for this | | | e | 4:29 PM | | procedure are in the | | | | PDT | | results section. | + +--------+ + + + | POC GLUCOSE | Routin | 11/21/2015 | | Results for this | | | e | 10:57 AM | | procedure are in the | | | | PDT | | results section. | + +--------+ + + + | POC GLUCOSE | Routin | 11/21/2015 | | Results for this | | | e | 5:22 AM | | procedure are in the | | | | PDT | | results section. | + +--------+ + + + | EXTERNAL LAB: CBC | Routin | 11/21/2015 | | Results for this | | | e | 4:58 AM | | procedure are in the | | | | PDT | | results section. | + +--------+ + + + | BASIC METABOLIC | Routin | 11/21/2015 | | Results for this | | PANEL | e | 4:58 AM | | procedure are in the | | | | PDT | | results section. | + +--------+ + + + | POC GLUCOSE | Routin | 11/20/2015 | | Results for this | | | e | 9:22 PM | | procedure are in the | | | | PDT | | results section. | + +--------+ + + + | POC GLUCOSE | Routin | 11/20/2015 | | Results for this | | | e | 5:21 PM | | procedure are in the | | | | PDT | | results section. | + +--------+ + + + | HELICOBACTER PYLORI | Routin | 11/20/2015 | | Results for this | | AB, IGG | e | 12:51 PM | | procedure are in the | | | | PDT | | results section. | + +--------+ + + + | PHOSPHORUS | Routin | 11/20/2015 | | Results for this | | | e | 12:51 PM | | procedure are in the | | | | PDT | | results section. | + +--------+ + + + | MAGNESIUM | Routin | 11/20/2015 | | Results for this | | | e | 12:51 PM | | procedure are in the | | | | PDT | | results section. | + +--------+ + + + | URINALYSIS, REFLEX | Routin | 11/20/2015 | | Results for this | | MICROSCOPIC AND/OR | e | 11:15 AM | | procedure are in the | | CULTURE | | PDT | | results section. | + +--------+ + + + | LACTIC ACID | Routin | 11/20/2015 | | Results for this | | | e | 8:15 AM | | procedure are in the | | | | PDT | | results section. | + +--------+ + + + | XR CHEST 2 VIEWS | Routin | 11/20/2015 | | Results for this | | | e | 7:59 AM | | procedure are in the | | | | PDT | | results section. | + +--------+ + + + | HISTORICAL LAB PANEL | Routin | 11/20/2015 | | Results for this | | RESULT | e | 7:21 AM | | procedure are in the | | | | PDT | | results section. | + +--------+ + + + | SEDIMENTATION RATE, | Routin | 11/20/2015 | | Results for this | | AUTOMATED | e | 7:21 AM | | procedure are in the | | | | PDT | | results section. | + +--------+ + + + | C-REACTIVE PROTEIN | Routin | 11/20/2015 | | Results for this | | | e | 7:21 AM | | procedure are in the | | | | PDT | | results section. | + +--------+ + + + | ECG 12 LEAD | Routin | 11/20/2015 | | Results for this | | | e | 7:15 AM | | procedure are in the | | | | PDT | | results section. | + +--------+ + + + documented in this encounter Results POC Glucose (11/24/2015 5:47 AM PDT) + + + + + + | Component | Value | Ref Range | Performed | Pathologist | | | | | At | Signature | + + + + + + | Glucose, | 130 (H)Comment: Testing | 65 - 99 mg/dL | EXTERNAL | | | Fingerstick | performed at [facility];[address] | [address] | | | | [address];[place] | | | | | | [address] | | | | + + + + + + + + | Specimen | + + | | + + + +---------+ + + | Performing | Address | City/State/Zipcode | Phone Number | | Organization | | | | + +---------+ + + | EXTERNAL LAB | | | | + +---------+ + + Renal Function Panel (11/24/2015 4:34 AM PDT) + + + + + + | Component | Value | Ref Range | Performed | Pathologist | | | | | At | Signature | + + + + + + | Na | 142Comment: Testing | 135 - 145 | EXTERNAL | | | | performed at [facility], [address] | mmol/L | LAB | | | | [address], | | | | | | [place] [address] | | | | + + + + + + | K | 3.3 (L)Comment: Testing | 3.5 - 4.9 | EXTERNAL | | | | performed at [facility], [address] | mmol/L | LAB | | | | [address], | | | | | | [place] [address] | | | | + + + + + + | Cl | 104Comment: Testing | 99 - 109 mmol/L | EXTERNAL | | | | performed at [facility], [address] | | LAB | | | | [address], | | | | | | [place] [address] | | | | + + + + + + | CO2 | 30Comment: Testing | 23 - 32 mmol/L | EXTERNAL | | | | performed at [facility], [address] | | LAB | | | | [address], | | | | | | [place] [address] | | | | + + + + + + | Anion Gap | 11Comment: Testing | 5 - 20 mmol/L | EXTERNAL | | | | performed at [facility], [address] | | LAB | | | | [address], | | | | | | [place] [address] | | | | + + + + + + | Glucose, | 121 (H)Comment: Testing | 65 - 99 mg/dL | EXTERNAL | | | Fasting | performed at [facility], [address] | | LAB | | | | [address], | | | | | | [place] [address] | | | | + + + + + + | BUN | 8Comment: Testing | 8 - 25 mg/dL | EXTERNAL | | | | performed at [facility], [address] | | LAB | | | | [address], | | | | | | [place] [address] | | | | + + + + + + | Creatinine | 0.7Comment: Testing | 0.50 - 1.00 | EXTERNAL | | | | performed at [facility], [address] | mg/dL | LAB | | | | [address], | | | | | | [place] [address] | | | | + + + + + + | Calcium | 9.5Comment: Testing | 8.5 - 10.5 | EXTERNAL | | | | performed at [facility], [address] | mg/dL | LAB | | | | [address], | | | | | | [place] [address] | | | | + + + + + + | Albumin | 3.1 (L)Comment: Testing | 3.3 - 4.8 g/dL | EXTERNAL | | | | performed at [facility], [address] | | LAB | | | | [address], | | | | | | [place] [address] | | | | + + + + + + | PHOSPHORUS | 3.1Comment: Testing | 2.3 - 4.8 mg/dL | EXTERNAL | | | | performed at [facility], [address] | | LAB | | | | [address], | | | | | | [place] [address] | | | | + + + [...] | | | | | at [facility], [address] | | | | | | [address], | | | | | | [place] [address] | | | | + + + + + + + + | Specimen | + + | Blood specimen | | (specimen) | + + + +---------+ + + | Performing | Address | City/State/Zipcode | Phone Number | | Organization | | | | + +---------+ + + | EXTERNAL LAB | | | | + +---------+ + + POC Glucose (11/23/2015 8:42 PM PDT) + + + + + + | Component | Value | Ref Range | Performed | Pathologist | | | | | At | Signature | + + + + + + | Glucose, | 105 (H)Comment: Testing | 65 - 99 mg/dL | EXTERNAL | | | Fingerstick | performed at [facility];[address] | | [address] | | | | [address];[place], [place] | | | | | | [address] | | | | + + + + + + + + | Specimen | + + | | + + + +---------+ + + | Performing | Address | City/State/Zipcode | Phone Number | | Organization | | | | + +---------+ + + | EXTERNAL LAB | | | | + +---------+ + + POC Glucose (11/23/2015 4:51 PM PDT) + + + + + + | Component | Value | Ref Range | Performed | Pathologist | | | | | At | Signature | + + + + + + | Glucose, | 153 (H)Comment: Testing | 65 - 99 mg/dL | EXTERNAL | | | Fingerstick | performed at [facility];[address] | | LAB | | | | [address];[place] | | | | | | [address] | | | | + + + + + + + + | Specimen | + + | | + + + +---------+ + + | Performing | Address | City/State/Zipcode | Phone Number | | Organization | | | | + +---------+ + + | EXTERNAL LAB | | | | + +---------+ + + POC Glucose (11/23/2015 11:29 AM PDT) + + + + + + | Component | Value | Ref Range | Performed | Pathologist | | | | | At | Signature | + + + + + + | Glucose, | 112 (H)Comment: Testing | 65 - 99 mg/dL | EXTERNAL | | | Fingerstick | performed at [facility];[address] | | [address] | | | | [address];[place] | | | | | | [address] | | | | + + + + + + + + | Specimen | + + | | + + + +---------+ + + | Performing | Address | City/State/Zipcode | Phone Number | | Organization | | | | + +---------+ + + | EXTERNAL LAB | | | | + +---------+ + + POC Glucose (11/23/2015 5:22 AM PDT) + + + + + + | Component | Value | Ref Range | Performed | Pathologist | | | | | At | Signature | + + + + + + | Glucose, | 108 (H)Comment: Testing | 65 - 99 mg/dL | EXTERNAL | | | Fingerstick | performed at [facility];[address] | | LAB | | | | [address];[place], [place] | | | | | | [address] | | | | + + + + + + + + | Specimen | + + | | + + + +---------+ + + | Performing | Address | City/State/Zipcode | Phone Number | | Organization | | | | + +---------+ + + | EXTERNAL LAB | | | | + +---------+ + + External Lab: [facility] (11/23/2015 5:04 AM PDT) + + + + + + | Component | Value | Ref Range | Performed | Pathologist | | | | | At | Signature | + + + + + + | WBC | 11.09 (H)Comment: | 3.80 - 11.00 | EXTERNAL | | | | Testing performed at | K/uL | LAB | | | | [facility], [address] [facility] | | | | | | [place] | | | | | | [address] | | | | + + + + + + | RED CELL | 4.38Comment: Testing | 3.70 - 5.10 | EXTERNAL | | | COUNT | performed at [facility], [address] | M/uL | LAB | | | | [address], | | | | | | [place] [address] | | | | + + + + + + | Hgb | 13.8Comment: Testing | 11.3 - 15.5 | EXTERNAL | | | | performed at [facility], [address] | g/dL | LAB | | | | [address], | | | | | | [place] [address] | | | | + + + + + + | Hematocrit, | 40.4Comment: Testing | 34.0 - 46.0 % | EXTERNAL | | | POC | performed at [facility], [address] | | LAB | | | | [address], | | | | | | [place] [address] | | | | + + + + + + | MCV | 92.3Comment: Testing | 80.0 - 100.0 fl | EXTERNAL | | | | performed at [facility], [address] | | LAB | | | | [address], | | | | | | [place] [address] | | | | + + + + + + | MCH | 31.5Comment: Testing | 27.0 - 34.0 pg | EXTERNAL | | | | performed at [facility], [address] | | LAB | | | | [address], | | | | | | [place] [address] | | | | + + + + + + | MCHC | 34.1Comment: Testing | 32.0 - 35.5 | EXTERNAL | | | | performed at [facility], [address] | g/dL | LAB | | | | [address], | | | | | | [place] [address] | | | | + + + + + + | RDW-CV | 42.9Comment: Testing | 37 - 53 fl | EXTERNAL | | | | performed at [facility], [address] | | LAB | | | | [address], | | | | | | [place] [address] | | | | + + + + + + | Platelet | 294Comment: Testing | 150 - 400 K/uL | EXTERNAL | | | Count | performed at [facility], [address] | | LAB | | | Plasma | [address], | | | | | | [place] [address] | | | | + + + + + + | MPV | 8.9Comment: Testing | fl | EXTERNAL | | | | performed at [facility], [address] | | LAB | | | | [address], | | | | | | [place] [address] | | | | + + + + + + | Differentia | AUTOMATEDComment: | | EXTERNAL | | | l Type | Testing performed at | | LAB | | | | [facility], [address] | | | | | | [place] | | | | | | [address] | | | | + + + + + + | % Segmented | 60.23Comment: Testing | % | EXTERNAL | | | | performed at [facility], [address] | | LAB | | | Neutrophils | [address], | | | | | | [place] [address] | | | | + + + + + + | % | 28.36Comment: Testing | % | EXTERNAL | | | Lymphocytes | performed at [facility], [address] | | LAB | | | | [address], | | | | | | [place] [address] | | | | + + + + + + | % Monocytes | 9.19Comment: Testing | % | EXTERNAL | | | | performed at [facility], [address] | | LAB | | | | [address], | | | | | | [place] [address] | | | | + + + + + + | % | 1.49Comment: Testing | % | EXTERNAL | | | Eosinophils | performed at [facility], [address] | | LAB | | | | [address], | | | | | | [place] [address] | | | | + + + + + + | % Basophils | 0.73Comment: Testing | % | EXTERNAL | | | | performed at [facility], [address] | | LAB | | | | [address], | | | | | | [place] [address] | | | | + + + + + + | Absolute | 6.68Comment: Testing | 1.90 - 7.40 | EXTERNAL | | | Segmented | performed at [facility], [address] | K/uL | LAB | | | Neutrophils | [address], | | | | | | [place] [address] | | | | + + + + + + | Absolute | 3.15Comment: Testing | 1.00 - 3.90 | EXTERNAL | | | Lymphocytes | performed at [facility], [address] | K/uL | LAB | | | | [address], | | | | | | [place] [address] | | | | + + + + + + | Absolute | 1.02 (H)Comment: Testing | 0.00 - 0.80 | EXTERNAL | | | Monocytes | performed at [facility], [address] | K/uL | LAB | | | | [address], | | | | | | [place] [address] | | | | + + + + + + | Absolute | 0.17Comment: Testing | 0.00 - 0.50 | EXTERNAL | | | Eosinophils | performed at [facility], [address] | K/uL | LAB | | | | [address], | | | | | | [place] [address] | | | | + + + + + + | Absolute | 0.08Comment: Testing | 0.00 - 0.10 | EXTERNAL | | | Basophils | performed at [facility], [address] | K/uL | LAB | | | | [address], | | | | | | [place] [address] | | | | + + + + + + + + | Specimen | + + | Blood specimen | | (specimen) | + + + +---------+ + + | Performing | Address | City/State/Zipcode | Phone Number | | Organization | | | | + +---------+ + + | EXTERNAL LAB | | | | + +---------+ + + Magnesium (11/23/2015 5:04 AM PDT) + + + + + + | Component | Value | Ref Range | Performed | Pathologist | | | | | At | Signature | + + + + + + | Magnesium | 1.8Comment: SPECIMEN | 1.7 - 2.4 mg/dL | EXTERNAL | | | | SLIGHTLY | | LAB | | | | HEMOLYZEDTesting | | | | | | performed at [facility], [address] | | | | | | [address], | | | | | | [place] [address] | | | | + + + + + + + + | Specimen | + + | Blood specimen | | (specimen) | + + + +---------+ + + | Performing | Address | City/State/Zipcode | Phone Number | | Organization | | | | + +---------+ + + | EXTERNAL LAB | | | | + +---------+ + + Renal Function Panel (11/23/2015 5:04 AM PDT) + + + + + + | Component | Value | Ref Range | Performed | Pathologist | | | | | At | Signature | + + + + + + | Na | 143Comment: Testing | 135 - 145 | EXTERNAL | | | | performed at [facility], [address] | mmol/L | LAB | | | | [address], | | | | | | [place] [address] | | | | + + + + + + | K | 3.3 (L)Comment: SPECIMEN | 3.5 - 4.9 | EXTERNAL | | | | SLIGHTLY | mmol/L | LAB | | | | HEMOLYZEDTesting | | | | | | performed at [facility], [address] | | | | | | [address], | | | | | | [place] [address] | | | | + + + + + + | Cl | 107Comment: Testing | 99 - 109 mmol/L | EXTERNAL | | | | performed at [facility], [address] | | LAB | | | | [address], | | | | | | [place] [address] | | | | + + + + + + | CO2 | 28Comment: Testing | 23 - 32 mmol/L | EXTERNAL | | | | performed at [facility], [address] | | LAB | | | | [address], | | | | | | [place] [address] | | | | + + + + + + | Anion Gap | 11Comment: Testing | 5 - 20 mmol/L | EXTERNAL | | | | performed at [facility], [address] | | LAB | | | | [address], | | | | | | [place] [address] | | | | + + + + + + | Glucose, | 115 (H)Comment: SPECIMEN | 65 - 99 mg/dL | EXTERNAL | | | Fasting | SLIGHTLY | | LAB | | | | HEMOLYZEDTesting | | | | | | performed at [facility], [address] | | | | | | [address], | | | | | | [place] [address] | | | | + + + + + + | BUN | 5 (L)Comment: Testing | 8 - 25 mg/dL | EXTERNAL | | | | performed at [facility], [address] | | LAB | | | | [address], | | | | | | [place] [address] | | | | + + + + + + | Creatinine | 0.6Comment: SPECIMEN | 0.50 - 1.00 | EXTERNAL | | | | SLIGHTLY | mg/dL | LAB | | | | HEMOLYZEDTesting | | | | | | performed at [facility], [address] | | | | | | [address], | | | | | | [place] [address] | | | | + + + + + + | Calcium | 9.0Comment: Testing | 8.5 - 10.5 | EXTERNAL | | | | performed at [facility], [address] | mg/dL | LAB | | | | [address], | | | | | | [place] [address] | | | | + + + + + + | Albumin | 3.0 (L)Comment: Testing | 3.3 - 4.8 g/dL | EXTERNAL | | | | performed at [facility], [address] | | LAB | | | | [address], | | | | | | [place] [address] | | | | + + + + + + | PHOSPHORUS | 2.8Comment: SPECIMEN | 2.3 - 4.8 mg/dL | EXTERNAL | | | | SLIGHTLY | | LAB | | | | HEMOLYZEDTesting | | | | | | performed at [facility], [address] | | | | | | [address], | | | | | | [place] [id number] | | | | + + + [...] | | | | | | [address], | | | | | | [place] [address] | | | | + + + + + + + + | Specimen | + + | | + + + +---------+ + + | Performing | Address | City/State/Zipcode | Phone Number | | Organization | | | | + +---------+ + + | EXTERNAL LAB | | | | + +---------+ + + POC Glucose (11/22/2015 9:00 PM PDT) + + + + + + | Component | Value | Ref Range | Performed | Pathologist | | | | | At | Signature | + + + + + + | Glucose, | 128 (H)Comment: Testing | 65 - 99 mg/dL | EXTERNAL | | | Fingerstick | performed at [facility];[address] | | | [address];[place], [place] | | | | | | [address] | | | | + + + + + + + + | Specimen | + + | | + + + +---------+ + + | Performing | Address | City/State/Zipcode | Phone Number | | Organization | | | | + +---------+ + + | EXTERNAL LAB | | | | + +---------+ + + POC Glucose (11/22/2015 4:21 PM PDT) + + + + + + | Component | Value | Ref Range | Performed | Pathologist | | | | | At | Signature | + + + + + + | Glucose, | 123 (H)Comment: Testing | 65 - 99 mg/dL | EXTERNAL | | | Fingerstick | performed at [facility] [facility] | | LAB | | | | [place] [address] | | | | | | [address] | | | | + + + + + + + + | Specimen | + + | | + + + +---------+ + + | Performing | Address | City/State/Zipcode | Phone Number | | Organization | | | | + +---------+ + + | EXTERNAL LAB | | | | + +---------+ + + POC Glucose (11/22/2015 11:24 AM PDT) + + + + + + | Component | Value | Ref Range | Performed | Pathologist | | | | | At | Signature | + + + + + + | Glucose, | 151 (H)Comment: Testing | 65 - 99 mg/dL | EXTERNAL | | | Fingerstick | performed at [facility];[address] | | LAB | | | | [address];[place], [place] | | | | | | [address] | | | | + + + + + + + + | Specimen | + + | | + + + +---------+ + + | Performing | Address | City/State/Zipcode | Phone Number | | Organization | | | | + +---------+ + + | EXTERNAL LAB | | | | + +---------+ + + POC Glucose (11/22/2015 5:26 AM PDT) + + + + + + | Component | Value | Ref Range | Performed | Pathologist | | | | | At | Signature | + + + + + + | Glucose, | 131 (H)Comment: Testing | 65 - 99 mg/dL | EXTERNAL | | | Fingerstick | performed at [facility];[address] | | LAB | | | | [place] [address];[place] | | | | | | [address] | | | | + + + + + + + + | Specimen | + + | | + + + +---------+ + + | Performing | Address | City/State/Zipcode | Phone Number | | Organization | | | | + +---------+ + + | EXTERNAL LAB | | | | + +---------+ + + External Lab: CBC (11/22/2015 5:05 AM PDT) + + + + + + | Component | Value | Ref Range | Performed | Pathologist | | | | | At | Signature | + + + + + + | WBC | 11.20 (H)Comment: | 3.80 - 11.00 | EXTERNAL | | | | Testing performed at | K/uL | LAB | | | | [facility], [address] [facility] | | | | | | [place] | | | | | | [address] | | | | + + + + + + | RED CELL | 4.52Comment: Testing | 3.70 - 5.10 | EXTERNAL | | | COUNT | performed at [facility], [address] | M/uL | LAB | | | | [address], | | | | | | [place] [address] | | | | + + + + + + | Hgb | 14.2Comment: Testing | 11.3 - 15.5 | EXTERNAL | | | | performed at [facility], [address] | g/dL | LAB | | | | [address], | | | | | | [place] [address] | | | | + + + + + + | Hematocrit, | 41.8Comment: Testing | 34.0 - 46.0 % | EXTERNAL | | | POC | performed at [facility], [address] | | LAB | | | | [address], | | | | | | [place] [address] | | | | + + + + + + | MCV | 92.5Comment: Testing | 80.0 - 100.0 fl | EXTERNAL | | | | performed at [facility], [address] | | LAB | | | | [address], | | | | | | [place] [address] | | | | + + + + + + | MCH | 31.3Comment: Testing | 27.0 - 34.0 pg | EXTERNAL | | | | performed at [facility], [address] | | LAB | | | | [address], | | | | | | [place] [address] | | | | + + + + + + | MCHC | 33.9Comment: Testing | 32.0 - 35.5 | EXTERNAL | | | | performed at [facility], [address] | g/dL | LAB | | | | [address], | | | | | | [place] [address] | | | | + + + + + + | RDW-CV | 42.9Comment: Testing | 37 - 53 fl | EXTERNAL | | | | performed at [facility], [address] | | LAB | | | | [address], | | | | | | [place] [address] | | | | + + + + + + | Platelet | 298Comment: Testing | 150 - 400 K/uL | EXTERNAL | | | Count | performed at [facility], [address] | | LAB | | | Plasma | [address], | | | | | | [place] [address] | | | | + + + + + + | MPV | 8.8Comment: Testing | fl | EXTERNAL | | | | performed at [facility], [address] | | LAB | | | | [address], | | | | | | [place] [address] | | | | + + + + + + | Differentia | AUTOMATEDComment: | | EXTERNAL | | | l Type | Testing performed at | | LAB | | | | [facility], [address] | | | | | | [place] | | | | | | [address] | | | | + + + + + + | % Segmented | 67.53Comment: Testing | % | EXTERNAL | | | | performed at [facility], [address] | | LAB | | | Neutrophils | [address], | | | | | | [place] [address] | | | | + + + + + + | % | 22.66Comment: Testing | % | EXTERNAL | | | Lymphocytes | performed at [facility], [address] | | LAB | | | | [address], | | | | | | [place] [address] | | | | + + + + + + | % Monocytes | 9.12Comment: Testing | % | EXTERNAL | | | | performed at [facility], [address] | | LAB | | | [address], | | | | | | [place] [address] | | | | + + + + + + | % | 0.43Comment: Testing | % | EXTERNAL | | | Eosinophils | performed at [facility], [address] | | LAB | | | | [address], | | | | | | [place] [address] | | | | + + + + + + | % Basophils | 0.26Comment: Testing | % | EXTERNAL | | | | performed at [facility], [address] | | LAB | | | | [address], | | | | | | [place] [address] | | | | + + + + + + | Absolute | 7.56 (H)Comment: Testing | 1.90 - 7.40 | EXTERNAL | | | Segmented | performed at [facility], [address] | K/uL | LAB | | | Neutrophils | [address], | | | | | | [place] [address] | | | | + + + + + + | Absolute | 2.54Comment: Testing | 1.00 - 3.90 | EXTERNAL | | | Lymphocytes | performed at [facility], [address] | K/uL | LAB | | | | [address], | | | | | | [place] [address] | | | | + + + + + + | Absolute | 1.02 (H)Comment: Testing | 0.00 - 0.80 | EXTERNAL | | | Monocytes | performed at [facility], [address] | [address] | LAB | | | | [address], | | | | | | [place] [address] | | | | + + + + + + | Absolute | 0.05Comment: Testing | 0.00 - 0.50 | EXTERNAL | | | Eosinophils | performed at [facility], [address] | K/uL | LAB | | | | [address], | | | | | | [place] [address] | | | | + + + + + + | Absolute | 0.03Comment: Testing | 0.00 - 0.10 | EXTERNAL | | | Basophils | performed at [facility], [address] | K/uL | LAB | | | | [address], | | | | | | [place] [address] | | | | + + + + + + + + | Specimen | + + | | + + + +---------+ + + | Performing | Address | City/State/Zipcode | Phone Number | | Organization | | | | + +---------+ + + | EXTERNAL LAB | | | | + +---------+ + + Renal Function Panel (11/22/2015 5:05 AM PDT) + + + + + + | Component | Value | Ref Range | Performed | Pathologist | | | | | At | Signature | + + + + + + | Na | 143Comment: Testing | 135 - 145 | EXTERNAL | | | | performed at [facility], [address] | mmol/L | LAB | | | | [address], | | | | | | [place] [address] | | | | + + + + + + | K | 3.5Comment: SPECIMEN | 3.5 - 4.9 | EXTERNAL | | | | SLIGHTLY | mmol/L | LAB | | | | HEMOLYZEDTesting | | | | | | performed at [facility], [address] | | | | | | [place], | | | | | | [place] [address] | | | | + + + + + + | Cl | 110 (H)Comment: Testing | 99 - 109 mmol/L | EXTERNAL | | | | performed at [facility], [address] | | LAB | | | | [address], | | | | | | [place] [address] | | | | + + + + + + | CO2 | 24Comment: Testing | 23 - 32 mmol/L | EXTERNAL | | | | performed at [facility], [address] | | LAB | | | | [address], | | | | | | [place] [address] | | | | + + + + + + | Anion Gap | 13Comment: Testing | 5 - 20 mmol/L | EXTERNAL | | | | performed at [facility], [address] | | LAB | | | | [address], | | | | | | [place] [address] | | | | + + + + + + | Glucose, | 131 (H)Comment: SPECIMEN | 65 - 99 mg/dL | EXTERNAL | | | Fasting | SLIGHTLY | | LAB | | | | HEMOLYZEDTesting | | | | | | performed at [facility], [address] | | | | | | [address], | | | | | | [place] [address] | | | | + + + + + + | BUN | 8Comment: Testing | 8 - 25 mg/dL | EXTERNAL | | | | performed at [facility], [address] | | LAB | | | | [address], | | | | | | [place] [address] | | | | + + + + + + | Creatinine | 0.6Comment: SPECIMEN | 0.50 - 1.00 | EXTERNAL | | | | SLIGHTLY | mg/dL | LAB | | | | HEMOLYZEDTesting | | | | | | performed at [facility], [address] | | | | | | [address], | | | | | | [place] [address] | | | | + + + + + + | Calcium | 8.9Comment: Testing | 8.5 - 10.5 | EXTERNAL | | | | performed at [facility], [address] | mg/dL | LAB | | | | [address], | | | | | | [place] [address] | | | | + + + + + + | Albumin | 2.8 (L)Comment: Testing | 3.3 - 4.8 g/dL | EXTERNAL | | | | performed at [facility], [address] | | LAB | | | | [facility], | | | | | | [place] [address] | | | | + + + + + + | PHOSPHORUS | 2.0 (L)Comment: SPECIMEN | 2.3 - 4.8 mg/dL | EXTERNAL | | | | SLIGHTLY | | LAB | | | | HEMOLYZEDTesting | | | | | | performed at [facility], [address] | | | | | | [facility], | | | | | | [place] [address] | | | | + + + [...] | | | | | | [address], | | | | | | [place] [address] | | | | + + + + + + + + | Specimen | + + | Blood specimen | | (specimen) | + + + +---------+ + + | Performing | Address | City/State/Zipcode | Phone Number | | Organization | | | | + +---------+ + + | EXTERNAL LAB | | | | + +---------+ + + HISTORICAL MICROBIOLOGY RESULT (11/21/2015 9:54 PM PDT) + + | Specimen | + + | | + + + + + | Narrative | Performed At | + + + | GDH ANTIGEN NEGATIVE Testing | EXTERNAL LAB | | performed at [facility];[address] [place] [address];[place] [address] TOXIN A | | | NEGATIVE Testing performed at | | | [facility];[address] [place] [address];[place] [address] C DIFF INTERPRETATION | | | Negative for toxigenic C.difficile. Testing performed at | | | [facility];[address] [place] [address];[place] [address] | | + + + + +---------+ + + | Performing | Address | City/State/Zipcode | Phone Number | | Organization | | | | + +---------+ + + | EXTERNAL LAB | | | | + +---------+ + + POC Glucose (11/21/2015 9:44 PM PDT) + + + + + + | Component | Value | Ref Range | Performed | Pathologist | | | | | At | Signature | + + + + + + | Glucose, | 132 (H)Comment: Testing | 65 - 99 mg/dL | EXTERNAL | | | Fingerstick | performed at [facility];[address] | | LAB | | | | [address];[place] | | | | | | [address] | | | | + + + + + + + + | Specimen | + + | | + + + +---------+ + + | Performing | Address | City/State/Zipcode | Phone Number | | Organization | | | | + +---------+ + + | EXTERNAL LAB | | | | + +---------+ + + Potassium (11/21/2015 5:35 PM PDT) + + + + + + | Component | Value | Ref Range | Performed | Pathologist | | | | | At | Signature | + + + + + + | K | 3.1 (L)Comment: Testing | 3.5 - 4.9 | EXTERNAL | | | | performed at [facility], [address] | mmol/L | LAB | | | | [address], | | | | | | [place] [address] | | | | + + + + + + + + | Specimen | + + | Blood specimen | | (specimen) | + + + +---------+ + + | Performing | Address | City/State/Zipcode | Phone Number | | Organization | | | | + +---------+ + + | EXTERNAL LAB | | | | + +---------+ + + POC Glucose (11/21/2015 4:29 PM PDT) + + + + + + | Component | Value | Ref Range | Performed | Pathologist | | | | | At | Signature | + + + + + + | Glucose, | 209 (H)Comment: Testing | 65 - 99 mg/dL | EXTERNAL | | | Fingerstick | performed at [facility];[address] | | LAB | | | | [address];[place], [place] | | | | | | [address] | | | | + + + + + + + + | Specimen | + + | | + + + +---------+ + + | Performing | Address | City/State/Zipcode | Phone Number | | Organization | | | | + +---------+ + + | EXTERNAL LAB | | | | + +---------+ + + POC Glucose (11/21/2015 10:57 AM PDT) + + + + + + | Component | Value | Ref Range | Performed | Pathologist | | | | | At | Signature | + + + + + + | Glucose, | 210 (H)Comment: Testing | 65 - 99 mg/dL | EXTERNAL | | | Fingerstick | performed at [facility];[address] | | LAB | | | | [place] [address];[place] | | | | | | [address] | | | | + + + + + + + + | Specimen | + + | | + + + +---------+ + + | Performing | Address | City/State/Zipcode | Phone Number | | Organization | | | | + +---------+ + + | EXTERNAL LAB | | | | + +---------+ + + POC Glucose (11/21/2015 5:22 AM PDT) + + + + + + | Component | Value | Ref Range | Performed | Pathologist | | | | | At | Signature | + + + + + + | Glucose, | 172 (H)Comment: Testing | 65 - 99 mg/dL | EXTERNAL | | | Fingerstick | performed at [facility];[address] | | LAB | | | | [address];[place], [place] | | | | | | [address] | | | | + + + + + + + + | Specimen | + + | | + + + +---------+ + + | Performing | Address | City/State/Zipcode | Phone Number | | Organization | | | | + +---------+ + + | EXTERNAL LAB | | | | + +---------+ + + External Lab: CBC (11/21/2015 4:58 AM PDT) + + + + + + | Component | Value | Ref Range | Performed | Pathologist | | | | | At | Signature | + + + + + + | WBC | 12.70 (H)Comment: | 3.80 - 11.00 | EXTERNAL | | | | Testing performed at | K/uL | LAB | | | | [facility], [address] [facility] | | | | | | [place] | | | | | | [address] | | | | + + + + + + | RED CELL | 4.67Comment: Testing | 3.70 - 5.10 | EXTERNAL | | | COUNT | performed at [facility], [address] | M/uL | LAB | | | | [address], | | | | | | [place] [address] | | | | + + + + + + | Hgb | 14.6Comment: Testing | 11.3 - 15.5 | EXTERNAL | | | | performed at [facility], [address] | g/dL | LAB | | | | [address], | | | | | | [place] [address] | | | | + + + + + + | Hematocrit, | 42.8Comment: Testing | 34.0 - 46.0 % | EXTERNAL | | | POC | performed at [facility], [address] | | LAB | | | | [address], | | | | | | [place] [address] | | | | + + + + + + | MCV | 91.6Comment: Testing | 80.0 - 100.0 fl | EXTERNAL | | | | performed at [facility], [address] | | LAB | | | | [address] [place], | | | | | | [place] [address] | | | | + + + + + + | MCH | 31.2Comment: Testing | 27.0 - 34.0 pg | EXTERNAL | | | | performed at [facility], [address] | | LAB | | | | [address], | | | | | | [place] [address] | | | | + + + + + + | MCHC | 34.1Comment: Testing | 32.0 - 35.5 | EXTERNAL | | | | performed at [facility], [address] | g/dL | LAB | | | | [address], | | | | | | [place] [address] | | | | + + + + + + | RDW-CV | 42.9Comment: Testing | 37 - 53 fl | EXTERNAL | | | | performed at [facility], [address] | | LAB | | | | [address], | | | | | | [place] [address] | | | | + + + + + + | Platelet | 313Comment: Testing | 150 - 400 K/uL | EXTERNAL | | | Count | performed at [facility], [address] | | LAB | | | Plasma | [address], | | | | | | [place] [address] | | | | + + + + + + | MPV | 8.4Comment: Testing | fl | EXTERNAL | | | | performed at [facility], [address] | | LAB | | | | [address], | | | | | | [place] [address] | | | | + + + + + + | Differentia | AUTOMATEDComment: | | EXTERNAL | | | l Type | Testing performed at | | LAB | | | | [facility], [address] | | | | | | [place] | | | | | | [address] | | | | + + + + + + | % Segmented | 63.65Comment: Testing | % | EXTERNAL | | | | performed at [facility], [address] | | LAB | | | Neutrophils | [address], | | | | | | [place] [address] | | | | + + + + + + | % | 25.97Comment: Testing | % | EXTERNAL | | | Lymphocytes | performed at [facility], [address] | | LAB | | | | [place] [place], | | | | | | [place] [address] | | | | + + + + + + | % Monocytes | 9.67Comment: Testing | % | EXTERNAL | | | | performed at [facility], [address] | | LAB | | | | [place] [place], | | | | | | [place] [address] | | | | + + + + + + | % | 0.35Comment: Testing | % | EXTERNAL | | | Eosinophils | performed at [facility], [address] | | LAB | | | | [address], | | | | | | [place] [address] | | | | + + + + + + | % Basophils | 0.36Comment: Testing | % | EXTERNAL | | | | performed at [facility], [address] | | LAB | | | | [address], | | | | | | [place] [address] | | | | + + + + + + | Absolute | 8.09 (H)Comment: Testing | 1.90 - 7.40 | EXTERNAL | | | Segmented | performed at [facility], [address] | [address] | LAB | | | Neutrophils | [address], | | | | | | [place] [address] | | | | + + + + + + | Absolute | 3.30Comment: Testing | 1.00 - 3.90 | EXTERNAL | | | Lymphocytes | performed at [facility], [address] | K/uL | LAB | | | | [address], | | | | | | [place] [address] | | | | + + + + + + | Absolute | 1.23 (H)Comment: Testing | 0.00 - 0.80 | EXTERNAL | | | Monocytes | performed at [facility], [address] | [address] | LAB | | | | [address], | | | | | | [place] [address] | | | | + + + + + + | Absolute | 0.04Comment: Testing | 0.00 - 0.50 | EXTERNAL | | | Eosinophils | performed at [facility], [address] | K/uL | LAB | | | | [address], | | | | | | [place] [address] | | | | + + + + + + | Absolute | 0.05Comment: Testing | 0.00 - 0.10 | EXTERNAL | | | Basophils | performed at [facility], [address] | K/uL | LAB | | | | [address], | | | | | | [place] [address] | | | | + + + [...] + +---------+ + + Basic Metabolic Panel (11/21/2015 4:58 AM PDT) + + + + + + | Component | Value | Ref Range | Performed | Pathologist | | | | | At | Signature | + + + + + + | Na | 139Comment: Testing | 135 - 145 | EXTERNAL | | | | performed at [facility], [address] | mmol/L | LAB | | | | [address] [place], | | | | | | [place] [address] | | | | + + + + + + | K | 3.2 (L)Comment: Testing | 3.5 - 4.9 | EXTERNAL | | | | performed at [facility], [address] | mmol/L | LAB | | | | [address] [place], | | | | | | [place] [address] | | | | + + + + + + | Cl | 102Comment: Testing | 99 - 109 mmol/L | EXTERNAL | | | | performed at [facility], [address] | | LAB | | | | [address], | | | | | | [place] [address] | | | | + + + + + + | CO2 | 28Comment: Testing | 23 - 32 mmol/L | EXTERNAL | | | | performed at [facility], [address] | | LAB | | | | [address], | | | | | | [place] [address] | | | | + + + + + + | Anion Gap | 12Comment: Testing | 5 - 20 mmol/L | EXTERNAL | | | | performed at [facility], [address] | | LAB | | | [address], | | | | | | [place] [address] | | | | + + + + + + | Glucose, | 186 (H)Comment: Testing | 65 - 99 mg/dL | EXTERNAL | | | Fasting | performed at [facility], [address] | | LAB | | | | [address], | | | | | | [place] [address] | | | | + + + + + + | BUN | 12Comment: Testing | 8 - 25 mg/dL | EXTERNAL | | | | performed at [facility], [address] | | LAB | | | | [address], | | | | | | [place] [address] | | | | + + + + + + | Creatinine | 0.7Comment: Testing | 0.50 - 1.00 | EXTERNAL | | | | performed at [facility], [address] | mg/dL | LAB | | | | [address], | | | | | | [place] [address] | | | | + + + + + + | BUN/Creatin | 17Comment: Testing | | EXTERNAL | | | ine Ratio | performed at [facility], [address] | | LAB | | | | [address], | | | | | | [place] [address] | | | | + + + + + + | Calcium | 8.8Comment: Testing | 8.5 - 10.5 | EXTERNAL | | | | performed at [facility], [address] | mg/dL | LAB | | | | [address] [facility], | | | | | | [place] [address] | | | | + + + [...] | | | | | | [address] [facility], | | | | | | [place] [address] | | | | + + + + + + + + | Specimen | + + | Blood specimen | | (specimen) | + + + +---------+ + + | Performing | Address | City/State/Zipcode | Phone Number | | Organization | | | | + +---------+ + + | EXTERNAL LAB | | | | + +---------+ + + POC Glucose (11/20/2015 9:22 PM PDT) + + + + + + | Component | Value | Ref Range | Performed | Pathologist | | | | | At | Signature | + + + + + + | Glucose, | 189 (H)Comment: Testing | 65 - 99 mg/dL | EXTERNAL | | | Fingerstick | performed at [facility];[address] | | LAB | | | | [address];[place] | | | | | | [address] | | | | + + + + + + + + | Specimen | + + | | + + + +---------+ + + | Performing | Address | City/State/Zipcode | Phone Number | | Organization | | | | + +---------+ + + | EXTERNAL LAB | | | | + +---------+ + + POC Glucose (11/20/2015 5:21 PM PDT) + + + + + + | Component | Value | Ref Range | Performed | Pathologist | | | | | At | Signature | + + + + + + | Glucose, | 163 (H)Comment: Testing | 65 - 99 mg/dL | EXTERNAL | | | Fingerstick | performed at [facility];[address] | | LAB | | | | [address];[place] | | | | | | [address] | | | | + + + + + + + + | Specimen | + + | | + + + +---------+ + + | Performing | Address | City/State/Zipcode | Phone Number | | Organization | | | | + +---------+ + + | EXTERNAL LAB | | | | + +---------+ + + Helicobacter Pylori AB, IgG (11/20/2015 12:51 PM PDT) + + + + + + | Component | Value | Ref Range | Performed | Pathologist | | | | | At | Signature | + + + + + + | H PYLORI | 181.1 (H)Comment: Unit: | 0.0 - 20.0 | EXTERNAL | | | IGA | UNITS 25.0 OR GREATER | | LAB | | | | POSITIVE: IGA | | | | | | ANTIBODY TO H. PYLORI | | | | | | DETECTED,SUGGESTIVE OF | | | | | | ACTIVE INFECTION. | | | | | | HELICOBACTER PYLORI IGG | | | | | | AND IGASEROCONVERSION | | | | | | BOTH OCCUR ABOUT 2 | | | | | | MONTHS AFTER INFECTION. | | | | | | HOWEVER, APOSITIVE H. | | | | | | PYLORI IGA RESULT CAN | | | | | | ONLY SUGGEST ACTIVE | | | | | | INFECTION ANDSHOULD BE | | | | | | CONFIRMED BY BACTERIAL | | | | | | ISOLATION OR OTHER | | | | | | DIAGNOSTICTESTING.THE | | | | | | [employer] | | | | | | GASTROENTEROLOG[employer] ([employer]) | | | | | | NO LONGER | | | | | | RECOMMENDSSEROLOGY FOR | | | | | | DETECTION OF H. PYLORI | | | | | | INFECTION. THE UREA | | | | | | BREATH TEST(UBT) AND | | | | | | STOOL ANTIGEN TEST ARE | | | | | | RECOMMENDED BY BOTH THE | | | | | | [employer] | | | | | | [employer] ([employer]) | | | | | | AND THE [employer] THE | | | | | | PREFERREDNON-INVASIVE | | | | | | TESTS FOR DIAGNOSIS AND | | | | | | CONFIRMATION OF | | | | | | ERADICATION.Testing | | | | | | performed at [facility], [address] | | | | | | [address] | | | | | | [place] [address] | | | | + + + + + + | H PYLORI | 110.8 (H)Comment: Unit: | 0.0 - 20.0 | EXTERNAL | | | IGG | UNITS 25.0 OR GREATER | | LAB | | | | POSITIVE: IGG | | | | | | ANTIBODY TO H. PYLORI | | | | | | DETECTED,SUGGESTIVE OF | | | | | | PREVIOUS EXPOSURE OR | | | | | | ACTIVE INFECTION. A | | | | | | POSITIVESEROLOGIC RESULT | | | | | | FOR H. PYLORI CANNOT | | | | | | DISTINGUISH CURRENT FROM | | | | | | PASTINFECTION AND | | | | | | CANNOT BE USED TO ASSESS | | | | | | RESPONSE THERAPY. | | | | | | CULTURE,BREATH, OR STOOL | | | | | | ANTIGEN TESTS SHOULD BE | | | | | | USED FOR THESE | | | | | | PURPOSES.THE [employer] | | | | | | [employer] | | | | | | [employer]STROENTER[employer] ([facility]) | | | | | | NO LONGER | | | | | | RECOMMENDSSEROLOGY FOR | | | | | | DETECTION OF H. PYLORI | | | | | | INFECTION. THE [facility] | | | | | | BREATH TEST(UBT) AND | | | | | | STOOL ANTIGEN TEST ARE | | | | | | RECOMMENDED BY BOTH THE | | | | | | [employer] | | | | | | [employer] ([employer]) | | | | | | AND THE [facility] THE | | | | | | PREFERREDNON-INVASIVE | | | | | | TESTS FOR DIAGNOSIS AND | | | | | | CONFIRMATION OF | | | | | | ERADICATION.Testing | | | | | | performed at [facility], [address] | | | | | [address] [place] | | | | | | [place] [address] | | | | + + + + + + + + | Specimen | + + | | + + + +---------+ + + | Performing | Address | City/State/Zipcode | Phone Number | | Organization | | | | + +---------+ + + | EXTERNAL LAB | | | | + +---------+ + + Phosphorus (11/20/2015 12:51 PM PDT) + + + + + + | Component | Value | Ref Range | Performed | Pathologist | | | | | At | Signature | + + + + + + | PHOSPHORUS | 2.4Comment: Testing | 2.3 - 4.8 mg/dL | EXTERNAL | | | | performed at [facility], [address] | | LAB | | | | [address], | | | | | | [place] [id number] | | | | + + + + + + + + | Specimen | + + | Blood specimen | | (specimen) | + + + +---------+ + + | Performing | Address | City/State/Zipcode | Phone Number | | Organization | | | | + +---------+ + + | EXTERNAL LAB | | | | + +---------+ + + Magnesium (11/20/2015 12:51 PM PDT) + + + + + + | Component | Value | Ref Range | Performed | Pathologist | | | | | At | Signature | + + + + + + | Magnesium | 1.7Comment: Testing | 1.7 - 2.4 mg/dL | EXTERNAL | | | | performed at [facility], [address] | | LAB | | | | [address], | | | | | | [place] [id number] | | | | + + + [...] + + Urinalysis, Reflex Microscopic and/or Culture (11/20/2015 11:15 AM PDT) + + + + + + | Component | Value | Ref Range | Performed | Pathologist | | | | | At | Signature | + + + + + + | Color | COLORLESSComment: | | EXTERNAL | | | | Testing performed at | | LAB | | | | [facility];[address] | | | | | | [place] [address] | | | | + + + + + + | Clarity | CLEARComment: Testing | | EXTERNAL | | | | performed at [facility];[address] | | LAB | | | | [address];[place] | | | | | | [id number] | | | | + + + + + + | Specific | 1.009Comment: Testing | 1.002 - 1.030 | EXTERNAL | | | [place] | performed at [facility];[address] | | LAB | | | | [address];[place] | | | | | | [address] | | | | + + + + + + | Leukocyte | NEGATIVEComment: Testing | | EXTERNAL | | | Esterase, | performed at [facility];[address] | | LAB | | | Urine | [address];[place] | | | | | | [address] | | | | + + + + + + | Nitrite, | NEGATIVEComment: Testing | | EXTERNAL | | | Urine | performed at [facility];[address] | | LAB | | | | [address];[place] | | | | | | [address] | | | | + + + + + + | Urobilinoge | NORMALComment: Testing | mg/dL | EXTERNAL | | | n, Urine | performed at [facility];[address] | | LAB | | | | [address];[place] | | | | | | [address] | | | | + + + + + + | Protein, | NEGATIVEComment: Testing | mg/dL | EXTERNAL | | | Urine | performed at [facility];[address] | | LAB | | | | [address];[place] | | | | | | [address] | | | | + + + + + + | pH, Urine | 7.0Comment: Testing | 5.0 - 8.0 | EXTERNAL | | | | performed at [facility];[address] | | LAB | | | | [address];[place] | | | | | | [address] | | | | + + + + + + | Blood, | SMALL (A)Comment: | | EXTERNAL | | | Urine | Testing performed at | | LAB | | | | [facility];[address];[place] [address] | | | | + + + + + + | Ketones | 20 (A)Comment: Testing | mg/dL | EXTERNAL | | | | performed at [facility];[address] | | LAB | | | | [address];[place] | | | | | | [address] | | | | + + + + + + | Bilirubin, | NEGATIVEComment: Testing | | EXTERNAL | | | Urine | performed at [facility];[address] | | LAB | | | | [address];[place] | | | | | | [address] | | | | + + + + + + | Glucose, | >500 (A)Comment: Testing | mg/dL | EXTERNAL | | | Urine | performed at [facility];[address] | | LAB | | | | [address];[place] | | | | | | [address] | | | | + + + + + + | WBC, UA | 0-2Comment: Testing | 0 - 5 /hpf | EXTERNAL | | | | performed at [facility];[address] | | LAB | | | | [address];[place] | | | | | | [address] | | | | + + + + + + | RBC, UA | 0-2Comment: Testing | 0 - 5 /hpf | EXTERNAL | | | | performed at [facility];[address] | | LAB | | | | [address];[place] | | | | | | [address] | | | | + + + + + + | Bacteria, | 1+ (A)Comment: Testing | | EXTERNAL | | | UA | performed at [facility];[address] | | LAB | | | | [address];[place] | | | | | | [address] | | | | + + + + + + | Epithelial | 3-5Comment: Testing | /lpf | EXTERNAL | | | Cells | performed at [facility];[address] | | LAB | | | | [address];[place] | | | | | | [address] | | | | + + + + + + | MUCUS UA | 1+Comment: Testing | | EXTERNAL | | | | performed at [facility] | | LAB | | | | [address];[place], [place] | | | | | | [address] | | | | + + + + + + + + | Specimen | + + | | + + + +---------+ + + | Performing | Address | City/State/Zipcode | Phone Number | | Organization | | | | + +---------+ + + | EXTERNAL LAB | | | | + +---------+ + + Lactic Acid (11/20/2015 8:15 AM PDT) + + + + + + | Component | Value | Ref Range | Performed | Pathologist | | | | | At | Signature | + + + + + + | Lactate | 1.4Comment: Testing | 0.4 - 2.0 | EXTERNAL | | | | performed at [facility];[address] | mmol/L | LAB | | | | [address];[place], [place] | | | | | | [address] | | | | + + + + + + + + | Specimen | + + | | + + + +---------+ + + | Performing | Address | City/State/Zipcode | Phone Number | | Organization | | | | + +---------+ + + | EXTERNAL LAB | | | | + +---------+ + + XR Chest 2 Vws (11/20/2015 7:59 AM PDT) + + | Specimen | + + | | + + + + + | Impressions | Performed At | + + + | 1. No active disease. | | + + + + + + | Narrative | Performed At | + + + | HISTORY: Chest pain. COMPARISON: CT abdomen and pelvis | | | 11/16/15. Right shoulder 03/27/15. TECHNIQUE: PA and lateral | | | films of the chest. FINDINGS: Lungs are clear. Heart size is | | | normal. 2 level fusion lower cervical spine. Subtle degenerative | | | changes of the thoracic spine. | | + + + + + | Procedure Note | + + | Niraj Lepe Conversion - 11/23/2018 9:08 AM PDT HISTORY:Chest pain. COMPARISON:CT | | abdomen and pelvis 11/16/15. Right shoulder 03/27/15. TECHNIQUE:PA and lateral films of | | the chest. FINDINGS:Lungs are clear. Heart size is normal. 2 level fusion lower cervical | | spine. Subtle degenerative changes of the thoracic spine. IMPRESSION: 1. No active | | disease. | | | |TECHNIQUE: | |PA and lateral films of the chest. | | | |FINDINGS: | |Lungs are clear. Heart size is normal. 2 level fusion lower cervical spine. Subtle degenera tive changes of the thoracic spine. | | | |IMPRESSION: | |1. No active disease. | | | | | + + HISTORICAL LAB PANEL RESULT (11/20/2015 7:21 AM PDT) + + + + + -+ | Component | Value | Ref Range | Performed | Pathologist | | | | | At | Signature | + + + + + -+ | WBC | 15.89 (H)Comment: | 3.80 - 11.00 | EXTERNAL | | | | Testing performed at | K/uL | LAB | | | | [facility];[address];[place] [address] | | | | + + + + + -+ | RED CELL | 5.38 (H)Comment: Testing | 3.70 - 5.10 | EXTERNAL | | | COUNT | performed at [facility];[address] | M/uL | LAB | | | | [address];[place] | | | | | | [address] | | | | + + + + + -+ | Hgb | 16.6 (H)Comment: Testing | 11.3 - 15.5 | EXTERNAL | | | | performed at [facility];[address] | g/dL | LAB | | | | [address];[place] | | | | | | [address] | | | | + + + + + -+ | Hematocrit, | 48.3 (H)Comment: Testing | 34.0 - 46.0 % | EXTERNAL | | | POC | performed at [facility];[address] | | LAB | | | | [address];[place] | | | | | | [address] | | | | + + + + + -+ | MCV | 89.8Comment: Testing | 80.0 - 100.0 fl | EXTERNAL | | | | performed at [facility];[address] | | LAB | | | | [address];[place] | | | | | | [address] | | | | + + + + + -+ | MCH | 30.9Comment: Testing | 27.0 - 34.0 pg | EXTERNAL | | | | performed at [facility];[address] | | LAB | | | | [address];[place] | | | | | | [address] | | | | + + + + + -+ | MCHC | 34.4Comment: Testing | 32.0 - 35.5 | EXTERNAL | | | | performed at [facility];888 | g/dL | LAB | | | | [address];[place] | | | | | | [address] | | | | + + + + + -+ | RDW-CV | 42.4Comment: Testing | 37 - 53 fl | EXTERNAL | | | | performed at [facility];[address] | | LAB | | | | [address];[place] | | | | | | [address] | | | | + + + + + -+ | Platelet | 346Comment: Testing | 150 - 400 K/uL | EXTERNAL | | | Count | performed at [facility];[address] | | LAB | | | Plasma | [address];[place] | | | | | | [address] | | | | + + + + + -+ | MPV | 8.1Comment: Testing | fl | EXTERNAL | | | | performed at [facility];[address] | | LAB | | | | [address];[place] | | | | | | [address] | | | | + + + + + -+ | Differentia | AUTOMATEDComment: | | EXTERNAL | | | l Type | Testing performed at | | LAB | | | | [facility];[address];[place] [address] | | | | + + + + + -+ | % Segmented | 78.90Comment: Testing | % | EXTERNAL | | | | performed at [facility];[address] | | LAB | | | Neutrophils | [address];[place] | | | | | | [address] | | | | + + + + + -+ | % | 14.89Comment: Testing | % | EXTERNAL | | | Lymphocytes | performed at [facility];[address] | | LAB | | | | [address];[place] | | | | | | [address] | | | | + + + + + -+ | % Monocytes | 5.61Comment: Testing | % | EXTERNAL | | | | performed at [facility];[address] | | LAB | | | | [address];[place] | | | | | | [address] | | | | + + + + + -+ | % | 0.05Comment: Testing | % | EXTERNAL | | | Eosinophils | performed at [facility];[address] | | LAB | | | | [address];[place] | | | | | | [address] | | | | + + + + + -+ | % Basophils | 0.55Comment: Testing | % | EXTERNAL | | | | performed at [facility];[address] | | LAB | | | | [address];[place] | | | | | | [address] | | | | + + + + + -+ | Absolute | 12.53 (H)Comment: | 1.90 - 7.40 | EXTERNAL | | | Segmented | Testing performed at | K/uL | LAB | | | Neutrophils | [facility];[address];[place] [address] | | | | + + + + + -+ | Absolute | 2.37Comment: Testing | 1.00 - 3.90 | EXTERNAL | | | Lymphocytes | performed at [facility];[address] | K/uL | LAB | | | | [address];[place] | | | | | | [address] | | | | + + + + + -+ | Absolute | 0.89 (H)Comment: Testing | 0.00 - 0.80 | EXTERNAL | | | Monocytes | performed at [facility];[address] | K/uL | LAB | | | | [address];[place] | | | | | | [address] | | | | + + + + + -+ | Absolute | 0.01Comment: Testing | 0.00 - 0.50 | EXTERNAL | | | Eosinophils | performed at [facility];[address] | K/uL | LAB | | | | [address];[place] | | | | | | [address] | | | | + + + + + -+ | Absolute | 0.09Comment: Testing | 0.00 - 0.10 | EXTERNAL | | | Basophils | performed at [facility];[address] | K/uL | LAB | | | | [address];[place] | | | | | | [address] | | | | + + + + + -+ | Na | 133 (L)Comment: Testing | 135 - 145 | EXTERNAL | | | | performed at [facility];[address] | mmol/L | LAB | | | | [address];[place] | | | | | | [address] | | | | + + + + + -+ | K | 3.3 (L)Comment: Testing | 3.5 - 4.9 | EXTERNAL | | | | performed at [facility];[address] | mmol/L | LAB | | | | [address];[place] | | | | | | [address] | | | | + + + + + -+ | Cl | 100Comment: Testing | 99 - 109 mmol/L | EXTERNAL | | | | performed at [facility];[address] | | LAB | | | | [address];[place] | | | | | | [address] | | | | + + + + + -+ | CO2 | 22 (L)Comment: Testing | 23 - 32 mmol/L | EXTERNAL | | | | performed at [facility];[address] | | LAB | | | | [address];[place] | | | | | | [address] | | | | + + + + + -+ | Anion Gap | 14Comment: Testing | 5 - 20 mmol/L | EXTERNAL | | | | performed at [facility];[address] | | LAB | | | | [address];[place] | | | | | | [address] | | | | + + + + + -+ | Glucose, | 298 (H)Comment: Testing | 65 - 99 mg/dL | EXTERNAL | | | Fasting | performed at [facility];[address] | | LAB | | | | [address];[place] | | | | | | [address] | | | | + + + + + -+ | BUN | 13Comment: Testing | 8 - 25 mg/dL | EXTERNAL | | | | performed at [facility];[address] | | LAB | | | | [address];[place] | | | | | | [address] | | | | + + + + + -+ | Creatinine | 0.84Comment: Testing | 0.50 - 1.00 | EXTERNAL | | | | performed at [facility];[address] | mg/dL | LAB | | | | [address];[place] | | | | | | [address] | | | | + + + + + -+ | BUN/Creatin | 15Comment: Testing | | EXTERNAL | | | ine Ratio | performed at [facility];[address] | | LAB | | | | [address];[place] | | | | | | [address] | | | | + + + + + -+ | Calcium | 9.1Comment: Testing | 8.5 - 10.5 | EXTERNAL | | | | performed at [facility];[address] | mg/dL | LAB | | | | [address];[place] | | | | | | [address] | | | | + + + + + -+ | Protein, | 7.3Comment: Testing | 6.3 - 8.2 g/dL | EXTERNAL | | | Total | performed at [facility];[address] | | LAB | | | | [address];[place] | | | | | | [address] | | | | + + + + + -+ | Albumin | 3.6Comment: Testing | 3.3 - 4.8 g/dL | EXTERNAL | | | | performed at [facility];[address] | | LAB | | | | [address];[place] | | | | | | [address] | | | | + + + + + -+ | Globulin | 3.6Comment: Testing | 1.3 - 4.9 g/dL | EXTERNAL | | | | performed at [facility];[address] | | LAB | | | | [address];[place] | | | | | | [address] | | | | + + + + + -+ | A/G Ratio | 1.0Comment: Testing | 1.0 - 2.4 | EXTERNAL | | | | performed at [facility];[address] | | LAB | | | | [address];[place] | | | | | | [address] | | | | + + + + + -+ | Bilirubin | 0.4Comment: Testing | 0.1 - 1.5 mg/dL | EXTERNAL | | | Total | performed at [facility];[address] | | LAB | | | | [address];[place] | | | | | | [address] | | | | + + + + + -+ | ALP, | 105Comment: Testing | 35 - 115 U/L | EXTERNAL | | | External | performed at [facility];[address] | | LAB | | | | [address];[place] | | | | | | [address] | | | | + + + + + -+ | AST | 23Comment: Testing | 10 - 45 U/L | EXTERNAL | | | | performed at [facility];[address] | | LAB | | | | [address];[place] | | | | | | [address] | | | | + + + + + -+ | ALT | 35Comment: Testing | 10 - 65 U/L | EXTERNAL | | | | performed at [facility];[address] | | LAB | | | | [address];[place] | | | | | | [address] | | | | + + + + + -+ | Estimated | >60Comment: GFR <60: | [...] | | | | | | at [facility];[address] | | | | [address];[place] [address] | | | | + + + + + -+ | CK, Total | 52Comment: Testing | 30 - 240 U/L | EXTERNAL | | | | performed at [facility];[address] | | LAB | | | | [address];[place] | | | | | | [address] | | | | + + + + + -+ | INR | 1.0Comment: REFERENCE | | [...] | | | | | performed at [facility];[address] | | | | | | [address];[place] | | | | | | [address] | | | | + + + + + -+ | aPTT, | 26Comment: Testing | 23 - 32 seconds | EXTERNAL | | | Patient | performed at [facility];[address] | | LAB | | | | [address];[place] | | | | | | [address] | | | | + + + + + -+ | CK-MB | 1.1Comment: Testing | 0.5 - 3.6 ng/mL | EXTERNAL | | | | performed at [facility];[address] | | LAB | | | | [address];[place] | | | | | | [address] | | | | + + + + + -+ | CK-MB Index | 2.1Comment: CK INDEX | | EXTERNAL | | [...] | | | + +---------+ + + Sedimentation rate, automated (11/20/2015 7:21 AM PDT) + + + + + + | Component | Value | Ref Range | Performed | Pathologist | | | | | At | Signature | + + + + + + | Sed Rate | 18Comment: Testing | 0 - 30 mm/Hr | EXTERNAL | | | | performed at [facility] | | LAB | | | | [facility], [place] | | | | | | [address] | | | | + + + + + + + + | Specimen | + + | Blood specimen | | (specimen) | + + + +---------+ + + | Performing | Address | City/State/Zipcode | Phone Number | | Organization | | | | + +---------+ + + | EXTERNAL LAB | | | | + +---------+ + + C-Reactive Protein (11/20/2015 7:21 AM PDT) + + + + + + | Component | Value | Ref Range | Performed | Pathologist | | | | | At | Signature | + + + + + + | CRP | <0.3Comment: Testing | mg/dL | EXTERNAL | | | | performed at [facility] | | LAB | | | | [address] [facility];[place] | | | | | | [address] | | | | + + + [...] + +---------+ + + ECG 12 lead (11/20/2015 7:15 AM PDT) + + + + + [...] | | | | | ECG of 16-NOV-2015 | | | | | | 01:05,No significant | | | | | | change was foundThis ECG | | | | | | [...] (500), | | | | | | order editor MADISON THRASHER (2) | | | | | | on 11/20/2015 3:42:06 PM | | | | | | | | | | + + + + + + + + | Specimen | + + | | + + + + + | Narrative | Performed At | + + + | Historically converted procedure from [facility] environment | EXTERNAL LAB | + + + + +---------+ + + | Performing | Address | City/State/Zipcode | Phone Number | | Organization | | | | + +---------+ + + | EXTERNAL LAB | | | | + +---------+ + + documented in this encounter Visit Diagnoses + + | Diagnosis | + + | Chest pain in adult | + + | Hyponatremia Hyposmolality and/or hyponatremia | + + | Hypokalemia Hypopotassemia | + + | Gastritis and duodenitis Unspecified gastritis and gastroduodenitis without mention | | of hemorrhage | + + | Type 2 diabetes mellitus without complication (HCC) | + + documented in this encounter
--- OUTSIDE RECORDS SUMMARY | ~2019-04-09 | XMS | Encounter Summary ---
Demographics + + + | Address | [address] | | | [place] [address] | + + + | Home Phone | | + + + | Preferred Language | Unknown | + + + | Marital Status | | + + + | Sabianist Affiliation | Unknown | + + + | Race | Unknown | + + + | Ethnic Group | Unknown | + + + Author + + + | Author | [facility] | | | and [place] | + + + | Organization | [facility] | | | and [...] Team Providers + +------+ + | Care Process Development Chemist Name | Role | Phone | + +------+ + PCP | Unavailable | + +------+ + Encounter Details +--------+ + + + + | Date | Type | Department | Care Team | Description | +--------+ + + + + | 09/03/ | Hospital | [facility] | Conversion | Preop examination; | | 2015 | Encounter | [facility] | Transaction, | Chronic ischemic | | | | NUCLE[facility]ICINE | Provider Unknown | heart disease; | | | | [address] | | Personal history of | | | | [facility], [place] | (Fax) | tobacco use | | | | [address] | | | | | | [phone] | | | +--------+ + + + [...]
--- OUTSIDE RECORDS SUMMARY | ~2019-04-09 | XMS | Clinical Summary ---
Demographics + + + | Address | [address] | | | [address] | | | [place] [address] | + + + | Home Phone | | + + + | Preferred Language | Unknown | + + + | Marital Status | | + + + | Anabaptist Affiliation | Unknown | + + + | Race | Unknown | + + + | Ethnic Group | Unknown | + + + Author + + + | Author | [facility] [employer] (Historical as of | | | 11-25-18) | + + + | Organization | [facility] [employer] (Historical as of | | | 11-25-18) [...] [place] | | | | | [address] | | + + + + + Care Team Providers + +------+ + | Care Coat Repair Inspector Name | Role | Phone | [...] | 20 | | e | | [phone] UNITS capsule | | | | 16 [...] +------+-------+ + | PREMERA | PREMER | [id number] | | | [address] [address] | | | A BLUE | | | | [place], [place] | | | CROSS | | | | [address] | | | FED | | | [...] 1956 | [phone] | # [phone] [place] | | | sammi | | | [phone] | [phone] | + +--------+ +--------+ + +
--- OUTSIDE RECORDS SUMMARY | ~2019-04-09 | XMS | Encounter Summary ---
Demographics + + + | Address | [address] | | | [place] [address] | + + + | Home Phone | | + + + | Preferred Language | Unknown | + + + | Marital Status | | + + + | Druze Affiliation | Unknown | + + + | Race | Unknown | + + + | Ethnic Group | Unknown | + + + Author + + + | Author | [facility] | | | and [place] | + + + | Organization | [facility] | | | and [...] Team Providers + +------+ + | Care Water Commissioner Name | Role | Phone | + +------+ + PCP | Unavailable | + +------+ + Encounter Details +--------+ + + + + | Date | Type | Department | Care Team | Description | +--------+ + + + + | 05/26/ | Emergency | [facility] | Vinh Baker, | Acute abdominal | | 2013 - | | MEDICAL CENTER | MD Amaris THOMSON | pain; Acute | | | | EMERGENCY CENTER | [place] [address] | gastroenteritis | | 05/27/ | | [address] | [phone] | | | 2013 | | [place], [place] | | | | | | [address] | | | | | | [phone] | | | +--------+ + + + [...] | | | | performed at [facility];[address] | | LAB | | | | [address];[place] | | | | | | [address] | | | | + + + + + + | RED CELL | 5.11 (H)Comment: Testing | 3.70 - 5.10 | EXTERNAL | | | COUNT | performed at [facility];888 | M/uL | LAB | | | | [address];[place] | | | | | | [address] | | | | + + + + + + | Hgb | 15.9 (H)Comment: Testing | 11.3 - 15.5 | EXTERNAL | | | | performed at [facility];888 | g/dL | LAB | | | | [address];[place] | | | | | | [address] | | | | + + + + + + | Hematocrit, | 47.4 (H)Comment: Testing | 34.0 - 46.0 % | EXTERNAL | | | POC | performed at [facility];[address] | | LAB | | | | [address];[place] | | | | | | [address] | | | | + + + + + + | MCV | 92.7Comment: Testing | 80.0 - 100.0 fl | EXTERNAL | | | | performed at [facility];[address] | | LAB | | | | [address];[place] | | | | | | [address] | | | | + + + + + + | MCH | 31.1Comment: Testing | 27.0 - 34.0 pg | EXTERNAL | | | | performed at [facility];[address] | | LAB | | | | [address];[place] | | | | | | [address] | | | | + + + + + + | MCHC | 33.6Comment: Testing | 32.0 - 35.5 | EXTERNAL | | | | performed at [facility];888 | g/dL | LAB | | | | [address];[place] | | | | | | [address] | | | | + + + + + + | RDW-CV | 43.3Comment: Testing | 37 - 53 fl | EXTERNAL | | | | performed at [facility];[address] | | LAB | | | | [address];[place] | | | | | | [address] | | | | + + + + + + | Platelet | 354Comment: Testing | 150 - 400 K/uL | EXTERNAL | | | Count | performed at [facility];[address] | | LAB | | | Plasma | [address];[place] | | | | | | [address] | | | | + + + + + + | MPV | 8.5Comment: Testing | fl | EXTERNAL | | | | performed at [facility];[address] | | LAB | | | | [address];[place] | | | | | | [address] | | | | + + + + + + | Differentia | AUTOMATEDComment: | | EXTERNAL | | | l Type | Testing performed at | | LAB | | | | [facility];[address];[place] [address] | | | | + + + + + + | % Segmented | 79.0Comment: Testing | % | EXTERNAL | | | | performed at [facility];[address] | | LAB | | | Neutrophils | [address];[place] | | | | | | [address] | | | | + + + + + + | % | 15.5Comment: Testing | % | EXTERNAL | | | Lymphocytes | performed at [facility];[address] | | LAB | | | | [address];[place] | | | | | | [address] | | | | + + + + + + | % Monocytes | 4.9Comment: Testing | % | EXTERNAL | | | | performed at [facility];[address] | | LAB | | | | [address];[place] | | | | | | [address] | | | | + + + + + + | % | 0.4Comment: Testing | % | EXTERNAL | | | Eosinophils | performed at [facility];[address] | | LAB | | | | [address];[place] | | | | | | [address] | | | | + + + + + + | % Basophils | 0.2Comment: Testing | % | EXTERNAL | | | | performed at [facility];[address] | | LAB | | | | [address];[place] | | | | | | [address] | | | | + + + + + + | Absolute | 11.1 (H)Comment: Testing | 1.9 - 7.4 K/uL | EXTERNAL | | | Segmented | performed at [facility];[address] | | LAB | | | Neutrophils | [address];[place] | | | | | | [address] | | | | + + + + + + | Absolute | 2.2Comment: Testing | 1.0 - 3.9 K/uL | EXTERNAL | | | Lymphocytes | performed at [facility];[address] | | LAB | | | | [address];[place] | | | | | | [address] | | | | + + + + + + | Absolute | 0.7Comment: Testing | 0 - 0.8 K/uL | EXTERNAL | | | Monocytes | performed at [facility];[address] | | LAB | | | | [address];[place] | | | | | | [address] | | | | + + + + + + | Absolute | 0.1Comment: Testing | 0 - 0.5 K/uL | EXTERNAL | | | Eosinophils | performed at [facility];[address] | | LAB | | | | [address];[place] | | | | | | [address] | | | | + + + + + + | Absolute | 0.0Comment: Testing | 0 - 0.1 K/uL | EXTERNAL | | | Basophils | performed at [facility];[address] | | LAB | | | | [address];[place] | | | | | | [address] | | | | + + + [...] | | | | performed at [facility];[address] | | LAB | | | | [address];[place], [place] | | | | | | [address] | | | | + + + [...] | | | | performed at [facility];888 | mmol/L | LAB | | | | [address];[place] | | | | | | [address] | | | | + + + + + + | K | 3.8Comment: Testing | 3.5 - 4.9 | EXTERNAL | | | | performed at [facility];888 | mmol/L | LAB | | | | [address];[place] | | | | | | [address] | | | | + + + + + + | Cl | 104Comment: Testing | 99 - 109 mmol/L | EXTERNAL | | | | performed at [facility];[address] | | LAB | | | | [address];[place] | | | | | | [address] | | | | + + + + + + | CO2 | 26Comment: Testing | 23 - 32 mmol/L | EXTERNAL | | | | performed at [facility];[address] | | LAB | | | | [address];[place] | | | | | | [address] | | | | + + + + + + | Anion Gap | 11Comment: Testing | 5 - 20 mmol/L | EXTERNAL | | | | performed at [facility];[address] | | LAB | | | | [address];[place] | | | | | | [address] | | | | + + + + + + | Glucose, | 329 (H)Comment: Testing | 65 - 99 mg/dL | EXTERNAL | | | Fasting | performed at [facility];[address] | | LAB | | | | [address];[place] | | | | | | [address] | | | | + + + + + + | BUN | 11Comment: Testing | 8 - 25 mg/dL | EXTERNAL | | | | performed at [facility];[address] | | LAB | | | | [address];[place] | | | | | | [address] | | | | + + + + + + | Creatinine | 1.03 (H)Comment: Testing | 0.50 - 1.00 | EXTERNAL | | | | performed at [facility];888 | mg/dL | LAB | | | | [address];[place] | | | | | | [address] | | | | + + + + + + | BUN/Creatin | 11Comment: Testing | | EXTERNAL | | | ine Ratio | performed at [facility];[address] | | LAB | | | | [address];[place] | | | | | | [address] | | | | + + + + + + | Calcium | 9.7Comment: Testing | 8.5 - 10.2 | EXTERNAL | | | | performed at [facility];888 | mg/dL | LAB | | | | [address];[place] | | | | | | [address] | | | | + + + + + + | Protein, | 8.7 (H)Comment: Testing | 6.3 - 8.2 g/dL | EXTERNAL | | | Total | performed at [facility];[address] | | LAB | | | | [address];[place] | | | | | | [address] | | | | + + + + + + | Albumin | 4.5Comment: Testing | 3.6 - 5.0 g/dL | EXTERNAL | | | | performed at [facility];[address] | | LAB | | | | [address];[place] | | | | | | [address] | | | | + + + + + + | Globulin | 4.2Comment: Testing | 1.3 - 4.9 g/dL | EXTERNAL | | | | performed at [facility];[address] | | LAB | | | | [address];[place] | | | | | | [address] | | | | + + + + + + | A/G Ratio | 1.1Comment: Testing | 1.0 - 2.4 | EXTERNAL | | | | performed at [facility];[address] | | LAB | | | | [address];[place] | | | | | | [address] | | | | + + + + + + | Bilirubin | 0.2Comment: Testing | 0.1 - 1.5 mg/dL | EXTERNAL | | | Total | performed at [facility];[address] | | LAB | | | | [address];[place] | | | | | | [address] | | | | + + + + + + | ALP, | 144 (H)Comment: Testing | 35 - 115 U/L | EXTERNAL | | | External | performed at [facility];[address] | | LAB | | | | [address];[place] | | | | | | [address] | | | | + + + + + + | AST | 19Comment: Testing | 10 - 45 U/L | EXTERNAL | | | | performed at [facility];[address] | | LAB | | | | [address];[place] | | | | | | [address] | | | | + + + + + + | ALT | 28Comment: Testing | 10 - 65 U/L | EXTERNAL | | | | performed at [facility];[address] | | LAB | | | | [address];[place] | | | | | | [address] | | | | + + + [...] | | | | | at [facility];[address];[place] [address] | | | | + + + [...]
--- OUTSIDE RECORDS SUMMARY | ~2019-04-09 | XMS | Encounter Summary ---
Demographics + + + | Address | [address] | | | [place] [address] | + + + | Home Phone | | + + + | Preferred Language | Unknown | + + + | Marital Status | | + + + | Orthodoxy Affiliation | Unknown | + + + | Race | Unknown | + + + | Ethnic Group | Unknown | + + + Author + + + | Author | [facility] | | | and [place] | + + + | Organization | [facility] | | | and [place] [...] Team Providers + +------+ + | Care Welfare Aide Name | Role | Phone | + [...] Encounter | [address] | [place] [address] [place] | Pelvic Region and | | | | [address] | [address] | Thigh | | | | [place], [place] | [place] [address] | | | | | [address] | [phone] | | | | | [phone] | | | +--------+ + + + [...] Performed At | + + + | [id number] | | | Page 1 RADIOLOGY | | | / | | | O/P [facility] | | | NAME: [place] [address] | | | | | | | | | DATE OF : 1955 ORDER NUMBER: [id number] EXAM | | | DATE/TIME: 06/04/2008 09:22 A ORDERING PHYSICIAN: BRAYDNO PENA | | | ORDER DETAIL: [id number] [...] 03:51 P | | | A P JOEL/[id number]/ | | | cc: MD BRAYDON DIMAS DO | | + + + + + | Procedure Note | + + | Niraj Lepe Conversion - 12/04/2018 12:40 AM PDT | | [id number] Page 1 | | RADIOLOGY / | | O/P | | [facility] NAME: CAPRICE AMADOR | | [place] [address] | | | | DATE OF : 1955 | | | | ORDER NUMBER: [id number] | | EXAM DATE/TIME: 06/04/2008 09:22 A [...] | A | | P | | [facility]/[id number]/ | | cc: KURT GARZA MD | | BRAYDON PENA DO | + + documented in this encounter Visit Diagnoses + + | Diagnosis | + + | Pain in joint, pelvic region and thigh | + + documented in this encounter"
--- OUTSIDE RECORDS SUMMARY | ~2019-04-09 | XMS | Encounter Summary ---
Demographics + + + | Address | [address] | | | [place] [address] | + + + | Home Phone | | + + + | Preferred Language | Unknown | + + + | Marital Status | | + + + | Protestant Affiliation | Unknown | + + + | Race | Unknown | + + + | Ethnic Group | Unknown | + + + Author + + + | Author | [facility] [place] | | | and [place] | + + + | Organization | [facility] [place] | | | and [place] [...] Team Providers + +------+ + | Care Joint Sealer Name | Role | Phone | + +------+ + PCP | Unavailable | + +------+ + Encounter Details +--------+ + + + + | Date | Type | Department | Care Team | Description | +--------+ + + + + | 11/19/ | Hospital | [facility] | RiazAlmash | Chest pain in adult; | | 2016 - | Encounter | [facility] | MD [address] | Hyponatremia; | | | | CARE FLOOR [address] | [facility] | Hypokalemia; | | 11/23/ | | [address] | [place] [address] | Gastritis and | | 2016 | | [place] | [phone] | duodenitis; Type 2 | | | | [address] | | diabetes mellitus | | | | [phone] | | without complication | | | [...] 1024 Date of Service: 11/24/15821 Status: Signed Laborer Hoisting: Demetria Mixon MD (Physician) [facility] Service: Hospitalist Discharge Summary Date of Admission: [...] medications. Past Medical History Diagnosis Date Hypertension [place] (myocardial infarction) (HCC) Hyperlipidemia Diabetes mellitus, type 2 (HCC) CAD (coronary artery disease) 11/18/2015 Past Surgical History Procedure Laterality Date Hysterectomy Oophorectomy Coronary stent placement Cardiac catheterization Neck surgery Esophagogastroduodenoscopy N/A 11/18/2015 Procedure: ESOPHAGOGASTRODUODENOSCOPY; Surgeon: Jasson Stauffer IV, MD; Location: [facility]; Service: Gastroenterology; Laterality: N/A; Allergies Allergen Reactions [...] 11/19/2015 at Unknown time vitamin D2, ergocalciferol, 63164 UNITS capsule once a week. Pt takes [...] Braydon Lowry, [address] [place] [address] Schedule an appointment as soon as possible for a visit in 1 week Jasson Stauffer IV, MD [address] [place] [id number] Schedule an appointment as soon as possible [...] Commonly known as: ULTRAM vitamin D2 (ergocalciferol) 44512 UNITS capsule Refills: 0 Where to Get Your Medications These are the prescriptions that you need to cloth picker. You may get the following medications from [...] Notes by Demetria Mixon MD at 11/23/15 0483 Author: Demetria Mixon MD Service: Hospitalist Author Type: Physician Filed: 11/23/15 1844 Date of Service: 11/23/151133 Status: Signed Laborer Hoisting: Demetria Mixon MD (Physician) [facility] Service: Hospitalist Progress Note Hospital Day: LOS: [...] Notes by Demetria Mixon MD at 11/22/15 7504 Author: Demetria Mixon MD Service: Hospitalist Author Type: Physician Filed: 11/22/152007 Date of Service: 11/22/151104 Status: Signed Laborer Hoisting: Demetria Mixon MD (Physician) [facility] Service: Hospitalist Progress Note Hospital Day: LOS: [...] Author: RONI Prince Service: (none) Author Type: Development Eng Filed: 11/21/15 175 Date of Service: 11/21/15 1800 Status: Signed Laborer Hoisting: RONI Prince (Development Eng) 11/21/15 1700 Discharge Planning Evaluation Admitting Diagnosis [...] No Living Arrangements Spouse/significant other (Kiana Hurt [phone]) Type of Residence Private residence House type Mobile home Steps to enter 2 Independent with ADL's Yes Independent with Mobility Yes Home Care Services No Mental Status Oriented Prior functional status 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 She is takin g Plavix as a blood thinner and her insurance covers the entire cost. She has no caregivers or Home O2. 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 Tolerating clear liquid diet. Complains of abdominal pain at 7/10. States she is able to tolerate this. Independent in room. No changes since earlier as sessment. BIN MENDOZA [employer] Transaction, Provider Unknown - 11/21/2015 3:16 PM PDT Progress Notes by Zohra Martinez RD at 11/21/15 6274 Author: Zohra Martinez RD Service: (none) Author Type: Registered Dietitian Filed: 11/21/15 1516 Date of Service: 11/21/151515 Status: Signed Laborer Hoisting: Zohra Martinez RD (Registered Dietitian) 11/21/15 5049 Subjective Timepoint Admit (Consult - low intake) [...] Estimated Energy Needs Total Energy Estimated Needs 6760-4602 kcals Method for Estimating Needs 25-30 kcal/kg [...] Service: Hospitalist Author Type: Physician Filed: 11/21/15 3839 Date of Service: 11/21/151322 Status: Addendum Laborer Hoisting: Demetria Mixon MD (Physician) Related Notes: Original Note by Demetria Mixon MD (Physician) filed at 11/21/15 8584 [facility] Service: Hospitalist Progress Note Hospital Day: LOS: [...] Date of Service: 11/20/15 1257 Status: Signed Laborer Hoisting: Shahzad Montoya RPH (Pharmacist) Clinical Pharmacy Note: Renal Monitoring Whit Hurt 60 y.o. female Ht Readings from Last 1 Encounters: 11/16/15 1.651 m (5' 5") Wt Readings from Last 1 Encounters: 11/20/15 79.8 kg (175 lb 14.8 oz) CREATININE Date Value Ref Range Status 11/20/2015 0.84 0.50 - 1.00 mg/dL Final Comment: Testing performed at [facility];[address] [place] [address];[place] [address] CREATININE: 0.84 (11/20/15 0721) Estimated creatinine clearance [...] | | Fingerstick | performed at [facility];[address] | | LAB | | | | [address];[place] | | | | | | [address] | | | | + + + [...] EXTERNAL | | | | performed at [facility], [address] | mmol/L | LAB | | | | [address], | | | | | | [place] [address] | | | | + + + + + + | K | 3.3 (L)Comment: Testing | 3.5 - 4.9 | EXTERNAL | | | | performed at [facility], [address] | mmol/L | LAB | | | | [address], | | | | | | [place] [address] | | | | + + + + + + | Cl | 104Comment: Testing | 99 - 109 mmol/L | EXTERNAL | | | | performed at [facility], [address] | | LAB | | | | [address], | | | | | | [place] [address] | | | | + + + + + + | CO2 | 30Comment: Testing | 23 - 32 mmol/L | EXTERNAL | | | | performed at [facility], [address] | | LAB | | | | [address], | | | | | | [place] [address] | | | | + + + + + + | Anion Gap | 11Comment: Testing | 5 - 20 mmol/L | EXTERNAL | | | | performed at [facility], [address] | | LAB | | | | [address], | | | | | | [place] [address] | | | | + + + + + + | Glucose, | 121 (H)Comment: Testing | 65 - 99 mg/dL | EXTERNAL | | | Fasting | performed at [facility], [address] | | LAB | | | | [address], | | | | | | [place] [address] | | | | + + + + + + | BUN | 8Comment: Testing | 8 - 25 mg/dL | EXTERNAL | | | | performed at [facility], [address] | | LAB | | | | [address], | | | | | | [place] [address] | | | | + + + + + + | Creatinine | 0.7Comment: Testing | 0.50 - 1.00 | EXTERNAL | | | | performed at [facility], [address] | mg/dL | LAB | | | | [address], | | | | | | [place] [address] | | | | + + + + + + | Calcium | 9.5Comment: Testing | 8.5 - 10.5 | EXTERNAL | | | | performed at [facility], [address] | mg/dL | LAB | | | | [address], | | | | | | [place] [address] | | | | + + + + + + | Albumin | 3.1 (L)Comment: Testing | 3.3 - 4.8 g/dL | EXTERNAL | | | | performed at [facility], [address] | | LAB | | | | [address], | | | | | | [place] [address] | | | | + + + + + + | PHOSPHORUS | 3.1Comment: Testing | 2.3 - 4.8 mg/dL | EXTERNAL | | | | performed at [facility], [address] | | LAB | | | | [address], | | | | | | [place] [address] | | | | + + + [...] | | | | | | at [facility], [address] | | | | | | [address], | | | | | | [place] [address] | | | | + + + [...] | | Fingerstick | performed at [facility];[address] | | LAB | | | | [address];[place], [place] | | | | | | [address] | | | | + + + [...] | | Fingerstick | performed at [facility];[address] | | LAB | | | | [address];[place] | | | | | | [address] | | | | + + + [...] | | Fingerstick | performed at [facility];[address] | | LAB | | | | [address];[place] | | | | | | [address] | | | | + + + [...] | | Fingerstick | performed at [facility];[address] | | LAB | | | | [address];[place], [place] | | | | | | [address] | | | | + + + [...] | | | | [facility], [address] [facility] [place] | | | | | | [place] | | | | | | [address] | | | | + + + + + + | RED CELL | 4.38Comment: Testing | 3.70 - 5.10 | EXTERNAL | | | COUNT | performed at [facility], [address] | M/uL | LAB | | | | [address], | | | | | | [place] [address] | | | | + + + + + + | Hgb | 13.8Comment: Testing | 11.3 - 15.5 | EXTERNAL | | | | performed at [facility], [address] | g/dL | LAB | | | | [address], | | | | | | [place] [address] | | | | + + + + + + | Hematocrit, | 40.4Comment: Testing | 34.0 - 46.0 % | EXTERNAL | | | POC | performed at [facility], [address] | | LAB | | | | [address], | | | | | | [place] [address] | | | | + + + + + + | MCV | 92.3Comment: Testing | 80.0 - 100.0 fl | EXTERNAL | | | | performed at [facility], [address] | | LAB | | | | [address], | | | | | | [place] [address] | | | | + + + + + + | MCH | 31.5Comment: Testing | 27.0 - 34.0 pg | EXTERNAL | | | | performed at [facility], [address] | | LAB | | | | [address], | | | | | | [place] [address] | | | | + + + + + + | MCHC | 34.1Comment: Testing | 32.0 - 35.5 | EXTERNAL | | | | performed at [facility], [address] | g/dL | LAB | | | | [address], | | | | | | [place] [address] | | | | + + + + + + | RDW-CV | 42.9Comment: Testing | 37 - 53 fl | EXTERNAL | | | | performed at [facility], [address] | | LAB | | | | [address], | | | | | | [place] [address] | | | | + + + + + + | Platelet | 294Comment: Testing | 150 - 400 K/uL | EXTERNAL | | | Count | performed at [facility], [address] | | LAB | | | Plasma | [address], | | | | | | [place] [address] | | | | + + + + + + | MPV | 8.9Comment: Testing | fl | EXTERNAL | | | | performed at [facility], [address] | | LAB | | | | [address], | | | | | | [place] [address] | | | | + + + + + + | Differentia | AUTOMATEDComment: | | EXTERNAL | | | l Type | Testing performed at | | LAB | | | | [facility], [address] | | | | | | [place] | | | | | | [address] | | | | + + + + + + | % Segmented | 60.23Comment: Testing | % | EXTERNAL | | | | performed at [facility], [address] | | LAB | | | Neutrophils | [address], | | | | | | [place] [address] | | | | + + + + + + | % | 28.36Comment: Testing | % | EXTERNAL | | | Lymphocytes | performed at [facility], [address] | | LAB | | | | [address], | | | | | | [place] [address] | | | | + + + + + + | % Monocytes | 9.19Comment: Testing | % | EXTERNAL | | | | performed at [facility], [address] | | LAB | | | | [address], | | | | | | [place] [address] | | | | + + + + + + | % | 1.49Comment: Testing | % | EXTERNAL | | | Eosinophils | performed at [facility], [address] | | LAB | | | | [address], | | | | | | [place] [address] | | | | + + + + + + | % Basophils | 0.73Comment: Testing | % | EXTERNAL | | | | performed at [facility], [address] | | LAB | | | | [address], | | | | | | [place] [address] | | | | + + + + + + | Absolute | 6.68Comment: Testing | 1.90 - 7.40 | EXTERNAL | | | Segmented | performed at [facility], [address] | K/uL | LAB | | | Neutrophils | [address], | | | | | | [place] [address] | | | | + + + + + + | Absolute | 3.15Comment: Testing | 1.00 - 3.90 | EXTERNAL | | | Lymphocytes | performed at [facility], [address] | K/uL | LAB | | | | [address], | | | | | | [place] [address] | | | | + + + + + + | Absolute | 1.02 (H)Comment: Testing | 0.00 - 0.80 | EXTERNAL | | | Monocytes | performed at [facility], [address] | K/uL | LAB | | | | [address], | | | | | | [place] [address] | | | | + + + + + + | Absolute | 0.17Comment: Testing | 0.00 - 0.50 | EXTERNAL | | | Eosinophils | performed at [facility], [address] | K/uL | LAB | | | | [address], | | | | | | [place] [address] | | | | + + + + + + | Absolute | 0.08Comment: Testing | 0.00 - 0.10 | EXTERNAL | | | Basophils | performed at [facility], [address] | K/uL | LAB | | | | [address], | | | | | | [place] [address] | | | | + + + [...] | | | | | [place] [address] | | | | + + + [...] | | | | | [place] [address] | | | | + + + + + + | K | 3.3 (L)Comment: SPECIMEN | 3.5 - 4.9 | EXTERNAL | | | | SLIGHTLY | mmol/L | LAB | | | | HEMOLYZEDTesting | | | | | | performed at [facility], [address] | | | | | | [address], | | | | | | [place] [address] | | | | + + + + + + | Cl | 107Comment: Testing | 99 - 109 mmol/L | EXTERNAL | | | | performed at [facility], [address] | | LAB | | | | [address], | | | | | | [place] [address] | | | | + + + + + + | CO2 | 28Comment: Testing | 23 - 32 mmol/L | EXTERNAL | | | | performed at [facility], [address] | | LAB | | | | [address], | | | | | | [place] [address] | | | | + + + + + + | Anion Gap | 11Comment: Testing | 5 - 20 mmol/L | EXTERNAL | | | | performed at [facility], [address] | | LAB | | | | [address], | | | | | | [place] [address] | | | | + + + [...] | | | | | [place] [address] | | | | + + + + + + | BUN | 5 (L)Comment: Testing | 8 - 25 mg/dL | EXTERNAL | | | | performed at [facility], [address] | | LAB | | | | [address], | | | | | | [place] [address] | | | | + + + + + + | Creatinine | 0.6Comment: SPECIMEN | 0.50 - 1.00 | EXTERNAL | | | | SLIGHTLY | mg/dL | LAB | | | | HEMOLYZEDTesting | | | | | | performed at [facility], [address] | | | | | | [address], | | | | | | [place] [address] | | | | + + + + + + | Calcium | 9.0Comment: Testing | 8.5 - 10.5 | EXTERNAL | | | | performed at [facility], [address] | mg/dL | LAB | | | | [address], | | | | | | [place] [address] | | | | + + + + + + | Albumin | 3.0 (L)Comment: Testing | 3.3 - 4.8 g/dL | EXTERNAL | | | | performed at [facility], [address] | | LAB | | | | [address], | | | | | | [place] [address] | | | | + + + + + + | PHOSPHORUS | 2.8Comment: SPECIMEN | 2.3 - 4.8 mg/dL | EXTERNAL | | | | SLIGHTLY | | LAB | | | | HEMOLYZEDTesting | | | | | | performed at [facility], [address] | | | | | | [address], | | | | | | [place] [address] | | | | + + + [...] | | | | | [place] [address] | | | | + + + [...] | | Fingerstick | performed at [facility];[address] | | LAB | | | | [address];[place], [place] | | | | | | [address] | | | | + + + [...] | | Fingerstick | performed at [facility] | | LAB | | | | [address];[place] | | | | | | [address] | | | | + + + [...] | | Fingerstick | performed at [facility];[address] | | LAB | | | | [address];[place], [place] | | | | | | [address] | | | | + + + [...] | | Fingerstick | performed at [facility];[address] | | LAB | | | | [address];[place] | | | | | | [address] | | | | + + + [...] | | | | [facility], [address] [facility] [place] | | | | | | [place] | | | | | | [address] | | | | + + + + + + | RED CELL | 4.52Comment: Testing | 3.70 - 5.10 | EXTERNAL | | | COUNT | performed at [facility], [address] | M/uL | LAB | | | | [address], | | | | | | [place] [address] | | | | + + + + + + | Hgb | 14.2Comment: Testing | 11.3 - 15.5 | EXTERNAL | | | | performed at [facility], [address] | g/dL | LAB | | | | [address], | | | | | | [place] [address] | | | | + + + + + + | Hematocrit, | 41.8Comment: Testing | 34.0 - 46.0 % | EXTERNAL | | | POC | performed at [facility], [address] | | LAB | | | | [address], | | | | | | [place] [address] | | | | + + + + + + | MCV | 92.5Comment: Testing | 80.0 - 100.0 fl | EXTERNAL | | | | performed at [facility], [address] | | LAB | | | | [address], | | | | | | [place] [address] | | | | + + + + + + | MCH | 31.3Comment: Testing | 27.0 - 34.0 pg | EXTERNAL | | | | performed at [facility], [address] | | LAB | | | | [address], | | | | | | [place] [address] | | | | + + + + + + | MCHC | 33.9Comment: Testing | 32.0 - 35.5 | EXTERNAL | | | | performed at [facility], [address] | g/dL | LAB | | | | [address], | | | | | | [place] [address] | | | | + + + + + + | RDW-CV | 42.9Comment: Testing | 37 - 53 fl | EXTERNAL | | | | performed at [facility], [address] | | LAB | | | | [address], | | | | | | [place] [address] | | | | + + + + + + | Platelet | 298Comment: Testing | 150 - 400 K/uL | EXTERNAL | | | Count | performed at [facility], [address] | | LAB | | | Plasma | [address], | | | | | | [place] [address] | | | | + + + + + + | MPV | 8.8Comment: Testing | fl | EXTERNAL | | | | performed at [facility], [address] | | LAB | | | | [address], | | | | | | [place] [address] | | | | + + + + + + | Differentia | AUTOMATEDComment: | | EXTERNAL | | | l Type | Testing performed at | | LAB | | | | [facility], [address] | | | | | | [place] | | | | | | [address] | | | | + + + + + + | % Segmented | 67.53Comment: Testing | % | EXTERNAL | | | | performed at [facility], [address] | | LAB | | | Neutrophils | [address], | | | | | | [place] [address] | | | | + + + + + + | % | 22.66Comment: Testing | % | EXTERNAL | | | Lymphocytes | performed at [facility], [address] | | LAB | | | | [address], | | | | | | [place] [address] | | | | + + + + + + | % Monocytes | 9.12Comment: Testing | % | EXTERNAL | | | | performed at [facility], [address] | | LAB | | | [address], | | | | | | [place] [address] | | | | + + + + + + | % | 0.43Comment: Testing | % | EXTERNAL | | | Eosinophils | performed at [facility], [address] | | LAB | | | | [address], | | | | | | [place] [address] | | | | + + + + + + | % Basophils | 0.26Comment: Testing | % | EXTERNAL | | | | performed at [facility], [address] | | LAB | | | | [address], | | | | | | [place] [address] | | | | + + + + + + | Absolute | 7.56 (H)Comment: Testing | 1.90 - 7.40 | EXTERNAL | | | Segmented | performed at [facility], [address] | K/uL | LAB | | | Neutrophils | [address], | | | | | | [place] [address] | | | | + + + + + + | Absolute | 2.54Comment: Testing | 1.00 - 3.90 | EXTERNAL | | | Lymphocytes | performed at [facility], [address] | K/uL | LAB | | | | [address], | | | | | | [place] [address] | | | | + + + + + + | Absolute | 1.02 (H)Comment: Testing | 0.00 - 0.80 | EXTERNAL | | | Monocytes | performed at [facility], [address] | [address] | LAB | | | | [address], | | | | | | [place] [address] | | | | + + + + + + | Absolute | 0.05Comment: Testing | 0.00 - 0.50 | EXTERNAL | | | Eosinophils | performed at [facility], [address] | K/uL | LAB | | | | [address], | | | | | | [place] [address] | | | | + + + + + + | Absolute | 0.03Comment: Testing | 0.00 - 0.10 | EXTERNAL | | | Basophils | performed at [facility], [address] | K/uL | LAB | | | | [address], | | | | | | [place] [address] | | | | + + + [...] | | | | | [place] [address] | | | | + + + + + + | K | 3.5Comment: SPECIMEN | 3.5 - 4.9 | EXTERNAL | | | | SLIGHTLY | mmol/L | LAB | | | | HEMOLYZEDTesting | | | | | | performed at [facility], [address] | | | | | | [address], | | | | | | [place] [address] | | | | + + + + + + | Cl | 110 (H)Comment: Testing | 99 - 109 mmol/L | EXTERNAL | | | | performed at [facility], [address] | | LAB | | | | [address], | | | | | | [place] [address] | | | | + + + + + + | CO2 | 24Comment: Testing | 23 - 32 mmol/L | EXTERNAL | | | | performed at [facility], [address] | | LAB | | | | [address], | | | | | | [place] [address] | | | | + + + + + + | Anion Gap | 13Comment: Testing | 5 - 20 mmol/L | EXTERNAL | | | | performed at [facility], [address] | | LAB | | | | [address], | | | | | | [place] [address] | | | | + + + [...] | | | | | [place] [address] | | | | + + + + + + | BUN | 8Comment: Testing | 8 - 25 mg/dL | EXTERNAL | | | | performed at [facility], [address] | | LAB | | | | [address], | | | | | | [place] [address] | | | | + + + + + + | Creatinine | 0.6Comment: SPECIMEN | 0.50 - 1.00 | EXTERNAL | | | | SLIGHTLY | mg/dL | LAB | | | | HEMOLYZEDTesting | | | | | | performed at [facility], [address] | | | | | | [address], | | | | | | [place] [address] | | | | + + + + + + | Calcium | 8.9Comment: Testing | 8.5 - 10.5 | EXTERNAL | | | | performed at [facility], [address] | mg/dL | LAB | | | | [address], | | | | | | [place] [address] | | | | + + + + + + | Albumin | 2.8 (L)Comment: Testing | 3.3 - 4.8 g/dL | EXTERNAL | | | | performed at [facility], [address] | | LAB | | | | [facility], | | | | | | [place] [address] | | | | + + + + + + | PHOSPHORUS | 2.0 (L)Comment: SPECIMEN | 2.3 - 4.8 mg/dL | EXTERNAL | | | | SLIGHTLY | | LAB | | | | HEMOLYZEDTesting | | | | | | performed at [facility], [address] | | | | | | [facility], | | | | | | [place] [address] | | | | + + + [...] | | | | | | [place] [address] | | | | + + + [...] | EXTERNAL LAB | | performed at [facility];[address] [place] [address];[place] [address] TOXIN A | | | NEGATIVE Testing performed at | | | [facility];[address] [place] [address];[place] [address] C DIFF INTERPRETATION | | | Negative for toxigenic C.difficile. Testing performed at | | | [facility];[address] [place] [address];[place] [address] | | + + + + +---------+ [...] | | Fingerstick | performed at [facility];[address] | | LAB | | | | [address];[place] | | | | | | [address] | | | | + + + [...] | | | | | [place] [address] | | | | + + + [...] | | Fingerstick | performed at [facility];[address] | | LAB | | | | [address];[place], [place] | | | | | | [address] | | | | + + + [...] | | Fingerstick | performed at [facility];[address] | | LAB | | | | [address];[place] | | | | | | [address] | | | | + + + [...] | | Fingerstick | performed at [facility];[address] | | LAB | | | | [address];[place], [place] | | | | | | [address] | | | | + + + [...] | | | | [facility], [address] [facility] [place] | | | | | | [place] | | | | | | [address] | | | | + + + + + + | RED CELL | 4.67Comment: Testing | 3.70 - 5.10 | EXTERNAL | | | COUNT | performed at [facility], [address] | M/uL | LAB | | | | [address], | | | | | | [place] [address] | | | | + + + + + + | Hgb | 14.6Comment: Testing | 11.3 - 15.5 | EXTERNAL | | | | performed at [facility], [address] | g/dL | LAB | | | | [address], | | | | | | [place] [address] | | | | + + + + + + | Hematocrit, | 42.8Comment: Testing | 34.0 - 46.0 % | EXTERNAL | | | POC | performed at [facility], [address] | | LAB | | | | [address], | | | | | | [place] [address] | | | | + + + + + + | MCV | 91.6Comment: Testing | 80.0 - 100.0 fl | EXTERNAL | | | | performed at [facility], [address] | | LAB | | | | [address], | | | | | | [place] [address] | | | | + + + + + + | MCH | 31.2Comment: Testing | 27.0 - 34.0 pg | EXTERNAL | | | | performed at [facility], [address] | | LAB | | | | [address], | | | | | | [place] [address] | | | | + + + + + + | MCHC | 34.1Comment: Testing | 32.0 - 35.5 | EXTERNAL | | | | performed at [facility], [address] | g/dL | LAB | | | | [address], | | | | | | [place] [address] | | | | + + + + + + | RDW-CV | 42.9Comment: Testing | 37 - 53 fl | EXTERNAL | | | | performed at [facility], [address] | | LAB | | | | [address], | | | | | | [place] [address] | | | | + + + + + + | Platelet | 313Comment: Testing | 150 - 400 K/uL | EXTERNAL | | | Count | performed at [facility], [address] | | LAB | | | Plasma | [address], | | | | | | [place] [address] | | | | + + + + + + | MPV | 8.4Comment: Testing | fl | EXTERNAL | | | | performed at [facility], [address] | | LAB | | | | [address], | | | | | | [place] [address] | | | | + + + + + + | Differentia | AUTOMATEDComment: | | EXTERNAL | | | l Type | Testing performed at | | LAB | | | | [facility], [address] | | | | | | [place] | | | | | | [address] | | | | + + + + + + | % Segmented | 63.65Comment: Testing | % | EXTERNAL | | | | performed at [facility], [address] | | LAB | | | Neutrophils | [place], | | | | | | [place] [address] | | | | + + + + + + | % | 25.97Comment: Testing | % | EXTERNAL | | | Lymphocytes | performed at [facility], [address] | | LAB | | | | [place], | | | | | | [place] [address] | | | | + + + + + + | % Monocytes | 9.67Comment: Testing | % | EXTERNAL | | | | performed at [facility], [address] | | LAB | | | | [place], | | | | | | [place] [address] | | | | + + + + + + | % | 0.35Comment: Testing | % | EXTERNAL | | | Eosinophils | performed at [facility], [address] | | LAB | | | | [place], | | | | | | [place] [address] | | | | + + + + + + | % Basophils | 0.36Comment: Testing | % | EXTERNAL | | | | performed at [facility], [address] | | LAB | | | | [address], | | | | | | [place] [address] | | | | + + + + + + | Absolute | 8.09 (H)Comment: Testing | 1.90 - 7.40 | EXTERNAL | | | Segmented | performed at [facility], [address] | [address] | LAB | | | Neutrophils | [address], | | | | | | [place] [address] | | | | + + + + + + | Absolute | 3.30Comment: Testing | 1.00 - 3.90 | EXTERNAL | | | Lymphocytes | performed at [facility], [address] | K[address]L | LAB | | | | [address], | | | | | | [place] [address] | | | | + + + + + + | Absolute | 1.23 (H)Comment: Testing | 0.00 - 0.80 | EXTERNAL | | | Monocytes | performed at [facility], [address] | [address] | LAB | | | | [address], | | | | | | [place] [address] | | | | + + + + + + | Absolute | 0.04Comment: Testing | 0.00 - 0.50 | EXTERNAL | | | Eosinophils | performed at [facility], [address] | K/uL | LAB | | | | [address], | | | | | | [place] [address] | | | | + + + + + + | Absolute | 0.05Comment: Testing | 0.00 - 0.10 | EXTERNAL | | | Basophils | performed at [facility], [address] | K/uL | LAB | | | | [place], | | | | | | [place] [address] | | | | + + + [...] | | | | | [place] [address] | | | | + + + + + + | K | 3.2 (L)Comment: Testing | 3.5 - 4.9 | EXTERNAL | | | | performed at [facility], [address] | mmol/L | LAB | | | | [place], | | | | | | [place] [address] | | | | + + + + + + | Cl | 102Comment: Testing | 99 - 109 mmol/L | EXTERNAL | | | | performed at [facility], [address] | | LAB | | | | [address], | | | | | | [place] [address] | | | | + + + + + + | CO2 | 28Comment: Testing | 23 - 32 mmol/L | EXTERNAL | | | | performed at [facility], [address] | | LAB | | | | [address], | | | | | | [place] [address] | | | | + + + + + + | Anion Gap | 12Comment: Testing | 5 - 20 mmol/L | EXTERNAL | | | | performed at [facility], [address] | | LAB | | | [address], | | | | | | [place] [address] | | | | + + + + + + | Glucose, | 186 (H)Comment: Testing | 65 - 99 mg/dL | EXTERNAL | | | Fasting | performed at [facility], [address] | | LAB | | | | [address], | | | | | | [place] [address] | | | | + + + + + + | BUN | 12Comment: Testing | 8 - 25 mg/dL | EXTERNAL | | | | performed at [facility], [address] | | LAB | | | | [address], | | | | | | [place] [address] | | | | + + + + + + | Creatinine | 0.7Comment: Testing | 0.50 - 1.00 | EXTERNAL | | | | performed at [facility], [address] | mg/dL | LAB | | | | [address], | | | | | | [place] [address] | | | | + + + + + + | BUN/Creatin | 17Comment: Testing | | EXTERNAL | | | ine Ratio | performed at [facility], [address] | | LAB | | | | [address], | | | | | | [place] [address] | | | | + + + + + + | Calcium | 8.8Comment: Testing | 8.5 - 10.5 | EXTERNAL | | | | performed at [facility], [address] | mg/dL | LAB | | | | [address] [facility], | | | | | | [place] [address] | | | | + + + [...] | | | | | | [place] [facility], | | | | | | [place] [address] | | | | + + + [...] | | Fingerstick | performed at [facility];[address] | | LAB | | | | [address] [place] | | | | | | [address] | | | | + + + [...] | | Fingerstick | performed at [facility];[address] | | LAB | | | | [place] [place] | | | | | | [address] | | | | + + + [...] DIAGNOSTICTESTING.THE | | | | | | PERUVIAN COLLEGE OF | | | | | [...] | | | | | performed at [facility], [address] | | | | | | [place] | | | | | | [place] [address] | | | | + + + [...] | | | | | | PURPOSES.THE PERUVIAN | | | | | | COLLEGE [...] | | | | | performed at [facility], [address] | | | | | | [place] | | | | | | [place] [address] | | | | + + + [...] EXTERNAL | | | | performed at [facility], [address] | | LAB | | | | [place], | | | | | | [place] [address] | | | | + + + [...] EXTERNAL | | | | performed at [facility], [address] | | LAB | | | | [place], | | | | | | [place] [address] | | | | + + + [...] | | LAB | | | | [facility];[address] | | | | | | [address];[place] [address] | | | | + + + + + + | Clarity | CLEARComment: Testing | | EXTERNAL | | | | performed at [facility];[address] | | LAB | | | | [place] | | | | | | [address] | | | | + + + + + + | Specific | 1.009Comment: Testing | 1.002 - 1.030 | EXTERNAL | | | Piqua | performed at [facility];[address] | | LAB | | | | [address];[place] | | | | | | [address] | | | | + + + + + + | Leukocyte | NEGATIVEComment: Testing | | EXTERNAL | | | Esterase, | performed at [facility];[address] | | LAB | | | Urine | [address];[place] | | | | | | [address] | | | | + + + + + + | Nitrite, | NEGATIVEComment: Testing | | EXTERNAL | | | Urine | performed at [facility];[address] | | LAB | | | | [address];[place] | | | | | | [address] | | | | + + + + + + | Urobilinoge | NORMALComment: Testing | mg/dL | EXTERNAL | | | n, Urine | performed at [facility];[address] | | LAB | | | | [address];[place] | | | | | | [address] | | | | + + + + + + | Protein, | NEGATIVEComment: Testing | mg/dL | EXTERNAL | | | Urine | performed at [facility];[address] | | LAB | | | | [address];[place] | | | | | | [address] | | | | + + + + + + | pH, Urine | 7.0Comment: Testing | 5.0 - 8.0 | EXTERNAL | | | | performed at [facility];[address] | | LAB | | | | [address];[place] | | | | | | [address] | | | | + + + + + + | Blood, | SMALL (A)Comment: | | EXTERNAL | | | Urine | Testing performed at | | LAB | | | | [facility];[address] | [address];[place] [address] | | | | + + + + + + | Ketones | 20 (A)Comment: Testing | mg/dL | EXTERNAL | | | | performed at [facility];[address] | | LAB | | | | [address] [place] | | | | | | [address] | | | | + + + + + + | Bilirubin, | NEGATIVEComment: Testing | | EXTERNAL | | | Urine | performed at [facility];[address] | | LAB | | | | [address];[place] | | | | | | [address] | | | | + + + + + + | Glucose, | >500 (A)Comment: Testing | mg/dL | EXTERNAL | | | Urine | performed at [facility];[address] | | LAB | | | | [address];[place] | | | | | | [address] | | | | + + + + + + | WBC, UA | 0-2Comment: Testing | 0 - 5 /hpf | EXTERNAL | | | | performed at [facility];[address] | | LAB | | | | [address];[place] | | | | | | [address] | | | | + + + + + + | RBC, UA | 0-2Comment: Testing | 0 - 5 /hpf | EXTERNAL | | | | performed at [facility];[address] | | LAB | | | | [address];[place] | | | | | | [address] | | | | + + + + + + | Bacteria, | 1+ (A)Comment: Testing | | EXTERNAL | | | UA | performed at [facility];[address] | | LAB | | | | [address];[place] | | | | | | [address] | | | | + + + + + + | Epithelial | 3-5Comment: Testing | /lpf | EXTERNAL | | | Cells | performed at [facility];[address] | | LAB | | | | [address];[place] | | | | | | [address] | | | | + + + + + + | MUCUS UA | 1+Comment: Testing | | EXTERNAL | | | | performed at [facility] | | LAB | | | | [address];[place], [place] | | | | | | [address] | | | | + + + [...] EXTERNAL | | | | performed at [facility];[address] | mmol/L | LAB | | | | [address];[place], [place] | | | | | | [address] | | | | + + + [...] K/uL | LAB | | | | [facility];[address] | | [address];[place] [address] | | | | + + + + + -+ | RED CELL | 5.38 (H)Comment: Testing | 3.70 - 5.10 | EXTERNAL | | | COUNT | performed at [facility];[address] | M/uL | LAB | | | | [address];[place] | | | | | | [address] | | | | + + + + + -+ | Hgb | 16.6 (H)Comment: Testing | 11.3 - 15.5 | EXTERNAL | | | | performed at [facility];[address] | g/dL | LAB | | | | [address];[place] | | | | | | [address] | | | | + + + + + -+ | Hematocrit, | 48.3 (H)Comment: Testing | 34.0 - 46.0 % | EXTERNAL | | | POC | performed at [facility];[address] | | LAB | | | | [address];[place] | | | | | | [address] | | | | + + + + + -+ | MCV | 89.8Comment: Testing | 80.0 - 100.0 fl | EXTERNAL | | | | performed at [facility];[address] | | LAB | | | | [address];[place] | | | | | | [address] | | | | + + + + + -+ | MCH | 30.9Comment: Testing | 27.0 - 34.0 pg | EXTERNAL | | | | performed at [facility];[address] | | LAB | | | | [address];[place] | | | | | | [address] | | | | + + + + + -+ | MCHC | 34.4Comment: Testing | 32.0 - 35.5 | EXTERNAL | | | | performed at [facility];[address] | g/dL | LAB | | | | [address];[place] | | | | | | [address] | | | | + + + + + -+ | RDW-CV | 42.4Comment: Testing | 37 - 53 fl | EXTERNAL | | | | performed at [facility];[address] | | LAB | | | | [address];[place] | | | | | | [address] | | | | + + + + + -+ | Platelet | 346Comment: Testing | 150 - 400 K/uL | EXTERNAL | | | Count | performed at [facility];[address] | | LAB | | | Plasma | [address];[place] | | | | | | [address] | | | | + + + + + -+ | MPV | 8.1Comment: Testing | fl | EXTERNAL | | | | performed at [facility];[address] | | LAB | | | | [address];[place] | | | | | | [address] | | | | + + + + + -+ | Differentia | AUTOMATEDComment: | | EXTERNAL | | | l Type | Testing performed at | | LAB | | | | [facility];[address];[place] [address] | | | | + + + + + -+ | % Segmented | 78.90Comment: Testing | % | EXTERNAL | | | | performed at [facility];[address] | | LAB | | | Neutrophils | [address];[place] | | | | | | [address] | | | | + + + + + -+ | % | 14.89Comment: Testing | % | EXTERNAL | | | Lymphocytes | performed at [facility];[address] | | LAB | | | | [address];[place] | | | | | | [address] | | | | + + + + + -+ | % Monocytes | 5.61Comment: Testing | % | EXTERNAL | | | | performed at [facility];[address] | | LAB | | | | [address];[place] | | | | | | [address] | | | | + + + + + -+ | % | 0.05Comment: Testing | % | EXTERNAL | | | Eosinophils | performed at [facility];[address] | | LAB | | | | [address];[place] | | | | | | [address] | | | | + + + + + -+ | % Basophils | 0.55Comment: Testing | % | EXTERNAL | | | | performed at [facility];[address] | | LAB | | | | [address];[place] | | | | | | [address] | | | | + + + + + -+ | Absolute | 12.53 (H)Comment: | 1.90 - 7.40 | EXTERNAL | | | Segmented | Testing performed at | K/uL | LAB | | | Neutrophils | [facility];[address] | | [address];[place] [address] | | | | + + + + + -+ | Absolute | 2.37Comment: Testing | 1.00 - 3.90 | EXTERNAL | | | Lymphocytes | performed at [facility];[address] | K/uL | LAB | | | | [address];[place] | | | | | | [address] | | | | + + + + + -+ | Absolute | 0.89 (H)Comment: Testing | 0.00 - 0.80 | EXTERNAL | | | Monocytes | performed at [facility];[address] | K/uL | LAB | | | | [address];[place] | | | | | | [address] | | | | + + + + + -+ | Absolute | 0.01Comment: Testing | 0.00 - 0.50 | EXTERNAL | | | Eosinophils | performed at [facility];[address] | K/uL | LAB | | | | [address];[place] | | | | | | [address] | | | | + + + + + -+ | Absolute | 0.09Comment: Testing | 0.00 - 0.10 | EXTERNAL | | | Basophils | performed at [facility];[address] | K/uL | LAB | | | | [address];[place] | | | | | | [address] | | | | + + + + + -+ | Na | 133 (L)Comment: Testing | 135 - 145 | EXTERNAL | | | | performed at [facility];[address] | mmol/L | LAB | | | | [address];[place] | | | | | | [address] | | | | + + + + + -+ | K | 3.3 (L)Comment: Testing | 3.5 - 4.9 | EXTERNAL | | | | performed at [facility];[address] | mmol/L | LAB | | | | [address];[place] | | | | | | [address] | | | | + + + + + -+ | Cl | 100Comment: Testing | 99 - 109 mmol/L | EXTERNAL | | | | performed at [facility];[address] | | LAB | | | | [address];[place] | | | | | | [address] | | | | + + + + + -+ | CO2 | 22 (L)Comment: Testing | 23 - 32 mmol/L | EXTERNAL | | | | performed at [facility];[address] | | LAB | | | | [address];[place] | | | | | | [address] | | | | + + + + + -+ | Anion Gap | 14Comment: Testing | 5 - 20 mmol/L | EXTERNAL | | | | performed at [facility];[address] | | LAB | | | | [address];[place] | | | | | | [address] | | | | + + + + + -+ | Glucose, | 298 (H)Comment: Testing | 65 - 99 mg/dL | EXTERNAL | | | Fasting | performed at [facility];[address] | | LAB | | | | [address];[place] | | | | | | [address] | | | | + + + + + -+ | BUN | 13Comment: Testing | 8 - 25 mg/dL | EXTERNAL | | | | performed at [facility];[address] | | LAB | | | | [address];[place] | | | | | | [address] | | | | + + + + + -+ | Creatinine | 0.84Comment: Testing | 0.50 - 1.00 | EXTERNAL | | | | performed at [facility];[address] | mg/dL | LAB | | | | [address];[place] | | | | | | [address] | | | | + + + + + -+ | BUN/Creatin | 15Comment: Testing | | EXTERNAL | | | ine Ratio | performed at [facility];[address] | | LAB | | | | [address];[place] | | | | | | [address] | | | | + + + + + -+ | Calcium | 9.1Comment: Testing | 8.5 - 10.5 | EXTERNAL | | | | performed at [facility];[address] | mg/dL | LAB | | | | [address];[place] | | | | | | [address] | | | | + + + + + -+ | Protein, | 7.3Comment: Testing | 6.3 - 8.2 g/dL | EXTERNAL | | | Total | performed at [facility];[address] | | LAB | | | | [address];[place] | | | | | | [address] | | | | + + + + + -+ | Albumin | 3.6Comment: Testing | 3.3 - 4.8 g/dL | EXTERNAL | | | | performed at [facility];[address] | | LAB | | | | [address];[place] | | | | | | [address] | | | | + + + + + -+ | Globulin | 3.6Comment: Testing | 1.3 - 4.9 g/dL | EXTERNAL | | | | performed at [facility];[address] | | LAB | | | | [address];[place] | | | | | | [address] | | | | + + + + + -+ | A/G Ratio | 1.0Comment: Testing | 1.0 - 2.4 | EXTERNAL | | | | performed at [facility];[address] | | LAB | | | | [address];[place] | | | | | | [address] | | | | + + + + + -+ | Bilirubin | 0.4Comment: Testing | 0.1 - 1.5 mg/dL | EXTERNAL | | | Total | performed at [facility];[address] | | LAB | | | | [address];[place] | | | | | | [address] | | | | + + + + + -+ | ALP, | 105Comment: Testing | 35 - 115 U/L | EXTERNAL | | | External | performed at [facility];[address] | | LAB | | | | [address];[place] | | | | | | [address] | | | | + + + + + -+ | AST | 23Comment: Testing | 10 - 45 U/L | EXTERNAL | | | | performed at [facility];[address] | | LAB | | | | [address];[place] | | | | | | [address] | | | | + + + + + -+ | ALT | 35Comment: Testing | 10 - 65 U/L | EXTERNAL | | | | performed at [facility];[address] | | LAB | | | | [address];[place] | | | | | | [address] | | | | + + + [...] | | | | | | at [facility];[address] | | | | | | [address];[place] [address] | | | | + + + + + -+ | CK, Total | 52Comment: Testing | 30 - 240 U/L | EXTERNAL | | | | performed at [facility];[address] | | LAB | | | | [address];[place] | | | | | | [address] | | | | + + + [...] | | | | | performed at [facility];[address] | | | | | | [address];[place] | | | | | | [address] | | | | + + + + + -+ | aPTT, | 26Comment: Testing | 23 - 32 seconds | EXTERNAL | | | Patient | performed at [facility];[address] | | LAB | | | | [address];[place] | | | | | | [address] | | | | + + + + + -+ | CK-MB | 1.1Comment: Testing | 0.5 - 3.6 ng/mL | EXTERNAL | | | | performed at [facility];[address] | | LAB | | | | [address];[place] | | | | | | [address] | | | | + + + [...] EXTERNAL | | | | performed at [facility] | | LAB | | | | [facility];[place], [place] | | | | | | [address] | | | | + + + [...] EXTERNAL | | | | performed at [facility] | | LAB | | | | [address] [facility];[place] | | | | | | [address] | | | | + + + [...] | | | | | makeup editor MADISON THRASHER (2) | | | | | | on 11/20/2015 3:42:06 PM | | | | | | | | | | + + + + + + + + | Specimen | + + | | + + + + + | Narrative | Performed At | + + + | Historically converted procedure from [facility] environment | EXTERNAL LAB | + + [...]
--- OUTSIDE RECORDS SUMMARY | ~2019-04-09 | XMS | Encounter Summary ---
Demographics + + + | Address | [address] | | | [place] [address] | + + + | Home Phone | | + + + | Preferred Language | Unknown | + + + | Marital Status | | + + + | Moravian Affiliation | Unknown | + + + | Race | Unknown | + + + | Ethnic Group | Unknown | + + + Author + + + | Author | [facility] | | | and [place] | + + + | Organization | [facility] | | | and [place] | [...] Team Providers + +------+ + | Care Teacher Adult Education Name | Role | Phone | + +------+ + PCP | Unavailable | + +------+ + Encounter Details +--------+ + + + + | Date | Type | Department | Care Team | Description | +--------+ + + + + | 11/25/ | Hospital | [facility] | Conversion | | | 2016 | Encounter | [facility] | Transaction, | | | | | SERVICES [address] | Provider Unknown | | | | | [place] | | | | | | [phone] | (Fax) | | | | | [phone] | | | +--------+ + + + [...] Cortés RN, CDE Service: (none) Author Type: Medical Anthropology Director Filed: 11/26/15 1230 Date of Service: 11/26/15 1100 Status: Signed Neurology Nurse: Heidi Cortés RN, CDE (Medical Anthropology Director) Progress note for general diabetes (individual) REASON [...] be seeing her PCP (Lynne Lowry in [place]) on 12/16/15. OBJECTIVE: Wt Readings from Last [...] Nutrition Goal: Yes Follow meal plan: New [facility] Resource List (handouts) Class Packets: Insulin Packet PLAN: Whit will return for follow-up on 12/24/15. Encouraged her to contact us in the meantime wi th any questions or concerns. Heidi Cortés RN, CDE Java Systems Analyst 11/26/2015 12:29 PM documented in th is encounter Plan of Treatment Not on filedocumented as of this encounter Visit Diagnoses Not on filedocumented in this encounter
--- OUTSIDE RECORDS SUMMARY | ~2019-04-09 | XMS | Encounter Summary ---
Demographics + + + | Address | [address] | | | [place] [address] | + + + | Home Phone | | + + + | Preferred Language | Unknown | + + + | Marital Status | | + + + | Congregation Affiliation | Unknown | + + + | Race | Unknown | + + + | Ethnic Group | Unknown | + + + Author + + + | Author | Located [facility] [place] | | | and [place] | + + + | Organization | Located Within [facility] [place] | | | and [...] Team Providers + +------+ + | Care Tenderizer Tender Name | Role | Phone | + +------+ + PCP | Unavailable | + +------+ + Encounter Details +--------+ + + + + | Date | Type | Department | Care Team | Description | +--------+ + + + + | 05/26/ | Emergency | [facility] | Vinh Baker, | Acute abdominal | | 2013 - | | MEDICAL CENTER | MD Amaris THOMSON | pain; Acute | | | | EMERGENCY CENTER | [place] [address] | gastroenteritis | | 05/27/ | | [address] | [phone] | | | 2013 | | [place], [place] | | | | | | [address] | | | | | | [phone] | | | +--------+ + + + [...] Electronically | | | signed by Jose Nvaa MD on May 27 2013 12:23AM SITE [...] | Procedure Note | + + | Nriaj Lepe Conversion - 11/24/2018 8:21 PM PDT [...] EXTERNAL | | | | performed at [facility];[address] | | LAB | | | | [address];[place] | | | | | | [address] | | | | + + + + + + | RED CELL | 5.11 (H)Comment: Testing | 3.70 - 5.10 | EXTERNAL | | | COUNT | performed at [facility];888 | M/uL | LAB | | | | [address];[place] | | | | | | [address] | | | | + + + + + + | Hgb | 15.9 (H)Comment: Testing | 11.3 - 15.5 | EXTERNAL | | | | performed at [facility];888 | g/dL | LAB | | | | [address];[place] | | | | | | [address] | | | | + + + + + + | Hematocrit, | 47.4 (H)Comment: Testing | 34.0 - 46.0 % | EXTERNAL | | | POC | performed at [facility];[address] | | LAB | | | | [address];[place] | | | | | | [address] | | | | + + + + + + | MCV | 92.7Comment: Testing | 80.0 - 100.0 fl | EXTERNAL | | | | performed at [facility];888 | | LAB | | | | [address];[place] | | | | | | [address] | | | | + + + + + + | MCH | 31.1Comment: Testing | 27.0 - 34.0 pg | EXTERNAL | | | | performed at [facility];[address] | | LAB | | | | [address];[place] | | | | | | [address] | | | | + + + + + + | MCHC | 33.6Comment: Testing | 32.0 - 35.5 | EXTERNAL | | | | performed at [facility];888 | g/dL | LAB | | | | [address];[place] | | | | | | [address] | | | | + + + + + + | RDW-CV | 43.3Comment: Testing | 37 - 53 fl | EXTERNAL | | | | performed at [facility];[address] | | LAB | | | | [address];[place] | | | | | | [address] | | | | + + + + + + | Platelet | 354Comment: Testing | 150 - 400 K/uL | EXTERNAL | | | Count | performed at [facility];888 | | LAB | | | Plasma | [address];[place] | | | | | | [address] | | | | + + + + + + | MPV | 8.5Comment: Testing | fl | EXTERNAL | | | | performed at [facility];[address] | | LAB | | | | [address];[place] | | | | | | [address] | | | | + + + + + + | Differentia | AUTOMATEDComment: | | EXTERNAL | | | l Type | Testing performed at | | LAB | | | | [facility];[address];[place] [address] | | | | + + + + + + | % Segmented | 79.0Comment: Testing | % | EXTERNAL | | | | performed at [facility];888 | | LAB | | | Neutrophils | [address];[place] | | | | | | [address] | | | | + + + + + + | % | 15.5Comment: Testing | % | EXTERNAL | | | Lymphocytes | performed at [facility];[address] | | LAB | | | | [address];[place] | | | | | | [address] | | | | + + + + + + | % Monocytes | 4.9Comment: Testing | % | EXTERNAL | | | | performed at [facility];[address] | | LAB | | | | [address];[place] | | | | | | [address] | | | | + + + + + + | % | 0.4Comment: Testing | % | EXTERNAL | | | Eosinophils | performed at [facility];[address] | | LAB | | | | [address];[place] | | | | | | [address] | | | | + + + + + + | % Basophils | 0.2Comment: Testing | % | EXTERNAL | | | | performed at [facility];[address] | | LAB | | | | [address];[place] | | | | | | [address] | | | | + + + + + + | Absolute | 11.1 (H)Comment: Testing | 1.9 - 7.4 K/uL | EXTERNAL | | | Segmented | performed at [facility];888 | | LAB | | | Neutrophils | [address];[place] | | | | | | [address] | | | | + + + + + + | Absolute | 2.2Comment: Testing | 1.0 - 3.9 K/uL | EXTERNAL | | | Lymphocytes | performed at [facility];[address] | | LAB | | | | [address];[place] | | | | | | [address] | | | | + + + + + + | Absolute | 0.7Comment: Testing | 0 - 0.8 K/uL | EXTERNAL | | | Monocytes | performed at [facility];[address] | | LAB | | | | [address];[place] | | | | | | [address] | | | | + + + + + + | Absolute | 0.1Comment: Testing | 0 - 0.5 K/uL | EXTERNAL | | | Eosinophils | performed at [facility];[address] | | LAB | | | | [address];[place] | | | | | | [address] | | | | + + + + + + | Absolute | 0.0Comment: Testing | 0 - 0.1 K/uL | EXTERNAL | | | Basophils | performed at [facility];[address] | | LAB | | | | [address];[place] | | | | | | [address] | | | | + + + [...] EXTERNAL | | | | performed at [facility];[address] | | LAB | | | | [address];[place], [place] | | | | | | [address] | | | | + + + [...] EXTERNAL | | | | performed at [facility];888 | mmol/L | LAB | | | | [address];[place] | | | | | | [address] | | | | + + + + + + | K | 3.8Comment: Testing | 3.5 - 4.9 | EXTERNAL | | | | performed at [facility];888 | mmol/L | LAB | | | | [address];[place] | | | | | | [address] | | | | + + + + + + | Cl | 104Comment: Testing | 99 - 109 mmol/L | EXTERNAL | | | | performed at [facility];[address] | | LAB | | | | [address];[place] | | | | | | [address] | | | | + + + + + + | CO2 | 26Comment: Testing | 23 - 32 mmol/L | EXTERNAL | | | | performed at [facility];[address] | | LAB | | | | [address];[place] | | | | | | [address] | | | | + + + + + + | Anion Gap | 11Comment: Testing | 5 - 20 mmol/L | EXTERNAL | | | | performed at [facility];[address] | | LAB | | | | [address];[place] | | | | | | [address] | | | | + + + + + + | Glucose, | 329 (H)Comment: Testing | 65 - 99 mg/dL | EXTERNAL | | | Fasting | performed at [facility];[address] | | LAB | | | | [address];[place] | | | | | | [address] | | | | + + + + + + | BUN | 11Comment: Testing | 8 - 25 mg/dL | EXTERNAL | | | | performed at [facility];[address] | | LAB | | | | [address];[place] | | | | | | [address] | | | | + + + + + + | Creatinine | 1.03 (H)Comment: Testing | 0.50 - 1.00 | EXTERNAL | | | | performed at [facility];888 | mg/dL | LAB | | | | [address];[place] | | | | | | [address] | | | | + + + + + + | BUN/Creatin | 11Comment: Testing | | EXTERNAL | | | ine Ratio | performed at [facility];[address] | | LAB | | | | [address];[place] | | | | | | [address] | | | | + + + + + + | Calcium | 9.7Comment: Testing | 8.5 - 10.2 | EXTERNAL | | | | performed at [facility];888 | mg/dL | LAB | | | | [address];[place] | | | | | | [address] | | | | + + + + + + | Protein, | 8.7 (H)Comment: Testing | 6.3 - 8.2 g/dL | EXTERNAL | | | Total | performed at [facility];[address] | | LAB | | | | [address];[place] | | | | | | [address] | | | | + + + + + + | Albumin | 4.5Comment: Testing | 3.6 - 5.0 g/dL | EXTERNAL | | | | performed at [facility];[address] | | LAB | | | | [address];[place] | | | | | | [address] | | | | + + + + + + | Globulin | 4.2Comment: Testing | 1.3 - 4.9 g/dL | EXTERNAL | | | | performed at [facility];[address] | | LAB | | | | [address];[place] | | | | | | [address] | | | | + + + + + + | A/G Ratio | 1.1Comment: Testing | 1.0 - 2.4 | EXTERNAL | | | | performed at [facility];[address] | | LAB | | | | [address];[place] | | | | | | [address] | | | | + + + + + + | Bilirubin | 0.2Comment: Testing | 0.1 - 1.5 mg/dL | EXTERNAL | | | Total | performed at [facility];[address] | | LAB | | | | [address];[place] | | | | | | [address] | | | | + + + + + + | ALP, | 144 (H)Comment: Testing | 35 - 115 U/L | EXTERNAL | | | External | performed at [facility];[address] | | LAB | | | | [address];[place] | | | | | | [address] | | | | + + + + + + | AST | 19Comment: Testing | 10 - 45 U/L | EXTERNAL | | | | performed at [facility];[address] | | LAB | | | | [address];[place] | | | | | | [address] | | | | + + + + + + | ALT | 28Comment: Testing | 10 - 65 U/L | EXTERNAL | | | | performed at [facility];[address] | | LAB | | | | [address];[place] | | | | | | [address] | | | | + + + [...] | | | | | | at [facility];[address] | | | | [address];[place] [address] | | | | + + + [...]
--- OUTSIDE RECORDS SUMMARY | ~2019-04-09 | XMS | Encounter Summary ---
Demographics + + + | Address | [address] | | | [place] [address] | + + + | Home Phone | | + + + | Preferred Language | Unknown | + + + | Marital Status | | + + + | Advent Affiliation | Unknown | + + + | Race | Unknown | + + + | Ethnic Group | Unknown | + + + Author + + + | Author | [facility] [place] | | | and [place] | + + + | Organization | [facility] [place] | | | and [...] Team Providers + +------+ + | Care Radiochemical Technician Name | Role | Phone | + +------+ + PCP | Unavailable | + +------+ + Encounter Details +--------+ + + + + | Date | Type | Department | Care Team | Description | +--------+ + + + + | 03/27/ | Emergency | [facility] | Susannah Izquierdo, | Shoulder sprain, | | 2014 | | [facility] | DO [address] | right, initial | | | | EMERGENCY [place]OSÉ | [place] [address] | encounter; Fall from | | | | [address] | [phone] | ground level; Hand | | | | [place] | | abrasion, | | | | [address] | | unspecified | | | | [phone] | | laterality, initial | | | | | | encounter | +--------+ + + + + Social [...] + +--------+ + + + | XR SHOULDER RIGHT 2 | Routin | 03/27/2015 | | Results for this | | + VW | e | 11:13 AM | | procedure are in the | | | | PST | | results section. | + +--------+ + + + | XR HUMERUS RIGHT 2 + | Routin | 03/27/2015 | | Results for this | | VW | e | 11:13 AM | | procedure are in the | | | | PST | | results section. | + +--------+ + + + documented in this encounter Results XR Shoulder Right 2 + Vw (03/27/2015 11:13 AM PST) + + | Specimen | + + | | + + + + + | Impressions | Performed At | + + + | 1. Mild to moderate AC joint degenerative spurring. 2. Mild | | | spurring along the lateral aspect of the greater tuberosity. This may | | | reflect calcific tendinosis. Correlate clinically. 3. No | | | subluxation Electronically signed by Cyrus Bates MD on | | | 03/27/2015 11:18 AM | | + + + + + + | Narrative | Performed At | + + + | HISTORY: Right shoulder injury. COMPARISON: Right humerus same | | | day. TECHNIQUE: AP internal rotation, Grashey, transscapular Y | | | views of the right shoulder. FINDINGS: There is mild spurring | | | along the lateral aspect of the greater tuberosity on the Grashey | | | view. There is mild to moderate degenerative spurring of the AC joint, | | | without impingement. No soft tissue dystrophic calcifications. No | | | subluxation. | | + + + + + | Procedure Note | + + | Roberth, Rad Conversion - 11/24/2018 2:57 AM PDT HISTORY:Right shoulder injury. | | COMPARISON:Right humerus same day. TECHNIQUE:AP internal rotation, Grashey, | | transscapular Y views of the right shoulder. FINDINGS:There is mild spurring along the | | lateral aspect of the greater tuberosity on the Grashey view. There is mild to moderate | | degenerative spurring of the AC joint, without impingement. No soft tissue dystrophic | | calcifications. No subluxation. IMPRESSION: 1. Mild to moderate AC joint degenerative | | spurring.2. Mild spurring along the lateral aspect of the greater tuberosity. This may | | reflect calcific tendinosis. Correlate clinically.3. No subluxation Electronically | | signed by Cyrus Bates MD on 03/27/2015 11:18 AM | |FINDINGS: | |There is mild spurring along the lateral aspect of the greater tuberosity on the Grashey vi ew. There is mild to moderate degenerative spurring of the AC joint, without impingement. No soft tissue dystrophic calcifications. No subluxation. | | | |IMPRESSION: | |1. Mild to moderate AC joint degenerative spurring. | |2. Mild spurring along the lateral aspect of the greater tuberosity. This may reflect calc ific tendinosis. Correlate clinically. | |3. No subluxation | | | | | + + XR Humerus Right 2 + Vw (03/27/2015 11:13 AM PST) + + | Specimen | + + | | + + + + + | Impressions | Performed At | + + + | 1. I see no evidence of right humeral fracture. Electronically | | | signed by Cyrus Bates MD on 03/27/2015 11:17 AM | | + + + + + + | Narrative | Performed At | + + + | HISTORY: Right humerus injury. COMPARISON: Right shoulder same | | | day. TECHNIQUE: AP, lateral films of the right humerus. | | | FINDINGS: I do not see evidence of right humeral fracture. Moderate | | | AC joint degenerative change. No definable soft tissue swelling. | | + + + + + | Procedure Note | + + | Roberth, Rad Conversion - 11/24/2018 2:57 AM PDT HISTORY:Right humerus injury. | | COMPARISON:Right shoulder same day. TECHNIQUE:AP, lateral films of the right humerus. | | FINDINGS:I do not see evidence of right humeral fracture. Moderate AC joint degenerative | | change. No definable soft tissue swelling. IMPRESSION: 1. I see no evidence of right | | humeral fracture. | | | |TECHNIQUE: | |AP, lateral films of the right humerus. | | | |FINDINGS: | |I do not see evidence of right humeral fracture. Moderate AC joint degenerative change. No definable soft tissue swelling. | | | |IMPRESSION: | |1. I see no evidence of right humeral fracture. | | | | | + + documented in this encounter Visit Diagnoses + + | Diagnosis | + + | Shoulder sprain, right, initial encounter | + + | Fall from ground level | + + | Hand abrasion, unspecified laterality, initial encounter | + + documented in this encounter"
--- OUTSIDE RECORDS SUMMARY | ~2019-04-09 | XMS | Encounter Summary ---
Demographics + + + | Address | [address] | | | [place] [address] | + + + | Home Phone | | + + + | Preferred Language | Unknown | + + + | Marital Status | | + + + | Tenriism Affiliation | Unknown | + + + | Race | Unknown | + + + | Ethnic Group | Unknown | + + + Author + + + | Author | [facility] [place] | | | and [place] | + + + | Organization | [facility] [place] | | | and [...] + +------+ + | Care Director Of Training Name | Role | Phone | + +------+ + PCP | Unavailable | + +------+ + Encounter Details +--------+ + + + + | Date | Type | Department | Care Team | Description | +--------+ + + + + | 08/04/ | Hospital | [facility] | Conversion | [place] [facility] | | 2002 - | Encounter | [facility] | Transaction, | UNSPEC ([facility]) | | | | CARE FLOOR 4 888 | Provider Unknown | | | 08/06/ | | [address] | | | | 2002 | | [place], [place] | (Fax) | | | | | [address] | | | | | | [phone] | | | +--------+ + + + [...]
--- OUTSIDE RECORDS SUMMARY | ~2019-04-09 | XMS | Encounter Summary ---
Demographics + + + | Address | [address] | | | [place] [address] | + + + | Home Phone | | + + + | Preferred Language | Unknown | + + + | Marital Status | | + + + | Buddhism Affiliation | Unknown | + + + | Race | Unknown | + + + | Ethnic Group | Unknown | + + + Author + + + | Author | [facility] [place] | | | and [place] | + + + | Organization | [facility] [place] | | | and [place] [...] Team Providers + +------+ + | Care Coach Cleaner Name | Role | Phone | + +------+ + PCP | Unavailable | + +------+ + Encounter Details +--------+ + + + + | Date | Type | Department | Care Team | Description | +--------+ + + + + | 09/03/ | Hospital | [facility] | Conversion | Preop examination; | | 2015 | Encounter | MEDICAL CENTER | Transaction, | Chronic ischemic | | | | NUCLEAR MEDICINE | Provider Unknown | heart disease; | | | | [address] | | Personal history of | | | | [place], [place] | (Fax) | tobacco use | | | | [address] | | | | | | [phone] | | | +--------+ + + + [...] SERVICE September 04, 2015 HISTORY Mrs. Whit Hutr is a | | | pleasant 60-year-old [...]
--- OUTSIDE RECORDS SUMMARY | ~2019-04-09 | XMS | Encounter Summary ---
Demographics + + + | Address | [address] | | | [place] [address] | + + + | Home Phone | | + + + | Preferred Language | Unknown | + + + | Marital Status | | + + + | Pentecostal Affiliation | Unknown | + + + | Race | Unknown | + + + | Ethnic Group | Unknown | + + + Author + + + | Author | [facility] [place] | | | and [place] | + + + | Organization | [facility] [place] | | | and [place] [...] Team Providers + +------+ + | Care Sample Paster Name | Role | Phone | + [...] Encounter | CONVERSION [address] | [place] [address] [address] | Pelvic Region and | | | | [address] | [address] | Thigh | | | | [place], [place] | [place] [address] | | | | | [address] | [phone] | | | | | [phone] | | | +--------+ + + + [...] Performed At | + + + | [id number] | | | Page 1 RADIOLOGY | | | / | | | O/P [facility] | | | NAME: [place] [address] | | | | | | | | | DATE OF : 1955 ORDER NUMBER: [id number] EXAM | | | DATE/TIME: 06/04/2008 09:22 [...] 03:51 P | | | A P JOEL/[id number]/ | | | cc: MD BRAYDON DIMAS DO | | + + + + + | Procedure Note | + + | Niraj Lepe Conversion - 12/04/2018 12:40 AM PDT | | [id number] Page 1 | | RADIOLOGY / | | O/P | | [facility] NAME: CAPRICE AMADOR | | [place] [address] | | | | DATE OF : 1955 | | | | ORDER NUMBER: [id number] | | EXAM DATE/TIME: 06/04/2008 09:22 A [...] | A | | P | | [facility]/[id number]/ | | cc: KURT GARZA MD | | BRAYDON PENA DO | + + documented in this encounter Visit Diagnoses + + | Diagnosis | + + | Pain in joint, pelvic region and thigh | + + documented in this encounter"
--- OUTSIDE RECORDS SUMMARY | ~2019-04-09 | XMS | Encounter Summary ---
Demographics + + + | Address | [address] | | | [place] [address] | + + + | Home Phone [...] | Organization | [facility] [place] | | | and [...] Team Providers + +------+ + | Care Accessories Repairer Name | Role | Phone | + +------+ + PCP | Unavailable | + +------+ + Encounter Details +--------+ + + + + | Date | Type | Department | Care Team | Description | +--------+ + + + + | 09/03/ | Hospital | [facility] | Conversion | | | 2016 | Encounter | [facility] | Transaction, | | | | | NUCLEAR MEDICINE | Provider Unknown | | | | | [address] | | | | | | [place] | (Fax) | | | | | [address] | | | | | | [phone] | | | +--------+ + + + [...]
--- OUTSIDE RECORDS SUMMARY | ~2019-04-09 | XMS | Encounter Summary ---
Demographics + + + | Address | [address] | | | [place] [address] | + + + | Home Phone [...] + | Author | [facility] [place] | | | and [place] | + + + | Organization | [facility] [place] | | | and [...] Team Providers + +------+ + | Care Oracle Soa Consultant Name | Role | Phone | + +------+ + PCP | Unavailable | + +------+ + Encounter Details +--------+ + + + + | Date | Type | Department | Care Team | Description | +--------+ + + + + | 03/27/ | Emergency | [facility] | Susannah Izquierdo, | Shoulder sprain, | | 2014 | | [facility] | DO [address] | right, initial | | | | EMERGENCY [place] | [place] [address] | encounter; Fall from | | | | [address] | [phone] | ground level; Hand | | | | [place] | | abrasion, | | | | [address] | | unspecified | | | | [phone] | | laterality, initial | | | [...]
--- OUTSIDE RECORDS SUMMARY | ~2019-04-09 | XMS | Encounter Summary ---
Demographics + + + | Address | [address] | | | [place] [address] | + + + | Home Phone [...] + | Organization | [facility] | | | and [...] Team Providers + +------+ + | Care Contract Programmer Name | Role | Phone | + +------+ + PCP | Unavailable | + +------+ + Encounter Details +--------+ + + + + | Date | Type | Department | Care Team | Description | +--------+ + + + + | 03/04/ | Hospital | [facility] | Consuelo Fishman | Intractable | | 2016 - | Encounter | [facility] | MD [address] | abdominal pain; | | | | CARE FLOOR [address] | [address] | Gastritis and | | 03/08/ | | [address] | [place] [address] | duodenitis; | | 2016 | | [place] | [phone] | Gastroesophageal | | | | [address] | | reflux disease | | | | [phone] | | without esophagitis; | | | [...] | | | | | | insulin ([facility]); | | | | | | Hypokalemia; [...] Date of Service: 03/08/16 1523 Status: Signed Cleaning Associate: Clementine Broussard MD (Physician) [facility] Service: Hospitalist Discharge Summary Date [...] Mar 04 2016 9:59PM Referring Provider Line: [phone] ID: 108 Ct Chest Non-contrast 03/05/[address] finding on noncontrast evaluation of the chest. The lungs are clear . RADIA Electronically signed by Nick Williamson MD on Mar 05 2016 2:47AM Referring Provider Line: [phone] ID: 107 Ct Abdomen Pelvis With Contrast [...] 05 2016 1:22AM Ref erring Provider Line: [phone] ID: [id number] Echo Cardiac Adult Complete 03/05/2016 [...] ventricle cavity size is normal. 6. Left caroilna tricular wall thickness is normal. 7. The [...] Follow up: Ian Witt MD [address] [facility] [address] Schedule an appointment as soon as possible for a visit in 2 weeks post hospital follow up DO CARLOS Bowers [address] [place] [address] Schedule an appointment as soon as possible [...] Commonly known as: ULTRAM vitamin D2 (ergocalciferol) 69265 UNITS capsule Refills: 0 Where to Get [...] documentation of disc harge summary. Dictation and cash van salesperson or software, Kyte, used which may contain error for similar [...] Date of Service: 03/08/16 1522 Status: Signed Cleaning Associate: Heather Ziegler RN (Registered Nurse) Patient signed [...] Date of Service: 03/08/16 1310 Status: Signed Cleaning Associate: Rochelle Amaya RN (Registered Nurse) 03/08/16 1310 [...] Notes by Fermin Weston MD at 03/07/16 5665 Author: Fermin Weston MD Service: (none) Author Type: Physician Filed: 03/07/16 5909 Date of Service: 03/07/161248 Status: Signed Cleaning Associate: Fermin Weston MD (Physician) [facility] Service: Gastroenterology Progress Note Hospital Day: LOS: [...] Mar 04 2016 9:59PM Referring Provider Line: [phone] ID: 108 Ct Chest Non-contrast 03/05/[address] finding on noncontrast evaluation of the chest. The lungs are clear . RADIA Electronically signed by Nick Williamson MD on Mar 05 2016 2:47AM Referring Provider Line: [phone] ID: 107 Ct Abdomen Pelvis With Contrast [...] 05 2016 1:22AM Ref erring Provider Line: [phone] ID: [id number] Echo Cardiac Adult Complete 03/05/2016 [...] MD Service: Hospitalist Author Type: Physician Filed: 03/07/1604 Date of Service: 03/07/16825 Status: Signed Cleaning Associate: Clementine Broussard MD (Physician) [facility] Service: Hospitalist Progress Note Hospital [...] AM COLOR UA STRAW CLARITY CLEAR Specific [place], UA 1.002 - 1.030 1.033 (H) Leukocyes, [...] Mar 04 2016 9:59PM Referring Provider Line: [phone] ID: 108 Ct Chest Non-contrast 03/05/[address] finding on noncontrast evaluation of the chest. The lungs are clear . RADIA Electronically signed by Nick Williamson MD on Mar 05 2016 2:47AM Referring Provider Line: [phone] ID: 107 Ct Abdomen Pelvis With Contrast [...] 05 2016 1:22AM Ref erring Provider Line: [phone] ID: [id number] PROBLEM LIST Principal Problem: Epigastric [...] Inpatient Code Status: Full Code Dictation and cash van salesperson or software, Kyte, used which may contain error for similar s ounding words even after review. Personal communication requested for any clarification. CLEMENTINE BROUSSARD MD 03/07/2016 8:26 AM onversion Transact ion, Provider Unknown - 03/06/2016 3:16 PM PSTFormatting of this note might be different fr om the original. Progress Notes by Emily Pearson RD at 03/06/16 3789 Author: Emily Pearson RD Service: (none) Author Type: Registered Dietitian Filed: 03/06/161516 Date of Service: 03/06/161515 Status: Signed Cleaning Associate: Emily Pearson RD (Lottery Sales Clerk) 03/06/16 4909 Subjective Timepoint Admit Pt c/o Pt triggered [...] Estimated Energy Needs Total Energy Estimated Needs 1024-4557 kcal Method for Estimating Needs 25-30 kcal/kg/day [...] 03/06/16830 Date of Service: 03/06/16820 Status: Signed Cleaning Associate: Clementine Broussard MD (Physician) [facility] Service: Hospitalist Progress Note Hospital [...] AM COLOR UA STRAW CLARITY CLEAR Specific [place], UA 1.002 - 1.030 1.033 (H) Leukocyes, [...] Mar 04 2016 9:59PM Referring Provider Line: [phone] ID: 108 Ct Chest Non-contrast 03/05/[address] finding on noncontrast evaluation of the chest. The lungs are clear . RADIA Electronically signed by Nick Williamson MD on Mar 05 2016 2:47AM Referring Provider Line: [phone] ID: 107 Ct Abdomen Pelvis With Contrast [...] 05 2016 1:22AM Ref erring Provider Line: [phone] ID: [id number] PROBLEM LIST Principal Problem: Epigastric [...] Inpatient Code Status: Full Code Dictation and cash van salesperson or software, Kyte, used which may contain error for similar [...] 03/06/16345 Date of Service: 03/06/16344 Status: Signed Cleaning Associate: Curt L Caleb, RN (Registered Nurse) Pt BP in the 200's IV Hydralazine given will recheck again in 30 mins. Curt Ellis RN Clementine Sol MD - 03/05/2016 3:56 PM PST Progress Notes by Clementine Broussard MD at 03/05/16 8828 Author: Clementine Broussard MD Service: Hospitalist Author Type: Physician Filed: 03/05/16 9842 Date of Service: 03/05/16 1338 Status: Signed Cleaning Associate: Clementine Broussard MD (Physician) [facility] Service: Hospitalist Progress Note Hospital [...] AM COLOR UA STRAW CLARITY CLEAR Specific [place], UA 1.002 - 1.030 1.033 (H) Leukocyes, [...] Mar 04 2016 9:59PM Referring Provider Line: [phone] ID: 108 Ct Chest Non-contrast 03/05/[address] finding on noncontrast evaluation of the chest. The lungs are clear . RADIA Electronically signed by Nick Williamson MD on Mar 05 2016 2:47AM Referring Provider Line: [phone] ID: 107 Ct Abdomen Pelvis With Contrast [...] 05 2016 1:22AM Ref erring Provider Line: [phone] ID: [id number] PROBLEM LIST Principal Problem: Epigastric [...] Inpatient Code Status: Full Code Dictation and cash van salesperson or software, Kyte, used which may contain error for similar s ounding words even after review. Personal communication requested for any clarification. CLEMENTINE BROUSSARD MD 03/05/2016 3:57 PM onversion Transact ion, Provider Unknown - 03/05/2016 3:38 PM PSTFormatting of this note might be different fr om the original. Nurse Progress Note by Gissell Rice RN at 03/05/16 7813 Author: Gissell Rice RN Service: (none) Author Type: Registered Nurse Filed: 03/05/16 7972 Date of Service: 03/05/161537 Status: Signed Cleaning Associate: Gissell Rice RN (Registered Nurse) Patient continues [...] Author: RONI Alvarenga Service: (none) Author Type: Camera Prototyping Engineer Filed: 03/05/16813 Date of Service: 03/05/16812 Status: Signed Cleaning Associate: RONI Alvarenga (Camera Prototyping Engineer) 03/05/16799 Discharge Planning Evaluation Admitting Diagnosis NSTEMI Readmission No Living Arrangements Spouse/significant other Support Systems Spouse/significant other Type of Residence Private residence Independent with ADL's Yes Independent with Mobility Yes Home Care Services No Mental Status Oriented Prior functional status indpt, home with spouse, 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 Anticipated Discharge Plan Post Acute [...] iadls, no dme, 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 [employer], no needs anticipated for DCP at this [...] 03/05/16534 Date of Service: 03/05/16534 Status: Signed Cleaning Associate: Ximena Florez RPH (Pharmacist) Clinical Pharmacy Note: [...] | | | Fingerstick | performed at [facility];[address] | | LAB | | | | [address] [place] | | | | | | [address] | | | | + + + [...] | | | | | performed at [facility], [address] | | | | | | [facility] | | | | | | [place] [address] | | | | + + + [...] | | | | | performed at [facility], [address] | | | | | | [place] | | | | | | [place] [address] | | | | + + + [...] | | | | ting performed at [facility], | | | | | | [address] | | | | | | [place] [address] | | | | + + + [...] | | e, Free | performed at [facility], [address] | nmol/L | LAB | | | | [address] [place] | | | | | | [place] [address] | | | | + + + [...] [place] | | | | | | [address] | | | | + + + [...] | | | | | performed at [facility], [address] | | | | | | [facility] | | | | | | [place] [address] | | | | + + + [...] | | | Fingerstick | performed at [facility] | | LAB | | | | [address];[place], [place] | | | | | | [address] | | | | + + + [...] K/uL | LAB | | | | [facility], [address] | | | | | | [place] | | | | | | [address] | | | | + + + + + + | RED CELL | 5.11 (H)Comment: Testing | 3.70 - 5.10 | EXTERNAL | | | COUNT | performed at [facility], [address] | M/uL | LAB | | | | [address], | | | | | | [place] [address] | | | | + + + + + + | Hgb | 15.8 (H)Comment: Testing | 11.3 - 15.5 | EXTERNAL | | | | performed at [facility], [address] | g/dL | LAB | | | | [address], | | | | | | [place] [address] | | | | + + + + + + | Hematocrit, | 46.6 (H)Comment: Testing | 34.0 - 46.0 % | EXTERNAL | | | POC | performed at [facility], [address] | | LAB | | | | [address], | | | | | | [place] [address] | | | | + + + + + + | MCV | 91.3Comment: Testing | 80.0 - 100.0 fl | EXTERNAL | | | | performed at [facility], [address] | | LAB | | | | [address], | | | | | | [place] [address] | | | | + + + + + + | MCH | 30.9Comment: Testing | 27.0 - 34.0 pg | EXTERNAL | | | | performed at [facility], [address] | | LAB | | | | [address], | | | | | | [place] [address] | | | | + + + + + + | MCHC | 33.9Comment: Testing | 32.0 - 35.5 | EXTERNAL | | | | performed at [facility], [address] | g/dL | LAB | | | | [address], | | | | | | [place] [address] | | | | + + + + + + | RDW-CV | 41.1Comment: Testing | 37 - 53 fl | EXTERNAL | | | | performed at [facility], [address] | | LAB | | | | [address], | | | | | | [place] [address] | | | | + + + + + + | Platelet | 319Comment: Testing | 150 - 400 K/uL | EXTERNAL | | | Count | performed at [facility], [address] | | LAB | | | Plasma | [address], | | | | | | [place] [address] | | | | + + + + + + | MPV | 8.3Comment: Testing | fl | EXTERNAL | | | | performed at [facility], [address] | | LAB | | | | [address], | | | | | | [place] [address] | | | | + + + + + + | Differentia | AUTOMATEDComment: | | EXTERNAL | | | l Type | Testing performed at | | LAB | | | | [facility], [address] | | | | | | [place] | | | | | | [address] | | | | + + + + + + | % Segmented | 60.06Comment: Testing | % | EXTERNAL | | | | performed at [facility], [address] | | LAB | | | Neutrophils | [address], | | | | | | [place] [address] | | | | + + + + + + | % | 28.48Comment: Testing | % | EXTERNAL | | | Lymphocytes | performed at [facility], [address] | | LAB | | | | [address], | | | | | | [place] [address] | | | | + + + + + + | % Monocytes | 10.95Comment: Testing | % | EXTERNAL | | | | performed at [facility], [address] | | LAB | | | | [address], | | | | | | [place] [address] | | | | + + + + + + | % | 0.34Comment: Testing | % | EXTERNAL | | | Eosinophils | performed at [facility], [address] | | LAB | | | | [address], | | | | | | [place] [address] | | | | + + + + + + | % Basophils | 0.17Comment: Testing | % | EXTERNAL | | | | performed at [facility], [address] | | LAB | | | | [address], | | | | | | [place] [address] | | | | + + + + + + | Absolute | 6.65Comment: Testing | 1.90 - 7.40 | EXTERNAL | | | Segmented | performed at [facility], [address] | K/uL | LAB | | | Neutrophils | [address], | | | | | | [place] [address] | | | | + + + + + + | Absolute | 3.15Comment: Testing | 1.00 - 3.90 | EXTERNAL | | | Lymphocytes | performed at [facility], [address] | K/uL | LAB | | | | [address], | | | | | | [place] [address] | | | | + + + + + + | Absolute | 1.21 (H)Comment: Testing | 0.00 - 0.80 | EXTERNAL | | | Monocytes | performed at [facility], [address] | K/uL | LAB | | | | [address], | | | | | | [place] [address] | | | | + + + + + + | Absolute | 0.04Comment: Testing | 0.00 - 0.50 | EXTERNAL | | | Eosinophils | performed at [facility], [address] | K/uL | LAB | | | | [address], | | | | | | [place] [address] | | | | + + + + + + | Absolute | 0.02Comment: Testing | 0.00 - 0.10 | EXTERNAL | | | Basophils | performed at [facility], [address] | K/uL | LAB | | | | [address], | | | | | | [place] [address] | | | | + + + [...] EXTERNAL | | | | performed at [facility], [address] | | LAB | | | | [address], | | | | | | [place] [address] | | | | + + + [...] EXTERNAL | | | | performed at [facility];[address] | | LAB | | | | [address];[place] | | | | | | [address] | | | | + + + [...] | | | | | [place] [address] | | | | + + + + + + | K | 3.2 (L)Comment: Testing | 3.5 - 4.9 | EXTERNAL | | | | performed at [facility], [address] | mmol/L | LAB | | | | [address], | | | | | | [place] [address] | | | | + + + + + + | Cl | 102Comment: Testing | 99 - 109 mmol/L | EXTERNAL | | | | performed at [facility], [address] | | LAB | | | | [address], | | | | | | [place] [address] | | | | + + + + + + | CO2 | 28Comment: Testing | 23 - 32 mmol/L | EXTERNAL | | | | performed at [facility], [address] | | LAB | | | | [address], | | | | | | [place] [address] | | | | + + + + + + | Anion Gap | 12Comment: Testing | 5 - 20 mmol/L | EXTERNAL | | | | performed at [facility], [address] | | LAB | | | | [address], | | | | | | [place] [address] | | | | + + + + + + | Glucose, | 138 (H)Comment: Testing | 65 - 99 mg/dL | EXTERNAL | | | Fasting | performed at [facility], [address] | | LAB | | | | [address], | | | | | | [place] [address] | | | | + + + + + + | BUN | 13Comment: Testing | 8 - 25 mg/dL | EXTERNAL | | | | performed at [facility], [address] | | LAB | | | | [address], | | | | | | [place] [address] | | | | + + + + + + | Creatinine | 0.7Comment: Testing | 0.50 - 1.00 | EXTERNAL | | | | performed at [facility], [address] | mg/dL | LAB | | | | [address], | | | | | | [place] [address] | | | | + + + + + + | BUN/Creatin | 19Comment: Testing | | EXTERNAL | | | ine Ratio | performed at [facility], [address] | | LAB | | | | [address], | | | | | | [place] [address] | | | | + + + + + + | Calcium | 9.2Comment: Testing | 8.5 - 10.5 | EXTERNAL | | | | performed at [facility], [address] | mg/dL | LAB | | | | [address], | | | | | | [place] [address] | | | | + + + + + + | Protein, | 6.2 (L)Comment: Testing | 6.3 - 8.2 g/dL | EXTERNAL | | | Total | performed at [facility], [address] | | LAB | | | [address], | | | | | | [place] [address] | | | | + + + + + + | Albumin | 3.2 (L)Comment: Testing | 3.3 - 4.8 g/dL | EXTERNAL | | | | performed at [facility], [address] | | LAB | | | [address], | | | | | | [place] [address] | | | | + + + + + + | Globulin | 3.0Comment: Testing | 1.3 - 4.9 g/dL | EXTERNAL | | | | performed at [facility], [address] | | LAB | | | | [address], | | | | | | [place] [address] | | | | + + + + + + | A/G Ratio | 1.1Comment: Testing | 1.0 - 2.4 | EXTERNAL | | | | performed at [facility], [address] | | LAB | | | [address], | | | | | | [place] [address] | | | | + + + + + + | Bilirubin | 0.6Comment: Testing | 0.1 - 1.5 mg/dL | EXTERNAL | | | Total | performed at [facility], [address] | | LAB | | | | [address], | | | | | | [place] [address] | | | | + + + + + + | ALP, | 68Comment: Testing | 35 - 115 U/L | EXTERNAL | | | External | performed at [facility], [address] | | LAB | | | | [address], | | | | | | [place] [address] | | | | + + + + + + | AST | 13Comment: Testing | 10 - 45 U/L | EXTERNAL | | | | performed at [facility], [address] | | LAB | | | | [address], | | | | | | [place] [address] | | | | + + + + + + | ALT | 16Comment: Testing | 10 - 65 U/L | EXTERNAL | | | | performed at [facility], [address] | | LAB | | | | [address], | | | | | | [place] [address] | | | | + + + [...] [place], | | | | | | [place] [address] | | | | + + + [...] | | | Fingerstick | performed at [facility];[address] | | LAB | | | | [address];[place], [place] | | | | | | [address] | | | | + + + [...] EXTERNAL | | | | performed at [facility] | | LAB | | | | [address];[place] | | | | | | [address] | | | | + + + + + + | Clarity | CLEARComment: Testing | | EXTERNAL | | | | performed at [facility];[address] | | LAB | | | | [address];[place] | | | | | | [address] | | | | + + + + + + | Specific | 1.010Comment: Testing | 1.002 - 1.030 | EXTERNAL | | | [place] | performed at [facility];[address] | | LAB | | | | [address];[place] | | | | | | [address] | | | | + + + + + + | Leukocyte | NEGATIVEComment: Testing | | EXTERNAL | | | Esterase, | performed at [facility];[address] | | LAB | | | Urine | [address];[place] | | | | | | [address] | | | | + + + + + + | Nitrite, | NEGATIVEComment: Testing | | EXTERNAL | | | Urine | performed at [facility];[address] | | LAB | | | | [address];[place] | | | | | | [address] | | | | + + + + + + | Urobilinoge | NORMALComment: Testing | mg/dL | EXTERNAL | | | n, Urine | performed at [facility];[address] | | LAB | | | | [address];[place] | | | | | | [address] | | | | + + + + + + | Protein, | NEGATIVEComment: Testing | mg/dL | EXTERNAL | | | Urine | performed at [facility];[address] | | LAB | | | | [address];[place] | | | | | | [address] | | | | + + + + + + | pH, Urine | 6.0Comment: Testing | 5.0 - 8.0 | EXTERNAL | | | | performed at [facility];[address] | | LAB | | | | [address];[place] | | | | | | [address] | | | | + + + + + + | Blood, | SMALL (A)Comment: | | EXTERNAL | | | Urine | Testing performed at | | LAB | | | | [facility];[address];[place] [address] | | | | + + + + + + | Ketones | NEGATIVEComment: Testing | mg/dL | EXTERNAL | | | | performed at [facility];[address] | | LAB | | | | [address];[place] | | | | | | [address] | | | | + + + + + + | Bilirubin, | NEGATIVEComment: Testing | | EXTERNAL | | | Urine | performed at [facility];[address] | | LAB | | | | [address];[place] | | | | | | [address] | | | | + + + + + + | Glucose, | 50 (A)Comment: Testing | mg/dL | EXTERNAL | | | Urine | performed at [facility];[address] | | LAB | | | | [address];[place] | | | | | | [address] | | | | + + + + + + | WBC, UA | 0-2Comment: Testing | 0 - 5 /hpf | EXTERNAL | | | | performed at [facility];[address] | | LAB | | | | [address];[place] | | | | | | [address] | | | | + + + + + + | RBC, UA | 3-5Comment: Testing | 0 - 5 /hpf | EXTERNAL | | | | performed at [facility];[address] | | LAB | | | | [address];[place] | | | | | | [address] | | | | + + + + + + | Bacteria, | 1+ (A)Comment: Testing | | EXTERNAL | | | UA | performed at [facility];[address] | | LAB | | | | [address];[place] | | | | | | [address] | | | | + + + + + + | Epithelial | 15Comment: Testing | /lpf | EXTERNAL | | | Cells | performed at [facility];[address] | | LAB | | | | [address];[place], [place] | | | | | | [address] | | | | + + + [...] | | | Fingerstick | performed at [facility];[address] | | LAB | | | | [address];[place], [place] | | | | | | [address] | | | | + + + [...] | | | Fingerstick | performed at [facility];[address] | | LAB | | | | [address];[place], [place] | | | | | | [address] | | | | + + + [...] | | | Fingerstick | performed at [facility];[address] | | LAB | | | | [address];[place] | | | | | | [address] | | | | + + + [...] | | | | [facility], [address] [facility] | | | | | | [place] | | | | | | [address] | | | | + + + + + + | RED CELL | 5.55 (H)Comment: Testing | 3.70 - 5.10 | EXTERNAL | | | COUNT | performed at [facility], [address] | M/uL | LAB | | | | [address], | | | | | | [place] [address] | | | | + + + + + + | Hgb | 17.1 (H)Comment: Testing | 11.3 - 15.5 | EXTERNAL | | | | performed at [facility], [address] | g/dL | LAB | | | | [address], | | | | | | [place] [address] | | | | + + + + + + | Hematocrit, | 50.7 (H)Comment: Testing | 34.0 - 46.0 % | EXTERNAL | | | POC | performed at [facility], [address] | | LAB | | | | [address], | | | | | | [place] [address] | | | | + + + + + + | MCV | 91.3Comment: Testing | 80.0 - 100.0 fl | EXTERNAL | | | | performed at [facility], [address] | | LAB | | | | [address], | | | | | | [place] [address] | | | | + + + + + + | MCH | 30.7Comment: Testing | 27.0 - 34.0 pg | EXTERNAL | | | | performed at [facility], [address] | | LAB | | | | [address], | | | | | | [place] [address] | | | | + + + + + + | MCHC | 33.7Comment: Testing | 32.0 - 35.5 | EXTERNAL | | | | performed at [facility], [address] | g/dL | LAB | | | | [address], | | | | | | [place] [address] | | | | + + + + + + | RDW-CV | 41.6Comment: Testing | 37 - 53 fl | EXTERNAL | | | | performed at [facility], [address] | | LAB | | | | [address], | | | | | | [place] [address] | | | | + + + + + + | Platelet | 335Comment: Testing | 150 - 400 K/uL | EXTERNAL | | | Count | performed at [facility], [address] | | LAB | | | Plasma | [address], | | | | | | [place] [address] | | | | + + + + + + | MPV | 8.8Comment: Testing | fl | EXTERNAL | | | | performed at [facility], [address] | | LAB | | | | [address], | | | | | | [place] [address] | | | | + + + + + + | Differentia | AUTOMATEDComment: | | EXTERNAL | | | l Type | Testing performed at | | LAB | | | | [facility], [address] | | | | | | [place] | | | | | | [address] | | | | + + + + + + | % Segmented | 75.31Comment: Testing | % | EXTERNAL | | | | performed at [facility], [address] | | LAB | | | Neutrophils | [address], | | | | | | [place] [address] | | | | + + + + + + | % | 17.39Comment: Testing | % | EXTERNAL | | | Lymphocytes | performed at [facility], [address] | | LAB | | | | [address], | | | | | | [place] [address] | | | | + + + + + + | % Monocytes | 7.05Comment: Testing | % | EXTERNAL | | | | performed at [facility], [address] | | LAB | | | | [address], | | | | | | [place] [address] | | | | + + + + + + | % | 0.06Comment: Testing | % | EXTERNAL | | | Eosinophils | performed at [facility], [address] | | LAB | | | | [address], | | | | | | [place] [address] | | | | + + + + + + | % Basophils | 0.19Comment: Testing | % | EXTERNAL | | | | performed at [facility], [address] | | LAB | | | | [address], | | | | | | [place] [address] | | | | + + + + + + | Absolute | 10.82 (H)Comment: | 1.90 - 7.40 | EXTERNAL | | | Segmented | Testing performed at | [facility] | LAB | | | Neutrophils | [facility], [address] | | | | | | [place] | | | | | | [id number] | | | | + + + + + + | Absolute | 2.50Comment: Testing | 1.00 - 3.90 | EXTERNAL | | | Lymphocytes | performed at [facility], [address] | [facility] | LAB | | | | [address] [place], | | | | | | [place] [address] | | | | + + + + + + | Absolute | 1.01 (H)Comment: Testing | 0.00 - 0.80 | EXTERNAL | | | Monocytes | performed at [facility], [address] | [address] | LAB | | | | [address], | | | | | | [place] [address] | | | | + + + + + + | Absolute | 0.01Comment: Testing | 0.00 - 0.50 | EXTERNAL | | | Eosinophils | performed at [facility], [address] | [address] | LAB | | | | [address], | | | | | | [place] [address] | | | | + + + + + + | Absolute | 0.03Comment: Testing | 0.00 - 0.10 | EXTERNAL | | | Basophils | performed at [facility], [address] | [address] | LAB | | | | [address], | | | | | | [place] [address] | | | | + + + [...] EXTERNAL | | | | performed at [facility], [address] | | LAB | | | | [address], | | | | | | [place] [address] | | | | + + + [...] | | | | | [place] [address] | | | | + + + + + + | K | 3.0 (L)Comment: Testing | 3.5 - 4.9 | EXTERNAL | | | | performed at [facility], [address] | mmol/L | LAB | | | | [address], | | | | | | [place] [address] | | | | + + + + + + | Cl | 99Comment: Testing | 99 - 109 mmol/L | EXTERNAL | | | | performed at [facility], [address] | | LAB | | | | [address], | | | | | | [place] [address] | | | | + + + [...] | | | | | [place], [place] [address] | | | | + + + + + + | Glucose, | 172 (H)Comment: Testing | 65 - 99 mg/dL | EXTERNAL | | | Fasting | performed at [facility], [address] | | LAB | | | | [address], | | | | | | [place], [place] [address] | | | | + + + + + + | BUN | 12Comment: Testing | 8 - 25 mg/dL | EXTERNAL | | | | performed at [facility], [address] | | LAB | | | | [address], | | | | | | [place] [address] | | | | + + + + + + | Creatinine | 0.6Comment: Testing | 0.50 - 1.00 | EXTERNAL | | | | performed at [facility], [address] | mg/dL | LAB | | | | [address], | | | | | | [place] [address] | | | | + + + + + + | BUN/Creatin | 20Comment: Testing | | EXTERNAL | | | ine Ratio | performed at [facility], [address] | | LAB | | | | [address], | | | | | | [place] [address] | | | | + + + + + + | Calcium | 9.5Comment: Testing | 8.5 - 10.5 | EXTERNAL | | | | performed at [facility], [address] | mg/dL | LAB | | | | [address], | | | | | | [place] [address] | | | | + + + + + + | Protein, | 6.7Comment: Testing | 6.3 - 8.2 g/dL | EXTERNAL | | | Total | performed at [facility], [address] | | LAB | | | | [address], | | | | | | [place] [address] | | | | + + + + + + | Albumin | 3.3Comment: Testing | 3.3 - 4.8 g/dL | EXTERNAL | | | | performed at [facility], [address] | | LAB | | | | [address], | | | | | | [place] [address] | | | | + + + + + + | Globulin | 3.4Comment: Testing | 1.3 - 4.9 g/dL | EXTERNAL | | | | performed at [facility], [address] | | LAB | | | | [address], | | | | | | [place] [address] | | | | + + + + + + | A/G Ratio | 1.0Comment: Testing | 1.0 - 2.4 | EXTERNAL | | | | performed at [facility], [address] | | LAB | | | | [address], | | | | | | [place] [address] | | | | + + + + + + | Bilirubin | 0.5Comment: Testing | 0.1 - 1.5 mg/dL | EXTERNAL | | | Total | performed at [facility], [address] | | LAB | | | | [address], | | | | | | [place] [address] | | | | + + + + + + | ALP, | 80Comment: Testing | 35 - 115 U/L | EXTERNAL | | | External | performed at [facility], [address] | | LAB | | | | [address], | | | | | | [place] [address] | | | | + + + + + + | AST | 11Comment: Testing | 10 - 45 U/L | EXTERNAL | | | | performed at [facility], [address] | | LAB | | | | [address], | | | | | | [place] [address] | | | | + + + + + + | ALT | 14Comment: Testing | 10 - 65 U/L | EXTERNAL | | | | performed at [facility], [address] | | LAB | | | | [facility], | | | | | | [place] [address] | | | | + + + [...] | | | | | | at [facility], [address] | | | | | | [facility], | | | | | | [place] [address] | | | | + + + [...] | | | Fingerstick | performed at [facility];[address] | | LAB | | | | [address];[place] | | | | | | [address] | | | | + + + [...] LAB | | | | performed at [facility];[address] | | | | | | [address];[place] | | | | | | [address] | | | | + + + [...] | | | Fingerstick | performed at [facility];[address] | | LAB | | | | [address];[place] | | | | | | [address] | | | | + + + [...] | | | Fingerstick | performed at [facility];[address] | | LAB | | | | [address];[place] | | | | | | [address] | | | | + + + [...] | | | REVIEWED | performed at [facility] | | LAB | | | | [address];[place] | | | | | | [address] | | | | + + + [...] | | | | | performed at [facility], [address] | | | | | | [facility] | | | | | | [place] [address] | | | | + + + [...] | | | Fingerstick | performed at [facility];[address] | | LAB | | | | [address];[place], [place] | | | | | | [address] | | | | + + + [...] LAB | | | | [facility], [address] [facility] | | | | | | [address], [place], [place] | | | | | | [address] | | | | + + + + + + | RED CELL | 5.68 (H)Comment: Testing | 3.70 - 5.10 | EXTERNAL | | | COUNT | performed at [facility], [address] | [address] | LAB | | | | [address], | | | | | | [place] [address] | | | | + + + + + + | Hgb | 17.2 (H)Comment: Testing | 11.3 - 15.5 | EXTERNAL | | | | performed at [facility], [address] | g/dL | LAB | | | | [address], | | | | | | [place] [address] | | | | + + + + + + | Hematocrit, | 52.1 (H)Comment: Testing | 34.0 - 46.0 % | EXTERNAL | | | POC | performed at [facility], [address] | | LAB | | | | [address], | | | | | | [place] [address] | | | | + + + + + + | MCV | 91.9Comment: Testing | 80.0 - 100.0 fl | EXTERNAL | | | | performed at [facility], [address] | | LAB | | | | [address], | | | | | | [place] [address] | | | | + + + + + + | MCH | 30.3Comment: Testing | 27.0 - 34.0 pg | EXTERNAL | | | | performed at [facility], [address] | | LAB | | | [address], | | | | | | [place] [address] | | | | + + + + + + | MCHC | 33.0Comment: Testing | 32.0 - 35.5 | EXTERNAL | | | | performed at [facility], [address] | g/dL | LAB | | | [address], | | | | | | [place] [address] | | | | + + + + + + | RDW-CV | 42.0Comment: Testing | 37 - 53 fl | EXTERNAL | | | | performed at [facility], [address] | | LAB | | | | [address], | | | | | | [place] [address] | | | | + + + + + + | Platelet | 357Comment: Testing | 150 - 400 K/uL | EXTERNAL | | | Count | performed at [facility], [address] | | LAB | | | Plasma | [address], | | | | | | [place] [address] | | | | + + + + + + | MPV | 8.9Comment: Testing | fl | EXTERNAL | | | | performed at [facility], [address] | | LAB | | | | [address], | | | | | | [place] [address] | | | | + + + + + + | Differentia | AUTOMATEDComment: | | EXTERNAL | | | l Type | Testing performed at | | LAB | | | | [facility], [address] | | | | | | [place] | | | | | | [address] | | | | + + + + + + | % Segmented | 83.31Comment: Testing | % | EXTERNAL | | | | performed at [facility], [address] | | LAB | | | Neutrophils | [address], | | | | | | [place] [address] | | | | + + + + + + | % | 10.09Comment: Testing | % | EXTERNAL | | | Lymphocytes | performed at [facility], [address] | | LAB | | | | [address], | | | | | | [place] [address] | | | | + + + + + + | % Monocytes | 6.44Comment: Testing | % | EXTERNAL | | | | performed at [facility], [address] | | LAB | | | | [address], | | | | | | [place] [address] | | | | + + + + + + | % | 0.03Comment: Testing | % | EXTERNAL | | | Eosinophils | performed at [facility], [address] | | LAB | | | | [address], | | | | | | [place] [address] | | | | + + + + + + | % Basophils | 0.13Comment: Testing | % | EXTERNAL | | | | performed at [facility], [address] | | LAB | | | | [address], | | | | | | [place] [address] | | | | + + + + + + | Absolute | 16.01 (H)Comment: | 1.90 - 7.40 | EXTERNAL | | | Segmented | Testing performed at | K/uL | LAB | | | Neutrophils | [facility], [address] | | | | | | [place] | | | | | | [address] | | | | + + + + + + | Absolute | 1.94Comment: Testing | 1.00 - 3.90 | EXTERNAL | | | Lymphocytes | performed at [facility], [address] | K/uL | LAB | | | | [address], | | | | | | [place] [address] | | | | + + + + + + | Absolute | 1.24 (H)Comment: Testing | 0.00 - 0.80 | EXTERNAL | | | Monocytes | performed at [facility], [address] | [address] | LAB | | | | [address], | | | | | | [place] [address] | | | | + + + + + + | Absolute | 0.01Comment: Testing | 0.00 - 0.50 | EXTERNAL | | | Eosinophils | performed at [facility], [address] | [address] | LAB | | | | [address], | | | | | | [place] [address] | | | | + + + + + + | Absolute | 0.03Comment: Testing | 0.00 - 0.10 | EXTERNAL | | | Basophils | performed at [facility], [address] | K[address] | LAB | | | | [address], | | | | | | [place] [address] | | | | + + + [...] | | | (REF) | performed at [facility], [address] | | LAB | | | | [address], | | | | | | [place] [address] | | | | + + + [...] EXTERNAL | | | | performed at [facility], [address] | | LAB | | | | [address], | | | | | | [place] [address] | | | | + + [...] EXTERNAL | | | | performed at [facility], [address] | | LAB | | | | [address], | | | | | | [place] [address] | | | | + + + [...] | | | | | [place] [address] | | | | + + + + + + | K | 3.4 (L)Comment: Testing | 3.5 - 4.9 | EXTERNAL | | | | performed at [facility], [address] | mmol/L | LAB | | | | [address], | | | | | | [place] [address] | | | | + + + + + + | Cl | 101Comment: Testing | 99 - 109 mmol/L | EXTERNAL | | | | performed at [facility], [address] | | LAB | | | | [address], | | | | | | [place] [address] | | | | + + + + + + | CO2 | 24Comment: Testing | 23 - 32 mmol/L | EXTERNAL | | | | performed at [facility], [address] | | LAB | | | | [address], | | | | | | [place] [address] | | | | + + + + + + | Anion Gap | 16Comment: Testing | 5 - 20 mmol/L | EXTERNAL | | | | performed at [facility], [address] | | LAB | | | | [address], | | | | | | [place] [address] | | | | + + + + + + | Glucose, | 204 (H)Comment: Testing | 65 - 99 mg/dL | EXTERNAL | | | Fasting | performed at [facility], [address] | | LAB | | | | [address], | | | | | | [place] [address] | | | | + + + + + + | BUN | 13Comment: Testing | 8 - 25 mg/dL | EXTERNAL | | | | performed at [facility], [address] | | LAB | | | | [address], | | | | | | [place] [address] | | | | + + + + + + | Creatinine | 0.6Comment: Testing | 0.50 - 1.00 | EXTERNAL | | | | performed at [facility], [address] | mg/dL | LAB | | | | [address], | | | | | | [place] [address] | | | | + + + + + + | BUN/Creatin | 22Comment: Testing | | EXTERNAL | | | ine Ratio | performed at [facility], [address] | | LAB | | | | [address], | | | | | | [place] [address] | | | | + + + + + + | Calcium | 9.7Comment: Testing | 8.5 - 10.5 | EXTERNAL | | | | performed at [facility], [address] | mg/dL | LAB | | | | [address], | | | | | | [place] [address] | | | | + + + + + + | Protein, | 7.5Comment: Testing | 6.3 - 8.2 g/dL | EXTERNAL | | | Total | performed at [facility], [address] | | LAB | | | | [address], | | | | | | [place] [address] | | | | + + + + + + | Albumin | 3.7Comment: Testing | 3.3 - 4.8 g/dL | EXTERNAL | | | | performed at [facility], [address] | | LAB | | | | [address], | | | | | | [place] [address] | | | | + + + + + + | Globulin | 3.8Comment: Testing | 1.3 - 4.9 g/dL | EXTERNAL | | | | performed at [facility], [address] | | LAB | | | | [address], | | | | | | [place] [address] | | | | + + + + + + | A/G Ratio | 1.0Comment: Testing | 1.0 - 2.4 | EXTERNAL | | | | performed at [facility], [address] | | LAB | | | | [address], | | | | | | [place], [place] [address] | | | | + + + + + + | Bilirubin | 0.5Comment: Testing | 0.1 - 1.5 mg/dL | EXTERNAL | | | Total | performed at [facility], [address] | | LAB | | | | [address], | | | | | | [place] [address] | | | | + + + + + + | ALP, | 87Comment: Testing | 35 - 115 U/L | EXTERNAL | | | External | performed at [facility], [address] | | LAB | | | | [address], | | | | | | [place] [address] | | | | + + + + + + | AST | 14Comment: Testing | 10 - 45 U/L | EXTERNAL | | | | performed at [facility], [address] | | LAB | | | | [address], | | | | | | [place] [address] | | | | + + + + + + | ALT | 23Comment: Testing | 10 - 65 U/L | EXTERNAL | | | | performed at [facility], [address] | | LAB | | | | [facility], | | | | | | [place] [address] | | | | + + + [...] | | | | | | at [facility], [address] | | | | | | [employer], | | | | | | [place] [address] | | | | + + + [...] | | | Fingerstick | performed at [facility];[address] | | LAB | | | | [address];[place], [place] | | | | | | [address] | | | | + + + [...] EXTERNAL | | | | performed at [facility];[address] | | LAB | | | | [address];[place], [place] | | | | | | [address] | | | | + + + [...] | | | | | | ACUTE MS Testing | | | | | | performed at [facility];[address] | | | | | | [address];[place], [place] | | | | | | [address] | | | | + + + [...] EXTERNAL | | | | performed at [facility] | | LAB | | | | [address];[place], [place] | | | | | | [address] | | | | + + + [...] | | | Fingerstick | performed at [facility];[address] | | LAB | | | | [address];[place], [place] | | | | | | [address] | | | | + + + [...] TV A Clark: 0.91 m/s TV Dec Dodge: 4.46 m/s2 TV Dec | | | Time: 129.57 ms TV E Clark: 0.57 m/s TV E/A Ratio: 0.63 | | | Children'S Minister: CABRERA Authenticated by: Corrine Mendez MD Report [...] (A-L): | | 15.26 ml/m2LAAs A2C: 11.59 [id number] A-L A2C: 27.05 mlLALs A2C: 4.22 cmLAAs A4C: | | 10.97 [id number] A-L A4C: 27.00 mlLALs A4C: 3.78 cmTAPSE: 2.65 cmIVC diameter: | | 1.44 cmIVC collapse: 0.69 cmIVC % collapse: 50.47 %HR: 94.75 BPMAV maxP.76 | | mmHgAV meanP.21 mmHgAV Vmax: 1.71 m/Damián Vmean: 1.29 m/Damián VTI: 36.39 cmAVA | | Vmax: 2.57 cm2AVA (VTI): 2.46 um8TACW Vmax: 0.00 cm2/m2AVAI (VTI): 0.00 | | cm2/m2LVCI Dopp: 4.52 l/jncb7YDSV Dopp: 8.45 l/minHR: 94.23 BPMLVOT maxP.94 | [...] 0.15 m/sTV A Clark: 0.91 m/sTV Dec Dodge: 4.46 m/s2TV Dec Time: 129.57 msTV E Clark: | | 0.57 m/sTV E/A Ratio: 0.63 Children'S Minister: TIFFANIWAuthenticated by: Corrine Mendez | | MDReport [...] A Clark: 0.91 m/s | |TV Dec Dodge: 4.46 m/s2 | |TV Dec Time: 129.57 ms | |TV E Clark: 0.57 m/s | |TV E/A Ratio: 0.63 | | | |Children'S Minister: KVW | |Authenticated by: Corrine Mendez MD [...] EXTERNAL | | | | performed at [facility];[address] | | LAB | | | | [address];[place], [place] | | | | | | [address] | | | | + + + [...] | | | | | | ACUTE MS Testing | | | | | | performed at [facility];[address] | | | | | | [facility];[place], [place] | | | | | | [address] | | | | + + + [...] EXTERNAL | | | | performed at [facility];[address] | | LAB | | | | [facility];[place], [place] | | | | | | [address] | | | | + + + [...] | | | Fingerstick | performed at [facility];[address] | | LAB | | | | [address];[place], [place] | | | | | | [address] | | | | + + + [...] EXTERNAL | | | | performed at [facility];[address] | | LAB | | | | [address];[place], [place] | | | | | | [address] | | | | + + + [...] | | | | | | ACUTE MS Testing | | | | | | performed at [facility];[address] | | | | | | [facility];[place], [place] | | | | | | [address] | | | | + + + [...] EXTERNAL | | | | performed at [facility];[address] | | LAB | | | | [address];[place], [place] | | | | | | [address] | | | | + + + [...] | | | Fingerstick | performed at [facility];[address] | | LAB | | | | [address];[place] | | | | | | [address] | | | | + + + [...] | | | | [facility], [address] [facility] | | | | | | [place] | | | | | | [address] | | | | + + + + + + | RED CELL | 5.43 (H)Comment: Testing | 3.70 - 5.10 | EXTERNAL | | | COUNT | performed at [facility], [address] | [address] | LAB | | | | [address], | | | | | | [place] [address] | | | | + + + + + + | Hgb | 16.9 (H)Comment: Testing | 11.3 - 15.5 | EXTERNAL | | | | performed at [facility], [address] | g/dL | LAB | | | | [address], | | | | | | [place] [address] | | | | + + + + + + | Hematocrit, | 50.2 (H)Comment: Testing | 34.0 - 46.0 % | EXTERNAL | | | POC | performed at [facility], [address] | | LAB | | | | [address], | | | | | | [place] [address] | | | | + + + + + + | MCV | 92.5Comment: Testing | 80.0 - 100.0 fl | EXTERNAL | | | | performed at [facility], [address] | | LAB | | | | [address], | | | | | | [place] [address] | | | | + + + + + + | MCH | 31.0Comment: Testing | 27.0 - 34.0 pg | EXTERNAL | | | | performed at [facility], [address] | | LAB | | | | [address], | | | | | | [place] [address] | | | | + + + + + + | MCHC | 33.6Comment: Testing | 32.0 - 35.5 | EXTERNAL | | | | performed at [facility], [address] | g/dL | LAB | | | | [address], | | | | | | [place] [address] | | | | + + + + + + | RDW-CV | 42.0Comment: Testing | 37 - 53 fl | EXTERNAL | | | | performed at [facility], [address] | | LAB | | | | [address], | | | | | | [place] [address] | | | | + + + + + + | Platelet | 327Comment: Testing | 150 - 400 K/uL | EXTERNAL | | | Count | performed at [facility], [address] | | LAB | | | Plasma | [address], | | | | | | [place] [address] | | | | + + + + + + | MPV | 8.9Comment: Testing | fl | EXTERNAL | | | | performed at [facility], [address] | | LAB | | | | [address], | | | | | | [place] [address] | | | | + + + + + + | Differentia | MANUALComment: Testing | | EXTERNAL | | | l Type | performed at [facility], [address] | | LAB | | | | [address], | | | | | | [place] [address] | | | | + + + + + + | Segmented | 93Comment: Testing | % | EXTERNAL | | | Neutrophils | performed at [facility], [address] | | LAB | | | Manual | [address], | | | | | | [place] [address] | | | | + + + + + + | % Bands | 2Comment: Testing | % | EXTERNAL | | | | performed at [facility], [address] | | LAB | | | | [address], | | | | | | [place] [address] | | | | + + + + + + | Lymphocytes | 4Comment: Testing | % | EXTERNAL | | | Manual | performed at [facility], [address] | | LAB | | | | [address], | | | | | | [place] [address] | | | | + + + + + + | Monocytes | 1Comment: Testing | % | EXTERNAL | | | Manual | performed at [facility], [address] | | LAB | | | | [address], | | | | | | [place] [address] | | | | + + + + + + | Absolute | 17.18 (H)Comment: | 1.90 - 7.40 | EXTERNAL | | | Neutrophils | Testing performed at | K/uL | LAB | | | | [facility], [address] [facility] | | | | | | [place] | | | | | | [address] | | | | + + + + + + | Bands | 0.37 (H)Comment: Testing | 0.00 - 0.20 | EXTERNAL | | | Manual | performed at [facility], [address] | K[address] | LAB | | | | [address], | | | | | | [place] [address] | | | | + + + + + + | Absolute | 0.74 (L)Comment: Testing | 1.00 - 3.90 | EXTERNAL | | | Lymphocytes | performed at [facility], [address] | [address] | LAB | | | | [address], | | | | | | [place] [address] | | | | + + + + + + | Absolute | 0.18Comment: Testing | 0.00 - 0.80 | EXTERNAL | | | Monocytes | performed at [facility], [address] | K[address] | LAB | | | | [address], | | | | | | [place] [address] | | | | + + + + + + | RBC | RBC AND PLT MORPHOLOGY | | EXTERNAL | | | Morphology | APPEAR NORMALComment: | | LAB | | | | Testing performed at | | | | | | [facility], [address] | | | | | | [place] | | | | | | [address] | | | | + + + [...] EXTERNAL | | | | performed at [facility], [address] | uIU/mL | LAB | | | | [address], | | | | | | [place] [address] | | | | + + + [...] | | | | | performed at [facility], [address] | | | | | | [address], | | | | | | [place] [address] | | | | + + + [...] | | | | | [place] [address] | | | | + + + [...] | EXTERNAL | | | A1c | [place] [employer] [facility] | | LAB | | | [...] | | | | | performed at [facility], [address] | | | | | | [address] | | | | | | [place] [address] | | | | + + + [...] | | | | | performed at [facility], [address] | | | | | | [address] | | | | | | [place] [address] | | | | + + + [...] | | | | | [place] [address] | | | | + + + + + + | Triglycerid | 108Comment: SPECIMEN | mg/dL | EXTERNAL | | | es | SLIGHTLY | | LAB | | | | HEMOLYZEDTesting | | | | | | performed at [facility], [address] | | | | | | [address], | | | | | | [place] [address] | | | | + + + + + + | HDL | 90Comment: Testing | mg/dL | EXTERNAL | | | | performed at [facility], [address] | | LAB | | | | [address], | | | | | | [place] [address] | | | | + + + + + + | LDL | 103 (H)Comment: Testing | mg/dL | EXTERNAL | | | Cholesterol | performed at [facility], [address] | | LAB | | | , | [address], | | | | | Calculated, | [place] [address] | | | | | External | [...] | | | | | [place] [address] | | | | + + + + + + | K | 3.7Comment: SPECIMEN | 3.5 - 4.9 | EXTERNAL | | | | SLIGHTLY | mmol/L | LAB | | | | HEMOLYZEDTesting | | | | | | performed at [facility], [address] | | | | | | [address], | | | | | | [place] [id number] | | | | + + + + + + | Cl | 103Comment: Testing | 99 - 109 mmol/L | EXTERNAL | | | | performed at [facility], [address] | | LAB | | | | [address], | | | | | | [place] [address] | | | | + + + + + + | CO2 | 23Comment: Testing | 23 - 32 mmol/L | EXTERNAL | | | | performed at [facility], [address] | | LAB | | | | [address], | | | | | | [place] [address] | | | | + + + + + + | Anion Gap | 16Comment: Testing | 5 - 20 mmol/L | EXTERNAL | | | | performed at [facility], [address] | | LAB | | | | [address], | | | | | | [place] [address] | | | | + + + [...] | | | | | [place] [address] | | | | + + + + + + | BUN | 12Comment: Testing | 8 - 25 mg/dL | EXTERNAL | | | | performed at [facility], [address] | | LAB | | | | [address], | | | | | | [place] [address] | | | | + + + + + + | Creatinine | 0.8Comment: SPECIMEN | 0.50 - 1.00 | EXTERNAL | | | | SLIGHTLY | mg/dL | LAB | | | | HEMOLYZEDTesting | | | | | | performed at [facility], [address] | | | | | | [address], | | | | | | [place] [address] | | | | + + + + + + | BUN/Creatin | 15Comment: Testing | | EXTERNAL | | | ine Ratio | performed at [facility], [address] | | LAB | | | | [address], | | | | | | [place] [address] | | | | + + + + + + | Calcium | 9.6Comment: Testing | 8.5 - 10.5 | EXTERNAL | | | | performed at [facility], [address] | mg/dL | LAB | | | | [address], | | | | | | [place] [address] | | | | + + + + + + | Protein, | 8.1Comment: Testing | 6.3 - 8.2 g/dL | EXTERNAL | | | Total | performed at [facility], [address] | | LAB | | | | [address], | | | | | | [place] [address] | | | | + + + + + + | Albumin | 4.2Comment: Testing | 3.3 - 4.8 g/dL | EXTERNAL | | | | performed at [facility], [address] | | LAB | | | | [address], | | | | | | [place] [address] | | | | + + + + + + | Globulin | 3.9Comment: Testing | 1.3 - 4.9 g/dL | EXTERNAL | | | | performed at [facility], [address] | | LAB | | | | [address], | | | | | | [place] [address] | | | | + + + + + + | A/G Ratio | 1.1Comment: Testing | 1.0 - 2.4 | EXTERNAL | | | | performed at [facility], [address] | | LAB | | | | [address], | | | | | | [place] [address] | | | | + + + + + + | Bilirubin | 0.4Comment: SPECIMEN | 0.1 - 1.5 mg/dL | EXTERNAL | | | Total | SLIGHTLY | | LAB | | | | HEMOLYZEDTesting | | | | | | performed at [facility], [address] | | | | | | [address], | | | | | | [place] [address] | | | | + + + + + + | ALP, | 95Comment: Testing | 35 - 115 U/L | EXTERNAL | | | External | performed at [facility], [address] | | LAB | | | | [address], | | | | | | [place] [address] | | | | + + + + + + | AST | 13Comment: SPECIMEN | 10 - 45 U/L | EXTERNAL | | | | SLIGHTLY | | LAB | | | | HEMOLYZEDTesting | | | | | | performed at [facility], [address] | | | | | | [address], | | | | | | [place] [address] | | | | + + + + + + | ALT | 20Comment: SPECIMEN | 10 - 65 U/L | EXTERNAL | | | | SLIGHTLY | | LAB | | | | HEMOLYZEDTesting | | | | | | performed at [facility], [address] | | | | | | [address], | | | | | | [place] [address] | | | | + + + [...] | | | | | | at [facility] NETWORK, [address] | | | | | Bekah Berto, | | | | | | [place] [address] | | | | + + + [...] | | | | | performed at [facility];[address] | | | | | | [facility];[place], [place] | | | | | | [address] | | | | + + + [...] EXTERNAL | | | | performed at [facility];[address] | | LAB | | | | [address];[place] | | | | | | [address] | | | | + + + + + + | Clarity | CLEARComment: Testing | | EXTERNAL | | | | performed at [facility];[address] | | LAB | | | | [address];[place] | | | | | | [address] | | | | + + + + + + | Specific | 1.033 (H)Comment: | 1.002 - 1.030 | EXTERNAL | | | [place] | Testing performed at | | LAB | | | | [facility];[address] | [address];[place] [address] | | | | + + + + + + | Leukocyte | NEGATIVEComment: Testing | | EXTERNAL | | | Esterase, | performed at [facility];[address] | | LAB | | | Urine | [address];[place] | | | | | | [address] | | | | + + + + + + | Nitrite, | NEGATIVEComment: Testing | | EXTERNAL | | | Urine | performed at [facility];[address] | | LAB | | | | [address];[place] | | | | | | [address] | | | | + + + + + + | Urobilinoge | NORMALComment: Testing | mg/dL | EXTERNAL | | | n, Urine | performed at [facility];[address] | | LAB | | | | [address];[place] | | | | | | [address] | | | | + + + + + + | Protein, | 100 (A)Comment: Testing | mg/dL | EXTERNAL | | | Urine | performed at [facility];[address] | | LAB | | | | [address];[place] | | | | | | [address] | | | | + + + + + + | pH, Urine | 6.0Comment: Testing | 5.0 - 8.0 | EXTERNAL | | | | performed at [facility];[address] | | LAB | | | | [address];[place] | | | | | | [address] | | | | + + + + + + | Blood, | SMALL (A)Comment: | | EXTERNAL | | | Urine | Testing performed at | | LAB | | | | [facility];[address];[place] [address] | | | | + + + + + + | Ketones | TRACE (A)Comment: | mg/dL | EXTERNAL | | | | Testing performed at | | LAB | | | | [facility];[address];[place] [address] | | | | + + + + + + | Bilirubin, | NEGATIVEComment: Testing | | EXTERNAL | | | Urine | performed at [facility];[address] | | LAB | | | | [address];[place] | | | | | | [address] | | | | + + + + + + | Glucose, | >500 (A)Comment: Testing | mg/dL | EXTERNAL | | | Urine | performed at [facility];[address] | | LAB | | | | [address];[place] | | | | | | [address] | | | | + + + + + + | WBC, UA | 0-2Comment: Testing | 0 - 5 /hpf | EXTERNAL | | | | performed at [facility];[address] | | LAB | | | | [address];[place] | | | | | | [address] | | | | + + + + + + | RBC, UA | 6-10Comment: Testing | 0 - 5 /hpf | EXTERNAL | | | | performed at [facility];[address] | | LAB | | | | [address];[place] | | | | | | [address] | | | | + + + + + + | Bacteria, | NONE SEENComment: | | EXTERNAL | | | UA | Testing performed at | | LAB | | | | [facility];[address];[place] [address] | | | | + + + + + + | Epithelial | 16-25Comment: Testing | /lpf | EXTERNAL | | | Cells | performed at [facility];[address] | | LAB | | | | [address];[place] | | | | | | [address] | | | | + + + [...] 2:47AM Referring Provider Line: | | | [phone] ID: [id number] | | + + + [...] | | 2015 2:47AM Referring Provider Line: [phone] ID: [id number] | | | |Bones: No [...] on Mar 05 2016 2:47AM Referring Provider Enma e: [phone] ID: [id number] | + + CT Abdomen [...] 1:22AM Referring Provider Line: | | | [phone] ID: [id number] | | + + + [...] 2016 1:22AM Referring Provider Line: | | [phone] ID: [id number] | |Pancreas: Normal. | | [...] 05 2016 1:22AM Referring Provider Arlet ne: [phone] ID: [id number] | + + Troponin I [...] | | | | | | ACUTE MS Testing | | | | | | performed at [facility];[address] | | | | | | [address];[place] | | | | | | [address] | | | | + + + [...] Electronically | | | signed by Kelvin Hopson MD on Mar 04 2016 9:59PM Referring Provider | | | Line: [phone] ID: [id number] | | + + + [...] Mar 04 2016 9:59PM Referring Provider Line: [phone] ID: [id number] | |COMPARISON: Date 02/29/2016. | [...] Mar 04 2016 9:59PM Referring Provider Line: [phone] ID: [id number] | + + HISTORICAL LAB [...] K/uL | LAB | | | | [facility];[address];[place] [address] | | | | + + + + + + | RED CELL | 5.59 (H)Comment: Testing | 3.70 - 5.10 | EXTERNAL | | | COUNT | performed at [facility];[address] | M/uL | LAB | | | | [address];[place] | | | | | | [address] | | | | + + + + + + | Hgb | 17.6 (H)Comment: Testing | 11.3 - 15.5 | EXTERNAL | | | | performed at [facility];888 | g/dL | LAB | | | | [address];[place] | | | | | | [address] | | | | + + + + + + | Hematocrit, | 51.1 (H)Comment: Testing | 34.0 - 46.0 % | EXTERNAL | | | POC | performed at [facility];[address] | | LAB | | | | [address];[place] | | | | | | [address] | | | | + + + + + + | MCV | 91.4Comment: Testing | 80.0 - 100.0 fl | EXTERNAL | | | | performed at [facility];[address] | | LAB | | | | [address];[place] | | | | | | [address] | | | | + + + + + + | MCH | 31.5Comment: Testing | 27.0 - 34.0 pg | EXTERNAL | | | | performed at [facility];[address] | | LAB | | | | [address];[place] | | | | | | [address] | | | | + + + + + + | MCHC | 34.5Comment: Testing | 32.0 - 35.5 | EXTERNAL | | | | performed at [facility];[address] | g/dL | LAB | | | | [address];[place] | | | | | | [address] | | | | + + + + + + | RDW-CV | 41.6Comment: Testing | 37 - 53 fl | EXTERNAL | | | | performed at [facility];[address] | | LAB | | | | [address];[place] | | | | | | [address] | | | | + + + + + + | Platelet | 359Comment: Testing | 150 - 400 K/uL | EXTERNAL | | | Count | performed at [facility];[address] | | LAB | | | Plasma | [address];[place] | | | | | | [address] | | | | + + + + + + | MPV | 8.4Comment: Testing | fl | EXTERNAL | | | | performed at [facility];[address] | | LAB | | | | [address];[place] | | | | | | [address] | | | | + + + + + + | Differentia | AUTOMATEDComment: | | EXTERNAL | | | l Type | Testing performed at | | LAB | | | | [facility];[address];[place] [address] | | | | + + + + + + | % Segmented | 87.39Comment: Testing | % | EXTERNAL | | | | performed at [facility];[address] | | LAB | | | Neutrophils | [address];[place] | | | | | | [address] | | | | + + + + + + | % | 9.30Comment: Testing | % | EXTERNAL | | | Lymphocytes | performed at [facility];[address] | | LAB | | | | [address];[place] | | | | | | [address] | | | | + + + + + + | % Monocytes | 2.16Comment: Testing | % | EXTERNAL | | | | performed at [facility];[address] | | LAB | | | | [address];[place] | | | | | | [address] | | | | + + + + + + | % | 0.54Comment: Testing | % | EXTERNAL | | | Eosinophils | performed at [facility];[address] | | LAB | | | | [address];[place] | | | | | | [address] | | | | + + + + + + | % Basophils | 0.61Comment: Testing | % | EXTERNAL | | | | performed at [facility];[address] | | LAB | | | | [address];[place] | | | | | | [address] | | | | + + + + + + | Absolute | 12.39 (H)Comment: | 1.90 - 7.40 | EXTERNAL | | | Segmented | Testing performed at | K/uL | LAB | | | Neutrophils | [facility];[address];[place] [address] | | | | + + + + + + | Absolute | 1.32Comment: Testing | 1.00 - 3.90 | EXTERNAL | | | Lymphocytes | performed at [facility];[address] | K/uL | LAB | | | | [address];[place] | | | | | | [address] | | | | + + + + + + | Absolute | 0.31Comment: Testing | 0.00 - 0.80 | EXTERNAL | | | Monocytes | performed at [facility];[address] | K/uL | LAB | | | | [address];[place] | | | | | | [address] | | | | + + + + + + | Absolute | 0.08Comment: Testing | 0.00 - 0.50 | EXTERNAL | | | Eosinophils | performed at [facility];[address] | K/uL | LAB | | | | [address];[place] | | | | | | [address] | | | | + + + + + + | Absolute | 0.09Comment: Testing | 0.00 - 0.10 | EXTERNAL | | | Basophils | performed at [facility];[address] | K/uL | LAB | | | | [address];[place] | | | | | | [address] | | | | + + + + + + | RBC | RBC AND PLT MORPHOLOGY | | EXTERNAL | | | Morphology | APPEAR NORMALComment: | | LAB | | | | Testing performed at | | | | | | [facility];[address];[place] [address] | | | | + + + + + + | Platelet | ADEQUATEComment: Testing | | EXTERNAL | | | Estimate | performed at [facility];[address] | | LAB | | | | [address];[place] | | | | | | [address] | | | | + + + + + + | Differentia | SLIDE SCANNED, AGREES | | EXTERNAL | | | l Comments | WITH AUTOMATED | | LAB | | | | RESULTS.Comment: Testing | | | | | | performed at [facility];[address] | | | | | | [address];[place] | | | | | | [address] | | | | + + + + + + | Na | 136Comment: Testing | 135 - 145 | EXTERNAL | | | | performed at [facility];[address] | mmol/L | LAB | | | | [address];[place] | | | | | | [address] | | | | + + + + + + | K | 3.9Comment: SLT | 3.5 - 4.9 | EXTERNAL | | | | HEMOLYSISTesting | mmol/L | LAB | | | | performed at [facility];[address] | | | | | | [address];[place] | | | | | | [address] | | | | + + + + + + | Cl | 101Comment: Testing | 99 - 109 mmol/L | EXTERNAL | | | | performed at [facility];[address] | | LAB | | | | [address];[place] | | | | | | [address] | | | | + + + + + + | CO2 | 24Comment: Testing | 23 - 32 mmol/L | EXTERNAL | | | | performed at [facility];[address] | | LAB | | | | [address];[place] | | | | | | [address] | | | | + + + + + + | Anion Gap | 15Comment: Testing | 5 - 20 mmol/L | EXTERNAL | | | | performed at [facility];[address] | | LAB | | | | [address];[place] | | | | | | [address] | | | | + + + + + + | Glucose, | 255 (H)Comment: Testing | 65 - 99 mg/dL | EXTERNAL | | | Fasting | performed at [facility];[address] | | LAB | | | | [address];[place] | | | | | | [address] | | | | + + + + + + | BUN | 12Comment: Testing | 8 - 25 mg/dL | EXTERNAL | | | | performed at [facility];[address] | | LAB | | | | [address];[place] | | | | | | [address] | | | | + + + + + + | Creatinine | 0.97Comment: Testing | 0.50 - 1.00 | EXTERNAL | | | | performed at [facility];[address] | mg/dL | LAB | | | | [address];[place] | | | | | | [address] | | | | + + + + + + | BUN/Creatin | 13Comment: Testing | | EXTERNAL | | | ine Ratio | performed at [facility];[address] | | LAB | | | | [address];[place] | | | | | | [address] | | | | + + + + + + | Calcium | 10.5Comment: Testing | 8.5 - 10.5 | EXTERNAL | | | | performed at [facility];[address] | mg/dL | LAB | | | | [address];[place] | | | | | | [address] | | | | + + + + + + | Protein, | 8.8 (H)Comment: Testing | 6.3 - 8.2 g/dL | EXTERNAL | | | Total | performed at [facility];[address] | | LAB | | | | [address];[place] | | | | | | [address] | | | | + + + + + + | Albumin | 4.5Comment: Testing | 3.3 - 4.8 g/dL | EXTERNAL | | | | performed at [facility];[address] | | LAB | | | | [address];[place] | | | | | | [address] | | | | + + + + + + | Globulin | 4.4Comment: Testing | 1.3 - 4.9 g/dL | EXTERNAL | | | | performed at [facility];[address] | | LAB | | | | [address];[place] | | | | | | [address] | | | | + + + + + + | A/G Ratio | 1.0Comment: Testing | 1.0 - 2.4 | EXTERNAL | | | | performed at [facility];[address] | | LAB | | | | [address];[place] | | | | | | [address] | | | | + + + + + + | Bilirubin | 0.3Comment: Testing | 0.1 - 1.5 mg/dL | EXTERNAL | | | Total | performed at [facility];[address] | | LAB | | | | [address];[place] | | | | | | [address] | | | | + + + + + + | ALP, | 109Comment: Testing | 35 - 115 U/L | EXTERNAL | | | External | performed at [facility];[address] | | LAB | | | | [address];[place] | | | | | | [address] | | | | + + + + + + | AST | 14Comment: SLT | 10 - 45 U/L | EXTERNAL | | | | HEMOLYSISTesting | | LAB | | | | performed at [facility];[address] | | | | | | [address];[place] | | | | | | [address] | | | | + + + + + + | ALT | 20Comment: Testing | 10 - 65 U/L | EXTERNAL | | | | performed at [facility];[address] | | LAB | | | | [address];[place] | | | | | | [address] | | | | + + + [...] | | | | | | at [facility];[address];[place] [address] | | | | + + + + + + | CK, Total | 65Comment: Testing | 30 - 240 U/L | EXTERNAL | | | | performed at [facility];[address] | | LAB | | | | [address];[place] | | | | | | [address] | | | | + + + [...] | | | | | performed at [facility];[address] | | | | | | [address];[place] | | | | | | [address] | | | | + + + + + + | aPTT, | 30Comment: Testing | 23 - 32 seconds | EXTERNAL | | | Patient | performed at [facility];[address] | | LAB | | | | [address];[place] | | | | | | [address] | | | | + + + + + + | CK-MB | <1.0Comment: Testing | 0.5 - 3.6 ng/mL | EXTERNAL | | | | performed at [facility];[address] | | LAB | | | | [address];[place] | | | | | | [address] | | | | + + + + + + | CK-MB Index | UNABLE TO | | EXTERNAL | | | | CALCULATEComment: | | LAB | | | | Testing performed at | | | | | | [facility];[address];[place] [address] | | | | + + + [...] EXTERNAL | | | | performed at [facility];[address] | | LAB | | | | [address];[place], [place] | | | | | | [address] | | | | + + + [...] (500), | | | | | | electronic news gathering editor Jhonny Bates | | | | | | (124) on 03/05/2016 | | | | | | 5:34:53 AM | | | | + + + + + + + + | Specimen | + + | | + + + + + | Narrative | Performed At | + + + | Historically converted procedure from [facility] environment | EXTERNAL LAB | + + [...]
--- OUTSIDE RECORDS SUMMARY | ~2019-04-09 | XMS | Encounter Summary ---
Demographics + + + | Address | [address] | | | [place] [address] | + + + | Home Phone | | + + + | Preferred Language | Unknown | + + + | Marital Status | | + + + | Yarsani Affiliation | Unknown | + + + | Race | Unknown | + + + | Ethnic Group | Unknown | + + + Author + + + | Author | [facility] | | | and [place] | + + + | Organization | [facility] | | | and [place] [...] Team Providers + +------+ + | Care Gelatin Dynamite Packing Operator Name | Role | Phone | + +------+ + PCP | Unavailable | + +------+ + Encounter Details +--------+ + + + + | Date | Type | Department | Care Team | Description | +--------+ + + + + | 11/25/ | Hospital | [facility] | Conversion | | | 2016 | Encounter | [facility] | Transaction, | | | | | SERVICES [address] | Provider Unknown | | | | | [place] | | | | | | [phone] | (Fax) | | | | | [phone] | | | +--------+ + + + [...] Cortés RN, CDE Service: (none) Author Type: Bottomer Operator Filed: 11/26/15 1230 Date of Service: 11/26/15 1100 Status: Signed Justice Of The Peace: Heidi Cortés RN, CDE (Bottomer Operator) Progress note for general diabetes (individual) REASON [...] be seeing her PCP (Lynne Lowry in [place]) on 12/16/15. OBJECTIVE: Wt Readings from Last [...] Nutrition Goal: Yes Follow meal plan: New [facility] Resource List (handouts) Class Packets: Insulin Packet PLAN: Whit will return for follow-up on 12/24/15. Encouraged her to contact us in the meantime wi th any questions or concerns. Heidi Cortés RN, CDE Group Reservations Coordinator 11/26/2015 12:29 PM documented in th is encounter Plan of Treatment Not on filedocumented as of this encounter Visit Diagnoses Not on filedocumented in this encounter
--- OUTSIDE RECORDS SUMMARY | ~2019-04-09 | XMS | Encounter Summary ---
Demographics + + + | Address | [address] | | | [place] [address] | + + + | Home Phone | | + + + | Preferred Language | Unknown | + + + | Marital Status | | + + + | Synagogue Affiliation | Unknown | + + + | Race | Unknown | + + + | Ethnic Group | Unknown | + + + Author + + + | Author | [facility] | | | and [place] | + + + | Organization | [facility] | | | and [place] [...] Team Providers + +------+ + | Care Party Bus Driver Name | Role | Phone | + +------+ + PCP | Unavailable | + +------+ + Encounter Details +--------+ + + + + | Date | Type | Department | Care Team | Description | +--------+ + + + + | 11/19/ | Hospital | [facility] | R[facility] | Chest pain in adult; | | 2016 - | Encounter | [facility] | MD [address] | Hyponatremia; | | | | CARE FLOOR [address] | [facility] | Hypokalemia; | | 11/23/ | | [address] | [place] [address] | Gastritis and | | 2016 | | [place] | [phone] | duodenitis; Type 2 | | | | [address] | | diabetes mellitus | | | | [phone] | | without complication | | | [...] 1024 Date of Service: 11/24/15821 Status: Signed Risk Management Professional: Demetria Mixon MD (Physician) [facility] Service: Hospitalist Discharge Summary Date of [...] medications. Past Medical History Diagnosis Date Hypertension [place] (myocardial infarction) (HCC) Hyperlipidemia Diabetes mellitus, type 2 (HCC) CAD (coronary artery disease) 11/18/2015 Past Surgical History Procedure Laterality Date Hysterectomy Oophorectomy Coronary stent placement Cardiac catheterization Neck surgery Esophagogastroduodenoscopy N/A 11/18/2015 Procedure: ESOPHAGOGASTRODUODENOSCOPY; Surgeon: Jasson Stauffer IV, MD; Location: [facility]; Service: Gastroenterology; Laterality: N/A; Allergies Allergen Reactions [...] 11/19/2015 at Unknown time vitamin D2, ergocalciferol, 67522 UNITS capsule once a week. 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 You may get the following medications [...] Notes by Demetria Mixon MD at 11/23/15 0753 Author: Demetria Mixon MD Service: Hospitalist Author Type: Physician Filed: 11/23/15 1844 Date of Service: 11/23/151133 Status: Signed Risk Management Professional: Demetria Mixon MD (Physician) [facility] Service: Hospitalist Progress Note Hospital Day: [...] Notes by Demetria Mixon MD at 11/22/15 5924 Author: Demetria Mixon MD Service: Hospitalist Author Type: Physician Filed: 11/22/152007 Date of Service: 11/22/151104 Status: Signed Risk Management Professional: Demetria Mixon MD (Physician) [facility] Service: Hospitalist Progress Note Hospital Day: [...] Author: RONI Prince Service: (none) Author Type: Home Organizer Filed: 11/21/15 908 Date of Service: 11/21/15 1800 Status: Signed Risk Management Professional: RONI Prince (Home Organizer) 11/21/15 1700 Discharge Planning Evaluation Admitting Diagnosis [...] No Living Arrangements Spouse/significant other (Kiana Hurt [phone]) Type of Residence Private residence House type Mobile home Steps to enter 2 Independent with ADL's Yes Independent with Mobility Yes Home Care Services No Mental Status Oriented Prior functional status 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 She is takin g Plavix as a blood thinner and her insurance covers the entire cost. She has no caregivers or Home O2. Resources Transportation issues [place] [facility] [employer] [address]; recent change from [employer] [...] home with care from spouse Jayshree Campbell PHYSICIAN PRACTICE ADMINISTRATOR-Case Management [employer] العراقيaction, Provider Unknown - 11/21/2015 5:53 PM PDT Nurse Progress Note by Bin Mendoza RN at 11/21/151752 Author: Bin Mendoza RN Service: (none) Author Type: Registered Nurse Filed: 11/21/151753 Date of Service: 11/21/151752 Status: Signed Risk Management Professional: Bin Mendoza RN (Registered Nurse) Pt resting comfortably in bed. Tolerating clear liquid diet. Complains of abdominal pain at 7/10. States she is able to tolerate this. Independent in room. No changes since earlier as sessment. BIN MENDOZA [employer] Transaction, Provider Unknown - 11/21/2015 3:16 PM PDT Progress Notes by Zohra Martinez RD at 11/21/15 4412 Author: Zohra Martinez RD Service: (none) Author Type: Registered Dietitian Filed: 11/21/15 1516 Date of Service: 11/21/151515 Status: Signed Risk Management Professional: Zohra Martinez RD (Registered Dietitian) 11/21/15 9330 Subjective Timepoint Admit (Consult - low intake) [...] Estimated Energy Needs Total Energy Estimated Needs 0861-0594 kcals Method for Estimating Needs 25-30 kcal/kg [...] Service: Hospitalist Author Type: Physician Filed: 11/21/15 7853 Date of Service: 11/21/151322 Status: Addendum Risk Management Professional: Demetria Mixon MD (Physician) Related Notes: Original Note by Demetria Mixon MD (Physician) filed at 11/21/15 3638 [facility] Service: Hospitalist Progress Note Hospital Day: [...] Date of Service: 11/20/15 1257 Status: Signed Risk Management Professional: Shahzad Montoya RPH (Pharmacist) Clinical Pharmacy Note: Renal Monitoring Whit Hurt 60 y.o. female Ht Readings from Last 1 Encounters: 11/16/15 1.651 m (5' 5") Wt Readings from Last 1 Encounters: 11/20/15 79.8 kg (175 lb 14.8 oz) CREATININE Date Value Ref Range Status 11/20/2015 0.84 0.50 - 1.00 mg/dL Final Comment: Testing performed at [facility];[address] [place] [address];[place] [address] CREATININE: 0.84 (11/20/15 0721) Estimated creatinine clearance [...] | | | Fingerstick | performed at [facility];[address] | | LAB | | | | [address];[place] | | | | | | [address] | | | | + + + [...] EXTERNAL | | | | performed at [facility], [address] | mmol/L | LAB | | | | [address], | | | | | | [place] [address] | | | | + + + + + + | K | 3.3 (L)Comment: Testing | 3.5 - 4.9 | EXTERNAL | | | | performed at [facility], [address] | mmol/L | LAB | | | | [address], | | | | | | [place] [address] | | | | + + + + + + | Cl | 104Comment: Testing | 99 - 109 mmol/L | EXTERNAL | | | | performed at [facility], [address] | | LAB | | | | [address], | | | | | | [place] [address] | | | | + + + + + + | CO2 | 30Comment: Testing | 23 - 32 mmol/L | EXTERNAL | | | | performed at [facility], [address] | | LAB | | | | [address], | | | | | | [place] [address] | | | | + + + + + + | Anion Gap | 11Comment: Testing | 5 - 20 mmol/L | EXTERNAL | | | | performed at [facility], [address] | | LAB | | | | [address], | | | | | | [place] [address] | | | | + + + + + + | Glucose, | 121 (H)Comment: Testing | 65 - 99 mg/dL | EXTERNAL | | | Fasting | performed at [facility], [address] | | LAB | | | | [address], | | | | | | [place] [address] | | | | + + + + + + | BUN | 8Comment: Testing | 8 - 25 mg/dL | EXTERNAL | | | | performed at [facility], [address] | | LAB | | | | [address], | | | | | | [place] [address] | | | | + + + + + + | Creatinine | 0.7Comment: Testing | 0.50 - 1.00 | EXTERNAL | | | | performed at [facility], [address] | mg/dL | LAB | | | | [address], | | | | | | [place] [address] | | | | + + + + + + | Calcium | 9.5Comment: Testing | 8.5 - 10.5 | EXTERNAL | | | | performed at [facility], [address] | mg/dL | LAB | | | | [address], | | | | | | [place] [address] | | | | + + + + + + | Albumin | 3.1 (L)Comment: Testing | 3.3 - 4.8 g/dL | EXTERNAL | | | | performed at [facility], [address] | | LAB | | | | [address], | | | | | | [place] [address] | | | | + + + + + + | PHOSPHORUS | 3.1Comment: Testing | 2.3 - 4.8 mg/dL | EXTERNAL | | | | performed at [facility], [address] | | LAB | | | | [address], | | | | | | [place] [address] | | | | + + + [...] | | | | | | at [facility], [address] | | | | | | [address], | | | | | | [place] [address] | | | | + + + [...] | | | Fingerstick | performed at [facility];[address] | | LAB | | | | [address];[place], [place] | | | | | | [address] | | | | + + + [...] | | | Fingerstick | performed at [facility];[address] | | LAB | | | | [address];[place] | | | | | | [address] | | | | + + + [...] | | | Fingerstick | performed at [facility];[address] | | LAB | | | | [address];[place] | | | | | | [address] | | | | + + [...] | | | Fingerstick | performed at [facility];[address] | | LAB | | | | [address];[place], [place] | | | | | | [address] | | | | + + + [...] | | | | [facility], [address] [facility] | | | | | | [place] | | | | | | [address] | | | | + + + + + + | RED CELL | 4.38Comment: Testing | 3.70 - 5.10 | EXTERNAL | | | COUNT | performed at [facility], [address] | M/uL | LAB | | | | [address], | | | | | | [place] [address] | | | | + + + + + + | Hgb | 13.8Comment: Testing | 11.3 - 15.5 | EXTERNAL | | | | performed at [facility], [address] | g/dL | LAB | | | | [address], | | | | | | [place] [address] | | | | + + + + + + | Hematocrit, | 40.4Comment: Testing | 34.0 - 46.0 % | EXTERNAL | | | POC | performed at [facility], [address] | | LAB | | | | [address], | | | | | | [place] [address] | | | | + + + + + + | MCV | 92.3Comment: Testing | 80.0 - 100.0 fl | EXTERNAL | | | | performed at [facility], [address] | | LAB | | | | [address], | | | | | | [place] [address] | | | | + + + + + + | MCH | 31.5Comment: Testing | 27.0 - 34.0 pg | EXTERNAL | | | | performed at [facility], [address] | | LAB | | | | [address], | | | | | | [place] [address] | | | | + + + + + + | MCHC | 34.1Comment: Testing | 32.0 - 35.5 | EXTERNAL | | | | performed at [facility], [address] | g/dL | LAB | | | | [address], | | | | | | [place] [address] | | | | + + + + + + | RDW-CV | 42.9Comment: Testing | 37 - 53 fl | EXTERNAL | | | | performed at [facility], [address] | | LAB | | | | [address], | | | | | | [place] [address] | | | | + + + + + + | Platelet | 294Comment: Testing | 150 - 400 K/uL | EXTERNAL | | | Count | performed at [facility], [address] | | LAB | | | Plasma | [address], | | | | | | [place] [address] | | | | + + + + + + | MPV | 8.9Comment: Testing | fl | EXTERNAL | | | | performed at [facility], [address] | | LAB | | | | [address], | | | | | | [place] [address] | | | | + + + + + + | Differentia | AUTOMATEDComment: | | EXTERNAL | | | l Type | Testing performed at | | LAB | | | | [facility], [address] | | | | | | [place] | | | | | | [address] | | | | + + + + + + | % Segmented | 60.23Comment: Testing | % | EXTERNAL | | | | performed at [facility], [address] | | LAB | | | Neutrophils | [address], | | | | | | [place] [address] | | | | + + + + + + | % | 28.36Comment: Testing | % | EXTERNAL | | | Lymphocytes | performed at [facility], [address] | | LAB | | | | [address], | | | | | | [place] [address] | | | | + + + + + + | % Monocytes | 9.19Comment: Testing | % | EXTERNAL | | | | performed at [facility], [address] | | LAB | | | | [address], | | | | | | [place] [address] | | | | + + + + + + | % | 1.49Comment: Testing | % | EXTERNAL | | | Eosinophils | performed at [facility], [address] | | LAB | | | | [address], | | | | | | [place] [address] | | | | + + + + + + | % Basophils | 0.73Comment: Testing | % | EXTERNAL | | | | performed at [facility], [address] | | LAB | | | | [address], | | | | | | [place] [address] | | | | + + + + + + | Absolute | 6.68Comment: Testing | 1.90 - 7.40 | EXTERNAL | | | Segmented | performed at [facility], [address] | K/uL | LAB | | | Neutrophils | [address], | | | | | | [place] [address] | | | | + + + + + + | Absolute | 3.15Comment: Testing | 1.00 - 3.90 | EXTERNAL | | | Lymphocytes | performed at [facility], [address] | K/uL | LAB | | | | [address], | | | | | | [place] [address] | | | | + + + + + + | Absolute | 1.02 (H)Comment: Testing | 0.00 - 0.80 | EXTERNAL | | | Monocytes | performed at [facility], [address] | K/uL | LAB | | | | [address], | | | | | | [place] [address] | | | | + + + + + + | Absolute | 0.17Comment: Testing | 0.00 - 0.50 | EXTERNAL | | | Eosinophils | performed at [facility], [address] | K/uL | LAB | | | | [address], | | | | | | [place] [address] | | | | + + + + + + | Absolute | 0.08Comment: Testing | 0.00 - 0.10 | EXTERNAL | | | Basophils | performed at [facility], [address] | K/uL | LAB | | | | [address], | | | | | | [place] [address] | | | | + + + [...] | | | | | [place] [address] | | | | + + + [...] | | | | | [place] [address] | | | | + + + + + + | K | 3.3 (L)Comment: SPECIMEN | 3.5 - 4.9 | EXTERNAL | | | | SLIGHTLY | mmol/L | LAB | | | | HEMOLYZEDTesting | | | | | | performed at [facility], [address] | | | | | | [address], | | | | | | [place] [address] | | | | + + + + + + | Cl | 107Comment: Testing | 99 - 109 mmol/L | EXTERNAL | | | | performed at [facility], [address] | | LAB | | | | [address], | | | | | | [place] [address] | | | | + + + + + + | CO2 | 28Comment: Testing | 23 - 32 mmol/L | EXTERNAL | | | | performed at [facility], [address] | | LAB | | | | [address], | | | | | | [place] [address] | | | | + + + + + + | Anion Gap | 11Comment: Testing | 5 - 20 mmol/L | EXTERNAL | | | | performed at [facility], [address] | | LAB | | | | [address], | | | | | | [place] [address] | | | | + + + [...] | | | | | [place] [address] | | | | + + + + + + | BUN | 5 (L)Comment: Testing | 8 - 25 mg/dL | EXTERNAL | | | | performed at [facility], [address] | | LAB | | | | [address], | | | | | | [place] [address] | | | | + + + + + + | Creatinine | 0.6Comment: SPECIMEN | 0.50 - 1.00 | EXTERNAL | | | | SLIGHTLY | mg/dL | LAB | | | | HEMOLYZEDTesting | | | | | | performed at [facility], [address] | | | | | | [address], | | | | | | [place] [address] | | | | + + + + + + | Calcium | 9.0Comment: Testing | 8.5 - 10.5 | EXTERNAL | | | | performed at [facility], [address] | mg/dL | LAB | | | | [address], | | | | | | [place] [address] | | | | + + + + + + | Albumin | 3.0 (L)Comment: Testing | 3.3 - 4.8 g/dL | EXTERNAL | | | | performed at [facility], [address] | | LAB | | | | [address], | | | | | | [place] [address] | | | | + + + + + + | PHOSPHORUS | 2.8Comment: SPECIMEN | 2.3 - 4.8 mg/dL | EXTERNAL | | | | SLIGHTLY | | LAB | | | | HEMOLYZEDTesting | | | | | | performed at [facility], [address] | | | | | | [address], | | | | | | [place] [address] | | | | + + + [...] | | | | | [place] [address] | | | | + + + [...] | | | Fingerstick | performed at [facility];[address] | | LAB | | | | [address];[place], [place] | | | | | | [address] | | | | + + + [...] | | | Fingerstick | performed at [facility] | | LAB | | | | [address];[place] | | | | | | [address] | | | | + + + [...] | | | Fingerstick | performed at [facility];[address] | | LAB | | | | [address];[place], [place] | | | | | | [address] | | | | + + + [...] | | | Fingerstick | performed at [facility];[address] | | LAB | | | | [address];[place] | | | | | | [address] | | | | + + + [...] | | | | [facility], [address] [facility] | | | | | | [place] | | | | | | [address] | | | | + + + + + + | RED CELL | 4.52Comment: Testing | 3.70 - 5.10 | EXTERNAL | | | COUNT | performed at [facility], [address] | M/uL | LAB | | | | [address], | | | | | | [place] [address] | | | | + + + + + + | Hgb | 14.2Comment: Testing | 11.3 - 15.5 | EXTERNAL | | | | performed at [facility], [address] | g/dL | LAB | | | | [address], | | | | | | [place] [address] | | | | + + + + + + | Hematocrit, | 41.8Comment: Testing | 34.0 - 46.0 % | EXTERNAL | | | POC | performed at [facility], [address] | | LAB | | | | [address], | | | | | | [place] [address] | | | | + + + + + + | MCV | 92.5Comment: Testing | 80.0 - 100.0 fl | EXTERNAL | | | | performed at [facility], [address] | | LAB | | | | [address], | | | | | | [place] [address] | | | | + + + + + + | MCH | 31.3Comment: Testing | 27.0 - 34.0 pg | EXTERNAL | | | | performed at [facility], [address] | | LAB | | | | [address], | | | | | | [place] [address] | | | | + + + + + + | MCHC | 33.9Comment: Testing | 32.0 - 35.5 | EXTERNAL | | | | performed at [facility], [address] | g/dL | LAB | | | | [address], | | | | | | [place] [address] | | | | + + + + + + | RDW-CV | 42.9Comment: Testing | 37 - 53 fl | EXTERNAL | | | | performed at [facility], [address] | | LAB | | | | [address], | | | | | | [place] [address] | | | | + + + + + + | Platelet | 298Comment: Testing | 150 - 400 K/uL | EXTERNAL | | | Count | performed at [facility], [address] | | LAB | | | Plasma | [address], | | | | | | [place] [address] | | | | + + + + + + | MPV | 8.8Comment: Testing | fl | EXTERNAL | | | | performed at [facility], [address] | | LAB | | | | [address], | | | | | | [place] [address] | | | | + + + + + + | Differentia | AUTOMATEDComment: | | EXTERNAL | | | l Type | Testing performed at | | LAB | | | | [facility], [address] | | | | | | [place] | | | | | | [address] | | | | + + + + + + | % Segmented | 67.53Comment: Testing | % | EXTERNAL | | | | performed at [facility], [address] | | LAB | | | Neutrophils | [address], | | | | | | [place] [address] | | | | + + + + + + | % | 22.66Comment: Testing | % | EXTERNAL | | | Lymphocytes | performed at [facility], [address] | | LAB | | | | [address], | | | | | | [place] [address] | | | | + + + + + + | % Monocytes | 9.12Comment: Testing | % | EXTERNAL | | | | performed at [facility], [address] | | LAB | | | [address], | | | | | | [place] [address] | | | | + + + + + + | % | 0.43Comment: Testing | % | EXTERNAL | | | Eosinophils | performed at [facility], [address] | | LAB | | | | [address], | | | | | | [place] [address] | | | | + + + + + + | % Basophils | 0.26Comment: Testing | % | EXTERNAL | | | | performed at [facility], [address] | | LAB | | | | [address], | | | | | | [place] [address] | | | | + + + + + + | Absolute | 7.56 (H)Comment: Testing | 1.90 - 7.40 | EXTERNAL | | | Segmented | performed at [facility], [address] | K/uL | LAB | | | Neutrophils | [address], | | | | | | [place] [address] | | | | + + + + + + | Absolute | 2.54Comment: Testing | 1.00 - 3.90 | EXTERNAL | | | Lymphocytes | performed at [facility], [address] | K/uL | LAB | | | | [address], | | | | | | [place] [address] | | | | + + + + + + | Absolute | 1.02 (H)Comment: Testing | 0.00 - 0.80 | EXTERNAL | | | Monocytes | performed at [facility], [address] | K/uL | LAB | | | | [address], | | | | | | [place] [address] | | | | + + + + + + | Absolute | 0.05Comment: Testing | 0.00 - 0.50 | EXTERNAL | | | Eosinophils | performed at [facility], [address] | K/uL | LAB | | | | [address], | | | | | | [place] [address] | | | | + + + + + + | Absolute | 0.03Comment: Testing | 0.00 - 0.10 | EXTERNAL | | | Basophils | performed at [facility], [address] | K/uL | LAB | | | | [address], | | | | | | [place] [address] | | | | + + + [...] | | | | | [place] [address] | | | | + + + + + + | K | 3.5Comment: SPECIMEN | 3.5 - 4.9 | EXTERNAL | | | | SLIGHTLY | mmol/L | LAB | | | | HEMOLYZEDTesting | | | | | | performed at [facility], [address] | | | | | | [address], | | | | | | [place] [address] | | | | + + + + + + | Cl | 110 (H)Comment: Testing | 99 - 109 mmol/L | EXTERNAL | | | | performed at [facility], [address] | | LAB | | | | [address], | | | | | | [place] [address] | | | | + + + + + + | CO2 | 24Comment: Testing | 23 - 32 mmol/L | EXTERNAL | | | | performed at [facility], [address] | | LAB | | | | [address], | | | | | | [place] [address] | | | | + + + + + + | Anion Gap | 13Comment: Testing | 5 - 20 mmol/L | EXTERNAL | | | | performed at [facility], [address] | | LAB | | | | [address], | | | | | | [place] [address] | | | | + + + [...] | | | | | [place] [address] | | | | + + + + + + | BUN | 8Comment: Testing | 8 - 25 mg/dL | EXTERNAL | | | | performed at [facility], [address] | | LAB | | | | [address], | | | | | | [place] [address] | | | | + + + + + + | Creatinine | 0.6Comment: SPECIMEN | 0.50 - 1.00 | EXTERNAL | | | | SLIGHTLY | mg/dL | LAB | | | | HEMOLYZEDTesting | | | | | | performed at [facility], [address] | | | | | | [address], | | | | | | [place] [address] | | | | + + + + + + | Calcium | 8.9Comment: Testing | 8.5 - 10.5 | EXTERNAL | | | | performed at [facility], [address] | mg/dL | LAB | | | | [address], | | | | | | [place] [address] | | | | + + + + + + | Albumin | 2.8 (L)Comment: Testing | 3.3 - 4.8 g/dL | EXTERNAL | | | | performed at [facility], [address] | | LAB | | | | [facility], | | | | | | [place] [address] | | | | + + + + + + | PHOSPHORUS | 2.0 (L)Comment: SPECIMEN | 2.3 - 4.8 mg/dL | EXTERNAL | | | | SLIGHTLY | | LAB | | | | HEMOLYZEDTesting | | | | | | performed at [facility], [address] | | | | | | [facility], | | | | | | [place] [address] | | | | + + + [...] | | | | | | [place] [address] | | | | + + + [...] | EXTERNAL LAB | | performed at [facility];[address] [place] [address];[place] [address] TOXIN A | | | NEGATIVE Testing performed at | | | [facility];[address] [place] [address];[place] [address] C DIFF INTERPRETATION | | | Negative for toxigenic C.difficile. Testing performed at | | | [facility];[address] [place] [address];[place] [address] | | + + + + +---------+ [...] | | | Fingerstick | performed at [facility];[address] | | LAB | | | | [address];[place] | | | | | | [address] | | | | + + + [...] | | | | | [place] [address] | | | | + + + [...] | | | Fingerstick | performed at [facility];[address] | | LAB | | | | [address];[place], [place] | | | | | | [address] | | | | + + + [...] | | | Fingerstick | performed at [facility];[address] | | LAB | | | | [address];[place] | | | | | | [address] | | | | + + + [...] | | | Fingerstick | performed at [facility];[address] | | LAB | | | | [address];[place], [place] | | | | | | [address] | | | | + + + [...] | | | | [facility], [address] [facility] | | | | | | [place] | | | | | | [address] | | | | + + + + + + | RED CELL | 4.67Comment: Testing | 3.70 - 5.10 | EXTERNAL | | | COUNT | performed at [facility], [address] | M/uL | LAB | | | | [address], | | | | | | [place] [address] | | | | + + + + + + | Hgb | 14.6Comment: Testing | 11.3 - 15.5 | EXTERNAL | | | | performed at [facility], [address] | g/dL | LAB | | | | [address], | | | | | | [place] [address] | | | | + + + + + + | Hematocrit, | 42.8Comment: Testing | 34.0 - 46.0 % | EXTERNAL | | | POC | performed at [facility], [address] | | LAB | | | | [address], | | | | | | [place] [address] | | | | + + + + + + | MCV | 91.6Comment: Testing | 80.0 - 100.0 fl | EXTERNAL | | | | performed at [facility], [address] | | LAB | | | | [address], | | | | | | [place] [id number] | | | | + + + + + + | MCH | 31.2Comment: Testing | 27.0 - 34.0 pg | EXTERNAL | | | | performed at [facility], [address] | | LAB | | | | [address], | | | | | | [place] [address] | | | | + + + + + + | MCHC | 34.1Comment: Testing | 32.0 - 35.5 | EXTERNAL | | | | performed at [facility], [address] | g/dL | LAB | | | | [address], | | | | | | [place] [address] | | | | + + + + + + | RDW-CV | 42.9Comment: Testing | 37 - 53 fl | EXTERNAL | | | | performed at [facility], [address] | | LAB | | | | [address], | | | | | | [place] [address] | | | | + + + + + + | Platelet | 313Comment: Testing | 150 - 400 K/uL | EXTERNAL | | | Count | performed at [facility], [address] | | LAB | | | Plasma | [address], | | | | | | [place] [address] | | | | + + + + + + | MPV | 8.4Comment: Testing | fl | EXTERNAL | | | | performed at [facility], [address] | | LAB | | | | [address], | | | | | | [place] [address] | | | | + + + + + + | Differentia | AUTOMATEDComment: | | EXTERNAL | | | l Type | Testing performed at | | LAB | | | | [facility], [address] | | | | | | [place] | | | | | | [address] | | | | + + + + + + | % Segmented | 63.65Comment: Testing | % | EXTERNAL | | | | performed at [facility], [address] | | LAB | | | Neutrophils | [address] [place], | | | | | | [place] [address] | | | | + + + + + + | % | 25.97Comment: Testing | % | EXTERNAL | | | Lymphocytes | performed at [facility], [address] | | LAB | | | | [place], | | | | | | [place] [address] | | | | + + + + + + | % Monocytes | 9.67Comment: Testing | % | EXTERNAL | | | | performed at [facility], [address] | | LAB | | | | [place], | | | | | | [place] [address] | | | | + + + + + + | % | 0.35Comment: Testing | % | EXTERNAL | | | Eosinophils | performed at [facility], [address] | | LAB | | | | [place], | | | | | | [place] [address] | | | | + + + + + + | % Basophils | 0.36Comment: Testing | % | EXTERNAL | | | | performed at [facility], [address] | | LAB | | | | [address], | | | | | | [place] [address] | | | | + + + + + + | Absolute | 8.09 (H)Comment: Testing | 1.90 - 7.40 | EXTERNAL | | | Segmented | performed at [facility], [address] | [address] | LAB | | | Neutrophils | [address], | | | | | | [place] [address] | | | | + + + + + + | Absolute | 3.30Comment: Testing | 1.00 - 3.90 | EXTERNAL | | | Lymphocytes | performed at [facility], [address] | K/uL | LAB | | | | [address], | | | | | | [place] [address] | | | | + + + + + + | Absolute | 1.23 (H)Comment: Testing | 0.00 - 0.80 | EXTERNAL | | | Monocytes | performed at [facility], [address] | [address] | LAB | | | | [address], | | | | | | [place] [address] | | | | + + + + + + | Absolute | 0.04Comment: Testing | 0.00 - 0.50 | EXTERNAL | | | Eosinophils | performed at [facility], [address] | K/uL | LAB | | | | [address], | | | | | | [place] [address] | | | | + + + + + + | Absolute | 0.05Comment: Testing | 0.00 - 0.10 | EXTERNAL | | | Basophils | performed at [facility], [address] | K/uL | LAB | | | | [place] [place], | | | | | | [place] [address] | | | | + + + [...] | | | | | [place] [address] | | | | + + + + + + | K | 3.2 (L)Comment: Testing | 3.5 - 4.9 | EXTERNAL | | | | performed at [facility], [address] | mmol/L | LAB | | | | [place] [place], | | | | | | [place] [address] | | | | + + + + + + | Cl | 102Comment: Testing | 99 - 109 mmol/L | EXTERNAL | | | | performed at [facility], [address] | | LAB | | | | [address], | | | | | | [place] [address] | | | | + + + + + + | CO2 | 28Comment: Testing | 23 - 32 mmol/L | EXTERNAL | | | | performed at [facility], [address] | | LAB | | | | [address], | | | | | | [place] [address] | | | | + + + + + + | Anion Gap | 12Comment: Testing | 5 - 20 mmol/L | EXTERNAL | | | | performed at [facility], [address] | | LAB | | | [address], | | | | | | [place] [address] | | | | + + + + + + | Glucose, | 186 (H)Comment: Testing | 65 - 99 mg/dL | EXTERNAL | | | Fasting | performed at [facility], [address] | | LAB | | | | [address], | | | | | | [place] [address] | | | | + + + + + + | BUN | 12Comment: Testing | 8 - 25 mg/dL | EXTERNAL | | | | performed at [facility], [address] | | LAB | | | | [address], | | | | | | [place] [address] | | | | + + + + + + | Creatinine | 0.7Comment: Testing | 0.50 - 1.00 | EXTERNAL | | | | performed at [facility], [address] | mg/dL | LAB | | | | [address], | | | | | | [place] [address] | | | | + + + + + + | BUN/Creatin | 17Comment: Testing | | EXTERNAL | | | ine Ratio | performed at [facility], [address] | | LAB | | | | [address], | | | | | | [place] [address] | | | | + + + + + + | Calcium | 8.8Comment: Testing | 8.5 - 10.5 | EXTERNAL | | | | performed at [facility], [address] | mg/dL | LAB | | | | [address], | | | | | | [place] [address] | | | | + + + [...] | | | | | | [address] [facility], | | | | | | [place] [address] | | | | + + + [...] | | | Fingerstick | performed at [facility];[address] | | LAB | | | | [address] [place];[place] | | | | | | [address] | | | | + + + [...] | | | Fingerstick | performed at [facility];[address] | | LAB | | | | [address];[place] | | | | | | [address] | | | | + + + [...] DIAGNOSTICTESTING.THE | | | | | | [employer]LE[employer] OF | | | | | [...] | | | | | performed at [facility], [address] | | | | | | [place] | | | | | | [place] [address] | | | | + + + [...] | | | | | | PURPOSES.THE IT[employer]IAN | | | | | | COLLEGE [...] | | | | | performed at [facility], [address] | | | | | | [place] | | | | | | [place] [address] | | | | + + + [...] EXTERNAL | | | | performed at [facility], [address] | | LAB | | | | [place], | | | | | | [place] [address] | | | | + + + [...] EXTERNAL | | | | performed at [facility], [address] | | LAB | | | | [place], | | | | | | [place] [address] | | | | + + [...] | | LAB | | | | [facility];[address] | | | | | | [address];[place] [address] | | | | + + + + + + | Clarity | CLEARComment: Testing | | EXTERNAL | | | | performed at [facility];[address] | | LAB | | | | [place] | | | | | | [address] | | | | + + + + + + | Specific | 1.009Comment: Testing | 1.002 - 1.030 | EXTERNAL | | | [place] | performed at [facility];[address] | | LAB | | | | [address];[place] | | | | | | [address] | | | | + + + + + + | Leukocyte | NEGATIVEComment: Testing | | EXTERNAL | | | Esterase, | performed at [facility];[address] | | LAB | | | Urine | [address];[place] | | | | | | [address] | | | | + + + + + + | Nitrite, | NEGATIVEComment: Testing | | EXTERNAL | | | Urine | performed at [facility];[address] | | LAB | | | | [address];[place] | | | | | | [address] | | | | + + + + + + | Urobilinoge | NORMALComment: Testing | mg/dL | EXTERNAL | | | n, Urine | performed at [facility];[address] | | LAB | | | | [address];[place] | | | | | | [address] | | | | + + + + + + | Protein, | NEGATIVEComment: Testing | mg/dL | EXTERNAL | | | Urine | performed at [facility];[address] | | LAB | | | | [address];[place] | | | | | | [address] | | | | + + + + + + | pH, Urine | 7.0Comment: Testing | 5.0 - 8.0 | EXTERNAL | | | | performed at [facility];[address] | | LAB | | | | [address];[place] | | | | | | [address] | | | | + + + + + + | Blood, | SMALL (A)Comment: | | EXTERNAL | | | Urine | Testing performed at | | LAB | | | | [facility];[address];[place] [address] | | | | + + + + + + | Ketones | 20 (A)Comment: Testing | mg/dL | EXTERNAL | | | | performed at [facility];[address] | | LAB | | | | [address];[place] | | | | | | [address] | | | | + + + + + + | Bilirubin, | NEGATIVEComment: Testing | | EXTERNAL | | | Urine | performed at [facility];[address] | | LAB | | | | [address];[place] | | | | | | [address] | | | | + + + + + + | Glucose, | >500 (A)Comment: Testing | mg/dL | EXTERNAL | | | Urine | performed at [facility];[address] | | LAB | | | | [address];[place] | | | | | | [address] | | | | + + + + + + | WBC, UA | 0-2Comment: Testing | 0 - 5 /hpf | EXTERNAL | | | | performed at [facility];[address] | | LAB | | | | [address];[place] | | | | | | [address] | | | | + + + + + + | RBC, UA | 0-2Comment: Testing | 0 - 5 /hpf | EXTERNAL | | | | performed at [facility];[address] | | LAB | | | | [address];[place] | | | | | | [address] | | | | + + + + + + | Bacteria, | 1+ (A)Comment: Testing | | EXTERNAL | | | UA | performed at [facility];[address] | | LAB | | | | [address];[place] | | | | | | [address] | | | | + + + + + + | Epithelial | 3-5Comment: Testing | /lpf | EXTERNAL | | | Cells | performed at [facility];[address] | | LAB | | | | [address];[place] | | | | | | [address] | | | | + + + + + + | MUCUS UA | 1+Comment: Testing | | EXTERNAL | | | | performed at [facility] | | LAB | | | | [address];[place], [place] | | | | | | [address] | | | | + + + [...] EXTERNAL | | | | performed at [facility];[address] | mmol/L | LAB | | | | [address];[place], [place] | | | | | | [address] | | | | + + + [...] K/uL | LAB | | | | [facility];[address] | | [address];[place] [address] | | | | + + + + + -+ | RED CELL | 5.38 (H)Comment: Testing | 3.70 - 5.10 | EXTERNAL | | | COUNT | performed at [facility];[address] | M/uL | LAB | | | | [address];[place] | | | | | | [address] | | | | + + + + + -+ | Hgb | 16.6 (H)Comment: Testing | 11.3 - 15.5 | EXTERNAL | | | | performed at [facility];[address] | g/dL | LAB | | | | [address];[place] | | | | | | [address] | | | | + + + + + -+ | Hematocrit, | 48.3 (H)Comment: Testing | 34.0 - 46.0 % | EXTERNAL | | | POC | performed at [facility];[address] | | LAB | | | | [address];[place] | | | | | | [address] | | | | + + + + + -+ | MCV | 89.8Comment: Testing | 80.0 - 100.0 fl | EXTERNAL | | | | performed at [facility];[address] | | LAB | | | | [address];[place] | | | | | | [address] | | | | + + + + + -+ | MCH | 30.9Comment: Testing | 27.0 - 34.0 pg | EXTERNAL | | | | performed at [facility];[address] | | LAB | | | | [address];[place] | | | | | | [address] | | | | + + + + + -+ | MCHC | 34.4Comment: Testing | 32.0 - 35.5 | EXTERNAL | | | | performed at [facility];[address] | g/dL | LAB | | | | [address];[place] | | | | | | [address] | | | | + + + + + -+ | RDW-CV | 42.4Comment: Testing | 37 - 53 fl | EXTERNAL | | | | performed at [facility];[address] | | LAB | | | | [address];[place] | | | | | | [address] | | | | + + + + + -+ | Platelet | 346Comment: Testing | 150 - 400 K/uL | EXTERNAL | | | Count | performed at [facility];[address] | | LAB | | | Plasma | [address];[place] | | | | | | [address] | | | | + + + + + -+ | MPV | 8.1Comment: Testing | fl | EXTERNAL | | | | performed at [facility];[address] | | LAB | | | | [address];[place] | | | | | | [address] | | | | + + + + + -+ | Differentia | AUTOMATEDComment: | | EXTERNAL | | | l Type | Testing performed at | | LAB | | | | [facility];[address] | [address];[place] [address] | | | | + + + + + -+ | % Segmented | 78.90Comment: Testing | % | EXTERNAL | | | | performed at [facility];[address] | | LAB | | | Neutrophils | [address];[place] | | | | | | [address] | | | | + + + + + -+ | % | 14.89Comment: Testing | % | EXTERNAL | | | Lymphocytes | performed at [facility];[address] | | LAB | | | | [address];[place] | | | | | | [address] | | | | + + + + + -+ | % Monocytes | 5.61Comment: Testing | % | EXTERNAL | | | | performed at [facility];[address] | | LAB | | | | [address];[place] | | | | | | [address] | | | | + + + + + -+ | % | 0.05Comment: Testing | % | EXTERNAL | | | Eosinophils | performed at [facility];[address] | | LAB | | | | [address];[place] | | | | | | [address] | | | | + + + + + -+ | % Basophils | 0.55Comment: Testing | % | EXTERNAL | | | | performed at [facility];[address] | | LAB | | | | [address];[place] | | | | | | [address] | | | | + + + + + -+ | Absolute | 12.53 (H)Comment: | 1.90 - 7.40 | EXTERNAL | | | Segmented | Testing performed at | K/uL | LAB | | | Neutrophils | [facility];[address] | | | [address];[place] [address] | | | | + + + + + -+ | Absolute | 2.37Comment: Testing | 1.00 - 3.90 | EXTERNAL | | | Lymphocytes | performed at [facility];[address] | K/uL | LAB | | | | [address];[place] | | | | | | [address] | | | | + + + + + -+ | Absolute | 0.89 (H)Comment: Testing | 0.00 - 0.80 | EXTERNAL | | | Monocytes | performed at [facility];[address] | K/uL | LAB | | | | [address];[place] | | | | | | [address] | | | | + + + + + -+ | Absolute | 0.01Comment: Testing | 0.00 - 0.50 | EXTERNAL | | | Eosinophils | performed at [facility];[address] | K/uL | LAB | | | | [address];[place] | | | | | | [address] | | | | + + + + + -+ | Absolute | 0.09Comment: Testing | 0.00 - 0.10 | EXTERNAL | | | Basophils | performed at [facility];[address] | K/uL | LAB | | | | [address];[place] | | | | | | [address] | | | | + + + + + -+ | Na | 133 (L)Comment: Testing | 135 - 145 | EXTERNAL | | | | performed at [facility];[address] | mmol/L | LAB | | | | [address];[place] | | | | | | [address] | | | | + + + + + -+ | K | 3.3 (L)Comment: Testing | 3.5 - 4.9 | EXTERNAL | | | | performed at [facility];[address] | mmol/L | LAB | | | | [address];[place] | | | | | | [address] | | | | + + + + + -+ | Cl | 100Comment: Testing | 99 - 109 mmol/L | EXTERNAL | | | | performed at [facility];[address] | | LAB | | | | [address];[place] | | | | | | [address] | | | | + + + + + -+ | CO2 | 22 (L)Comment: Testing | 23 - 32 mmol/L | EXTERNAL | | | | performed at [facility];[address] | | LAB | | | | [address];[place] | | | | | | [address] | | | | + + + + + -+ | Anion Gap | 14Comment: Testing | 5 - 20 mmol/L | EXTERNAL | | | | performed at [facility];[address] | | LAB | | | | [address];[place] | | | | | | [address] | | | | + + + + + -+ | Glucose, | 298 (H)Comment: Testing | 65 - 99 mg/dL | EXTERNAL | | | Fasting | performed at [facility];[address] | | LAB | | | | [address];[place] | | | | | | [address] | | | | + + + + + -+ | BUN | 13Comment: Testing | 8 - 25 mg/dL | EXTERNAL | | | | performed at [facility];[address] | | LAB | | | | [address];[place] | | | | | | [address] | | | | + + + + + -+ | Creatinine | 0.84Comment: Testing | 0.50 - 1.00 | EXTERNAL | | | | performed at [facility];[address] | mg/dL | LAB | | | | [address];[place] | | | | | | [address] | | | | + + + + + -+ | BUN/Creatin | 15Comment: Testing | | EXTERNAL | | | ine Ratio | performed at [facility];[address] | | LAB | | | | [address];[place] | | | | | | [address] | | | | + + + + + -+ | Calcium | 9.1Comment: Testing | 8.5 - 10.5 | EXTERNAL | | | | performed at [facility];888 | mg/dL | LAB | | | | [address];[place] | | | | | | [address] | | | | + + + + + -+ | Protein, | 7.3Comment: Testing | 6.3 - 8.2 g/dL | EXTERNAL | | | Total | performed at [facility];[address] | | LAB | | | | [address];[place] | | | | | | [address] | | | | + + + + + -+ | Albumin | 3.6Comment: Testing | 3.3 - 4.8 g/dL | EXTERNAL | | | | performed at [facility];[address] | | LAB | | | | [address];[place] | | | | | | [address] | | | | + + + + + -+ | Globulin | 3.6Comment: Testing | 1.3 - 4.9 g/dL | EXTERNAL | | | | performed at [facility];[address] | | LAB | | | | [address];[place] | | | | | | [address] | | | | + + + + + -+ | A/G Ratio | 1.0Comment: Testing | 1.0 - 2.4 | EXTERNAL | | | | performed at [facility];[address] | | LAB | | | | [address];[place] | | | | | | [address] | | | | + + + + + -+ | Bilirubin | 0.4Comment: Testing | 0.1 - 1.5 mg/dL | EXTERNAL | | | Total | performed at [facility];[address] | | LAB | | | | [address];[place] | | | | | | [address] | | | | + + + + + -+ | ALP, | 105Comment: Testing | 35 - 115 U/L | EXTERNAL | | | External | performed at [facility];[address] | | LAB | | | | [address];[place] | | | | | | [address] | | | | + + + + + -+ | AST | 23Comment: Testing | 10 - 45 U/L | EXTERNAL | | | | performed at [facility];[address] | | LAB | | | | [address];[place] | | | | | | [address] | | | | + + + + + -+ | ALT | 35Comment: Testing | 10 - 65 U/L | EXTERNAL | | | | performed at [facility];[address] | | LAB | | | | [address];[place] | | | | | | [address] | | | | + + + [...] | | | | | | at [facility];[address] | | | | | | [address];[place] [address] | | | | + + + + + -+ | CK, Total | 52Comment: Testing | 30 - 240 U/L | EXTERNAL | | | | performed at [facility];[address] | | LAB | | | | [address];[place] | | | | | | [address] | | | | + + + [...] | | | | | performed at [facility];[address] | | | | | | [address];[place] | | | | | | [address] | | | | + + + + + -+ | aPTT, | 26Comment: Testing | 23 - 32 seconds | EXTERNAL | | | Patient | performed at [facility];[address] | | LAB | | | | [address];[place] | | | | | | [address] | | | | + + + + + -+ | CK-MB | 1.1Comment: Testing | 0.5 - 3.6 ng/mL | EXTERNAL | | | | performed at [facility];[address] | | LAB | | | | [address];[place] | | | | | | [address] | | | | + + + [...] EXTERNAL | | | | performed at [facility] | | LAB | | | | [facility], [place] | | | | | | [address] | | | | + + + [...] EXTERNAL | | | | performed at [facility] | | LAB | | | | [address] [facility];[place] | | | | | | [address] | | | | + + + [...] (500), | | | | | | 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
--- OUTSIDE RECORDS SUMMARY | ~2019-04-09 | XMS | Encounter Summary ---
Demographics + + + | Address | [address] | | | [place] [address] | + + + | Home Phone | | + + + | Preferred Language | Unknown | + + + | Marital Status | | + + + | Sikh Affiliation | Unknown | + + + | Race | Unknown | + + + | Ethnic Group | Unknown | + + + Author + + + | Author | [facility] | | | and [place] | + + + | Organization | [facility] | | | and [place] [...] Team Providers + +------+ + | Care Pouncing Lathe Operator Name | Role | Phone | + +------+ + PCP | Unavailable | + +------+ + Encounter Details +--------+ + + + + | Date | Type | Department | Care Team | Description | +--------+ + + + + | 03/04/ | Hospital | [facility] | Consuelo Fishman | Intractable | | 2016 - | Encounter | [facility] | MD [address] | abdominal pain; | | | | CARE FLOOR [address] | [address] | Gastritis and | | 03/08/ | | [address] | [place] [address] | duodenitis; | | 2016 | | [place] | [phone] | Gastroesophageal | | | | [phone] | | reflux disease | | | | [phone] | | without esophagitis; | | | [...] | | | | | insulin ([facility]); | | | | | | [...] Date of Service: 03/08/16 1523 Status: Signed Grocery Deliverer: Clementine Broussard MD (Physician) [facility] Service: Hospitalist Discharge Summary Date of Admission: [...] Mar 04 2016 9:59PM Referring Provider Line: [phone] ID: 108 Ct Chest Non-contrast 03/05/[address] finding on noncontrast evaluation of the chest. The lungs are clear . RADIA Electronically signed by Nick Williamson MD on Mar 05 2016 2:47AM Referring Provider Line: [phone] ID: 107 Ct Abdomen Pelvis With Contrast [...] 05 2016 1:22AM Ref erring Provider Line: [phone] ID: [id number] Echo Cardiac Adult Complete 03/05/2016 [...] Follow up: Ian Witt MD [address] [facility] [address] Schedule an appointment as soon as possible for a visit in 2 weeks post hospital follow up DO CARLOS Bowers [address] [place] [address] Schedule an appointment as soon as possible [...] Commonly known as: ULTRAM vitamin D2 (ergocalciferol) 40791 UNITS capsule Refills: 0 Where to Get [...] documentation of disc harge summary. Dictation and powder guard or software, [employer], used which may contain error for similar [...] Date of Service: 03/08/16 1522 Status: Signed Grocery Deliverer: Heather Ziegler RN (Registered Nurse) Patient signed [...] Date of Service: 03/08/16 1310 Status: Signed Grocery Deliverer: Rochelle Amaya RN (Registered Nurse) 03/08/16 1310 [...] Notes by Fermin Weston MD at 03/07/16 2981 Author: Fermin Weston MD Service: (none) Author Type: Physician Filed: 03/07/16 4770 Date of Service: 03/07/161248 Status: Signed Grocery Deliverer: Fermin Weston MD (Physician) [facility] Service: Gastroenterology Progress Note Hospital Day: LOS: [...] Mar 04 2016 9:59PM Referring Provider Line: [phone] ID: 108 Ct Chest Non-contrast 03/05/[address] finding on noncontrast evaluation of the chest. The lungs are clear . RADIA Electronically signed by Nick Williamson MD on Mar 05 2016 2:47AM Referring Provider Line: [phone] ID: 107 Ct Abdomen Pelvis With Contrast [...] 05 2016 1:22AM Ref erring Provider Line: [phone] ID: [id number] Echo Cardiac Adult Complete 03/05/2016 [...] Status: Full Code FERMIN WESTON MD 03/07/2016 Angle Sol MD - 03/07/2016 8:26 AM PSTFormatting of this note might be different from the lee girenny. Progress Notes by Clementine Broussard MD at 03/07/16825 Author: Clementine Broussard MD Service: Hospitalist Author Type: Physician Filed: 03/07/1649 Date of Service: 03/07/16825 Status: Signed Grocery Deliverer: Clementine Broussard MD (Physician) [facility] Service: Hospitalist Progress Note Hospital Day: LOS: [...] AM COLOR UA STRAW CLARITY CLEAR Specific [place], UA 1.002 - 1.030 1.033 (H) Leukocyes, [...] Mar 04 2016 9:59PM Referring Provider Line: [phone] ID: 108 Ct Chest Non-contrast 03/05/[address] finding on noncontrast evaluation of the chest. The lungs are clear . RADIA Electronically signed by Nick Williamson MD on Mar 05 2016 2:47AM Referring Provider Line: [phone] ID: 107 Ct Abdomen Pelvis With Contrast [...] 05 2016 1:22AM Ref erring Provider Line: [phone] ID: [id number] PROBLEM LIST Principal Problem: Epigastric [...] Inpatient Code Status: Full Code Dictation and powder guard or software, [employer], used which may contain error for similar s ounding words even after review. Personal communication requested for any clarification. CLEMENTINE BROUSSARD MD 03/07/2016 8:26 AM onversion Transact ion, Provider Unknown - 03/06/2016 3:16 PM PSTFormatting of this note might be different fr om the original. Progress Notes by Emily Pearson RD at 03/06/16 0427 Author: Emily Pearson RD Service: (none) Author Type: Registered Dietitian Filed: 03/06/161516 Date of Service: 03/06/161515 Status: Signed Grocery Deliverer: Emily Pearson RD (Rail Bender) 03/06/16 0915 Subjective Timepoint Admit Pt c/o Pt triggered [...] Estimated Energy Needs Total Energy Estimated Needs 5032-1002 kcal Method for Estimating Needs 25-30 kcal/kg/day [...] 03/06/16830 Date of Service: 03/06/16820 Status: Signed Grocery Deliverer: Clementine Broussard MD (Physician) [facility] Service: Hospitalist Progress Note Hospital Day: LOS: [...] AM COLOR UA STRAW CLARITY CLEAR Specific [place], UA 1.002 - 1.030 1.033 (H) Leukocyes, [...] Mar 04 2016 9:59PM Referring Provider Line: [phone] ID: 108 Ct Chest Non-contrast 03/05/[address] finding on noncontrast evaluation of the chest. The lungs are clear . RADIA Electronically signed by Nick Williamson MD on Mar 05 2016 2:47AM Referring Provider Line: [phone] ID: 107 Ct Abdomen Pelvis With Contrast [...] 05 2016 1:22AM Ref erring Provider Line: [phone] ID: [id number] PROBLEM LIST Principal Problem: Epigastric [...] Inpatient Code Status: Full Code Dictation and powder guard or software, [employer], used which may contain error for similar [...] 03/06/16345 Date of Service: 03/06/16344 Status: Signed Grocery Deliverer: Curt L Caleb, RN (Registered Nurse) Pt BP in the 200's IV Hydralazine given will recheck again in 30 mins. Curt Ellis RN Clementine Sol MD - 03/05/2016 3:56 PM PST Progress Notes by Clementine Broussard MD at 03/05/16 3004 Author: Clementine Broussard MD Service: Hospitalist Author Type: Physician Filed: 03/05/16 0721 Date of Service: 03/05/16 1038 Status: Signed Grocery Deliverer: Clementine Broussard MD (Physician) [facility] Service: Hospitalist Progress Note Hospital Day: LOS: [...] AM COLOR UA STRAW CLARITY CLEAR Specific [place], UA 1.002 - 1.030 1.033 (H) Leukocyes, [...] 2-view chest radiography. RADIA Electronically signed by Klevin Hopson MD on Mar 04 2016 9:59PM Referring Provider Line: [phone] ID: 108 Ct Chest Non-contrast 03/05/[address] finding on noncontrast evaluation of the chest. The lungs are clear . RADIA Electronically signed by Nick Williamson MD on Mar 05 2016 2:47AM Referring Provider Line: [phone] ID: 107 Ct Abdomen Pelvis With Contrast [...] 05 2016 1:22AM Ref erring Provider Line: [phone] ID: [id number] PROBLEM LIST Principal Problem: Epigastric [...] Inpatient Code Status: Full Code Dictation and powder guard or software, [employer], used which may contain error for similar s ounding words even after review. Personal communication requested for any clarification. CLEMENTINE BROUSSARD MD 03/05/2016 3:57 PM onversion Transact ion, Provider Unknown - 03/05/2016 3:38 PM PSTFormatting of this note might be different fr om the original. Nurse Progress Note by Gissell Rice RN at 03/05/16 3630 Author: Gissell Rice RN Service: (none) Author Type: Registered Nurse Filed: 03/05/16 8345 Date of Service: 03/05/161537 Status: Signed Grocery Deliverer: Gissell Rice RN (Registered Nurse) Patient continues [...] Author: RONI Alvarenga Service: (none) Author Type: Thread Trimmer Filed: 03/05/16813 Date of Service: 03/05/16812 Status: Signed Grocery Deliverer: RONI Alvarenga (Thread Trimmer) 03/05/16799 Discharge Planning Evaluation Admitting Diagnosis NSTEMI Readmission No Living Arrangements Spouse/significant other Support Systems Spouse/significant other Type of Residence Private residence Independent with ADL's Yes Independent with Mobility Yes Home Care Services No Mental Status Oriented Prior functional status indpt, home with spouse, 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 Anticipated Discharge Plan Post Acute [...] iadls, no dme, 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 [employer], no needs anticipated for DCP at this [...] 03/05/16534 Date of Service: 03/05/16534 Status: Signed Grocery Deliverer: Ximena Florez RPH (Pharmacist) Clinical Pharmacy Note: [...] | | | Fingerstick | performed at [facility];[address] | | LAB | | | | [address];[place] | | | | | | [address] | | | | + + + [...] | | | | | performed at [facility], [address] | | | | | | [facility] | | | | | | [place] [address] | | | | + + + [...] | | | | | performed at [facility], [address] | | | | | | [place] | | | | | | [place] [address] | | | | + + + [...] | | | | ting performed at [facility], | | | | | | [address] | | | | | | [place] [address] | | | | + + + [...] | | e, Free | performed at [facility], [address] | nmol/L | LAB | | | | [address] [place] | | | | | | [place] [address] | | | | + + + [...] [place] | | | | | | [address] | | | | + + + [...] | | | | | performed at [facility], [address] | | | | | | [facility] | | | | | | [place] [address] | | | | + + + [...] | | | Fingerstick | performed at [facility] | | LAB | | | | [address];[place], [place] | | | | | | [address] | | | | + + + [...] K/uL | LAB | | | | [facility], [address] | | | | | | [place] | | | | | | [address] | | | | + + + + + + | RED CELL | 5.11 (H)Comment: Testing | 3.70 - 5.10 | EXTERNAL | | | COUNT | performed at [facility], [address] | M/uL | LAB | | | | [address], | | | | | | [place] [address] | | | | + + + + + + | Hgb | 15.8 (H)Comment: Testing | 11.3 - 15.5 | EXTERNAL | | | | performed at [facility], [address] | g/dL | LAB | | | | [address], | | | | | | [place] [address] | | | | + + + + + + | Hematocrit, | 46.6 (H)Comment: Testing | 34.0 - 46.0 % | EXTERNAL | | | POC | performed at [facility], [address] | | LAB | | | | [address], | | | | | | [place] [address] | | | | + + + + + + | MCV | 91.3Comment: Testing | 80.0 - 100.0 fl | EXTERNAL | | | | performed at [facility], [address] | | LAB | | | | [address], | | | | | | [place] [address] | | | | + + + + + + | MCH | 30.9Comment: Testing | 27.0 - 34.0 pg | EXTERNAL | | | | performed at [facility], [address] | | LAB | | | | [address], | | | | | | [place] [address] | | | | + + + + + + | MCHC | 33.9Comment: Testing | 32.0 - 35.5 | EXTERNAL | | | | performed at [facility], [address] | g/dL | LAB | | | | [address], | | | | | | [place] [address] | | | | + + + + + + | RDW-CV | 41.1Comment: Testing | 37 - 53 fl | EXTERNAL | | | | performed at [facility], [address] | | LAB | | | | [address], | | | | | | [place] [address] | | | | + + + + + + | Platelet | 319Comment: Testing | 150 - 400 K/uL | EXTERNAL | | | Count | performed at [facility], [address] | | LAB | | | Plasma | [address], | | | | | | [place] [address] | | | | + + + + + + | MPV | 8.3Comment: Testing | fl | EXTERNAL | | | | performed at [facility], [address] | | LAB | | | | [address], | | | | | | [place] [address] | | | | + + + + + + | Differentia | AUTOMATEDComment: | | EXTERNAL | | | l Type | Testing performed at | | LAB | | | | [facility], [address] | | | | | | [place] | | | | | | [address] | | | | + + + + + + | % Segmented | 60.06Comment: Testing | % | EXTERNAL | | | | performed at [facility], [address] | | LAB | | | Neutrophils | [address], | | | | | | [place] [address] | | | | + + + + + + | % | 28.48Comment: Testing | % | EXTERNAL | | | Lymphocytes | performed at [facility], [address] | | LAB | | | | [address], | | | | | | [place] [address] | | | | + + + + + + | % Monocytes | 10.95Comment: Testing | % | EXTERNAL | | | | performed at [facility], [address] | | LAB | | | | [address], | | | | | | [place] [address] | | | | + + + + + + | % | 0.34Comment: Testing | % | EXTERNAL | | | Eosinophils | performed at [facility], [address] | | LAB | | | | [address], | | | | | | [place] [address] | | | | + + + + + + | % Basophils | 0.17Comment: Testing | % | EXTERNAL | | | | performed at [facility], [address] | | LAB | | | | [address], | | | | | | [place] [address] | | | | + + + + + + | Absolute | 6.65Comment: Testing | 1.90 - 7.40 | EXTERNAL | | | Segmented | performed at [facility], [address] | K/uL | LAB | | | Neutrophils | [address], | | | | | | [place] [address] | | | | + + + + + + | Absolute | 3.15Comment: Testing | 1.00 - 3.90 | EXTERNAL | | | Lymphocytes | performed at [facility], [address] | K/uL | LAB | | | | [address], | | | | | | [place] [address] | | | | + + + + + + | Absolute | 1.21 (H)Comment: Testing | 0.00 - 0.80 | EXTERNAL | | | Monocytes | performed at [facility], [address] | K/uL | LAB | | | | [address], | | | | | | [place] [address] | | | | + + + + + + | Absolute | 0.04Comment: Testing | 0.00 - 0.50 | EXTERNAL | | | Eosinophils | performed at [facility], [address] | K/uL | LAB | | | | [address], | | | | | | [place] [address] | | | | + + + + + + | Absolute | 0.02Comment: Testing | 0.00 - 0.10 | EXTERNAL | | | Basophils | performed at [facility], [address] | K/uL | LAB | | | | [address], | | | | | | [place] [address] | | | | + + + [...] EXTERNAL | | | | performed at [facility], [address] | | LAB | | | | [address], | | | | | | [place] [address] | | | | + + + [...] EXTERNAL | | | | performed at [facility];[address] | | LAB | | | | [address];[place] | | | | | | [address] | | | | + + + [...] | | | | | [place] [address] | | | | + + + + + + | K | 3.2 (L)Comment: Testing | 3.5 - 4.9 | EXTERNAL | | | | performed at [facility], [address] | mmol/L | LAB | | | | [address], | | | | | | [place] [address] | | | | + + + + + + | Cl | 102Comment: Testing | 99 - 109 mmol/L | EXTERNAL | | | | performed at [facility], [address] | | LAB | | | | [address], | | | | | | [place] [address] | | | | + + + + + + | CO2 | 28Comment: Testing | 23 - 32 mmol/L | EXTERNAL | | | | performed at [facility], [address] | | LAB | | | | [address], | | | | | | [place] [address] | | | | + + + + + + | Anion Gap | 12Comment: Testing | 5 - 20 mmol/L | EXTERNAL | | | | performed at [facility], [address] | | LAB | | | | [address], | | | | | | [place] [address] | | | | + + + + + + | Glucose, | 138 (H)Comment: Testing | 65 - 99 mg/dL | EXTERNAL | | | Fasting | performed at [facility], [address] | | LAB | | | | [address], | | | | | | [place] [address] | | | | + + + + + + | BUN | 13Comment: Testing | 8 - 25 mg/dL | EXTERNAL | | | | performed at [facility], [address] | | LAB | | | | [address], | | | | | | [place] [address] | | | | + + + + + + | Creatinine | 0.7Comment: Testing | 0.50 - 1.00 | EXTERNAL | | | | performed at [facility], [address] | mg/dL | LAB | | | | [address], | | | | | | [place] [address] | | | | + + + + + + | BUN/Creatin | 19Comment: Testing | | EXTERNAL | | | ine Ratio | performed at [facility], [address] | | LAB | | | | [address], | | | | | | [place] [address] | | | | + + + + + + | Calcium | 9.2Comment: Testing | 8.5 - 10.5 | EXTERNAL | | | | performed at [facility], [address] | mg/dL | LAB | | | | [address], | | | | | | [place] [address] | | | | + + + + + + | Protein, | 6.2 (L)Comment: Testing | 6.3 - 8.2 g/dL | EXTERNAL | | | Total | performed at [facility], [address] | | LAB | | | [address], | | | | | | [place] [address] | | | | + + + + + + | Albumin | 3.2 (L)Comment: Testing | 3.3 - 4.8 g/dL | EXTERNAL | | | | performed at [facility], [address] | | LAB | | | [address], | | | | | | [place] [address] | | | | + + + + + + | Globulin | 3.0Comment: Testing | 1.3 - 4.9 g/dL | EXTERNAL | | | | performed at [facility], [address] | | LAB | | | | [address], | | | | | | [place] [address] | | | | + + + + + + | A/G Ratio | 1.1Comment: Testing | 1.0 - 2.4 | EXTERNAL | | | | performed at [facility], [address] | | LAB | | | [address], | | | | | | [place] [address] | | | | + + + + + + | Bilirubin | 0.6Comment: Testing | 0.1 - 1.5 mg/dL | EXTERNAL | | | Total | performed at [facility], [address] | | LAB | | | | [address], | | | | | | [place] [address] | | | | + + + + + + | ALP, | 68Comment: Testing | 35 - 115 U/L | EXTERNAL | | | External | performed at [facility], [address] | | LAB | | | | [address], | | | | | | [place] [address] | | | | + + + + + + | AST | 13Comment: Testing | 10 - 45 U/L | EXTERNAL | | | | performed at [facility], [address] | | LAB | | | | [address], | | | | | | [place] [address] | | | | + + + + + + | ALT | 16Comment: Testing | 10 - 65 U/L | EXTERNAL | | | | performed at [facility], [address] | | LAB | | | | [address], | | | | | | [place] [address] | | | | + + + [...] W | | | | | | [address], | | | | | | [place] [address] | | | | + + + [...] | | | Fingerstick | performed at [facility];[address] | | LAB | | | | [address];[place], [place] | | | | | | [address] | | | | + + + [...] EXTERNAL | | | | performed at [facility] | | LAB | | | | [address];[place] | | | | | | [address] | | | | + + + + + + | Clarity | CLEARComment: Testing | | EXTERNAL | | | | performed at [facility];[address] | | LAB | | | | [address];[place] | | | | | | [address] | | | | + + + + + + | Specific | 1.010Comment: Testing | 1.002 - 1.030 | EXTERNAL | | | [place] | performed at [facility];[address] | | LAB | | | | [address];[place] | | | | | | [address] | | | | + + + + + + | Leukocyte | NEGATIVEComment: Testing | | EXTERNAL | | | Esterase, | performed at [facility];[address] | | LAB | | | Urine | [address];[place] | | | | | | [address] | | | | + + + + + + | Nitrite, | NEGATIVEComment: Testing | | EXTERNAL | | | Urine | performed at [facility];[address] | | LAB | | | | [address];[place] | | | | | | [address] | | | | + + + + + + | Urobilinoge | NORMALComment: Testing | mg/dL | EXTERNAL | | | n, Urine | performed at [facility];[address] | | LAB | | | | [address];[place] | | | | | | [address] | | | | + + + + + + | Protein, | NEGATIVEComment: Testing | mg/dL | EXTERNAL | | | Urine | performed at [facility];[address] | | LAB | | | | [address];[place] | | | | | | [address] | | | | + + + + + + | pH, Urine | 6.0Comment: Testing | 5.0 - 8.0 | EXTERNAL | | | | performed at [facility];[address] | | LAB | | | | [address];[place] | | | | | | [address] | | | | + + + + + + | Blood, | SMALL (A)Comment: | | EXTERNAL | | | Urine | Testing performed at | | LAB | | | | [facility];[address];[place] [address] | | | | + + + + + + | Ketones | NEGATIVEComment: Testing | mg/dL | EXTERNAL | | | | performed at [facility];[address] | | LAB | | | | [address];[place] | | | | | | [address] | | | | + + + + + + | Bilirubin, | NEGATIVEComment: Testing | | EXTERNAL | | | Urine | performed at [facility];[address] | | LAB | | | | [address];[place] | | | | | | [address] | | | | + + + + + + | Glucose, | 50 (A)Comment: Testing | mg/dL | EXTERNAL | | | Urine | performed at [facility];[address] | | LAB | | | | [address];[place] | | | | | | [address] | | | | + + + + + + | WBC, UA | 0-2Comment: Testing | 0 - 5 /hpf | EXTERNAL | | | | performed at [facility];[address] | | LAB | | | | [address];[place] | | | | | | [address] | | | | + + + + + + | RBC, UA | 3-5Comment: Testing | 0 - 5 /hpf | EXTERNAL | | | | performed at [facility];[address] | | LAB | | | | [address];[place] | | | | | | [address] | | | | + + + + + + | Bacteria, | 1+ (A)Comment: Testing | | EXTERNAL | | | UA | performed at [facility];[address] | | LAB | | | | [address];[place] | | | | | | [address] | | | | + + + + + + | Epithelial | 15Comment: Testing | /lpf | EXTERNAL | | | Cells | performed at [facility];[address] | | LAB | | | | [address];[place], [place] | | | | | | [address] | | | | + + + [...] | | | Fingerstick | performed at [facility];[address] | | LAB | | | | [address];[place], [place] | | | | | | [address] | | | | + + + [...] | | | Fingerstick | performed at [facility];[address] | | LAB | | | | [address];[place], [place] | | | | | | [address] | | | | + + + [...] | | | Fingerstick | performed at [facility];[address] | | LAB | | | | [address];[place] | | | | | | [address] | | | | + + + [...] | | | | [facility], [address] [facility] | | | | | | [place] | | | | | | [address] | | | | + + + + + + | RED CELL | 5.55 (H)Comment: Testing | 3.70 - 5.10 | EXTERNAL | | | COUNT | performed at [facility], [address] | M/uL | LAB | | | | [address], | | | | | | [place] [address] | | | | + + + + + + | Hgb | 17.1 (H)Comment: Testing | 11.3 - 15.5 | EXTERNAL | | | | performed at [facility], [address] | g/dL | LAB | | | | [address], | | | | | | [place] [address] | | | | + + + + + + | Hematocrit, | 50.7 (H)Comment: Testing | 34.0 - 46.0 % | EXTERNAL | | | POC | performed at [facility], [address] | | LAB | | | | [address], | | | | | | [place] [address] | | | | + + + + + + | MCV | 91.3Comment: Testing | 80.0 - 100.0 fl | EXTERNAL | | | | performed at [facility], [address] | | LAB | | | | [address], | | | | | | [place] [address] | | | | + + + + + + | MCH | 30.7Comment: Testing | 27.0 - 34.0 pg | EXTERNAL | | | | performed at [facility], [address] | | LAB | | | | [address], | | | | | | [place] [address] | | | | + + + + + + | MCHC | 33.7Comment: Testing | 32.0 - 35.5 | EXTERNAL | | | | performed at [facility], [address] | g/dL | LAB | | | | [address], | | | | | | [place] [address] | | | | + + + + + + | RDW-CV | 41.6Comment: Testing | 37 - 53 fl | EXTERNAL | | | | performed at [facility], [address] | | LAB | | | | [address], | | | | | | [place] [address] | | | | + + + + + + | Platelet | 335Comment: Testing | 150 - 400 K/uL | EXTERNAL | | | Count | performed at [facility], [address] | | LAB | | | Plasma | [address], | | | | | | [place] [address] | | | | + + + + + + | MPV | 8.8Comment: Testing | fl | EXTERNAL | | | | performed at [facility], [address] | | LAB | | | | [address], | | | | | | [place] [address] | | | | + + + + + + | Differentia | AUTOMATEDComment: | | EXTERNAL | | | l Type | Testing performed at | | LAB | | | | [facility], [address] | | | | | | [place] | | | | | | [id number] | | | | + + + + + + | % Segmented | 75.31Comment: Testing | % | EXTERNAL | | | | performed at [facility], [address] | | LAB | | | Neutrophils | [address], | | | | | | [place] [address] | | | | + + + + + + | % | 17.39Comment: Testing | % | EXTERNAL | | | Lymphocytes | performed at [facility], [address] | | LAB | | | | [address], | | | | | | [place] [address] | | | | + + + + + + | % Monocytes | 7.05Comment: Testing | % | EXTERNAL | | | | performed at [facility], [address] | | LAB | | | | [address], | | | | | | [place] [address] | | | | + + + + + + | % | 0.06Comment: Testing | % | EXTERNAL | | | Eosinophils | performed at [facility], [address] | | LAB | | | | [address], | | | | | | [place] [address] | | | | + + + + + + | % Basophils | 0.19Comment: Testing | % | EXTERNAL | | | | performed at [facility], [address] | | LAB | | | | [address], | | | | | | [place] [address] | | | | + + + + + + | Absolute | 10.82 (H)Comment: | 1.90 - 7.40 | EXTERNAL | | | Segmented | Testing performed at | K/uL | LAB | | | Neutrophils | [facility], [address] | | | | | | [place] | | | | | | [address] | | | | + + + + + + | Absolute | 2.50Comment: Testing | 1.00 - 3.90 | EXTERNAL | | | Lymphocytes | performed at [facility], [address] | K/uL | LAB | | | | [address] [place], | | | | | | [place] [address] | | | | + + + + + + | Absolute | 1.01 (H)Comment: Testing | 0.00 - 0.80 | EXTERNAL | | | Monocytes | performed at [facility], [address] | [address] | LAB | | | | [address], | | | | | | [place] [address] | | | | + + + + + + | Absolute | 0.01Comment: Testing | 0.00 - 0.50 | EXTERNAL | | | Eosinophils | performed at [facility], [address] | K/uL | LAB | | | | [address], | | | | | | [place] [address] | | | | + + + + + + | Absolute | 0.03Comment: Testing | 0.00 - 0.10 | EXTERNAL | | | Basophils | performed at [facility], [address] | K/uL | LAB | | | | [address] [place], | | | | | | [place] [address] | | | | + + + [...] EXTERNAL | | | | performed at [facility], [address] | | LAB | | | | [address], | | | | | | [place] [address] | | | | + + + [...] | | | | | [place] [address] | | | | + + + + + + | K | 3.0 (L)Comment: Testing | 3.5 - 4.9 | EXTERNAL | | | | performed at [facility], [address] | mmol/L | LAB | | | | [address], | | | | | | [place] [address] | | | | + + + + + + | Cl | 99Comment: Testing | 99 - 109 mmol/L | EXTERNAL | | | | performed at [facility], [address] | | LAB | | | | [address], | | | | | | [place] [address] | | | | + + + + + + | CO2 | 24Comment: Testing | 23 - 32 mmol/L | EXTERNAL | | | | performed at [facility], [address] | | LAB | | | | [address], | | | | | | [place] [address] | | | | + + + + + + | Anion Gap | 16Comment: Testing | 5 - 20 mmol/L | EXTERNAL | | | | performed at [facility], [address] | | LAB | | | | [address], | | | | | | [place], [place] [address] | | | | + + + + + + | Glucose, | 172 (H)Comment: Testing | 65 - 99 mg/dL | EXTERNAL | | | Fasting | performed at [facility], [address] | | LAB | | | | [address], | | | | | | [place], [place] [address] | | | | + + + + + + | BUN | 12Comment: Testing | 8 - 25 mg/dL | EXTERNAL | | | | performed at [facility], [address] | | LAB | | | | [address], | | | | | | [place] [address] | | | | + + + + + + | Creatinine | 0.6Comment: Testing | 0.50 - 1.00 | EXTERNAL | | | | performed at [facility], [address] | mg/dL | LAB | | | | [address], | | | | | | [place] [address] | | | | + + + + + + | BUN/Creatin | 20Comment: Testing | | EXTERNAL | | | ine Ratio | performed at [facility], [address] | | LAB | | | | [address], | | | | | | [place] [address] | | | | + + + + + + | Calcium | 9.5Comment: Testing | 8.5 - 10.5 | EXTERNAL | | | | performed at [facility], [address] | mg/dL | LAB | | | | [address], | | | | | | [place] [address] | | | | + + + + + + | Protein, | 6.7Comment: Testing | 6.3 - 8.2 g/dL | EXTERNAL | | | Total | performed at [facility], [address] | | LAB | | | | [address], | | | | | | [place] [address] | | | | + + + + + + | Albumin | 3.3Comment: Testing | 3.3 - 4.8 g/dL | EXTERNAL | | | | performed at [facility], [address] | | LAB | | | | [address], | | | | | | [place] [address] | | | | + + + + + + | Globulin | 3.4Comment: Testing | 1.3 - 4.9 g/dL | EXTERNAL | | | | performed at [facility], [address] | | LAB | | | | [address], | | | | | | [place] [address] | | | | + + + + + + | A/G Ratio | 1.0Comment: Testing | 1.0 - 2.4 | EXTERNAL | | | | performed at [facility], [address] | | LAB | | | | [address], | | | | | | [place] [address] | | | | + + + + + + | Bilirubin | 0.5Comment: Testing | 0.1 - 1.5 mg/dL | EXTERNAL | | | Total | performed at [facility], [address] | | LAB | | | | [address], | | | | | | [place] [address] | | | | + + + + + + | ALP, | 80Comment: Testing | 35 - 115 U/L | EXTERNAL | | | External | performed at [facility], [address] | | LAB | | | | [address], | | | | | | [place] [address] | | | | + + + + + + | AST | 11Comment: Testing | 10 - 45 U/L | EXTERNAL | | | | performed at [facility], [address] | | LAB | | | | [address], | | | | | | [place] [address] | | | | + + + + + + | ALT | 14Comment: Testing | 10 - 65 U/L | EXTERNAL | | | | performed at [facility], [address] | | LAB | | | | [address] [facility], | | | | | | [place] [address] | | | | + + + [...] | | | | | | at [facility], [address] | | | | | | [address] [facility], | | | | | | [place] [address] | | | | + + + [...] | | | Fingerstick | performed at [facility];[address] | | LAB | | | | [address] [place] | | | | | | [address] | | | | + + + [...] LAB | | | | performed at [facility];[address] | | | | | | [address];[place] | | | | | | [address] | | | | + + + [...] | | | Fingerstick | performed at [facility];[address] | | LAB | | | | [address];[place] | | | | | | [address] | | | | + + + [...] | | | Fingerstick | performed at [facility];[address] | | LAB | | | | [address];[place] | | | | | | [address] | | | | + + + [...] | | | REVIEWED | performed at [facility] | | LAB | | | | [address] [place] | | | | | | [address] | | | | + + + [...] | | | | | performed at [facility], [address] | | | | | | [facility] | | | | | | [place] [address] | | | | + + + [...] | | | Fingerstick | performed at [facility];[address] | | LAB | | | | [address];[place], [place] | | | | | | [address] | | | | + + + [...] LAB | | | | [facility], [address] [facility] [address] | | | | | | [address], [place], [place] | | | | | | [address] | | | | + + + + + + | RED CELL | 5.68 (H)Comment: Testing | 3.70 - 5.10 | EXTERNAL | | | COUNT | performed at [facility], [address] | [address] | LAB | | | | [address], | | | | | | [place] [address] | | | | + + + + + + | Hgb | 17.2 (H)Comment: Testing | 11.3 - 15.5 | EXTERNAL | | | | performed at [facility], [address] | g/dL | LAB | | | | [address], | | | | | | [place] [address] | | | | + + + + + + | Hematocrit, | 52.1 (H)Comment: Testing | 34.0 - 46.0 % | EXTERNAL | | | POC | performed at [facility], [address] | | LAB | | | | [address], | | | | | | [place] [address] | | | | + + + + + + | MCV | 91.9Comment: Testing | 80.0 - 100.0 fl | EXTERNAL | | | | performed at [facility], [address] | | LAB | | | | [address], | | | | | | [place] [address] | | | | + + + + + + | MCH | 30.3Comment: Testing | 27.0 - 34.0 pg | EXTERNAL | | | | performed at [facility], [address] | | LAB | | | [address], | | | | | | [place] [address] | | | | + + + + + + | MCHC | 33.0Comment: Testing | 32.0 - 35.5 | EXTERNAL | | | | performed at [facility], [address] | g/dL | LAB | | | [address], | | | | | | [place] [address] | | | | + + + + + + | RDW-CV | 42.0Comment: Testing | 37 - 53 fl | EXTERNAL | | | | performed at [facility], [address] | | LAB | | | | [address], | | | | | | [place] [address] | | | | + + + + + + | Platelet | 357Comment: Testing | 150 - 400 K/uL | EXTERNAL | | | Count | performed at [facility], [address] | | LAB | | | Plasma | [address], | | | | | | [place] [address] | | | | + + + + + + | MPV | 8.9Comment: Testing | fl | EXTERNAL | | | | performed at [facility], [address] | | LAB | | | | [address], | | | | | | [place] [address] | | | | + + + + + + | Differentia | AUTOMATEDComment: | | EXTERNAL | | | l Type | Testing performed at | | LAB | | | | [facility], [address] | | | | | | [place] | | | | | | [address] | | | | + + + + + + | % Segmented | 83.31Comment: Testing | % | EXTERNAL | | | | performed at [facility], [address] | | LAB | | | Neutrophils | [address], | | | | | | [place] [address] | | | | + + + + + + | % | 10.09Comment: Testing | % | EXTERNAL | | | Lymphocytes | performed at [facility], [address] | | LAB | | | | [address], | | | | | | [place] [address] | | | | + + + + + + | % Monocytes | 6.44Comment: Testing | % | EXTERNAL | | | | performed at [facility], [address] | | LAB | | | | [address], | | | | | | [place] [address] | | | | + + + + + + | % | 0.03Comment: Testing | % | EXTERNAL | | | Eosinophils | performed at [facility], [address] | | LAB | | | | [address], | | | | | | [place] [address] | | | | + + + + + + | % Basophils | 0.13Comment: Testing | % | EXTERNAL | | | | performed at [facility], [address] | | LAB | | | | [address], | | | | | | [place] [address] | | | | + + + + + + | Absolute | 16.01 (H)Comment: | 1.90 - 7.40 | EXTERNAL | | | Segmented | Testing performed at | K/uL | LAB | | | Neutrophils | [facility], [address] | | | | | | [place] | | | | | | [address] | | | | + + + + + + | Absolute | 1.94Comment: Testing | 1.00 - 3.90 | EXTERNAL | | | Lymphocytes | performed at [facility], [address] | K/uL | LAB | | | | [address], | | | | | | [place] [address] | | | | + + + + + + | Absolute | 1.24 (H)Comment: Testing | 0.00 - 0.80 | EXTERNAL | | | Monocytes | performed at [facility], [address] | [address] | LAB | | | | [address], | | | | | | [place] [address] | | | | + + + + + + | Absolute | 0.01Comment: Testing | 0.00 - 0.50 | EXTERNAL | | | Eosinophils | performed at [facility], [address] | [address] | LAB | | | | [address], | | | | | | [place] [address] | | | | + + + + + + | Absolute | 0.03Comment: Testing | 0.00 - 0.10 | EXTERNAL | | | Basophils | performed at [facility], [address] | K[address] | LAB | | | | [address], | | | | | | [place] [address] | | | | + + + [...] | | | (REF) | performed at [facility], [address] | | LAB | | | | [address], | | | | | | [place] [address] | | | | + + + [...] EXTERNAL | | | | performed at [facility], [address] | | LAB | | | | [address], | | | | | | [place] [address] | | | | + + + [...] EXTERNAL | | | | performed at [facility], [address] | | LAB | | | | [address], | | | | | | [place] [address] | | | | + + + [...] | | | | | [place] [address] | | | | + + + + + + | K | 3.4 (L)Comment: Testing | 3.5 - 4.9 | EXTERNAL | | | | performed at [facility], [address] | mmol/L | LAB | | | | [address], | | | | | | [place] [address] | | | | + + + + + + | Cl | 101Comment: Testing | 99 - 109 mmol/L | EXTERNAL | | | | performed at [facility], [address] | | LAB | | | | [address], | | | | | | [place] [address] | | | | + + + + + + | CO2 | 24Comment: Testing | 23 - 32 mmol/L | EXTERNAL | | | | performed at [facility], [address] | | LAB | | | | [address], | | | | | | [place] [address] | | | | + + + + + + | Anion Gap | 16Comment: Testing | 5 - 20 mmol/L | EXTERNAL | | | | performed at [facility], [address] | | LAB | | | | [address], | | | | | | [place] [address] | | | | + + + + + + | Glucose, | 204 (H)Comment: Testing | 65 - 99 mg/dL | EXTERNAL | | | Fasting | performed at [facility], [address] | | LAB | | | | [address], | | | | | | [place] [address] | | | | + + + + + + | BUN | 13Comment: Testing | 8 - 25 mg/dL | EXTERNAL | | | | performed at [facility], [address] | | LAB | | | | [address], | | | | | | [place] [address] | | | | + + + + + + | Creatinine | 0.6Comment: Testing | 0.50 - 1.00 | EXTERNAL | | | | performed at [facility], [address] | mg/dL | LAB | | | | [address] [place], | | | | | | [place] [address] | | | | + + + + + + | BUN/Creatin | 22Comment: Testing | | EXTERNAL | | | ine Ratio | performed at [facility], [address] | | LAB | | | | [address], | | | | | | [place] [address] | | | | + + + + + + | Calcium | 9.7Comment: Testing | 8.5 - 10.5 | EXTERNAL | | | | performed at [facility], [address] | mg/dL | LAB | | | | [address], | | | | | | [place] [address] | | | | + + + + + + | Protein, | 7.5Comment: Testing | 6.3 - 8.2 g/dL | EXTERNAL | | | Total | performed at [facility], [address] | | LAB | | | | [address], | | | | | | [place] [address] | | | | + + + + + + | Albumin | 3.7Comment: Testing | 3.3 - 4.8 g/dL | EXTERNAL | | | | performed at [facility], [address] | | LAB | | | [address], | | | | | | [place] [address] | | | | + + + + + + | Globulin | 3.8Comment: Testing | 1.3 - 4.9 g/dL | EXTERNAL | | | | performed at [facility], [address] | | LAB | | | [address], | | | | | | [place] [address] | | | | + + + + + + | A/G Ratio | 1.0Comment: Testing | 1.0 - 2.4 | EXTERNAL | | | | performed at [facility], [address] | | LAB | | | | [address], | | | | | | [place], [place] [address] | | | | + + + + + + | Bilirubin | 0.5Comment: Testing | 0.1 - 1.5 mg/dL | EXTERNAL | | | Total | performed at [facility], [address] | | LAB | | | | [address], | | | | | | [place] [address] | | | | + + + + + + | ALP, | 87Comment: Testing | 35 - 115 U/L | EXTERNAL | | | External | performed at [facility], [address] | | LAB | | | | [address], | | | | | | [place] [address] | | | | + + + + + + | AST | 14Comment: Testing | 10 - 45 U/L | EXTERNAL | | | | performed at [facility], [address] | | LAB | | | | [address], | | | | | | [place] [address] | | | | + + + + + + | ALT | 23Comment: Testing | 10 - 65 U/L | EXTERNAL | | | | performed at [facility], [address] | | LAB | | | | [address] [facility], | | | | | | [place] [address] | | | | + + + [...] | | | | | | at [facility], [address] | | | | | | [address], | | | | | | [place] [address] | | | | + + + [...] | | | Fingerstick | performed at [facility];[address] | | LAB | | | | [address];[place], [place] | | | | | | [address] | | | | + + + [...] EXTERNAL | | | | performed at [facility];[address] | | LAB | | | | [address];[place], [place] | | | | | | [address] | | | | + + + [...] | | | | | | ACUTE IA Testing | | | | | | performed at [facility];[address] | | | | | | [address];[place], [place] | | | | | | [address] | | | | + + + [...] EXTERNAL | | | | performed at [facility] | | LAB | | | | [address];[place], [place] | | | | | | [address] | | | | + + + [...] | | | Fingerstick | performed at [facility];[address] | | LAB | | | | [address];[place], [place] | | | | | | [address] | | | | + + + [...] TV A Clark: 0.91 m/s TV Dec Sawyer: 4.46 m/s2 TV Dec | | | Time: 129.57 ms TV E Clark: 0.57 m/s TV E/A Ratio: 0.63 | | | Faculty Research Assistant: CABRERA Authenticated by: Corrine Mendez MD Report | | | Date/Time: -- | | + + + + + | Procedure Note | + + | Niraj Lepe - 11/23/2018 9:09 AM PDT Patient Name: Bebeto AAMDOR of | | : 1955 Performing Physician: [...] (A-L): | | 15.26 ml/m2LAAs A2C: 11.59 [id number] A-L A2C: 27.05 mlLALs A2C: 4.22 cmLAAs A4C: | | 10.97 [id number] A-L A4C: 27.00 mlLALs A4C: 3.78 cmTAPSE: 2.65 cmIVC diameter: | | 1.44 cmIVC collapse: 0.69 cmIVC % collapse: 50.47 %HR: 94.75 BPMAV maxP.76 | | mmHgAV meanP.21 mmHgAV Vmax: 1.71 m/Damián Vmean: 1.29 m/Damián VTI: 36.39 cmAVA | | Vmax: 2.57 cm2AVA (VTI): 2.46 ej9BSRK Vmax: 0.00 cm2/m2AVAI (VTI): 0.00 | | cm2/m2LVCI Dopp: 4.52 l/waup2GDGW Dopp: 8.45 l/minHR: 94.23 BPMLVOT maxP.94 | [...] 0.15 m/sTV A Clark: 0.91 m/sTV Dec Sawyer: 4.46 m/s2TV Dec Time: 129.57 msTV E [place]: | | 0.57 m/sTV E/A Ratio: 0.63 Faculty Research Assistant: [email or web address] by: Corrine Mendez | | MDReport [...] A Clark: 0.91 m/s | |TV Dec Sawyer: 4.46 m/s2 | |TV Dec Time: 129.57 ms | |TV E [place]: 0.57 m/s | |TV E/A Ratio: 0.63 | | | |Faculty Research Assistant: KVW | |Authenticated by: Corrine Mendez MD [...] EXTERNAL | | | | performed at [facility];[address] | | LAB | | | | [address];[place], [place] | | | | | | [address] | | | | + + + [...] | | | | | | ACUTE IA Testing | | | | | | performed at [facility];[address] | | | | | | [address] [facility];[place], [place] | | | | | | [address] | | | | + + + [...] EXTERNAL | | | | performed at [facility];[address] | | LAB | | | | [address] [facility];[place], [place] | | | | | | [address] | | | | + + + [...] | | | Fingerstick | performed at [facility];[address] | | LAB | | | | [address];[place], [place] | | | | | | [address] | | | | + + + [...] EXTERNAL | | | | performed at [facility];[address] | | LAB | | | | [address];[place], [place] | | | | | | [address] | | | | + + + [...] | | | | | | ACUTE IA Testing | | | | | | performed at [facility];[address] | | | | | | [facility];[place], [place] | | | | | | [address] | | | | + + + [...] EXTERNAL | | | | performed at [facility];[address] | | LAB | | | | [address];[place], [place] | | | | | | [address] | | | | + + + [...] | | | Fingerstick | performed at [facility];[address] | | LAB | | | | [address];[place] | | | | | | [address] | | | | + + + [...] | | | | [facility], [address] [facility] | | | | | | [place] | | | | | | [address] | | | | + + + + + + | RED CELL | 5.43 (H)Comment: Testing | 3.70 - 5.10 | EXTERNAL | | | COUNT | performed at [facility], [address] | M/uL | LAB | | | | [address], | | | | | | [place] [address] | | | | + + + + + + | Hgb | 16.9 (H)Comment: Testing | 11.3 - 15.5 | EXTERNAL | | | | performed at [facility], [address] | g/dL | LAB | | | | [address], | | | | | | [place] [address] | | | | + + + + + + | Hematocrit, | 50.2 (H)Comment: Testing | 34.0 - 46.0 % | EXTERNAL | | | POC | performed at [facility], [address] | | LAB | | | | [address], | | | | | | [place] [address] | | | | + + + + + + | MCV | 92.5Comment: Testing | 80.0 - 100.0 fl | EXTERNAL | | | | performed at [facility], [address] | | LAB | | | | [address], | | | | | | [place] [address] | | | | + + + + + + | MCH | 31.0Comment: Testing | 27.0 - 34.0 pg | EXTERNAL | | | | performed at [facility], [address] | | LAB | | | | [address], | | | | | | [place] [address] | | | | + + + + + + | MCHC | 33.6Comment: Testing | 32.0 - 35.5 | EXTERNAL | | | | performed at [facility], [address] | g/dL | LAB | | | | [address], | | | | | | [place] [address] | | | | + + + + + + | RDW-CV | 42.0Comment: Testing | 37 - 53 fl | EXTERNAL | | | | performed at [facility], [address] | | LAB | | | | [address], | | | | | | [place] [address] | | | | + + + + + + | Platelet | 327Comment: Testing | 150 - 400 K/uL | EXTERNAL | | | Count | performed at [facility], [address] | | LAB | | | Plasma | [address], | | | | | | [place] [address] | | | | + + + + + + | MPV | 8.9Comment: Testing | fl | EXTERNAL | | | | performed at [facility], [address] | | LAB | | | | [address], | | | | | | [place] [address] | | | | + + + + + + | Differentia | MANUALComment: Testing | | EXTERNAL | | | l Type | performed at [facility], [address] | | LAB | | | | [address], | | | | | | [place] [address] | | | | + + + + + + | Segmented | 93Comment: Testing | % | EXTERNAL | | | Neutrophils | performed at [facility], [address] | | LAB | | | Manual | [address], | | | | | | [place] [address] | | | | + + + + + + | % Bands | 2Comment: Testing | % | EXTERNAL | | | | performed at [facility], [address] | | LAB | | | | [address], | | | | | | [place] [address] | | | | + + + + + + | Lymphocytes | 4Comment: Testing | % | EXTERNAL | | | Manual | performed at [facility], [address] | | LAB | | | | [address], | | | | | | [place] [address] | | | | + + + + + + | Monocytes | 1Comment: Testing | % | EXTERNAL | | | Manual | performed at [facility], [address] | | LAB | | | | [address], | | | | | | [place] [address] | | | | + + + + + + | Absolute | 17.18 (H)Comment: | 1.90 - 7.40 | EXTERNAL | | | Neutrophils | Testing performed at | K/uL | LAB | | | | [facility], [address] [facility] | | | | | | [place] | | | | | | [address] | | | | + + + + + + | Bands | 0.37 (H)Comment: Testing | 0.00 - 0.20 | EXTERNAL | | | Manual | performed at [facility], [address] | K/uL | LAB | | | | [address], | | | | | | [place] [address] | | | | + + + + + + | Absolute | 0.74 (L)Comment: Testing | 1.00 - 3.90 | EXTERNAL | | | Lymphocytes | performed at [facility], [address] | K/uL | LAB | | | | [address], | | | | | | [place] [address] | | | | + + + + + + | Absolute | 0.18Comment: Testing | 0.00 - 0.80 | EXTERNAL | | | Monocytes | performed at [facility], [address] | K/uL | LAB | | | | [address], | | | | | | [place] [address] | | | | + + + + + + | RBC | RBC AND PLT MORPHOLOGY | | EXTERNAL | | | Morphology | APPEAR NORMALComment: | | LAB | | | | Testing performed at | | | | | | [facility], [address] | | | | | | [place] | | | | | | [address] | | | | + + + [...] EXTERNAL | | | | performed at [facility], [address] | uIU/mL | LAB | | | | [address], | | | | | | [place] [address] | | | | + + + [...] | | | | | performed at [facility], [address] | | | | | | [address], | | | | | | [place] [address] | | | | + + + [...] | | | | | [place] [address] | | | | + + + [...] | EXTERNAL | | | A1c | Turkish Diabetes | | LAB | | | [...] | | | | | performed at [facility], [address] | | | | | [address] | | | | | | [place] [address] | | | | + + + [...] | | | | | performed at [facility], [address] | | | | | | [address] | | | | | | [place] [address] | | | | + + + [...] | | | | | [place] [address] | | | | + + + + + + | Triglycerid | 108Comment: SPECIMEN | mg/dL | EXTERNAL | | | es | SLIGHTLY | | LAB | | | | HEMOLYZEDTesting | | | | | | performed at [facility], [address] | | | | | | [address], | | | | | | [place] [address] | | | | + + + + + + | HDL | 90Comment: Testing | mg/dL | EXTERNAL | | | | performed at [facility], [address] | | LAB | | | | [address], | | | | | | [place] [address] | | | | + + + + + + | LDL | 103 (H)Comment: Testing | mg/dL | EXTERNAL | | | Cholesterol | performed at [facility], [address] | | LAB | | | , | [address], | | | | | Calculated, | [place] [address] | | | | | External | [...] | | | | | [place] [address] | | | | + + + + + + | K | 3.7Comment: SPECIMEN | 3.5 - 4.9 | EXTERNAL | | | | SLIGHTLY | mmol/L | LAB | | | | HEMOLYZEDTesting | | | | | | performed at [facility], [address] | | | | | | [address], | | | | | | [place] [address] | | | | + + + + + + | Cl | 103Comment: Testing | 99 - 109 mmol/L | EXTERNAL | | | | performed at [facility], [address] | | LAB | | | | [address], | | | | | | [place] [address] | | | | + + + + + + | CO2 | 23Comment: Testing | 23 - 32 mmol/L | EXTERNAL | | | | performed at [facility], [address] | | LAB | | | | [address], | | | | | | [place] [address] | | | | + + + + + + | Anion Gap | 16Comment: Testing | 5 - 20 mmol/L | EXTERNAL | | | | performed at [facility], [address] | | LAB | | | | [address], | | | | | | [place] [address] | | | | + + + [...] | | | | | [place] [address] | | | | + + + + + + | BUN | 12Comment: Testing | 8 - 25 mg/dL | EXTERNAL | | | | performed at [facility], [address] | | LAB | | | | [address], | | | | | | [place] [address] | | | | + + + + + + | Creatinine | 0.8Comment: SPECIMEN | 0.50 - 1.00 | EXTERNAL | | | | SLIGHTLY | mg/dL | LAB | | | | HEMOLYZEDTesting | | | | | | performed at [facility], [address] | | | | | | [address], | | | | | | [place] [address] | | | | + + + + + + | BUN/Creatin | 15Comment: Testing | | EXTERNAL | | | ine Ratio | performed at [facility], [address] | | LAB | | | | [address], | | | | | | [place] [address] | | | | + + + + + + | Calcium | 9.6Comment: Testing | 8.5 - 10.5 | EXTERNAL | | | | performed at [facility], [address] | mg/dL | LAB | | | | [address], | | | | | | [place] [address] | | | | + + + + + + | Protein, | 8.1Comment: Testing | 6.3 - 8.2 g/dL | EXTERNAL | | | Total | performed at [facility], [address] | | LAB | | | | [address], | | | | | | [place] [address] | | | | + + + + + + | Albumin | 4.2Comment: Testing | 3.3 - 4.8 g/dL | EXTERNAL | | | | performed at [facility], [address] | | LAB | | | | [address], | | | | | | [place] [address] | | | | + + + + + + | Globulin | 3.9Comment: Testing | 1.3 - 4.9 g/dL | EXTERNAL | | | | performed at [facility], [address] | | LAB | | | | [address], | | | | | | [place] [address] | | | | + + + + + + | A/G Ratio | 1.1Comment: Testing | 1.0 - 2.4 | EXTERNAL | | | | performed at [facility], [address] | | LAB | | | | [address], | | | | | | [place] [address] | | | | + + + + + + | Bilirubin | 0.4Comment: SPECIMEN | 0.1 - 1.5 mg/dL | EXTERNAL | | | Total | SLIGHTLY | | LAB | | | | HEMOLYZEDTesting | | | | | | performed at [facility], [address] | | | | | | [address], | | | | | | [place] [address] | | | | + + + + + + | ALP, | 95Comment: Testing | 35 - 115 U/L | EXTERNAL | | | External | performed at [facility], [address] | | LAB | | | | [address], | | | | | | [place] [address] | | | | + + + + + + | AST | 13Comment: SPECIMEN | 10 - 45 U/L | EXTERNAL | | | | SLIGHTLY | | LAB | | | | HEMOLYZEDTesting | | | | | | performed at [facility], [address] | | | | | | [address], | | | | | | [place] [address] | | | | + + + + + + | ALT | 20Comment: SPECIMEN | 10 - 65 U/L | EXTERNAL | | | | SLIGHTLY | | LAB | | | | HEMOLYZEDTesting | | | | | | performed at [facility], [address] | | | | | | [address], | | | | | | [place] [address] | | | | + + + [...] | | | | | | at [facility], [address] | | | | | | [address], | | | | | | [place] [address] | | | | + + + [...] | | | | | performed at [facility];[address] | | | | | | [facility];[place], [place] | | | | | | [address] | | | | + + + [...] EXTERNAL | | | | performed at [facility];[address] | | LAB | | | | [address];[place] | | | | | | [address] | | | | + + + + + + | Clarity | CLEARComment: Testing | | EXTERNAL | | | | performed at [facility];[address] | | LAB | | | | [address];[place] | | | | | | [address] | | | | + + + + + + | Specific | 1.033 (H)Comment: | 1.002 - 1.030 | EXTERNAL | | | [place] | Testing performed at | | LAB | | | | [facility];[address];[place] [address] | | | | + + + + + + | Leukocyte | NEGATIVEComment: Testing | | EXTERNAL | | | Esterase, | performed at [facility];[address] | | LAB | | | Urine | [address];[place] | | | | | | [address] | | | | + + + + + + | Nitrite, | NEGATIVEComment: Testing | | EXTERNAL | | | Urine | performed at [facility];[address] | | LAB | | | | [address];[place] | | | | | | [address] | | | | + + + + + + | Urobilinoge | NORMALComment: Testing | mg/dL | EXTERNAL | | | n, Urine | performed at [facility];[address] | | LAB | | | | [address];[place] | | | | | | [address] | | | | + + + + + + | Protein, | 100 (A)Comment: Testing | mg/dL | EXTERNAL | | | Urine | performed at [facility];[address] | | LAB | | | | [address];[place] | | | | | | [address] | | | | + + + + + + | pH, Urine | 6.0Comment: Testing | 5.0 - 8.0 | EXTERNAL | | | | performed at [facility];[address] | | LAB | | | | [address];[place] | | | | | | [address] | | | | + + + + + + | Blood, | SMALL (A)Comment: | | EXTERNAL | | | Urine | Testing performed at | | LAB | | | | [facility];[address];[place] [address] | | | | + + + + + + | Ketones | TRACE (A)Comment: | mg/dL | EXTERNAL | | | | Testing performed at | | LAB | | | | [facility];[address];[place] [address] | | | | + + + + + + | Bilirubin, | NEGATIVEComment: Testing | | EXTERNAL | | | Urine | performed at [facility];[address] | | LAB | | | | [address];[place] | | | | | | [address] | | | | + + + + + + | Glucose, | >500 (A)Comment: Testing | mg/dL | EXTERNAL | | | Urine | performed at [facility];[address] | | LAB | | | | [address];[place] | | | | | | [address] | | | | + + + + + + | WBC, UA | 0-2Comment: Testing | 0 - 5 /hpf | EXTERNAL | | | | performed at [facility];[address] | | LAB | | | | [address];[place] | | | | | | [address] | | | | + + + + + + | RBC, UA | 6-10Comment: Testing | 0 - 5 /hpf | EXTERNAL | | | | performed at [facility];[address] | | LAB | | | | [address];[place] | | | | | | [address] | | | | + + + + + + | Bacteria, | NONE SEENComment: | | EXTERNAL | | | UA | Testing performed at | | LAB | | | | [facility];[address];[place] [address] | | | | + + + + + + | Epithelial | 16-25Comment: Testing | /lpf | EXTERNAL | | | Cells | performed at [facility];[address] | | LAB | | | | [address];[place] | | | | | | [address] | | | | + + + [...] 2:47AM Referring Provider Line: | | | [phone] ID: [id number] | | + + + [...] | | 2015 2:47AM Referring Provider Line: [phone] ID: [id number] | | | |Bones: No [...] 05 2016 2:47AM Referring Provider Enma e: [phone] ID: [id number] | + + CT Abdomen [...] 1:22AM Referring Provider Line: | | | [phone] ID: [id number] | | + + + [...] 2016 1:22AM Referring Provider Line: | | [phone] ID: [id number] | |Pancreas: Normal. | | [...] 05 2016 1:22AM Referring Provider Arlet ne: [phone] ID: [id number] | + + Troponin I [...] | | | | | | ACUTE IA Testing | | | | | | performed at [facility];[address] | | | | | | [address];[place] | | | | | | [address] | | | | + + + [...] 9:59PM Referring Provider | | | Line: [phone] ID: [id number] | | + + + [...] Mar 04 2016 9:59PM Referring Provider Line: [phone] ID: [id number] | |COMPARISON: Date 02/29/2016. | [...] Mar 04 2016 9:59PM Referring Provider Line: [phone] ID: [id number] | + + HISTORICAL LAB [...] K/uL | LAB | | | | [facility];[address];[place] [address] | | | | + + + + + + | RED CELL | 5.59 (H)Comment: Testing | 3.70 - 5.10 | EXTERNAL | | | COUNT | performed at [facility];[address] | M/uL | LAB | | | | [address];[place] | | | | | | [address] | | | | + + + + + + | Hgb | 17.6 (H)Comment: Testing | 11.3 - 15.5 | EXTERNAL | | | | performed at [facility];[address] | g/dL | LAB | | | | [address];[place] | | | | | | [address] | | | | + + + + + + | Hematocrit, | 51.1 (H)Comment: Testing | 34.0 - 46.0 % | EXTERNAL | | | POC | performed at [facility];[address] | | LAB | | | | [address];[place] | | | | | | [address] | | | | + + + + + + | MCV | 91.4Comment: Testing | 80.0 - 100.0 fl | EXTERNAL | | | | performed at [facility];[address] | | LAB | | | | [address];[place] | | | | | | [address] | | | | + + + + + + | MCH | 31.5Comment: Testing | 27.0 - 34.0 pg | EXTERNAL | | | | performed at [facility];[address] | | LAB | | | | [address];[place] | | | | | | [address] | | | | + + + + + + | MCHC | 34.5Comment: Testing | 32.0 - 35.5 | EXTERNAL | | | | performed at [facility];[address] | g/dL | LAB | | | | [address];[place] | | | | | | [address] | | | | + + + + + + | RDW-CV | 41.6Comment: Testing | 37 - 53 fl | EXTERNAL | | | | performed at [facility];[address] | | LAB | | | | [address];[place] | | | | | | [address] | | | | + + + + + + | Platelet | 359Comment: Testing | 150 - 400 K/uL | EXTERNAL | | | Count | performed at [facility];[address] | | LAB | | | Plasma | [address];[place] | | | | | | [address] | | | | + + + + + + | MPV | 8.4Comment: Testing | fl | EXTERNAL | | | | performed at [facility];[address] | | LAB | | | | [address];[place] | | | | | | [address] | | | | + + + + + + | Differentia | AUTOMATEDComment: | | EXTERNAL | | | l Type | Testing performed at | | LAB | | | | [facility];[address];[place] [address] | | | | + + + + + + | % Segmented | 87.39Comment: Testing | % | EXTERNAL | | | | performed at [facility];[address] | | LAB | | | Neutrophils | [address];[place] | | | | | | [address] | | | | + + + + + + | % | 9.30Comment: Testing | % | EXTERNAL | | | Lymphocytes | performed at [facility];[address] | | LAB | | | | [address];[place] | | | | | | [address] | | | | + + + + + + | % Monocytes | 2.16Comment: Testing | % | EXTERNAL | | | | performed at [facility];[address] | | LAB | | | | [address];[place] | | | | | | [address] | | | | + + + + + + | % | 0.54Comment: Testing | % | EXTERNAL | | | Eosinophils | performed at [facility];[address] | | LAB | | | | [address];[place] | | | | | | [address] | | | | + + + + + + | % Basophils | 0.61Comment: Testing | % | EXTERNAL | | | | performed at [facility];[address] | | LAB | | | | [address];[place] | | | | | | [address] | | | | + + + + + + | Absolute | 12.39 (H)Comment: | 1.90 - 7.40 | EXTERNAL | | | Segmented | Testing performed at | K/uL | LAB | | | Neutrophils | [facility];[address];[place] [address] | | | | + + + + + + | Absolute | 1.32Comment: Testing | 1.00 - 3.90 | EXTERNAL | | | Lymphocytes | performed at [facility];[address] | K/uL | LAB | | | | [address];[place] | | | | | | [address] | | | | + + + + + + | Absolute | 0.31Comment: Testing | 0.00 - 0.80 | EXTERNAL | | | Monocytes | performed at [facility];[address] | K/uL | LAB | | | | [address];[place] | | | | | | [address] | | | | + + + + + + | Absolute | 0.08Comment: Testing | 0.00 - 0.50 | EXTERNAL | | | Eosinophils | performed at [facility];[address] | K/uL | LAB | | | | [address];[place] | | | | | | [address] | | | | + + + + + + | Absolute | 0.09Comment: Testing | 0.00 - 0.10 | EXTERNAL | | | Basophils | performed at [facility];[address] | K/uL | LAB | | | | [address];[place] | | | | | | [address] | | | | + + + + + + | RBC | RBC AND PLT MORPHOLOGY | | EXTERNAL | | | Morphology | APPEAR NORMALComment: | | LAB | | | | Testing performed at | | | | | | [facility];[address];[place] [address] | | | | + + + + + + | Platelet | ADEQUATEComment: Testing | | EXTERNAL | | | Estimate | performed at [facility];[address] | | LAB | | | | [address];[place] | | | | | | [address] | | | | + + + + + + | Differentia | SLIDE SCANNED, AGREES | | EXTERNAL | | | l Comments | WITH AUTOMATED | | LAB | | | | RESULTS.Comment: Testing | | | | | | performed at [facility];[address] | | | | | | [address];[place] | | | | | | [address] | | | | + + + + + + | Na | 136Comment: Testing | 135 - 145 | EXTERNAL | | | | performed at [facility];[address] | mmol/L | LAB | | | | [address];[place] | | | | | | [address] | | | | + + + + + + | K | 3.9Comment: SLT | 3.5 - 4.9 | EXTERNAL | | | | HEMOLYSISTesting | mmol/L | LAB | | | | performed at [facility];[address] | | | | | | [address];[place] | | | | | | [address] | | | | + + + + + + | Cl | 101Comment: Testing | 99 - 109 mmol/L | EXTERNAL | | | | performed at [facility];[address] | | LAB | | | | [address];[place] | | | | | | [address] | | | | + + + + + + | CO2 | 24Comment: Testing | 23 - 32 mmol/L | EXTERNAL | | | | performed at [facility];[address] | | LAB | | | | [address];[place] | | | | | | [address] | | | | + + + + + + | Anion Gap | 15Comment: Testing | 5 - 20 mmol/L | EXTERNAL | | | | performed at [facility];[address] | | LAB | | | | [address];[place] | | | | | | [address] | | | | + + + + + + | Glucose, | 255 (H)Comment: Testing | 65 - 99 mg/dL | EXTERNAL | | | Fasting | performed at [facility];[address] | | LAB | | | | [address];[place] | | | | | | [address] | | | | + + + + + + | BUN | 12Comment: Testing | 8 - 25 mg/dL | EXTERNAL | | | | performed at [facility];[address] | | LAB | | | | [address];[place] | | | | | | [address] | | | | + + + + + + | Creatinine | 0.97Comment: Testing | 0.50 - 1.00 | EXTERNAL | | | | performed at [facility];[address] | mg/dL | LAB | | | | [address];[place] | | | | | | [address] | | | | + + + + + + | BUN/Creatin | 13Comment: Testing | | EXTERNAL | | | ine Ratio | performed at [facility];[address] | | LAB | | | | [address];[place] | | | | | | [address] | | | | + + + + + + | Calcium | 10.5Comment: Testing | 8.5 - 10.5 | EXTERNAL | | | | performed at [facility];[address] | mg/dL | LAB | | | | [address];[place] | | | | | | [address] | | | | + + + + + + | Protein, | 8.8 (H)Comment: Testing | 6.3 - 8.2 g/dL | EXTERNAL | | | Total | performed at [facility];[address] | | LAB | | | | [address];[place] | | | | | | [address] | | | | + + + + + + | Albumin | 4.5Comment: Testing | 3.3 - 4.8 g/dL | EXTERNAL | | | | performed at [facility];[address] | | LAB | | | | [address];[place] | | | | | | [address] | | | | + + + + + + | Globulin | 4.4Comment: Testing | 1.3 - 4.9 g/dL | EXTERNAL | | | | performed at [facility];[address] | | LAB | | | | [address];[place] | | | | | | [address] | | | | + + + + + + | A/G Ratio | 1.0Comment: Testing | 1.0 - 2.4 | EXTERNAL | | | | performed at [facility];[address] | | LAB | | | | [address];[place] | | | | | | [address] | | | | + + + + + + | Bilirubin | 0.3Comment: Testing | 0.1 - 1.5 mg/dL | EXTERNAL | | | Total | performed at [facility];[address] | | LAB | | | | [address];[place] | | | | | | [address] | | | | + + + + + + | ALP, | 109Comment: Testing | 35 - 115 U/L | EXTERNAL | | | External | performed at [facility];[address] | | LAB | | | | [address];[place] | | | | | | [address] | | | | + + + + + + | AST | 14Comment: SLT | 10 - 45 U/L | EXTERNAL | | | | HEMOLYSISTesting | | LAB | | | | performed at [facility];[address] | | | | | | [address];[place] | | | | | | [address] | | | | + + + + + + | ALT | 20Comment: Testing | 10 - 65 U/L | EXTERNAL | | | | performed at [facility];[address] | | LAB | | | | [address];[place] | | | | | | [address] | | | | + + + [...] | | | | | | at [facility];[address];[place] [address] | | | | + + + + + + | CK, Total | 65Comment: Testing | 30 - 240 U/L | EXTERNAL | | | | performed at [facility];[address] | | LAB | | | | [address];[place] | | | | | | [address] | | | | + + + [...] | | | | | performed at [facility];[address] | | | | | | [address];[place] | | | | | | [address] | | | | + + + + + + | aPTT, | 30Comment: Testing | 23 - 32 seconds | EXTERNAL | | | Patient | performed at [facility];[address] | | LAB | | | | [address];[place] | | | | | | [address] | | | | + + + + + + | CK-MB | <1.0Comment: Testing | 0.5 - 3.6 ng/mL | EXTERNAL | | | | performed at [facility];[address] | | LAB | | | | [address];[place] | | | | | | [address] | | | | + + + + + + | CK-MB Index | UNABLE TO | | EXTERNAL | | | | CALCULATEComment: | | LAB | | | | Testing performed at | | | | | | [facility];[address];[place] [address] | | | | + + + [...] EXTERNAL | | | | performed at [facility];[address] | | LAB | | | | [address];[place], [place] | | | | | | [address] | | | | + + + [...] | | | | | newspaper editor Jhonny Bates | | | | | | (124) on 03/05/2016 | | | | | | 5:34:53 AM | | | | + + + + + + + + | Specimen | + + | | + + + + + | Narrative | Performed At | + + + | Historically converted procedure from [facility] environment | EXTERNAL LAB | [...]
--- OUTSIDE RECORDS SUMMARY | ~2019-04-09 | XMS | Encounter Summary ---
Demographics + + + | Address | [address] | | | [place] [address] | + + + | Home Phone | | + + + | Preferred Language | Unknown | + + + | Marital Status | | + + + | Christianity Affiliation | Unknown | + + + | Race | Unknown | + + + | Ethnic Group | Unknown | + + + Author + + + | Author | [facility] | | | and [place] | + + + | Organization | [facility] | | | and [place] [...] Team Providers + +------+ + | Care Optometric Assistant Name | Role | Phone | + +------+ + PCP | Unavailable | + +------+ + Encounter Details +--------+ + + + + | Date | Type | Department | Care Team | Description | +--------+ + + + + | 11/14/ | Hospital | [facility] | [place], | Epigastric abdominal | | 2016 - | Encounter | MEDICAL CENTER | MD [address] | pain; Gastritis; | | | | CLINICAL DECISION | [address] | Essential | | 11/18/ | | [address] | [place] [address] | hypertension, | | 2016 | | [place] | [phone] | hypertension with | | | | [phone] | | unspecified goal; | | | | [phone] | | Hyperglycemia | +--------+ + + [...] Summaries by Laila Pruitt MD at 11/19/15 4744 Author: Laila Pruitt MD Service: (none) Author Type: Physician Filed: 11/19/15 9687 Date of Service: 11/19/151054 Status: Addendum Lead Auditor: Laila Pruitt MD (Physician) Related Notes: Original Note by Laila Pruitt MD (Physician) filed at 11/19/15 7810 [facility] Service: Hospitalist Discharge Summary Date [...] Lowry DO [address] [place] [address] Schedule an appointment as soon as possible for a visit [facility] Emergency Department [address] [place] [phone] If symptoms worsen Braydon Lowry DO [address] [place] [address] In 1 week Discharge took 35 minutes, [...] Commonly known as: ULTRAM vitamin D2 (ergocalciferol) 45046 UNITS capsule Refills: 0 Where to Get Your Medications These are the prescriptions that 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 You may get the following medications from [...] 1209 Date of Service: 11/19/151207 Status: Signed Lead Auditor: Lien Starkey RN (Registered Nurse) Patient d/c instructions given with family present. All questions answered. Spouse to [facility] transportation. Lien Starkey RN onver glory Transaction, Provider Unknown - 11/19/2015 5:41 AM PDT Nurse Progress Note by Ximena Villela RN at 11/19/1541 Author: Ximena Villela RN Service: (none) Author Type: Registered Nurse Filed: 11/19/15 0549 Date of Service: 11/19/15540 Status: Signed Lead Auditor: Ximena Villela RN (Registered Nurse) Pt's pain [...] 11/18/151755 Date of Service: 11/18/151747 Status: Signed Lead Auditor: Selma Shook RN (Registered Nurse) Patient complains [...] Date of Service: 11/18/15 1105 Status: Addendum Lead Auditor: Laila Pruitt MD (Physician) Related Notes: Original Note by Laila Pruitt MD (Physician) filed at 11/18/15 1126 [facility] Service: Hospitalist Progress Note Hospital [...] Date of Service: 11/18/15 1024 Status: Signed Lead Auditor: Caity Kenney RN (Registered Nurse) Patient requesting [...] Date of Service: 11/18/15 0730 Status: Signed Lead Auditor: Caity Kenney RN (Registered Nurse) Noted that [...] 11/18/15626 Date of Service: 11/18/15623 Status: Signed Lead Auditor: Cordelia Stein RN (Registered Nurse) Have kept [...] 1524 Date of Service: 11/17/151511 Status: Signed Lead Auditor: Amada Jurado MD (Physician) [facility] Service: Hospitalist Progress Note Hospital Day: Post-Op Day: * No surgery found * SUBJECTIVE Patient summary: 60 with history of tobacco use, [place], hypertension who presented with nausea /vomitting abdominal [...] hours. No results for input(s): PHART, PO2ART, NPW1KBX, J4BKNBGA, BEART in the last 168 hours. No [...] Nov 16 2015 1:24AM Referring Provider Line: [phone] ID: [id number] PROBLEM LIST Principal Problem: Abdominal [...] SBP >180. HLD: continue statin. History of [place]: s/p stenting 15 years ago. Continue plavix, statin, ?not on BB. DM type II with hyperglycemia: on metformin at home. a1c 10. Increase lantus to 15 units an d continue high dose SSI. Monitor BS. Ordered coding educator. Hypercalcemia: resolved.could be 2/2 dehydration, PTH [...] Date of Service: 11/17/15 104 Status: Signed Lead Auditor: Becky Cardenas RN (Registered Nurse) 11/17/15 1033 Discharge Planning Evaluation Admitting Diagnosis intractable abdominal pain Readmission No Living Arrangements (James - [phone]) Support Systems Spouse/significant other;Children;Family members Type of Residence Other (Comment);Private residence House type Mobile home Independent with ADL's Yes Independent with Mobility Yes Home Care Services No Mental Status Oriented Power of Director Regulatory Agency No Anticipated Discharge Plan Post Acute Care [...] 11/17/151038 Date of Service: 11/17/151035 Status: Signed Lead Auditor: Becky Cardenas RN (Registered Nurse) Met with: patient and James [phone] and discussed discharge planning, Pt is a 60 y.o., female admitted with c/o intractable abdominal pain. 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 Independent with all adl's and mobility. Patient's PCP is: BRAYDON LOWRY Patient's insurance:[employer] Coverage concerns: none Medication coverage/concerns: y/n [facility] Bed[facility] Delivery: Community Health resources utilized / needed: none Assistance [...] 11/16/151855 Date of Service: 11/16/151854 Status: Signed Lead Auditor: Ester Merchant RN (Registered Nurse) 162/67 Patient asleep at bedside, left her undisturbed. onver glory Transaction, Provider Unknown - 11/16/2015 3:37 PM PDT Nurse Progress Note by Ester Merchant RN at 11/16/151536 Author: Ester Merchant RN Service: (none) Author Type: Registered Nurse Filed: 11/16/151537 Date of Service: 11/16/151536 Status: Signed Lead Auditor: Ester Merchant RN (Registered Nurse) PRN hydralazine for HTN onver glory Transaction, Provider Unknown - 11/16/2015 12:09 PM PDT Nurse Progress Note by Ester Merchant RN at 11/16/15 1209 Author: Ester Merchant RN Service: (none) Author Type: Registered Nurse Filed: 11/16/15 1210 Date of Service: 11/16/15 1209 Status: Signed Lead Auditor: Ester Merchant RN (Registered Nurse) PRN labetolol for hypertension On monitor Q30 minutes onver glory Transaction, Provider Unknown - 11/16/2015 10:32 AM PDT Nurse Progress Note by Ester Merchant RN at 11/16/15 1032 Author: Ester Merchant RN Service: (none) Author Type: Registered Nurse Filed: 11/16/15 1033 Date of Service: 11/16/15 1032 Status: Signed Lead Auditor: Ester Merchant RN (Registered Nurse) Po Rx for c/o abdominal pain Tele on Amada Cotton i, MD - 11/16/2015 9:47 AM PDTFormatting of this note might be different from the or iginal. Progress Notes by Amada Jurado MD at 11/16/15 0947 Author: Amada Jurado MD Service: Hospitalist Author Type: Physician Filed: 11/16/15 1014 Date of Service: 11/16/15 0947 Status: Addendum Lead Auditor: Amada Jurado MD (Physician) Related Notes: Original Note by Amada Jurado MD (Physician) filed at 11/16/15 1012 [facility] Service: Hospitalist Progress Note Hospital Day: Post-Op [...] hours. No results for input(s): PHART, PO2ART, PPB0ZAJ, S2NRZNKT, BEART in the last 168 hours. No [...] Nov 16 2015 1:24AM Referring Provider Line: [phone] ID: [id number] PROBLEM LIST Principal Problem: Abdominal [...] SBP >180. HLD: continue statin. History of [place]: s/p stenting 15 years ago. Continue plavix, statin, ?not on BB. DM type II with hyperglycemia: on metformin at home. a1c 10. Will start Lantus and increase to high dose SSI. Monitor BS. Ordered coding educator. Hypercalcemia: could be 2/2 dehydration but [...] 11/16/15803 Date of Service: 11/16/15802 Status: Signed Lead Auditor: Ester Merchant RN (Registered Nurse) Electrolyte protocol: Mg 2, no replacement necessary. K+ 3.7 messaged pharmacy to send 20 mEq IV onver glory Transaction, Provider Unknown - 11/16/2015 5:45 AM PDT Progress Notes by Susannah Tristan RPH at 11/16/15544 Author: Susannah Tristan RPH Service: (none) Author Type: Pharmacist Filed: 11/16/1545 Date of Service: 11/16/15544 Status: Signed Lead Auditor: Susannah Tristan RPH (Pharmacist) Renal Dosing Monitoring: [...] | | | Fingerstick | performed at [facility] | | LAB | | | | [address];[place], [place] | | | | | | [address] | | | | + + + [...] EXTERNAL | | | | performed at [facility] | K/uL | LAB | | | | [address];[place] | | | | | | [address] | | | | + + + + + + | RED CELL | 4.66Comment: Testing | 3.70 - 5.10 | EXTERNAL | | | COUNT | performed at [facility] | M/uL | LAB | | | | [address];[place] | | | | | | [address] | | | | + + + + + + | Hgb | 14.6Comment: Testing | 11.3 - 15.5 | EXTERNAL | | | | performed at [facility] | g/dL | LAB | | | | [address];[place] | | | | | | [address] | | | | + + + + + + | Hematocrit, | 42.6Comment: Testing | 34.0 - 46.0 % | EXTERNAL | | | POC | performed at [facility];[address] | | LAB | | | | [address];[place] | | | | | | [address] | | | | + + + + + + | MCV | 91.5Comment: Testing | 80.0 - 100.0 fl | EXTERNAL | | | | performed at [facility];[address] | | LAB | | | | [address];[place] | | | | | | [address] | | | | + + + + + + | MCH | 31.4Comment: Testing | 27.0 - 34.0 pg | EXTERNAL | | | | performed at [facility];[address] | | LAB | | | | [address];[place] | | | | | | [address] | | | | + + + + + + | MCHC | 34.3Comment: Testing | 32.0 - 35.5 | EXTERNAL | | | | performed at [facility] | g/dL | LAB | | | | [address];[place] | | | | | | [address] | | | | + + + + + + | RDW-CV | 43.3Comment: Testing | 37 - 53 fl | EXTERNAL | | | | performed at [facility];[address] | | LAB | | | | [address];[place] | | | | | | [address] | | | | + + + + + + | Platelet | 283Comment: Testing | 150 - 400 K/uL | EXTERNAL | | | Count | performed at [facility];[address] | | LAB | | | Plasma | [address];[place] | | | | | | [address] | | | | + + + + + + | MPV | 8.0Comment: Testing | fl | EXTERNAL | | | | performed at [facility];[address] | | LAB | | | | [address];[place] | | | | | | [address] | | | | + + + + + + | Differentia | AUTOMATEDComment: | | EXTERNAL | | | l Type | Testing performed at | | LAB | | | | [facility];[address];[place] [address] | | | | + + + + + + | % Segmented | 59.96Comment: Testing | % | EXTERNAL | | | | performed at [facility];[address] | | LAB | | | Neutrophils | [address];[place] | | | | | | [address] | | | | + + + + + + | % | 28.13Comment: Testing | % | EXTERNAL | | | Lymphocytes | performed at [facility];[address] | | LAB | | | | [address];[place] | | | | | | [address] | | | | + + + + + + | % Monocytes | 11.00Comment: Testing | % | EXTERNAL | | | | performed at [facility] | | LAB | | | | [address];[place] | | | | | | [address] | | | | + + + + + + | % | 0.23Comment: Testing | % | EXTERNAL | | | Eosinophils | performed at [facility] [place];[address] | | LAB | | | | [address];[place] | | | | | | [address] | | | | + + + + + + | % Basophils | 0.68Comment: Testing | % | EXTERNAL | | | | performed at [facility] | | LAB | | | | [address];[place] | | | | | | [address] | | | | + + + + + + | Absolute | 5.18Comment: Testing | 1.90 - 7.40 | EXTERNAL | | | Segmented | performed at [facility];[address] | K/uL | LAB | | | Neutrophils | [address];[place] | | | | | | [address] | | | | + + + + + + | Absolute | 2.43Comment: Testing | 1.00 - 3.90 | EXTERNAL | | | Lymphocytes | performed at [facility];[address] | K/uL | LAB | | | | [address];[place] | | | | | | [address] | | | | + + + + + + | Absolute | 0.95 (H)Comment: Testing | 0.00 - 0.80 | EXTERNAL | | | Monocytes | performed at [facility];[address] | K/uL | LAB | | | | [address];[place] | | | | | | [address] | | | | + + + + + + | Absolute | 0.02Comment: Testing | 0.00 - 0.50 | EXTERNAL | | | Eosinophils | performed at [facility];[address] | K/uL | LAB | | | | [address];[place] | | | | | | [address] | | | | + + + + + + | Absolute | 0.06Comment: Testing | 0.00 - 0.10 | EXTERNAL | | | Basophils | performed at [facility];[address] | K/uL | LAB | | | | [address];[place] | | | | | | [address] | | | | + + + [...] EXTERNAL | | | | performed at [facility];[address] | mmol/L | LAB | | | | [address];[place], [place] | | | | | | [address] | | | | + + + + + + | K | 3.2 (L)Comment: Testing | 3.5 - 4.9 | EXTERNAL | | | | performed at [facility] | mmol/L | LAB | | | | [address];[place] | | | | | | [address] | | | | + + + + + + | Cl | 104Comment: Testing | 99 - 109 mmol/L | EXTERNAL | | | | performed at [facility];[address] | | LAB | | | | [address];[place] | | | | | | [address] | | | | + + + + + + | CO2 | 26Comment: Testing | 23 - 32 mmol/L | EXTERNAL | | | | performed at [facility];[address] | | LAB | | | | [address];[place] | | | | | | [address] | | | | + + + + + + | Anion Gap | 9Comment: Testing | 5 - 20 mmol/L | EXTERNAL | | | | performed at [facility];[address] | | LAB | | | | [address];[place] | | | | | | [address] | | | | + + + + + + | Glucose, | 168 (H)Comment: Testing | 65 - 99 mg/dL | EXTERNAL | | | Fasting | performed at [facility] | | LAB | | | | [address];[place] | | | | | | [address] | | | | + + + + + + | BUN | 16Comment: Testing | 8 - 25 mg/dL | EXTERNAL | | | | performed at [facility];[address] | | LAB | | | | [address];[place] | | | | | | [address] | | | | + + + + + + | Creatinine | 0.87Comment: Testing | 0.50 - 1.00 | EXTERNAL | | | | performed at [facility] | mg/dL | LAB | | | | [address];[place] | | | | | | [address] | | | | + + + + + + | BUN/Creatin | 18Comment: Testing | | EXTERNAL | | | ine Ratio | performed at [facility];[address] | | LAB | | | | [address];[place] | | | | | | [address] | | | | + + + + + + | Calcium | 9.1Comment: Testing | 8.5 - 10.5 | EXTERNAL | | | | performed at [facility];[address] | mg/dL | LAB | | | | [address];[place] | | | | | | [address] | | | | + + + [...] | | | | | | at [facility];[address] | | | | | [address];[place] [address] | | | | + + + [...] | | | | | | [place] [address] | | | | + + + [...] EXTERNAL | | | | performed at [facility], [address] | | LAB | | | | [address], | | | | | | [place] [address] | | | | + + + [...] EXTERNAL | | | | performed at [facility], [address] | | LAB | | | | [address], | | | | | | [place] [address] | | | | + + + [...] | | | Fingerstick | performed at [facility];[address] | | LAB | | | | [address];[place] | | | | | | [address] | | | | + + + [...] | | technical preparation was performed by [facility] | | | [address] [address] | | | (Harvest Worker Field Crop: Vinh Leal M.D.; [facility]#: [id number]). | | | Diagnostician: Harleen Jeffers MD [...] | | | Fingerstick | performed at [facility];[address] | | LAB | | | | [address];[place] | | | | | | [address] | | | | + + + [...] EXTERNAL | | | | performed at [facility];[address] | mmol/L | LAB | | | | [address];[place] | | | | | | [address] | | | | + + + [...] | | | Fingerstick | performed at [facility];[address] | | LAB | | | | [address];[place] | | | | | | [address] | | | | + + + [...] | | | Fingerstick | performed at [facility];[address] | | LAB | | | | [address];[place], [place] | | | | | | [address] | | | | + + + [...] | | | Fingerstick | performed at [facility];[address] | | LAB | | | | [address];[place], [place] | | | | | | [address] | | | | + + + [...] | | | | [facility], [address] [facility] | | | | | | [place] | | | | | | [address] | | | | + + + + + + | RED CELL | 5.38 (H)Comment: Testing | 3.70 - 5.10 | EXTERNAL | | | COUNT | performed at [facility], [address] | [address]/uL | LAB | | | | [address], | | | | | | [place] [address] | | | | + + + + + + | Hgb | 16.5 (H)Comment: Testing | 11.3 - 15.5 | EXTERNAL | | | | performed at [facility], [address] | g/dL | LAB | | | | [address], | | | | | | [place] [address] | | | | + + + + + + | Hematocrit, | 49.5 (H)Comment: Testing | 34.0 - 46.0 % | EXTERNAL | | | POC | performed at [facility], [address] | | LAB | | | | [address], | | | | | | [place] [address] | | | | + + + + + + | MCV | 92.0Comment: Testing | 80.0 - 100.0 fl | EXTERNAL | | | | performed at [facility], [address] | | LAB | | | | [address], | | | | | | [place] [address] | | | | + + + + + + | MCH | 30.6Comment: Testing | 27.0 - 34.0 pg | EXTERNAL | | | | performed at [facility], [address] | | LAB | | | [address], | | | | | | [place] [address] | | | | + + + + + + | MCHC | 33.2Comment: Testing | 32.0 - 35.5 | EXTERNAL | | | | performed at [facility], [address] | g/dL | LAB | | | | [address], | | | | | | [place] [address] | | | | + + + + + + | RDW-CV | 43.3Comment: Testing | 37 - 53 fl | EXTERNAL | | | | performed at [facility], [address] | | LAB | | | | [address], | | | | | | [place] [address] | | | | + + + + + + | Platelet | 345Comment: Testing | 150 - 400 K/uL | EXTERNAL | | | Count | performed at [facility], [address] | | LAB | | | Plasma | [address], | | | | | | [place] [address] | | | | + + + + + + | MPV | 8.4Comment: Testing | fl | EXTERNAL | | | | performed at [facility], [address] | | LAB | | | | [address], | | | | | | [place] [address] | | | | + + + + + + | Differentia | AUTOMATEDComment: | | EXTERNAL | | | l Type | Testing performed at | | LAB | | | | [facility], [address] | | | | | | [place] | | | | | | [address] | | | | + + + + + + | % Segmented | 72.32Comment: Testing | % | EXTERNAL | | | | performed at [facility], [address] | | LAB | | | Neutrophils | [address], | | | | | | [place] [address] | | | | + + + + + + | % | 20.25Comment: Testing | % | EXTERNAL | | | Lymphocytes | performed at [facility], [address] | | LAB | | | | [address], | | | | | | [place] [address] | | | | + + + + + + | % Monocytes | 7.05Comment: Testing | % | EXTERNAL | | | | performed at [facility], [address] | | LAB | | | | [address], | | | | | | [place] [address] | | | | + + + + + + | % | 0.01Comment: Testing | % | EXTERNAL | | | Eosinophils | performed at [facility], [address] | | LAB | | | | [address], | | | | | | [place] [address] | | | | + + + + + + | % Basophils | 0.37Comment: Testing | % | EXTERNAL | | | | performed at [facility], [address] | | LAB | | | | [address], | | | | | | [place] [address] | | | | + + + + + + | Absolute | 10.45 (H)Comment: | 1.90 - 7.40 | EXTERNAL | | | Segmented | Testing performed at | K/uL | LAB | | | Neutrophils | [facility], [address] | | | | | | [place] | | | | | | [address] | | | | + + + + + + | Absolute | 2.93Comment: Testing | 1.00 - 3.90 | EXTERNAL | | | Lymphocytes | performed at [facility], [address] | K/uL | LAB | | | | [address], | | | | | | [place] [address] | | | | + + + + + + | Absolute | 1.02 (H)Comment: Testing | 0.00 - 0.80 | EXTERNAL | | | Monocytes | performed at [facility], [address] | K/uL | LAB | | | | [address], | | | | | | [place] [address] | | | | + + + + + + | Absolute | 0.00Comment: Testing | 0.00 - 0.50 | EXTERNAL | | | Eosinophils | performed at [facility], [address] | K/uL | LAB | | | | [address], | | | | | | [place] [address] | | | | + + + + + + | Absolute | 0.05Comment: Testing | 0.00 - 0.10 | EXTERNAL | | | Basophils | performed at [facility], [address] | K/uL | LAB | | | | [address], | | | | | | [place] [address] | | | | + + + [...] | | | | | [place] [address] | | | | + + + [...] | | | | | [place] [address] | | | | + + + + + + | K | 3.4 (L)Comment: SPECIMEN | 3.5 - 4.9 | EXTERNAL | | | | SLIGHTLY | mmol/L | LAB | | | | HEMOLYZEDTesting | | | | | | performed at [facility], [address] | | | | | | [address], | | | | | | [place] [address] | | | | + + + + + + | Cl | 101Comment: Testing | 99 - 109 mmol/L | EXTERNAL | | | | performed at [facility], [address] | | LAB | | | | [address], | | | | | | [place] [address] | | | | + + + + + + | CO2 | 24Comment: Testing | 23 - 32 mmol/L | EXTERNAL | | | | performed at [facility], [address] | | LAB | | | | [address], | | | | | | [place] [address] | | | | + + + + + + | Anion Gap | 14Comment: Testing | 5 - 20 mmol/L | EXTERNAL | | | | performed at [facility], [address] | | LAB | | | | [address], | | | | | | [place] [address] | | | | + + + [...] | | | | | [place] [address] | | | | + + + + + + | BUN | 9Comment: Testing | 8 - 25 mg/dL | EXTERNAL | | | | performed at [facility], [address] | | LAB | | | | [address], | | | | | | [place] [address] | | | | + + + + + + | Creatinine | 0.6Comment: SPECIMEN | 0.50 - 1.00 | EXTERNAL | | | | SLIGHTLY | mg/dL | LAB | | | | HEMOLYZEDTesting | | | | | | performed at [facility], [address] | | | | | | [address], | | | | | | [place] [address] | | | | + + + + + + | BUN/Creatin | 15Comment: Testing | | EXTERNAL | | | ine Ratio | performed at [facility], [address] | | LAB | | | | [address], | | | | | | [place] [address] | | | | + + + + + + | Calcium | 9.1Comment: Testing | 8.5 - 10.5 | EXTERNAL | | | | performed at [facility], [address] | mg/dL | LAB | | | | [address], | | | | | | [place] [address] | | | | + + + [...] | | | | | | at [facility], [address] | | | | | | [facility], | | | | | | [place] [address] | | | | + + + [...] | | | Fingerstick | performed at [facility] | | LAB | | | | [address];[place] | | | | | | [address] | | | | + + + [...] LAB | | | | performed at [facility];[address] | | | | | | [address];[place] | | | | | | [address] | | | | + + + [...] | | | | | [place] [address] | | | | + + + + + + | TIBC | 271Comment: Testing | 260 - 490 ug/dL | EXTERNAL | | | | performed at [facility], [address] | | LAB | | | | [address], | | | | | | [place] [address] | | | | + + + + + + | Iron | 35Comment: Testing | 15 - 50 % | EXTERNAL | | | Saturation | performed at [facility], [address] | | LAB | | | | [address], | | | | | | [place] [id number] | | | | + + + [...] | | | | | performed at [facility] [place] | | | | | | [address];[place], [place] | | | | | | [address] | | | | + + + [...] | | | | | performed at [facility] [place] | | | | | | [facility];[place], [place] | | | | | | [address] | | | | + + + [...] | | | External | performed at [facility], [address] | | LAB | | | | [address]ek[address], | | | | | | [place] [address] | | | | + + + [...] | | | Fingerstick | performed at [facility] | | LAB | | | | [address];[place] | | | | | | [address] | | | | + + + [...] | | | Fingerstick | performed at [facility];[address] | | LAB | | | | [address];[place], [place] | | | | | | [address] | | | | + + + [...] | | | Fingerstick | performed at [facility];[address] | | LAB | | | | [address] [place] | | | | | | [address] | | | | + + + [...] | | | | | performed at [facility], [address] | | | | | [facility] | | | | | | [place] [address] | | | | + + + [...] | | | | TCL, [address] [facility] | | | | | | [place] | | | | | | [address] | | | | + + + + + + | RED CELL | 5.58 (H)Comment: Testing | 3.70 - 5.10 | EXTERNAL | | | COUNT | performed at [facility], [address] | M/uL | LAB | | | | [address], | | | | | | [place] [address] | | | | + + + + + + | Hgb | 16.7 (H)Comment: Testing | 11.3 - 15.5 | EXTERNAL | | | | performed at [facility], [address] | g/dL | LAB | | | | [address] [facility] [address], | | | | | | [place] [address] | | | | + + + + + + | Hematocrit, | 51.7 (H)Comment: Testing | 34.0 - 46.0 % | EXTERNAL | | | POC | performed at [facility], [address] | | LAB | | | | [address], | | | | | | [place] [address] | | | | + + + + + + | MCV | 92.7Comment: Testing | 80.0 - 100.0 fl | EXTERNAL | | | | performed at [facility], [address] | | LAB | | | | [address], | | | | | | [place] [address] | | | | + + + + + + | MCH | 30.0Comment: Testing | 27.0 - 34.0 pg | EXTERNAL | | | | performed at [facility], [address] | | LAB | | | | [address], | | | | | | [place] [address] | | | | + + + + + + | MCHC | 32.3Comment: Testing | 32.0 - 35.5 | EXTERNAL | | | | performed at [facility], [address] | g/dL | LAB | | | | [address], | | | | | | [place] [address] | | | | + + + + + + | RDW-CV | 43.8Comment: Testing | 37 - 53 fl | EXTERNAL | | | | performed at [facility], [address] | | LAB | | | | [address], | | | | | | [place] [address] | | | | + + + + + + | Platelet | 313Comment: Testing | 150 - 400 K/uL | EXTERNAL | | | Count | performed at [facility], [address] | | LAB | | | Plasma | [address], | | | | | | [place] [address] | | | | + + + + + + | MPV | 8.6Comment: Testing | fl | EXTERNAL | | | | performed at [facility], [address] | | LAB | | | | [address], | | | | | | [place] [address] | | | | + + + + + + | Differentia | AUTOMATEDComment: | | EXTERNAL | | | l Type | Testing performed at | | LAB | | | | [facility], [address] [facility] | | | | | | [place] | | | | | | [address] | | | | + + + + + + | % Segmented | 80.72Comment: Testing | % | EXTERNAL | | | | performed at [facility], [address] | | LAB | | | Neutrophils | [address] [place], | | | | | | [place] [address] | | | | + + + + + + | % | 12.51Comment: Testing | % | EXTERNAL | | | Lymphocytes | performed at [facility], [address] | | LAB | | | | [address], | | | | | | [place] [address] | | | | + + + + + + | % Monocytes | 6.42Comment: Testing | % | EXTERNAL | | | | performed at [facility], [address] | | LAB | | | | [address], | | | | | | [place] [address] | | | | + + + + + + | % | 0.01Comment: Testing | % | EXTERNAL | | | Eosinophils | performed at [facility], [address] | | LAB | | | | [address], | | | | | | [place] [address] | | | | + + + + + + | % Basophils | 0.34Comment: Testing | % | EXTERNAL | | | | performed at [facility], [address] | | LAB | | | | [address], | | | | | | [place] [address] | | | | + + + + + + | Absolute | 15.43 (H)Comment: | 1.90 - 7.40 | EXTERNAL | | | Segmented | Testing performed at | K/uL | LAB | | | Neutrophils | [facility], [address] | | | | | | [place] | | | | | | [address] | | | | + + + + + + | Absolute | 2.39Comment: Testing | 1.00 - 3.90 | EXTERNAL | | | Lymphocytes | performed at [facility], [address] | K/uL | LAB | | | | [address], | | | | | | [place] [address] | | | | + + + + + + | Absolute | 1.23 (H)Comment: Testing | 0.00 - 0.80 | EXTERNAL | | | Monocytes | performed at [facility], [address] | K/uL | LAB | | | | [address], | | | | | | [place] [address] | | | | + + + + + + | Absolute | 0.00Comment: Testing | 0.00 - 0.50 | EXTERNAL | | | Eosinophils | performed at [facility], [address] | K/uL | LAB | | | | [address], | | | | | | [place] [address] | | | | + + + + + + | Absolute | 0.07Comment: Testing | 0.00 - 0.10 | EXTERNAL | | | Basophils | performed at [facility], [address] | K/uL | LAB | | | | [address] [place], | | | | | | [place] [address] | | | | + + + [...] | EXTERNAL | | | A1c | [place] Diabetes | | LAB | | | [...] | | | | | performed at [facility], [address] | | | | | | [address], | | | | | | [place] [address] | | | | + + + [...] | | | | | performed at [facility], [address] | | | | | | [facility], | | | | | | [place] [address] | | | | + + + [...] | | | | | performed at [facility], [address] | | | | | | [address], | | | | | | [place] [address] | | | | + + + [...] | | | | | [place] [address] | | | | + + + + + + | K | 3.7Comment: SPECIMEN | 3.5 - 4.9 | EXTERNAL | | | | SLIGHTLY | mmol/L | LAB | | | | HEMOLYZEDTesting | | | | | | performed at T[facility], [address] | | | | | | [address], | | | | | | [place] [address] | | | | + + + + + + | Cl | 104Comment: Testing | 99 - 109 mmol/L | EXTERNAL | | | | performed at [facility], [address] | | LAB | | | | [address], | | | | | | [place] [address] | | | | + + + + + + | CO2 | 22 (L)Comment: Testing | 23 - 32 mmol/L | EXTERNAL | | | | performed at [facility], [address] | | LAB | | | | [address], | | | | | | [place] [address] | | | | + + + + + + | Anion Gap | 16Comment: Testing | 5 - 20 mmol/L | EXTERNAL | | | | performed at [facility], [address] | | LAB | | | | [address], | | | | | | [place] [address] | | | | + + + [...] | | | | | [place] [address] | | | | + + + + + + | BUN | 13Comment: Testing | 8 - 25 mg/dL | EXTERNAL | | | | performed at [facility], [address] | | LAB | | | | [address], | | | | | | [place] [address] | | | | + + + + + + | Creatinine | 0.7Comment: SPECIMEN | 0.50 - 1.00 | EXTERNAL | | | | SLIGHTLY | mg/dL | LAB | | | | HEMOLYZEDTesting | | | | | | performed at [facility], [address] | | | | | | [address], | | | | | | [place] [address] | | | | + + + + + + | BUN/Creatin | 19Comment: Testing | | EXTERNAL | | | ine Ratio | performed at [facility], [address] | | LAB | | | | [address], | | | | | | [place] [address] | | | | + + + + + + | Calcium | 9.5Comment: Testing | 8.5 - 10.5 | EXTERNAL | | | | performed at [facility], [address] | mg/dL | LAB | | | | [address], | | | | | | [place] [address] | | | | + + + + + + | Protein, | 7.5Comment: Testing | 6.3 - 8.2 g/dL | EXTERNAL | | | Total | performed at [facility], [address] | | LAB | | | | [address], | | | | | | [place] [address] | | | | + + + + + + | Albumin | 3.6Comment: Testing | 3.3 - 4.8 g/dL | EXTERNAL | | | | performed at [facility], [address] | | LAB | | | | [address], | | | | | | [place] [address] | | | | + + + + + + | Globulin | 3.9Comment: Testing | 1.3 - 4.9 g/dL | EXTERNAL | | | | performed at [facility], [address] | | LAB | | | | [address], | | | | | | [place] [address] | | | | + + + + + + | A/G Ratio | 0.9 (L)Comment: Testing | 1.0 - 2.4 | EXTERNAL | | | | performed at [facility], [address] | | LAB | | | | [address], | | | | | | [place] [address] | | | | + + + + + + | Bilirubin | 0.3Comment: SPECIMEN | 0.1 - 1.5 mg/dL | EXTERNAL | | | Total | SLIGHTLY | | LAB | | | | HEMOLYZEDTesting | | | | | | performed at [facility], [address] | | | | | | [address], | | | | | | [place] [address] | | | | + + + + + + | ALP, | 103Comment: Testing | 35 - 115 U/L | EXTERNAL | | | External | performed at [facility], [address] | | LAB | | | | [address], | | | | | | [place] [address] | | | | + + + + + + | AST | 13Comment: SPECIMEN | 10 - 45 U/L | EXTERNAL | | | | SLIGHTLY | | LAB | | | | HEMOLYZEDTesting | | | | | | performed at [facility], [address] | | | | | | [address], | | | | | | [place] [address] | | | | + + + + + + | ALT | 28Comment: SPECIMEN | 10 - 65 U/L | EXTERNAL | | | | SLIGHTLY | | LAB | | | | HEMOLYZEDTesting | | | | | | performed at [facility], [address] | | | | | | [address], | | | | | | [place] [address] | | | | + + + [...] | | | | | | at [facility], [address] | | | | | [address], | | | | | | [place] [address] | | | | + + + [...] | | | Fingerstick | performed at [facility];[address] | | LAB | | | | [address];[place], [place] | | | | | | [address] | | | | + + + [...] | | | | | performed at [facility], [address] | | | | | | [address], | | | | | | [place] [address] | | | | + + + [...] | | | Fingerstick | performed at [facility];[address] | | LAB | | | | [address];[place], [place] | | | | | | [address] | | | | + + + [...] | | | Fingerstick | performed at [facility];[address] | | LAB | | | | [address];[place] | | | | | | [address] | | | | + + + [...] EXTERNAL | | | | performed at [facility];888 | mmol/L | LAB | | | | [address];[place], [place] | | | | | | [address] | | | | + + + [...] | | | Fingerstick | performed at [facility];[address] | | LAB | | | | [address];[place] | | | | | | [address] | | | | + + + [...] | | | Fingerstick | performed at [facility];[address] | | LAB | | | | [address];[place] | | | | | | [address] | | | | + + + [...] | | | | | [place] [address] | | | | + + + [...] | | | | | | at [facility], [address] | | | | | | [address], | | | | | | [place] [address] | | | | + + + [...] | | | | | performed at [facility], [address] | | | | | | [facility], | | | | | | [place] [address] | | | | + + + [...] | | | Fingerstick | performed at [facility];[address] | | LAB | | | | [address];[place], [place] | | | | | | [address] | | | | + + + [...] | | | | | | at [facility];[address] [place] [address] | | | | | | [facility];[place] [address] | | | | + + + [...] K/uL | LAB | | | | [facility], [address] | | | | | | [place] | | | | | | [address] | | | | + + + + + + | RED CELL | 5.47 (H)Comment: Testing | 3.70 - 5.10 | EXTERNAL | | | COUNT | performed at [facility], [address] | M/uL | LAB | | | | [place], | | | | | | [place] [address] | | | | + + + + + + | Hgb | 16.6 (H)Comment: Testing | 11.3 - 15.5 | EXTERNAL | | | | performed at [facility], [address] | g/dL | LAB | | | | [address], | | | | | | [place] [address] | | | | + + + + + + | Hematocrit, | 50.0 (H)Comment: Testing | 34.0 - 46.0 % | EXTERNAL | | | POC | performed at [facility], [address] | | LAB | | | | [address], | | | | | | [place] [address] | | | | + + + + + + | MCV | 91.4Comment: Testing | 80.0 - 100.0 fl | EXTERNAL | | | | performed at [facility], [address] | | LAB | | | | [address], | | | | | | [place] [address] | | | | + + + + + + | MCH | 30.3Comment: Testing | 27.0 - 34.0 pg | EXTERNAL | | | | performed at [facility], [address] | | LAB | | | | [address], | | | | | | [place] [address] | | | | + + + + + + | MCHC | 33.1Comment: Testing | 32.0 - 35.5 | EXTERNAL | | | | performed at [facility], [address] | g/dL | LAB | | | | [address], | | | | | | [place] [address] | | | | + + + + + + | RDW-CV | 42.9Comment: Testing | 37 - 53 fl | EXTERNAL | | | | performed at [facility], [address] | | LAB | | | | [address], | | | | | | [place] [address] | | | | + + + + + + | Platelet | 328Comment: Testing | 150 - 400 K/uL | EXTERNAL | | | Count | performed at [facility], [address] | | LAB | | | Plasma | [address], | | | | | | [place] [address] | | | | + + + + + + | MPV | 8.8Comment: Testing | fl | EXTERNAL | | | | performed at [facility], [address] | | LAB | | | | [address], | | | | | | [place] [address] | | | | + + + + + + | Differentia | MANUALComment: Testing | | EXTERNAL | | | l Type | performed at [facility], [address] | | LAB | | | | [address], | | | | | | [place], [place] [address] | | | | + + + + + + | Segmented | 84Comment: Testing | % | EXTERNAL | | | Neutrophils | performed at [facility], [address] | | LAB | | | Manual | [address], | | | | | | [place], [place] [address] | | | | + + + + + + | % Bands | 6Comment: Testing | % | EXTERNAL | | | | performed at [facility], [address] | | LAB | | | | [address], | | | | | | [place], [place] [address] | | | | + + + + + + | Lymphocytes | 8Comment: Testing | % | EXTERNAL | | | Manual | performed at [facility], [address] | | LAB | | | | [address], | | | | | | [place] [address] | | | | + + + + + + | Monocytes | 2Comment: Testing | % | EXTERNAL | | | Manual | performed at [facility], [address] | | LAB | | | | [address], | | | | | | [place] [address] | | | | + + + + + + | Absolute | 17.54 (H)Comment: | 1.90 - 7.40 | EXTERNAL | | | Neutrophils | Testing performed at | K/uL | LAB | | | | [facility], [address] | | | | | | [place] | | | | | | [address] | | | | + + + + + + | Bands | 1.25 (H)Comment: Testing | 0.00 - 0.20 | EXTERNAL | | | Manual | performed at [facility], [address] | K/uL | LAB | | | | [address], | | | | | | [place] [address] | | | | + + + + + + | Absolute | 1.67Comment: Testing | 1.00 - 3.90 | EXTERNAL | | | Lymphocytes | performed at [facility], [address] | K/uL | LAB | | | | [address], | | | | | | [place] [address] | | | | + + + + + + | Absolute | 0.42Comment: Testing | 0.00 - 0.80 | EXTERNAL | | | Monocytes | performed at [facility], [address] | K/uL | LAB | | | | [address], | | | | | | [place] [address] | | | | + + + + + + | RBC | RBC AND PLT MORPHOLOGY | | EXTERNAL | | | Morphology | APPEAR NORMALComment: | | LAB | | | | Testing performed at | | | | | | [facility], [address] | | | | | | [place] | | | | | | [address] | | | | + + + [...] | | | | | performed at [facility], [address] | | | | | | [address], | | | | | | [place] [address] | | | | + + + [...] | | | | | performed at [facility], [address] | | | | | | [facility], | | | | | | [place] [address] | | | | + + + [...] | EXTERNAL | | | A1c | [place] Diabetes | | LAB | | | [...] | | | | | performed at [facility], [address] | | | | | | [address] [facility], | | | | | | [place] [address] | | | | + + + [...] | | | | | performed at [facility], [address] | | | | | | [facility], | | | | | | [place] [address] | | | | + + + [...] | | | | | [place] [address] | | | | + + + + + + | K | 3.7Comment: SPECIMEN | 3.5 - 4.9 | EXTERNAL | | | | SLIGHTLY | mmol/L | LAB | | | | HEMOLYZEDTesting | | | | | | performed at [facility], [address] | | | | | | [address], | | | | | | [place] [address] | | | | + + + + + + | Cl | 97 (L)Comment: Testing | 99 - 109 mmol/L | EXTERNAL | | | | performed at [facility], [address] | | LAB | | | | [address], | | | | | | [place] [address] | | | | + + + + + + | CO2 | 23Comment: Testing | 23 - 32 mmol/L | EXTERNAL | | | | performed at [facility], [address] | | LAB | | | | [address], | | | | | | [place] [address] | | | | + + + + + + | Anion Gap | 19Comment: Testing | 5 - 20 mmol/L | EXTERNAL | | | | performed at [facility], [address] | | LAB | | | | [address], | | | | | | [place] [address] | | | | + + + [...] | | | | | [place] [address] | | | | + + + + + + | BUN | 14Comment: Testing | 8 - 25 mg/dL | EXTERNAL | | | | performed at [facility], [address] | | LAB | | | | [address], | | | | | | [place] [address] | | | | + + + + + + | Creatinine | 0.8Comment: SPECIMEN | 0.50 - 1.00 | EXTERNAL | | | | SLIGHTLY | mg/dL | LAB | | | | HEMOLYZEDTesting | | | | | | performed at [facility], [address] | | | | | | [address], | | | | | | [place] [address] | | | | + + + + + + | BUN/Creatin | 18Comment: Testing | | EXTERNAL | | | ine Ratio | performed at [facility], [address] | | LAB | | | | [address], | | | | | | [place] [address] | | | | + + + + + + | Calcium | 10.7 (H)Comment: Testing | 8.5 - 10.5 | EXTERNAL | | | | performed at [facility], [address] | mg/dL | LAB | | | | [address], | | | | | | [place] [address] | | | | + + + [...] [place], | | | | | | [place] [address] | | | | + + + [...] | | | Fingerstick | performed at [facility];[address] | | LAB | | | | [address];[place], [place] | | | | | | [address] | | | | + + + [...] (500), | | | | | | medical transcription editor ATUL TIPTON | | | | | | (125) on 11/16/2015 | | | | | | 5:04:05 AM | | | | + + + + + + + + | Specimen | + + | | + + + + + | Narrative | Performed At | + + + | Historically converted [facility] from [facility] environment | EXTERNAL LAB | [...] | | LAB | | | | [facility];[address] [facility] | | | | | | [address] [address] | | | | + + + + + + | Clarity | CLEARComment: Testing | | EXTERNAL | | | | performed at [facility];[address] | | LAB | | | | [address];[place] | | | | | | [address] | | | | + + + + + + | Specific | 1.015Comment: Testing | 1.002 - 1.030 | EXTERNAL | | | [place] | performed at [facility];[address] | | LAB | | | | [address];[place] | | | | | | [address] | | | | + + + + + + | Leukocyte | NEGATIVEComment: Testing | | EXTERNAL | | | Esterase, | performed at [facility];[address] | | LAB | | | Urine | [address];[place] | | | | | | [address] | | | | + + + + + + | Nitrite, | NEGATIVEComment: Testing | | EXTERNAL | | | Urine | performed at [facility];[address] | | LAB | | | | [address];[place] | | | | | | [address] | | | | + + + + + + | Urobilinoge | NORMALComment: Testing | mg/dL | EXTERNAL | | | n, Urine | performed at [facility];[address] | | LAB | | | | [address];[place] | | | | | | [address] | | | | + + + + + + | Protein, | NEGATIVEComment: Testing | mg/dL | EXTERNAL | | | Urine | performed at [facility];[address] | | LAB | | | | [address];[place] | | | | | | [address] | | | | + + + + + + | pH, Urine | 8.0Comment: Testing | 5.0 - 8.0 | EXTERNAL | | | | performed at [facility];[address] | | LAB | | | | [address];[place] | | | | | | [address] | | | | + + + + + + | Blood, | SMALL (A)Comment: | | EXTERNAL | | | Urine | Testing performed at | | LAB | | | | [facility];[address];[place] [address] | | | | + + + + + + | Ketones | TRACE (A)Comment: | mg/dL | EXTERNAL | | | | Testing performed at | | LAB | | | | [facility];[address];[place] [address] | | | | + + + + + + | Bilirubin, | NEGATIVEComment: Testing | | EXTERNAL | | | Urine | performed at [facility];[address] | | LAB | | | | [address];[place] | | | | | | [address] | | | | + + + + + + | Glucose, | >500 (A)Comment: Testing | mg/dL | EXTERNAL | | | Urine | performed at [facility];[address] | | LAB | | | | [address];[place] | | | | | | [address] | | | | + + + + + + | WBC, UA | 0-2Comment: Testing | 0 - 5 /hpf | EXTERNAL | | | | performed at [facility];[address] | | LAB | | | | [address];[place] | | | | | | [address] | | | | + + + + + + | RBC, UA | 3-5Comment: Testing | 0 - 5 /hpf | EXTERNAL | | | | performed at [facility];[address] | | LAB | | | | [address];[place] | | | | | | [address] | | | | + + + + + + | Bacteria, | NONE SEENComment: | | EXTERNAL | | | UA | Testing performed at | | LAB | | | | [facility];[address];[place] [address] | | | | + + + + + + | Epithelial | 3-5Comment: Testing | /lpf | EXTERNAL | | | Cells | performed at [facility];[address] | | LAB | | | | [address];[place], [place] | | | | | | [address] | | | | + + + [...] 1:24AM | | | Referring Provider Line: [phone] ID: [id number] | | + + + [...] Nov 16 2015 1:24AM Referring Provider Line: [phone] ID: [id number] | |Spleen: Small lenticular subcapsular [...] 16 2015 1:24AM Referring Provider Line: [phone] ID: [id number] | + + External Lab: [...] K/uL | LAB | | | | [facility];[address];[place] [address] | | | | + + + + + + | RED CELL | 5.46 (H)Comment: Testing | 3.70 - 5.10 | EXTERNAL | | | COUNT | performed at [facility];[address] | M/uL | LAB | | | | [address];[place] | | | | | | [id number] | | | | + + + + + + | Hgb | 16.9 (H)Comment: Testing | 11.3 - 15.5 | EXTERNAL | | | | performed at [facility] [place] | g/dL | LAB | | | | [address];[place] | | | | | | [address] | | | | + + + + + + | Hematocrit, | 50.3 (H)Comment: Testing | 34.0 - 46.0 % | EXTERNAL | | | POC | performed at [facility] [place] | | LAB | | | | [address];[place] | | | | | | [address] | | | | + + + + + + | MCV | 92.2Comment: Testing | 80.0 - 100.0 fl | EXTERNAL | | | | performed at [facility] [place] | | LAB | | | | [address];[place] | | | | | | [address] | | | | + + + + + + | MCH | 30.9Comment: Testing | 27.0 - 34.0 pg | EXTERNAL | | | | performed at [facility] [place] [place] | | LAB | | | | [address];[place] | | | | | | [address] | | | | + + + + + + | MCHC | 33.5Comment: Testing | 32.0 - 35.5 | EXTERNAL | | | | performed at [facility] [place] | g/dL | LAB | | | | [address];[place] | | | | | | [address] | | | | + + + + + + | RDW-CV | 41.1Comment: Testing | 37 - 53 fl | EXTERNAL | | | | performed at [facility] [place] [facility] [place] | | LAB | | | | [address];[place] | | | | | | [address] | | | | + + + + + + | Platelet | 342Comment: Testing | 150 - 400 K/uL | EXTERNAL | | | Count | performed at [facility] [place] [facility] [place] | | LAB | | | Plasma | [address];[place] | | | | | | [address] | | | | + + + + + + | MPV | 8.3Comment: Testing | fl | EXTERNAL | | | | performed at [facility] [place] | | LAB | | | | [address];[place] | | | | | | [address] | | | | + + + + + + | Differentia | AUTOMATEDComment: | | EXTERNAL | | | l Type | Testing performed at | | LAB | | | | [facility] [facility] [place];[place] [address] | | | | + + + + + + | % Segmented | 77.97Comment: Testing | % | EXTERNAL | | | | performed at [facility] [facility] [place] | | LAB | | | Neutrophils | [address];[place] | | | | | | [address] | | | | + + + + + + | % | 16.10Comment: Testing | % | EXTERNAL | | | Lymphocytes | performed at [facility] [place] [facility] [place] | | LAB | | | | [address];[place] | | | | | | [phone] | | | | + + + + + + | % Monocytes | 4.68Comment: Testing | % | EXTERNAL | | | | performed at [facility] [place] [facility] [place] | | LAB | | | | [address];[place] | | | | | | [address] | | | | + + + + + + | % | 0.09Comment: Testing | % | EXTERNAL | | | Eosinophils | performed at [facility] | | LAB | | | | [address];[place] | | | | | | [address] | | | | + + + + + + | % Basophils | 1.16Comment: Testing | % | EXTERNAL | | | | performed at [facility] [place] [facility] [place] | | LAB | | | | [address];[place] | | | | | | [address] | | | | + + + + + + | Absolute | 12.04 (H)Comment: | 1.90 - 7.40 | EXTERNAL | | | Segmented | Testing performed at | K/uL | LAB | | | Neutrophils | [facility] [place] | | [address];[place] [address] | | | | + + + + + + | Absolute | 2.49Comment: Testing | 1.00 - 3.90 | EXTERNAL | | | Lymphocytes | performed at [facility] [place] | K/uL | LAB | | | | [address];[place] | | | | | | [address] | | | | + + + + + + | Absolute | 0.72Comment: Testing | 0.00 - 0.80 | EXTERNAL | | | Monocytes | performed at [facility] [place] | K/uL | LAB | | | | [address];[place] | | | | | | [address] | | | | + + + + + + | Absolute | 0.01Comment: Testing | 0.00 - 0.50 | EXTERNAL | | | Eosinophils | performed at [facility] [place] | K/uL | LAB | | | | [address];[place] | | | | | | [address] | | | | + + + + + + | Absolute | 0.18 (H)Comment: Testing | 0.00 - 0.10 | EXTERNAL | | | Basophils | performed at [facility] [place] | K/uL | LAB | | | | [address];[place] | | | | | | [address] | | | | + + + [...] EXTERNAL | | | | performed at [facility] [place];[address] | | LAB | | | | [address];[place], [place] | | | | | | [address] | | | | + + + [...] EXTERNAL | | | | performed at [facility] [place] | | LAB | | | | [facility];[place], [place] | | | | | | [address] | | | | + + + [...] EXTERNAL | | | | performed at [facility] [place];[address] | mmol/L | LAB | | | | [address];[place], [place] | | | | | | [address] | | | | + + + [...] EXTERNAL | | | | performed at [facility] [place] | mmol/L | LAB | | | | [address];[place] | | | | | | [address] | | | | + + + + + + | K | 3.7Comment: SLT | 3.5 - 4.9 | EXTERNAL | | | | HEMOLYSISTesting | mmol/L | LAB | | | | performed at [facility] [place] | | | | | | [address];[place] | | | | | | [address] | | | | + + + + + + | Cl | 97 (L)Comment: Testing | 99 - 109 mmol/L | EXTERNAL | | | | performed at [facility] [place];[address] | | LAB | | | | [address];[place] | | | | | | [address] | | | | + + + + + + | CO2 | 28Comment: Testing | 23 - 32 mmol/L | EXTERNAL | | | | performed at [facility] [place];[address] | | LAB | | | | [address];[place] | | | | | | [address] | | | | + + + + + + | Anion Gap | 10Comment: Testing | 5 - 20 mmol/L | EXTERNAL | | | | performed at [facility] [place];[address] | | LAB | | | | [address];[place] | | | | | | [address] | | | | + + + + + + | Glucose, | 377 (H)Comment: Testing | 65 - 99 mg/dL | EXTERNAL | | | Fasting | performed at [facility] [place] | | LAB | | | | [address];[place] | | | | | | [address] | | | | + + + + + + | BUN | 15Comment: Testing | 8 - 25 mg/dL | EXTERNAL | | | | performed at [facility] [place] | | LAB | | | | [address];[place] | | | | | | [address] | | | | + + + + + + | Creatinine | 0.92Comment: Testing | 0.50 - 1.00 | EXTERNAL | | | | performed at [facility] [place] | mg/dL | LAB | | | | [address];[place] | | | | | | [address] | | | | + + + + + + | BUN/Creatin | 17Comment: Testing | | EXTERNAL | | | ine Ratio | performed at [facility] [place];[address] | | LAB | | | | [address];[place] | | | | | | [address] | | | | + + + + + + | Calcium | 10.9 (H)Comment: Testing | 8.5 - 10.5 | EXTERNAL | | | | performed at [facility] [place] | mg/dL | LAB | | | | [address];[place] | | | | | | [address] | | | | + + + + + + | Protein, | 8.8 (H)Comment: Testing | 6.3 - 8.2 g/dL | EXTERNAL | | | Total | performed at [facility] [place] | | LAB | | | | [address];[place] | | | | | | [address] | | | | + + + + + + | Albumin | 4.3Comment: Testing | 3.3 - 4.8 g/dL | EXTERNAL | | | | performed at [facility] [place];[address] | | LAB | | | | [address];[place] | | | | | | [address] | | | | + + + + + + | Globulin | 4.5Comment: Testing | 1.3 - 4.9 g/dL | EXTERNAL | | | | performed at [facility] [place];[address] | | LAB | | | | [address];[place] | | | | | | [address] | | | | + + + + + + | A/G Ratio | 1.0Comment: Testing | 1.0 - 2.4 | EXTERNAL | | | | performed at [facility] [place];[address] | | LAB | | | | [address];[place] | | | | | | [address] | | | | + + + + + + | Bilirubin | 0.3Comment: Testing | 0.1 - 1.5 mg/dL | EXTERNAL | | | Total | performed at [facility] [place];[address] | | LAB | | | | [address];[place] | | | | | | [address] | | | | + + + + + + | ALP, | 159 (H)Comment: Testing | 35 - 115 U/L | EXTERNAL | | | External | performed at [facility] [place];[address] | | LAB | | | | [address];[place] | | | | | | [address] | | | | + + + + + + | AST | 18Comment: SLT | 10 - 45 U/L | EXTERNAL | | | | HEMOLYSISTesting | | LAB | | | | performed at [facility] [place];[address] | | | | | | [address];[place] | | | | | | [address] | | | | + + + + + + | ALT | 34Comment: Testing | 10 - 65 U/L | EXTERNAL | | | | performed at [facility] [place];[address] | | LAB | | | | [address];[place] | | | | | | [address] | | | | + + + [...] | | | | | | at [facility] [place];[address];[place] [address] | | | | + + + [...]
--- OUTSIDE RECORDS SUMMARY | ~2019-04-09 | XMS | Encounter Summary ---
Demographics + + + | Address | [address] | | | [place] [address] | + + + | Home Phone | | + + + | Preferred Language | Unknown | + + + | Marital Status | | + + + | Yarsanism Affiliation | Unknown | + + + | Race | Unknown | + + + | Ethnic Group | Unknown | + + + Author + + + | Author | [facility] | | | and [place] | + + + | Organization | [facility] | [...] Providers + +------+ + | Care Manager Employee Relations Name | Role | Phone | + +------+ + PCP | Unavailable | + +------+ + Encounter Details +--------+ + + + + | Date | Type | Department | Care Team | Description | +--------+ + + + + | 03/27/ | Emergency | [facility] | Susannah Izquierdo, | Shoulder sprain, | | 2014 | | [facility] | DO [address] | right, initial | | | | EMERGENCY [place] | [place] [address] | encounter; Fall from | | | | [address] | [phone] | ground level; Hand | | | | [place] | | abrasion, | | | | [address] | | unspecified | | | | [phone] | | laterality, initial | | | [...]
--- OUTSIDE RECORDS SUMMARY | ~2019-04-09 | XMS | Clinical Summary ---
Demographics + + + | Address | [address] | | | [address] | | | [place] [address] | + + + | Home Phone [...] | Author | [facility] (Historical as of | | | 11-25-18) | + + + | Organization | [facility] (Historical as of | | | 11-25-18) [...] [place] | | | | | [phone] | | + + + + + Care Team Providers + +------+ + | Care Fishing Boat Mate Name | Role | Phone | + [...] | 20 | | e | | [address] UNITS capsule | | | | 16 [...] +------+-------+ + | PREMERA | PREMER | [id number] | | | [address] [address] | | | A BLUE | | | | [place], [place] | | | CROSS | | | | [phone] | | | FED | | | [...] | sammi | | | [phone] | [phone] | + +--------+ +--------+ + +
[~2019-04-09 08:24] MED LIST: CARAFATE1 GM/10 ML PO; CARVEDILOL25 MG PO; CARVEDILOL3.125 MG PO; GABAPENTIN300 MG PO; GLYBURIDE2.5 MG PO; HYDROCHLOROTH12.5 MG PO; IBUPROFEN600 MG PO; LOSARTAN POTASS50 MG PO; NICOTINE PATCH1 EAC1 TD; NOVOLOG MI100 UNIT/1 SUB-Q; PLAVIX75 MG PO; PRAVACHOL40 MG PO; SERTRALINE HCL100 MG PO
--- NOTE | 2019-04-09 16:00 | NUR ---
PT ADMITTED FROM ED VIA WHEELCHAIR AT THIS TIME. PT ALERT AND ORIENTED. SBA TO BATHROOM.
--- NOTE | 2019-04-09 17:30 | NUR ---
Spoke with Whit. She lives in [place] with her spouse James. Worked for [employer] and then [employer] when they moved to [place]. States she has not been feeling well for sometime and last few days has had abd pain. Denies use of DME. Spouse will assist her on discharge, plans on going home when able.
--- NOTE | 2019-04-09 17:58 | NUR ---
PT ADMITTEDFROM ED THIS AFTERNOON 1600, VOIDING WELL, ALERT AND ORIENTED. IV PAIN MEDICATIONS 3MG IV MORPHINE AND TORDOL 30MG GIVEN PRN, PT HAS NOT REPORTED NAUSEA, SHE IS NPO, WILL HAVE HIDA SCAN TOMORROW AM. POST SURGERY FROM JANUARY (SEE CHART RECORDS).
--- NOTE | 2019-04-09 18:20 | NUR ---
PATIENT RESTING IN BED. VITAL SIGNS DONE. I&O DONE BY RN. CALL LIGHT WITHIN REACH. NO OTHER NEEDS AT THIS TIME
--- NOTE | 2019-04-09 18:41 | NUR ---
PT REPORTS NAUSEA, NO EMESIS. 4MG IV ZOFRAN PRN GIVEN AT THIS TIME
--- NOTE | 2019-04-09 19:51 | NUR ---
RECEIVED REPORT FROM DAY SHIFT RN. PATIENT IS RESTING IN BED. PATIENT DENIES ANY PAIN OR NAUSEA. PATIENT DENIES ANY NEEDS. CALL LIGHT IN REACH.
--- NOTE | 2019-04-09 21:30 | NUR ---
PATIENT ASSESEMENT COMPLETED. PATIENT UP TO USE THE RESTROOM. PATIENT WAS ABLE TO VOID. PATIENT IS NOW BACK IN BED RESTING. VITALS TAKEN AND RECORDED. INTAKE AND OUPUT RECORDED. PATIENT RATES PAIN AT A 7/10. PATIENT GIVEN PRN PAIN MEDICATION PER ORDER FOR 7/10 RLQ PAIN. PATIENTS EVENING MEDICATIONS GIVEN PER ORDER. PATIENT DENIES ANY NAUSEA. PATIENT DENIES ANY FURTHER NEEDS AT THIS TIME. PATIENT IS RESTING IN BED WITH SCDS IN PLACE. IV INFUSING PER ORDER. CALL LIGHT IN REACH.
--- NOTE | 2019-04-09 22:50 | NUR ---
PATIENT IS RESTING IN BED WITH EYES CLOSED, RR 16. CALL LIGHT IN REACH.
--- NOTE | 2019-04-10 00:26 | NUR ---
PATIENT IS RESTING IN BED WITH EYES CLOSED, RR 17. CALL LIGHT IN REACH.
--- NOTE | 2019-04-10 02:05 | NUR ---
PATIENT ASSESMENT COMPLETED. PATIENTS VITALS TAKEN AND RECORDED. PATIENTS BS CHECKED PER ORDER AND IS WNL. PATIENT ASSISTED TO THE RESTROOM A SBA. PATIENT IS STEADY ON HER FEET. PATIENT WAS ABLE TO VOID. PATIENT IS NOW BACK IN BED RESTING. PATIENT RATES PAIN AT A 7/10 IN HER RLQ. PATIENT GIVEN PRN PAIN MEDICATION PER ORDER. IV INFUSING PER ORDER. PATIENTS INTAKE AND OUPUT RECORDED. PATIENT DENIES ANY FURTHER NEEDS. CALL LIGHT IN REACH.
--- NOTE | 2019-04-10 03:02 | NUR ---
PATIENT IS RESTING IN BED WATCHING TV. PATIENT RATES PAIN AT A 4/10 IN HER RLQ. PATIENT GIVEN PRN PAIN MEDICATION PER ORDER. PATIENT REMAINS NPO. NO FURTHER NEEDS NOTED. CALL LIGHT IN REACH.
--- NOTE | 2019-04-10 04:27 | NUR ---
PATIENT RESTED ON AND OFF THROUGHOUT THE SHIFT. PATIENT IS NPO. PATIENT IS A SBA TO THE BR AND IS STEADY ON HER FEET. PATIENT IS ON RA. PATIENT HAS SCDS WHIILE IN BED. PATIENT RECEIVED PRN PAIN MEDICATION FOR PLQ PAIN. PATIENT HAS DENIED ANY NAUSEA. PATIENT HAS NOTED EDEMA IN HER HANDS. PATIENT HAS IV FLUID INFUSING. PATIENT IS AAOX3 AND USES CALL LIGHT APPROPRIATLEY.
--- NOTE | 2019-04-10 05:57 | NUR ---
PATIENTS VITALS TAKEN AND RECORDED. PATIENT RATES PAIN AT A 4/10. SCHEDULED MEDICATION GIVEN FOR PAIN. PATIENT DENIES THE NEED FOR ADDITIONAL PAIN MEDICATION PER ORDER. PATIENT ASSISTED TO THE RESTROOM BY YUE SHELTON. PATIENT WAS ABLE TO VOID. PATIENT IS BACK IN BED RESTING. CALL LIGHT IN REACH. INTAKE AND OUTPUT RECORDED. SCDS IN USE. CALL LIGHT IN REACH.
--- NOTE | 2019-04-10 07:42 | NUR ---
REPORT RECEIVED FROM RODGER LARSEN. PT NPO WITH BS OF 97 THIS MORNING. PT ASYMTOMATIC.
--- NOTE | 2019-04-10 08:07 | NUR ---
adminsitered morning meds. will wait to administer levaquin until after hida scan.
--- NOTE | 2019-04-10 09:00 | NUR ---
PT OFF FLOOR FOR TEST. IN ROOM, REFILLED HIS ICE WATER.
--- NOTE | 2019-04-10 10:19 | NUR ---
In to speak with pt and she is having and US. Will return later.
--- NOTE | 2019-04-10 10:32 | NUR ---
PT STILL OFF FLOOR WITH RADIOLOGY.
[2019-04-10] MEDS ORDERED: ASPIR-LOW81 MG PO (10:39)
[2019-04-10] MEDS ORDERED: NOVOLOG MI100 UNIT/2 SUB-Q (10:42)
--- NOTE | 2019-04-10 10:56 | NUR ---
PATIENT IN BED, IN ROOM. RN IN ROOM. CALL LIGHT IN REACH. NO FURTHER NEEDS AT THIS TIME.
--- NOTE | 2019-04-10 11:05 | NUR ---
PT BACK FROM HIDA SCAN. TOLERATED WELL JUST THIRSTY. CALLED DR WOMACK AND HE AUTHORIZED SOME ICE WATER. IN ROOM. GIVEN TORADOL FOR PAIN AND STARTED ANTIBIOTIC THAT WAS HELD THIS MORNING.
[2019-04-10] MEDS ORDERED: FLONASE ALLERG9.9 ML NAS (12:46)
--- NOTE | 2019-04-10 12:46 | NUR ---
MED REC COMPLETE
--- NOTE | 2019-04-10 14:06 | NUR ---
PT ALERT, ORIENTED AND SUPPORTED BY HER . PT IS ALITTLE DISAPPOINTED IN HAVING TO BE BACK, AND TOLD ME SHE HOPES TO BE DC'D TODAY. HAD A QUICK PRAYER WITH PT WILL FOLLOW NEEDED
--- NOTE | 2019-04-10 15:31 | NUR ---
PT STILL OFF FLOOR FOR SURGERY.
--- NOTE | 2019-04-10 17:09 | NUR ---
04/10/19 1709 Darlyn Soliman 1701-PATIENT ARRIVED TO PACU ON 6L MASK REACTIVE TO VOICE OPENING EYES ORAL AIRWAY IN PLACE. RR EVEN.MIDLINE ABDOMINAL INCISION CDI GIA DRAIN SEROUSANGUINOUS TO LLQ WITH GAUZE. ECKERT CATHETER IN PLACE DRAINING YELLOW URINE. 1705-PATIENT EYES OPEN RAISING HAND TO MOUTH ORAL AIRWAY REMOVED. GLUCOSE CHECKED 200.
--- NOTE | 2019-04-10 17:22 | NUR ---
REMOVED DRESSING THAT WERE TOO TIGHT ON HER ARMS. IVS AND SKIN LEAKING. PLACED WHITE CHUCKS UNDER SIDES AND CHANGED GOWN. DAUGHTER OF PT ASSISTED. PT TOLERATED FAIRLY WELL WITH SLIGHTLY INCREASED MOANING. HAD GIVEN MORPH PRIOR.
--- NOTE | 2019-04-10 18:24 | NUR ---
PT BACK TO FLOOR. TRANSFERED TO BED WITH DRAW SHEET AND STAFF. PT TOLERTED WELL. GIVEN ICE CHIP FOR DRY MOUTH. SETTING UP PATIENT'S LIBRARIAN SOON POSS.
--- NOTE | 2019-04-10 19:39 | NUR ---
RECEIVED REPORT FROM DAY SHIFT RN. PATIENT IS RESTING IN BED. PATIENT GIVEN PRN ZOFRAN FOR NAUSEA AND TORADAL PRN FOR PAIN. PATIENTS DAUGHTER AND ARE PRESENT IN THE ROOM. CALL LIGHT IN REACH.
--- NOTE | 2019-04-10 20:15 | NUR ---
PATIENT PLACED ON AIR TRAFFIC CONTROL MANAGER PER ORDER. AIR TRAFFIC CONTROL MANAGER EDUCATION PROVIDED. PATIENT VERBALIZES UNDERSTANDING. PATIENT PUSHED AIR TRAFFIC CONTROL MANAGER FOR 9/10 PAIN IN HER UPPERD ABD. PATIENT IS NAUSEOUS AND IS SITTING UP HIGH IN BED. PATIENT GIVEN PRN NAUSEA MEDICATION. PATIENT IS ON 2L VIA NC. CPOX IN USE. RT IN ROOM TO PLACE HUMIDIFICATION W/OXYGEN. PATIENTS DAUGHTER AND ARE IN THE ROOM. NO FURTHER NEEDS NOTED CALL LIGHT IN REACH.
--- NOTE | 2019-04-10 21:10 | NUR ---
PT CALLED SAID HIS NEEDED SOMETHING. PT WANTED A DRINK WATER, STATED I JUST GAVE HER SOME, PT TOOK A SIP WATER. THEN SAID SHE WANTED TO "GET UP". PT ORIENDED TO TO PLACE AND EVENT; DID NOT REQUEST TO GET UP WHEN ASKED.
--- NOTE | 2019-04-10 21:10 | NUR ---
PATIENT ASSESMENT COMPLETED. PATIENT GIVEN EVENING MEDICATIONS. PATIENT IS TOLERATING SIPS OF WATER. DENIES ANY NAUSEA. PATIENT FALLS ASLEEP EASILY DURING CARE. PATIENT CONTINUES TO USE PC FOR PAIN. PATIENTS VITALS TAKEN AND RECORDED BY YUE SHELTON. ECKERT AND GIA DRAINED BY YUE SHELTON. GIA IS PUTTING OUT A SMALL AMOUNT OF SEROSANGUIONOUS FLUID. INTAKE AND OUPUT RECORDED. CPOX IN USE. PATIENT REMAINS ON 2L VIA NC. PATIENTS MID ABD INCISION IS C/D/I AND NO DRAINAGE NOTED. PATIENTS ECKERT IS DRAINING CLEAR YELLOW URINE. NO NO FURTHER NEEDS NOTED. CALL LIGHT IN REACH.
--- NOTE | 2019-04-10 21:20 | NUR ---
CALLED FOR HIS . PT COMPLAINED OF FEELING NAUSEATED, BUT AFTER TALKING TO PT TO RELAX, SHE WENT TO SLEEP AND WHEN LOUDLY ON PHONE KEPT WAKING HER UP. SHE COMPLAINED OF MOUTH DRYNESS. SWAB GIVEN, STATED RELIEF. ENCOURAGED PT TO TRY TO RELAX, ONCE SHE DOES SHE SLEEPS, WITH RESP EVEN UNLABORED.
--- NOTE | 2019-04-10 22:57 | NUR ---
PATIENT IS RESTING IN BED WITH EYES CLOSED, CPOX READINGS ARE WNL. CALL LIGHT IN REACH. ASLEEP ON COUCH.
--- NOTE | 2019-04-10 23:35 | NUR ---
PATIENTS SCHEDULED TYLENOL GIVEN PER ORDER. PATIENT PROVIDED WITH A FAN. PATIENT DENIES ANY NAUSEA. PATIENT RATES PAIN AT A 2/10. PATIENT DENIES ANY NEEDS. CALL LIGHT IN REACH.
--- NOTE | 2019-04-11 01:30 | NUR ---
PATIENTS VITALS TAKEN AND RECORDED. INTAKE AND OUTPUT RECORDED. ECKERT EMPTIED. PATIENT REMAINS ON 2L VIA NC. ABD DRESSING C/D/I AND NO DRAINAGE NOTED. PATIENT DENIES ANY NAUSEA OR PAIN. PATIENT DENIES ANY NEEDS. IS PRESENT IN THE ROOM ON THE COUCH AND WOKE UP BRIEFLY. CALL LIGHT IN REACH.
--- NOTE | 2019-04-11 02:56 | NUR ---
PATIENT IS RESTING IN BED WITH EYES CLSOED, CPOX READINGS ARE WNL. CALL LIGHT IN REACH.
--- NOTE | 2019-04-11 04:39 | NUR ---
PATIENT IS ON A CLEAR LIQUID DIET, AND ONLY TOLERATING SIPS OF WATER. NAUSEA NOTED AND PRN MEDICATION GIVEN AT THE BEGINNING OF THE SHIFT. PATIENT HAS MID ABD SURGICAL INCISION DRESSING THAT IS C/D/I AND NO DRAINAGE IS NOTED. PATIENT HAS GIA IN LLQ AND IS PUTTING OUT A SMALL AMOUNT OF SEROSANGIONOUS FLUID. PATIENT IS ON 2L VIA NC AND CPOX IS IN USE. PATIENT HAS SCDS IN USE. PATIENT HAS CARDIOVASCULAR DISEASE SPECIALIST AVAIALBLE FOR PAIN CONTROL AND HAS USED A MINIMAL AMOUNT. PATIENT HAS IV INFUSING PER ORDER. PATIENT HAS NOT BEEN OUT OF BED SINCE SURGERY. PATIENT IS AAOX4 AND USES CALL LIGHT APPROPRIATELY. STAYED WITH PATIENT.
--- NOTE | 2019-04-11 06:06 | NUR ---
PATIENTS VITALS TAKEN AND RECORDED. PATIENT IS RESTING IN BED. PATIENT RATES PAIN AT A 1/10. PATIENT GIVEN SCHEDULED TYLENOL PER ORDER. PATIENT CONTINUES TO HAVE CARTRIDGE FEEDER AVAILABLE BUT HAS NOT USED SINCE BEGINNING OF THE SHIFT. PATIENT DENIES ANY NAUSEA. PATIENT PROVIDED WITH BROTH AND ICE CHIPS. PATIENTS PROVIDED WITH COFEE. PATIENTS ECKERT EMPTIED. PATIENTS INTAKE AND OUTPUT RECORDED. PATIENT DENIES ANY FURTHER NEEDS. CALL LIGHT IN REACH.
--- NOTE | 2019-04-11 07:12 | NUR ---
PER PT PRIMARY RN, THIS RN CLARIFIED WITH DR WOMACK, THE NEED FOR ANTIBIOTICS PT HAS NONE ORDERED. ORDERS RECEIVED.
--- NOTE | 2019-04-11 07:33 | NUR ---
0705: BEDSIDE REPORT RECIEVED FROM SUZIE SOARES. PT RESTING IN HER BED AND SHE DENIES ANY PAIN OR NAUSEA AT THIS TIME. CALL MOORE AND BLENDER MACHINE OPERATOR WITHIN REACH.
--- NOTE | 2019-04-11 08:16 | NUR ---
MIDLINE ABD INCISION SITE DRESSING INTACT WITH A SCANT AMOUNT OF OLD DRAINAGED NOTED AND NO S/S OF INFECTION AROUND THE DRESSING. LLQ GIA DRESSING IS CDI AND THE GIA IS DRAINING WITHOUT ANY PROBLEMS. PT STATES HER PAIN IS A 7 AND SHE PUSHED HER MARKETING EDITOR BUTTON AND QUICKLY FELL TO SLEEP. SAT IS 91% AT THIS TIME. PT DENIES ANY OTHER PROBLEMS OTHER THAN HER PAIN, WILL CONTINUE TO MONITOR. PT REAMINS ON PULSE OX.
--- NOTE | 2019-04-11 09:21 | NUR ---
PT STATES HER PAIN IS DOING "PRETTY GOOD" AT THIS TIME.
--- NOTE | 2019-04-11 11:03 | NUR ---
PT STATES HER ABD PAIN IS A 4 AND IS ACCEPTABLE TO HER. DRESSINGS REMAIN INTACT AND UNCHANGED. PT ASSISTED TO THE CHIAR AND SHE IS NOW SITTING UP AND IS WATCHING TV WITH HER SPOUSE. CALL MOORE WITHIN REACH.
--- NOTE | 2019-04-11 12:00 | NUR ---
Carlin ARANGO'caroline as ordered at this time. Pt states her abd pain remains tolerable. She is sitting up in her chair eating lunch now. IV rate changed as ordered.
--- NOTE | 2019-04-11 13:08 | NUR ---
PT ASSISTED TO THE BR AND SHE WAS ABLE TO VOID WITHOUT DIFFICULTY FOLLOWING HER ECKERT REMOVAL. THE PT'S PAIN INCREASED FROM A 3-4 TO AN 8-9 WITH THE ACTIVITY AND SHE USED HER VETERINARY MILK SPECIALIST AT THIS TIME AND WAS ASSISTED BACK TO HER BED PER HER REQUEST. NO OTHER NOTED CHANGE IN CONDITION. SEE ASSESSMENT.
--- NOTE | 2019-04-11 15:08 | NUR ---
Pt visiting with her spouse and watching tv, she states her pain is "good".
--- NOTE | 2019-04-11 16:03 | NUR ---
Pt states her pain has increased to an 8 with getting up and using the br. She denies the need for anything and wishes to wait and see if the pain lights back up now that she is back in her bed. Pt remains on the COLLEGE TUTOR and understands it's use.
--- NOTE | 2019-04-11 16:17 | NUR ---
patient up to bathroom, and said she was expieriencing pain nurse notified
--- NOTE | 2019-04-11 16:32 | NUR ---
Pt now states her pain is a 5/10 which is acceptable to her. Sat 96% on room air.
--- NOTE | 2019-04-11 17:52 | NUR ---
PT USED 8 MG OF IV MS VIA HER INFUSION PHARMACIST THIS SHIFT FOR HER ABD INCISIONAL PAIN. PT ATE HER CLEAR LIQUID DIET AND TOLERATED IT WELL WITH NO NAUSEA OR RELATED PROBLEMS TODAY. MID LINE INCISION SITE REMAINS INTACT WITH A SCANT AMOUNT OF OLD DRAINAGE. THE GIA DRESSING IS CDI AND THE GIA IS DRAINING A SMALL AMOUNT WITHOUT ANY NOTED PROBLEMS. PT WAS UP TO HER CHAIR FOR SEVERAL HOURS TODAY AND WAS ABLE TO AMBULATE TO THE BR WITH A SBA.
--- NOTE | 2019-04-11 19:26 | NUR ---
SHIFT REPORT RECIEVED FROM CORDELIA SOARES. PT PAIN 09/18 IN ABD. PT DENIES NEED FOR INTERVENTION. PT EDUCATED ON ICU STAFF NURSE. NO OTHER NEEDS. CALL LIGHT IN REACH.
--- NOTE | 2019-04-11 20:59 | NUR ---
VITALS AND I&OS DONE AN DCHARTED. BEDSIDE TABLE AND CALL LIGHT IN REACH.
--- NOTE | 2019-04-11 21:04 | NUR ---
ASSESSMENT COMPLETED. INCISIONS DRY, WNL. ONE SPOT OF DRY BLOOD ON MIDLINE BANDAGE. PRN PAIN MED GIVEN FOR 7/10 ABD PAIN. IV CDI, WNL, FLUSHED WELL. NO OTHER NEEDS. CALL LIGHT IN REACH.
--- NOTE | 2019-04-11 23:17 | NUR ---
PT RESTING IN BED, EYES CLOSED. RR 14, EVEN, UNLABORED. CALL LIGHT IN REACH.
--- NOTE | 2019-04-12 01:15 | NUR ---
PT RESTING IN BED, EYES CLOSED. RR 12, EVEN, UNLABORED. IV FLUIDS INFUSING PER ORDER. CALL LIGHT IN REACH.
--- NOTE | 2019-04-12 02:09 | NUR ---
HELPED PT TO THE BATHROOM AND BACK TO BED. BEDSIDE TABLE AND CALL LIGHT IN REACH. PT NEEDS NOTHING MORE AT THIS TIME.
--- NOTE | 2019-04-12 03:04 | NUR ---
PT AWAKE IN ROOM. NEW BAG IV FLUIDS PROVIDED. GIA EMPTIED. SCDs ON. ASSESSMENT COMPLETED. INCISION COVERED, WNL. SMALL AREA OF DRIED BLOOD ON MIDLINE, GIA SITE CLEAN. NO OTHER NEEDS. CALL LIGHT IN REACH.
--- NOTE | 2019-04-12 06:20 | NUR ---
PT UP TO BR AND BACK TO BED. SCHEDULED MED PROVIDED. SCDs ON, CPOX 97% RA. VS AND I & O COMPLETED. ICE WATER PROVIDED. NO OTHER NEEDS. CALL LIGHT IN REACH.
--- NOTE | 2019-04-12 06:43 | NUR ---
PT COMPLAINS ABD PAIN 11/18. PRN PAIN MED PROVIDED. NO OTHER NEEDS. CALL LIGHT IN REACH.
--- NOTE | 2019-04-12 06:46 | NUR ---
PT SLEPT MOST THE SHIFT. PAIN MANAGED WITH PRN PAIN MED AND RETURN CLERK. INCISIONS COVERED. MIDLINE HAS ONE DRY SPOT OF BLOOD. GIA SITE, CDI, WNL, SANGUINOUS OUTPUT. TOLERATED SCDs AND CLEAR DIET WELL. IV CDI, WNL, FLUSHED WELL. CPOX RANGING IN MID 90S ON ROOM AIR.
--- NOTE | 2019-04-12 07:15 | NUR ---
BEDSIDE HANDOFF REPORT RECEIVED FROM ACCOUNTS PAYABLE SPECIALIST RN. PT SLEEPING, LEFT UNDISTURBED.
--- NOTE | 2019-04-12 07:45 | NUR ---
PT REPORTING INCREASED PAIN, 7/10 TO ABD INCISION, PT ENCOURAGED TO USE SENIOR TELECOMMUNICATIONS CONSULTANT IF NEEDED, PO TYLENOL GIVEN. PT ON ROOM AIR, LUNG SOUNDS CLEAR, DENIES SOB. PT DENIES NAUSEA, TOLERATING CLEAR LIQUID DIET, BOWEL TONES ACTIVE, PT REPORT OF PASSING FLATUS. CMS INTACT, WITHOUT EDEMA. IV FLUIDS INFUSING D5LR AT 75 ML/HR, FLAGYL INFUSING. ABD INCISION WITH MEPILEX AND OPSITE, SMALL AMOUNT OF OLD DRIED DRAINAGE. GIA TO LEFT LOWER ABD, DRESSING CDI, DRAIN WITH SEROSANGUINOUS FLUID. DISCUSSED PLAN OF CARE AND PAIN MANAGEMENT FOR THE DAY, ENCOURAGED WALKING AND OOB ACTIVITY. PT DENIES OTHER NEEDS AT THIS TIME.
--- NOTE | 2019-04-12 11:15 | NUR ---
PT SALINE LOCKED FOR SHOWER.
--- NOTE | 2019-04-12 11:41 | NUR ---
PATIENT TOOK A SHOWER HER HELPED HER. CHANGED BED LINENS.
--- NOTE | 2019-04-12 11:46 | NUR ---
ATTEMPTED TO VISIT WITH PT, SHE WAS IN THE SHOWER. I WILL RETURN TO THIS LATER TODAY.
--- NOTE | 2019-04-12 11:52 | NUR ---
PT REATING IN BED, TRA AT BS. PT HAS HAD EXTENSIVE SURGERY OVER NEW YEAR'S, AND SEEMS TO BE WEATHERING HER RECOVERY APPROPRIATELY. DOESN'T CARE MUCH FOR LO THOUGH! HAD GOOD VISIT, EXTENDED A BLESSING. WILL FOLLOW NEEDED
--- NOTE | 2019-04-12 12:09 | NUR ---
PT COMPLETED WITH SHOWER. IV FLUIDS RESUMED. PT WITH INCREASED PAIN AFTER ACTIVITY, NOT TIME FOR TYLENOL OR TORADOL, MORPHINE WOOD ROUTER HAND USED. PT BLOOD GLUCOSE 105, SS HUMALOG HELD. PT DENIES OTHER NEEDS AT THIS TIME.
--- NOTE | 2019-04-12 14:24 | NUR ---
TALKED WITH PT AND HER REGARDING HER SURGERY AND RECOVERY. PT STATES SHE UNDERSTANDS WHAT DR WOMACK DID AND WHAT SHE NEEDS TO DO TO GET BACK UP AND GO HOME. SHE STATES "SHE AND THEY ARE WORKING ON GETTING HER OFF THE SAND MIXER. SHE SAID WE ARE DOING HALF AND HALF. STATES SHE HAS BEEN UP AND WALKING, TOOK A SHOWER THIS AM. SAYS HER PAIN AT THIS TIME IF A 6/10 AT THIS TIME. STATING A TOLERABLE PAIN FOR HER IS LIKE A 2-3/10. WE ALSO TALKED ABOUT DIET AND THINGS THAT SHE MIGHT HAVE TROUBLE WITH SINCE HER GALLBLADDER WAS REMOVED I.E. FAT AND GREASEY FOODS.
--- NOTE | 2019-04-12 14:45 | NUR ---
PT WITH PAIN 74/10 TO ABD, OFFERED MOTRIN PO, PT STATES DUE TO HER GASTROPARESIS MOTRIN MAKES HER NAUSEATED, AFTER PREVIOUS SURGERY PT FELT SICK FOR SEVERAL WEEKS WHILE TAKING MOTRIN. PT GIVEN TORADOL PER ORDER, DISCUSSED PO TYLENOL SCHEDULE. PT ADVANCED TO FULL LIQUID DIET, ASSSITED WITH ORDERING LUNCH. DISCUSSED WALK AFTER EATING. PT DENIES OTHER NEEDS AT THIS TIME.
--- NOTE | 2019-04-12 15:36 | NUR ---
PT REPORTS PAIN IS BEGINNING TO IMPROVE. TOLERATED FULL LIQUID DIET. PT ASSISTED TO WALK IN MIN, SBA, COMPLETED 1 LAP AROUND NURSING FLOOR. PT DENIES OTHER NEEDS AT THIS TIME
--- NOTE | 2019-04-12 18:02 | NUR ---
PT ASSISTED TO WALK IN MIN, COMPLETED 2 LAPS AROUND NURSING FLOOR WITH SBA, TOLERATED ACTIVITY WELL. PT ATE 100% OF DINNER, DENIES NAUSEA. PT NOW RESTING IN BED. PT DENIES OTHER NEEDS AT THIS TIME.
--- NOTE | 2019-04-12 18:04 | NUR ---
PT ADVANCED TO FULL LIQUID DIET, TOLERATING WELL. PAIN WELL CONTROLLED WITH TORADOL AND PO TYLENOL, PT REFUSED MOTRIN IT MAKES HER FEEL NAUSEATED. PT RECEIEVED 3.4 MG OF MORPHINE SUPPLY SPECIALIST THROUGHOUT SHIFT, D5LR @75 ML/HR. PT WALKED IN MIN X2 AND SHOWERED, DISCUSSED WALKING AND OOB AND PT AGREEABLE. GIA DRAIN REMOVED BY DR. WOMACK, MIDLINE INCISION WITH OLD DRAINAGE UNCHANGED. PT VOIDING QS, PASSING FLATUS, NO BM YET.
--- NOTE | 2019-04-12 19:15 | NUR ---
DID BLOOD SUGAR CHECK LUNCH AND DINNER.
--- NOTE | 2019-04-12 19:26 | NUR ---
SHIFT REPORT RECIEVED FROM GERRY SOARES. PT RESTING IN BED, WATCHING TV. SPOUSE IN ROOM. PAIN 5/10 IN ABDOMEN. PT DENIES THE NEED FOR FURTHER PAIN INTERVENTION. NO OTHER NEEDS. CALL LIGHT IN REACH.
--- NOTE | 2019-04-12 20:42 | NUR ---
ASSESSMENT, VS, I&O AND CBG COMPLETED. SCHEDULED MEDS PROVIDED. PAIN 5/10 IN RLQ. PT DECLINES PAIN INTERVENTIONS. CERTIFIED PERSONAL TRAINER AT 0mg FOR THE SHIFT. IV FLUIDS INFUSING PER ORDER. IV WNL, FLUSHED WELL. ICE WATER PROVIDED. NO OTHER NEEDS, CALL LIGHT IN REACH.
--- NOTE | 2019-04-12 22:30 | NUR ---
PT RESTING IN BED, EYES CLOSED. RR 14, EVEN, UNLABORED. CALL LIGHT IN REACH.
--- NOTE | 2019-04-12 23:45 | NUR ---
PT COMPLAINS OF 7/10 ABD PAIN. PRN PAIN MED PROVIDED. NO OTHER NEEDS. CALL LIGHT IN REACH.
--- NOTE | 2019-04-13 00:36 | NUR ---
PT RESTING IN BED, EYES CLOSED. RR 16, EVEN, UNLABORED. CALL LIGHT IN REACH.
--- NOTE | 2019-04-13 02:24 | NUR ---
PT RESTING IN BED, EYES CLOSED. RR 16, EVEN, UNLABORED. CALL LIGHT IN REACH.
--- NOTE | 2019-04-13 04:56 | NUR ---
PT HAS SLEPT MOST THE SHIFT. PAIN MANAGED WITH ADVERTISING AGENCY MANAGER AND PRN PAIN MEDS. INCISIONS WNL. MIDLINE DRESSING HAS ONE SMALL AREA OF DRIED BLOOD. PT WALKED HALLS ONCE AND TOLERATED FULL LIQUID DIET WELL. CBG MANAGED WITH PRN INSULIN. IV DRY, INTACT, FLUSHED WELL.
--- NOTE | 2019-04-13 06:38 | NUR ---
SCHEDULED MED PROVIDED. NO OTHER NEEDS AT THIS TIME. CALL LIGHT IN REACH.
--- NOTE | 2019-04-13 07:14 | NUR ---
DID PATIENT'S BLOOD SUGAR CHECK. WASHING HER FACE WILL DO ORAL CARE AFTER SHE EATS BREAKFAST. ALSO SHE SAID SHE MIGHT TAKE A SHOWER.
--- NOTE | 2019-04-13 07:22 | NUR ---
0705: BEDSIDE REPORT RECIEVED FROM LEANNA SOARES. PT RESTING IN HER BED AND STATES HER PAIN IS WELL CONTROLED AT THIS TIME. CALL MOORE WITHIN REACH.
--- NOTE | 2019-04-13 07:50 | NUR ---
PT RESTING IN HER BED AND SHE STATES HER PAIN IS UNDER CONTROL AND THAT SHE WAS ABLE TO WALK 5 LAPS YESTERDAY. THE MIDLINE DRESSING REMAINS INTACT WITH A SCANT AMOUNT OF OLD DRAINAGE AND WITHOUT ANY S/S OF INFECTION AROUND THE DRESSING. THE OLD GIA DRAIN SITE HAS CDI GAUZE AND TAPE ALSO WITHOUT ANY NOTED PROBLMES. SCD'S ON AND RUNNING AND CPOX IS ON AND HER SAT IS 95% ON ROOM AIR. D5LR IV FLUID IS RUNNING TO THE RIGHT AC SITE AT 75ML/HR AND SHE HAS HER MINIBUS DRIVER BUTTON.
--- NOTE | 2019-04-13 09:29 | NUR ---
0920: DR WOMACK IN THE ROOM SEEING THE PT WITH HER PRESENT. MIDLINE ABD DRESSING AND LLQ OLD GIA DRESSINGS REMOVED ORDERED, SITES ALL APPEAR HEALTHY. PT TOLERATED THE DRESSING REMOVALS WELL. PT STATES SHE WILL SHOWER TODAY.
--- NOTE | 2019-04-13 09:49 | OR ---
[facility] [address], [place] [address] Signed DATE OF OPERATION: 04/10/2019 SURGEON: Popeye Womack MD PREOPERATIVE DIAGNOSES: 1. Acute peritonitis, right upper quadrant mckayla-anastomotic air bubbles, and left lower quadrant air bubbles. 2. Acalculous cholecystitis (CCK ejection fraction 0%). 3. Diabetes mellitus. 4. History of drainage of intraabdominal abscess, segmental colonic resection for perforated colon cancer with loop ileostomy and subsequent takedown of loop ileostomy in January 2019. POSTOPERATIVE DIAGNOSES: 1. Acute acalculous cholecystitis. 2. Inflamed enteroenterostomy with interloop fluid collection without obvious perforation. 3. Taenia epiploic appendagitis. 4. Chronic appendicitis with fecalith. PROCEDURE: 1. Laparoscopy with adhesiolysis. 2. Conversion to laparotomy with resection of prior ileoileostomy with end-to-end enteroenterostomy. 3. Excision of inflamed appendix epiploica. 4. Open appendectomy. 5. Open cholecystectomy withOUT cholangiogram. BAKERY ASSISTANT: Nurse (Haylee Rice RN). ANESTHESIA: General endotracheal; Popeye Dexter CRNA. INDICATION: This 63-year-old obese white woman with diabetes presented in January with left upper quadrant abscess requiring operation, which included drainage of the abscess and segmental colectomy for what turned out to be perforated colon cancer. She underwent a primary anastomosis with a diverting loop ileostomy in the right upper abdomen. She had takedown of the loop ileostomy within 8 days of its formation after noting a normal Electronically Signed By: POPEYE WOMACK MD 04/13/19 0949 PATIENT NAME: CAPRICE AMADOR OPERATIVE REPORT DATE OF : 55 REPORT #: [id number] PHYSICIAN: POPEYE WOMACK MD PCP: YOKASTA MILLS REPORT IS CONFIDENTIAL AND NOT TO BE RELEASED WITHOUT AUTHORIZATION [facility] [address], [place] [address] Signed contrast study affirming the colonic anastomosis to be patent and without leak. Early takedown of the ileostomy was due to problems of managing the ileostomy. She has done quite well since that time. She presented yesterday with severe right upper abdominal pain and was evaluated in the emergency room by Dr. Gomez and a CT scan was performed, which showed inflammatory changes in the area of prior takedown of ileostomy, multiple diverticula of the sigmoid, and some air bubbles associated with the enteroenterostomy as well as some pericolonic air bubbles. She was treated with broad-spectrum antibiotics, intravenous fluids, and so forth and clinical examination shows her to have marked tenderness in the right upper quadrant. She has a strong family history of biliary disease and on that basis she underwent CCK-HIDA test. This was performed earlier today, which showed an ejection fraction of 0%. Though she is improved regarding pain and has tenderness only in the right upper quadrant, I recommended laparoscopy with possible cholecystectomy and other indicated procedures depending on findings. It is acknowledged that her gallbladder function is markedly abnormal and with her underlying diabetes and so forth that may be the only problem there is, however, the air bubbles associated with right upper abdomen and those in the region of the sigmoid are also of concern and evaluation of those will be undertaken as well. She understands as does her the risk of bleeding, infection, bile duct injury, need for open procedure, need for other indicated procedures. FINDINGS: On laparoscopy which was performed in the low abdomen, there were multiple adhesions as might be expected given the timeframe since operation in January. There was a segment of small bowel that was markedly inflamed, though not ischemic. Gallbladder itself was chronically inflamed and markedly distended. The liver had fatty infiltration and chronic inflammatory changes. Adhesions were taken down and the area of anastomosis appeared to be a dense white chronically inflamed masslike area. Conversion to open operation revealed the anastomosis to be with a firm fibrinous peel, markedly inflamed and gummy, and with an interloop fluid collection, but no actual perforation proper. There was inflamed taenia epiploica, which is unlikely to be the sole source of her problem and that was excised. The appendix was elongated, slightly dilated and had palpable fecaliths within it and it was excised. There were numerous diverticula of the sigmoid colon. No sign of actual perforation there or abscess. The drain was placed in the region anyway. The gallbladder itself was tense and distended, and cholecystectomy was performed without problem. Resection of the prior anastomosis of the small bowel was undertaken with an end-to-end anastomosis. DESCRIPTION OF PROCEDURE: The patient was brought to the operating room, given a general endotracheal anesthetic. Preoperative antibiotic, Levaquin and Flagyl had been given. Sequential compression Electronically Signed By: POPEYE WOMACK MD 04/13/19 0949 PATIENT NAME: CAPRICE AMADOR OPERATIVE REPORT DATE OF : 55 REPORT #: [id number] PHYSICIAN: POPEYE WOMACK MD PCP: YOKASTA MILLS REPORT IS CONFIDENTIAL AND NOT TO BE RELEASED WITHOUT AUTHORIZATION [address] [address] Signed device stockings were used. After satisfactory general endotracheal anesthesia, the abdomen was prepared with chlorhexidine solution and draped sterilely. The previous midline incision extended from the xiphoid to around the umbilicus inferiorly. An incision was made inferior to that and using an open Ashwini cannula technique, pneumoperitoneum was achieved to 14 mmHg of carbon dioxide gas. Intraabdominal inspection was undertaken and blunt takedown of omental adhesions and fibrinous adhesions to the anterior abdominal wall was undertaken. There was a segment of small bowel that looked particularly inflamed as well as a tubular structure, which later was found to be taenia epiploica. The gallbladder was visualized. It was tense and distended, somewhat greenish in color, but by no means gangrenous. The liver was fatty infiltrated and chronically inflamed. After adhesions were taken down, no further progress could assuredly be made, particularly given interloop adhesions and on that basis, conversion to open operation was advisable. Trocar was removed and midline incision was made, abdomen entered. Care was taken upon entry to avoid the adhesive properties of the intraabdominal contents. The omentum was placed over the abdominal contents previously, which provided a good barrier. The abdomen was ultimately freed up and the area of the prior anastomosis was found to be firm and gummy and chronically inflamed. Did appear to be patent, there was no sign of purulence in the area. The loops though previously formed in an end-to-end configuration were freed and the mesenteric space between the 2 segments of bowel was opened and there appeared to be a fluid-like collection there, possibly air as well, but again no perforation. This was deemed most appropriate to treat by segmental resection and anastomosis. The mesentery to the area was sequentially scored and secured with hemostats and the vascular pedicle secured with 0 silk ties. Two Brando clamps were applied across the normal bowel proximally and distally to the previous anastomosis and an end-to-end enteroenterostomy undertaken in a 2-layer technique with interrupted 3-0 silk suture for the serosal layer and interrupted 3-0 Vicryl for the mucosal layer. The mesenteric defect was secured with silk. Found also was an inflamed appendix epiploica, so-called "appendagitis." This was excised and its vascular pedicle secured with a silk tie. This passed for Pathology. Cultures were obtained in the left lower abdomen where there was some turbid fluid, and the sigmoid and left colon examined, finding no large diverticula. There was no evidence of perforation in that area. Attention was turned towards the gallbladder. The gallbladder was tensed and distended. A Bookwalter retractor was affixed to the table and a ring clamp applied to the gallbladder. The peritoneum of the gallbladder was incised with electrocautery, dissected down to the infundibulum, and clips applied to cystic arterial branches as necessary. The cystic duct was ultimately identified, doubly clipped and divided and the gallbladder excised. Opening of the gallbladder showed chronic inflammatory change and cholesterolosis, but no stones and no neoplasm. Electronically Signed By: POPEYE WOMACK MD 04/13/19 0949 PATIENT NAME: CAPRICE AMADOR OPERATIVE REPORT DATE OF : 55 REPORT #: [id number] PHYSICIAN: POPEYE WOMACK MD PCP: YOKASTA MILLS REPORT IS CONFIDENTIAL AND NOT TO BE RELEASED WITHOUT AUTHORIZATION [facility] [address] [place] [id number] Signed Additional examination showed the cecum to have an appendix that was dilated and long and had palpable fecaliths within it. On that basis, appendectomy was deemed advisable. Mesentery was isolated and secured with hemostats, secured subsequently with 0 silk ties and skeletonizing the appendix. The base of the appendix was crushed with a hemostat, milked distally and the crush hillary secured with a 2-0 Vicryl tie. The appendix was amputated, stump was cauterized and inverted with interrupted 3-0 silk suture. Irrigation was then undertaken throughout the abdomen, fully cleansing all quadrants of the abdomen. There was no sign of well-formed abscess. Through left lower quadrant stab incision, a 7 mm flat Mario drain was placed into the pelvis. Excess irrigation fluid was suctioned free. Anastomosis and other operative sites examined for hemostasis and plans made for closure. The omentum was placed over the abdominal contents. Midline fascia was reapproximated with running bidirectional #1 PDS suture, subcutaneous tissue irrigated and the skin closed with running subcuticular 3-0 Vicryl, Steri-Strips were applied as was a silver sponge dressing. The patient tolerated procedure well. Blood loss was less than 50 mL. Sponge, needle, and instrument counts were reported as correct x3. The operation was prolonged, complicated, and difficult as noted, lasting 3 times longer than would be expected. MD CLEMENT Landon/YESICAL /[id number] cc: MD Yokasta Ho PA Copies: HERB GOMEZ MD, RANDALL PA ~ Electronically Signed By: POPEYE WOMACK MD 04/13/19 0949 PATIENT NAME: CAPRICE AMADOR OPERATIVE REPORT DATE OF : 55 REPORT #: [id number] PHYSICIAN: POPEYE WOMACK MD PCP: YOKASTA MILLS REPORT IS CONFIDENTIAL AND NOT TO BE RELEASED WITHOUT AUTHORIZATION
--- NOTE | 2019-04-13 09:49 | HP ---
[facility] [address], [place] [address] Signed ADMISSION DATE: 04/09/2019 REASON FOR ADMISSION: Right-sided abdominal pain. HISTORY OF PRESENT ILLNESS: This 63-year-old white woman is well known to me from the past. In January, she suffered a left upper quadrant abscess, which was found related to perforated colon cancer. She underwent segmental resection of the upper portion of the left colon and mid transverse colon with primary anastomosis and protective loop ileostomy. On postoperative day #8, she underwent takedown of the loop ileostomy without complication, was subsequently discharged home and doing well. She presented to the emergency room today, having suffered the onset of right-sided abdominal pain two nights ago. Today, the pain was rather unrelenting and worsened with movement. She presented to the emergency room where she was thoroughly evaluated by Dr. Yan. A gallbladder ultrasound was performed, which showed a normal-appearing gallbladder and no other findings of concern. Subsequently, a CT scan of the abdomen with IV but with no GI contrast was undertaken. This showed the peculiar findings of marked inflammatory change in the region of ileoileostomy and numerous diverticula of the remaining left and sigmoid colon and small air bubbles outside the area of loop ileostomy takedown and most strangely a small apparent lucency within the spleen as well as some extraluminal air of the left colon. The gallbladder itself looked reasonably normal. The patient has been able to eat without any problem up until two days ago. She has had no nausea or vomiting. FAMILY HISTORY: Highly significant for daughter and other family members with cholecystitis requiring cholecystectomy. PAST MEDICAL HISTORY: Includes type 2 diabetes and prior history of myocardial infarction with stents 17 years ago. She has smoked in the past. PAST SURGICAL HISTORY: Includes hysterectomy, cervical fusion 3 years ago, and segmental colectomy with anastomosis as described in January 2019. Electronically Signed By: POPEYE WOMACK MD 04/13/19 0949 PATIENT NAME: CAPRICE AMADOR HISTORY AND PHYSICAL DATE OF : 55 REPORT #: [id number] PHYSICIAN: POPEYE WOMACK MD PCP: YOKASTA MILLS REPORT IS CONFIDENTIAL AND NOT TO BE RELEASED WITHOUT AUTHORIZATION [facility] [address], [place] [address] Signed ALLERGIES: She has allergies to penicillin. MEDICATIONS: At home include nicotine 21 mg patches daily. Other medicines include sertraline 50 mg p.o. daily, Carafate 10 mg at bedtime, insulin (NovoLog 70/30) 15 units subcu b.i.d. with meals, pravastatin 40 mg p.o. at bedtime, glyburide one tab p.o. daily, gabapentin one to three caps p.o. at bedtime for restless legs, carvedilol 25 mg p.o. b.i.d. with meals, losartan 50 mg p.o. daily, and hydrochlorothiazide 12.5 mg p.o. p.r.n. leg edema. REVIEW OF SYSTEMS: She denies any right subscapular pain. Her pain is right-sided most dominantly. She has no shortness of breath. No dysphagia. No hematemesis or blood per rectum. PHYSICAL EXAMINATION: GENERAL: Obese white woman accompanied by her son and her . She does not look systemically toxic. HEENT: Mucous membranes are dry. Trachea is midline. CHEST: Clear. HEART: Regular without murmur. ABDOMEN: Obese. A well-healed midline incision is noted and a small transverse right upper quadrant ileostomy incision also well healed. There is no crepitus in the skin. No erythema of the skin. She has marked tenderness in the right subcostal area. Left lower abdomen has mild tenderness, not too much actually, however. EXTREMITIES: Show no clubbing, cyanosis, or edema. LABORATORY STUDIES: Show white count 9.2, hematocrit 36.4, and platelets 310,000. Electrolytes are normal. Alkaline phosphatase 99, total protein 7.6, ALT 7, AST 11, bilirubin 0.8, calcium 10.1, and glucose 126. I have reviewed the CT scan in detail with Dr. Velez, reviewed the report from the ultrasound. ASSESSMENT: It is always troubling to have any amount of free air noted. Small bubbles are interpreted as in relation to the takedown of the ileostomy. She does have marked tenderness in the area. There are some small bubbles in conjunction with the sigmoid colon, which has profound diverticular disease but no sign of actual acute diverticulitis that I can tell. I am concern most dominantly for possible acalculous cholecystitis considering her ultrasound findings, family history, location of her tenderness and so on. She is to be started on broad-spectrum antibiotic regimen, but will also get a HIDA test to assess Electronically Signed By: POPEYE WOMACK MD 04/13/19 0949 PATIENT NAME: CAPRICE AMADOR HISTORY AND PHYSICAL DATE OF : 55 REPORT #: [id number] PHYSICIAN: POPEYE WOMACK MD PCP: YOKASTA MILLS REPORT IS CONFIDENTIAL AND NOT TO BE RELEASED WITHOUT AUTHORIZATION [address] [address] Signed for possible acalculous cholecystitis, specifically so because of her underlying diabetes as well. I discussed this with the patient, her son, and her in great detail. We will plan for the study tomorrow morning as it is late in the day to have a nuclear medicine study of any sort. MD CLEMENT Landon/EBENEZER /[id number] cc: Dr. Yan Copies: ~ Electronically Signed By: POPEYE WOMACK MD 04/13/19 0949 PATIENT NAME: CAPRICE AMADOR HISTORY AND PHYSICAL DATE OF : 55 REPORT #: [id number] PHYSICIAN: POPEYE WOMACK MD PCP: YOKASTA MILLS REPORT IS CONFIDENTIAL AND NOT TO BE RELEASED WITHOUT AUTHORIZATION
--- NOTE | 2019-04-13 10:29 | NUR ---
MORPHINE CRAFT SUPERINTENDENT DISCONTINUED ORDERED AND THE PUMP CLEARED FOR 2 MG WITH CYN SOARES. UNABLE TO CHART IT IN THE EMAR THE MEDICATION HAS BEEN DC'D FROM THERE.
--- NOTE | 2019-04-13 10:49 | NUR ---
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 PT RATES HER PAIN AT A 4/10 WHICH SHE STATES IS ACCEPTABLE TO HER.
--- NOTE | 2019-04-13 11:07 | NUR ---
PT IS ALERT, ORIENTED AND SUPPORTED BY HER TRA AT . PT STATED THAT SHE IS FEELING MUCH BETTER, AND IF SHE CAN KEEP SOME FOOD DOWN TODAY, SHE MAY BE DC'D. GAVE ENCOURAGEMENT AND REMINDED HER TO BE HONEST IN HOW SHE FEELS. TRA ECHOED THAT SENTIMENT WELL. EXTENDED A BLESSING, WILL FOLLOW NEEDED
--- NOTE | 2019-04-13 11:08 | NUR ---
Pt resting in her bed and she continues to state that her pain level is acceptable at this time.
--- NOTE | 2019-04-13 12:26 | NUR ---
PT RESTING IN HER BED AND SHE STATES HER PAIN REMAINS UNDER CONTROL AT A 4/10. INCISION SITES REMAIN INTACT AND APPEAR HEALTHY. PT NOW EATING HER LUNCH AND SHE DENIES ANY PROBLEMS TO INCREASING TO A REGULAR DIET. CALL OSCAR WITHIN REACH. PT REQUESTS A NICOTINE PATCH SHE STATES SHE HAD BEEN WEARING ONE AT HOME FOR THE PAST FEW MONTHS, WILL CALL THE PT'S MD. PT DENIES ANY OTHER NEW PROBLEMS. SEE ASSESSMENT. PT HAS ALSO HAD 2 MODERATE SIZED FORMED STOOLS TODAY.
--- NOTE | 2019-04-13 12:38 | NUR ---
DR WOMACK CALLED AND UPDATED TO THE PT'S CONDITION. NEW ORDERS RECIEVED, SEE EMAR.
[2019-04-13] MEDS ORDERED: NICOTINE PATCH1 EAC1 TD (13:01)
[2019-04-13] MEDS ORDERED: OXYCODON-ACETA1 EAC2 PO (13:02)
[2019-04-13] MEDS ORDERED: TYLENOL EXTRA500 MG PO (13:03)
[2019-04-13] MEDS ORDERED: BACTRIM DS TAB1 EACH PO (13:06)
--- NOTE | 2019-04-16 16:10 | PATH ---
[facility] [address], [place] [address] Signed SPECIMEN(S): A APPENDIX EPIPLOICA SPECIMEN(S): B APPENDIX AND FECALITH SPECIMEN(S): C GALLBLADDER SPECIMEN(S): D ILEO TO ILEO ANASTOMOSIS SPECIMEN SOURCE: A. APPENDIX EPIPLOICA B. APPENDIX AND FECALITH C. GALLBLADDER D. ILEO TO ILEO ANASTOMOSIS CLINICAL HISTORY: Abdominal pain status post colon CA. FINAL PATHOLOGIC DIAGNOSIS: A. Inflamed appendix epiploica, excision: - Epiploica with fat necrosis, acute serositis, and serosal fibrous adhesions. - Negative for malignancy. B. Appendix, appendectomy: - Appendix with acute serositis. - Negative for malignancy. C. Gallbladder, cholecystectomy: - Mild chronic cholecystitis. - Cholesterolosis. - Negative for malignancy. D. Mqiik-wt-zrnqk anastomosis, excision: - Ileal anastomotic site with acute serositis, fibrous adhesions, and suture granulomas. - No gross or microscopic evidence of perforation. - Negative for dysplasia or malignancy. NAL:smn:C2NR MICROSCOPIC EXAMINATION: Histologic sections of all submitted blocks are examined by light microscopy. These findings, together with the gross examination, support the pathologic diagnosis. GROSS DESCRIPTION: Three specimens are received in four containers, labeled "RC." A. The specimen, labeled "RC, appendices epiploica," is received in formalin and consists of one piece of irregular shaped, yellow-graves, fibroadipose tissue PATIENT NAME: MARJORIECAPRICE PATHOLOGY DATE OF : 55 REPORT #: [id number] PHYSICIAN: JERSEY MCQUEEN PCP: YOKASTA MILLS REPORT IS CONFIDENTIAL AND NOT TO BE RELEASED WITHOUT AUTHORIZATION [facility] [address], [place] [address] Signed that measures 4.0 x 3.5 x 1.2 cm. The surface of the specimen is partially covered with yellow-graves, adherent, plaque-like material. Sectioning through the specimen reveals regular yellow-graves, fibroadipose tissue. No masses or abnormalities are grossly identified. Furnace Room Supervisor sections are submitted in cassette (A1). B. The specimen, labeled "RC, appendix and fecalith," is received in formalin and consists of: Specimen: Appendix with mesoappendix. Dimensions: 6.0 x 0.7 cm. Serosa: While lesions and smooth with enlarged and congested subserosal vessels. Perforation: Not grossly identified. Inking: Staple line is inked black. Mucosa: [place]-graves. Fecalith: One dark brown fecalith that measure 1.3 x 0.6 cm. Additional: None. Furnace Room Supervisor sections are submitted in cassette (B1). C. The specimen, labeled "RC, gallbladder," is received in formalin and consists of: Specimen: Previously opened gallbladder. Dimensions: 8.5 x 6.0 x 0.3 cm. Serosa: violaceous and smooth. Cystic Duct: unobstructed. Calculi: No calculi identified within the gallbladder or within the container. Mucosa: Dark green and velvety. Wall thickness: 0.2 cm. Lymph node: No pericystic lymph nodes are grossly identified. Additional: None. Furnace Room Supervisor sections are submitted in cassette (C1). D. The specimen, labeled "RC, nbysi-qq-otpks anastomosis," is received in formalin and consists of previously opened piece of bowel that measures 14 cm in length and 2.2 cm in inner circumference. The specimen shows attached fibroadipose tissue. The fibroadipose tissue is covered with a yellow-graves, adherent, plaque-like material. The mucosa is pink-graves and folded. Sectioning through the specimen shows suture material that connects the two bowels to each other. Furnace Room Supervisor sections are submitted in cassettes (D1-D2). JS (under the direct supervision of a pathologist) The Gross Description was prepared using a voice recognition system. The PATIENT NAME: CAPRICE AMADOR PATHOLOGY DATE OF : 55 REPORT #: [id number] PHYSICIAN: JERSEY MCQUEEN PCP: YOKASTA MILLS REPORT IS CONFIDENTIAL AND NOT TO BE RELEASED WITHOUT AUTHORIZATION [facility] [address] [place] [address] Signed report was reviewed for accuracy; however, sound-alike word errors, addition and/or deletions may occur. If there is any question about this report, please contact Client Services. PERFORMING LABORATORY: Professional interpretation was performed by [facility], [address] [address] (Sexual Assault Response Coordinator: Jorge Porras MD; CLIA# [id number]). Diagnostician: Shobha Roe MD Pathologist Electronically Signed 04/16/2019 Copies: ~ PATIENT NAME: MARJORIECAPRICE PATHOLOGY DATE OF : 55 REPORT #: [id number] PHYSICIAN: JERSEY PATHOLOGY PCP: YOKASTA MILLS REPORT IS CONFIDENTIAL AND NOT TO BE RELEASED WITHOUT AUTHORIZATION
== END 2019-04-13 14:05 | disposition home or self-care (01) | DRG 330 ==
LOC: ED 08:24 → MS 13:46
PROVIDERS: ADMIT Surgery
PROC: 0DTJ0ZZ Resection of Appendix, Open Approach (ICD-10-PCS; 2019-04-10)
PROC: 0DNW4ZZ Release Peritoneum, Percutaneous Endoscopic Approach (ICD-10-PCS; 2019-04-10)
PROC: 0FT40ZZ Resection of Gallbladder, Open Approach (ICD-10-PCS; principal; 2019-04-10 13:15)
PROC: 0DBB0ZZ Excision of Ileum, Open Approach (ICD-10-PCS; 2019-04-10 13:15)
DX: K63.89 Other specified diseases of intestine (principal); K81.0 Acute cholecystitis; K36 Other appendicitis; K38.1 Appendicular concretions; I25.2 Old myocardial infarction; K57.30 Diverticulosis of large intestine without perforation or abscess without bleeding; E66.9 Obesity, unspecified; G25.81 Restless legs syndrome; E11.9 Type 2 diabetes mellitus without complications; K52.89 Other specified noninfective gastroenteritis and colitis; I10 Essential (primary) hypertension; K76.0 Fatty (change of) liver, not elsewhere classified; Z88.0 Allergy status to penicillin; Z79.899 Other long term (current) drug therapy; Z79.4 Long term (current) use of insulin; Z87.891 Personal history of nicotine dependence; Z85.038 Personal history of other malignant neoplasm of large intestine; Z53.31 Laparoscopic surgical procedure converted to open procedure; Z68.30 Body mass index [BMI] 30.0-30.9, adult
CPT/HCPCS: 00790; 36415; 74177; 76705; 78227; 80053; 81001; 83690; 85025; 87070; 87075; 87205; 94762; 96361; 99285-25; A9537; J0131; J0330; J0360; J0692; J1100; J1170; J1644; J1720; J1815; J1885; J1956; J2250; J2270; J2405; J2550; J2704; J2765; J2805; J3010; J7030; J7060; J7121; Q9967

== ENCOUNTER 2019-06-08 13:12 | Inpatient (IN) | payer OTHER ==
[~2019-06-08] VITALS: Ht 165.1 cm; Wt 88.5 kg
[~2019-06-08 13:12] MED LIST changes: +ASPIR-LOW81 MG PO; +BACTRIM DS TAB1 EACH PO; +CLOPIDOGREL75 MG PO; +FLONASE ALLERG9.9 ML NAS; +HUMALOG MI100 UNIT/2 SUB-Q; +NOVOLIN 70100 UNIT/1 SUB-Q; -NOVOLOG MI100 UNIT/1 SUB-Q; +NOVOLOG MI100 UNIT/2 SUB-Q; +OXYCODON-ACETA1 EAC2 PO; +TYLENOL EXTRA500 MG PO
[2019-06-11] MEDS ORDERED: CLOPIDOGREL75 MG PO (16:57)
[2019-06-11] MEDS ORDERED: GLYBURIDE2.5 MG PO (16:58)
[2019-06-11] MEDS ORDERED: DOXYCYCLINE HY100 MG PO (16:58)
[2019-06-11] MEDS ORDERED: OXYCODONE HCL5 MG PO (16:59)
[2019-06-11] MEDS ORDERED: BACTRIM DS TAB1 EACH PO (17:00)
--- NOTE | 2019-07-17 13:48 | NUR ---
07/17/19 1348 Saba Bruno 1334-PT ARRIVES TO PACU ON 6 L VIA MASK. PT'S EYES OPEN AND RESPOND TO NAME BUT UNABLE TO RATE PAIN/DENY NAUSEA AT THIS TIME. 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 SATS >90%. PT HAD GENERAL ANESTHESIA WITH TAP BLOCKS PLACED POST OPERATIVELY. SURGICAL SITES WNL. 1348-PT REPORTS NAUSEA AND DENIES PAIN AT THIS TIME. VSS. SATS >90%.
--- NOTE | 2019-07-17 16:04 | NUR ---
ASSESSMENT COMPLETE. ADMINISTERED 5MG MORPHINE FOR 5/10 PAIN IN THROAT AND ABD. PT AWAKE AND EATING ICE CHIPS. IVAN DRAINING MODERATE AMT OF BLOOD. MIDLINE SCANT AMT DRAINAGE. BT FAIRLY ACTIVE. ECKERT DRAINING YELLOW URINE. HOOKED TO IVF AT 125. WILL CALL FOR S\S INSULIN AND LAST TIME OF TORADOL DOSAGE.
[2019-07-17] MEDS ORDERED: CARAFATE1 GM/10 ML PO (16:40)
--- NOTE | 2019-07-17 16:40 | NUR ---
MED REC COMPLETE
--- NOTE | 2019-07-17 17:08 | NUR ---
VS ARE STABLE. SAO2 97% ON RA. PT IS REPORTING PAIN AT 8/10. PT IS ALSO FALLING ASLEEP DURING ASSESSMENT. BSG IS 349. SEE EMAR FOR INSULIN.
--- NOTE | 2019-07-17 18:25 | NUR ---
PT WORKING ON CLEAR LIQ DINNER. TOLERATING WELL. VS WNL 96% ON RA. CALL LIGHT WITHIN REACH.
--- NOTE | 2019-07-17 19:30 | NUR ---
REPORT RECEIVED FROM DAY SHIFT RN. PT LYING IN BED, ALERT AND ORIENTED. DAY SHIFT RN MEDICATING FOR PAIN. ECKERT PATENT. IVF INFUSING. MIDLINE INCISION CDI WITH SCANT AMOUNT OF DRAINAGE. GIA DRAIN PATENT. SCD'S IN PLACE. PT DENIES NEEDS AT THIS TIME. WHITE BOARD UPDATED. CALL LIGHT IN REACH.
--- NOTE | 2019-07-17 22:00 | NUR ---
ASSESSMENT COMPLETE. SCHEDULED MEDS GIVEN WITHOUT ISSUE. PT KARTHIK CL LIQ DIET, NO C/O NAUSEA. SCHEDULED TYLENOL FOR PAIN. DRESSING TO MIDLINE INCISION INTACT WITH SCANT AMOUNT OF DRAINAGE. GIA EMPTIED OF 15ML SEROSANGUINOUS DRAINAGE. ECKERT PATENT DRAINING CL YELLOW URINE. CPOX IN PLACE, SPO2 95% ON RA. SCD'S IN PLACE. PT DENIES FURTHER NEEDS AT THIS TIME. CALL LIGHT IN REACH.
--- NOTE | 2019-07-17 23:45 | NUR ---
PRN GIVEN FOR 9/10 ABD PAIN. NO C/O OF NAUSEA. FRESH WATER GIVEN. CPOX IN PLACE, SPO2 95% ON RA.
--- NOTE | 2019-07-18 00:55 | NUR ---
PT RESTING IN BED WITH EYES CLOSED, NAD. RR EVEN AND UNLABORED. SPO2 92% ON RA, HR 68.
--- NOTE | 2019-07-18 02:00 | NUR ---
VS AND I&O COMPLETE. PT DENIES NEEDS AT THIS TIME.
--- NOTE | 2019-07-18 04:15 | NUR ---
PRN GIVEN FOR 8/10 ABD PAIN. FRESH WATER GIVEN. IVF INFUSING. BABAR PATENT. PT DENIES FURTHER NEEDS, CALL LIGHT IN REACH.
--- NOTE | 2019-07-18 06:38 | NUR ---
SCHEDULED MEDS GIVEN WITHOUT ISSUE. VS AND I&O COMPLETE. PRN MORPHINE FOR 8/10 ABD PAIN. MIDLINE DRESSING INTACT WITH SCANT AMOUNT OF BLOODY DRAINAGE. GIA WITH 5ML SEROSANGUINOUS DRAINAGE. ECKERT PATENT DRAINING CL YELLOW URINE. IVF INFUSING. AM LABS DRAWN THROUGH CENTRAL LINE. DISTAL LUMEN HEP LOCKED PER PROTOCOL. PT DENIES FURTHER NEEDS, CALL LIGHT IN REACH.
--- NOTE | 2019-07-18 08:20 | NUR ---
PT RESTING SUPINE IN BED ALERT AND ORIENTED. CALL LIGHT AND H2O IN REACH. PT ASSESSMENT COMPLETED AND AM MEDS ADMINISTERED. PT REPORTS PAIN OF 8/10 SO PRN IV ANALGESIC ADMINISTERED PER PT REQUEST. PT EDUCATED ON NEED TO REDUCE OPIODS MUCH POSSIBLE AND TO AMBULATE TOLERABLE TO AID IN INCREASING BOWEL MOTILITY. PT VERBALIZED UNDERSTANDING AND AGREES TO USE CALL LIGHT WHEN READY TO AMBULATE.
--- NOTE | 2019-07-18 09:00 | NUR ---
Spoke with Whit. States she lives in an RV with her spouse as they had planned to travel. Issues with her health have caused them to not be able to do so. They have three children. She is retired from [employer] after 15 years. Denies use of DME. States good support from spouse and children, they will help her as needed. Plans on returning to her RV on discharge.
--- NOTE | 2019-07-18 11:51 | NUR ---
PT REPORTS INCREASED PAINT TO ADBOMEN. PRN IV MORPHINE ADMINISTERED PER PT REQEUST. CALL LIGHT AND H2O IN REACH. PT DENIES FURTHER NEEDS OR CONCERNS.
--- NOTE | 2019-07-18 12:04 | NUR ---
PT ALERT, ORIENTED, WATCHING RV. PT ON RM O2. PAIN 7-8, WILL PASS ON TO [facility]. THE LAST YR HAS BEEN DIFFICULT FOR PT WITH HEALTH ISSUES. LIVE IN RV, PLANNING ON TRAVELING BUT PLANS HAVE CHANGED BECAUSE OF HER HEALTH. PT SEEMS TO BE DEALING APPROPRIATELY, IS FAMILY. DIFFICULT ON HER AND FAMILY NOT BEING ABLE TO SEE EACH OTHER. OFFERED USE OF DEPT IPHONE TO FACE TIME, PT ACKNOWLEDGED OFFER. PT ALLOWED ME TO PRAY FOR HER, LEFT HER A G.POST AND ALSO A P.RUSTAM
--- NOTE | 2019-07-18 15:13 | NUR ---
PT RESTING IN SEMIFOWLERS POSITION IN BED ALERT AND ORIENTED. PT ASSESSMENT COMPLETED. CALL LIGHT AND H2O IN REACH.
--- NOTE | 2019-07-18 17:19 | NUR ---
PT WAS UP AMBULATING IN HALLS TWICE TODAY AND AMBULATES WITH STEADY GAIT AND TOLERATED AMBULATION WELL WITH JUST SBA ON RA. CALL LIGHT AND H2O IN REACH. PT NOW SITTING UP IN BED EATING DINNER AND SCHEDULED 1UNIT OF INSULIN ADMINISTERED.
--- NOTE | 2019-07-18 19:15 | NUR ---
SHIFT REPORT RECEIVED FROM DAYSHIFT RODGER HIGHTOWER AT BEDSIDE. PT AWAKE AND RESTING IN BED WHILE TALKING ON THE PHONE AND WATCHING TELEVISION. IV FLUIDS INFUSING, SITE WNL. NO NEEDS VERBALIZED AT THIS TIME. CALL LIGHT IN REACH.
--- NOTE | 2019-07-18 20:07 | NUR ---
PT UP SBA TO VOID, 700MLS NOTED. PT BACK IN BED, IV FLUIDS INFUSING. SITE WNL. ROOM CLEANED, SCD'S IN PLACE. DINNER TRAY CHARTED, NO FURTHER NEEDS. WILL GIVE MEDS AND TAKE VS AFTER PT IS DONE WITH PHONE CALL W/ SISTER PER PT REQUEST. CALL LIGHT IN REACH.
--- NOTE | 2019-07-18 21:00 | NUR ---
ASSESSMENT COMPLETE, SCHEDULED MEDS GIVEN (SEE EMAR). PT A/OX4, VSS. PT ON RA, O2 SAT IN UPPER 90'S. NO DISTRESS NOTED, REPORTS 8/10 PAIN. PRN MORPHINE GIVEN (SEE EMAR) SCHEDULED TYLENOL AND PRN TORADOL UNAVAILABLE AT THIS TIME. ABDOMINAL DRESSING INTACT, SCANT AMOUNT DRY SEROSANGUINEOUS SHADOWING NOTED, GIA DRAIN EMPTIED, 27MLS OUTPUT, SEROSANGUINEOUS IN COLOR. PT REPORTS PASSING GAS, BT ACTIVE. NAUSEA DENIED. SCD'S IN PLACE. CENTRAL LINE DRESSING INTACT. IV FLUIDS INFUSING AT 100MLS/HR, SITE WNL. NO FURTHER NEEDS, CALL LIGHT IN REACH.
--- NOTE | 2019-07-18 22:30 | NUR ---
PT RESTING IN BED, CPOX IN PLACE. O2 SAT AND HR WNL, PT ON RA. CENTRAL LINE DRESSING WNL, LUMENS X3 FLUSHED WITH NORMAL SALINE AND HEP LOCKED PER PROTOCAL. BLOOD RETURN NOTED TO ALL LUMENS. PT A/O, REPORTS PAIN HAS IMPROVED, RATES 6/10. SCHEDULED TYLENOL GIVEN (SEE EMAR). IV FLUIDS INFUSING AT 100MLS/HR, SITE WNL. NO NEEDS VERBALIZED. CALL LIGHT IN REACH.
--- NOTE | 2019-07-18 23:47 | NUR ---
PT RESTING QUIETLY IN BED, EYES CLOSED. RESPIRATIONS EVEN AND UNLABORED. NO DISTRESS NOTED, PT APPEARS COMFORTABLE. IV FLUIDS INFUSING AT 100MLS, SCD'S IN PLACE. CALL LIGHT IN REACH.
--- NOTE | 2019-07-19 01:39 | NUR ---
prn toradol administered for 8/10 abdominal pain (see emar). pt on ra, rr even and unlabored. no distress noted, call light in reach. scd's in place. no further needs verbalized.
--- NOTE | 2019-07-19 02:30 | NUR ---
new bag iv fluids hung and infusing at 100mls/hr, site wnl. cpox in place, pt on ra. hr and o2 sat both wnl, no additional needs verbalized. call light in reach.
--- NOTE | 2019-07-19 05:17 | NUR ---
THIS RN ROUNDING ON PT. PT UP SBA TO VOID, 375MLS OUTPUT NOTED, STRAW COLORED. RESTING IN BED, VSS. CPOX IN PLACE, PT ON RA. LUNG SOUNDS CLEAR. RESPIRATIONS EVEN AND UNLABORED. REPORTS TOLERABLE 6/10 PAIN, SCHEDULED TYLENOL DUE AT 0600. ABDOMINAL DRESSING INTACT, SMALL AMOUNT SEROSANGUINEOUS NEW SHADOWING NOTED, WILL CONTNUE TO MONITOR. GIA EMPTIED, 8MLS SEROSANGUINEOUS OUTPUT. PT DENIES NAUSEA, BT ACTIVE. IV FLUIDS INFUSING AT 100MLS/HR, SITE WNL. PUMP CLEARED. CENTRAL LINE DRESSING INTACT. NO FURTHER NEEDS, CALL LIGHT IN REACH. SCD'S ON.
--- NOTE | 2019-07-19 06:07 | NUR ---
SCHEDULED TYLENOL ADMINISTERED (SEE EMAR) FOR 6/10 ABDOMINAL PAIN. PT DENIES FURTHER NEEDS, CALL LIGHT IN REACH. NO NEW SHADOWING NOTED FROM SECOND ASSESSMENT. SHADOWING REMAINS APPROX SIZE OF A JEANE. WILL CONTINUE TO MONITOR. IV FLUIDS INFUSING AT 100MLS/HR, SITE WNL. SCD'S IN PLACE.
--- NOTE | 2019-07-19 07:10 | NUR ---
PT RESTING SUPINE IN BED EYES CLOSED AND RESPIRATIONS EVEN AND UNLABORED. PT APPEARS TO BE SLEEPING COMFORTABLY. CALL LIGHT AND H2O IN REACH. BEDSIDE REPORT RECEIVED FROM RODGER RANDOLPH.
--- NOTE | 2019-07-19 08:25 | NUR ---
Pt resting in semifowlers position in bed alert and oriented watching tv. Pt assessment completed and call light/h2o in reach. Pt states pain is tolerable and denies needs or concerns.
--- NOTE | 2019-07-19 08:50 | NUR ---
Spoke with Whit. She states she is somewhat painful today. Denies other complaints. Notified by she is unable to leave yet. Encouraged to stay and not leave , so it can be a safe discharge. States she is walking to the [place]. No bm as of yet.
--- NOTE | 2019-07-19 09:08 | OR ---
[facility] [address], [place] [address] Signed DATE OF OPERATION: 07/17/2019 SURGEON: Popeye Womack MD PREOPERATIVE DIAGNOSES: 1. Transverse synchronous colon carcinoma. 2. Difficult IV access. 3. History of perforated splenic flexure of colon with pericolonic and perisplenic abscess, status post drainage and segmental colonic resection with xmub-kd-srmw anastomosis; ultimately diagnosis perforated colon cancer January 2019 4. Bilateral Pulmonary lesions, not otherwise specified. POSTOPERATIVE DIAGNOSES: 1. Transverse synchronous colon carcinoma. 2. Difficult IV access. 3. History of perforated splenic flexure of colon with pericolonic and perisplenic abscess, status post drainage and segmental colonic resection with fhhu-cu-iryq anastomosis; ultimately diagnosis perforated colon cancer January 2019 4. Bilateral Pulmonary lesions, not otherwise specified. 5. 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 6. Nodule of midportion of stomach on greater curvature suspicious for neoplasm (resected). 7. Abdominal wall nodularity near incision right side of abdomen. 8. Dense phlegmon of distal pancreas in region of prior colon resection. PROCEDURES PERFORMED: 1. Laparotomy with lysis of adhesions and transverse colectomy with end-to-end colocolostomy. 2. Wedge resection of gastric nodule with midportion of stomach reconstruction to avoid outlet obstruction. 3. Segmental resection of jejunum in continuity with mesentery of transverse colon and end-to-end enteroenterostomy anastomosis. 4. Biopsy gun biopsy of distal pancreas. 5. Biopsy of abdominal wall, peritoneal nodules. 6. Placement of right internal jugular central venous catheter. HEALTH AND PHYSICAL EDUCATION TEACHER: Nurses (Molina Le, RN and Iliana Tristan RN). Electronically Signed By: POPEYE WOMACK MD 07/19/19 0908 PATIENT NAME: CAPRICE AMADOR OPERATIVE REPORT DATE OF : 55 REPORT #: [id number] PHYSICIAN: POPEYE WOMACK MD PCP: YOKASTA MILLS REPORT IS CONFIDENTIAL AND NOT TO BE RELEASED WITHOUT AUTHORIZATION [facility] [address] [place], [place] [address] Signed ANESTHESIA: General endotracheal, Popeye Adam CRNA and Devang Carias SENIOR PRODUCT CONSULTANT and TAP block. DRAINS: 7 mm Mario. INDICATION: This 63-year-old white woman presented with left upper abdominal pain and a fluid collection in the area of the pancreatic tail and splenic hilum and splenic flexure of the colon in January 2019. She underwent open drainage of the abscess with concordant segmental resection of the splenic flexure of the colon. At the time, it was thought the abscess was related likely to perforated diverticulitis. A zocg-mm-hwwt colocolostomy was performed as well as diverting loop ileostomy as it was unprepped bowel and an emergency operation. On postop day 8, she underwent takedown of the loop ileostomy with khen-wk-cohl anastomosis. She subsequently developed acute cholecystitis as well as possible anastomotic problems of the ileum and underwent segmental bowel resection with end-to-end anastomosis as well as cholecystectomy for acute severe cholecystitis. She recovered from that fully. Colonoscopy was later undertaken to assess that there were no other concurrent lesions in the colon following resection. Of note, the pathology of the perforated colon confirmed perforated colon cancer after all. Colonoscopy had been performed three years ago in the [facility]. She is known to have family history of colon cancer in her mother. Colonoscopy performed post resection showed a polyp in the right colon, which had some atypia, but was resected completely and an additional cancer proximal to the cdhq-fb-jzhp colocolostomy of the left colon located most likely in the transverse colon. A CT scan was performed, which confirmed that lesion to be in the mid transverse colon and with no sign of metastatic lesions to the liver. A preoperative chest x-ray was undertaken which showed two nodules, one in the right and one in the left lung. A plan for resection of the colon was abandoned when the patient "forgot" to do a bowel prep the day before the procedure. On that basis, she proceeded to a CT scan of the chest to better evaluate the nodules which were not present previously and there were at least two nodules on both right and left side. There appeared to be some possible mediastinal adenopathy as well. Notably, the patient quit smoking last fall at the time of her initial intervention. Mindful that the lesions of the lung could be metastatic nodules versus primary cancer versus nonmalignant lesions, she underwent a PET scan under my direction. This did not show high uptake in the nodules of the lung, but did show uptake in the transverse colon. No sign of abnormality of the liver or elsewhere. Electronically Signed By: POPEYE WOMACK MD 07/19/19 0908 PATIENT NAME: CAPRICE AMADOR OPERATIVE REPORT DATE OF : 55 REPORT #: [id number] PHYSICIAN: POPEYE WOMACK MD PCP: YOKASTA MILLS REPORT IS CONFIDENTIAL AND NOT TO BE RELEASED WITHOUT AUTHORIZATION [address] [address] Signed She has seen Dr. Hernandez once again whose opinion included that of proceeding to colon resection with consideration of additional observation of the pulmonary lesions, which are completely asymptomatic at this time. The risks of bleeding, infection, anastomotic failure, need for other indicated procedures, was reviewed with the patient in detail. She understands and wished to proceed. FINDINGS: The midline incision was well healed. There was no sign of fascial defect or hernia. The abdomen was entered showing no sign of ascites. There was no sign of generalized carcinomatosis. There was some nodularity of the right side of the abdomen, not far from the incision, but also noted to be located in the region of the prior ileostomy. This nodularity may be benign. A biopsy portion of this was undertaken. She was additionally noted to have poor IV access and therefore a right internal jugular central venous catheter was placed without problem prior to operation itself. The lesion of the transverse colon was easily identified by palpation and by Endo Hillary tattoo dye that had been applied. Notably, there appeared to be a likely metastatic transverse colon mesenteric lymph node that had direct extension into segment of jejunum. The jejunum was segmentally resected and later anastomosed allowing for resection of the colonic mesentery and lymph node in continuity with the portion of small bowel. Additionally noted was a rather prominent nodule on the greater curvature of the stomach directly across the incisura. This was excised completely. Once opened, it was found to be an intramural nodule rather than a mucosal lesion and may represent metastatic disease or perhaps a primary gastrointestinal stromal tumor. Wide resection was undertaken and transverse reapproximation allowed for good continuity of the stomach. Additionally noted was the prior anastomosis which was well healed, but associated with a dense phlegmon in the region of the distal 1/3 of the pancreas. The lesion was not in continuity with the mid transverse colon lesion, but rather in the region of prior segmental colectomy. Biopsy of the distal pancreas was undertaken. The spleen had significant adhesive changes in the hilum as well as laterally, but was otherwise normal. By conclusion, transverse colectomy was accomplished with wide mesenteric resection including without separation the small segment of jejunum attached to the transverse colon mesentery, with preservation Electronically Signed By: POPEYE WOMACK MD 07/19/19 0908 PATIENT NAME: CAPRICE AMADOR OPERATIVE REPORT DATE OF : 55 REPORT #: [id number] PHYSICIAN: POPEYE WOMACK MD PCP: YOKASTA MILLS REPORT IS CONFIDENTIAL AND NOT TO BE RELEASED WITHOUT AUTHORIZATION [facility] [address] [place] [id number] Signed of the previous anastomosis of the left colon.An end-to-end colocolostomy of the transverse colon was accomplished and appeared viable. Segmental jejunal resection was joined by end-to-end anastomosis and resection of the gastric lesion allowed for good continuity of the stomach as well. Of special note, the dome of the liver had no visible lesions though. Palpation revealed a very small and tiny nodule in the dome of the lesion, which may or may not be malignant, it was not accessible for biopsy unfortunately. DESCRIPTION OF PROCEDURE: The patient was brought to the operating room and given a general endotracheal anesthetic. Preoperative antibiotic cefoxitin was given and a complete bowel prep had been given. A Gillis catheter was placed. Arms were placed at the side. The head turned to the left and mild Trendelenburg position. The right neck was prepared with a chlorhexidine solution and draped sterilely. Access to the right internal jugular vein was undertaken with full sterile technique showing dark nonpulsatile blood. A flexible J-wire was passed down the needle and the needle was removed. The site was incised with an #11 blade and dilated with enclosed blue dilator and the Arrow Blue Tip triple-lumen catheter passed over the wire. The wire was removed and the aspiration on the distal port showed dark nonpulsatile blood. The catheter had been previously irrigated with saline solution. The catheter was withdrawn at appropriate length and secured to the skin with enclosed collar device and nylon suture. An anti-infective disk was applied as was an OpSite. Plans were then made for remaining operation. The arms were abducted and the abdomen prepared with a chlorhexidine solution and draped sterilely. The midline scar of the incision was excised, passed for pathology. Using electrocautery, the relatively deep subcutaneous tissue was incised. Fascia divided and with meticulous care divided more fully lying for entry into the abdomen. The abdomen was entered and there were a number of interloop adhesions which were not dense, but were filmy and were divided sharply. Quite obvious was the mid transverse colon lesions, which was palpable and clearly corresponding to the CT scan and the endoscopic evaluation. Endo hillary tattoo dye marked it well also. This small bowel was freed with firm adhesions with sharp dissection and the fat was found to be a likely metastatic lymph node of the transverse mesocolon directly extending to a loop of small bowel in the proximal jejunum. In keeping with resection in continuity as much as possible, the segment of small bowel was deemed appropriate to resect without peeling it from the metastatic lesion of the mesentery. The mesentery to the segment of small bowel was incised and secured with hemostats and ligated with 2-0 silk ties. A JANIYA stapling device was used to transect the jejunal segment. Approximately 2 inches or so of the jejunum was excised. The divided ends of small bowel were marked with a suture for later anastomosis. Electronically Signed By: POPEYE WOMACK MD 07/19/19 0908 PATIENT NAME: CAPRICE AMADOR OPERATIVE REPORT DATE OF : 55 REPORT #: [id number] PHYSICIAN: POPEYE WOMACK MD PCP: YOKASTA MILLS REPORT IS CONFIDENTIAL AND NOT TO BE RELEASED WITHOUT AUTHORIZATION [facility] [address] [place], [place] [address] Signed The transverse colon was then more fully mobilized. There was found to be a good plane between the portion of omentum of the left transverse colon. Further dissection showed the prior and awfg-dj-llkh colocolostomy to be patent and without sign of obstruction in any way. There appeared to be dense phlegmon at the root of that mesentery, which was found ultimately to be in continuity with the distal 3rd of the pancreas. For the time being this was left alone. The hepatic flexure was mobilized using blunt electrocautery dissection freeing the overlying duodenum and distal portion of the antrum of the stomach. Upon palpation, there was a 2 cm mass in the midportion of the stomach on the greater curve, directly across from the incisura. This did not appear to be direct extension of tumor from the mesentery or the colon itself but was highly suspicious for malignancy, however. The gastroepiploic vessels lining the greater curvature of the stomach in the region of the nodule were secured with a silk ties. A JANIYA stapling device was used to transect the nodule, which measured about 2 cm or so, freeing it completely from the stomach. This was photographed and sent for permanent pathology. It was opened on the back table and showed no sign of transgression into the mucosa of the stomach and may represent a gastrointestinal stromal tumor as it is an intramural lesion. The appearance of the transected portion of stomach was such that it was a narrow passageway located essentially directly at the incisura. Although it may possibly stretch out in the future, it was deemed advisable to excise the staple line and transversely reapproximate it. This was accomplished after excising the staple line and reapproximate it transversely with a running inner layer of 3-0 Vicryl and outer serosal layer of interrupted 3-0 silk suture. This provided much better passage from the body of the stomach to the antrum. Photographs were again taken. Further evaluation showed no sign of lesser sac lymph node or lymphadenopathy. Palpation of the dome of the liver and the left lateral segment of liver showed no sign of abnormality except in the very uppermost portion of the dome of the liver where a very small less than a cm nodule was noted. Further examination showed no sign of connection to the surface from this area and it was not in a position amenable to biopsy unfortunately. Attention was returned to the transverse colon. The segment of transverse colon which would allow for resection was more fully evaluated for its vascular anatomy. Transillumination of the mesentery showed a bifid appearance to the middle colic artery. Resection of transverse colon without extension beyond the splenic flexure to the left colon was deemed quite acceptable for oncologic resection, particularly since there is advanced disease elsewhere. The mesentery to the transverse colon was incised with Electronically Signed By: POPEYE WOMACK MD 07/19/19 0908 PATIENT NAME: CAPRICE AMADOR OPERATIVE REPORT DATE OF : 55 REPORT #: [id number] PHYSICIAN: POPEYE WOMACK MD PCP: YOKASTA MILLS REPORT IS CONFIDENTIAL AND NOT TO BE RELEASED WITHOUT AUTHORIZATION [address] [address] Signed electrocautery and vascular pedicle secured with 0 silk ties. The distal portion of the transverse colon and proximal portion were transected with a 75 mm JANIYA stapling device. Specimen was opened on the back table. The lesion well identified. A portion of the mid of the omentum in continuity with the mid transverse colon was then excised in continuity as well. An end-to-end colocolostomy was then undertaken in a two layer technique of interrupted 3-0 silk sutures. The mesenteric defect was secured with running silk suture. Good hemostasis was noted and viability of both proximal and distal portions. Attention was then turned towards the divided ends of the jejunum. This was reanastomosed in an end-to-end configuration using interrupted 3-0 silk suture in the serosal layer and interrupted 3-0 Vicryl in the mucosal layer. Mesenteric defect was secured with running silk suture. Photographs were taken. Copious irrigation was taken throughout the abdomen. Examination more fully undertaken. Further examination in the region of prior anastomosis and the mid distal to distal 3rd of the pancreas showed them to be somewhat in continuity. Mindful that local cancer recurrence is a possibility in the mesentery of that area given her prior history, but also, mindful that needless distal pancreatectomy would be meddlesome and possibly calamitous. Simple biopsy of the distal 3rd of the pancreas was undertaken. Two biopsies were obtained with a 14-gauge biopsy gun device. There was good hemostasis. Through a right-sided stab incision, a 7 mm flat Mario drain was placed in the lesser sac directly over this area and the unlikely chance of pancreatic fluid leak. The omentum was secured over the area with interrupted 2-0 Vicryl. Again buttress seen against mid transverse colonic anastomosis. Reinspection throughout the abdomen showed no sign of bleeding or other problems. To the right of the midline fascia was a nodular feeling abnormality, which was contiguous with the peritoneal but not on the surface of the peritoneum. This may represent simple granuloma formation from prior ileostomy. A 2 x 3 cm segment of this tissue was excised 100 mL and passed for pathology as peritoneal biopsy. Attention was then turned towards closure. The midline fascia was reapproximated with running bidirectional #1 PDS suture. Subcutaneous tissue was irrigated. Skin closed with running subcuticular 3-0 Vicryl. Of note, over gloves had been changed by me following resection of the colon. Steri-Strips were applied as was a silver sponge dressing which was self adherent. A drain was attached to bulb suction. Blood loss was estimated at 100 mL. Sponge, needle and instrument counts were reported as correct x3. Electronically Signed By: POPEYE WOMACK MD 07/19/19907 PATIENT NAME: CAPRICE AMADOR OPERATIVE REPORT DATE OF : 55 REPORT #: [id number] PHYSICIAN: POPEYE WOMACK MD PCP: YOKASTA MILLS REPORT IS CONFIDENTIAL AND NOT TO BE RELEASED WITHOUT AUTHORIZATION [facility] [address] [place] [id number] Signed MD CLEMENT Landon/EBENEZER /[id number] cc: ARIANA Dempsey MD Copies: YOKASTA MILLS ROBERT C MD ~ Electronically Signed By: POPEYE WOMACK MD 07/19/19 0908 PATIENT NAME: CAPRICE AMADOR OPERATIVE REPORT DATE OF : 55 REPORT #: [id number] PHYSICIAN: POPEYE WOMACK MD PCP: YOKASTA MILLS REPORT IS CONFIDENTIAL AND NOT TO BE RELEASED WITHOUT AUTHORIZATION
--- NOTE | 2019-07-19 11:00 | NUR ---
PT SITTING UP IN BED STATES "YOU HAVE THE BEST TIMING" PT JUST FINISHED WITH WALK AND WAS ASSISTED WITH HOOKING UP SCD'S. CALL LIGHT, H2O AND PERSONAL ITEMS IN REACH OF PATIENT. PT STATES "I FEEL SO MUCH BETTER AFTER THAT PAIN PILL". PT DNEIES NAUSEA RO SOB ON RA. NO FURTHER NEEDS OR CONCERNS VOICED.
--- NOTE | 2019-07-19 11:21 | NUR ---
ACCOMPANIED PT SHE AMBULATED IN THE HALLWAY. COLOR IS MUCH BETTER TODAY AND SHE FEELS PAIN IS MORE UNDER CONTROL.PT SEEMED TO ENJOY WALKING AND BEING ABLE TO GET OUT OF HER RM. CONTINUED VISIT AND PT BEGAN TO OPEN UP HOW HARD IT HAS BEEN ON HER NOT BEING ABLE TO HAVE CONTACT WITH HER FAMILY. IT WAS HELPFUL FOR PT TO EXPRESS HER FEELINGS. REMINDED HER THAT SHE CAN FACE TIME IF SHE FEELS A NEED TO, SHE ACKNOWLEDGED. HAD PRAYER WITH PT, SHE IS ENJOYING HER P.TOMWL
--- NOTE | 2019-07-19 13:08 | NUR ---
REPORT RECEIVED FROM KATJA SOARES. PT IN BED. DENIES PAIN, ATE 100% OF LUNCH. AMBULATED IN HALLS INDEPENDENTLY. TOLERATING WELL.
--- NOTE | 2019-07-19 14:50 | NUR ---
PT REPORTING 7/10 PAIN 1 PERCOCET GIVEN. PT UP IN BED WATCHING TV. DENEIS NAUSEA. CALL LIGHT IN REACH.
--- NOTE | 2019-07-19 16:03 | NUR ---
IN FOR PT ASSESSMENT. PT SITTING IN BED. REPORTS PAIN /10. BOWEL TONES HYPERACTIVE. PT WITH SMALL BM. REPORTS PASSING FLATUS. NO NASUEA. CALL LIGHT IN REACH.
--- NOTE | 2019-07-19 19:20 | NUR ---
SHIFT REPORT RECEIVED FROM DAYSHIFT RODGER HO AT BEDSIDE. PT AWAKE AND RESTING IN BED, DENIES NEEDS. APPEARS COMFORTABLE, BOARD UPDATED. CALL LIGHT IN REACH.
--- NOTE | 2019-07-19 21:10 | NUR ---
ASSESSMENT COMPLETE, SCHEDULED MEDS GIVEN (SEE EMAR). PT AWAKE AND RESTING IN BED. VSS AND I&O'S COMPLETE. PT REPORTS 7/10 PAIN, PRN OXYCODONE ADMINISTERED. CENTRAL LINE DRESSING INTACT, SITE WNL. LUMENS X3 SALINE FLUSHED AND HEP LOCKED PER PROTOCAL. BLOOD RETURN NOTED TO ALL LUMENS. PT A/OX4, SCD'S IN PLACE. ABDOMINAL DRESSING INTACT, SMALL AMOUNT OLD SEROSANGUINEOUS SHADOWING NOTED. GIA EMPTIED, 10 MLS SEROSANGUINEOUS IN COLOR. BT ACTIVE, LAST BM TODAY ON DAYSHIFT. NO FURTHER NEEDS, PT DENIES NAUSEA. CALL LIGHT IN REACH. IV SITE TO LEFT HAND FLUSHED, SALINE LOCKED.
--- NOTE | 2019-07-19 23:32 | NUR ---
PT RESTING QUIELTY IN BED, EYES CLOSED. RESPIRATIONS EVEN AND UNLABORED. MINIMAL SNORING NOTED. NO DISTRESS NOTED AT THIS TIME, CALL LIGHT IN REACH. SCD'S IN PLACE.
--- NOTE | 2019-07-20 01:30 | NUR ---
this rn rounding on pt. pt verbalizes need to void, scd's off, pt instructed to use call light when back in bed. pt verbalized understanding.
--- NOTE | 2019-07-20 03:14 | NUR ---
10/18 abd pain, medicated with Toradol 30mg IV, in bed, alert and oriented, call light at bedside
--- NOTE | 2019-07-20 05:04 | NUR ---
ASSESSMENT COMPLETE, NO NEW CHANGES OR CONCERNS. PT AWAKE AND RESTING IN BED. RATES PAIN 7/10, DECLINES NEED FOR PAIN MEDICATION AT THIS TIME. WILL MONITOR. NO NEW SHADOWING TO ABDOMINAL DRESSING, 20MLS SEROSANGUINEOUS OUTPUT FROM GIA DRAIN. VSS, PT A/OX4. SCD'S IN PLACE. DRESSING TO CENTRAL LINE INTACT, SITE WNL. NO FURTHER NEEDS, CALL LIGHT IN REACH.
--- NOTE | 2019-07-20 05:27 | NUR ---
PT HAD AN UNEVENTFUL NIGHT, SLEPT THROUGHOUT THE SHIFT. VSS, PT A/OX4, PAIN CONTROLLED WITH PRN TORADOL AND PRN OXYCODONE. USES CALL LIGHT APPROPERIATELY, SCD'S IN PLACE. ABDOMINAL DRESSING INTACT, SCANT SEROSANGUINEOUS SHADOWING. GIA DRAIN TO RLQ, TOTAL OUTPUT FOR SHIFT 30 MLS. CENTRAL LINE HEP LOCKED PER POLICY, IV SITE SALINE LOCKED. NO NAUSEA REPORTED, BT ACTIVE. SCHEDULED ACCUCHECKS WITH INSULIN SS.
--- NOTE | 2019-07-20 07:25 | NUR ---
RECIEVED REPORT. PT REPORTING PAIN AT 8/10. GAVE PRN MEDICATION 7.5 OXY. PT STATES BREAKFAST ALREADY ORDERED. NO FURTHER NEEDS AT THIS TIME. CALL LIGHT WITHIN REACH.
--- NOTE | 2019-07-20 10:15 | NUR ---
PT. RESTING IN BED WITH SCD'S ON AND CALL LIGHT WITHIN REACH. NO NAUSEA, PAIN AT 5/10. BP 174/73. SHE SAYS SHE NORMALLY TAKES SOMETHING FOR BP AT HOME.
--- NOTE | 2019-07-20 10:40 | NUR ---
DISCUSSED BP WITH . PHONE ORDER FOR HOME BP MEDICATIONS RETRIEVED.
--- NOTE | 2019-07-20 11:07 | NUR ---
LAB DRAW FROM [place] DONE. 5ML WAISTED. 5 ML GIVEN TO LAB. FLUSHED WITH NS. PT OUT TO AMBULATED HALLS.
[2019-07-20] MEDS ORDERED: OXYCODONE HCL5 MG PO (12:11)
[2019-07-20] MEDS ORDERED: TYLENOL EXTRA500 MG PO (12:12)
--- NOTE | 2019-07-20 12:23 | NUR ---
PT ALERT, ORIENTED AND RESTING COMFORTABLY IN BED. PT RECEIVED NEWS THAT A LOVED ONE HAS PASSED VERY UNEXPECTEDLY AND PT WAS UNABLE TO SLEEP WELL LAST NIGHT. DEBRIEFED PT REGARDING HER LOSS, PT REQUESTED PRAYER. PT IS HOPEFUL SHE WILL DC TODAY, WAITING FOR DR WOMACK.
--- NOTE | 2019-07-20 13:00 | NUR ---
RIGHT IJ REMOVED PREASURE RY. PT ORDERED TO LAY FLAT FOR 30MIN. IV TO LEFT HAND ALSO DC'D. PT TOLERATED WELL.
--- NOTE | 2019-07-20 21:24 | DS ---
[facility] [address], [place] [address] Signed ADMISSION DATE: 07/17/2019 DISCHARGE DATE: 07/20/2019 REASON FOR ADMISSION: This 63-year-old white woman is a patient of Dr. Fabiano Hernandez as well as ARIANA Dempsey. She is admitted at this time to undergo transverse colectomy for a second (synchronous) colon cancer of the mid transverse colon. Other details can be found in the admission History and Physical. PERTINENT PHYSICAL EXAMINATION: GENERAL: Showed a somewhat obese white woman, in no acute distress. NECK: Trachea midline. CHEST: Clear. HEART: Regular, without murmur. ABDOMEN: Somewhat obese, but soft. There is no palpable mass and a well-healed midline incision is noted. EXTREMITIES: Show no clubbing, cyanosis, or edema. HOSPITAL COURSE: On July 16, she underwent laparotomy with lysis of adhesions and transverse colectomy with end-to-end colocolostomy. A wedge resection of a separate and distinct gastric nodule in the midportion of the stomach directly across from the incisura was undertaken as well as segmental resection of jejunum of a malignant lymph node of the mesentery extending to the segment of jejunum as well as biopsy of the distal pancreas and biopsy of abdominal wall and peritoneal nodules. In addition, a preoperative right internal jugular central venous catheter was placed. Drain was placed in the lesser sac in relation to the pancreatic biopsy. Gillis catheter was placed as well. Postoperatively, she was begun on clear liquids quite promptly. She is maintained with non-opiate medications as much as possible including IV Tylenol, IV Toradol, and episodic use of intravenous narcotic morphine. She tolerated the liquids well and by postoperative day #1 was advanced to a full liquid diet including Glucerna type, Ensure. The drain output was minimal, and postoperative amylase level was normal. She promptly had resumption of bowel function, was advanced to an ADA solid diet, which she tolerated well. Bowel movements were noted as well. The drain was removed when her serum amylase was noted to be only 26. By day of discharge, she is ambulating well, tolerating a solid diet, has normal bowel movements and incisional pain well controlled with oral analgesics, dominantly Motrin and Tylenol, Electronically Signed By: POPEYE WOMACK MD 07/20/19 2124 PATIENT NAME: CAPRICE AMADOR DISCHARGE SUMMARY DATE OF : 55 REPORT #: [id number] PHYSICIAN: POPEYE WOMACK MD PCP: YOKASTA MILLS REPORT IS CONFIDENTIAL AND NOT TO BE RELEASED WITHOUT AUTHORIZATION [facility] [address] [place] [id number] Signed but with episodic oxycodone as needed. FOLLOWUP PLANS: She is to return to see me in approximately a month. Pathology report is still pending. She will resume and continue with her usual medications including Lantus insulin regimen and antihypertensives. DISCHARGE MEDICATIONS: Include: 1. Oxycodone 7.5 mg p.o. q.6 hours as needed for pain, #14. 2. Plain Tylenol Extra Strength 500 mg two tablets p.o. q.6 hours as needed for pain, #60. 3. She will resume her insulin (Humalog Mix 75/25, 15 units)subcutaneously b.i.d. 4. Pravachol 40 mg p.o. at bedtime. 5. Gabapentin 300 mg 2-3 p.o. at bedtime as needed for restless legs. 6. Carvedilol 25 mg p.o. b.i.d. 7. Losartan 50 mg p.o. daily. 8. Hydrochlorothiazide 12.5 mg p.o. daily. 9. Aspirin 81 mg p.o. daily. 10. flonase two sprays nasally as needed for allergies. 11. Sucralfate 1 g p.o. q.i.d. as needed for stomach discomfort. 12. Glyburide 2.5 mg p.o. daily. DISCHARGE DIAGNOSIS: 1. Synchronous midtransverse colon cancer, status post transverse colectomy July 17, 2019. 2. Phlegmonous changes of the tail of pancreas in continuity with prior splenic flexure resection, status post core biopsy. 3. Segmental resection of midportion of stomach nodule, separate and distinct from colonic neoplasm. 4. Segmental resection of jejunum in continuity with metastatic lymph node of mid transverse colon mesentery. 5. History of perforated splenic flexure colon cancer with abscess in January 2019, status post resection, with [id number]-he-[id number] anastomosis, diverting loop ileostomy, subsequent takedown. 6. History of cholecystectomy with revision of ileoileostomy. 7. Diabetes. 8. Hypertension. 9. Obesity. 10. Bilateral pulmonary lesions suspicious for metastatic disease, non avid on PET scan. Electronically Signed By: POPEYE WOMACK MD 07/20/19 PATIENT NAME: CAPRICE AMADOR DISCHARGE SUMMARY DATE OF : 55 REPORT #: [id number] PHYSICIAN: POPEYE WOMACK MD PCP: YOKASTA MILLS REPORT IS CONFIDENTIAL AND NOT TO BE RELEASED WITHOUT AUTHORIZATION [address] [address] Signed MD CLEMENT Landon/MODL /[id number] cc: ARIANA Dempsey MD Copies: YOKASTA MILLS ROBERT C MD ~ Electronically Signed By: POPEYE WOMACK MD 07/20/194 PATIENT NAME: CAPRICE AMADOR DISCHARGE SUMMARY DATE OF : 55 REPORT #: [id number] PHYSICIAN: POPEYE WOMACK MD PCP: YOKASTA MILLS REPORT IS CONFIDENTIAL AND NOT TO BE RELEASED WITHOUT AUTHORIZATION
--- NOTE | 2019-07-24 13:19 | PATH ---
[facility] [address] [place], [place] [address] Signed SPECIMEN(S): A INCISIONAL SCAR SPECIMEN(S): B WEDGE EXCISION OF STOMACH SPECIMEN(S): C TRANSVERSE COLON, JEJUNUM TUMOR SPECIMEN(S): D DISTAL PANCREAS SPECIMEN(S): E RIGHT ABDOMINAL PERITONEAL NODULE SPECIMEN SOURCE: A. INCISIONAL SCAR B. WEDGE EXCISION OF STOMACH C. TRANSVERSE COLON, JEJUNUM TUMOR D. DISTAL PANCREAS E. RIGHT ABDOMINAL PERITONEAL NODULE CLINICAL HISTORY: Pre: Left colon lesion. Left colectomy. FINAL PATHOLOGIC DIAGNOSIS: A. Skin, incisional scar, excision: - Benign skin with dermal scar formation. B. Stomach, wedge excision: - Metastatic mucinous carcinoma within muscularis propria. - One tumor deposit in perigastric fibroadipose tissue (7 mm). - Two lymph nodes with no evidence of malignancy. - Oxyntic mucosa with no histopathologic abnormality. - Resection margins of stomach negative for carcinoma. C. Transverse colon and jejunum, resection: - Invasive adenocarcinoma with the following features: - Tumor site: Transverse colon. - Tumor size: 3.4 x 3.2 x 0.8 cm. - Macroscopic tumor perforation: Not identified. - Histologic type: Mucinous adenocarcinoma. - Histologic grade: Moderately differentiated - Tumor extension: Tumor invades through the muscularis propria into the pericolorectal tissue. - Margins: All margins are uninvolved by invasive carcinoma, high-grade dysplasia/intramucosal carcinoma, and low- grade dysplasia. - Margins examined: Proximal, distal and radial margins colonic margins. - Treatment effect: No known presurgical therapy. PATIENT NAME: CAPRICE AMADOR PATHOLOGY DATE OF : 55 REPORT #: [id number] PHYSICIAN: JERSEY MCQUEEN PCP: YOKASTA MILLS REPORT IS CONFIDENTIAL AND NOT TO BE RELEASED WITHOUT AUTHORIZATION [facility] [address] [place], [place] [address] Signed - Lymphovascular invasion: Not identified. - Perineural invasion: Not identified. - Tumor deposits: Not identified. - Regional lymph nodes: - Number of lymph nodes involved: 3 - Number of lymph nodes examined: 13 - Pathologic stage classification (pTNM, AJCC 8th edition): pT3 pN1b pM1b. - Jejunum adherent to colonic mesentery by fibrous adhesions (tumoral lymph nodes in adherent fat, see above). - Suture granulomas within omentum and pericolonic fat. - See Comment. D. Pancreas, distal, biopsy: - Metastatic mucinous carcinoma within fibrous tissue. - No pancreatic parenchyma identified. E. Peritoneal nodule, right abdomen, excisional biopsy: - Fibrotic peritoneum with polarizable foreign material and associated foreign body-type giant cell reaction. - Negative for malignancy. COMMENT: The history of colonic resection for mucinous carcinoma with a positive radial margin in 01/2019 is noted. Mismatch repair (MMR) testing by IHC, interpreted as suggestive of MLH1 mutation, was previously performed on the colon biopsy at 80 cm from 05/11/2019 ([id number]) and was reported as: - MLH1: Loss of nuclear expression. - MSH2: Intact nuclear expression. - MSH6: Intact nuclear expression. - PMS2: Loss of nuclear expression. The segment of jejunum in specimen C is adherent to the colonic mesentery by fibrous adhesions and lymph nodes involved by tumor within the mesentery. Metastatic carcinoma is identified in the stomach wall (B) and distal pancreatic area (D), consistent with a pathologic stage of pM1b. As part of [facility]' Quality Improvement Program, this case was reviewed by another member of our pathology staff (TK). NAL:caw:C1NR MICROSCOPIC EXAMINATION: Histologic sections of all submitted blocks are examined by light microscopy. PATIENT NAME: CAPRICE AMADOR PATHOLOGY DATE OF : 55 REPORT #: [id number] PHYSICIAN: JERSEY PATHOLOGY PCP: YOKASTA MILLS REPORT IS CONFIDENTIAL AND NOT TO BE RELEASED WITHOUT AUTHORIZATION [facility] [address] [place] [phone] Signed These findings, together with the gross examination, support the pathologic diagnosis. GROSS DESCRIPTION: Five specimens are received in five containers, labeled "Caprice Amador." A. The specimen, labeled "Caprice Amador," and designated on the requisition "incisional scar," is received in formalin and consists of a 19.8 x 0.8 x 0.6 cm, unoriented ellipse of skin. The skin surface is pale graves and wrinkled with a well-healed, hypopigmented linear scar. Enamel Burner sections are submitted in cassette (A1). B. The specimen, labeled "Caprice Amador," and designated on the requisition "wedge excision portion of stomach," is received in formalin and consists of 5.2 x 2.1 x 0.6 cm elliptical portion of stomach wall, with attached adipose tissue. The serosal surface is focally congested with a palpable nodule that is 1.5 x 1.5 x 1.3 cm. The serosal surface overlying the nodule is inked blue. The stomach wall resection margin is inked black. The mucosal surface is pink and finely granular. The stomach wall has an average thickness of 0.6 cm. Serially sectioning reveals a pink granular, well-circumscribed nodule that does not grossly involve the overlying mucosa, is 0.4 cm from the closest stapled resection margin and abuts the serosal surface. Upon sectioning, three additional lymph nodes are grossly identified. Several vessels within the adipose tissue display 100% occlusion. Enamel Burner sections are submitted in six cassettes. Cassette summary: (B1-B2) palpable nodule (B3) uninvolved stomach wall (B4) occluded vessels (B5) two possible lymph nodes, submitted whole (B6) one possible lymph node, trisected. C. The specimen, labeled "Caprice Amador," and designated on the requisition "transverse colon with tumor portion of jejunum with metastasis," is received in formalin and consists of one unoriented segment of large bowel that is 8.5 cm in length and has an average internal circumference of 6.5 cm. The specimen has been previously opened. Attached to the segment of large bowel is a portion of omentum that is a 20.5 x 17.6 x 2.0 cm. Attached to the mesentery is a 3.5 x 2.9 x 2.5 cm, unoriented segment of small bowel. The attachment site is indurated, focally congested with a PATIENT NAME: CAPRICE AMADOR PATHOLOGY DATE OF : 55 REPORT #: [id number] PHYSICIAN: JERSEY PATHOLOGY PCP: YOKASTA MILLS REPORT IS CONFIDENTIAL AND NOT TO BE RELEASED WITHOUT AUTHORIZATION [facility] [address] [place], [place] [address] Signed firm palpable nodule within the mesentery. The serosa is smooth with a black dye discoloration that extends into the omentum and adjacent mesentery. The large bowel displays a 3.4 x 3.2 x 0.8 cm pink, centrally ulcerated mass which is 2.4 cm from the closest resection margin, 3.0 cm from the opposite resection margin, 7.5 cm from the vascular root, and 0.9 cm from the blue inked serosal surface. Sectioning through the mass reveals extension through the muscularis propria and into the adjacent adipose tissue. Sectioning through the attached omentum reveals one yellow-white, firm, rubbery nodule that is 0.7 cm in greatest dimension. The omentum also displays one area of slight induration, measuring 1.5 cm in greatest dimension. Sectioning through the pericolonic adipose tissue reveals eight possible lymph nodes. The adipose tissue is placed into lymph node clearing fixative and additional graves possible lymph nodes are grossly identified. Enamel Burner sections are submitted in 16 cassettes. Cassette summary: (C1) closest resection margin, shave (C2) opposite resection margin, shave (C3) vascular root resection margin, shave (C4) mass to adjacent adipose tissue (C5) mass to uninvolved bowel wall and serosa (C6-C7) small bowel wall resection margin, shave (C8) small bowel wall to adherent mesentery, with underlying nodule (C9) omentum with nodule and area of induration (C10) uninvolved bowel wall (C11) uninvolved large and small bowel (C12) five possible lymph nodes, submitted whole (C13) three possible lymph nodes, submitted whole (C14) six possible lymph nodes, submitted whole (C15) one possible lymph node, bisected (C16) three possible lymph nodes, submitted whole D. The specimen, labeled "Caprice Amador," and designated on the requisition "biopsy distal pancreas," is received in formalin and consists of multiple white needle core tissue fragments, that range in length from 0.1 cm up to 1.4 cm and have an average diameter of less than 0.1 cm. The tissue is inked with eosin and entirely submitted in cassettes (D1-D2). E. The specimen, labeled "Caprice Amador," and designated on the requisition "right abdominal peritoneal nodule," is received in formalin and PATIENT NAME: CAPRICE AMADOR PATHOLOGY DATE OF : 55 REPORT #: [id number] PHYSICIAN: JERSEY MCQUEEN PCP: YOKASTA MILLS REPORT IS CONFIDENTIAL AND NOT TO BE RELEASED WITHOUT AUTHORIZATION [address] [address] Signed consists of a 2.6 x 0.9 x 0.7 cm, pink-white rubbery tissue fragment that contains transparent suture-like material. The specimen is inked, serially sectioned and entirely submitted in cassette (E1). FB (under the direct supervision of a pathologist) Additional 11 possible lymph nodes are identified per Dr. Roe request. They range in size from 0.4-1.2 cm in greatest dimension. Cassette summary: (C 17) six possible lymph nodes, whole submitted (C 18) four possible lymph nodes, whole submitted (C 19) one possible lymph node, serial section JS (under the direct supervision of a pathologist) The Gross Description was prepared using a voice recognition system. The report was reviewed for accuracy; however, sound-alike word errors, addition and/or deletions may occur. If there is any question about this report, please contact Client Services. PERFORMING LABORATORY: The technical component was performed by [facility] [address] (Leaf Blender: Harleen Jeffers MD; CLIA# [id number]). Professional [place] [address] (CLIA# [id number]). Diagnostician: Shobha Roe MD Pathologist Electronically Signed 07/24/2019 Copies: ~ PATIENT NAME: CAPRICE AMADOR PATHOLOGY DATE OF : 55 REPORT #: [id number] PHYSICIAN: JERSEY PATHOLOGY PCP: YOKASTA MILLS REPORT IS CONFIDENTIAL AND NOT TO BE RELEASED WITHOUT AUTHORIZATION
== END 2019-07-20 13:54 | disposition home or self-care (01) | DRG 326 ==
LOC: MS 06-12 11:00 → DSVR 07-17 05:46 → MS 07-17 05:46
PROVIDERS: ADMIT Surgery
PROC: 0DBA0ZZ Excision of Jejunum, Open Approach (ICD-10-PCS; 2019-07-17)
PROC: 0FBG0ZX Excision of Pancreas, Open Approach, Diagnostic (ICD-10-PCS; 2019-07-17)
PROC: 0WBF0ZX Excision of Abdominal Wall, Open Approach, Diagnostic (ICD-10-PCS; 2019-07-17)
PROC: 0WBH0ZX Excision of Retroperitoneum, Open Approach, Diagnostic (ICD-10-PCS; 2019-07-17)
PROC: 02HV33Z Insertion of Infusion Device into Superior Vena Cava, Percutaneous Approach (ICD-10-PCS; 2019-07-17)
PROC: 0DTL0ZZ Resection of Transverse Colon, Open Approach (ICD-10-PCS; principal; 2019-07-17 06:45)
PROC: 0DB60ZX Excision of Stomach, Open Approach, Diagnostic (ICD-10-PCS; 2019-07-17 06:45)
DX: C18.4 Malignant neoplasm of transverse colon (principal); K85.90 Acute pancreatitis without necrosis or infection, unspecified; C77.2 Secondary and unspecified malignant neoplasm of intra-abdominal lymph nodes; E66.9 Obesity, unspecified; I10 Essential (primary) hypertension; E11.65 Type 2 diabetes mellitus with hyperglycemia; R91.8 Other nonspecific abnormal finding of lung field; K31.89 Other diseases of stomach and duodenum; Z88.0 Allergy status to penicillin; Z87.891 Personal history of nicotine dependence; Z80.0 Family history of malignant neoplasm of digestive organs; Z79.899 Other long term (current) drug therapy; Z79.82 Long term (current) use of aspirin; Z79.891 Long term (current) use of opiate analgesic; Z79.51 Long term (current) use of inhaled steroids; Z79.4 Long term (current) use of insulin; Z68.32 Body mass index [BMI] 32.0-32.9, adult
CPT/HCPCS: 71045; 76942; 80053; 82150; 85025; 88304; 88305; 88307; 88309; J0131; J0690; J1100; J1170; J1644; J1815; J1885; J2250; J2270; J2405; J2550; J2704; J2795; J3010; J7121

== ENCOUNTER 2020-10-14 08:45 | Day surgery (SDC) | payer MEDICARE, OTHER ==
[~2020-10-14] VITALS: Ht 165.1 cm; Wt 95.0 kg
[~2020-10-14 08:45] MED LIST changes: +ATIVAN1 MG PO; +DOXYCYCLINE HY100 MG PO; +HYDROCODON-ACE1 EA10 PO; +OXYCODONE HCL5 MG PO; +SERTRALINE HCL25 MG PO
[2020-10-14] MEDS ORDERED: PRILOSEC2.5 MG PO (09:06)
--- NOTE | 2020-10-14 10:33 | NUR ---
10/14/20 1033 Ara Jeter 1027 PATIENT ARRIVES TO PACU AWAKE, ANSWERS QUESTIONS APPROPRIATELY. RESP EVEN AND UNLABORED, NC AT 3 LITERS. PATIENT DENIES PAIN OR NAUSEA. 1033 PATIENT SITTING UP DRINKING JUICE. OXYGEN OFF, ROOM AIR SATS >95%.
--- NOTE | 2020-10-21 14:34 | OR ---
[facility] [address] [place], [place] [address] Signed DATE OF OPERATION: 10/14/2020 SURGEON: Popeye Womack MD PREOPERATIVE DIAGNOSES: 1. Stage IV colon cancer, on Keytruda. 2. History of perforated splenic flexure related to colon cancer, status post left partial colectomy with subsequent 2nd tumor mid transverse colon, status post transverse colectomy with portion of stomach resected (May 2019). POSTOPERATIVE DIAGNOSIS: Extensive diverticulosis sigmoid and remaining colon. PROCEDURE: Total colonoscopy without specific visualization of the cecum. ANESTHESIA: Intravenous sedation; fentanyl 150 mcg, Versed 8 mg. INDICATION: This 65-year-old white woman has a complex surgical history including perforated colon cancer of the splenic flexure requiring abscess drainage, left partial colectomy with primary anastomosis, and diverting loop ileostomy. She subsequently developed cholecystitis, underwent cholecystectomy and takedown of loop ileostomy. She later on colonoscopy was found to have a mid transverse colon lesion for which laparotomy was once again performed and transverse colectomy undertaken. Transverse colon lesion was penetrating into the stomach and a wedge excision of a portion of the stomach undertaken as well as wide resection of lymph nodes in the region of the middle colic artery. CT scan findings showed mediastinal and pulmonary metastases, but no hepatic metastases. She has been on Keytruda under the direction of Dr. Obregon for quite some time and has remained in a reasonably good remission with that agent. She recently underwent a CT scan, results of which are pending under the direction of Dr. Obregon and surveillance colonoscopy at this time has been recommended. The risks of bleeding, infection, and perforation were reviewed with her. She understands and wished to proceed. FINDINGS: The prep was good. There were numerous diverticula of the colon evaluated. Anastomosis was widely patent. Specific visualization of the cecum could not be assured. The scope was difficult to pass in the most proximal portion, likely related to distortion from Electronically Signed By: POPEYE WOMACK MD 10/21/20 1434 PATIENT NAME: CAPRICE AMADOR OPERATIVE REPORT DATE OF : 55 REPORT #: [id number] PHYSICIAN: POPEYE WOMACK MD PCP: YOKASTA MILLS REPORT IS CONFIDENTIAL AND NOT TO BE RELEASED WITHOUT AUTHORIZATION [facility] [address] [place], [place] [address] Signed anatomic configuration and diverticulosis. Rather than hazard perforation, the colonoscopy was abandoned before actual visualization of the cecum itself. DESCRIPTION OF PROCEDURE: The patient was brought to the endoscopy suite and placed in lateral decubitus position, given intravenous sedation to the point of slurred speech and nystagmus with full cardiopulmonary monitoring. Digital rectal examination was normal. An Olympus video colonoscope was passed in the rectum and manipulated throughout the colon. Numerous diverticula are seen in the sigmoid and federico left colon. Upon passage into the distal most portion, angulation deformity, diverticular density, and so forth precluded much progress. I am uncertain that the cecum was truly evaluated. Rather than hazard to perforation with further efforts, the patient was becoming more distended. The scope was carefully withdrawn and examination throughout showed only the diverticula. No sign of polyps or anastomotic stricture. She was taken to the recovery room in good condition. CONCLUDING DIAGNOSIS: No clear evidence of recurrent or new cancer or polyps. PLAN: She will return to the ongoing care of Dr. Obregon with Keytruda as a palliative agent. Consideration for repeat colonoscopy will be made in the future at 1 year or so. Popeye Womack MD JM/MODL /[id number] cc: ARIANA Dempsey MD Copies: YOKASTA MILLS Electronically Signed By: POPEYE WOMACK MD 10/21/20 1434 PATIENT NAME: CAPRICE AMADOR OPERATIVE REPORT DATE OF : 55 REPORT #: [id number] PHYSICIAN: POPEYE WOMACK MD PCP: YOKASTA MILLS REPORT IS CONFIDENTIAL AND NOT TO BE RELEASED WITHOUT AUTHORIZATION [address] [place], [place] [address] Signed NIELS OBREGON MD ~ Electronically Signed By: POPEYE WOMACK MD 10/21/20 1434 PATIENT NAME: CAPRICE AMADOR OPERATIVE REPORT DATE OF : 55 REPORT #: [id number] PHYSICIAN: POPEYE WOMACK MD PCP: YOKASTA MILLS REPORT IS CONFIDENTIAL AND NOT TO BE RELEASED WITHOUT AUTHORIZATION
== END 2020-10-14 11:00 | disposition home or self-care (01) ==
LOC: OPS 08:45 → DS 08:45 → OPS 10:00
PROVIDERS: ATTEND Surgery
PROC: 0DJD8ZZ Inspection of Lower Intestinal Tract, Via Natural or Artificial Opening Endoscopic (ICD-10-PCS; principal; 2020-10-14 10:00)
DX: Z12.11 Encounter for screening for malignant neoplasm of colon (principal); K57.30 Diverticulosis of large intestine without perforation or abscess without bleeding; C78.00 Secondary malignant neoplasm of unspecified lung; C78.1 Secondary malignant neoplasm of mediastinum; I25.2 Old myocardial infarction; E11.9 Type 2 diabetes mellitus without complications; I11.0 Hypertensive heart disease with heart failure; I50.9 Heart failure, unspecified; Z88.0 Allergy status to penicillin; Z87.891 Personal history of nicotine dependence; Z79.4 Long term (current) use of insulin; Z80.0 Family history of malignant neoplasm of digestive organs; Z86.59 Personal history of other mental and behavioral disorders; Z90.49 Acquired absence of other specified parts of digestive tract; Z85.038 Personal history of other malignant neoplasm of large intestine
CPT/HCPCS: 99153; G0500; J2250; J3010; J7121

== ENCOUNTER 2021-06-19 07:00 | Observation (INO) | payer MEDICARE, OTHER ==
[~2021-06-19] VITALS: Ht 162.6 cm; Wt 93.0 kg
[~2021-06-19 07:00] MED LIST changes: +PRILOSEC OTC20 MG PO
--- NOTE | 2021-06-19 08:03 | NUR ---
PT ALERT, ORIENTED AND TRA WILL WAIT OUT IN CAR. GAVE ENCOURAGEMENT, PT REQUESTED PRAYER. WILL FOLLOW NEEDED
--- NOTE | 2021-06-19 11:38 | NUR ---
06/19/21 1138 Sheets,Angelique 1127 PT ARRIVED TO PACU ON 6L VIA MASK, ORAL AIRWAY IN PLACE AND RESP EVEN AND UNLABORED. VSS. PT NONAROUSABLE.
--- NOTE | 2021-06-19 12:25 | NUR ---
Received patient from PACU, bedside report was received. Patient still a little drowsy, reporting now pain. Gillis catheter still in place, plan to d/c later today. IV fluids infusing, SCDs on, abdominal binder on. Surgical sites were assessed.
--- NOTE | 2021-06-19 14:30 | NUR ---
Patient in pain, PRN medications will be given, removed oxygen tubing at this time and placed patient on to RA, saturations 97%
--- NOTE | 2021-06-19 15:35 | NUR ---
Patient resting in bed, pain level now a 5 out of 7. Oxygen replaced RA sats 90-92%
--- NOTE | 2021-06-19 15:48 | NUR ---
Patient reqested pain medication for a pain of 7 out of 10. Morphine IV was given. GIA drains assessed and the RLQ reinforce due to drainaged. GIA drains emptied as well.
--- NOTE | 2021-06-19 16:18 | NUR ---
patient sleeping at this time, at bedside.
--- NOTE | 2021-06-19 17:23 | NUR ---
PATIENT HAS DINNER AT THE BEDSIDE, ASSIST THE PATIENT TO SITTING UP AND ELEVATED THE HEAD OF BED. ECKERT IS TO BE REMOVED AFTER SHE EATS AND SITS AT THE EDGE OF THE BED.
--- NOTE | 2021-06-19 17:45 | NUR ---
2 Percocet's given for her pain level of 8.
--- NOTE | 2021-06-19 23:07 | NUR ---
rESTING, HOB ELEVATED, EYES CLOSED, NO DISTRESS, SATS 94%, o2 WAS LEFT ON POST OP NURSING DISCRETION, CPOX AT BEDSIDE, IVF INFUSING. SCDS IN PLACE
--- NOTE | 2021-06-20 00:53 | NUR ---
resting, eyes closed, hob elevated to comofrt. O2 2LNC per comofrt/post op. cpox at bedside 94%. p55, R16, no distress, IVF infusing w/o problems, scds inplace, wearing abd binder. 2jp patent
--- NOTE | 2021-06-20 02:22 | NUR ---
PT COOPERATIVE WITH VITALS, AWAKES EASILY, DECLINES SCHEDULED ULTRAM AT THIS TIME. "Apollo VERY COMOFRTABLE 1-2 LEG PAIN. "i RATHER BE MEDICATED AT 0600 WHEN APOLLO WAKING UP" STATED. CHARGE NURSE NOTIFIED. PT CALM, NO DISTRESS NOTED. TOLERATING LIQUIDS WELL
--- NOTE | 2021-06-20 04:25 | NUR ---
f/c dc'd at this time, procedure explained, pt cooperative. tip intact
--- NOTE | 2021-06-20 05:07 | NUR ---
Pt on room air at this time, was placed on O2 2LNC when sleeping. off now, CPOX at bedside post op. sats 96% on room air, hob elevated to comfort. midline abd incision covered, 2JP draining sanguineous drainage. abd binder inplace. KAELYN, states passing gas. Up to edge of bed and walked to recliner chair, back to bed, tolerated well. f/c dc'd at 0420. no void yet. aware of bladder scanning if no void by 0800. procedure explained, cooperative IVF infusing w/o problems. SCDS in place, trace edema to ankles. elevated. tolerating liquids well, no emesis, has been medicated with Morphine X1, Percocet x1, motrin x1, effective. tolerating liquids well, no emesis, uses call light, helps with repositioning.
--- NOTE | 2021-06-20 05:51 | NUR ---
Pt up to br, voided, abd binder repositioned, midline abd incision covered with Opticot. 2 GIA w sanguineous drainage. scds in place, cpox post op dc'd at this time. IVF infusing , tolerated well. helped with repositioning.
--- NOTE | 2021-06-20 07:30 | NUR ---
IN TO ASSESS PT WHO IS ALERT, ORIENTED, WITH GOOD SKIN TONE. PT STANDBY ASSIST TO BATHROOM, VOIDED, NO BM. PT REPORTS 7/10 PAIN WITH PAIN MEDS GIVEN. MIDLINE DRESSING IN PLACE, CLEAN, DRY, AND INTACT. SMALL SHADOWED AREA CIRCLED, NO NEW DRAINAGE NOTED. GIA DRAINS X2 IN PLACE, BOTH DRAINING SMALL AMOUNT OF SANGUINOUS FLUID. PT REQUESTING TO EAT BREAKFAST AFTER PAIN MEDICATION STARTS TO RELIEVE PAIN. PT HAS NO OTHER REQUESTS AT THIS TIME. CALL LIGHT WITHIN REACH.
--- NOTE | 2021-06-20 07:42 | NUR ---
BLOOD GLUCOSE CHECK WAS 212.
--- NOTE | 2021-06-20 09:45 | NUR ---
PT. AMBULATED ONE LAP AROUND THE UNIT WITH SBA. TOLERATED WELL. GIA EMPTIED OF 60ML SANGUINOUS DRAINAGE. LEFT RESTING WITH CALL LIGHT INREACH.
--- NOTE | 2021-06-20 11:55 | NUR ---
PT UP TO BATHROOM AND FOR A WALK AROUND THE UNIT. REPORTED 6/10 PAIN, IV MORPHINE GIVEN. PT DIAPHORETIC FOR UNKNOWN REASON. PT SITTING UP IN BED, LUNCH TRAY GIVEN, FAMILY IN ROOM.
--- NOTE | 2021-06-20 13:27 | NUR ---
UPDATED DR WOMACK ON PT'S INCREASED PAIN WITH AMBULATION AND CONTINUED OUTPUT OF SANGUINOUS DRAINAGE FROM L GIA DRAIN. PER DR, PT WILL NEED TO STAY AN ADDITIONAL NIGHT TO AID IN CONTROLLING PAIN WITH ORAL ONLY MEDICATIONS, AND TO ASSESS IF GIA DRAINAGE BEGINS TO SLOW DOWN. EXPLAINED TO PT WHO IS AGREEABLE WITH THIS PLAN. PT AMBULATED TO BATHROOM FOR 300ML VOID AND EMPTIED ANOTHER 40ML FROM L GIA DRAIN. PT NOW SITTING UP IN BED, CALL LIGHT WITHIN REACH, FMAILY AT BEDSIDE.
--- NOTE | 2021-06-20 15:30 | NUR ---
CALLED DR WOMACK RE PT'S ELEVATED INSULIN READINGS TODAY, RELAYED PT'S HOME MED OF 25UNITS HUMALOG BID, AND GAVE VERBAL ORDER TO RESUME THIS MEDICATION WHILE THE PT IS HERE. CALL TO KATHERINE MAYER WHO WILL REVIEW AND PUT IN ORDER PER DR WOMACK'S GUIDELINES. PT UP TO BATHROOM AND FOR A WALK AROUND THE UNIT, TOLERATED WELL. VERY LITTLE SANGUINOUS FLUID NOTED IN L GIA DRAIN, NO NEW DRAINAGE NOTED IN R GIA. PT ALERT, ORIENTED, STABLE. REPORTS PAIN IS WNL AT THIS TIME. PT HAS NO NEW NEEDS OR REQUESTS. CONTINUOUS IV INFUSION.
--- NOTE | 2021-06-20 20:24 | NUR ---
in bed, room air, hob elevated, clear lungs, abd midline incision covered with Opticot, and opsite, 2 GIA with sanguineous drainage in place. teachaing done with pt r/t care and emptying. cont to reinforce teaching with family. spt semireceptive. IVF infusing w/o prblems RH, scds in [place, elevatred trace edema at ankles. Medicated after caming back from BR, per abd pain. w motrin 600mg po. tolerated getting back well, helps with repositioning. no n/v. uses call light and tolerating liquids well, voiding QS. passing gas, no bm. pleasant, alert and oriented
--- NOTE | 2021-06-20 22:24 | NUR ---
RESTING, EYES CLOSED, NO DISTRESS, IVF INFUSING W/O PRBLEMS. SCDS IN PLACE. ABD BINDER PROPERTY ADJUSTER LIGHT AND FLUIDS AT BEDSIDE
--- NOTE | 2021-06-20 22:52 | NUR ---
MEDICATED WTIH 2 PERCOCET, C/O 10 ABD PAIN. MIDLINE ABD DRESSING OPTICOT WITH OLD DRAINAGE AT BASE, COVERED WITH OPSITE. 2 GIA WITH SCANT AMOUNT OF DRAINAGE AT THIS TIME. ABD SOFT, KAELYN, PASSING GAS, NO BM.
--- NOTE | 2021-06-21 01:23 | NUR ---
AWAKENS EASILY, ON ROOM AIR, DENIES C/O ABD PAIN AT THIS TIME. IVF INFUSING, SCDS ON. CALL LIGHT T HANDS REACH
--- NOTE | 2021-06-21 01:39 | NUR ---
uP TO BR, VOIDED, SBA, BACK TO BED, ABD BINDER INPLACE. [address], ABD SOFT, PASSING GAS, NO BM
--- NOTE | 2021-06-21 01:48 | NUR ---
MEDICATED WITH MOTRIN 600MG 5/10 ABD PAIN. MIDLINE INCISION WITH SLIGHT OLD DRAINAGE AT BASE OF OPTICOT DRESSING. 2 GIA WITH SCANT AMOUNT OF SANGUINEOUS DRAINAGE, ABD SOFT, TENDER, KAELYN. PASSING GAS, NO BM. TOLERATING LIQUIDS WELL.
--- NOTE | 2021-06-21 03:50 | NUR ---
PT. NURSE REQUESTED THIS COTTON CLASSER TO DO BS. CHECK. BS TAKEN AND REPORTED TO THE NURSE.
--- NOTE | 2021-06-21 05:11 | NUR ---
ON ROOM AIR, MIDLINE ABD INCISION COVERED WITH OPTICOT AND OPSITE. SCANT OLD DRAINAGE AT BASE. 2 GIA WITH SMALL AMOUNT OF SANGUINEOUS DRAINAGE. ABD SOFT, TENDER, KAELYN, PASSING GAS, NO BM. IVF INFUSING W/O PROBLEMS, SCDS IN PLACE. HAS BEEN MEDICATED WITH MORPHINE IV, PERCOCET AND MOTRIN PER ABD PAIN WITH GOOD PAIN RELIEF, NO EMESIS, TOLERATING LIQUIDS WELL. USES CALL LIGHT, SBA WHEN UP TO BR, VOIDING QS. ALERT, ORIENTED, PLEASANT AND COOP. STATED SHE FEELS BETTER AND IS LOOKING FORWARD TO BEING DC TODAY.
--- NOTE | 2021-06-21 06:51 | NUR ---
Up to br, voided large amount of yellow urine, abd incision covered with opticot soft, tender, passing gas no bm. GIA patent back to bed, SBA, medicated w 2 Percocet c/o abd pain. tolerating liquids well, IVF infusing. uses call light, SCDS off at this time.
--- NOTE | 2021-06-21 08:20 | NUR ---
IN TO PT'S ROOM FOR MORNING ASSESSMENT, PT ALERT, ORIENTED, WITH GOOD SKIN TONE. PT REPORTS 4/10 ABD PAIN, WORSENING WITH AMBULATION. PT HAS NOT HAD A BM SINCE THE SURGERY AND IS REQUESTING HOT COFFEE "TO GET THINGS WORKING". ABD SOFT TO PALPATION, BOWEL TONES HEARD THROUGHOUT ALL QUADRANTS, INCISION SITE DRESSING DRY AND INTACT, NEW SMALL AREA OF DRAINAGE NOTED AT THE BOTTOM OF THE DRESSING. R GIA DRAIN IN PLACE, NO NEW DRAINAGE NOTED. L GIA IN PLACE, SMALL AMOUNT OF SANGUINOUS DRAINAGE NOTED, LINE STRIPPED, AIR REMOVED FOR SUCTION. PT REPORTS NO "HOT FLASHES" SINCE YESTERDAY. MORNING MEDS GIVEN, IV CONTINUES TO INFUSE. PT REPORTS SHE IS READY TO GO HOME.
--- NOTE | 2021-06-21 08:53 | NUR ---
PT. USED CALL LIGHT APPROPRIATELY FOR ASSISTANCE TO THE BATHROOM. AMBULATED WITH SBA AND TOLERATED WELL. INSTRUCTED TO USE CALL LIGHT WHEN FINISHED.
--- NOTE | 2021-06-21 10:49 | NUR ---
PT SITTING UP IN BED WATCHING TELEVISION. PT REQUESTING SHOWER WHEN THE CAP AND HAT PRODUCTION SUPERVISOR IS READY. PT REPORTS 4/10 PAIN AND IS REQUESTING SOME MOTRIN. L SIDE GIA HAS APPROX 15ML MEDIUM TO LIGHT RED DRAINAGE. VITAL SIGNS STABLE. PT REPORTS SHE IS PASSING A LARGE AMOUNT OF GAS, WITH ONE SMALL BM THIS AM NOTED. BOWEL TONES ACTIVE. FLUIDS CONTINUE TO INFUSE. PT ALERT, ORIENTED, AND STABLE.
[2021-06-21] MEDS ORDERED: LORAZEPAM1 MG PO (11:24)
[2021-06-21] MEDS ORDERED: NOVOLOG MI100 UNIT/2 SUB-Q (11:24)
[2021-06-21] MEDS ORDERED: METFORMIN HCL750 MG PO (11:25)
[2021-06-21] MEDS ORDERED: ATORVASTATIN CA80 MG PO (11:26)
--- NOTE | 2021-06-21 11:54 | NUR ---
MED REC COMPLETE
--- NOTE | 2021-06-21 13:29 | NUR ---
IN TO CHECK ON PT WHO HAS JUST HAD A BED BATH AND IS REPORTING SHE IS FEELING A LOT BETTER. 5/10 PAIN, PERCOCET X2 GIVEN. PT CONTINUES TO HAVE MINIMAL DRAINAGE FROM L GIA, NONE FROM R GIA. PT AWARE DR WOMACK IS HERE AND REPORTS SHE WANTS TO DC HOME.
[2021-06-21] MEDS ORDERED: OXYCODON-ACETA1 EAC2 PO (15:24)
[2021-06-21] MEDS ORDERED: IBUPROFEN600 MG PO (15:24)
[2021-06-21] MEDS ORDERED: ACETAMINOPHEN500 MG PO (15:24)
--- NOTE | 2021-06-21 16:18 | NUR ---
ALL DISCHARGE INSTRUCTIONS REVIEWED WITH PATIENT AND ALL QUESTIONS ANSWERED. PT. LEFT WITH ALL BELONGINGS VIA WHEELCHAIR WITH CENTRIFUGAL CHILLER TECHNICIAN. THIS RN REMOVED IV WITH CATH INTACT AND PT PROVIDED WITH EDUCATION . VITALS STABLE AND PT. DENIES PAIN
--- NOTE | 2021-06-21 16:30 | OR ---
[facility] [address] [place], [place] [address] Signed DATE OF OPERATION: 06/19/2021 SURGEON: Popeye Womack MD PREOPERATIVE DIAGNOSES: 1. Complex incarcerated incisional hernia, midline abdomen (small bowel incarceration). 2. Obesity. 3. History of stage IV colon cancer, on Keytruda maintenance therapy. POSTOPERATIVE DIAGNOSES: 1. Complex incarcerated incisional hernia, midline abdomen (small bowel incarceration). 2. Obesity. 3. History of stage IV colon cancer, on Keytruda maintenance therapy. 4. A 4 cm peritoneal mass (excised). 5. Fascial defect 12 cm maximum dimension. PROCEDURE: 1. Repair and reduction of incarcerated incisional hernia; component separation on left and right sides with medialization of the midline fascia. 2. Implantation of Prolene mesh underlay technique. 3. Excision of peritoneal mass ( 4cm, smooth but worrisome for malignancy) ANESTHESIA: General endotracheal, Sara Candice, CREDIT CASHIER and local 20 mL of 0.25% Marcaine with epinephrine. INDICATIONS: This 65-year-old white woman is well known to me from the past, initially having presented with a perforated colon cancer requiring segmental resection, primary anastomosis, and diverting protective loop ileostomy. She subsequently had acute cholecystitis and at that time underwent takedown of the ileostomy and cholecystectomy. The perforated colon was found related to the colon cancer. She underwent subsequent colonoscopy to assess for synchronous lesions and indeed did have synchronous cancer more proximally requiring additional resection. She has been treated with chemotherapy and ultimately Keytruda, which helps maintain remission for her. She has over time developed a significant incisional hernia that shows non-reduction and on the imaging studies (CT scan) shows small bowel as part of the incarcerated viscus. A recent PET scan has shown no progression of disease, testifying to the benefit of Keytruda. She is referred by Dr. Obregon for incisional hernia repair. Additional Electronically Signed By: POPEYE WOMACK MD 06/21/21 1630 PATIENT NAME: CAPRICE AMADOR OPERATIVE REPORT DATE OF : 55 REPORT #: [id number] PHYSICIAN: POPEYE WOMACK MD PCP: NIELS OBREGON MD REPORT IS CONFIDENTIAL AND NOT TO BE RELEASED WITHOUT AUTHORIZATION [facility] [address] [place] [id number] Signed Keytruda is held and advanced pending completion of this repair. Her primary provider currently is Dr. Kishan Vogel. The patient understands the risks of operation to repair the hernia, including, but not limited to, bleeding, infection, recurrent hernia, need for other indicated procedures and so on. FINDINGS: The fascial defect was in the midline and was certainly an incisional hernia. The fascial defect was approximately 12 cm in length and at least 6-8 cm in width. Reduction of the incarcerated small bowel from its separate and distinct hernia sac was accomplished without problem. Within the peritoneal cavity adherent to peritoneum that made up part of the hernia sac was a smooth 4 cm mass, which I suspect is probably malignant. She did not have generalized carcinomatosis or ascites. That mass was excised and passed for permanent pathology. Repair consisted of component separation, medialization of the rectus with division of the external oblique fascia just outside the semi-lunar line of the rectus bilaterally. This allowed for medialization of the fascia. Implantation of Prolene mesh in the submuscular position (extraperitoneal) was accomplished as well. She tolerated the procedure well. DESCRIPTION OF PROCEDURE: The patient was brought to the operating room, given a general endotracheal anesthetic. Preoperative antibiotic clindamycin was given. Gillis catheter was placed. The abdomen was prepared with a chlorhexidine solution and draped sterilely. Palpation revealed a knot in the area of the abdomen as well as a bulky, somewhat amorphous hernia emanating primarily to the right side, it did not reduce particularly. A midline incision made above the umbilicus. Dissection carried through the subcutaneous tissue with blunt electrocautery dissection, ultimately defining the bulky hernia sac. The fascial edges were identified on the left side initially and freed from the underlying hernia sac and the properitoneal space developed circumferentially. Position change was made allowing for dissection on the right side. This was the side that had a small bowel within the sac. This was reduced after freeing the protuberant hernia sac from the lateral inferior subcutaneous space. The fascial edges were defined superiorly and inferiorly to the right side developing the properitoneal space quite extensively at least 6-8 cm. Found within the main portion of the hernia sac was a firm mass, it was actually palpable preoperatively. This represented not a hernia, but rather a nodule. The peritoneal sac was opened revealing the intraabdominal contents, colon was not far from this. There was no sign of ascites or carcinomatosis, but the nodule in question measuring approximately 4 cm was a smooth tumor of some sort. This was excised in continuity with the peritoneum and passed for permanent pathology. The hernia sac Electronically Signed By: POPEYE WOMACK MD 06/21/21 1630 PATIENT NAME: CAPRICE AMADOR OPERATIVE REPORT DATE OF : 55 REPORT #: [id number] PHYSICIAN: POPEYE WOMACK MD PCP: NIELS OBREGON MD REPORT IS CONFIDENTIAL AND NOT TO BE RELEASED WITHOUT AUTHORIZATION [facility] [address] [place], [place] [address] Signed defect was closed with running 2-0 Vicryl suture. It appeared clear that short of simply bridging mesh in an underlay technique, medialization of the rectus abdominis would be most beneficial for repair. On that basis, component separation technique was deemed advisable. Subcutaneous tissue on the right side of the abdomen was freed with electrocautery. Perforating vessels were preserved as much as possible. The junction between the rectus abdominis and the external oblique was identified and about a centimeter or two from it. The fascia was incised longitudinally freeing the external oblique and allowing for medialization of the right rectus abdominis. With similar technique, the left side was similarly mobilized fully. A 6 inch x 6 inch piece of Prolene mesh was cut to an elliptical configuration, corner to corner to add to its length. This was then secured in the properitoneal space with interrupted 0-Prolene suture with Prolene pledgets. Overlap of the fascia was at least 4 cm and possibly larger in the medial aspect. Midline fascia was then reapproximated with running 0-Prolene suture medializing the linea alba fibers quite nicely and without undue tension. Irrigation was undertaken and 20 mL of 0.25% Marcaine was injected for local analgesic benefit. Through two separate stab incisions in the inferior aspect, 7 mm flat Mario drains were placed in lateral gutters. Wendi layer was reapproximated with interrupted 2-0 Vicryl and the skin was closed with running subcuticular 3-0 Vicryl. Steri-Strips were applied as was an Acticoat dressing. The patient was extubated without excessive straining and the abdominal binder applied. She tolerated the procedure well. Blood loss in aggregate was about 50 mL. COUNT: Sponge, needle, and instrument counts reported as correct x3. Popeye Womack MD JM/MODL /[id number] cc: MD Kishan Santiago MD Electronically Signed By: POPEYE WMOACK MD 06/21/21 1630 PATIENT NAME: MARJORIECAPRICE OPERATIVE REPORT DATE OF : 55 REPORT #: [id number] PHYSICIAN: POPEYE WOMACK MD PCP: NIELS OBREGON MD REPORT IS CONFIDENTIAL AND NOT TO BE RELEASED WITHOUT AUTHORIZATION [facility] [address] [place] [id number] Signed Copies: NIELS OBREGON MD, RUSSEL J MD ~ Electronically Signed By: POPEYE WOMACK MD 06/21/21 1630 PATIENT NAME: CAPRICE AMADOR OPERATIVE REPORT DATE OF : 55 REPORT #: [id number] PHYSICIAN: POPEYE WOMACK MD PCP: NIELS OBREGON MD REPORT IS CONFIDENTIAL AND NOT TO BE RELEASED WITHOUT AUTHORIZATION
--- NOTE | 2021-06-21 19:10 | NUR ---
TODAY GAVE PATIENT A BED BATH ALSO SHAMPOOED HER HAIR. PUT A NEW GOWN ON NEW UNDERWEAR. NEW SOCKS.
--- NOTE | 2021-06-23 22:00 | DS ---
[facility] [address] [place], [place] [address] Signed ADMISSION DATE: 06/19/2021 DISCHARGE DATE: 06/21/2021 REASON FOR ADMISSION: This 65-year-old white woman is a patient of Dr. Niels Obregon as well as Dr. Kishan Vogel and well known to me from the past. She has a history of colon cancer with resection x2, ultimately developed an incisional hernia. She has been on Keytruda for known stage IV colon cancer. Her incisional hernia does have incarceration of small bowel and she is admitted at this time for repair. PHYSICAL EXAMINATION: GENERAL: Obese white woman, who looks to be in no acute distress. NECK: Trachea is midline. CHEST: Clear. HEART: Regular without murmur. ABDOMEN: Obese and soft. There is a rather bulky hernia just lateral to the umbilicus and a fascial defect that is relatively large. There is also firm nodule in the area. HOSPITAL COURSE: The patient underwent operation on the day of admission, which included repair of complex abdominal hernia and abdominal wall reconstruction including a component separation technique bilaterally allowing for medialization of the linea alba. Mesh was implanted in the subfascial space as well. She was noted to have a rather sizable 4 cm smooth nodule of the peritoneum, which was excised independently and may represent persistent malignancy. Two drains were placed. Given the extent of operation, she was observed overnight and found to have a fair amount of discomfort as might be expected. The drains showed serosanguineous fluid drainage. She required additional hospitalization for pain control, wound care management, and so on. At the time of discharge, she is ambulating well, tolerating a regular diet (diabetic diet actually) and drains are well controlled. Her hematocrit at conclusion is 37. She will be discharged home with her abdominal binder and two bilateral subcutaneous drains anticipating the removal in 7-14 days. DISCHARGE MEDICATIONS: Included: 1. Percocet 7.5/325 one to two p.o. q.6 hours p.r.n. pain, #20. 2. Tylenol 1000 mg p.o. q.6 hours as needed for pain, #60. 3. Ibuprofen 600 mg p.o. q.6 hours as needed for pain, #60. She will resume her usual medication, which includes: 1. Gabapentin 300 mg 2-3 capsules at bedtime. Electronically Signed By: POPEYE WOMACK MD 06/23/21 6400 PATIENT NAME: CAPRICE AMADOR DISCHARGE SUMMARY DATE OF : 55 REPORT #: [id number] PHYSICIAN: POPEYE WOMACK MD PCP: NIELS OBREGON MD REPORT IS CONFIDENTIAL AND NOT TO BE RELEASED WITHOUT AUTHORIZATION [facility] [address] [place], [place] [address] Signed 2. Carvedilol 25 mg p.o. b.i.d. 3. Hydrochlorothiazide 12.5 mg p.o. as needed for edema. 4. Flonase allergy spray as needed for allergies. 5. Sertraline 25 mg p.o. daily. 6. Omeprazole 20 mg p.o. daily. 7. Lorazepam 1 mg as needed for anxiety up to three times daily. 8. Insulin NovoLog 70/30 25 units subcu b.i.d. 9. Metformin 750 mg p.o. daily. 10. Atorvastatin 80 mg p.o. daily. FOLLOW UP: She is return to see me as previously described in 7-14 days for drain removal. She is instructed to use the abdominal binder at all times, exceptions would include need for showering and lie supine in bed as necessary. She should lift no more than 20 pounds for the next 4 weeks. She should shower on a daily basis and allow water to contact the wounds and drain sites. DISCHARGE DIAGNOSES: 1. Complex incisional hernia, status post complex abdominal wall reconstruction including component separation technique with implantation of Prolene mesh (underlay technique and medialization of the linea alba). 2. Excision of peritoneal nodule (4 cm) suspicious for malignancy. 3. Morbid obesity. 4. Dyslipidemia. 5. Hypertension. 6. Diabetes mellitus. Popeye Womack MD /MODL /[id number] cc: Niels Obregon MD Copies: NIELS OBREGON MD Electronically Signed By: POPEYE WOMACK MD 06/23/21 6620 PATIENT NAME: CAPRICE AMADOR DISCHARGE SUMMARY DATE OF : 55 REPORT #: [id number] PHYSICIAN: POPEYE WOMACK MD PCP: NIELS OBREGON MD REPORT IS CONFIDENTIAL AND NOT TO BE RELEASED WITHOUT AUTHORIZATION [address] [address] Signed ~ Electronically Signed By: POPEYE WOMACK MD 06/23/21 2200 PATIENT NAME: CAPRICE AMADOR DISCHARGE SUMMARY DATE OF : 55 REPORT #: [id number] PHYSICIAN: POPEYE WOMACK MD PCP: NIELS OBREGON MD REPORT IS CONFIDENTIAL AND NOT TO BE RELEASED WITHOUT AUTHORIZATION
--- NOTE | 2021-06-24 10:46 | PATH ---
[facility] [address] [facility] [place], [place] [address] Signed SPECIMEN(S): A PERITONEAL MASS SPECIMEN SOURCE: A. PERITONEAL MASS ] CLINICAL HISTORY: Incarcerated incisional hernia. FINAL PATHOLOGIC DIAGNOSIS: Mass, peritoneum, excision: - Encapsulated focus of mucinous adenocarcinoma. - See Comment. COMMENT: There is a thick fibrotic capsule surrounding this mucinous adenocarcinoma. The tumor does not extend close to the inked peripheral margin. The prior history of an invasive adenocarcinoma, mucinous type, of the transverse colon and jejunum is noted ([id number]; July 17, 2019). The primary lesion appears to be emanating from the splenic flexure ([id number]; January 19, 2019). The morphologic features of the current specimen resemble those of the prior carcinoma. As part of [facility]' Quality Improvement Program, this case was reviewed by another member of our pathology staff. MAKENNAK:DF:honey:C1NR MICROSCOPIC EXAMINATION: Histologic sections of all submitted blocks are examined by light microscopy. These findings, together with the gross examination, support the pathologic diagnosis. GROSS DESCRIPTION: The specimen, labeled "RC, A," and designated on the requisition "peritoneal mass," is received in formalin and consists of one piece of yellow-graves, fatty to pink-graves membranous tissue (6.5 x 3.7 x 1.3 cm) and a portion of pink-graves membranous to firm tissue (8.5 x 5.0 x 2.8 cm). The larger portion of tissue is inked blue. The smaller portion is serially sectioned reveal a yellow-graves fatty to pink-graves soft cut surface. The larger piece is sectioned to reveal a yellow-graves fatty to pink-graves soft cut surface with a well-circumscribed, graves PATIENT NAME: CAPRICE AMADOR PATHOLOGY DATE OF : 55 REPORT #: [id number] PHYSICIAN: JERSEY PATHOLOGY PCP: NIELS OBREGON MD REPORT IS CONFIDENTIAL AND NOT TO BE RELEASED WITHOUT AUTHORIZATION [facility] [address] [place], [place] [address] Signed nodule (4.3 x 2.2 x 2.2 cm) with a white-graves cystic to gelatinous cut surface. Rn Angiography sections are submitted as follows: (A1) smaller portion of tissue (A2-A5) larger portion with nodule AC (under the direct supervision of a pathologist) The Gross Description was prepared using a voice recognition system. The report was reviewed for accuracy; however, sound-alike word errors, addition and/or deletions may occur. If there is any question about this report, please contact Client Services. PERFORMING LABORATORY: The technical component was performed by [facility], [address] [place] [id number] (Celery Packer: Harleen Jeffers MD; CLIA# [id number]). The professional interpretation was performed by [facility], [address] [place] [address]. Diagnostician: Samuel Venegas MD Pathologist Electronically Signed 06/24/2021 Copies: ~ PATIENT NAME: CAPRICE AMADOR PATHOLOGY DATE OF : 55 REPORT #: [id number] PHYSICIAN: JERSEY MCQUEEN PCP: NIELS OBREGON MD REPORT IS CONFIDENTIAL AND NOT TO BE RELEASED WITHOUT AUTHORIZATION
== END 2021-06-21 16:10 | disposition home or self-care (01) ==
LOC: DS 07:00 → MS 11:45
PROVIDERS: ADMIT Surgery; ATTEND Surgery
PROC: 0DBW0ZZ Excision of Peritoneum, Open Approach (ICD-10-PCS; 2021-06-19)
PROC: 0WUF0JZ Supplement Abdominal Wall with Synthetic Substitute, Open Approach (ICD-10-PCS; principal; 2021-06-19 08:30)
DX: K43.0 Incisional hernia with obstruction, without gangrene (principal); C48.2 Malignant neoplasm of peritoneum, unspecified; E66.01 Morbid (severe) obesity due to excess calories; E78.5 Hyperlipidemia, unspecified; I10 Essential (primary) hypertension; E11.9 Type 2 diabetes mellitus without complications; I25.2 Old myocardial infarction; Z85.038 Personal history of other malignant neoplasm of large intestine; Z79.4 Long term (current) use of insulin; Z88.0 Allergy status to penicillin; Z88.8 Allergy status to other drugs, medicaments and biological substances; Z90.49 Acquired absence of other specified parts of digestive tract; Z86.59 Personal history of other mental and behavioral disorders; Z68.35 Body mass index [BMI] 35.0-35.9, adult
CPT/HCPCS: 36415; 80053; 85025; 96372; 96374; 96376; A9270; C1781; G0378; J1100; J1644; J1815; J1885; J2001; J2250; J2270; J2405; J2550; J2704; J7121

== ENCOUNTER 2021-07-18 18:04 | Inpatient (IN) | payer MEDICARE, OTHER ==
[~2021-07-18] VITALS: Ht 162.6 cm; Wt 93.7 kg
[~2021-07-18 18:04] MED LIST changes: +ACETAMINOPHEN500 MG PO; +ATORVASTATIN CA80 MG PO; +LORAZEPAM1 MG PO; +METFORMIN HCL750 MG PO
[2021-07-18] MEDS ORDERED: METRONIDAZOLE250 MG PO (19:07)
[2021-07-18] MEDS ORDERED: CIPRO500 MG PO (19:08)
[2021-07-19] MEDS ORDERED: HYDROCODON-ACE1 EA10 PO (11:08)
--- NOTE | 2021-07-22 16:38 | PATH ---
[facility] [address] [place], [place] [address] Signed SPECIMEN(S): A ABDOMEN, PRODUCTS OF DEBRIDEMENT SPECIMEN SOURCE: A. ABDOMEN, PRODUCTS OF DEBRIDEMENT CLINICAL HISTORY: Soft tissue abscess with cellulitis. Abdominal wall infection. FINAL PATHOLOGIC DIAGNOSIS: Products of debridement, abdomen: - Fragments of partially viable fibroadipose tissue with fat necrosis and scattered acute and chronic inflammation. NAL:cml:C2NR MICROSCOPIC EXAMINATION: Histologic sections of all submitted blocks are examined by light microscopy. These findings, together with the gross examination, support the pathologic diagnosis. GROSS DESCRIPTION: The specimen, labeled "RC," and designated in the 1 requisition "abdomen, products of debridement," is received in formalin and consists of multiple fragments of yellow-graves to hemorrhagic soft tissue (2.0 x 7.0 x 2.5 cm in aggregate). The tissue is sectioned to reveal yellow to brown-graves cut surfaces. Choral Director sections are submitted in cassettes (A1-A2). AC (under the direct supervision of a pathologist) The Gross Description was prepared using a voice recognition system. The report was reviewed for accuracy; however, sound-alike word errors, addition and/or deletions may occur. If there is any question about this report, please contact Client Services. PERFORMING LABORATORY: The technical component was performed by [facility], [address] [place] [id number] (CLIA# [id number]). [facility], [address] [address] (CLIA# [id number]). Diagnostician: Shobha Roe MD Pathologist PATIENT NAME: CAPRICE AMADOR PATHOLOGY DATE OF : 55 REPORT #: [id number] PHYSICIAN: JONATHANYTE PATHOLOGY PCP: NIELS OBREGON MD REPORT IS CONFIDENTIAL AND NOT TO BE RELEASED WITHOUT AUTHORIZATION [facility] [address] [place] [phone] Signed Electronically Signed 07/22/2021 Copies: ~ PATIENT NAME: CAPRICE AMADOR PATHOLOGY DATE OF : 55 REPORT #: [id number] PHYSICIAN: JERSEY PATHOLOGY PCP: NIELS OBREGON MD REPORT IS CONFIDENTIAL AND NOT TO BE RELEASED WITHOUT AUTHORIZATION
--- NOTE | 2021-07-22 16:48 | PATH ---
[facility] [address] [place], [place] [address] Signed SPECIMEN(S): A ABDOMEN PRODUCTS OF DEBRIDEMENT SPECIMEN SOURCE: A. ABDOMEN PRODUCTS OF DEBRIDEMENT CLINICAL HISTORY: Wound vac change, abdomen. Abdominal wall infection. FINAL PATHOLOGIC DIAGNOSIS: Products of debridement, abdomen: - Skin with deep dermal and subcutaneous tissue abscess formation and fat necrosis. NAL:cml:C2NR MICROSCOPIC EXAMINATION: Histologic sections of all submitted blocks are examined by light microscopy. These findings, together with the gross examination, support the pathologic diagnosis. GROSS DESCRIPTION: The specimen, labeled "RC, A," and designated on the requisition "products of debridement, abdomen," is received in formalin and consists of a portion of pale to brown-graves fatty tissue and pink-graves skin (13.0 x 12.4 x 4.5 cm in aggregate). The tissue is sectioned to reveal brown-graves to hemorrhagic cut surfaces. Hyperbaric Technologist sections are submitted in cassettes (A1-A2). AC (under the direct supervision of a pathologist) The Gross Description was prepared using a voice recognition system. The report was reviewed for accuracy; however, sound-alike word errors, addition and/or deletions may occur. If there is any question about this report, please contact Client Services. PERFORMING LABORATORY: The technical component was performed by [facility], [address] [place] [id number] (CLIA# [id number]). [facility] [address] [address] (CLIA# [id number]). Diagnostician: Shobha Roe MD Pathologist PATIENT NAME: CAPRICE AMADOR PATHOLOGY DATE OF : 55 REPORT #: [id number] PHYSICIAN: [facility] PCP: NIELS OBREGON MD REPORT IS CONFIDENTIAL AND NOT TO BE RELEASED WITHOUT AUTHORIZATION [facility] [address] [place] [address] Signed Electronically Signed 07/22/2021 Copies: ~ PATIENT NAME: CAPRICE AMADOR PATHOLOGY DATE OF : 55 REPORT #: [id number] PHYSICIAN: [facility] PCP: NIELS OBREGON MD REPORT IS CONFIDENTIAL AND NOT TO BE RELEASED WITHOUT AUTHORIZATION
[2021-07-23] MEDS ORDERED: CEFPODOXIME PR200 MG PO (11:13)
[2021-07-23] MEDS ORDERED: PERCOCET 10-321 EACH PO (11:19)
[2021-07-23] MEDS ORDERED: VENTOLIN HFA18 GM INH (11:20)
--- NOTE | 2021-07-29 12:26 | HP ---
[facility] [address] [place], [place] [address] Signed ADMISSION DATE: 07/18/2021 REASON FOR ADMISSION: Probable soft tissue abscess and cellulitis abdominal wall, history of recent complex incisional hernia repair. HISTORY OF PRESENT ILLNESS: This 65-year-old white woman is well known to me from the past. 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 Repair consisted of resection of the soft tissue mass, but also implantation of Prolene mesh in an underlay technique with component separation of the fascia allowing for medialization of the fascia. Two drains were placed. She was seen in my office a week or so after operation where both drains had ceased much output and they were removed. She was seen in my office this week with some separation of the midline soft tissue and obvious infection and Gram stain and cultures were obtained and breakdown of the infectious process. Plain gauze was applied to the area and she was prescribed Cipro and Flagyl antibiotic. She presented to the emergency room this evening, and was evaluated by Dr. Golden. The area in the midline appears to be doing well, however, laterally to the left there is an erythematous area with firmness and on the right side no erythema, but definite cellulitic changes. She is admitted for further evaluation and care. PAST MEDICAL HISTORY: Notable for obesity as well as stage IV colon cancer. She has ongoing insulin-dependent diabetes mellitus and dyslipidemia. She has had coronary stenting approximately 16 years ago. SURGICAL HISTORY: Includes left colectomy with subsequent transverse colectomy for concurrent (synchronous) colon cancer. She has undergone cervical fusion and hysterectomy. ALLERGIES: Include penicillin. CURRENT MEDICATIONS: Include: 1. Tylenol. 2. Sertraline. Electronically Signed By: POPEYE WOMACK MD 07/29/21 1226 PATIENT NAME: CAPRICE AMADOR HISTORY AND PHYSICAL DATE OF : 55 REPORT #: [id number] PHYSICIAN: POPEYE WOMACK MD PCP: NIELS OBREGON MD REPORT IS CONFIDENTIAL AND NOT TO BE RELEASED WITHOUT AUTHORIZATION [facility] [address] [place], [place] [address] Signed 3. Ibuprofen. 4. Oxycodone. 5. Tylenol. 6. Cipro. 7. Flagyl. REVIEW OF SYSTEMS: She denies any fever or chills. She has had no shortness of breath or chest pain. Her pain is mostly on the left side in the left mid abdomen approximately 10 cm from the midline incision. PHYSICAL EXAMINATION: GENERAL: Pleasant white woman who does not look systemically toxic. She is accompanied by her daughter. VITAL SIGNS: Show a temperature of 98.7, pulse of 87, respirations 20, blood pressure 164/65, pulse oximetry 97%. NECK: Normal. CHEST: Clear. HEART: Regular without murmur. ABDOMEN: Obese, but soft. There is a midline incision which is intact except in the inferior portion where separation of skin is noted. Some gauze is disimpacted from the area. That area which was previously interrogated and drainage packed appears to be without sign of purulent collection. Laterally about 10 cm from the midline, is an erythematous area that is tender. There are cellulitic changes and tenderness in the mirror image of the right side, but without erythema and without fluctuance. LABORATORY STUDIES: Show a white count of 13.3, hematocrit of 27.9, platelets of 527,000. Chem profile is essentially normal. Creatinine is 0.91. Liver enzymes are normal. Albumin 2.1. Serology shows pending coronavirus. ASSESSMENT: She may have an abscess in the area in question. There is recall that two drains were placed, one on the right and one on the left and they were removed when minimal output was noted. She is at increased risk of subcutaneous wound infection on the basis of her obesity and underlying relative immunosuppression with her diabetes. We will initiate broad-spectrum antibiotics and warm compresses to the area and likely provide for incision and drainage within the next 12 to 24 hours depending on clinical findings. Given her diabetes and so forth, I believe intravenous antibiotics are preferable to oral antibiotics which have apparently failed in arresting any progression of infection at this time. Electronically Signed By: POPEYE WOMACK MD 07/29/21 1226 PATIENT NAME: CAPRICE AMADOR HISTORY AND PHYSICAL DATE OF : 55 REPORT #: [id number] PHYSICIAN: POPEYE WOMACK MD PCP: NIELS OBREGON MD REPORT IS CONFIDENTIAL AND NOT TO BE RELEASED WITHOUT AUTHORIZATION [facility] [address] [place] [address] Signed Popeye Womack MD JM/MODL /[id number] cc: MD Alma Rosa Santiago MD Copies: NIELS OBREGON MD, KELLY DEAN MD ~ Electronically Signed By: POPEYE WOMACK MD 07/29/21 1226 PATIENT NAME: CAPRICE AMADOR HISTORY AND PHYSICAL DATE OF : 55 REPORT #: [id number] PHYSICIAN: POPEYE WOMACK MD PCP: NIELS OBRGEON MD REPORT IS CONFIDENTIAL AND NOT TO BE RELEASED WITHOUT AUTHORIZATION
--- NOTE | 2021-07-29 12:26 | OR ---
[facility] [address] [place], [place] [address] Signed DATE OF OPERATION: 07/19/2021 SURGEON: Popeye Womack MD PREOPERATIVE DIAGNOSES: 1. Soft tissue infection/abscess, left lower abdomen with cellulitic changes of right abdominal wall. 2. Recent abdominal wall reconstruction with implantation of Prolene mesh (underlay technique and component separation for medialization of midline fascia). 3. Underlying diabetes mellitus and stage IV colon cancer. POSTOPERATIVE DIAGNOSES: 1. Soft tissue infection/abscess, left lower abdomen with cellulitic changes of right abdominal wall. 2. Recent abdominal wall reconstruction with implantation of Prolene mesh (underlay technique and component separation for medialization of midline fascia). 3. Underlying diabetes mellitus and stage IV colon cancer. 4. Abscess, left-sided abdominal wall with fat necrosis and right-sided cellulitis with cellulitic changes with fat necrosis. PROCEDURES: 1. Exam under anesthesia and drainage of left abdominal wall abscess, Gram stain and culture. 2. Extensive fat necrosis debridement of abdominal wall, left side and right side and midline. 3. Irrigation and lavage of abdomen with aricept solution (Hibiclens) solution. 4. Application of large negative pressure wound sponge (Tristan Nephew device, AKA wound VAC). ANESTHESIA: General endotracheal; Rohan Garcia CRNA INDICATIONS: This 65-year-old white woman was admitted to the hospital by me after presenting to the emergency room yesterday. On June 19, 2021, she underwent complex abdominal wall reconstruction of an incisional hernia in the region of the umbilicus. She was found to have a typical abdominal wall hernia as well as a peritoneal mass approximately 4 cm in size associated with the peritoneum which proved to be residual adenocarcinoma. The patient has a known stage IV colon carcinoma, having undergone two resections of the left colon and maintenance biologic therapy with Keytruda under the direction of Electronically Signed By: POPEYE WOMACK MD 07/29/21 1226 PATIENT NAME: CAPRICE AMADOR OPERATIVE REPORT DATE OF : 55 REPORT #: [id number] PHYSICIAN: POPEYE WOMACK MD PCP: NIELS OBREGON MD REPORT IS CONFIDENTIAL AND NOT TO BE RELEASED WITHOUT AUTHORIZATION [facility] [address] [place], [place] [address] Signed David. She underwent abdominal wall reconstruction, which included implantation of Prolene mesh in a subfascial position as well as medialization of linea alba by lateral components separation technique. She was seen in the office within a week of operation and both drains had ceased much output in the were removed. She was seen a few days ago in the office with separation in the midline in the region of the umbilicus and obvious infection. Gram stain and cultures were obtained. Empiric treatment with Cipro and Flagyl antibiotic was initiated. She presents to the emergency room yesterday and evaluated by Dr. Golden showing the midline to be generally doing well, however, lateral and inferiorly to the left, there was an area of erythematous change and fluctuation highly consistent with abscess. On the right side, there is a dense plaque-like abdominal finding about the size of my hand with cellulitic changes, but without erythema. She has been admitted and placed on broad-spectrum antibiotic meropenem anticipating drainage as appropriate. She is now to undergo drainage of the left-sided abscess site and possible drainage on the right side if impending abscess is noted. The separation of the skin at the umbilicus will be debrided as well. The risks of bleeding, infection, need for open procedures that are larger and so forth were all reviewed in detail. She understands and wished to proceed. FINDINGS: Indeed there was well-formed abscess in the left side. Gram stain and cultures were obtained. Stat Gram stain showed gram positive cocci in clusters. Necrotic fat was noted associated with this. The area did not directly connect initially to the midline fascia. The fascia in the surrounding area was consistent with fat necrosis. The underlying dense fascial layer was intact and certainly no exposure of mesh or anything of that sort was noted. To the right of the midline incision was cellulitic change, although no well-formed abscess clearly infected and with necrotic fat as well. Initially, I had intended to keep the incision separate and provide for drainage, but mindful of her underlying diabetes, advanced colon cancer and issues related to her therapy including Keytruda, the two sites were made to be in continuity with a single large transverse incision and extensive abdominal wall debridement of necrotic fat undertaken. This allowed for complete debridement to viable tissue as well as application of wound VAC device. DESCRIPTION OF PROCEDURE: The patient was brought to the operating room, given a general endotracheal anesthetic. Preoperative antibiotic meropenem had been given. Sequential compression device stockings were used. The gauze was noted in the wound at the umbilicus approximately 3 cm in diameter was removed. Within the depths of it was some slightly necrotic appearing tissue, but no sign of purulence. Abdominal wall was prepared with a Betadine based solution and draped sterilely. A transverse incision was made in the Electronically Signed By: POPEYE WOMACK MD 07/29/21 1226 PATIENT NAME: CAPRICE AMADOR OPERATIVE REPORT DATE OF : 55 REPORT #: [id number] PHYSICIAN: POPEYE WOMACK MD PCP: NIELS OBREGON MD REPORT IS CONFIDENTIAL AND NOT TO BE RELEASED WITHOUT AUTHORIZATION [facility] [address] [place], [place] [address] Signed erythematous fluctuant area to the left of midline which was approximately 6-8 cm away. This allowed for egress of copious amounts of purulent material. Fluid was obtained for gram stain and culture. The stat Gram stain was promptly reported as gram-positive cocci in clusters. Insinuation of a tonsil clamp into the incised area showed there to be a cavity that extended somewhat inferiorly and laterally. Copious irrigation was undertaken after removal of the purulence. Digital examination showed necrotic fatty tissue. This was extracted with a ring forcep. Further dissection was undertaken after irrigation with normal saline. The area was packed. A small transverse incision was made approximately symmetrically on the right side of the abdomen where cellulitic changes were noted. This did not deliver purulent fluid per se, but was quite inflamed and showed signs of necrotic fat as well. Dissection was taken medially, laterally and superiorly with a tonsil clamp, showing similar findings. This incision was extended a bit allowed for insinuation of the index finger and showing necrotic fat. This was debrided with a ring clamp. Irrigation was undertaken as well. Dissection was carried down to the deep dense fascial wall. It is recalled that the fascia overlays implanted Prolene mesh. There was no evidence of mesh exposure anywhere. Her underlying diabetes and other risk factors for infection and notably this significant soft tissue infection jeopardizing not only the repair, but her overall health it was deemed more appropriate to simply transect the skin which was completely viable from right side to the left side and this was accomplished with electrocautery leaving the wound wide open. Necrotic fat was noted in a hodgepodge configuration throughout this area. This was sharply debrided as well as debrided with banjo curette. Some cephalad right-sided space was debrided similarly. Necrotic fat was excised on the left side as well. Irrigation was undertaken and once all necrotic fat removed, examination of the deepest fascial layer showed it to be completely intact and apparently viable. Irrigation was undertaken with saline and subsequently with aricept (Hibiclens) dilute solution. A large wound VAC was cut into two layers and laid into the depths of the wound and adhesive applied and wound VAC applied at 120 mmHg suction. A good seal was noted. The patient was ultimately extubated and transferred to recovery room in good condition having suffered no complication. Sponge, needle, and instrument counts were reported as correct x3. MD CLEMENT Landon/MODL /[id number] Electronically Signed By: POPEYE WOMACK MD 07/29/21 1226 PATIENT NAME: CAPRICE AMADOR OPERATIVE REPORT DATE OF : 55 REPORT #: [id number] PHYSICIAN: POPEYE WOMACK MD PCP: NIELS OBREGON MD REPORT IS CONFIDENTIAL AND NOT TO BE RELEASED WITHOUT AUTHORIZATION [address] [address] Signed cc: Niels [place] MD Copies: NIELS OBREGON MD ~ Electronically Signed By: POPEYE WOMACK MD 07/29/21 1226 PATIENT NAME: CAPRICE AMADOR OPERATIVE REPORT DATE OF : 55 REPORT #: [id number] PHYSICIAN: POPEYE WOMACK MD PCP: NIELS OBREGON MD REPORT IS CONFIDENTIAL AND NOT TO BE RELEASED WITHOUT AUTHORIZATION
--- NOTE | 2021-07-29 12:26 | OR ---
[facility] [address] [place], [place] [address] Signed DATE OF OPERATION: 07/21/2021 SURGEON: Popeye Womack MD PREOPERATIVE DIAGNOSES: 1. Recent debridement of abdominal wall; infected abdominal wall following abdominal wall reconstruction. 2. Streptococcus galactae underlying pathogen. 3. Multiple medical comorbidities including diabetes and stage IV colon cancer. POSTOPERATIVE DIAGNOSES: 1. Recent debridement of abdominal wall; infected abdominal wall following abdominal wall reconstruction. 2. Streptococcus galactinae underlying pathogen. 3. Multiple medical comorbidities including diabetes and stage IV colon cancer. 4. Additional component of fat necrosis/ischemic change, left lateral and central abdominal wall. PROCEDURES: 1. Exam under anesthesia. 2. Abdominal wall debridement of subcutaneous tissue and skin (extensive). 3. Wound lavage including aricept Hibiclens dilute solution. 4. Application of wound VAC. ANESTHESIA: General endotracheal; Sara Harvey CRNA and Devang Carias CRNA INDICATIONS: This is a 65-year-old white woman is admitted on 07/18/2021 with a wound infection in the central portion of a midline incision following complex abdominal wall reconstruction, following incarcerated hernia repair two weeks previously. She has underlying issues of diabetes and stage IV colon cancer. The infection was evaluated and debridement of necrotic fatty tissue undertaken to the right and left of the midline incision, but not superiorly and inferiorly to any great extent. Complete debridement was undertaken. A wound VAC applied. She is markedly improved since this and cultures at time of original operation showed Streptococcal pathogen. She has a normal white count and is improving quite nicely; however, in the lateral Electronically Signed By: POPEYE WOMACK MD 07/29/21 1226 PATIENT NAME: CAPRICE AMADOR OPERATIVE REPORT DATE OF : 55 REPORT #: [id number] PHYSICIAN: POPEYE WOMACK MD PCP: NIELS OBREGON MD REPORT IS CONFIDENTIAL AND NOT TO BE RELEASED WITHOUT AUTHORIZATION [facility] [address] [place], [place] [address] Signed aspect on the left there is an area of firmness outside the level of the original excision site. There was no evidence of actual cellulitis, but firmness and exquisite tenderness. She is due for a wound VAC dressing change and I have recommend exam under anesthesia, evaluation of the wound for assessment of its healing and additional debridement as necessary. She understands as does her and family the risks of bleeding, infection, and so forth and wished to proceed. FINDINGS: Impressively much of the wound was granulating very nicely. In the lateral aspect where suspicion was maintained, there was granulation on the surface, but laterally density of the tissue mandated additional excision, which showed rather typical of diabetic fat with fibrosis and generally unhealthy soft tissue. This is similarly true in the inferior central aspect of the breast and superiorly as well. Debridement of this compromised fat was undertaken sharply curettage of all surfaces undertaken and viable bleeding tissue left. Irrigation was undertaken with aricept solution and wound VAC device reapplied. DESCRIPTION OF PROCEDURE: The patient was brought to the operating room, given a general endotracheal anesthetic. The patient has been on antibiotic vancomycin and Levaquin. The wound VAC device was removed by me including the sponge layers showing impressive granulation and much of the wound in fact essentially all other. Laterally over the firm and dense soft tissue that had been previously quite tender was examined, and in this area, there was some undermining from previous debridement. The abdominal wall and wound were prepared with a Betadine based solution and draped sterilely. Suctioning laterally on the left side revealed the shelf to have some areas of probably necrotic fatty tissue and ischemic changes as well that had not been debrided previously. Wide excision was undertaken with a 20 blade, excising the fat back to vigorously bleeding normal soft tissue. Similarly, this was undertaken in the central superior aspect and the inferior aspect as well. Curettage with a Storemates curette device was undertaken throughout the wound and any area that was slightly compromised from an ischemic standpoint was debrided. It is recalled that the mesh that underlies the fascia remains in situ and out of reach of the current process. Irrigation was undertaken with saline, and ultimately Hibiclens dilute solution ( aricept). A wound VAC sponge large size was cut to configuration and secured in the standard way allowing for good seal. Blood loss was about 100 mL or less. Sponge, needle, and instrument counts reported as correct x3. Popeye Womack MD Electronically Signed By: POPEYE WOMACK MD 07/29/21 1226 PATIENT NAME: CAPRICE AMADOR OPERATIVE REPORT DATE OF : 55 REPORT #: [id number] PHYSICIAN: POPEYE WOMACK MD PCP: NIELS OBREGON MD REPORT IS CONFIDENTIAL AND NOT TO BE RELEASED WITHOUT AUTHORIZATION [address] [address] Signed /YESICAL /[id number] cc: MD Niels Mckeon MD Copies: NIKKY BARRIOS MD, ROBERT C MD ~ Electronically Signed By: POPEYE WOMACK MD 07/29/21 1226 PATIENT NAME: CAPRICE AMADOR OPERATIVE REPORT DATE OF : 55 REPORT #: [id number] PHYSICIAN: POPEYE WOMACK MD PCP: NIELS OBREGON MD REPORT IS CONFIDENTIAL AND NOT TO BE RELEASED WITHOUT AUTHORIZATION
[2021-08-13] MEDS ORDERED: IBUPROFEN600 MG PO (10:36)
[2021-08-13] MEDS ORDERED: OXYCODON-ACETA1 EAC2 PO (10:37)
== END 2021-07-23 13:47 | disposition home or self-care (01) | DRG 858 ==
LOC: ED 18:04 → MS 20:18
PROVIDERS: ADMIT Surgery; ATTEND Surgery
PROC: 0JB80ZZ Excision of Abdomen Subcutaneous Tissue and Fascia, Open Approach (ICD-10-PCS; 2021-07-19)
PROC: 0HB7XZZ Excision of Abdomen Skin, External Approach (ICD-10-PCS; principal; 2021-07-19 13:22)
DX: T81.40XA Infection following a procedure, unspecified, initial encounter (principal); E78.5 Hyperlipidemia, unspecified; E66.9 Obesity, unspecified; Z20.822 Contact with and (suspected) exposure to COVID-19; I10 Essential (primary) hypertension; E11.42 Type 2 diabetes mellitus with diabetic polyneuropathy; Z22.321 Carrier or suspected carrier of Methicillin susceptible Staphylococcus aureus; F39 Unspecified mood [affective] disorder; F41.8 Other specified anxiety disorders; B95.62 Methicillin resistant Staphylococcus aureus infection as the cause of diseases classified elsewhere; B95.1 Streptococcus, group B, as the cause of diseases classified elsewhere; Z85.038 Personal history of other malignant neoplasm of large intestine; Z92.21 Personal history of antineoplastic chemotherapy; Z98.890 Other specified postprocedural states; I25.2 Old myocardial infarction; Z95.1 Presence of aortocoronary bypass graft; Z90.710 Acquired absence of both cervix and uterus; Z79.899 Other long term (current) drug therapy; Z88.0 Allergy status to penicillin; Z79.84 Long term (current) use of oral hypoglycemic drugs; Z90.49 Acquired absence of other specified parts of digestive tract; Z79.4 Long term (current) use of insulin; Z98.1 Arthrodesis status; Z87.891 Personal history of nicotine dependence
CPT/HCPCS: 00800; 36415; 80048; 80053; 80202; 83036; 85025; 87070; 87075; 87186; 87205; 88304; 96374; 99284-25; A9270; J0131; J1170; J1644; J1815; J1885; J1956; J2001; J2185; J2270; J2550; J2704; J3370; J3475; J7030; J7050; J7060; J7121; U0003

== ENCOUNTER 2021-12-30 23:16 | Inpatient (IN) | payer MEDICARE, OTHER ==
[~2021-12-30] VITALS: Ht 165.1 cm; Wt 85.4 kg
[~2021-12-30 23:16] MED LIST changes: +CEFPODOXIME PR200 MG PO; +CIPRO500 MG PO; +METRONIDAZOLE250 MG PO; +PERCOCET 10-321 EACH PO; +VENTOLIN HFA18 GM INH
[2021-12-31] MEDS ORDERED: HYDROCODON-ACE1 EA10 PO (08:59)
--- NOTE | 2021-12-31 14:26 | EKG ---
[facility] [address] [facility] [place] [address] Signed Normal sinus rhythm Normal ECG When compared with ECG of 17-JUN-2021 14:36, No significant change was found Confirmed by Edwin Parra MD () on 12/31/2021 2:26:31 PM Electronically Signed By: EDWIN PARRA MD 12/31/21 1426 PATIENT NAME: CAPRICE AMADOR Electrocardiogram DATE OF : 55 PHYSICIAN: EDWIN PARRA MD REPORT #: [id number] REPORT IS CONFIDENTIAL AND NOT TO BE RELEASED WITHOUT AUTHORIZATION
--- NOTE | 2021-12-31 20:22 | EKG ---
[facility] [address] [facility] [place] [address] Signed Normal sinus rhythm Possible Inferior infarct , age undetermined Abnormal ECG When compared with ECG of 30-DEC-2021 23:42, (Unconfirmed) Borderline criteria for Inferior infarct are now present Inverted T waves have replaced nonspecific T wave abnormality in Inferior leads Confirmed by Edwin Parra MD () on 12/31/2021 8:22:29 PM Electronically Signed By: EDWIN PARRA MD 12/31/212021 PATIENT NAME: CAPRICE AMADOR Electrocardiogram DATE OF : 55 PHYSICIAN: EDWIN PARRA MD REPORT #: [id number] REPORT IS CONFIDENTIAL AND NOT TO BE RELEASED WITHOUT AUTHORIZATION
--- NOTE | 2022-01-01 09:10 | CONS ---
[facility] [address], [place] [address] Signed DATE OF CONSULTATION: 12/31/2021 CHIEF COMPLAINT: Nausea. HISTORY OF PRESENT ILLNESS: Caprice is a 66-year-old female, who has been dealing with colon cancer since 2018. It converted to stage IV colon cancer in July 2019. She has had multiple abdominal surgeries to include two colectomies involving the transverse colon in the proximal left colon and along with at least two enterotomies and reversal of the loop ileostomy. She has had a ventral hernia repair and at that time had a met removed that was 4 cm in diameter. She had metastatic lesion taken off her stomach in the midportion by Dr. Womack and had to be re-constructed, I suspect with a loop of small bowel. We are still trying to obtain that operative report. We were unable to find it on the computer today. She has a fairly large cystic lesion between the stomach and the tail of her pancreas that was about 4 cm. It is now almost 8 cm despite chemotherapy. She has a lesion lateral that about 3.5 cm and a much smaller 1.3 cm lesion. She had just met with her oncologist within the last couple of weeks. She wanted to continue on Keytruda. Unfortunately, she has developed intractable nausea. She said if she could vomit maybe she would feel better. She finally came to emergency room for evaluation. She said she was eating and drinking yesterday. Vital signs were not particularly concerning. Her white count was normal. Her CT scan showed an increase in this cystic lesion with significant fluid in her stomach. Therefore, an NG tube had been placed. She returned to bilious gastric fluid. Apparently, the hospitalist and Dr. Womack were contacted last night. Dr. Womack is out of town this morning and therefore, I was asked to come see this patient consultation. We spent significant time reviewing her previous records. Her daughter and are in the room as well. PAST MEDICAL HISTORY: 1. Type 2 diabetes. 2. DC. 3. Colon cancer. PAST SURGICAL HISTORY: Includes: 1. Cardiac stents x1. 2. The hysterectomy. 3. The colectomies x2 involving the transverse and left colon as well as at least two enterotomies. 4. A ventral hernia repair. 5. Cervical fusion. 6. Appendectomy. 7. Cholecystectomy. Electronically Signed By: ABDIAZIZ FOX MD 01/01/22 0910 PATIENT NAME: CAPRICE AMADOR CONSULTATION DATE OF : 55 REPORT #: [id number] PHYSICIAN: ABDIAZIZ FOX MD PCP: NIKKY VOGEL MD REPORT IS CONFIDENTIAL AND NOT TO BE RELEASED WITHOUT AUTHORIZATION [address] [address] Signed 8. Resection of a 4 cm metastatic lesion during her ventral hernia repair. SOCIAL HISTORY: She and her lives in [place] and they both drive. Her 's name is Jeri, and her daughter is Dorcas at [phone]. There are four children in total. Dr. Nikky Vogel is her primary care provider. They prefer the [facility]. Apparently, she is a full code. She quit smoking previously. FAMILY HISTORY: None. REVIEW OF SYSTEMS: She had 10 systems reviewed and nothing new to add other than the worsening metastatic disease and now the nausea. ALLERGIES: Penicillin. MEDICATIONS: 1. Marijuana. 2. Sertraline. 3. Tylenol. 4. Gabapentin. 5. Carvedilol. 6. Flonase. 7. Lorazepam. 8. NovoLog. 9. Metformin. 10. Atorvastatin. 11. Keytruda. PHYSICAL EXAMINATION: VITAL SIGNS: Blood pressure is 188/98, heart rate is 87, respiratory rate 20, temperature 97.6. She is 96% on 2 L. She is 5 feet 5 inches at 85 kg. GENERAL: Caprice is a 66-year-old female, lying supine in her hospital bed. She is clearly tired. and daughter in the room along with her two nurses. ABDOMEN: Soft, flat, nondistended. Interestingly, we cannot palpate this specific mass. There are no hernias. I can feel. LABORATORY DATA: Her white blood count is 8.4, hemoglobin 12, platelets 305. Electrolytes unremarkable. COVID negative, lactic acid 1.8, alkaline phosphatase 158, AST and ALT negative, albumin 3.9, and lipase 77. Chest x-ray is unremarkable with respect to her chronic nodules in the NG tubes in the fundus. CT scan of the abdomen pelvis showed this increase in the Electronically Signed By: ABDIAZIZ FOX MD 01/01/22 0910 PATIENT NAME: CAPRICE AMADOR CONSULTATION DATE OF : 55 REPORT #: [id number] PHYSICIAN: ABDIAZIZ FOX MD PCP: NIKKY VOGEL MD REPORT IS CONFIDENTIAL AND NOT TO BE RELEASED WITHOUT AUTHORIZATION [address] [address] Signed cystic lesion, now measuring 7.8 x 7.7 cm with a 3.5 cm lesion lateral that and then a smaller 1.3 cm lesion. No obvious small-bowel obstruction. However, one can see this rather significant lesion protruding into the stomach. ASSESSMENT/PLAN: Caprice is a 66-year-old female, who presents as above. Currently, she is being treated conservatively. I have discussed this with our hospitalist. I have discussed this with the patient and the family. She is being treated conservatively currently. I will check again tomorrow morning. We are going to track down the operative report from July 2019 with respect to the stomach reconstruction. I suspect some of this tumor is causing some issues obviously that what is most likely is a gastrojejunostomy. Whether or not she could tolerate any additional surgery was becoming doubtful. She is certainly at stage IV colon cancer. Dr. Pruitt will continue to try to make efforts to contact the oncologist. I discussed this with the patient, her , and the daughter, also with Dr. Pruitt. Abdiaziz Fox MD ALB/MODL /[id number] cc: MD Fabiano Landon MD Andrew L Bower, MD Copies: POPEYE WOMACK MD, ROBERT C MD BOWER, ANDREW L MD ~ Electronically Signed By: ABDIAZIZ FOX MD 01/01/22 0910 PATIENT NAME: CAPRICE AMADOR CONSULTATION DATE OF : 55 REPORT #: [id number] PHYSICIAN: ABDIAZIZ FOX MD PCP: NIKKY VOGEL MD REPORT IS CONFIDENTIAL AND NOT TO BE RELEASED WITHOUT AUTHORIZATION
--- NOTE | 2022-01-02 20:50 | EKG ---
[facility] [address] [facility] [place] [address] Signed Normal sinus rhythm Right atrial enlargement Inferior infarct , age undetermined Abnormal ECG Confirmed by Edwin Parra MD () on 01/02/2022 8:50:38 PM Electronically Signed By: EDWIN PARRA MD 01/02/222049 PATIENT NAME: CAPRICE AMADOR Electrocardiogram DATE OF : 55 PHYSICIAN: EDWIN PARRA MD REPORT #: [id number] REPORT IS CONFIDENTIAL AND NOT TO BE RELEASED WITHOUT AUTHORIZATION
[2022-01-03] MEDS ORDERED: OXYCODONE HCL5 MG PO (09:27)
== END 2022-01-03 11:40 | disposition home or self-care (01) | DRG 844 ==
LOC: ED 23:16 → MS 23:18
PROVIDERS: ADMIT Family Medicine; ATTEND Family Medicine
DX: C79.89 Secondary malignant neoplasm of other specified sites (principal); C18.9 Malignant neoplasm of colon, unspecified; I16.0 Hypertensive urgency; R77.8 Other specified abnormalities of plasma proteins; Z20.822 Contact with and (suspected) exposure to COVID-19; E11.9 Type 2 diabetes mellitus without complications; I25.2 Old myocardial infarction; E87.6 Hypokalemia; Z95.5 Presence of coronary angioplasty implant and graft; Z90.710 Acquired absence of both cervix and uterus; Z98.1 Arthrodesis status; Z87.891 Personal history of nicotine dependence; Z79.4 Long term (current) use of insulin; Z79.84 Long term (current) use of oral hypoglycemic drugs; Z88.0 Allergy status to penicillin; Z79.899 Other long term (current) drug therapy
CPT/HCPCS: 36415; 71045; 74177; 80053; 81001; 83605; 83690; 83735; 84484; 85025; 87502; 93005; 93010; 94762; 96361; 96372; 96375; 96376; 99285-25; G0378; J0360; J0780; J1170; J1650; J1790; J1815; J1885; J2405; J2550; J3480; J7030; J7060; Q9967; U0003

== ENCOUNTER 2022-04-08 15:04 | Emergency (ER) | payer MEDICARE, OTHER ==
[~2022-04-08] VITALS: Ht 160 cm; Wt 83.5 kg
[2022-04-08] MEDS ORDERED: HYDROCODON-ACE1 EA10 PO (16:20)
[2022-04-08] MEDS ORDERED: PROMETHAZINE HC25 M1 PO (19:21)
[2022-04-08] MEDS ORDERED: ONDANSETRON ODT8 MG PO (19:21)
== END 2022-04-08 20:50 | disposition home or self-care (01) ==
LOC: ED 15:04
DX: C18.9 Malignant neoplasm of colon, unspecified (principal); R10.9 Unspecified abdominal pain; R11.0 Nausea; G89.29 Other chronic pain; I25.2 Old myocardial infarction; I10 Essential (primary) hypertension; E11.9 Type 2 diabetes mellitus without complications; Z87.891 Personal history of nicotine dependence; Z88.0 Allergy status to penicillin; Z79.899 Other long term (current) drug therapy; Z79.4 Long term (current) use of insulin
CPT/HCPCS: 36415; 80053; 81003; 83690; 83735; 85025; 96374; 96375; 96376; 99284-25; A9270; J1170; J2405; J2550

== ENCOUNTER 2022-05-27 08:45 | Inpatient (IN) | payer MEDICARE, OTHER ==
[~2022-05-27] VITALS: Ht 160 cm; Wt 75.0 kg
[~2022-05-27 08:45] MED LIST changes: +DIPHENOXYLATE-1 EACH PO; +IBU600 MG PO; +LIPITOR80 MG GT; +NOVOLOG MI100 UNIT/1 SUB-Q; +OMEPRAZOLE20 MG PO; +ONDANSETRON ODT8 MG PO; +PRAVASTATIN SOD40 MG PO; +PROMETHAZINE HC25 M1 PO
--- NOTE | 2022-05-27 11:24 | NUR ---
LE 1120 PATIENT UPDATED ON WAIT. PATIENT UNDERSTANDABLE. CALL LIGHT WITHIN REACH NO FUTHER NEEDS. NO QUESTIONS AT THIS TIME. AT BEDSIDE.
--- NOTE | 2022-05-27 13:26 | NUR ---
PT ALERT, ORIENTED AND VISITING WITH HER TRA AT BS. PT DEALING VERY WELL WITH HAVING TO WAIT LONGER FOR SURGERY DUE TO EMERGENCY NEEDS. PRAYED WITH BOTH, GAVE BLESSING AND WILL FOLLOW
--- NOTE | 2022-05-27 18:42 | NUR ---
PT BROUGHT TO ROOM VIA STRETCHER BY GERALDINE PEREZ, MECHANICAL TECHNICIANRODGER ADLER, AND COMMERCIAL DRONE SOFTWARE DEVELOPERRODGER EVANS. PT IN RECOVERY FROM LAPORATOMY WITH GASTROFISTULA REPAIR. PT HR 69, BP 135/86 (94), RR 26, TEMPERATURE 98.7, AND O2 100% ON 6L NONREBEATHER. PT HAS ORAL AIRWAY IN PLACE AND NGT IN LEFT NARE WITH LOW INTERMITTENT SUCTION. PT HAS ACTECOKE DRESSING MID ABD WITH SLIGHT DRAINAGE NOTED AND GIA ON LEFT SIDE OF ABD. PER MECHANICAL TECHNICIAN, PT HAS TASEAL HEMOLYTIC SPRAY OVER SURGICAL SITE TO REDUCE BLEEDING. PT HAS ACCESSED PORT ON RIGHT SIDE OF CHEST THAT HAS LR INFUSING. PER HEDIS MANAGER, PT HAS RECEIVED 3400ML OF LR, 450MCG FENTANYL WITH 100MCG OF IT PROVIDED JUST PRIOR TO HAVING BILATERAL INTERFASCIAL INTERPLANE BLOCKS PLACED. PT HAS RECEIVED 100MG KETAMINE, 1GM IV TYLENOL, 1GM OF MAGNESIUM, AND 4GM OF ANCEPH WITH LAST DOSE AT 1540. PT OUTPUT WAS 1,000ML. PT HAS ECKERT CATHETER IN PLACE. DURING SURGERY PT HAD A GENERAL ENDOTRACHEAL TUBE WHICH WAS REMOVED PRIOR TO COMING TO CCU. PER MECHANICAL TECHNICIAN, PT HAD A FUSTICA FROM STOMACH TO COLON REPAIRED AND LARGE MASS REMOVED FROM STOMACH. PT INFORMED AT THIS TIME ABOUT PT RETURN FROM OR.
--- NOTE | 2022-05-27 19:26 | NUR ---
05/27/221925 Nohelia Gambino 184-PATIENT ARRIVES TO CCU ON 6L VIA NC. NG IN PLACE. ORAL AIRWAY IN PLACE. PATIENT IS NONAROUSABLE. O2 UPPER 90'S ON 6L. 185-PATIENT IS REACTIVE TO VERBAL STIMULI. ORAL AIRWAY REMOVED. PATIENT IS MOANING. 1857-SUCTION USED. PATIENT IS MOANING. SHAKES HER HEAD YES TO PAIN. O2 SATS REMAIN IN THE UPPER 90'S.
--- NOTE | 2022-05-27 20:42 | NUR ---
TOOK OVER FOR PACU AT 1999 PATIENT IS DROWSY BUT ALERTS TO VOICE. ORIENTED TO PERSON, PLACE, AND EVENT. REPORTS DIFFICULT TO CONTROL PAIN, NO NAUSEA. DISCUSSED NG TUBE AND PATIENT VERBALIZED UNDERSTANDING OF THE IMPORTANCE OF THE NG AND AGREES TO NOT TOUCH HER FACE. AT BEDSIDE ALSO UNDERSTANDS THIS. TOLERATING 1L WHILE SLEEPING, ROOM AIR WHILE AWAKE AND TALKING. LUNGS ARE CLEAR; DIM IN THE BASES. SHALLOW BREATHING DUE TO PAIN. ABD IS SOFT, MILDLY DISTENDED WITH RARE BOWEL SOUNDS. PATIENT DENIES NAUSEA. SMALL AMOUNT OF OUTPUT IN THE NG CANISTER. GIA EMPTIED BY PACU; MINIMAL OUTPUT IN IT. MIDLINE AND GIA DRESSING INTACT; SMALL SHADOWING NOTED. ECKERT IN PLACE; PATIENT HAS HAD GOOD OUTPUT. WILL CONTINUE TO MONITOR. SCDS IN PLACE. IV FLUIDS CONTINUING FROM PACU ORDERS; PORT SITE WNL. DRESSING INTACT. IN TO SEE PATIENT AND PLAN OF CARE DISCUSSED.
--- NOTE | 2022-05-27 21:00 | NUR ---
PATIENT'S PAIN BECAME OUT OF CONTROL WITH MOANING AND DIFFICULT TO CONTROL. MD PUT IN ORDERS AND PACU DOSE OF FETANYL USED PER VERBAL ORDER. WHEN PRN ORDERS FOR CCU VERIFIED PRN MORPHINE, TORDOL AND ZOFRAN ADDED. PATIENT THEN BEGAN TO CALM. VS STABLE. TOLERATING 1L OXYMASK.
--- NOTE | 2022-05-27 21:41 | NUR ---
THIS RN IN ROOM FOR SCHEDULED MEDS. PATIENT WAKES EASILY TO VOICE AND TOUCH. DENIES ANY NEEDS. NO NAUSEA, ADEQUATE PAIN CONTROL, AND OVERALL COMFORTABLE. VS STABLE. TOLERATING 2L OXYMASK. NG TUBE IN PLACE, NO CONCERNS. AT BEDSIDE.
--- NOTE | 2022-05-27 23:00 | NUR ---
PATIENT REPORTS PAIN 8/10. ATTEMPTING TO COUGH BUT DIFFICULT DUE TO PAIN. EDUCATED AND ASSISTED PATIENT TO SPLINT THE STOMACH FOR COUGHING. PRN MEDS PROVIDED. PATIENT APPEARS MORE COMFORTABLE. VS STABLE. IV FLUIDS PER ORDER, SITE WNL. DRESSING ON NG TUBE REPLACED DUE TO POOR ADHERANCE TO THE NOSE. PATIENT TOLERATED WELL. 2L OXY MASK IN PLACE. URINE OUTPUT HAS BEEN 20 ML/HR. WILL CONTINUE TO WATCH.
--- NOTE | 2022-05-28 02:45 | NUR ---
PATIENT WOKE EASILY TO VOICE. REPORTS PAIN 4/10 BUT REQUEST PAIN MEDS AND APPEARED UNCOMFORTABLE. PRN MORPHINE PROVIDED. GIA HAS MINIMAL OUTPUT. NG TUBE FLUSHED WITH 30 MLS WATER AND THEN RECONNECTED TO REGULAR SUCTION FOR 2-3 MINS. THEN CARAFATE DISOLVED IN WATER WAS ADMINISTERED PER NG AND CLAMPED. VS STABLE. IV FLUIDS PER ORDER, SITE WNL. CALL LIGHT IN REACH.
--- NOTE | 2022-05-28 05:30 | NUR ---
PATIENT REPORTS PAIN 6/10 WHICH CONTINUED AFTER RECEIVING PRN MORPHINE. PRN TYLENOL AND TORADOL ADDED. ICE PACKS TO ABD. PATIENT GOWN AND DRAW SHEET CHANGED DUE TO DIAPHORESIS. PATIENT REPOSITIONED IN BED AND OFFERED ORAL SWABS. PATIENT REMEMBERS SOME OF HER RECOVERY TIME BUT IS A LITTLE FORGETFUL. ORIENTED TO PERSON, PLACE, AND EVENT. NG TUBE IN PLACE, MINIMAL OUTPUT. NO NAUSEA. ABD IS SOFT, TENDER. BOWEL SOUNDS HYPOACTIVE/RARE. ECKERT IN PLACE. OUTPUT IS ON LOW SIDE; WILL UPDATE MD. SCDs IN PLACE. PATIENT RECEIVING SCHEDULED ABX.
--- NOTE | 2022-05-28 06:51 | NUR ---
UPDATE GIVEN TO IVF BOLUS AND SSI ORDERED; SEE EMAR
--- NOTE | 2022-05-28 07:30 | NUR ---
REPORT RECEIVED, CARE OF PT ASSUMED AT THIS TIME. PT RESTING IN BED WITH AT BEDSIDE. CURRENTLY ON 5 L OM, SPO2 = 95%. PT REPORTS PAIN IS CURRENTLY UNDER CONTROL. CALL LIGHT WITHIN REACH. WILL CONTINUE TO MONITOR.
--- NOTE | 2022-05-28 08:00 | NUR ---
MEDICATION ADMINISTRATION AND PT ASSESSMENT COMPLETED. PT ALERT AND ORIENTED, ANSWERING ALL QUESTIONS APPROPRIATELY. PT REPORTS PAIN CONTROLLED IN ABDOMEN AT THIS TIME, BUT DOES REPORT SORE THROAT. SUPPLEMENTAL OXYGEN DECREASED FROM FIVE LITERS TO THREE LITERS ON OXYMASK. ENCOURAGED DEEP BREATHING AND COUGHING AT THIS TIME. HEART RATE IN THE 60S. RADIAL PULSES STRONG BUT PEDAL PULSES WEAK AND THREADY. PT SKIN IS PALE, CAP REFILL DELAYED. ABDOMEN SOFT AND NON DISTENDED. SANGINEOUS FLUID NOTED IN GIA DRAIN. MIDLINE INSICISION DRESSING CLEAN DRY AND INTACT. BOWEL TONES HYPOACTIVE BUT PRESENT. PT GIVEN 2 UNITS OF INSULIN PER SLIDING SCALE AND OTHER MEDICATIONS ADMINISTERED. IV FLUIDS INFUSING. CALL LIGHT WITHIN REACH. WILL CONTINUE TO MONITOR.
--- NOTE | 2022-05-28 08:37 | NUR ---
PT REPORTS ABDOMINAL PAIN SHE RATES 6/10. PRN MORPHINE ADMINSITERED AT THIS TIME (SEE EMAR).
--- NOTE | 2022-05-28 10:52 | NUR ---
DR WOMACK IN ROOM AT THIS TIME TO ASSESS PT.
--- NOTE | 2022-05-28 11:04 | NUR ---
PT RESTING IN BED, O2 MASK IN USE AND NGT. PT THAN KED ME FOR COMING BY, RESTING ON COUCH. PT WORRIED ABOUT DRAIN SPILLNG. GAVE SEBASTIAN STEIN WILL ATTEND. WILL FOLLOW
--- NOTE | 2022-05-28 12:15 | NUR ---
O2 MASK OFF, NGT STILL IN USE. PT SAID SHE IS FEELING BETTER, DRAIN EMPTIED. SHE WAS WORRIED ABOUT MAKING A MESS. GAVE RODGER CORTES IN TO CARE FOR PT. WILL FOLLOW
--- NOTE | 2022-05-28 12:30 | NUR ---
Spoke with Whit. 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 She lives with her spouse in a home with 6 steps in the front and 2 in the back. She denies issues getting in and out of the house. She and her spouse are retired. They share house hold chores, shopping, and cooking. Both drive. Pt states they have some financial issues and have lost their food stamps as Covid relief has subsided. Has used the food bank and will begin to do so again. Pt states she is able to clean her house and shower without assist. She plans on dc to home, but believes she will need to remain in the hospital for 10 days. Denies need for DME. Phone number for [facility] given to discuss assist with food.
--- NOTE | 2022-05-28 12:30 | NUR ---
PT PREMEDICATED FOR PAIN AND ASSISTED UP TO CHAIR. WELL TOLERATED BY PT. STAND BY ASSIST ONLY REQUIRED. PT NOW RESTING IN CHAIR. NG TUBE CLAMPED AT THIS TIME. HEART RATE IN THE 60S. SPO2 = 93% ON ROOM AIR. FAMILY AT BEDSIDE. CALL LIGHT WITHIN REACH. WILL CONTINE TO MONITOR.
--- NOTE | 2022-05-28 12:55 | NUR ---
DR WOMACK UPDATED ON PT CONDITION. PLAN ESTABLISHED FOR PT TO BE CHANGED TO MEDICAL/SURGICAL FLOOR STATUS. PT AND FAMILY UPDATED AT THIS TIME.
[2022-05-28] MEDS ORDERED: NOVOLOG MI100 UNIT/2 SUB-Q (13:03)
[2022-05-28] MEDS ORDERED: HYDROCODON-ACE1 EAC8 PO (13:05)
[2022-05-28] MEDS ORDERED: OMEPRAZOLE40 MG PO (13:06)
[2022-05-28] MEDS ORDERED: ONDANSETRON ODT4 MG PO (13:07)
--- NOTE | 2022-05-28 13:30 | NUR ---
PT REMAINS UP IN CHAIR. DENIES ANY NEEDS AT THIS TIME. FAMILY AT BEDSIDE. WILL CLOSELY MONITOR.
[2022-05-28] MEDS ORDERED: PROMETHAZINE HC25 M1 PO (14:15)
--- NOTE | 2022-05-28 14:16 | NUR ---
MED REC COMPLETE
--- NOTE | 2022-05-28 15:00 | NUR ---
PT GIVEN PAIN MEDICATION AND ASSISTED BACK TO BED. IV ABX GIVEN. ECKERT CATHETER DC'D. CALL LIGHT WITHIN REACH. WILL CONTINUE TO MONITOR.
--- NOTE | 2022-05-28 16:47 | NUR ---
PT GIVEN PRN PAIN MEDICATION FOR ABD PAIN SHE RATES 7/10. IV FLUIDS CONTINUE TO INFUSE. CALL LIGHT WITHIN REACH. WILL CONTINUE TO MONITOR.
--- NOTE | 2022-05-28 17:47 | NUR ---
PT UP TO BEDSIDE COMMODE TO VOID AND BACK TO BED. IV FLUIDS INFUSING. REPORTS PAIN IS 5/10 AT THIS TIME. ASSISTED WITH REPOSITIONING. CALL LIGHT WITHIN REACH. WILL CONTINUE TO MONITOR.
--- NOTE | 2022-05-28 19:50 | NUR ---
PT CALLED TO REQUEST PAIN MEDICATIONS. THIS RN INTO PT ROOM, PT REPORTS PAIN 7/10 AT ABD/SURGERY SITE. 6MG IV MORPHINE AND 1000MG IV TYLENOL ADMINISTERED AT THIS TIME. PT HAS VISITOR AT BEDSIDE.
--- NOTE | 2022-05-28 21:55 | NUR ---
ROUNDING AT PT ROOM, PT IS RESTING IN BED EYES CLOSED RESP REGULAR. NO DISTRESS NOTED, PT'S DAUGHTER AT BEDSIDE IN RECLINER, SHE SAID, "SHE IS SLEEPING" NO REQUESTS OR CONCERNS AT THIS TIME.
--- NOTE | 2022-05-28 22:52 | NUR ---
PT UP TO BEDSIDE COMMODE, TOLERATED ACTIVITY WELL, STEADY MOVEMENTS, GAIT. ONE PERSON STANDBY ASSIST. PT VOIDED 200ML URINE. EMPTIED 30ML FROM GIA DRAIN AT LEFT ABD.
--- NOTE | 2022-05-29 01:44 | NUR ---
PT USED CALL LIGHT TO REQUEST ASSISTANCE TO USE BEDSIDE COMMODE. PT REPORTS PAIN 7/10, PT STANDBY ASSIST TO BEDSIDE COMMODE, ADMINISTERED 6MG IV MORPHINE PRN FOR ABD PAIN. PT VOIDED 175ML URINE. FLATUS POSITIVE. PT ASSISTED POSITIONING FOR COMFORT. NO OTHER REQUESTS OR CONCERNS.
--- NOTE | 2022-05-29 04:33 | NUR ---
PT UP TO USE BEDSIDE COMMODE, VOIDED 125ML, YELLOW URINE. PT TOLERATED ACTIVITY WITH INCREASED PAIN, SHE REPORTS PAIN 8/10, 6MG IV MORPHINE ADMINISTERED AT THIS TIME, SHE REPORTS NO NAUSEA. FLATUS POSITIVE.
--- NOTE | 2022-05-29 05:12 | NUR ---
pt reports continued pain 11/18 after 6mg iv morphine adminstered. tordol 30mg iv prn at this time administered
--- NOTE | 2022-05-29 05:45 | NUR ---
CALLED TO REPORT HGB 5.8 THIS AM LABS, HE ORDERED TO HAVE TWO UNITS CROSS MATCHED, RUN PERIPHERAL CBC REPEAT IF HGB CRITICAL INFUSE 2 UNTIS OF BLOOD WHEN AVAILABLE. ORDERS PLACED.
--- NOTE | 2022-05-29 07:30 | NUR ---
PATIENT RESTING WITH EYES CLOSED, RR EVEN, UNLABORED WITH RATE OF 12/MIN. REPORT RECEIVED, CARE ACCEPTED.
--- NOTE | 2022-05-29 10:25 | NUR ---
REMOVED NG WHILE THIS NURSE OFF UNIT. PATIENT TOLERATED WELL.
--- NOTE | 2022-05-29 10:40 | NUR ---
1100 OUT FROM IN CANNISTER AT TIME OF D/C.
--- NOTE | 2022-05-29 11:45 | NUR ---
INITIATED BLOOD TRANSFUSION, PATIENT TOLERATING WELL OF 30 MINUTES AFTER START. PATIENT EDUCATED ON REACTION S/S AND WHEN TO CALL. PATIENT ACKNOWLEDGES UNDERSTANDING.
--- NOTE | 2022-05-29 11:57 | NUR ---
PATIENT RESTING, WATCHING TV. NO COMPLAINTS AT THIS TIME. NO CHANGES SINCE AM ASSESSMENT NOTED.
--- NOTE | 2022-05-29 12:22 | NUR ---
PATIENT CONTINUES TO REST WITH EYES CLOSED. NO COMPLAINTS AT THIS TIME. PRBC'S INFUSING.
--- NOTE | 2022-05-29 13:07 | NUR ---
BEDSIDE REPORT GIVEN TO RODGER ADDISON. PATIENT TO TRANSFER TO ROOM 114. BLOOD REMAINS INFUSING. ALL BELONGINGS MOVED WITH PATIENT.
--- NOTE | 2022-05-29 14:08 | NUR ---
PT ARRIVED ON MED SURG WITH [employer] PHARMACY STUDENT. PT IS RECIEVING BLOOD, STARTED IN CCU AND CONTINUED ON MED/SURG. PT IS UP IN CHAIR, REPORTS "ITS GOOD TO BE UP". ADVISED THAT ON MED/SURG, WE LIKE TO HAVE PEOPLE UP IN THE CHAIR SEVERAL TIMES A DAY OR WALK AROUND THE UNIT. PT HAD ALL PERSONAL BELONGINGS BROUGHT OVER TO MED/SURG WITH HER. NO NEEDS AT THIS TIME.
--- NOTE | 2022-05-29 16:06 | NUR ---
PT IS GETTING UP TO BATHROOM WITH ASSISTANCE FROM DAUGHTER. NEW GOWN LAID OUT ON BED FOR PATIENT, DUE TO SEEPING FROM ABDOMEN. ALARMS CONTINUE TO GO OFF.
--- NOTE | 2022-05-29 16:50 | NUR ---
GIA DRESSING CHANGED DUE TO SATURATION. AREA CLEANED, SPLIT SPONGE PLACED OVER SITE, SECURED WITH TEGADERM. AREA HAD NO S/SX OF INFECTION.
--- NOTE | 2022-05-29 17:35 | NUR ---
CALLED MD TO UPDATE. PATIENTS HAD A GOOD AFTERNOON. PATIENT TAKES PRN NORCO 10/325 AT HOME. MD OKAYED FOR HOME MEDICATION. ORDER PLACED FOR FOLLOW-UP CBC AT THIS TIME WELL. NO OTHER NEEDS AT THIS TIME. CYN SOARES UPDATED ON PLAN OF CARE.
--- NOTE | 2022-05-29 18:55 | NUR ---
DEANN BLOOD SAMPLE OFF PORT. FLUSHED LINE, WASTED 10ML BLOOD, BLOOD DRAWN, LINE FLUSHED AGAIN. IVF REATTACHED. TWO NURSE VERIFICATION WITH RODGER SLADE AND THIS RN, LABEL WAS CORRECTLY LABELED. SAMPLE PLACED IN TUBE AND SENT TO LAB.
--- NOTE | 2022-05-29 20:00 | NUR ---
ASSUMED CARE OF PATIENT UPON RECEIVING HANDOFF REPORT FROM PREVIOUS NURSE. PT SITTING UP IN BED, AOX4, IV INFUSING WITHOUT ISSUE, NAD, NO C/O. SURGICAL DRESSING C/D/I. WILL CONTINUE TO MONITOR AND FOLLOW POC.
--- NOTE | 2022-05-29 20:15 | NUR ---
CALLED LAB AT SHIFT CHANGE, PER LAB THEY DID NOT RECEIVE ORDERED STAT LABS FROM [facility]. SPOKE TO [facility] RN CYN AND SHE REPORTED AT APPROX 1930 THAT SHE SENT LABS. LABS REDRAWN VIA PORT PER PROTOCOL AND WALKED TO LAB BY THIS RN, POTASSIUM ALSO ADDED PER POLICY FOR POTASSIUM CHECK. PRIMARY RN MAURICIO IN ROOM FOR pt CARE. CALL LIGHT IN REACH, pt IN GOOD SPIRITS AND INTERACTIVE.
--- NOTE | 2022-05-29 20:47 | OR ---
[facility] [address], [place] [address] Signed DATE OF OPERATION: 05/27/2022 SURGEON: Popeye Womack MD PREOPERATIVE DIAGNOSES: 1. 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 2. History of stage IV colon carcinoma, status post left partial colectomy and subsequent transverse colectomy with adjuvant therapy. POSTOPERATIVE DIAGNOSES: Large ulcerated gastric neoplasm, greater curve of stomach and posterior aspect of stomach with direct penetration to mid transverse colon with gastrocolic fistula. PROCEDURES: 1. Exploration of abdomen and lysis of adhesions. 2. Partial gastrectomy. 3. Partial transverse colectomy with end-to-end anastomosis. 4. Mobilization of splenic flexure (all of this prolonged, complicated, and difficult lasting from 12:49 p.m. to 6:24 p.m.. ANESTHESIA: General endotracheal, Shiva Sloan and Rohan Garcia CRNA and postoperative TAP block. BLOOD LOSS: Approximately 250 mL. INDICATION: This 66-year-old white woman is well known to me from the past. She is a patient of Dr. Vogel as well as Dr. Fabiano Hernandez. In 2019, she underwent resection of the colon with primary anastomosis and diverting loop ileostomy for a perforated colon cancer. She subsequently underwent cholecystectomy as well as takedown of the ileostomy. Subsequent finding of secondary neoplasm in the transverse colon culminated in right transverse colectomy. The patient was noted to have regionally advanced metastatic disease and has undergone therapy with Dr. Hernandez, which has included pembrolizumab Keytruda which has been ineffective. She recently underwent a PET scan under the direction of Dr. Hernandez, which showed neoplasm in the stomach with direct connection to the transverse colon causing clinical findings of gastrocolic fistula. Electronically Signed By: POPEYE WOMACK MD 05/29/225 PATIENT NAME: CAPRICE AMADOR OPERATIVE REPORT DATE OF : 55 REPORT #: [id number] PHYSICIAN: POPEYE WOMACK MD PCP: NIKKY VOGEL MD REPORT IS CONFIDENTIAL AND NOT TO BE RELEASED WITHOUT AUTHORIZATION [facility] [address], [place] [address] Signed I recently performed upper endoscopy and colonoscopy on her, confirming a giant ulcerating mass of the stomach on the greater curve in the posterior aspect of the stomach. Passage of the scope through the colon did not demonstrate the fistula directly, but contrast study including upper GI did so. The patient is admitted at this time to undergo resection of the mass if possible and if not any palliative measures, which may improve her overall functional day-to-day living. The patient has had significant weight loss in part related to the gastrocolic fistula. The patient and her and understand the risk of bleeding, infection, need for limited procedure depending on resectability of the large neoplasm and wished to proceed. FINDINGS: Indeed a dense mass the size of a cantaloupe was noted. The mass was ulcerated within the posterior wall of the stomach and the greater curve of the stomach. That portion of the stomach itself was approximately 13 cm. The mass was independent of the pancreas itself; a plane was developed between the pancreas and the mass allowing for its mobility. Direct connection to the federico transverse colon was also noted requiring segmental resection of the mid transverse colon with primary anastomosis. The portion of stomach resected was sizable, however, spared as much as possible, so as to provide a functional stomach in this generally palliative endeavor. A drain was placed directly over the body of the pancreas. Following resection, though there was no direct injury to the pancreas, spleen, or other surrounding tissue. DESCRIPTION OF PROCEDURE: The patient was brought to the operating room, given a general endotracheal anesthetic. A Gillis catheter was placed. The port device over the right chest wall was used through the procedure. She had undergone a full bowel prep including oral antibiotics. The abdomen was prepared with a chlorhexidine solution and draped sterilely. Prior incisions included midline incision as well as a chevron type incision. Incision was extended from the xiphoid to the umbilicus. Midline fascia had been repaired with implantation of Prolene mesh in an underlay technique and this tissue was divided with sharp electrocautery dissection revealing the intra-abdominal contents. There was no evidence of carcinomatosis or ascites in any way. Extreme care was taken to enter the abdomen and avoid injury to underlying organs. The peritonealization of the mesh allowed for minimal adhesive connections to the previous repair. Sharp and blunt electrocautery dissection was undertaken freeing the left lateral lobe of the liver from the anterior abdominal wall. Inspection showed bowel loops to be free from any carcinomatosis or other problem. The bulky mass in the epigastric area was clearly behind the stomach itself extending to much of the greater curvature and definitely penetrating deep into the depths of the abdomen. Tethered to it densely was the Electronically Signed By: POPEYE WOMACK MD 05/29/22 2487 PATIENT NAME: CAPRICE AMADOR OPERATIVE REPORT DATE OF : 55 REPORT #: [id number] PHYSICIAN: POPEYE WOMACK MD PCP: NIKKY VOGEL MD REPORT IS CONFIDENTIAL AND NOT TO BE RELEASED WITHOUT AUTHORIZATION [facility] [address], [place] [address] Signed transverse colon which initially was uncertain as to its actual point of fistulization. Meticulous dissection was undertaken freeing the mass and surrounding soft tissue and defining it well. Splenic flexure mobilization was undertaken of the splenic flexure of the colon, mobilizing it towards the midline. The ligament of Treitz was similarly freed defining well the mass away from the superior mesenteric vascular arcade. The mass was somewhat fixed to the retroperitoneum, but not and persistence in mobilizing the stomach as well as the transverse colon area was undertaken in the thought she may require a palliative intervention short of actual resection of the mass. Ultimately, a Bookwalter retractor was attached to the table and further dissection undertaken in the perihilar area of the spleen. Short gastrics were secured with clips as necessary, freeing the stomach on the left and superiorly. The gastrophrenic attachments were freed with electrocautery dominantly. The mass appeared to be densely adherent to the fair amount of the posterior wall of the stomach dominantly. A plane was developed between the pancreas and the mass itself and using blunt dissection and application of small clips as necessary to small vessels further mobility of the mass from the retroperitoneum specifically the pancreas was accomplished. Care was taken to avoid injury to the spleen. Posterior to the spleen was a plaque-like density, whether malignant or simply scar tissue was uncertain. Attention was turned to the transverse mesocolon. Its mesentery was defined from the retroperitoneum as the transverse colon was densely adherent to the mass no doubt accounting for the gastrocolic fistulization. Once the right and left sides of the transverse colon were freed more fully, the actual extent of involvement could be determined, which was about 4 cm or so. In the region of the pylorus and the distal antrum, there was good mobility and no involvement of tumor there. A considerable amount of time and effort was taken to avoid catastrophic injury particularly to the superior mesenteric vessels which though regionally tethered with adhesions were freed completely posterior to the greater curve of the stomach and the transverse colon itself. An isolated segment of transverse colon was needed for resection. The mesenteric fat was incised with electrocautery and serial application of hemostats to the vessels corresponding to the segment of resection was undertaken. Vascular bundles were secured with 0 silk ties. A JANIYA 60 mm stapling device was used to transect the two segments of transverse colon allowing that segment to remain attached to the neoplasm emanating from the posterior aspect of the stomach. This allowed for elevation of the gastric remnant with further dissection posteriorly accomplished. The bulking neoplasm was far larger than expected and had an ulcerative pit in the central portion of it. Though, one would have like to have simply used a JANIYA stapling Electronically Signed By: POPEYE WOMACK MD 05/29/222046 PATIENT NAME: CAPRICE AMADOR OPERATIVE REPORT DATE OF : 55 REPORT #: [id number] PHYSICIAN: POPEYE WOMACK MD PCP: NIKKY VOGEL MD REPORT IS CONFIDENTIAL AND NOT TO BE RELEASED WITHOUT AUTHORIZATION [facility] [address] [place] [id number] Signed device to transect stomach in a tubular configuration. The broad nature of the neoplasm would not allow such an approach. The margins of the anterior and posterior gastric wall were marked with 3-0 silk sutures circumferentially anticipating an operative dissection of the gastric tumor from normal remaining stomach. Using electrocautery, the line of resection which was at least 2 cm circumferentially was undertaken dividing 1st the serosa and ultimately mucosa maintaining hemostasis with electrocautery. A nasogastric tube was passed by the conservation specialist, which decompressed the stomach to a degree. Upon entering to the anterior aspect of the stomach, the deep ulcerated neoplasm could be well evaluated. The ulcerative area was at least 4 cm in size. Complete and circumferential excision of the gastric neoplasm was thus undertaken in continuity with the transverse colon to which it had fistulized. The remaining stomach would now accommodate closure with maintenance of a reasonable gastric reservoir. Initially, consideration for the JANIYA stapling device to close this defect was made, however, it was too bulky and impractical. Instead, 60 stapling device with 4.8 mm samaria was used to secure the gastric defect sequentially along the anterior aspect of the stomach. The final load at the antrum was applied transversely to accommodate the anatomic configuration there. The staple line was oversewn with interrupted 3-0 silk sutures. A nasogastric tube was insufflated with air under saline submergence showing no evidence of leakage. Photographs were taken throughout. Irrigation was undertaken thoroughly in the retroperitoneal space demonstrating the entire length of the pancreas having been freed from the offending neoplastic process. There was no injury to the spleen nor to the pancreas itself. Good viability of the stomach was noted. Attention was turned towards the transected ends of the remaining transverse colon. The most practical and efficient for reanastomosis was a end-to-end colocolostomy. This was undertaken in a two-layer technique of interrupted 3-0 silk suture, having resected the staple lines during the course of the anastomosis. The mesenteric defect was reapproximated with running 3-0 Vicryl suture. Copious irrigation was undertaken of the intra-abdominal contents. Complete mobilization of splenic flexure had been accomplished allowing for a tension-free anastomosis. Through a left upper quadrant incision, a 7 mm flat Mario drain was placed in the retroperitoneum directly over the pancreas and behind the now normal-appearing stomach. Plans were then made for closure. The midline fascia was reapproximated with running bidirectional #1 Prolene suture considering mesh had been transected to enter the abdomen. Subcutaneous tissue was copiously irrigated and skin closed with running subcuticular 3-0 Vicryl. Steri-Strips were applied as was Acticoat dressing. A TAP block was placed by the conservation specialist at the conclusion of the procedure. Blood loss was estimated to be 250 mL. Sponge, needle, and Electronically Signed By: POPEYE WOMACK MD 05/29/22 2047 PATIENT NAME: CAPRICE AMADOR OPERATIVE REPORT DATE OF : 55 REPORT #: [id number] PHYSICIAN: POPEYE WOMACK MD PCP: NIKKY VOGEL MD REPORT IS CONFIDENTIAL AND NOT TO BE RELEASED WITHOUT AUTHORIZATION [facility] [address], [place] [address] Signed instrument counts were reported as correct x3. The operation was extraordinarily prolonged complicated difficult lasting from 12:49 p.m. to 6:24 p.m. was accomplished safely and with good clinical result. MD CLEMENT Landon/EBENEZER /[id number] cc: MD Fabiano Mckeon MD Copies: NIKKY VOGEL MD, ROBERT C MD ~ Electronically Signed By: POPEYE WOMACK MD 05/29/22 2047 PATIENT NAME: CAPRICE AMADOR OPERATIVE REPORT DATE OF : 55 REPORT #: [id number] PHYSICIAN: POPEYE WOMACK MD PCP: NIKKY VOGEL MD REPORT IS CONFIDENTIAL AND NOT TO BE RELEASED WITHOUT AUTHORIZATION
--- NOTE | 2022-05-29 22:50 | NUR ---
PERFORMED PAIN REASSESSMENT. PT REPORTS PAIN LEVEL IS DECREASING AND NO ADD'L COVERAGE DESIRED AT THIS TIME. WILL CONTINUE TO MONITOR AND FOLLOW POC.
--- NOTE | 2022-05-30 02:15 | NUR ---
PT SLEEPING, EASILY AROUSED. PERFORMED SCHEDULED PT CARE. PT AOX4, VSS, NAD, NO C/O. PT STATES PAIN IS WELL-CONTROLLED AT THIS TIME. IVF INFUSING CHARTED. SURGICAL DRESSINGS/DRAIN SITE C/D/I CHARTED. WILL CONTINUE TO MONITOR AND FOLLOW POC.
--- NOTE | 2022-05-30 05:49 | NUR ---
PT UP TO CHAIR. AOX4. PT C/O NAUSEA. MEDICATED PER MAR. MORNING LABS DRAWN FROM RIGHT CHEST PORT USING ASEPTIC TECHNIQUE. PT TOLERATED WELL. WILL CONTINUE TO MONITOR AND FOLLOW POC.
--- NOTE | 2022-05-30 05:57 | NUR ---
PT WITH NO ACUTE OVERNIGHT EVENTS. VSS, NAD, NO C/O. WILL CONTINUE TO MONITOR AND FOLLOW POC.
--- NOTE | 2022-05-30 07:37 | NUR ---
RECIEVED REPORT FROM RODGER MARTÍNEZ. PT IS UP TO CHAIR, A&O x4. NO NEEDS AT THIS TIME.
--- NOTE | 2022-05-30 07:55 | NUR ---
PT AWAKE IN CHAIR. PT INDEPENDENT TO RESTROOM. WHITE BOARD UPDATED. CALL LIGHT IN REACH. BLOOD SUGAR CHECKED. NO FURTHER NEEDS AT THIS TIME.
--- NOTE | 2022-05-30 09:51 | NUR ---
PT UP WALKING IN HALLS WITH RESOURCE PROTECTION SPECIALIST.
--- NOTE | 2022-05-30 13:04 | NUR ---
STARTED MAG RIDER. PT IS EATING MASHED POTATOES, TOLERATING WELL.
--- NOTE | 2022-05-30 15:08 | NUR ---
DISCUSSED PAIN REGIMEN WITH PT SHE AGREES TYLENOL SCHEDULED AND PRN OXY. WILL USE MORPHINE FOR BREAKTHROUGH ONLY NEEDED. PT VERBALIZES UNDERSTANDING. FRESH H20 AT CHAIRSIDE. PT HAS MASHED POTATOES FOR ADVANCE TO REGULAR DIET, STATES IS WENT WELL CAUSING NO NAUSEA OR DISCOMFORTS. DOZING NOW CALL LIGHT IN REACH
--- NOTE | 2022-05-30 15:36 | NUR ---
PT UP AMBULATING THE MIN. USES I/S WITH ENCOURAGEMENT. AGREES TO CONTINUE TO USE IT INTERMITTANTLY
--- NOTE | 2022-05-30 17:22 | NUR ---
PT AGREES THE OXY WAS VERY EFFECTIVE FOR PAIN CONTROL. MENU PROVIDED FOR BLUEPRINT ENGINEER CHOICES AND PREFERENCES. PT SITTING UP IN THE CHAIR NOW WITH EVENING MEAL DENIES NEEDS OF
--- NOTE | 2022-05-30 20:50 | NUR ---
ASSUMED CARE OF PT UPON RECEIVING BEDSIDE HANDOFF FROM DAY NURSE. PT AOX4, NAD, NO C/O, STATES PAIN IS WELL-CONTROLLED AT THE MOMENT. PT UP TO CHAIR, UTILIZING IS. WILL CONTINUE TO MONITOR AND FOLLOW POC.
--- NOTE | 2022-05-30 23:18 | NUR ---
pt UP IN CHAIR, DROWSY. EGG CRATE MATTRESS APPLIED TO BED FOR COMFORT. PERSONAL SUPPLIES AND CALL LIGHT IN REACH.
--- NOTE | 2022-05-31 01:52 | NUR ---
PT AWAKE IN BED. AOX4. REPORTS PAIN CHARTED. MEDICATED PER JUN. NAD, NO OTHER C/O. NO CHANGE TO PREVIOUS ASSESSMENT. WILL CONTINUE TO MONITOR AND FOLLOW POC.
--- NOTE | 2022-05-31 05:13 | NUR ---
PER CHARGE NURSE, NOTIFIED PROVIDER THAT PT C/O URINARY FREQUENCY, URGENCY, AND LOWER ABDOMINAL PAIN AND TENDERNESS TO PALPATION. FIRST PVR AFTER 200ML UOP WAS 497. PT THEN HAD 6 VOIDS FOR A TOTAL UOP OF 500ML AND SHOWED A PVR OF 600ML. PT EXPRESSED SOME RELIEF FROM PAIN MEDICATION ADMINISTERED FOR THIS PAIN. 7/10 PAIN REDUCED TO 5/10. ORDERS REC'D. WILL CONTINUE MONITORING AND FOLLOW POC/ORDERS.
--- NOTE | 2022-05-31 06:00 | NUR ---
THIS AND ANOTHER RN TO BEDSIDE TO INSERT ECKERT CATHETER INSERTED PER ORDER, USING STERILE TECHNIQUE. PT TOLERATED WELL. 600ML UOP CHARTED, AND 0ML RETAINED ASSESSED WITH BLADDER SCAN. PT STATES SHE FEELS RELIEF OF THE BLADDER PRESSURE SHE WAS EXPERIENCING AND ALSO THAT THE PAIN MEDICINE HELPED WELL. WILL CONTINUE TO MONITOR AND FOLLOW POC/ORDERS.
--- NOTE | 2022-05-31 06:50 | NUR ---
PT RESTING COMFORTABLY IN BED. STATES PAIN IS WELL-CONTROLLED. MORNING LABS DRAWN FROM RIGHT CHEST PORT USING ASEPTIC TECHNIQUE. ALL LINES AND TUBES/DRAINS PATENT. MIDLINE ABD INCISION AND GIA SITE DRESSINGS ARE C/D/I. WILL ENDORSE TO DAY SHIFT THAT PT HAD 600ML UOP AFTER ECKERT INSERTION, SO THEY MAY ENDORSE TO DR. WOMACK. WILL CONTINUE TO MONITOR AND FOLLOW POC UNTIL HAND OFF OF CARE OF PT TO DAY NURSE AFTER GIVING BEDSIDE REPORT.
--- NOTE | 2022-05-31 07:00 | NUR ---
BEDSIDE HANDOFF REPORT RECEIVED FROM PERIOPERATIVE NURSE RN. PT RESTING IN BED. PT DENIES NEEDS AT THIS TIME.
--- NOTE | 2022-05-31 08:13 | NUR ---
PT RESTING IN BED. PT ON ROOM AIR, LUNG SOUNDS CLEAR, DENIES SOB. PT RATING PAIN 4-5/10, REQUESTING OXYCODONE, 10 MG GIVEN. MIDLINE INCISION CDI, GIA TO LEFT SIDE WITH SCANT DRAINAGE. BOWEL TONES ACTIVE, DENIES NAUSE, TOLERATING REGULAR DIET. CMS INTACT, WITHOUT EDEMA. RIGHT CHEST PORT FLUSHED, BRISK BLOOD RETURN. ECKERT CATH DRAINING CLEAR YELLOW URINE. PT DENIES OTHER NEEDS AT THIS TIME. DISCUSSED PLAN OF CARE FOR THE DAY, PLAN TO WALK IN MIN AFTER BREAKFAST.
--- NOTE | 2022-05-31 09:38 | NUR ---
NOTIFIED RN OF PATIENTS PAIN. RN SAID PATIENT JUST GOT PAIN MEDS AND ASKED TO AMBULATE PATIENT. PATIENT AMBULATED 1 LAP IN HALLWAY, SBA. PATIENT BACK TO ROOM SITTING UP IN CHAIR. CALL LIGHT IN REACH. NO FURTHER NEEDS AT THIS TIME.
--- NOTE | 2022-05-31 10:14 | NUR ---
PT COMPLAINT OF ABD PAIN 09/18, COMES AND GOES, REQUESTING PAIN MEDICATION, GIVEN 4MG IV MORPHINE. DISCUSSED GAS PAINS AND WALKING IN MIN, PT HAS WALKED IN MIN THIS AM AND WILL CONTINUE TO THROUGHOUT DAY. CALL PLACED TO DR. WOMACK, MESSAGE LEFT.
--- NOTE | 2022-05-31 12:52 | NUR ---
PT ASSISTED TO WALK IN MIN, COMPLETED 2 LAPS AROUND NURSING FLOOR. PT NOW RESTING IN BED. PT PROVIDED WITH FRESH WATER. DENIES OTHER NEEDS AT THIS TIME.
--- NOTE | 2022-05-31 13:48 | NUR ---
PATIENT IN BED RESTING AT THIS TIME. VITALS AND I&O'S CHARTED. BLOOD PRESSURE HIGH. PATIENT REPOSRT STILL HAVING PAIN. RN NOTIFIED. CALL LIGHT IN REACH. NO FURTHER NEEDS AT THIS TIME.
--- NOTE | 2022-05-31 14:06 | NUR ---
PT CONTINUES TO RATE ABD PAIN HIGH 8/10, GIVEN 10MG OXYCODONE. PT UNCOMFORTABLE, RESTLESS, DISCUSSED WITH PT AND PT AGREEABLE TO ATIVAN, 0.5 MG IV GIVEN. BOWEL TONES ACTIVE. MIDLINE INCISION CDI, GIA DRAIN WITH CLEAR PINK SEROSANGUINOUS FLUID. PT STATES ABD PAIN HAS BECOME WORSE AFTER LUNCH. PT DENIES OTHER NEEDS AT THIS TIME. WILL CONTINUE TO MONITOR.
--- NOTE | 2022-05-31 14:51 | NUR ---
PT CONTINUES TO COMPLAIN OF NAUSEA, PAIN IS IMPROVING /. GIVEN 12.5 MG PHENERGAN FOR NAUSEA. DISCUSSED PAIN AND NAUSEA WITH PT, PT STATES PAIN IS SIMILAR TO THE PAST FEW DAYS, NO WORSE. NAUSEA IS A BIT WORSE THAN PREVIOUS DAYS, PT DOES STATE WALKING HELPS IMPROVE HER NAUSEA, PLAN FOR PT TO WALK IN 30-45 MINUTES. PT DENIES OTHER NEEDS AT THIS TIME.
--- NOTE | 2022-05-31 15:02 | NUR ---
PER AM MEETING AND MD NOTE NO PLAN FOR DISCHARGE TODAY PATIENT HAS HAD URINARY RETENTION WITH ECKERT PLACEMENT. NO CHANGE IN DISCHARGE PLAN AT THIS TIME, PATIENT WILL DISCHARGE HOME WITH WHEN STABLE.
--- NOTE | 2022-05-31 15:58 | NUR ---
DR. WOMACK ON FLOOR, UPDATED ON PT PAIN AND NAUSEA, ORDER TO BACK OFF TO FULL LIQUID.
--- NOTE | 2022-05-31 16:08 | NUR ---
PT SITTING ON EDGE OF BED. PT RATING PAIN 6/10. GIVEN SIMETHICONE FOR CONTINUED GAS PAIN. PT DECLINING WALK AT THIS MOMENT, BUT IS AGREEABLE FOR ANOTHER WALK THIS EVENING. PT PROVIDED WITH COOL CLOTH AND FRESH GOWN, PT DENIES OTHER NEEDS AT THIS TIME.
--- NOTE | 2022-05-31 17:40 | NUR ---
PT RATING PAIN 6/10, CONTINUES TO HAVE NAUSEA WITHOUT EMESIS, BELCHING FREQUENTLY. PT WILLING TO WALK IN THE MIN, SBA. WALKED TO NURSES STATION AND BACK TO ROOM. PT NOW SITTING ON EDGE OF BED. PT GOING TO TRY SIPS OF ENSURE MILK SHAKE, ENCOURAGED PT TO TAKE IT SLOW, GIVEN 1 UNIT HUMILIN FOR BG 150. PT DENIES OTHER NEEDS AT THIS TIME.
--- NOTE | 2022-05-31 18:11 | NUR ---
PT REQUESTING PAIN MEDICATION, GIVEN 6MG IV MORPHINE. PT HAS TAKEN A FEW SIPS OF SHAKE, ENCOURAGED TO TAKE IT SLOW. PT DENIES OTHER NEEDS AT THIS TIME.
--- NOTE | 2022-05-31 19:05 | NUR ---
SHIFT REPORT RECEIVED FROM GERRY SOARES. PT ASLEEP, RESP EVEN AND REG, PALE.
--- NOTE | 2022-05-31 19:48 | NUR ---
PT UP IN BR, SITTING ON TOILET, DENIES HAVING A BM BUT ATTEMPTING TO PASS GAS, BACK TO BED, C/O ABDOMINAL PAIN 11/18 AND REQUESTING PAIN MED SOON POSSIBLE, ASSISTED BACK TO BED GAIT STEADY, VS DONE.
--- NOTE | 2022-05-31 19:55 | NUR ---
PT REQUESTED MORPHINE FOR PAIN, MEDICATED PER ORDER WITH 6MG IV, PORT A CATH DRSG DRY AND INTACT, GOOD BLOOD RETURN AND FLUSHES WELL, MORPHINE GIVEN PER ORDER FOR PAIN 11/18. DISCUSSED PLAN OF CARE WITH PT, PT REQUEST OXYCODONE BE OFFERED TO HER Q 6, PT DESIRES TO HAVE ATIVAN AT THIS TIME TOO FOR ANXIETY.
--- NOTE | 2022-05-31 20:23 | NUR ---
PT DESIRES OXYCODONE AT THIS TIME, MEDICATED WITH 10MG PER ORDER.
--- NOTE | 2022-05-31 20:30 | NUR ---
PT MEDICATED WITH ATIVAN 0.5MG IV, PORT A CATH FLUSHED WITH 10ML AFTER ADMINISTRATION, ASSESSMENT COMPLETED, ACCUCHECK 217, 3 U INSULIN GIVEN PER ORDER, I/O DONE, MIDLINE ABDOMINAL DRESSING DRY AND INTACT, GIA DRESSING DRY AND INTACT, GIA EMPTIED FOR 25 ML SEROUS SANG FLUID. ECKERT PATENT AND DRAINING LIGHT YELLOW URINE, OUT 850 ML.
--- NOTE | 2022-05-31 21:00 | NUR ---
CPOX PLACED ON PT TO MONITOR POST OPIATES AND ATIVAN. PT AWAKENS BRIEFLY WITH PLACEMENT.
--- NOTE | 2022-05-31 21:30 | NUR ---
PT SLEEPING, OX SAT 93%, RESP RATE 16/MIN, SIDE RAILS UP X2, HOB SLIGHTLY ELEVATED.
--- NOTE | 2022-05-31 22:20 | NUR ---
PT CALLED RN, REQUESTING LINEN AND GOWN TO BE CHANGED, PT'S SKIN COOL AND DAMP, UP TO CHAIR, ACCUCHECK 223, LINEN CHANGED AND PT BACK TO BED, PT REQUESTING MORPHINE FOR ABDOMINAL PAIN, MED WITH 6MG PER ORDER. CPOX ON.
--- NOTE | 2022-05-31 22:27 | NUR ---
PT REQUESTING MED FOR NAUSEA, MEDICATED WITH ZOFRAN 8MG IV PER ORDER, PT RESTING QUIETLY, SATS 93%, RR 24. PT ASLEEP WITH EYES CLOSED.
--- NOTE | 2022-05-31 23:30 | NUR ---
PT ASLEEP, RESP EVEN AND REG, OX SATS 94%
--- NOTE | 2022-05-31 23:50 | NUR ---
PATIENT CALLED FOR PAIN MED. PRIMARY RN NOTIFIED. THIS OVERHAULER BUS TRUCK DID ECKERT CARE. NO OTHER NEEDS AT THIS TIME.
--- NOTE | 2022-05-31 23:53 | NUR ---
PT AWAKE, C/O PAIN 7/10 REQUESTING MORPHINE FOR PAIN, MORPHINE 6MG IV GIVEN PER PORT, SITE FLUSHES WELL, WITH GOOD BLOOD RETURN.
--- NOTE | 2022-06-01 00:05 | NUR ---
PT ASLEEP, RESP EVEN AND REG, SATS 90 AND HR 82 PER CPOX
--- NOTE | 2022-06-01 02:09 | NUR ---
PT ASLEEP, AWAKEN FOR RT MEDICATION, PT ALERT, OFFERED OXYCODONE PER EARILIER REQUEST, PT DESIRES TO TAKE MEDICATION AT THIS TIME FOR PAIN 09/18. MEDICATED PER ORDER WITH OXYCODONE 10MG AND RT TYLENOL. PT STATES PAIN IS MORE TOLERABLE AT THIS TIME.
--- NOTE | 2022-06-01 02:25 | NUR ---
RN TO ROOM TO DISCUSS MEDICATION FOR NAUSEA, SANDIP ORDERED WVERY 6 HOURS AND CURRENTLY TOO SOON TO REPEAT, PT FOUND ASLEEP, RESP EVEN AND REG, WITHOUT DISTRESS.
--- NOTE | 2022-06-01 03:53 | NUR ---
PT AWAKE, REQUESTING MORPHINE FOR PAIN AND MEDICATION FOR NAUSEA, REQUEST GOWN BE CHANGED, SKIN MOIST, PT UP TO SIDE OF BED FOR GOWN TO BE CHANGED, BACK TO BED, MEDICATED WITH MORPHINE 6MG FOR PAIN 10/18, PORT A CATH PATENT, GOOD BLOOD RETURN, CLAMPED.
--- NOTE | 2022-06-01 03:58 | NUR ---
PT RESTING QUIETLY IN BED, EYES CLOSED, MEDICATED WITH PHENERGAN 12.5MG IV OVER 5 MINUTES, PORT A CATH FLUSHES WELL AND CLAMPED, PT RESTING WITH EYES CLOSED. OX SATS 92% GR 83.
--- NOTE | 2022-06-01 06:06 | NUR ---
PT RESTING QUIETLY WITH EYES CLOSED, AWAKEN FOR VS AND I/O, PT STATES SHE IS FEELING BETTER, GIA OUT 10ML SEROUS FLUID, GIA GENTLY STRIPPED. PT BACK TO SLEEP WITHOUT DISTRESS.
--- NOTE | 2022-06-01 07:00 | NUR ---
BEDSIDE HANDOFF REPORT RECEIVED FROM PICK AND SHOVEL WORKER RN. PT SLEEPIN GIN BED, LEFT UNDISTURBED.
--- NOTE | 2022-06-01 08:02 | NUR ---
PT RESTING IN BED. PT ON AMANDA AIR, LUNG SOUNDS CLEAR, DENIES SOB. PT DENIES NAUSEA, BOWEL TONES ACTIVE. ABD WITH ACTICOAT MIDLINE CDI, GIA TO LEFT SIDE SMALL SEROUS DRAINAGE. CMS INTACT, WITHOUT EDEMA. ECKERT WITH CLEAR LIGHT YELLOW URINE, DC PER ORDER, DISCUSSED VOIDING TRIAL THIS MORNING. PT ASSISTED TO CHAIR, SBA. POLYTECHNIC REGISTRAR TO PASS MORNING MEDICATIONS WITH INSTRUCTOR. PT DENIES OTHER NEEDS AT THIS TIME.
--- NOTE | 2022-06-01 10:31 | NUR ---
PT COMPLETED WALKING IN MIN WITH UPKEEP WORKER. PT REQUESTIN PAIN MEDICATION, RATING ABD PAIN 6/10, GIVEN 10 MG OXYCODONE. PT DENIES NEED TO URINATE AT THIS TIME, WILL CONTINUE TO MONITOR.
--- NOTE | 2022-06-01 12:30 | NUR ---
PT REQUESTIONG PAIN MEDICATION, GIVEN 6 MG IV MORPHINE. PT DUE TO VOID, ENCOURAGED TO TRY, UNBALE TO VOID. BLADDER SCAN ATTEMPTED, BLADDER NOT WELL VISUALIZED, SCAN VOLUME OF 31ML, ABD SOFT, NOT ABLE TO PALPATE BLADDER. WILL CONTINUE TO MONITOR.
--- NOTE | 2022-06-01 14:52 | NUR ---
THE PLAN OF CARE HAS NO CHANGED. PATIENT WILL GO HOME WITH .
--- NOTE | 2022-06-01 15:16 | NUR ---
PT ATTEMPTED TO VOID, ABLE TO VOID TOTAL OF 50ML, UNABLE TO VISUAL BLADDER ON BLADDER SCANNER. ECKERT CATH PLACED PER DR. WOMACK ORDER, OBTAINED [address] WOMACK UPDATED, PT INTAKE 840 AND OUTPUT 400 FOR DAY, ORDER TO CONTINUE TO PUSH ORAL FLUIDS AND MONITOR FOR 4 HOURS, MAY NEED IV HYDRATION. PT UPDATED ON PLAN OF CARE.
--- NOTE | 2022-06-01 18:48 | NUR ---
PT REQUESTING PAIN MEDICATION, RATING PAIN 6/10, GIVEN 6MG IV MORPHINE. PT DENIES OTHER NEEDS AT THIS TIME.
--- NOTE | 2022-06-01 19:47 | NUR ---
RECEIVED REPORT FROM DAY SHIFT RN. PATIENT IS RESTING IN BED WATCHING TV. PATIENT RATES PAIN AT A 5/10 AND DENIES THE NEED FOR INTERVENTION AT THIS TIME. NO NEEDS NOTED. CALL LIGHT IN REACH.
--- NOTE | 2022-06-01 20:40 | NUR ---
PATIENT ASSMENT COMPLETED. PATIENTS VITALS TAKEN AND RECORDED. ECKERT AND GIA EMPTIED. INTAKE AND OUTPUT RECORDED. PATIENT HAS MIDLINE INCISION, ACTECOTE DRESSING IN PLACE, AND DRY OLD DRAINAGE NOTED. PATIENT HAS GIA IN LLQ. PATIENT HAS ECKERT IN PLACE FOR RETENTION. PATIENTS PM MEDS GIVEN PER ORDER. PATIENT RATES PAIN AT A 7/10, PRN PAIN MEDICATION GIVEN PER ORDER. PATIENT DENIES ANY NAUSEA. PATIENTS PORT FLUSHED AND SL PER ORDER. PATIENT PROVIDED WITH FRESH ICE WATER. NO FURTHER NEEDS NOTED. CALL LIGHT IN REACH.
--- NOTE | 2022-06-01 22:00 | NUR ---
PATIENT IS RESTING IN BED WATCHING TV. PATIENT DENIES ANY NEEDS. CALL LIGHT IN REACH.
--- NOTE | 2022-06-02 00:11 | NUR ---
PATIENT REPORTS 5/10 PAIN IN HER ABD. PRN PAIN MEDICATION GIVEN PER ORDER. PATIENT DENIES ANY FURTHER NEEDS. CALL LIGHT IN REACH.
--- NOTE | 2022-06-02 02:16 | NUR ---
PATIENT IS RESTING IN BED. PATIENT RATES PAIN IN HER ABD AT A 1/10 AND 5/10 IN HER BACK, SCHEDULED MEDICATION GIVEN PER ORDER FOR PAIN. PATIENTS SCHEDULED MEDICATION GIVEN PER ORDER. PATIENTS ECKERT EMTPIED. PATIENT DENIES ANY FURTHER NEEDS. CALL LIGHT IN REACH.
--- NOTE | 2022-06-02 04:07 | NUR ---
PATIENT IS RESTING IN BED WITH EYES CLOSED, RR 15. CALL LIGHT IN REACH.
--- NOTE | 2022-06-02 06:04 | NUR ---
PATIENTS VITALS TAKEN AND RECORDED.GIA AND ECKERT EMPTIED. INTAKE AND OUTPUT RECORED. PATIENT RATES PAIN AT A 4/10, PRN MEDS GIVEN PER ORDER. PATIENTS PORT FLUSHED W/10ML NS, WASTED 10ML BLOOD, PLACED 10ML OF BLOOD IN APPROPRIATE TUBES, SENT BLOOD TO LAB, FLUSHED PORT W/10ML NS, AND SL PER ORDER. PATIENT PROVIDED WITH FRESH GOWN. FRESH ICE WATER PROVIDED. PATIENT DENIES ANY FURTHER NEEDS. CALL LIGHT IN REACH.
--- NOTE | 2022-06-02 08:15 | NUR ---
PT UP TO RESTROOM. ABULATED INDEPENDENTLY, STEADY ON FEET. PT HAD A SMALL BM AND PERFORMED OWN TONNY CARE. THIS DRAINLAYER W/MANAGER OF INTERNATIONAL SULMA CHANGED LINENS ON CHAIR/BED. SULMA TOOK PT CBG AND RECORDED IT, TOHARSH MOLINA. REFILLED PT WATER. CALL ILIAURORAT IN HAND, NO OTHER REQUESTS AT THIS TIME.
--- NOTE | 2022-06-02 09:10 | NUR ---
PATIENT GIVEN 6MG OF IV MORPHINE FOR 6/10 ABDOMINAL PAIN.
--- NOTE | 2022-06-02 09:15 | NUR ---
REPORT RECEIVED FROM NIGHT RN AND PT. CARE RESUMED. PT. IS ALERT AND ORIENTED TO ALL. SHE DENIES PAIN AT THIS TIME. C/O OF MILD NAUSEA AND ADMIN PRN MED. PT. CONTINUES EATING BREAKFAST THOUGH. GIA DRAIN PATENT AND DRAINING SEROUS FLUID. MIDLINE SURG DRESSING IS DRY AND INTACT WITH SMALL AMOUNT OF OLD DRAINAGE. ASSESSMENT COMPLETED. PT. ENCOURAGED TO AMBULATE. LEFT RESTING WITH CALL LIGHT IN REACH.
--- NOTE | 2022-06-02 10:00 | NUR ---
PT. AMBULATED 2 LAPS AROUND THE UNIT AND TOLERATED WELL. DENIES PAIN. ASSESSMENT COMPLETED.
--- NOTE | 2022-06-02 11:08 | NUR ---
PATIENT VISITING WITH HER FAMILY. PATIENT'S DISCHARGE PLAN REMAINS UNCHANGED. PATIENT WILL GO HOME WITH HER . PATIENT DENIES THE NEED FOR DME AT HOME.PATIENT HAS A SUPORTIVE FAMILY AND WILL HELP NEEDED.
[2022-06-02] MEDS ORDERED: TAMSULOSIN HCL0.4 MG PO (13:06)
[2022-06-02] MEDS ORDERED: ACETAMINOPHEN500 MG PO (13:06)
[2022-06-02] MEDS ORDERED: OXYCODONE HCL5 MG PO (13:06)
[2022-06-02] MEDS ORDERED: GAS RELIEF125 M1 PO (13:07)
[2022-06-02] MEDS ORDERED: SUCRALFATE1 GM PO (13:08)
--- NOTE | 2022-06-02 13:24 | NUR ---
PATIENT GIVEN 12.5MG OF IV PHENERGAN FOR NAUSEA AFTER LUNCG. ECKERT D/C'D. PATIENT ENCOURAGED TO DRINK MORE WATER.
--- NOTE | 2022-06-02 13:41 | NUR ---
ROUNDING ON PT. SHE IS IN THE BATHROOM AND HAD A SMALL VOID OF 50ML. BLADDER SCANNED, BUT NO URINE IN BLADDER. ENCOURAGED TO DRINK WATER AND CALL WHEN READY TO VOID. DAUGHTER AT BEDSIDE.
--- NOTE | 2022-06-02 14:07 | NUR ---
PT ALERT, ORIENTED AND VISITING WITH FAMILY AT BS. PT SAID SHE IS READY TO DC-LOOKS LIKE SHE IS FEELING BETTER. EATING SMALL AMOUNTS OF FOOD, HAD GOOD VISIT. GAVE BLESSING AND WILL FOLLOW
--- NOTE | 2022-06-02 14:36 | NUR ---
PT. C/O NAUSEA AND ABDOMINAL PAIN. ADMIN PRN MEDS. FOCUS ASSESSMENT COMPLETED. BOWEL TONES ACTIVE. NO CHANGE TO MIDLINE INCISION SITE. DISCUSSED PUREED DIET WITH SMALL SIPS WHILE RECOVERING. FAMILY AT BEDSIDE. WILL CONTINUE TO MONITOR.
--- NOTE | 2022-06-02 14:48 | PATH ---
[facility] [address] [facility] [place], [place] [address] Signed SPECIMEN(S): A PORTION OF TRANSVERSE COLON AND STOMACH SPECIMEN(S): B TRANSVERSE COLON AND STOMACH MARGINS SPECIMEN SOURCE: A. PORTION OF TRANSVERSE COLON AND STOMACH B. 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 Margins. FINAL PATHOLOGIC DIAGNOSIS: A. Portion of transverse colon and stomach: - Invasive mucinous adenocarcinoma, clinically recurrent, with the following features: - Tumor site: Transverse colon. - Histologic type: Mucinous adenocarcinoma. - Histologic grade: Grade 3 (poorly differentiated). - Tumor size: 10.2 cm. - Tumor extent: Directly invades or adheres to adjacent structures (stomach). - Macroscopic tumor perforation: Present. - Lymph-vascular invasion: Not identified. - Perineural invasion: Not identified. - Treatment effect: No known presurgical therapy (clinical correlation needed). - Margins: - Margin status for invasive carcinoma: All margins negative for invasive carcinoma. - Margin status for noninvasive tumor: All margins negative for noninvasive tumor. - Regional lymph nodes: - All regional lymph nodes negative for tumor. - Number of lymph nodes examined: 8. - Tumor deposits: Not identified. 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 - KEITH/ELIZABETH testing: Please refer to studies previously performed (accession # [id number]) which were reported as BRAF V600E detected, KRAS mutation not PATIENT NAME: CAPRICE AMADOR PATHOLOGY DATE OF : 55 REPORT #: [id number] PHYSICIAN: [facility] PCP: NIKKY BARRIOS MD REPORT IS CONFIDENTIAL AND NOT TO BE RELEASED WITHOUT AUTHORIZATION [facility] [address] [place], [place] [address] Signed detected. - HER-2 by IHC: Please refer to studies previously performed (accession # [id number]) which were reported as negative (score 0). - If repeat ancillary testing is desired, please contact [employer] with prior authorization, if applicable. - Pathologic stage classification: [id number] rpN0. B. Transverse colon and stomach margins: - Gastric antral mucosa with focal complete intestinal metaplasia. - Gastric oxyntic mucosa with no significant pathologic changes. - Colonic mucosa with no significant pathologic changes. - Negative for invasive carcinoma. COMMENT: As part of [facility] Quality Improvement Program, this case was reviewed by another member of our pathology staff. BRP:DDF:[facility] company:[id number] MICROSCOPIC EXAMINATION: Histologic sections of all submitted blocks are examined by light microscopy. These findings, together with the gross examination, support the pathologic diagnosis. GROSS DESCRIPTION: A. The specimen, labeled and designated "Faraz Amador," and designated on the requisition "portion of transverse colon, portion of stomach with gastrocolic fistula from cancer," is received in formalin and consists of a portion of stomach that is firmly adherent to a portion of large bowel. Orientation of the stomach cannot be grossly assessed. The specimen is indurated. The 13.5 x 10.0 x 5.5 cm segment of stomach has been previously opened. The mucosal surface is pink and finely granular with an ulcerated mass that is 10.2 x 7.5 x 6.4 cm. The serosal surface has adherent red membranous tissue and a firmly adherent portion of connective tissue that is 4.2 x 3.1 cm (inked green). The remaining serosal surface is inked blue. The external surface displays multiple vessels closed with clips and black suture material. The attached segment of large bowel is 8.5 cm in length and has an average internal circumference of 7.0 cm. The segment of large bowel is firmly adherent to the indurated stomach. The serosa is inked blue. The stomach specimen edge is inked red. Upon opening the mucosal surface of the large bowel is graves-pink and finely granular with an irregular folding PATIENT NAME: CAPRICE AMADOR PATHOLOGY DATE OF : 55 REPORT #: [id number] PHYSICIAN: [facility] PCP: NIKKY BARRIOS MD REPORT IS CONFIDENTIAL AND NOT TO BE RELEASED WITHOUT AUTHORIZATION [address] [address] Signed pattern and 1.6 x 1.0 cm defect that extends into the adjacent attached stomach. The specimen is bivalved revealing the previously described mass has red heaped up edges, is 1.1 cm from the closest stomach specimen edge, 1.5 cm from the closest large bowel resection margin and 5.2 cm from the opposite large bowel resection margin. The mass extends through the stomach wall and into the adjacent large bowel lumen. Mass extends into the adjacent adipose tissue, abuts the adherent connective tissue (inked green), abuts the blue inked serosal surface, and is 1.5 cm from the closest grossly identifiable radial resection margin. The cut surface of the mass has a mucoid component. Upon dissection of the attached adipose tissue nine possible lymph nodes are grossly identified. Data Governance Analyst sections are submitted in seventeen cassettes. Cassette Summary: (A1) large bowel specimen edge, shave (A2-A3) opposite large bowel specimen edge, shave (A4-A5) vessel resection margins closed with black sutures and clips, shave and one possible lymph node at resection margin, sectioned (lymph node in A4) (A6) mass to uninvolved stomach (A7-A8) mass to uninvolved large bowel (A9) mass to adjacent pericolonic adipose tissue (A10) mass to closest stomach specimen edge (A11) masses to serosal surface and adherent connective tissue, perpendicular (A12-A14) radial resection margin, shave (A15) one possible lymph node, bisected (A16) six possible lymph nodes, submitted whole (A17) one possible lymph node, bisected B. The specimen, labeled and designated "Faraz Amador," and designated on the requisition "main specimen margin," is received in formalin and consists of five unoriented and undesignated segments of bowel wall and stomach that range in size from 4.5 x 1.4 x 1.2 cm up to 8.6 x 1.6 x 1.4 cm. The mucosal surface is pink focally. No mass lesions are grossly identified. The tissue is sectioned and entirely submitted in (B1-B16). FB (under the direct supervision of a pathologist) The Gross Description was prepared using a voice recognition system. The report was reviewed for accuracy; however, sound-alike word errors, addition and/or deletions may occur. If there is any question about this report, please contact Client Services. PATIENT NAME: CAPRICE AMADOR PATHOLOGY DATE OF : 55 REPORT #: [id number] PHYSICIAN: JERSEY MCQUEEN PCP: NIKKY BARRIOS MD REPORT IS CONFIDENTIAL AND NOT TO BE RELEASED WITHOUT AUTHORIZATION [facility] [address] [place] [id number] Signed PERFORMING LABORATORY: The technical component was performed by [facility], [address] [place] [address] (CLIA# [id number]). The professional interpretation was performed by [facility], [address] [address] (CLIA#: [id number]). Diagnostician: Tomer Gambino MD Pathologist Electronically Signed 06/02/2022 Copies: ~ PATIENT NAME: CAPRICE AMADOR PATHOLOGY DATE OF : 55 REPORT #: [id number] PHYSICIAN: JERSEY MCQUEEN PCP: NIKKY BARRIOS MD REPORT IS CONFIDENTIAL AND NOT TO BE RELEASED WITHOUT AUTHORIZATION
--- NOTE | 2022-06-02 14:51 | NUR ---
PT. UP TO BATHROOM TO VOID. VOIDED 100ML. ADMIN PAIN MED. AT BEDSIDE.
--- NOTE | 2022-06-02 15:45 | NUR ---
PT. C/O CONTINUED ABDOMINAL PAIN. ADMIN PRN MEDS. WILL CONTINUE TO MONITOR.
--- NOTE | 2022-06-02 16:31 | NUR ---
PT. C/O OF UNRELIEVED NAUSEA AND ABDOMINAL PAIN. MD UPDATED. VERBAL ORDERS GIVEN.WILL CONTINUE TO MONITOR.
--- NOTE | 2022-06-02 17:30 | NUR ---
PT. AMBULATED WITH SBA TO BATHROOM AND VOIDED. POST VOID RESIDUAL WAS 16ML. PT. ENCOURAGED TO DRINK FLUIDS. LEFT RESTING WITH CALL LIGHT IN REACH.
--- NOTE | 2022-06-02 19:12 | NUR ---
SHIFT REPORT RECEIVED FROM ELKE MOLINA. THIS RN ROUNDED ON pt AT 1945, pt REPORTS CONTINUED NAUSEA AND STATED, "I ASKED THEM EARLIER TO PUT ME OUT". POC DISCUSSED WITH pt. THERAPEUTIC COMMUNICATION PROVIDED. CALL LIGHT IN REACH, WILL MONITOR. pt RECENTLY MEDICATED WITH PRN NAUSEA MEDICATION.
--- NOTE | 2022-06-02 20:30 | NUR ---
pt AWAKE AND IN BED RESTING, REPORTS PAIN 8/10 IN ABD, PARTIAL SCHEDULED MEDS GIVEN-SEE EMAR WELL PRN NAUSEA MEDS AND ANXIETY MEDS. pt WAS TEARFUL AND ON THE PHONE WITH HER DAUGHTER. VSS, SBP ELEVATED BUT WITHIN PARAMETERS LIKELY D/T PAIN. CPOX IN PLACE. pt RECENTLY VOIDED 250MLS, FRESH WATER PROVIDED. pt EDUCATED TO TAKE ORAL SIPS CAUTIOUSLY AND TO NOT DRINK ANYTHING UNTIL NAUSEA RESOLVED, pt VERBALIZED UNDERSTANDING. pt LEFT RESTING IN THE BED, ON RA. RR EVEN AND UNLABORED. BED ALARM ON FOR SAFETY.
--- NOTE | 2022-06-02 22:13 | NUR ---
CALL LIGHT ANSWERED, pt REPORTS 6/10 PAIN, REPORTS 5/10 IS TOLERABLE AND WISHES TO GET PRN PAIN MEDS. PRN OXYCODONE GIVEN-SEE EMAR. REMAINING HS MEDS ALSO GIVEN. PORT DRESSING WNL, PORT FLUSHED AND HEP LOCKED PER PROTOCOL, BRISK BLOOD RETURN NOTED. pt BLADDER SCANNED, RESULT OF 380MLS BUT IMMEDIATELY AFTER BLADDER SCAN pt UP SBA TO VOID, pt VOIDED 300 MLS. BACK IN BED, ON RA. CPOX IN PLACE. CALL LIGHT IN REACH.
--- NOTE | 2022-06-02 23:00 | NUR ---
CALL LIGHT ANSWERED, pt UP SBA TO VOID. STEADY ON FEET, VOIDED AND BACK TO BED. NO ADDITIONAL NEEDS, pt REPORTS PAIN IMPROVING. CALL LIGHT IN REACH. CPOX IN PLACE, SPO2 WNL ON RA AND HR WNL.
--- NOTE | 2022-06-02 23:56 | NUR ---
CALL LIGHT ANSWERED, pt REPORTS NEED TO VOID. RODGER BELLAMY IN ROOM TO ASSIT pt TO BATHROOM.
--- NOTE | 2022-06-03 00:15 | NUR ---
pt RESTING IN BED WITH EYES CLOSED, ON RA. RR EVEN AND UNLABORED. NO DISTRESS NOTED. CPOX IN PLACE, SPO2 93%. HR WNL. CALL LIGHT IN REACH. WILL CONTINUE TO MONITOR.
--- NOTE | 2022-06-03 01:00 | NUR ---
pt RESTING IN BED WITH EYES CLOSED, ON RA. CPOX SHOW SPO2 ON RA 95%, HR LOW 90'S. WILL CONT TO MONITOR FOR CHANGES IN pt STATUS. CALL LIGHT IN REACH.
--- NOTE | 2022-06-03 02:41 | NUR ---
ROUNDED ON pt, PER RODGER BELLAMY pt REPORTS RESTLESS LEG AND REPORTS SHE TAKES GABAPENTIN AT HOME-CURRENTLY UNAVAILABLE IN pt's EMAR. PRN ATIVAN PROVIDED FOR ANXIETY/RESTLESSNESS IN BLE. BLE ALSO ELEVATED IN BED WITH PILLOWS. CPOX IN PLACE, SPO2 WNL WELL HR. CALL LIGHT IN REACH, WILL CONTINUE TO MONITOR. pt RESTING CURRENTLY IN [place] EYES CLOSED, ON RA-RR EVEN AND UNLABORED.
--- NOTE | 2022-06-03 04:11 | NUR ---
PT HAS GONE TO THE BATHROOM APPROXIMATELY EVERY 15-30 MINUTES WITH AN OUTPUT OF 200ML EACH TIME. PT BLADDER SCANNED AFTER LAST VOID WITH 0ML IN BLADDER.
--- NOTE | 2022-06-03 04:27 | NUR ---
ROUNDED ON pt, pt AWAKE. WHEN COMPLETING ASSESSMENT pt REPORTS 6/10 PAIN AND RESTLESS LEGS-PRN PAIN MEDICATION GIVEN (SEE EMAR). NO ACUTE CHANGES FROM PREVIOUS ASSESSMENT. WHEN ENTERING pt ROOM TO GIVE PRN OXY pt HAD EYES CLOSED, BUT OPENED EYES TO VOICE, REPORTS STARTING TO "DOZE OFF". NO ADDITIONAL NEEDS, CALL LIGHT IN REACH.
--- NOTE | 2022-06-03 06:15 | NUR ---
pt SLEPT OFF AND ON THIS SHIFT, SCHEDULED AND PRN PAIN MEDICATIONS PROVIDED TO KEEP PAIN AT TOLERABLE LEVEL. PRN NAUSEA MEDICATIONS ALSO PROVIDED, IMPROVED SHIFT WENT ON. MIDLINE INCISION WITH STERI STRIPS AND DRY OLD SHADOWING. pt SBA/INDEPENDENT IN ROOM, CALLS TO MAKE NEEDS KNOWN. RIGHT PORT-A-CATH DRESSING C/D/I-DUE TO BE CHANGED TODAY, SALINE LOCKED WITH GOOD BLOOD RETURN. PRN ATIVAN ALSO GIVEN FOR ANXIETY. pt VOIDING WELL, ON FULL LIQUID DIET-HAD VERY LITTLE IN D/T INCREASED NAUSEA EXPERIENCED ON DAYSHIFT. pt DUE FOR 7 DAY COVID SWAB IF NOT DC'D TODAY.
--- NOTE | 2022-06-03 06:26 | NUR ---
PT IN BED. VITALS AND IS AND OS COMPLETE. PT SET UP FOR SHOWER. RN NOTIFIED OF PT CO PAIN AND NAUSEA. NO NEEDS AT THIS TIME. PT IN CHAIR AWAITING RN. CALL LIGHT WITHIN REACH
--- NOTE | 2022-06-03 06:38 | NUR ---
INFORMED BY AEROSPACE MEDICINE PHYSICIAN pt REPORTS 10/18 ABD PAIN, pt NOT YET DUE FOR SCHEDULED OR PRN PAIN MEDICATION. pt OFFERED PRN GAS RELIEF MEDICATION AND PRN ZOFRAN, pt AGREES TO POC. RODGER BELLAMY IN ROOM TO ADMINISTER. CALL LIGHT IN REACH.
--- NOTE | 2022-06-03 07:18 | NUR ---
discussed with naomi via pharmacy regarding tylenol order. per emar, max 6 tablets. pt currently getting 1,000 mg q6h scheduled. per naomi, okay to give as directed for short term use. pt tentative for discharge today, dayshift vinicius merrill to ask md to make prn if not discharging today.
--- NOTE | 2022-06-03 08:25 | NUR ---
PT CALL LIGHT ANSWERED. PTREQ RN. RN W OTHER PT. I SENIOR RESEARCH ANALYST IN ROOM TO SEE IF I CAN ASSIST W ANYTHING. PT REQ TO LEAVE AND IS WANTING TO KNOW WHERE DC PAPER WORK IS. I LET PT KNOW I WILL NOTIFY GERIATRIC ASSISTANT. GERIATRIC ASSISTANT NOTIFIED
--- NOTE | 2022-06-03 10:47 | NUR ---
REPORT RECEIVED FROM NIGHT RN AND PT CARE RESUMED. PT. C/O NAUSEA AND ADMIN PRN MEDS. SHE TOOK A SHOWER AND IS RESTING IN BED. ASSESSMENT COMPLETED. MIDLINE STERI STRIPS DRY AND INTACT. BOWEL TONES HYPOACTIVE. PT. IS DRINKING SMALL SIPS OF PROTEIN DRINK. DAUGHTER AT BEDSIDE. WILL CONTINUE TO MONITOR.
--- NOTE | 2022-06-03 10:57 | NUR ---
PT C/O 08/18 PAIN, GIVEN RPN MEDICATION SEE EMAR. PT DENIES FURTHER NEEDS AT THIS TIME. CALL LIGHT WITHIN REACH. DAUGHTER AT BEDSIDE.
--- NOTE | 2022-06-03 10:58 | NUR ---
PT ASLEEP, DAUGHTER AT BS. DID NOT DISTURB PT. WILL CHECK BACK
--- NOTE | 2022-06-03 13:18 | NUR ---
ADMIN PRN MED FOR GAS. PT. REPORTS PAIN HAS IMPROVED SOMEWHAT. FOCUSED ASSESSMENT COMPLETED. CALL LIGHT IN REACH.
[2022-06-03] MEDS ORDERED: ONDANSETRON ODT8 MG PO (14:14)
--- NOTE | 2022-06-03 14:33 | DS ---
[facility] [address] [place], [place] [address] Signed ADMISSION DATE: 05/27/2022 DISCHARGE DATE: 06/02/2022 REASON FOR ADMISSION: This 66-year-old white woman is well known to me from the past. She is a patient of Dr. Vogel as well as Dr. Niels Obregon. In 2019, she underwent resection of colon with primary anastomosis and diverting loop ileostomy for perforated colon cancer. She subsequently underwent cholecystectomy as well as takedown of the ileostomy. Subsequent finding of secondary neoplasm of the transverse colon culminated right transverse colectomy. The patient was noted to have regionally advanced metastatic disease including wedge resection of a gastric implant and incontinuity resection of segment of jejunum related to the secondary colon cancer. She has undergone pembrolizumab therapy (Keytruda), which has been somewhat ineffective. She does have some distant metastases, but her most dominant problem most recently includes epigastric pain and significant diarrhea promptly after eating. A PET scan was performed under the direction of Dr. 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 I recently performed upper endoscopy and colonoscopy confirming a giant ulcerating mass in the stomach on the greater curve in the posterior aspect of the stomach. 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 A followup CT scan was performed which shows a relatively giant mass contiguous with the greater curvature and posterior aspect of the stomach directly extending into the neotransverse colon. The patient is admitted at this time to undergo resection of the gastric neoplasm as well as a portion of the transverse colon. She understands as does the family the risks of bleeding, infection, failure requiring another palliative approach, and of course, other unforeseen complications. Understanding this, she wished to proceed. FINDINGS: She underwent operation where she was found to have a dense mass, which is in the posterior aspect of the stomach covering at least 2/3rd of it, it was a deep 4 cm ulcerated central portion. The mass itself was a size of a cantaloupe and was contiguous with transverse colon itself. A prolonged operation nearly 7 hours in length allowed for complete resection of the mass and a sizable portion of the stomach and the Electronically Signed By: POPEYE WOMACK MD 06/03/22 1433 PATIENT NAME: CAPRICE AMADOR DISCHARGE SUMMARY DATE OF : 55 REPORT #: [id number] PHYSICIAN: POPEYE WOMACK MD PCP: NIKKY VOGEL MD REPORT IS CONFIDENTIAL AND NOT TO BE RELEASED WITHOUT AUTHORIZATION [facility] [address] [place], [place] [address] Signed neotransverse colon. Closure of the stomach defect was accomplished, preserving a good amount of the stomach and segmental resection of the transverse colon allow for primary anastomosis. The mass was directly adjacent to the entire portion of the pancreas and the pancreas was unharmed. Postoperatively, she was maintained with a drain in the posterior aspect and a nasogastric tube for decompression. She was found to be significantly anemic and underwent transfusion. Her hematocrit had been 18.2, preoperatively 30. This is notable considering she did not really have that much blood loss during the course of her main operation. She was maintained with antibiotics and gastric treatment to include PPI medication intravenously as well as Carafate orally. The drain was then placed showed only serous fluid. She had progressive recovery of bowel function and was begun on subsequently full liquid and ultimately a solid diet. A solid diet is met with some amount of epigastric discomfort, I suspect related to gastric distention and a full liquid diet will be maintained short-term pending complete recovery of her gastric function. The patient did have what appeared to be urinary retention for unclear reasons; the possibility of opiate use which was definitely required postoperatively may have contributed to this. She was begun on Flomax as a bladder relaxant (well proven even in females) and a voiding trial was performed two days prior to discharge, which was marginal at best. She will have a voiding trial before discharge. If she fails that, she will be discharged to home with Gillis catheter in place anticipating its removal in a week. If she passes a voiding trial, of course she will be discharged without Gillis catheter. At the time of discharge, the drain that had been in the retroperitoneum was removed as it showed only serous fluid. She is tolerating oral intake well. She has no signs now of diarrhea or gastrocolic fistula of course and although with some urinary retention is expected to recover fully from that. DISCHARGE MEDICATIONS: Her discharge medications will include: 1. Flomax 0.4 mg p.o. daily, #30. 2. Oxycodone 10 mg p.o. q.6 hours as needed for severe pain, #20. 3. Tylenol plain 500 mg two tablets p.o. q.6 hours, #60, refills 2. 4. Simethicone every 4 hours as needed for "gas" quantity #3, refill 3. 5. Carafate 1 g p.o. q.6 hours on empty stomach, #90, refill 3. 6. She will continue her usual medication of gabapentin 300 mg two tablets p.o. at bedtime. 7. Carvedilol 25 mg one tablet p.o. b.i.d. 8. Fluticasone Allergy Relief two sprays nasally as needed for allergies. Electronically Signed By: POPEYE WOMACK MD 06/03/22 2107 PATIENT NAME: CAPRICE AMADOR DISCHARGE SUMMARY DATE OF : 55 REPORT #: [id number] PHYSICIAN: POPEYE WOMACK MD PCP: NIKKY VOGEL MD REPORT IS CONFIDENTIAL AND NOT TO BE RELEASED WITHOUT AUTHORIZATION [facility] [address] [place], [place] [address] Signed 9. Sertraline 25 mg p.o. daily. 10. Lorazepam 1 mg p.o. q.4 hours as needed for anxiety. 11. Metformin 750 mg p.o. daily with dinner for diabetes. 12. Prilosec 40 mg p.o. daily before 1st meal. 13. Zofran 4 mg four times daily as needed for nausea. 14. Promethazine 25 mg p.o. q.6 hours as needed for nausea. 15. She will discontinue her diphenoxylate-atropine tablet and hydrocodone Tylenol. DISCHARGE DIAGNOSES: 1. 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 2. Status post resection a portion of stomach. All the retroperitoneal mass and portion of transverse colon. 3. Distant history of splenic flexure colon resection with anastomosis and diverting loop ileostomy, subsequent takedown of loop ileostomy and cholecystectomy. 4. Subsequent transverse colectomy for synchronous colon cancer with direct extension to jejunal loop and portion of mid stomach gastric metastasis (resected). 5. Obesity. 6. Gastroesophageal reflux. Popeye Womack MD JM/MODL /[id number] cc: MD Nikky Santiago MD Copies: NIELS OBREGON MD, RUSSEL J MD ~ Electronically Signed By: POPEYE WOMACK MD 06/03/22 1433 PATIENT NAME: CAPRICE AMADOR DISCHARGE SUMMARY DATE OF : 55 REPORT #: [id number] PHYSICIAN: POPEYE WOMACK MD PCP: NIKKY VOGEL MD REPORT IS CONFIDENTIAL AND NOT TO BE RELEASED WITHOUT AUTHORIZATION
== END 2022-06-03 14:40 | disposition home or self-care (01) | DRG 326 ==
LOC: DS 08:45 → CCU 18:55 → MS 05-29 13:40
PROVIDERS: ADMIT Surgery; ATTEND Surgery
PROC: 0DB60ZZ Excision of Stomach, Open Approach (ICD-10-PCS; principal; 2022-05-27 12:00)
PROC: 0DBL0ZZ Excision of Transverse Colon, Open Approach (ICD-10-PCS; 2022-05-27 12:00)
PROC: 0T9B30Z Drainage of Bladder with Drainage Device, Percutaneous Approach (ICD-10-PCS; 2022-05-30)
DX: C16.6 Malignant neoplasm of greater curvature of stomach, unspecified (principal); K25.4 Chronic or unspecified gastric ulcer with hemorrhage; K31.6 Fistula of stomach and duodenum; E66.9 Obesity, unspecified; K21.9 Gastro-esophageal reflux disease without esophagitis; Z20.822 Contact with and (suspected) exposure to COVID-19; R33.9 Retention of urine, unspecified; D64.9 Anemia, unspecified; Z68.29 Body mass index [BMI] 29.0-29.9, adult
CPT/HCPCS: 00840; 36415; 36430; 51702; 80048; 80053; 81003; 82150; 84132; 85025; 86850; 86900; 86901; 86922; 88305; 88307; 88309; 94760; A9270; C9803; J0131; J0690; J1100; J1170; J1644; J1815; J1885; J2001; J2060; J2270; J2405; J2550; J2704; J2795; J3010; J3475; J3480; J7060; J7121; P9016; U0003

== ENCOUNTER 2024-04-17 21:02 | Emergency (ER) | payer MEDICARE ==
[~2024-04-17] VITALS: Ht 162.6 cm; Wt 69.9 kg
[~2024-04-17 21:02] MED LIST changes: +BRAFTOVI75 MG PO; +GAS RELIEF125 M1 PO; +HYDROCODON-ACE1 EAC8 PO; +OMEPRAZOLE40 MG PO; +ONDANSETRON ODT4 MG PO; +REGLAN10 MG PO; +SUCRALFATE1 GM PO; +TAMSULOSIN HCL0.4 MG PO
[2024-04-17 21:17] LABS: BASE EXCESS, BLOOD GAS -14.9 mmol/L (-2-2); HCO3, BLOOD GAS 14.6 mmol/L (22-26); PCO2, BLOOD GAS 48.9 mmHg (35-45); PH, BLOOD GAS 7.08 (7.35-7.45); TOTAL CO2, BLOOD GAS 16.2
[2024-04-17 21:24] LABS: HEMATOCRIT 36.1 % (35.0-50.0); HEMOGLOBIN 10.9 g/dL (12.0-18.0); MCH 24.3 (27-36); MCHC 30.1 g/dl (30-36); MCV 80.8 fl (81-99); PLATELET COUNT 313 K/uL (140-440); RBC 4.47 M/ul (4.3-5.7); RDW 17.8 (10.5-15.0)
[2024-04-17 21:26] LABS: BILIRUBIN, URINE NEGATIVE (negative); BLOOD/HGB, URINE SMALL (Negative); KETONE, URINE NEGATIVE (Negative); LEUK ESTERASE, URINE NEGATIVE (negative); NITRITE, URINE NEGATIVE (negative)
[2024-04-17] MEDS ORDERED: SODIUM BICARBONATE 150 MEQ in DEXTROSE 5% 1,000 ML IV SCH (21:30)
[2024-04-17] MEDS ORDERED: NOREPINEPHRINE BITARTRATE 250 ML IV SCH (21:30)
[2024-04-17] MEDS ORDERED: SODIUM CHLORIDE 0.9% 1,000 ML IV SCH (21:30)
[2024-04-17] MEDS ORDERED: SODIUM BICARBONATE 50 MEQ/50 ML VIAL IV ONE (21:30)
[2024-04-17 21:33] LABS: EPITHELIAL CELLS, URINE NONE SEEN /lpf (0-1+)
[2024-04-17 21:34] LABS: BACTERIA, URINE RARE /hpf (negative); CASTS, URINE GRANULAR 2+ \\lpf; COLLECTION TYPE, URINE CLEAN CATCH; CRYSTALS, URINE NONE SEEN (0-1+); REFLEX CULTURE, URINE Yes (No)
[2024-04-17 21:36] LABS: INR 1.15 (0.80-1.30); PROTIME 14.6 Sec (11.2-14.2)
[2024-04-17] MEDS ORDERED: SODIUM BICARBONATE 50 MEQ/50 ML VIAL ONE ×2 (21:38→21:39)
[2024-04-17 21:42] LABS: BANDS, MANUAL DIFF 3; LYMPHOCYTES, MANUAL DIFF 26; MONOCYTES, MANUAL DIFF 1; NEUTROPHILS, MANUAL DIFF 70
[2024-04-17 21:42] LABS: AMPHETAMINES, URINE NEGATIVE (NEGATIVE); BARBITURATES, URINE NEGATIVE (NEGATIVE); BENZODIAZEPINE, URINE NEGATIVE (NEGATIVE); BUPRENORPHINE, URINE NEGATIVE (NEGATIVE); CANNABINOID, URINE POSITIVE (NEGATIVE); COCAINE, URINE NEGATIVE (NEGATIVE); ECSTASY, URINE NEGATIVE (NEGATIVE); FENTANYL, URINE POSITIVE (NEGATIVE); METHADONE, URINE NEGATIVE (NEGATIVE); OPIATES, URINE POSITIVE (NEGATIVE); OXYCODONE, URINE NEGATIVE (NEGATIVE); PHENCYCLIDINE, URINE NEGATIVE (NEGATIVE)
[2024-04-17 21:46] LABS: ALBUMIN/GLOBULIN RATIO 0.77 (1.1-2.4); BILIRUBIN, TOTAL 0.2 ng/dL (0.2-1.0); BUN/CREATININE RATIO 9.21 (6.0-28.6); CALCIUM 8.5 mg/dL (8.5-10.1); CREATININE, SERUM 1.41 mg/dL (0.55-1.02); MAGNESIUM 2.1 mg/dL (1.8-2.4); PROTEIN, TOTAL 6.9 g/dL (6.4-8.2)
[2024-04-17] MEDS ORDERED: propofoL 100 ML IV SCH ×2 (22:00)
[2024-04-17] MEDS ORDERED: propofoL 200 MG/20 ML VIAL IV ONE (22:30)
[2024-04-17] MEDS ORDERED: MAGNESIUM SULFATE 1 GM/2 ML VIAL IV ONE (22:45)
[2024-04-17] MEDS ORDERED: FENTANYL CITRATE-0.9 % NACL/PF 100 ML IV SCH (22:45)
[2024-04-17] MEDS ORDERED: LIDOCAINE HCL IV SCH ×2 (22:45)
[2024-04-17] MEDS ORDERED: DEXTROSE IV SCH (22:45)
[2024-04-17] MEDS ORDERED: CEFTRIAXONE/SODIUM CHLORIDE 2 GM/100 ML PIGGYBACK IV ONE (22:45)
[2024-04-17] MEDS ORDERED: CALCIUM CHLORIDE 1,000 MG/10 ML SYR IV ONE (22:45)
[2024-04-17 23:08] LABS: PH, VENOUS 7.299 (7.31-7.41)
[2024-04-17] MEDS ORDERED: METOPROLOL TARTRATE 5 MG/5 ML VIAL IV ONE (23:15)
[2024-04-17] MEDS ORDERED: ENALAPRILAT DIHYDRATE 1.25 MG/ML VIAL IV ONE (23:45)
[2024-04-18] MEDS ORDERED: OMEPRAZOLE40 MG (00:36)
[2024-04-18] MEDS ORDERED: LOSARTAN POTASS25 MG (00:37)
[2024-04-18] MEDS ORDERED: FENTANYL1 EAC2 (00:37)
[2024-04-18] MEDS ORDERED: FENTANYL1 EACH (00:37)
[2024-04-18] MEDS ORDERED: ONDANSETRON ODT8 MG (00:37)
[2024-04-18] MEDS ORDERED: FUROSEMIDE 40 MG/4 ML VIAL IV ONE (00:45)
[2024-04-18 01:31] LABS: PH, VENOUS 7.364 (7.31-7.41)
[2024-04-18 01:50] LABS: ANION GAP 13.6 (7-21); BUN/CREATININE RATIO 14.78 (6.0-28.6); CALCIUM 9.1 mg/dL (8.5-10.1); CREATININE, SERUM 1.15 mg/dL (0.55-1.02); POTASSIUM 4.6 mmol/L (3.5-5.1)
[2024-04-18] MEDS ORDERED: Insulin Regular, Human 100 UNIT/ML ML IV ONE (02:15)
[2024-04-18 02:51] VITALS: BP 132/66
--- NOTE | 2024-04-18 22:57 | EKG ---
[facility] [address] [place] [address] Signed Normal sinus rhythm Prolonged QT Abnormal ECG When compared with ECG of 31-DEC-2021 21:17, Criteria for Inferior infarct are no longer present T wave inversion no longer evident in Inferior leads Confirmed by Edwin Parra MD () on 04/18/2024 10:57:41 PM Electronically Signed By: EDWIN PARRA MD 04/18/24 2257 PATIENT NAME: CAPRICE AMADOR Electrocardiogram DATE OF : 55 PHYSICIAN: EDWIN PARRA MD REPORT #: [id number] REPORT IS CONFIDENTIAL AND NOT TO BE RELEASED WITHOUT AUTHORIZATION
== END 2024-04-18 03:00 | disposition short-term general hospital (02) ==
LOC: ED 21:02
PROVIDERS: Family Medicine
DX: I46.9 Cardiac arrest, cause unspecified (principal); J81.1 Chronic pulmonary edema; C18.9 Malignant neoplasm of colon, unspecified; K86.89 Other specified diseases of pancreas; S22.43XA Multiple fractures of ribs, bilateral, initial encounter for closed fracture; S22.22XA Fracture of body of sternum, initial encounter for closed fracture; X58.XXXA Exposure to other specified factors, initial encounter; N39.0 Urinary tract infection, site not specified; E11.9 Type 2 diabetes mellitus without complications; Z95.5 Presence of coronary angioplasty implant and graft; Z87.891 Personal history of nicotine dependence; Z88.0 Allergy status to penicillin; Z88.8 Allergy status to other drugs, medicaments and biological substances; Z79.899 Other long term (current) drug therapy
CPT/HCPCS: 31500; 36415; 36556; 36600; 36680; 51702; 71045; 71260; 80048; 80053; 80307; 81001; 82803; 83605; 83735; 83880; 84484; 85025; 85610; 85730; 87040; 87088; 93005; 93010; 96368; 99285-25; J0696; J1815; J1940; J2003; J2704; J3010; J3475; J7030; J7070